=== PATIENT | male | born 1965 | race Caucasian/White ===

== ENCOUNTER → 2016-05-15 | Outpatient (CLI) | payer OTHER ==
[~2016-05-15] MED LIST: ACET-1256 PO; AMLO-114 PO; APDI SC; ASPI325T39 PO; ASPI81TA28 PO; CALC0.2510 PO; CALC667C; CIPR1TAB11 PO; CLOB-65 EXT; ERGO500037 PO; FLM4 PO; INSDGI SC; LEVO50TA6 PO; LINE1TAB6 PO; LPT/20 PO; LSN5 PO; OXYC-57 PO; OXYC1TAB3 PO; TAMS0.4C38 PO; TORS100T13 PO; ZOLP5TAB PO
--- NOTE | 2016-05-15 13:38 | DIAGNOSTIC IMAGING REPORT ---
CT SOFT TISSUE NECK WITHOUT CT DOSE: 502.27 mGy.cm CLINICAL HISTORY: Submandibular gland mass. TECHNIQUE: Images were acquired without intravenous contrast. COMPARISON STUDY: None FINDINGS: By history there was a thyroid ultrasound which reported submandibular mass. I presume that this was performed at an outside institution as there are no ultrasound studies from this institution. The visualized portions of the lung apices are unremarkable. There are tiny bilateral thyroid nodules. No submandibular gland masses are visualized on this noncontrast study. No suspicious parotid gland masses are visualized on this noncontrast study. Tiny intraparotid nodules likely represent lymph nodes. No mucosal space masses are visualized. There is no pathologic adenopathy. IMPRESSION: 1. Multinodular thyroid gland 2. No evidence of pathologic adenopathy 3. No submandibular masses are visualized on this noncontrast examination Electronically signed by: Blayne Auguste M.D. 05/15/2016 1:37 PM Dictated Date/Time: 05/15/2016 1:30 PM
[2016-05-15 15:28] LABS: BLOOD UREA NITROGEN 55 mg/dl (7-18); BUN/CREATININE RATIO 7.3 (10-20); CALCIUM 9.2 mg/dl (8.5-10.1); CARBON DIOXIDE 27 mmol/L (21-32); CHLORIDE 103 mmol/L (98-107); GLUCOSE 102 mg/dl (70-99); MAGNESIUM 2.6 mg/dl (1.8-2.4); PHOSPHORUS 5.4 mg/dl (2.5-4.9); POTASSIUM 3.5 mmol/L (3.5-5.1); SODIUM 142 mmol/L (136-145)
== END | disposition home or self-care (01) ==
LOC: C.CTS 12:09
PROVIDERS: ATTEND Nurse Practitioner Adult Health
DX: K11.8 Other diseases of salivary glands (principal); E55.9 Vitamin D deficiency, unspecified; N18.5 Chronic kidney disease, stage 5

== ENCOUNTER → 2016-06-05 | Outpatient (CLI) | payer OTHER ==
[~2016-06-05] MED LIST changes: +BUPIVACAINE/EPINEPHRINE 0.5% MPF 1:200,000 30 ML VIAL ONE; +HEPARIN SOD (PORCINE) 1000 UNIT/ML 10 ML VIAL ONE; +LIDOCAINE HCL 1% 20 ML VIAL ONE; +SODIUM BICARBONATE 8.4% INJ 50 MEQ/50 ML VIAL ONE
[2016-06-05 13:20] LABS: HEPATITIS B AB NEG
== END | disposition home or self-care (01) ==
LOC: C.LABPBG 08:46
PROVIDERS: ATTEND Internal Medicine Nephrology
DX: R80.9 Proteinuria, unspecified (principal)

== ENCOUNTER 2016-06-13 05:27 | Day surgery (SDC) | payer OTHER ==
[2016-05-31 15:26] VITALS: BMI 33.0
[2016-06-05 12:49] LABS: BASO % 0.4 %; BASO ABS # 0.03 K/uL (0-0.2); COMPLETE YES; HEMATOCRIT 37.4 % (42-52); LYMPH % 15.2 %; LYMPH ABS # 1.04 K/uL (1.2-3.4); MEAN CELL VOLUME 85.2 fL (80-100); MEAN CORPUSCULAR HEMOGLOBIN 29.2 pg (25-34); MEAN CORPUSCULAR HGB CONC 34.2 g/dl (32-36); NEUT % 74.4 %; PLATELET COUNT 212 K/uL (130-400); RED BLOOD COUNT 4.39 M/uL (4.7-6.1); WHITE BLOOD COUNT 6.83 K/uL (4.8-10.8)
[2016-06-05 13:03] LABS: INR 0.9 (0.9-1.1); PARTIAL THROMBOPLASTIN RATIO 1.1; PROTHROMBIN TIME (PATIENT) 10.1 SECONDS (9.0-12.0)
[2016-06-05 13:18] LABS: BUN/CREATININE RATIO 7.4 (10-20); PHOSPHORUS 4.9 mg/dl (2.5-4.9); POTASSIUM 3.7 mmol/L (3.5-5.1)
[2016-06-05 13:25] LABS: CREATININE 7.4 mg/dl (0.60-1.40)
[~2016-06-13] VITALS: Ht 182.9 cm; Wt 110.5 kg
[~2016-06-13 05:27] MED LIST changes: -ASPI325T39 PO; -BUPIVACAINE/EPINEPHRINE 0.5% MPF 1:200,000 30 ML VIAL ONE; -CALC667C; -CIPR1TAB11 PO; -FLM4 PO; -HEPARIN SOD (PORCINE) 1000 UNIT/ML 10 ML VIAL ONE; -LIDOCAINE HCL 1% 20 ML VIAL ONE; -LINE1TAB6 PO; -LSN5 PO; -OXYC-57 PO; -OXYC1TAB3 PO; -SODIUM BICARBONATE 8.4% INJ 50 MEQ/50 ML VIAL ONE; -TAMS0.4C38 PO
[2016-06-13] MEDS ORDERED: CLINDAMYCIN 600 MG/54 ML D5W IV SCH (06:00)
[2016-06-13] MEDS ORDERED: CLINDAMYCIN IV 600 MG in DEXTROSE 5% ADD-VANTAGE 50ML 50 ML IV SCH (06:00)
[2016-06-13] MEDS ORDERED: SODIUM CHLORIDE 0.9% 1000ML 1,000 ML IV SCH (06:00)
--- NOTE | 2016-06-13 06:13 | History and Physical ---
History & Physical Date of Service Jun 13, 2016. History & Physical CC: End stage renal disease HPI: Mr. Hernandez states that he had a left nephrectomy due to renal cancer back in 2014 and that he generally did well postoperatively. He states that he has had some chronic kidney disease related to his single remaining kidney that has progressed somewhat. He had a peritoneal catheter inserted which was buried. He now needs to start dialysis and needs to have his catheter exteriorized. Specifically, denies any headaches, fevers, chills, dizziness, chest pain, shortness of breath, abdominal pain, nausea, vomiting, diarrhea, constipation, dysuria, hematuria, rest pain, claudication, nonhealing wounds or ulcers, or other complaints. ALLERGIES: INCLUDE PENICILLIN. HOME MEDICATIONS: Reconciled in the chart and include the following: Ambien, amlodipine, Bumex, calcitriol, carvedilol, clobetasol, and Tylenol. PAST MEDICAL HISTORY: Positive for hypertension, kidney cancer, and chronic kidney disease. SURGICAL HISTORY: Positive for a left nephrectomy which was attempted to be performed laparoscopically although a left lower incision was required to have it removed. He also had a kidney biopsy back in 2014 and a cardiac catheterization back in 2009 which was normal. FAMILY HISTORY: Positive for cancer in his brother, father and mother; diabetes in two of his brothers and both of his parents; hypertension in three brothers and his mother; kidney disease in a brother and stroke in his father. SOCIAL HISTORY: Negative for tobacco, alcohol or drug use. REVIEW OF SYSTEMS: Negative for fatigue, fevers, sweats, weight loss, exercise intolerance, abnormal moles or rashes, vision changes or photophobia, ear pain, sinus problems, sore throat, cough, shortness of breath, or wheezing, chest pain , palpitations, edema or syncope, abdominal pain, nausea, vomiting, diarrhea, constipation, dysuria, hematuria, rest pain, claudication, muscle weakness, headaches, dizziness, numbness or seizures. PHYSICAL EXAM: His vital signs today were as follows: Heart rate 16, oxygen 98 % on room air. The patient is 72 inches tall and weighs 239 pounds. Constitutional: In general, the patient is a healthy-appearing, for age, well- nourished, well-developed middle-aged male in no acute distress. He is overweight. He is active, alert and oriented x4 with normal recent and remote memory. His head is normocephalic and atraumatic. His eyes are EOMI. His HEENT exam demonstrates no hearing loss, rhinorrhea or pharyngeal erythema. His neck is supple, nontender with a midline trachea without mass or crepitus. His lung exam demonstrates no dyspnea. They are clear to auscultation bilaterally. His cardiovascular exam demonstrates a nondisplaced apical impulse with a regular rate and rhythm without murmurs, lifts, heaves, thrills or gallops. His peripheral pulses are full and equal in all extremities unless otherwise noted, specifically they are normal in his carotid, brachial, radial and femoral pulses. His distal pulses are +2 bilaterally. He demonstrates no bruits in his carotid, abdominal or femoral area. His abdomen is soft, nontender with normoactive bowel sounds in all four quadrants without guarding or rebound. Incisions are healed well. There is no flank or CVA tenderness. His left lower quadrant does demonstrate a transverse surgical incision which is well-healed. He has two small incisions in the left upper quadrant in mid area, one of which has a small erythematous area, which the patient states is due to a suture knot that externalized itself recently. His musculoskeletal exam demonstrates normal tone and strength for age. His bilateral upper extremities demonstrate no cyanosis, edema, clubbing, varicosities or ulcers. His bilateral lower extremities demonstrate trace edema, with no cyanosis, clubbing, ulcerations or gangrene. The patient has grossly intact cranial nerves and grossly intact sensation. ASSESSMENT AND PLAN: End-stage renal disease, not yet on hemodialysis, status post nephrectomy. Post peritoneal catheter insertion. PLAN: Patient is admitted for exteriorization of his peritoneal catheter. The procedure, risks, benefits and alternatives were discussed at length with the patient and he expressed understanding and agreement to proceed with the procedure.
[2016-06-13] MEDS ORDERED: KETAMINE HCL INJ 50 MG/ML 10 ML VIAL ONE (06:28)
[2016-06-13] MEDS ORDERED: PROPOFOL IV EMULSION 10 MG/ML 20 ML VIAL IV ONE (06:28)
[2016-06-13] MEDS ORDERED: SODIUM CHLORIDE 0.9% INJ 10 ML VIAL ONE (06:28)
[2016-06-13] MEDS ORDERED: FENTANYL CITRATE INJ 50 MCG/1 ML 2 ML VIAL ONE (06:28)
[2016-06-13] MEDS ORDERED: MIDAZOLAM HCL 1 MG/ML 2ML VIAL ONE (06:28)
[2016-06-13] MEDS ORDERED: ONDANSETRON INJ 2 MG/ML 2 ML VIAL ONE (06:28)
[2016-06-13] MEDS ORDERED: LIDOCAINE HCL 2% 2 ML VIAL (20MG/ML) ONE (06:28)
[2016-06-13 06:30] VITALS: BP 150/91; PULSE 61; TEMP 36.7; O2SAT 95; Ht 182.9 cm; Wt 110.5 kg
[2016-06-13 06:46] LABS: BUN/CREATININE RATIO 7.1 (10-20); CALCIUM 8.6 mg/dl (8.5-10.1); CREATININE 7.3 mg/dl (0.60-1.40); POTASSIUM 3.4 mmol/L (3.5-5.1)
[2016-06-13] MEDS ORDERED: HEPARIN SOD (PORCINE) 5000 UNIT/ML 1 ML VIAL ONE (07:06)
[2016-06-13] MEDS ORDERED: LACTATED RINGER'S 1000ML 1,000 ML IV PRN (07:21)
[2016-06-13] MEDS ORDERED: FENTANYL CITRATE INJ 50 MCG/1 ML 2 ML VIAL IV PRN (07:30)
[2016-06-13] MEDS ORDERED: ONDANSETRON INJ 2 MG/ML 2 ML VIAL IV PRN (07:30)
--- NOTE | 2016-06-13 07:36 | History & Physical Bridge Note ---
H&P Re-Evaluation Bridge Note: I have examined the patient, reviewed the History & Physical and in the interval since the performance of the History & Physical I have noted the following changes of clinical significance: No changes noted
[2016-06-13] MEDS ORDERED: MIX: 0.5% BUPIVICAINE 20ML/1% LIDO 20ML INJ ONE (08:12)
[2016-06-13] MEDS ORDERED: HEPARIN 1000 UNIT/ML FLUSH ONE (08:13)
[2016-06-13] MEDS ORDERED: ALTEPLASE, RECOMBINANT 1 MG/ML 2 ML VIAL IV ONE (08:15)
[2016-06-13] MEDS ORDERED: OXYC-57 PO (08:22)
--- NOTE | 2016-06-13 08:22 | [facility] Post Operative Brief Note ---
Immediate Operative Summary Operative Date Jun 13, 2016. Pre-Operative Diagnosis End Stage Renal Disease, Post Operative Peritoneal Diaylsis Catheter Placement. Post-Operative Diagnosis Same as preoperative. Procedure(s) Performed Externalization of CAPD Catheter Surgeon Multimedia Teacher Surgeon(s) Ludy Gan PA-C Estimated Blood Loss 2ML Findings flushed easily, instilled with cathflo Specimens None per surgeon Anesthesia MAC Complication(s) None Disposition Recovery Room / PACU
--- NOTE | 2016-06-13 08:24 | Discharge Instructions ---
Discharge Instructions Visit Reason for Visit: End Stage Renal Disease Discharge Discharge Diagnosis / Problem: End stage renal disesase Discharge Goals Goal(s): Therapeutic intervention Activity Recommendations Activity Limitations: per Instructions/Follow-up section Anesthesia . Post Anesthesia Instructions: If you have had General Anesthesia or IV Sedation: * Do not drive today. * Resume driving when surgeon permits. * Do not make important decisions or sign legal documents today. * Call surgeon for: 1. Temperature elevations greater than 101 degrees F. 2. Uncontrollable pain. 3. Excessive bleeding. 4. Persistent nausea and vomiting. 5. Medication intolerance (nausea, vomiting or rash). * For nausea and vomiting use only clear liquids such as: tea, soda, bouillon until nausea subsides, then gradually increase diet as tolerated. * If you have any concerns or questions, call your surgeon's office. If physician is unavailable and it is an emergency, call 911 or go to the nearest emergency room. . Instructions / Follow-Up Instructions / Follow-Up Call [phone] to schedule a follow up appointment if one not already scheduled. Do not shower until peritoneal dialysis nurses give the ok ACTIVITY RECOMMENDATIONS: See Above SPECIAL CARE INSTRUCTIONS: Call your doctor if: * Temperature above 101 degrees * Pain not relieved by pain medicine ordered * There is increased drainage or redness from any incision * You have any unanswered questions or concerns. Diet Recommendations Recommended Home Diet: resume previous diet Procedures Procedures Performed: Externalization of CAPD Catheter Pending Studies Studies pending at discharge: no Medical Emergencies . Who to Call and When: Medical Emergencies: If at any time you feel your situation is an emergency, please call 911 immediately. . Non-Emergent Contact Non-Emergency issues call your: Surgeon . . "Provider Documentation" section prepared by Hunter Lozoya.
--- NOTE | 2016-06-13 08:40 | Anesthesiology Progress Note ---
Anesthesia Post Op Note Date & Time Jun 13, 2016 at 08:40 Vital Signs Pain Intensity: 3 Vital Signs Past 12 Hours Date Time Temp Pulse Resp B/P Pulse Ox O2 Delivery O2 Flow Rate FiO2 06/13/16 08:30 57 18 136/94 96 Room Air 06/13/16 08:23 37.2 61 16 148/101 99 Room Air 06/13/16 06:30 36.7 61 20 150/91 95 Room Air Notes Mental Status: alert / awake / arousable, participated in evaluation Pt Amnestic to Procedure: Yes Nausea / Vomiting: adequately controlled Pain: adequately controlled Airway Patency, RR, SpO2: stable & adequate BP & HR: stable & adequate Hydration State: stable & adequate Anesthetic Complications: no major complications apparent Pt doing well.
[2016-06-13 08:45] VITALS: BP 133/91; PULSE 54; TEMP 36.6; O2SAT 95
[2016-06-13 09:15] VITALS: BP 131/94; PULSE 53; TEMP 36.5; O2SAT 95
--- NOTE | 2016-06-13 09:19 | OPERATIVE REPORT ---
DATE OF OPERATION: 06/13/2016 DATE OF PROCEDURE: 06/13/2016. PREOPERATIVE DIAGNOSIS: End-stage renal disease, insertion of continuous ambulatory peritoneal dialysis catheter. POSTOPERATIVE DIAGNOSIS: Same. PROCEDURE: Exteriorization of CAPD catheter. SURGEON: Dr. Lozoya. CUSTOM HARVESTER: Ludy Gan PA-C. ANESTHETIC: MAC. PROCEDURE INDICATIONS: The patient is a 50-year-old gentleman who had a PD catheter placed last September. He is now ready for exteriorization. Exteriorization of the catheter was discussed with the patient and he understood the risks, options and benefits and agreed to have this procedure. OPERATION AND FINDINGS: The patient was taken to the operating room and placed in supine position. After the abdomen was prepped and draped in a sterile manner, local anesthetic was administered. The old incision was then opened approximately 3 cm. The catheter was identified. It was brought out through a separate stab wound just lateral to the incision. Incision had adequate hemostasis and was therefore closed with running 3-0 Vicryl subcutaneous layer and running 4-0 subcuticular Vicryl for the skin edges and Dermabond for a dressing. The catheter was then aspirated and flushed with heparinized saline. It flushed fairly easily. There was some old blood in the catheter so we decided to instill Cathflo in the catheter. This will be taken out at a later time in dialysis. The injected saline was almost all able to be retrieved as outflow. The dressings were then applied to the wound. The patient left the operating room in satisfactory condition and tolerated the procedure well. Ludy Gan assisted due to lack of resident availability. I attest to the content of the Intraoperative Record and any orders documented therein. Any exceptio ns are noted below.
--- NOTE | 2016-06-13 14:03 | Progress Note ---
Progress Note Date of Service Jun 13, 2016. Progress Note I assisted Dr Lozoya with Sesar Hernandez's Externalization of CAPD Catheter on , d/t lack of resident availability.
[2016-08-13] MEDS ORDERED: TAMS0.4C38 PO (12:28)
== END 2016-06-13 09:52 | disposition home or self-care (01) ==
LOC: C.ACU 05:27
PROVIDERS: ATTEND Surgery Vascular Surgery
DX: I12.0 Hypertensive chronic kidney disease with stage 5 chronic kidney disease or end stage renal disease (principal); N18.6 End stage renal disease; Z85.528 Personal history of other malignant neoplasm of kidney; Z99.2 Dependence on renal dialysis; Z90.5 Acquired absence of kidney; Z84.1 Family history of disorders of kidney and ureter; Z80.9 Family history of malignant neoplasm, unspecified

== ENCOUNTER → 2016-06-22 | Outpatient (CLI) | payer OTHER ==
[~2016-06-22] MED LIST changes: +ASPI325T39 PO; +CALC667C; +CIPR1TAB11 PO; +FLM4 PO; +LINE1TAB6 PO; +LSN5 PO; +OXYC-57 PO; +OXYC1TAB3 PO; +TAMS0.4C38 PO
--- NOTE | 2016-06-22 13:16 | DIAGNOSTIC IMAGING REPORT ---
ABDOMEN AND PELVIS CT WITHOUT CONTRAST CT DOSE: 1224.18 mGy.cm HISTORY: None functioning catheter END STAGE RENAL DISEASE, NON FUNCTIONING PD CATH TECHNIQUE: Multiaxial CT images of the abdomen and pelvis were performed without contrast. COMPARISON STUDY: 04/04/2016 FINDINGS: Lung bases are clear. Mild fatty infiltration of liver. Gallbladder is negative for distention. Prior left effectively. Right kidney is negative for hydronephrosis. The adrenal glands are currently unremarkable. Peritoneal dialysis catheter is inserted via periumbilical approach with catheter coiled in the left paracolic gutter region. It is essentially unchanged compared to the prior exam. There is no evidence for surrounding mass or collection. Bowel pattern is nonobstructive. Bladder is relatively collapsed. There is no significant free fluid within the pelvic cul-de-sac. The appendix is normal. IMPRESSION: 1. Peritoneal dialysis catheter is unchanged in position compared to the prior study. 2. Nonobstructive bowel pattern. 3. Normal appendix. 4. Stable postoperative changes consistent with a prior left nephrectomy. Electronically signed by: Shree Stokes M.D. 06/22/2016 1:14 PM Dictated Date/Time: 06/22/2016 1:08 PM
== END | disposition home or self-care (01) ==
LOC: C.CTS 12:52
PROVIDERS: ATTEND Surgery Vascular Surgery
DX: N18.6 End stage renal disease (principal)

== ENCOUNTER 2016-07-03 09:07 | Inpatient (IN) | payer OTHER ==
[~2016-07-03] VITALS: Ht 182.9 cm; Wt 109.7 kg
[~2016-07-03 09:07] MED LIST changes: -ASPI325T39 PO; -CALC667C; -CIPR1TAB11 PO; -FLM4 PO; -LINE1TAB6 PO; -LSN5 PO; -OXYC-57 PO; -OXYC1TAB3 PO; -TAMS0.4C38 PO
--- NOTE | 2016-07-03 10:08 | DIAGNOSTIC IMAGING REPORT ---
CHEST ONE VIEW PORTABLE CLINICAL HISTORY: Sepsis COMPARISON STUDY: 12/15/2015 FINDINGS: The cardiac and mediastinal contours are normal. There is no evidence of focal pulmonary consolidation. There is no evidence of failure. No pleural effusions are visualized.[ There is a calcified left upper lobe granuloma.. IMPRESSION: No active disease in the chest. Electronically signed by: Blayne Auguste M.D. 07/03/2016 10:07 AM Dictated Date/Time: 07/03/2016 10:06 AM
[2016-07-03 10:10] LABS: BASO % 0.1 %; BASO ABS # 0.02 K/uL (0-0.2); COMPLETE YES; EOS % 0.5 %; HEMATOCRIT 37.6 % (42-52); IG% 0.4 %; LYMPH % 4.2 %; LYMPH ABS # 0.77 K/uL (1.2-3.4); MEAN CELL VOLUME 84.7 fL (80-100); MEAN CORPUSCULAR HEMOGLOBIN 28.8 pg (25-34); MEAN PLATELET VOLUME 11.6 fL (7.4-10.4); MONO % 3.1 %; NEUT % 91.7 %; PLATELET COUNT 251 K/uL (130-400); RED BLOOD COUNT 4.44 M/uL (4.7-6.1); WHITE BLOOD COUNT 18.49 K/uL (4.8-10.8)
[2016-07-03 10:20] LABS: PARTIAL THROMBOPLASTIN RATIO 1.1; PROTHROMBIN TIME (PATIENT) 10.7 SECONDS (9.0-12.0)
[2016-07-03] MEDS ORDERED: ASPI325T39 PO (10:29)
[2016-07-03 10:30] LABS: ALB/GLOB RATIO 0.9 (0.9-2); CALCIUM 9.6 mg/dl (8.5-10.1); CREATININE 8.3 mg/dl (0.60-1.40); POTASSIUM 3.4 mmol/L (3.5-5.1)
[2016-07-03 11:12] LABS: URINE APPEARANCE CLEAR (CLEAR); URINE BILIRUBIN NEG (NEG); URINE COLOR YELLOW; URINE EPITHELIAL CELL AUTO 20-30 /lpf (0-5); URINE NITRITE NEG (NEG); URINE SPECIFIC GRAVITY 1.019 (1.000-1.030); UROBILINOGEN NEG (NEG); ZZUR CULT IF INDIC CLEAN CATCH NO
[2016-07-03 11:19] LABS: MANUAL MICROSCOPIC REQUIRED? NO; REVIEW REQ? NO
[2016-07-03] MEDS ORDERED: MoRPHine SULFATE 4 MG/ML 1 ML CARP\\VIAL IV STA (12:36)
[2016-07-03] MEDS ORDERED: MoRPHine SULFATE 4 MG/ML 1 ML CARP\\VIAL IV PRN (12:45)
[2016-07-03] MEDS ORDERED: IV FLUIDS COMPLETED PRN (13:00)
[2016-07-03] MEDS ORDERED: CLOBETASOL PROPIONATE 0.05% OINT 15 GM TUBE EXT PRN (13:30)
[2016-07-03] MEDS ORDERED: ACETAMINOPHEN 500 MG TAB PO PRN (13:30)
[2016-07-03] MEDS ORDERED: GLUCOSE 40% GEL 15 GM TUBE PO PRN (13:45)
[2016-07-03] MEDS ORDERED: DEXTROSE 50% 50 ML SYR IV PRN (13:45)
[2016-07-03] MEDS ORDERED: GLUCAGON FOR INJ 1 MG VIAL SQ PRN (13:45)
[2016-07-03] MEDS ORDERED: GLUCOSE 10 TABS/TUBE PO PRN (13:45)
[2016-07-03] MEDS ORDERED: CALCITRIOL 0.25 MCG CAP PO SCH (14:00)
[2016-07-03] MEDS ORDERED: SODIUM CHLORIDE 0.9% 1000ML 1,000 ML IV ONE (14:15)
[2016-07-03] MEDS ORDERED: VANCOMYCIN CONSULT ACTIVE PRN (14:45)
--- NOTE | 2016-07-03 14:57 | Pharmacy Progress Note ---
Pharmacy Antibiotic Consult Date of Service: Jul 03, 2016. Pharmacy Dosing Scope Pharmacy is consulted to initiate Vancomycin IV dosing therapy, order appropriate labs and adjust drug dose/frequency. Subjective The patient is a 50 year old male admitted on Jul 03, 2016 at 13:25 with fever and vomiting. PMH significant for CKD, h/o nephrectomy, renal CA. Objective Height (Feet): 6 Height (Inches): 0 Weight (Kilograms): 108.400 Lab Results (24hrs): Laboratory Tests Test 07/03/16 08:35 BUN/Creatinine Ratio 8.0 Blood Urea Nitrogen 67 mg/dl Creatinine 8.30 mg/dl White Blood Count 18.49 K/uL Red Blood Count 4.44 M/uL Hemoglobin 12.8 g/dL Hematocrit 37.6 % Mean Corpuscular Volume 84.7 fL Mean Corpuscular Hemoglobin 28.8 pg Mean Corpuscular Hemoglobin Concent 34.0 g/dl Platelet Count 251 K/uL Mean Platelet Volume 11.6 fL Neutrophils (%) (Auto) 91.7 % Lymphocytes (%) (Auto) 4.2 % Monocytes (%) (Auto) 3.1 % Eosinophils (%) (Auto) 0.5 % Basophils (%) (Auto) 0.1 % Neutrophils # (Auto) 16.96 K/uL Lymphocytes # (Auto) 0.77 K/uL Monocytes # (Auto) 0.57 K/uL Eosinophils # (Auto) 0.10 K/uL Basophils # (Auto) 0.02 K/uL Micro Results: Item Value Date Time Blood Culture Received 07/03/16 0835 Blood Pending Blood Culture Received 07/03/16 1000 Blood Pending Assessment & Plan Assessment 50 year old male with ESRD on peritoneal dialysis admitted with cellulitis. Patient underwent exteriorization of continuous ambulatory peritoneal dialysis catheter. He started dialysis about two weeks ago and it was quickly determined that the catheter was not draining appropriately. Unsure when last dialysis took place. *H&P not dictated at the time of this consult * Plan Vancomycin IV for treatment of cellulitis. * Vanc 2000 mg (18.4 mg/kg) IV today at 1500. * Further dosing will be based on random levels due to ESRD on PD. * Goal trough level estimate: between 15 - 20 mcg/mL. * Random level has been ordered for 07/04/16 am. Pharmacy will continue to follow and will adjust dose/frequency as necessary. Thank you
[2016-07-03] MEDS ORDERED: VANCOMYCIN INJ 2,000 MG in SODIUM CHLORIDE 0.9% 500ML 500 ML IV ONE (15:00)
[2016-07-03 15:27] VITALS: BP 144/98; PULSE 92; TEMP 36.8; O2SAT 98; Ht 182.9 cm; Wt 109.7 kg
[2016-07-03 15:31] VITALS: BP 128/80; PULSE 72; TEMP 36.9; O2SAT 96
--- NOTE | 2016-07-03 16:15 | History and Physical ---
History & Physical Date & Time of Service: Jul 03, 2016 at 16:02 Chief Complaint: Cellulitis, Fever Primary Care Physician: Harshad Hare M.D. History of Present Illness Source: patient, family This is a 50 yo m that presented to the ED with acute abdominal pain after his PD catheter was placed in a position where it would be used. This is a CKD patient with a history of left nephrectomy for kidney carcinoma. The PD cath was supposedly placed approx a year ago and only two weeks ago was moved so that it could be used. Approx 3 days prior he had increasing pain in the site where the stitches were placed and has been measuring fevers at home as high as 101.8F. He has not been taking any medications at home for this. It is at BL a 8 /10 and he has "cramping" episodes which make it a 10/10. exacerbated by touching it. He noted a small amount of yellow drainage and redness surrounding the stitch sites. He has also been suffering from N&V, and nose bleeds from dry heaving. He is very uncomfortable during the interview. He follows with Dr Barreto for nephrology but has not seen him in a long time Past Medical/Surgical History Medical Problems: (1) Benign hypertension Status: Chronic (2) Hypothyroidism Status: Chronic (3) R index finger surgery Status: Resolved Left nephrectomy Left kidney carcinoma CKD DMII Family History Cancer Diabetes mellitus Heart disease Hypertension Kidney disease Kidney stones Social History Smoking Status: Never Smoker Smokeless Tobacco Use: No Alcohol Use: none Drug Use: none Marital Status: Occupational Status: disabled Allergies Coded Allergies: Penicillins (Verified Allergy, Mild, RASH, HIVES, ITCHING, 07/03/16) Home Medications Scheduled Amlodipine (Norvasc), 10 MG PO HS Aspirin (Aspirin Ec), 325 MG PO HS Atorvastatin (Atorvastatin Calcium), 1 TAB PO HS Calcitriol (Rocaltrol Cap), 0.25 MCG PO Q2D Ergocalciferol (Vitamin D 40221 Unit), 50,000 UNIT PO WK Insulin Glargine (Lantus), 24 UNITS SC HS Insulin Glulisine (Apidra Solostar), 4 UNITS SC TIDM Levothyroxine Sodium (Levothyroxine Sodium), 1 TAB PO QAM Torsemide (Demadex), 100 MG PO QAM Scheduled PRN Acetaminophen (Tylenol), 500 MG PO Q6 PRN for Pain Clobetasol Propionate 0.05% (Temovate 0.05%), 1 APPLN EXT BID PRN for PRN Zolpidem Tartrate (Ambien), 5 MG PO HS PRN for Insomnia Review of Systems Constitutional: + fever Eyes: No worsening of vision ENT: + unusual epistaxis, No hearing loss Respiratory: No cough, No dyspnea at rest, No dyspnea on exertion, No shortness of breath, No sputum, No wheezing Cardiovascular: No chest pain Abdomen: + nausea, + pain, + vomiting Neurologic: No balance problems, No numbness/tingling, No weakness Endocrine: No fatigue Integumentary: + problem reported (cellulitis and drainage from PD cath), No rash Physical Exam Vital Signs Date Time Temp Pulse Resp B/P Pulse Ox O2 Delivery O2 Flow Rate FiO2 07/03/16 15:31 36.9 72 18 128/80 96 Room Air 07/03/16 15:27 Room Air 07/03/16 12:22 82 22 145/95 99 07/03/16 11:05 86 22 143/91 99 Room Air 07/03/16 10:19 94 Room Air 07/03/16 10:17 37.2 88 16 132/94 94 07/03/16 09:34 85 07/03/16 09:15 37.4 104 20 146/96 98 Room Air General Appearance: + moderate distress Head: normocephalic, atraumatic Eyes: normal inspection ENT: normal ENT inspection Neck: supple Respiratory/Chest: lungs clear, normal breath sounds, no respiratory distress, no accessory muscle use Cardiovascular: regular rate, rhythm, no murmur Abdomen/GI: normal bowel sounds, + pertinent finding (cellulitis noted surrounding the PD cath site, extremely tender to touch, no visible drainage or flutuance noted) Back: normal inspection Extremities/Musculoskelatal: normal inspection, no calf tenderness, no pedal edema Neurologic/Psych: alert, normal mood/affect, oriented x 3 Skin: + pertinent finding (noted above) Lymphatic: no adenopathy Diagnostics Laboratory Results Results Past 24 Hours Test 07/03/16 08:35 07/03/16 10:04 07/03/16 10:17 07/03/16 10:50 Range/Units White Blood Count 18.49 4.8-10.8 K/uL Red Blood Count 4.44 4.7-6.1 M/uL Hemoglobin 12.8 14.0-18.0 g/dL Hematocrit 37.6 42-52 % Mean Corpuscular Volume 84.7 80-100 fL Mean Corpuscular Hemoglobin 28.8 25-34 pg Mean Corpuscular Hemoglobin Concent 34.0 32-36 g/dl Platelet Count 251 130-400 K/uL Mean Platelet Volume 11.6 7.4-10.4 fL Neutrophils (%) (Auto) 91.7 % Lymphocytes (%) (Auto) 4.2 % Monocytes (%) (Auto) 3.1 % Eosinophils (%) (Auto) 0.5 % Basophils (%) (Auto) 0.1 % Neutrophils # (Auto) 16.96 1.4-6.5 K/uL Lymphocytes # (Auto) 0.77 1.2-3.4 K/uL Monocytes # (Auto) 0.57 0.11-0.59 K/uL Eosinophils # (Auto) 0.10 0-0.5 K/uL Basophils # (Auto) 0.02 0-0.2 K/uL RDW Standard Deviation 48.3 36.4-46.3 fL RDW Coefficient of Variation 15.7 11.5-14.5 % Immature Granulocyte % (Auto) 0.4 % Immature Granulocyte # (Auto) 0.07 0.00-0.02 K/uL Prothrombin Time 10.7 9.0-12.0 SECONDS Prothromb Time International Ratio 1.0 0.9-1.1 Activated Partial Thromboplast Time 29.5 21.0-31.0 SECONDS Partial Thromboplastin Ratio 1.1 Sodium Level 140 136-145 mmol/L Potassium Level 3.4 3.5-5.1 mmol/L Chloride Level 101 98-107 mmol/L Carbon Dioxide Level 25 21-32 mmol/L Anion Gap 14.0 3-11 mmol/L Blood Urea Nitrogen 67 7-18 mg/dl Creatinine 8.30 0.60-1.40 mg/dl Est Creatinine Clear Calc Drug Dose 13.2 ml/min Estimated GFR () 7.7 Estimated GFR (Non- 6.7 BUN/Creatinine Ratio 8.0 10-20 Random Glucose 152 70-99 mg/dl Calcium Level 9.6 8.5-10.1 mg/dl Total Bilirubin 0.8 0.2-1 mg/dl Aspartate Amino Transf (AST/SGOT) 17 15-37 U/L Alanine Aminotransferase (ALT/SGPT) 32 12-78 U/L Alkaline Phosphatase 94 45-117 U/L Total Protein 8.6 6.4-8.2 gm/dl Albumin 4.1 3.4-5.0 gm/dl Globulin 4.5 2.5-4.0 gm/dl Albumin/Globulin Ratio 0.9 0.9-2 Bedside Lactic Acid Venous 1.05 0.90-1.70 mmol/L Influenza Type A Antigen Neg for Influ A NEG Influenza Type B Antigen Neg for Influ B NEG Urine Color YELLOW Urine Appearance CLEAR CLEAR Urine pH 6.0 4.5-7.5 Urine Specific [place] 1.019 1.000-1.030 Urine Protein 3+ NEG Urine Glucose (UA) TRACE NEG Urine Ketones NEG NEG Urine Occult Blood 1+ NEG Urine Nitrite NEG NEG Urine Bilirubin NEG NEG Urine Urobilinogen NEG NEG Urine Leukocyte Esterase NEG NEG Urine WBC (Auto) 1-5 0-5 /hpf Urine RBC (Auto) 0-4 0-4 /hpf Urine Hyaline Casts (Auto) 1-5 0-5 /lpf Urine Epithelial Cells (Auto) 20-30 0-5 /lpf Urine Bacteria (Auto) NEG NEG Microbiology Results 07/03/16 Blood Culture, Received Pending 07/03/16 Blood Culture, Received Pending Diagnostic Radiology CHEST ONE VIEW PORTABLE CLINICAL HISTORY: Sepsis COMPARISON STUDY: 12/15/2015 FINDINGS: The cardiac and mediastinal contours are normal. There is no evidence of focal pulmonary consolidation. There is no evidence of failure. No pleural effusions are visualized.[ There is a calcified left upper lobe granuloma.. IMPRESSION: No active disease in the chest. EKG Normal sinus rhythm Normal ECG When compared with ECG of 15-DEC-2015 07:37, Vent. rate has increased BY 43 BPM QT has lengthened QTc - 450 Impression Assessment and Plan This is a 50 yo m with cellulitis surrounding his PD catheter site. There is concern for MRSA so vanco will be the initial choice and will be renally dosed. Cellulitis surrounding PD catheter; erythema, leukocytosis - Vanco will be initial agent, will deescalate through the admission - follow CBC - 100 NSS @100cc/h x 1 - cellulitis has been marked, reassess daily - morphine 6 mg q 4 h - unable to take Dilaudid because of N&V CKD requiring peritoneal dialysis - assess volume status accordingly - I&O and daily weights - nephro consult DMII - insulin ISS - BSG ac hs HTN - continue amlodipine and torsemide Hypothyroidism - continue levothyroxine DVt prophylaxis - heparin q 12 Resident Physician Supervision Note: I interviewed and examined the patient. Discussed with Dr. Ponce and agree with findings and plan as documented in the note. Any exceptions or clarifications are listed here: None Documented By: Genaro Hernandez abdominal pain, fevers, redness around PD cath site vitals noted abd w patchy area of erythema tender around site, no fluctuance to suggest abscess. remainder of abdomen totally nontender abdominal wall cellulitis - no evidence peritonitis at this time - does appear to meet SIRS criteria w HR and WBC therefore abdominal wall cellulitis w sepsis. vanco for MRSA; nephrology consult otherwise as above Level of Care Med/Surg Advanced Directives Existing Living Will: No Existing Power of Conservation Educator: No Resuscitation Status FULL RESUSCITATION VTE Prophylaxis VTE Risk Assessment Done? Y/N: Yes Risk Level: Moderate Given or contraindicated: Unfractionated heparin SQ Social Service Consult None Apply Note Total Time: Critical Care 30 - 74 minutes Additional Copies To Harshad Hare M.D.
--- NOTE | 2016-07-03 16:16 | EMERGENCY ROOM VISIT NOTE ---
History Report prepared by Shiloh: Nan Durand Under the Supervision of: Dr. Gene Gonzalez M.D. First contact with patient: 09:32 Chief Complaint: FEVER Stated Complaint: TEMP,PAIN AT INCISION,VOMITING History of Present Illness The patient is a 50 year old male who presents to the Emergency Room with complaints of a persistent fever that began 3 days ago. His highest temperature he recorded was 101.8 this morning around 4AM. He notes that he has also been vomiting since 4 days ago. He notes that the symptoms started after a bloody nose that he had difficulty controlling. He has occasionally been coughing up clots of blood when he feels like he has a "thickness" in this throat. On June 13, Dr. Lozoya performed exteriorization of a continuous ambulatory peritoneal dialysis catheter. He developed increased pain to the insertion site 3 days ago and noticed some scant yellow drainage. The patient started peritoneal dialysis about 2 weeks ago, but the following day they determined that the catheter was not draining appropriately, so he has not had any further dialysis. He is scheduled for a procedure to repair the catheter on July 13. The patient has a history of kidney cancer and had his left kidney removed. He did not have chemotherapy. He notes that he has another disease that he does not know the name of which also affected his kidneys. He does make urine. He is not on blood thinners. Source of History: patient Onset: 3 days ago Position: other (global) Symptom Intensity: tmax 101.8 Timing: other (persistent) Associated Symptoms: + abdominal pain (at dialysis catheter insertion site) , + cough, + vomiting Review of Systems See HPI for pertinent positives & negatives. A total of 10 systems reviewed and were otherwise negative. Past Medical & Surgical Medical Problems: (1) Abdominal pain (2) Benign hypertension (3) Cellulitis (4) Fever (5) Hyperglycemia (6) Hypothyroidism (7) Leukocytosis (8) R index finger surgery (9) Vision loss Family History Cancer Diabetes mellitus Heart disease Hypertension Kidney disease Kidney stones Social History Smoking Status: Never Smoker Alcohol Use: none Drug Use: none Marital Status: Housing Status: lives with family Occupation Status: employed Current/Historical Medications Scheduled Amlodipine (Norvasc), 10 MG PO HS Aspirin (Aspirin Ec), 325 MG PO HS Atorvastatin (Atorvastatin Calcium), 1 TAB PO HS Calcitriol (Rocaltrol Cap), 0.25 MCG PO Q2D Ergocalciferol (Vitamin D 44835 Unit), 50,000 UNIT PO WK Insulin Glargine (Lantus), 24 UNITS SC HS Insulin Glulisine (Apidra Solostar), 4 UNITS SC TIDM Levothyroxine Sodium (Levothyroxine Sodium), 1 TAB PO QAM Torsemide (Demadex), 100 MG PO QAM Scheduled PRN Acetaminophen (Tylenol), 500 MG PO Q6 PRN for Pain Clobetasol Propionate 0.05% (Temovate 0.05%), 1 APPLN EXT BID PRN for PRN Zolpidem Tartrate (Ambien), 5 MG PO HS PRN for Insomnia Allergies Coded Allergies: Penicillins (Verified Allergy, Mild, RASH, HIVES, ITCHING, 07/03/16) Physical Exam Vital Signs Date Time Temp Pulse Resp B/P Pulse Ox O2 Delivery O2 Flow Rate FiO2 07/03/16 11:05 86 22 143/91 99 Room Air 07/03/16 10:19 94 Room Air 07/03/16 10:17 37.2 88 16 132/94 94 07/03/16 09:34 85 07/03/16 09:15 37.4 104 20 146/96 98 Room Air Physical Exam Constitutional: Vital signs reviewed. Eyes: Pupils are equal round reactive to light. Conjunctiva are noninjected. ENT: Pharynx is clear without erythema or exudate. Mucous membranes are moist. Neck supple without meningeal signs. Respiratory: Clear to auscultation bilaterally. Breath sounds are equal bilaterally. Cardiovascular: Tachycardic rate at 104 and regular rhythm. No rubs or gallops. GI: Soft, nondistended. Bowel sounds are present. Dialysis catheter in the right lower quadrant with minimal tenderness to the insertion site. No drainage or cellulitis. No tenderness to the abdomen otherwise. Musculoskeletal: No peripheral edema. No lower extremity tenderness. No CVA tenderness. Integumentary: No cyanosis. Neurological: The patient is awake and alert. No focal deficits. Psychiatric: Normal affect. Medical Decision & Procedures ER Provider Diagnostic Interpretation: Radiology results as stated below per my review and the radiologist's interpretation: CHEST ONE VIEW PORTABLE CLINICAL HISTORY: Sepsis COMPARISON STUDY: 12/15/2015 FINDINGS: The cardiac and mediastinal contours are normal. There is no evidence of focal pulmonary consolidation. There is no evidence of failure. No pleural effusions are visualized.[ There is a calcified left upper lobe granuloma.. IMPRESSION: No active disease in the chest. Electronically signed by: Blayne Auguste M.D. 07/03/2016 10:07 AM Dictated Date/Time: 07/03/2016 10:06 AM Laboratory Results 07/03/16 08:35 Red Blood Count 4.44, Mean Corpuscular Volume 84.7, Mean Corpuscular Hemoglobin 28.8, Mean Corpuscular Hemoglobin Concent 34.0, Mean Platelet Volume 11.6, Neutrophils (%) (Auto) 91.7, Lymphocytes (%) (Auto) 4.2, Monocytes (%) (Auto) 3.1, Eosinophils (%) (Auto) 0.5, Basophils (%) (Auto) 0.1, Neutrophils # (Auto) 16.96, Lymphocytes # (Auto) 0.77, Monocytes # (Auto) 0.57, Eosinophils # (Auto) 0.10, Basophils # (Auto) 0.02 07/03/16 08:35 Test 07/03/16 08:35 07/03/16 10:04 07/03/16 10:17 07/03/16 10:50 White Blood Count 18.49 K/uL (4.8-10.8) Red Blood Count 4.44 M/uL (4.7-6.1) Hemoglobin 12.8 g/dL (14.0-18.0) Hematocrit 37.6 % (42-52) Mean Corpuscular Volume 84.7 fL (80-100) Mean Corpuscular Hemoglobin 28.8 pg (25-34) Mean Corpuscular Hemoglobin Concent 34.0 g/dl (32-36) Platelet Count 251 K/uL (130-400) Mean Platelet Volume 11.6 fL (7.4-10.4) Neutrophils (%) (Auto) 91.7 % Lymphocytes (%) (Auto) 4.2 % Monocytes (%) (Auto) 3.1 % Eosinophils (%) (Auto) 0.5 % Basophils (%) (Auto) 0.1 % Neutrophils # (Auto) 16.96 K/uL (1.4-6.5) Lymphocytes # (Auto) 0.77 K/uL (1.2-3.4) Monocytes # (Auto) 0.57 K/uL (0.11-0.59) Eosinophils # (Auto) 0.10 K/uL (0-0.5) Basophils # (Auto) 0.02 K/uL (0-0.2) RDW Standard Deviation 48.3 fL (36.4-46.3) RDW Coefficient of Variation 15.7 % (11.5-14.5) Immature Granulocyte % (Auto) 0.4 % Immature Granulocyte # (Auto) 0.07 K/uL (0.00-0.02) Prothrombin Time 10.7 SECONDS (9.0-12.0) Prothromb Time International Ratio 1.0 (0.9-1.1) Activated Partial Thromboplast Time 29.5 SECONDS (21.0-31.0) Partial Thromboplastin Ratio 1.1 Anion Gap 14.0 mmol/L (3-11) Est Creatinine Clear Calc Drug Dose 13.2 ml/min Estimated GFR () 7.7 Estimated GFR (Non- 6.7 BUN/Creatinine Ratio 8.0 (10-20) Calcium Level 9.6 mg/dl (8.5-10.1) Total Bilirubin 0.8 mg/dl (0.2-1) Aspartate Amino Transf (AST/SGOT) 17 U/L (15-37) Alanine Aminotransferase (ALT/SGPT) 32 U/L (12-78) Alkaline Phosphatase 94 U/L (45-117) Total Protein 8.6 gm/dl (6.4-8.2) Albumin 4.1 gm/dl (3.4-5.0) Globulin 4.5 gm/dl (2.5-4.0) Albumin/Globulin Ratio 0.9 (0.9-2) Bedside Lactic Acid Venous 1.05 mmol/L (0.90-1.70) Influenza Type A Antigen Neg for Influ A (NEG) Influenza Type B Antigen Neg for Influ B (NEG) Urine Color YELLOW Urine Appearance CLEAR (CLEAR) Urine pH 6.0 (4.5-7.5) Urine Specific [place] 1.019 (1.000-1.030) Urine Protein 3+ (NEG) Urine Glucose (UA) TRACE (NEG) Urine Ketones NEG (NEG) Urine Occult Blood 1+ (NEG) Urine Nitrite NEG (NEG) Urine Bilirubin NEG (NEG) Urine Urobilinogen NEG (NEG) Urine Leukocyte Esterase NEG (NEG) Urine WBC (Auto) 1-5 /hpf (0-5) Urine RBC (Auto) 0-4 /hpf (0-4) Urine Hyaline Casts (Auto) 1-5 /lpf (0-5) Urine Epithelial Cells (Auto) 20-30 /lpf (0-5) Urine Bacteria (Auto) NEG (NEG) Laboratory results as reviewed by me. ECG Indication: other (nursing protocol) Rate (beats per minute): 90 Rhythm: normal sinus Findings: no acute ischemic change, no ectopy ED Course 0936: The patient was evaluated in room A10. A complete history and physical exam was performed. 1130: I reassessed the patient and updated him on results. He had more pain at the catheter insertion site. 1132: I discussed the case with Dr. Lozoya - Vascular Surgery. He doubts the patient has a catheter infection. He agrees with the plan for hospitalization. 1137: I discussed the case with Natali, calling for Dr. Hernandez - [facility] Hospitalist. The patient will be evaluated for further management. Medical Decision This is a 50-year-old male who presents with fever and vomiting. Differential diagnosis includes sepsis, urinary tract infection, pyelonephritis, pneumonia, influenza, SBP, catheter infection, wound infection. I did perform a limited focused review of portions of the patient's old chart on the electronic medical record. On June 13, Dr. Lozoya performed exteriorization of a continuous ambulatory peritoneal dialysis catheter. I did evaluate the patient as noted above. The patient is presenting with fever and vomiting. He also complains of pain to the insertion site of his peritoneal catheter. He did note some purulent drainage. On examination there is some mild inferior erythema but no drainage that I note. He has some mild tenderness to that area but no signs of peritonitis. IV access was established. The patient was placed on a continuous cardiac care nurse. I did treat him with morphine 2 mg IV. I did order and personally review the patient' s 12-lead EKG and chest x-ray as described above. I did order and review the patient's blood work as noted in the electronic medical record. His white blood cell count is elevated. He has mild anemia. His creatinine is elevated due to his end-stage renal disease. I did reassess the patient. I did discuss the case with Dr. Lozoya of vascular surgery. He does not feel the catheter site was likely infected. I did discuss the case with medicine for further inpatient care and IV antibiotics. Consults Time Called: 1125 Consulting Physician: Dr. Lozoya - Vascular Surgery Returned Call: [phone] I discussed the case with him. He doubts the patient has a catheter infection. He agrees with the plan for hospitalization. Additional Consults: Time Called: 1130 Consulted Physician: Natali, calling for Dr. Hernandez [facility] Hospitalist Returned Call: [phone] Additional Comments: I discussed the case with her. The patient will be evaluated for further management. Impression Primary Impression: Acute febrile illness Additional Impression: End stage renal disease Scribe Attestation The scribe's documentation has been prepared under my direct and personally reviewed by me in its entirety. I confirm that the note above accurately reflects all work, treatment, procedures, and medical decision making performed by me. Departure Information Dispostion Being Evaluated By Hospitalist Referrals ,Harshad Rey M.D. (PCP) Patient Instructions My [facility] Problem Qualifiers
[2016-07-03] MEDS: MoRPHine SULFATE 10 MG/ML CARP/VIAL IV PRN ×2 (16:23→20:13)
[2016-07-03] MEDS ORDERED: INSULIN ASPART 100 UNITS/ML 3 ML PEN SC SCH (16:30)
--- NOTE | 2016-07-03 17:11 | Nephrology Consultation ---
Nephrology Consultation Date & Providers Date of Consultation: Jul 03, 2016. Primary Care Provider: Harshad Hare M.D. Referring Provider: Reason for Consultation ESRD; PD catheter malfunction History of Present Illness Mr. Sesar Hernandez is a 50 year-old male with obesity, nonalcoholic steatohepatitis, diabetes mellitus, FSGS, arteriolosclerosis and CKD V following nephrectomy for a localized RCC. Buried PD catheter was placed by Dr. Lozoya without complications on October 13, 2015. In the setting of increasing symptoms of advanced renal failure, catheter was externalized on June 14 2015. Unfortunately, catheter did not drain appropriately for PD. CT of the abdomen was reviewed earlier this month. Mr. Hernandez was placed on a bowel regimen. I saw Mr. Hernandez in the nephrology clinic on June 25. Revision of the catheter suspecting an omental sheath was scheduled for next week. Mr. Hernnadez presented to the ED at [facility] today with 48 hours of sharp abdominal pain around the catheter site. Increasing fullness and induration is noted. He has had fevers and chills. Mr. Hernandez denies generalized abdominal pain but he has discomfort with positional changes. He has nausea an anorexia. There were several episodes of vomiting at home. This was non bilious and non bloody. Past Medical/Surgical History Medical: Abnormal CT scan (R93.8) Anemia (D64.9) CRD (chronic renal disease), stage V (N18.5) Diabetes mellitus (E11.9) Dysesthesia (R20.8) Hyperlipidemia (E78.5) Hyperphosphatemia (E83.39) Hypertension (I10) Hypertriglyceridemia (E78.1) Hypothyroidism (E03.9) Laryngopharyngeal reflux (K21.9) Obstructive sleep apnea (G47.33) Proteinuria (R80.9) Solitary thyroid nodule (E04.1) Type 2 diabetes mellitus, uncontrolled (E11.65) Vitamin D deficiency (E55.9) Surgical: Kidney biopsy in 2013. Radical nephrectomy. PD catheter placement. Allergies Coded Allergies: Penicillins (Verified Allergy, Mild, RASH, HIVES, ITCHING, 07/03/16) Inpatient Medications Current Inpatient Medications Medications (Trade) Dose Ordered Sig/Leland Route Start Time Stop Time Status Last Admin Dose Admin Miscellaneous (Iv Fluids Completed) 1 ea PRN PRN N/A 07/03/16 13:00 07/03/17 12:59 Amlodipine Besylate (Norvasc Tab) 10 mg HS PO 07/03/16 22:00 08/02/16 21:59 Aspirin (Ecotrin Tab) 325 mg HS PO 07/03/16 22:00 08/02/16 21:59 Atorvastatin Calcium (Lipitor Tab) 20 mg HS PO 07/03/16 22:00 08/02/16 21:59 Ergocalciferol (Vitamin D Cap) 50,000 interunit Q7D PO 07/08/16 08:00 08/07/16 07:59 Levothyroxine Sodium (Synthroid Tab) 50 mcg DAILYBB PO 07/04/16 06:30 08/03/16 06:29 Torsemide (Demadex Tab) 100 mg QAM PO 07/04/16 08:00 08/03/16 07:59 Zolpidem Tartrate (Ambien Tab) 5 mg HS PRN PO 07/03/16 13:30 08/02/16 13:29 Clobetasol Propionate (Clobetasol Propionate Oint) 1 appln BID PRN EXT 07/03/16 13:30 08/02/16 13:29 Insulin Aspart (novoLOG ASPART) SLIDING SCALE G... ACHS SC 07/03/16 16:30 08/02/16 16:29 Glucose (Glucose 40% Gel) 15-30 GRAMS 15 GRAMS... UD PRN PO 07/03/16 13:45 08/02/16 13:44 Glucose (Glucose Chew Tab) 4-8 Tablets 4 Tabl... UD PRN PO 07/03/16 13:45 08/02/16 13:44 Dextrose (Dextrose 50% 50ML Syringe) 25-50ML OF 50% DW IV FOR... UD PRN IV 07/03/16 13:45 08/02/16 13:44 Glucagon (Glucagon Inj) 1 mg UD PRN SQ 07/03/16 13:45 08/02/16 13:44 Calcitriol 0.25 mcg 0.25 mcg MoWeFr@0900 PO 07/04/16 09:00 08/03/16 08:59 Sodium Chloride 1,000 ml @ 100 mls/hr Q10H ONCE IV 07/03/16 14:15 07/04/16 00:14 07/03/16 14:34 100 MLS/HR Vancomycin HCl/ Sodium Chloride (Vancomycin Inj/ Nss 500ml) 540 ml @ 200 mls/hr 1500 ONCE IV 07/03/16 15:00 07/03/16 17:41 07/03/16 15:15 200 MLS/HR Morphine Sulfate (MoRPHine SULFATE INJ) 6 mg Q4 PRN IV 07/03/16 16:00 07/17/16 15:59 07/03/16 16:23 6 MG Acetaminophen (Tylenol Tab) 500 mg Q6 PO 07/03/16 18:00 08/02/16 17:59 Vancomycin HCl (Consult) 1 ea UD PRN N/A 07/03/16 14:45 08/02/16 14:44 Heparin Sodium (Porcine) (Heparin Sq 5000 Unit/0.5ml) 5,000 unit Q12 SQ 07/03/16 21:00 08/02/16 20:59 Family History Cancer Diabetes mellitus Heart disease Hypertension Kidney disease Kidney stones Social History Smoking Status: Never Smoker Smokeless Tobacco Use: No Alcohol Use: none Drug Use: none Marital Status: Occupation: employed Review of Systems A complete review of systems was performed. Pertinent positives are noted above. All other systems are negative. Physical Exam Date Time Temp Pulse Resp B/P Pulse Ox O2 Delivery O2 Flow Rate FiO2 07/03/16 15:31 36.9 72 18 128/80 96 Room Air 07/03/16 15:27 Room Air 07/03/16 12:22 82 22 145/95 99 07/03/16 11:05 86 22 143/91 99 Room Air 07/03/16 10:19 94 Room Air 07/03/16 10:17 37.2 88 16 132/94 94 07/03/16 09:34 85 07/03/16 09:15 37.4 104 20 146/96 98 Room Air General Appearance: + mild distress, + obese Head: normocephalic, atraumatic Eyes: normal inspection, sclerae normal ENT: normal ENT inspection, pharynx normal Neck: supple, no JVD Respiratory/Chest: lungs clear, no respiratory distress, no accessory muscle use Cardiovascular: no gallop, no murmur, + tachycardia Abdomen/GI: + distended, + guarding, + pertinent finding (P catheter exit site with surrounding induration and erythema, no rebound tenderness, normal bowel sounds) Back: normal inspection, no CVA tenderness Extremities/Musculoskelatal: normal inspection, + pedal edema Neurologic/Psych: alert, oriented x 3 Skin: normal color Laboratory Results Last 24 Hours Test 07/03/16 08:35 07/03/16 10:04 07/03/16 10:17 07/03/16 10:50 White Blood Count 18.49 K/uL Red Blood Count 4.44 M/uL Hemoglobin 12.8 g/dL Hematocrit 37.6 % Mean Corpuscular Volume 84.7 fL Mean Corpuscular Hemoglobin 28.8 pg Mean Corpuscular Hemoglobin Concent 34.0 g/dl Platelet Count 251 K/uL Mean Platelet Volume 11.6 fL Neutrophils (%) (Auto) 91.7 % Lymphocytes (%) (Auto) 4.2 % Monocytes (%) (Auto) 3.1 % Eosinophils (%) (Auto) 0.5 % Basophils (%) (Auto) 0.1 % Neutrophils # (Auto) 16.96 K/uL Lymphocytes # (Auto) 0.77 K/uL Monocytes # (Auto) 0.57 K/uL Eosinophils # (Auto) 0.10 K/uL Basophils # (Auto) 0.02 K/uL RDW Standard Deviation 48.3 fL RDW Coefficient of Variation 15.7 % Immature Granulocyte % (Auto) 0.4 % Immature Granulocyte # (Auto) 0.07 K/uL Prothrombin Time 10.7 SECONDS Prothromb Time International Ratio 1.0 Activated Partial Thromboplast Time 29.5 SECONDS Partial Thromboplastin Ratio 1.1 Sodium Level 140 mmol/L Potassium Level 3.4 mmol/L Chloride Level 101 mmol/L Carbon Dioxide Level 25 mmol/L Anion Gap 14.0 mmol/L Blood Urea Nitrogen 67 mg/dl Creatinine 8.30 mg/dl Est Creatinine Clear Calc Drug Dose 13.2 ml/min Estimated GFR () 7.7 Estimated GFR (Non- 6.7 BUN/Creatinine Ratio 8.0 Random Glucose 152 mg/dl Calcium Level 9.6 mg/dl Total Bilirubin 0.8 mg/dl Aspartate Amino Transf (AST/SGOT) 17 U/L Alanine Aminotransferase (ALT/SGPT) 32 U/L Alkaline Phosphatase 94 U/L Total Protein 8.6 gm/dl Albumin 4.1 gm/dl Globulin 4.5 gm/dl Albumin/Globulin Ratio 0.9 Bedside Lactic Acid Venous 1.05 mmol/L Influenza Type A Antigen Neg for Influ A Influenza Type B Antigen Neg for Influ B Urine Color YELLOW Urine Appearance CLEAR Urine pH 6.0 Urine Specific [place] 1.019 Urine Protein 3+ Urine Glucose (UA) TRACE Urine Ketones NEG Urine Occult Blood 1+ Urine Nitrite NEG Urine Bilirubin NEG Urine Urobilinogen NEG Urine Leukocyte Esterase NEG Urine WBC (Auto) 1-5 /hpf Urine RBC (Auto) 0-4 /hpf Urine Hyaline Casts (Auto) 1-5 /lpf Urine Epithelial Cells (Auto) 20-30 /lpf Urine Bacteria (Auto) NEG Impression (1) Chronic kidney disease, stage V (2) FSGS (focal segmental glomerulosclerosis) (3) Peritoneal dialysis catheter dysfunction (4) Tunnel infection (5) Cellulitis Mr. Sesar Hernandez is a 50 year-old male with obesity, nonalcoholic steatohepatitis, diabetes mellitus, hypothyroidism, FSGS, arteriolosclerosis and CKD V following nephrectomy for a localized RCC. Buried PD catheter was placed by Dr. Lozoya without complications on October 13, 2015. In the setting of increasing symptoms of advanced renal failure, catheter was externalized on June 14 2015. Unfortunately, catheter has not drained appropriately presumably due to an omental sheath. Mr. Hernandez was scheduled for catheter revision next week. Unfortunately, he presented to the ED at [facility] today with significant abdominal pain, nausea, anorexia and fevers. He has a tunnel tract infection without exudate or drainage from catheter. Plan of care was discussed with Dr. Hernandez. Recommendations 1. Blood cultures pending 2. Culture any drainage from exit site 3. Exit site care per protocol 4. Suggest expanded gram negative coverage such as cipro (400 IV q 24) or cefepime (2 gram now followed by 250 mg Q 24 hr) 5. CT of the abdomen 6. Hold torsemide 7. Stop saline infusion after 1 liter 8. No emergent indication for dialysis 9. Document I/O and repeat metabolic profile tomorrow AM 10. Medications appropriately dosed for renal function 11. No emergent indication for catheter removal at this time
[2016-07-03] MEDS: ACETAMINOPHEN 500 MG TAB PO SCH (17:35)
[2016-07-03] MEDS ORDERED: CEFEPIME IV 2,000 MG in DEXTROSE 5% 100ML 100 ML IV ONE (17:45)
--- NOTE | 2016-07-03 18:01 | DIAGNOSTIC IMAGING REPORT ---
ABDOMEN AND PELVIS CT WITHOUT CONTRAST CT DOSE: 1602.22 mGy.cm HISTORY: Peritoneal dialysis catheter infection TECHNIQUE: Multiaxial CT images of the abdomen and pelvis were performed without contrast. COMPARISON STUDY: Abdomen and pelvis CT 06/22/2016. FINDINGS: The lung bases are clear. No suspicious lytic or blastic osseous lesions. Hepatic steatosis. The unenhanced gallbladder, spleen, adrenal glands, right kidney, and pancreas are unremarkable. The left kidney is surgically absent. Stable small scarlike densities at the nephrectomy bed. No retroperitoneal lymphadenopathy. Normal bladder. Suboptimal evaluation for bowel pathology due to the lack of intravenous and oral contrast. However, there is no definite bowel wall thickening or obstruction. A few colonic diverticula. Normal appendix. There is a right lower quadrant peritoneal dialysis catheter which enters the midline of the lower anterior abdominal wall and extends into the left midabdomen. There is mild inflammatory change surrounding the distal end of the catheter within the left lower quadrant best seen on image 64. There is also mild fat stranding and skin thickening within the right lower quadrant anterior abdominal wall at the catheter insertion. This is consistent with the patient's history of infected peritoneal dialysis catheter. There are no loculated fluid collections to suggest an abscess. IMPRESSION: There is a peritoneal dialysis catheter as described above. There is mild inflammatory change surrounding the distal end of the catheter within the left lower quadrant. There is also mild fat stranding and skin thickening within the right lower quadrant anterior abdominal wall at the catheter insertion. This is consistent with the patient's history of infected peritoneal dialysis catheter. There are no loculated fluid collections to suggest an abscess. Electronically signed by: Harish Espino M.D. 07/03/2016 5:59 PM Dictated Date/Time: 07/03/2016 5:54 PM
[2016-07-03] MEDS ORDERED: NURSING DECISION MEDICATION ORDER SCH (20:45)
[2016-07-03] MEDS: ATORVASTATIN 20 MG TAB PO SCH (21:49)
[2016-07-03] MEDS: AMLODIPINE BESYLATE 5 MG TAB PO SCH (21:49)
[2016-07-03] MEDS: ASPIRIN 325 MG ECTAB PO SCH (21:50)
[2016-07-03] MEDS: HEPARIN SOD 5000 UNIT/0.5 ML CARP SQ SCH (21:52)
[2016-07-04] VITALS: O2SAT 93
[2016-07-04] MEDS ORDERED: COUGH DROP (SUGAR FREE) LOZ 24 LOZ/1 BOX ONE (00:06)
[2016-07-04] MEDS: ACETAMINOPHEN 500 MG TAB PO SCH ×4 (00:26→17:48)
[2016-07-04] MEDS: MoRPHine SULFATE 10 MG/ML CARP/VIAL IV PRN ×4 (00:33→22:59)
[2016-07-04 01:30] VITALS: BP 134/85; PULSE 95; TEMP 36.9; O2SAT 93
[2016-07-04] MEDS ORDERED: NURSING DECISION MEDICATION ORDER SCH (03:00)
[2016-07-04] MEDS ORDERED: NURSING VERBAL MED ORDER ONE ×2 (03:00→20:00)
[2016-07-04] MEDS ORDERED: HYDROmorphone INJ 0.5 MG/0.5 ML SYR ONE (03:03)
[2016-07-04] MEDS ORDERED: HYDROmorphone INJ 0.5 MG/0.5 ML SYR IV STA (03:05)
[2016-07-04] MEDS: ZOLPIDEM TARTRATE 5 MG TAB PO PRN ×3 (03:10→21:09)
[2016-07-04] MEDS ORDERED: COUGH DROP (SUGAR FREE) LOZ 24 LOZ/1 BOX PO PRN (03:15)
[2016-07-04] MEDS: INSULIN ASPART 100 UNITS/ML 3 ML PEN SC SCH ×5 (06:00→20:59)
[2016-07-04] MEDS: LEVOTHYROXINE 50 MCG TAB PO SCH (06:56)
[2016-07-04 07:32] LABS: HEMATOCRIT 33.8 % (42-52); MEAN CELL VOLUME 88.7 fL (80-100); MEAN CORPUSCULAR HEMOGLOBIN 29.1 pg (25-34); MEAN CORPUSCULAR HGB CONC 32.8 g/dl (32-36); MEAN PLATELET VOLUME 11.5 fL (7.4-10.4); PLATELET COUNT 187 K/uL (130-400); RED BLOOD COUNT 3.81 M/uL (4.7-6.1); WHITE BLOOD COUNT 12.41 K/uL (4.8-10.8)
[2016-07-04] MEDS: CALCITRIOL 0.25 MCG CAP PO SCH (07:46)
[2016-07-04] MEDS: CIPROFLOXACIN / D5W 400 MG in PREMIXED IN D5W 200 ML IV SCH (07:46)
[2016-07-04] MEDS: HEPARIN SOD 5000 UNIT/0.5 ML CARP SQ SCH ×2 (07:55→20:55)
[2016-07-04] MEDS ORDERED: TORSEMIDE 20 MG TAB PO SCH (08:00)
[2016-07-04 08:15] LABS: BUN/CREATININE RATIO 7.1 (10-20); CALCIUM 8.1 mg/dl (8.5-10.1); CREATININE 8.3 mg/dl (0.60-1.40); POTASSIUM 3.6 mmol/L (3.5-5.1)
[2016-07-04 08:23] VITALS: BP 127/84; PULSE 77; TEMP 36.6; O2SAT 91
[2016-07-04] MEDS: HYDROmorphone INJ 1 MG/ML SYR IV PRN (09:52)
--- NOTE | 2016-07-04 11:19 | Medical Student: [facility] ---
Med Student Progress Note Date of Service Jul 04, 2016. Subjective Pt evaluation today including: conversation w/ patient Voiding: no voiding problems Mr. Hernandez is a 50 year old male with past medical history significant for chronic kidney disease, history of renal cell carcinoma, type 2 diabetes, hypothyroidism who is being treated for cellulitis. Per RN no acute events overnight. Patient states he is feeling better today. He states pain is 5/10 with morphine. Notes pain is localized at incision of peritoneal dialysis catheter. Describes pain as nonradiating and sharp. Reports cramps have resolved. He notes some sweats early this AM. Took Ambien at 4 AM, which did not help. Notes nose bleed this AM, which stopped bleeding within few minutes with pressure. Notes some coughing up blood since. States appetite is decreased and was not able to sleep during night. Notes making urine. Denies fever, chills , nausea, vomiting, chest pain, palpitations, difficulty breathing. Review of Systems Constitutional: + sweats, No chills, No fever Respiratory: + hemoptysis, No cough, No shortness of breath, No wheezing Cardiac: No chest pain, No edema, No palpitations Abdomen: No diarrhea, No nausea, No pain, No vomiting Musculoskeletal: No calf pain, No swelling Heme: No abnormal bleeding/bruising Objective Vital Signs Date Time Temp Pulse Resp B/P Pulse Ox O2 Delivery O2 Flow Rate FiO2 07/04/16 08:23 36.6 77 17 127/84 91 Room Air 07/04/16 08:00 Room Air 07/04/16 01:30 36.9 95 18 134/85 93 Room Air 07/04/16 00:00 93 Room Air 07/03/16 16:00 Room Air 07/03/16 15:31 36.9 72 18 128/80 96 Room Air 07/03/16 15:27 36.8 92 18 144/98 98 Room Air 07/03/16 12:22 82 22 145/95 99 Physical Exam General Appearance: WD/WN, + mild distress Neck: supple, no adenopathy, no carotid bruits Respiratory/Chest: chest non-tender, lungs clear, normal breath sounds, no respiratory distress, no accessory muscle use Cardiovascular: regular rate, rhythm, no edema, no gallop, no murmur Abdomen: normal bowel sounds, + pertinent finding (Right lower quadrant incision for PD catheter. Swollen, erythamatous, tender around tube. Slightly expanded around marker margins drawn yetserday. No rebound tenderness) Laboratory Results Last 24 Hours Test 07/03/16 18:00 07/04/16 00:29 07/04/16 06:45 07/04/16 07:00 Bedside Glucose 92 mg/dl 93 mg/dl 89 mg/dl White Blood Count 12.41 K/uL Red Blood Count 3.81 M/uL Hemoglobin 11.1 g/dL Hematocrit 33.8 % Mean Corpuscular Volume 88.7 fL Mean Corpuscular Hemoglobin 29.1 pg Mean Corpuscular Hemoglobin Concent 32.8 g/dl RDW Standard Deviation 51.7 fL RDW Coefficient of Variation 16.1 % Platelet Count 187 K/uL Mean Platelet Volume 11.5 fL Sodium Level 141 mmol/L Potassium Level 3.6 mmol/L Chloride Level 105 mmol/L Carbon Dioxide Level 25 mmol/L Anion Gap 11.0 mmol/L Blood Urea Nitrogen 59 mg/dl Creatinine 8.30 mg/dl Est Creatinine Clear Calc Drug Dose 13.2 ml/min Estimated GFR () 7.7 Estimated GFR (Non- 6.7 BUN/Creatinine Ratio 7.1 Random Glucose 86 mg/dl Calcium Level 8.1 mg/dl Random Vancomycin Level 20.8 mcg/ml Medications Current Inpatient Medications Medications (Trade) Dose Ordered Sig/Leland Route Start Time Stop Time Status Last Admin Dose Admin Miscellaneous (Iv Fluids Completed) 1 ea PRN PRN N/A 07/03/16 13:00 07/03/17 12:59 Amlodipine Besylate (Norvasc Tab) 10 mg HS PO 07/03/16 22:00 08/02/16 21:59 07/03/16 21:49 10 MG Aspirin (Ecotrin Tab) 325 mg HS PO 07/03/16 22:00 08/02/16 21:59 07/03/16 21:50 325 MG Atorvastatin Calcium (Lipitor Tab) 20 mg HS PO 07/03/16 22:00 08/02/16 21:59 Ergocalciferol (Vitamin D Cap) 50,000 interunit Q7D PO 07/08/16 08:00 08/07/16 07:59 Levothyroxine Sodium (Synthroid Tab) 50 mcg DAILYBB PO 07/04/16 06:30 08/03/16 06:29 07/04/16 06:56 50 MCG Zolpidem Tartrate (Ambien Tab) 5 mg HS PRN PO 07/03/16 13:30 08/02/16 13:29 07/04/16 03:10 5 MG Clobetasol Propionate (Clobetasol Propionate Oint) 1 appln BID PRN EXT 07/03/16 13:30 08/02/16 13:29 Glucose (Glucose 40% Gel) 15-30 GRAMS 15 GRAMS... UD PRN PO 07/03/16 13:45 08/02/16 13:44 Glucose (Glucose Chew Tab) 4-8 Tablets 4 Tabl... UD PRN PO 07/03/16 13:45 08/02/16 13:44 Dextrose (Dextrose 50% 50ML Syringe) 25-50ML OF 50% DW IV FOR... UD PRN IV 07/03/16 13:45 08/02/16 13:44 Glucagon (Glucagon Inj) 1 mg UD PRN SQ 07/03/16 13:45 08/02/16 13:44 Calcitriol (Rocaltrol Cap) 0.25 mcg MoWeFr@0900 PO 07/04/16 09:00 08/03/16 08:59 07/04/16 07:46 0.25 MCG Morphine Sulfate (MoRPHine SULFATE INJ) 6 mg Q4 PRN IV 07/03/16 16:00 07/17/16 15:59 07/04/16 00:33 6 MG Acetaminophen (Tylenol Tab) 500 mg Q6 PO 07/03/16 18:00 08/02/16 17:59 07/04/16 06:55 500 MG Vancomycin HCl (Consult) 1 ea UD PRN N/A 07/03/16 14:45 08/02/16 14:44 Heparin Sodium (Porcine) (Heparin Sq 5000 Unit/0.5ml) 5,000 unit Q12 SQ 07/03/16 21:00 08/02/16 20:59 07/04/16 07:55 5,000 UNIT Insulin Aspart (novoLOG ASPART) SLIDING SCALE G... Q6 SC 07/04/16 00:00 08/03/16 00:00 Menthol 1 kaushik 1 kaushik PRN PRN PO 07/04/16 03:15 08/03/16 03:14 Ciprofloxacin/ Dextrose 400 mg/ Prmx 200 ml @ 100 mls/hr Q24H IV 07/04/16 08:00 07/14/16 07:14 07/04/16 07:46 100 MLS/HR Cefepime HCl/ Dextrose (Maxipime IV/D5 100ml) 102.825 ml @ 200 mls/ hr Q24H IV 07/04/16 18:00 07/12/16 18:31 Hydromorphone HCl 1 mg 1 mg Q4 PRN IV 07/04/16 09:30 07/18/16 09:29 07/04/16 09:52 1 MG Doxycycline Hyclate/Dextrose (Vibramycin IV/ D5 100ml) 110 ml @ 50 mls/hr BID@1000,2200 IV 07/04/16 11:00 07/14/16 10:59 Assessment and Plan Assessment and Plan: 1. Cellulitis vs. Tunnel Tract infection - CT did not reveal abscess. No drainage or fever. Borderline tachycardic at 95. WBC dropped from18.49 to 12.41 on antibiotics. Pain control improved with morphine. - Day 2 antibiotics. Continue Doxycycline, cefepime, ciprofloxacin IV. - Obtain culture if drainage develops - Continue morphine for pain - Consult vascular surgery for potential removal of catheter 2. Chronic kidney disease, stage IV - Last values in May revealed creatinine of 7.4, BUN 7.4. Consistently trending upward since nephrectomy. 350 ml output over past 24 hours. - Continue to hold torsemide - Continue I/O, daily weights - Continue to monitor levels 3. DM type 2 - Last hemoglobin A1C was 10.7 in December 2015. Poorly controlled. - Repeat A1C - Continue NovoLog - Continue to monitor blood sugars 4. HTN- Blood pressures have decreased to 130s/80s. High yesterday in 140-150s/ 90s likely due to pain. - Continue Amlodipine 10 mg daily - Continue to monitor pressures 5. Hypothyroidism - Continue Synthroid 50 mcg daily 6. DVT prophylaxis - Heparin 5000 units SQ q 12 - Platelets dropped from 187 to 251 today, continue to monitor
[2016-07-04] MEDS: DOXYCYCLINE IV 100 MG in DEXTROSE 5% 100ML 100 ML IV SCH ×2 (11:32→21:09)
--- NOTE | 2016-07-04 12:01 | Nephrology Progress Note ---
Nephrology Progress Note Date of Service Jul 04, 2016. Chief Complaint ESRD; PD catheter malfunction Subjective No acute events overnight. Sesar is feeling very tired this morning. He expressed frustration. Fevers have resolved. He denies chills. Appetite is poor and he has nausea. Pain control is improving but catheter remains very tender. He denies constipation. He denies shortness of breath. He is willing to consider hemodialysis if indicated prior to transitioning to PD. Review of Systems A complete review of systems was performed. Pertinent positives are noted above. All other systems are negative. Vital Signs Last 8 Hrs Date Time Temp Pulse Resp B/P Pulse Ox O2 Delivery O2 Flow Rate FiO2 07/04/16 08:23 36.6 77 17 127/84 91 Room Air 07/04/16 08:00 Room Air I & O 24-Hour Column 07/04/16 08:00 Intake Total 1334 ml Output Total 700 ml Balance 634 ml Last Recorded Weight Weight (Kilograms): 107.400 Physical Exam General Appearance: no apparent distress, + obese Head: normocephalic, atraumatic Eyes: normal inspection, sclerae normal ENT: normal ENT inspection, pharynx normal Neck: supple, no JVD Respiratory/Chest: lungs clear, no respiratory distress, no accessory muscle use Cardiovascular: regular rate, rhythm, no gallop, no murmur Back: normal inspection, no CVA tenderness Abdomen/GI: + distended, + guarding, + pertinent finding (no rebound, extension of cellulitis noted) Extremities/Musculoskelatal: normal inspection, + pedal edema Neurologic/Psych: alert, oriented x 3 Family History Cancer Diabetes mellitus Heart disease Hypertension Kidney disease Kidney stones Social History Smoking Status: Never smoker Smokeless Tobacco Use: No Alcohol Use: none Drug Use: none Marital Status: Occupation: employed Laboratory Results Past 24 Hours 07/04/16 07:00 07/04/16 07:00 Test 07/03/16 18:00 07/04/16 00:29 07/04/16 06:45 07/04/16 07:00 Bedside Glucose 92 mg/dl (70-99) 93 mg/dl (70-99) 89 mg/dl (70-99) Red Blood Count 3.81 M/uL (4.7-6.1) Mean Corpuscular Volume 88.7 fL (80-100) Mean Corpuscular Hemoglobin 29.1 pg (25-34) Mean Corpuscular Hemoglobin Concent 32.8 g/dl (32-36) RDW Standard Deviation 51.7 fL (36.4-46.3) RDW Coefficient of Variation 16.1 % (11.5-14.5) Mean Platelet Volume 11.5 fL (7.4-10.4) Anion Gap 11.0 mmol/L (3-11) Est Creatinine Clear Calc Drug Dose 13.2 ml/min Estimated GFR () 7.7 Estimated GFR (Non- 6.7 BUN/Creatinine Ratio 7.1 (10-20) Calcium Level 8.1 mg/dl (8.5-10.1) Random Vancomycin Level 20.8 mcg/ml Test 07/04/16 11:30 Bedside Glucose 98 mg/dl (70-99) Allergies Coded Allergies: Penicillins (Verified Allergy, Mild, RASH, HIVES, ITCHING, 07/03/16) Medications Current Inpatient Medications Medications (Trade) Dose Ordered Sig/Leland Route Start Time Stop Time Status Last Admin Dose Admin Miscellaneous (Iv Fluids Completed) 1 ea PRN PRN N/A 07/03/16 13:00 07/03/17 12:59 Amlodipine Besylate (Norvasc Tab) 10 mg HS PO 07/03/16 22:00 08/02/16 21:59 07/03/16 21:49 10 MG Aspirin (Ecotrin Tab) 325 mg HS PO 07/03/16 22:00 08/02/16 21:59 07/03/16 21:50 325 MG Atorvastatin Calcium (Lipitor Tab) 20 mg HS PO 07/03/16 22:00 08/02/16 21:59 Ergocalciferol (Vitamin D Cap) 50,000 interunit Q7D PO 07/08/16 08:00 08/07/16 07:59 Levothyroxine Sodium (Synthroid Tab) 50 mcg DAILYBB PO 07/04/16 06:30 08/03/16 06:29 07/04/16 06:56 50 MCG Zolpidem Tartrate (Ambien Tab) 5 mg HS PRN PO 07/03/16 13:30 08/02/16 13:29 07/04/16 03:10 5 MG Clobetasol Propionate (Clobetasol Propionate Oint) 1 appln BID PRN EXT 07/03/16 13:30 08/02/16 13:29 Glucose (Glucose 40% Gel) 15-30 GRAMS 15 GRAMS... UD PRN PO 07/03/16 13:45 08/02/16 13:44 Glucose (Glucose Chew Tab) 4-8 Tablets 4 Tabl... UD PRN PO 07/03/16 13:45 08/02/16 13:44 Dextrose (Dextrose 50% 50ML Syringe) 25-50ML OF 50% DW IV FOR... UD PRN IV 07/03/16 13:45 08/02/16 13:44 Glucagon (Glucagon Inj) 1 mg UD PRN SQ 07/03/16 13:45 08/02/16 13:44 Calcitriol (Rocaltrol Cap) 0.25 mcg MoWeFr@0900 PO 07/04/16 09:00 08/03/16 08:59 07/04/16 07:46 0.25 MCG Morphine Sulfate (MoRPHine SULFATE INJ) 6 mg Q4 PRN IV 07/03/16 16:00 07/17/16 15:59 07/04/16 00:33 6 MG Acetaminophen (Tylenol Tab) 500 mg Q6 PO 07/03/16 18:00 08/02/16 17:59 07/04/16 11:32 500 MG Vancomycin HCl (Consult) 1 ea UD PRN N/A 07/03/16 14:45 08/02/16 14:44 Heparin Sodium (Porcine) (Heparin Sq 5000 Unit/0.5ml) 5,000 unit Q12 SQ 07/03/16 21:00 08/02/16 20:59 07/04/16 07:55 5,000 UNIT Insulin Aspart (novoLOG ASPART) SLIDING SCALE G... Q6 SC 07/04/16 00:00 08/03/16 00:00 Menthol 1 kaushik 1 kaushik PRN PRN PO 07/04/16 03:15 08/03/16 03:14 Ciprofloxacin/ Dextrose 400 mg/ Prmx 200 ml @ 100 mls/hr Q24H IV 07/04/16 08:00 07/14/16 07:14 07/04/16 07:46 100 MLS/HR Cefepime HCl/ Dextrose (Maxipime IV/D5 100ml) 102.825 ml @ 200 mls/ hr Q24H IV 07/04/16 18:00 07/12/16 18:31 Hydromorphone HCl 1 mg 1 mg Q4 PRN IV 07/04/16 09:30 07/18/16 09:29 07/04/16 09:52 1 MG Doxycycline Hyclate/Dextrose (Vibramycin IV/ D5 100ml) 110 ml @ 50 mls/hr BID@1000,2200 IV 07/04/16 11:00 07/14/16 10:59 07/04/16 11:32 50 MLS/HR Impression (1) Chronic kidney disease, stage V (2) FSGS (focal segmental glomerulosclerosis) (3) Peritoneal dialysis catheter dysfunction (4) Tunnel infection (5) Cellulitis Mr. Sesar Hernandez is a 50 year-old male with obesity, nonalcoholic steatohepatitis, diabetes mellitus, hypothyroidism, FSGS, arteriolosclerosis and CKD V following nephrectomy for a localized RCC. Buried PD catheter was placed by Dr. Lozoya without complications on October 13, 2015. In the setting of increasing symptoms of advanced renal failure, catheter was externalized on June 14 2015. Unfortunately, catheter has not drained appropriately presumably due to an omental sheath and movement from pelvis to abdomen. Unfortunately, he presented to the ED at [facility] on 07/03/16 with abdominal pain, nausea, anorexia and fevers. He has a tunnel tract infection without exudate or drainage from catheter. CT scan did not reveal an abscess Plan of care was discussed with Dr. Hernandez as well as Dr. Lozoya this morning. Recommendations -- Blood cultures pending -- Daptomycin or doxycycline would be acceptable from a renal standpoint -- Exit site care per protocol with triple antibiotic to exit site daily -- Suggest expanded gram negative coverage such as cipro (400 IV q 24) or cefepime (2 gram now followed by 250 mg Q 24 hr) -- Continue to hold diuretics and IVF -- No emergent indication for dialysis but Sesar is suffering from his symptom burden. Sesar would consider permcath placement for HD. If cultures are negative in next 24-48 hour and symptoms persist, I would ask vascular to place a dialysis permcath. Will continue to re evaluate. -- Dr. Lozoya suggested that PD catheter could be removed on Saturday - appreciate consultation -- Document I/O and repeat metabolic profile tomorrow AM -- Medications appropriately dosed for renal function
--- NOTE | 2016-07-04 13:33 | Family Medicine Progress Note ---
Progress Note Date of Service Jul 04, 2016. Subjective Pt evaluation today including: conversation w/ patient, physical exam, chart review, lab review, review of studies, conversation w/ managed services sales consultant, review of inpatient medication list Pain: improved control PO Intake: WNL States that the pain has been under relatively good control, Requesting meals this morning states he has not had any "cramping" episodes Constitutional: No fever Eyes: No worsening of vision ENT: No hearing loss Respiratory: No cough, No dyspnea on exertion, No shortness of breath, No sputum, No wheezing Cardiovascular: No chest pain Abdomen: + pain, No constipation, No diarrhea, No nausea, No vomiting Musculoskeletal: No joint pain, No muscle pain Neurologic: No balance problems, No weakness Endo: No fatigue Medications Medications Administered Medications (Trade) Dose Ordered Sig/Leland Route Start Time Stop Time Status Last Admin Dose Admin Morphine Sulfate (MoRPHine SULFATE INJ) 4 mg NOW STAT IV 07/03/16 12:36 07/03/16 12:58 DC 07/03/16 13:28 4 MG Amlodipine Besylate (Norvasc Tab) 10 mg HS PO 07/03/16 22:00 08/02/16 21:59 07/03/16 21:49 10 MG Aspirin (Ecotrin Tab) 325 mg HS PO 07/03/16 22:00 08/02/16 21:59 07/03/16 21:50 325 MG Levothyroxine Sodium (Synthroid Tab) 50 mcg DAILYBB PO 07/04/16 06:30 08/03/16 06:29 07/04/16 06:56 50 MCG Zolpidem Tartrate (Ambien Tab) 5 mg HS PRN PO 07/03/16 13:30 08/02/16 13:29 07/04/16 03:10 5 MG Calcitriol 0.25 mcg 0.25 mcg MoWeFr@0900 PO 07/04/16 09:00 08/03/16 08:59 07/04/16 07:46 0.25 MCG Sodium Chloride 1,000 ml @ 100 mls/hr Q10H ONCE IV 07/03/16 14:15 07/04/16 00:14 DC 07/03/16 14:34 100 MLS/HR Vancomycin HCl/ Sodium Chloride (Vancomycin Inj/ Nss 500ml) 540 ml @ 200 mls/hr 1500 ONCE IV 07/03/16 15:00 07/03/16 17:41 DC 07/03/16 15:15 200 MLS/HR Morphine Sulfate (MoRPHine SULFATE INJ) 6 mg Q4 PRN IV 07/03/16 16:00 07/17/16 15:59 07/04/16 00:33 6 MG Acetaminophen (Tylenol Tab) 500 mg Q6 PO 07/03/16 18:00 08/02/16 17:59 07/04/16 11:32 500 MG Heparin Sodium (Porcine) 5000 unit 5,000 unit Q12 SQ 07/03/16 21:00 08/02/16 20:59 07/04/16 07:55 5,000 UNIT Cefepime HCl/ Dextrose (Maxipime IV/D5 100ml) 112.5 ml @ 200 mls/hr NOW ONCE IV 07/03/16 17:45 07/03/16 18:18 DC 07/03/16 18:18 200 MLS/HR Menthol (Nice Anne) 24 anne STK-MED ONCE .ROUTE 07/04/16 00:06 07/04/16 00:09 DC 07/04/16 00:26 24 ANNE Hydromorphone HCl 0.5 mg 0.5 mg STK-MED ONCE .ROUTE 07/04/16 03:03 07/04/16 03:07 DC 07/04/16 03:09 0.5 MG Ciprofloxacin/ Dextrose/Prmx (Cipro / D5w/ Premixed D5W) 200 ml @ 100 mls/hr Q24H IV 07/04/16 08:00 07/14/16 07:14 07/04/16 07:46 100 MLS/HR Hydromorphone HCl 1 mg 1 mg Q4 PRN IV 07/04/16 09:30 07/18/16 09:29 07/04/16 09:52 1 MG Doxycycline Hyclate/Dextrose (Vibramycin IV/ D5 100ml) 110 ml @ 50 mls/hr BID@1000,2200 IV 07/04/16 11:00 07/14/16 10:59 07/04/16 11:32 50 MLS/HR Objective Vital Signs Date Time Temp Pulse Resp B/P Pulse Ox O2 Delivery O2 Flow Rate FiO2 07/04/16 08:23 36.6 77 17 127/84 91 Room Air 07/04/16 08:00 Room Air 07/04/16 01:30 36.9 95 18 134/85 93 Room Air 07/04/16 00:00 93 Room Air 07/03/16 16:00 Room Air 07/03/16 15:31 36.9 72 18 128/80 96 Room Air 07/03/16 15:27 36.8 92 18 144/98 98 Room Air Physical Exam General Appearance: no apparent distress Eyes: normal inspection ENT: normal ENT inspection Neck: supple Respiratory/Chest: normal breath sounds, no respiratory distress, no accessory muscle use, + decreased breath sounds (bilat bases) Cardiovascular: regular rate, rhythm, no murmur Abdomen: normal bowel sounds, + tenderness Extremities: no pedal edema, no calf tenderness Neurologic/Psychiatric: alert, normal mood/affect, oriented x 3 Skin: + pertinent finding (cellulitis has moved beyond the marked area but not as tender as yesterday) Laboratory Results Results Past 24 Hours Test 07/03/16 18:00 07/04/16 00:29 07/04/16 06:45 07/04/16 07:00 Range/Units Bedside Glucose 92 93 89 70-99 mg/dl White Blood Count 12.41 4.8-10.8 K/uL Red Blood Count 3.81 4.7-6.1 M/uL Hemoglobin 11.1 14.0-18.0 g/dL Hematocrit 33.8 42-52 % Mean Corpuscular Volume 88.7 80-100 fL Mean Corpuscular Hemoglobin 29.1 25-34 pg Mean Corpuscular Hemoglobin Concent 32.8 32-36 g/dl RDW Standard Deviation 51.7 36.4-46.3 fL RDW Coefficient of Variation 16.1 11.5-14.5 % Platelet Count 187 130-400 K/uL Mean Platelet Volume 11.5 7.4-10.4 fL Sodium Level 141 136-145 mmol/L Potassium Level 3.6 3.5-5.1 mmol/L Chloride Level 105 98-107 mmol/L Carbon Dioxide Level 25 21-32 mmol/L Anion Gap 11.0 3-11 mmol/L Blood Urea Nitrogen 59 7-18 mg/dl Creatinine 8.30 0.60-1.40 mg/dl Est Creatinine Clear Calc Drug Dose 13.2 ml/min Estimated GFR () 7.7 Estimated GFR (Non- 6.7 BUN/Creatinine Ratio 7.1 10-20 Random Glucose 86 70-99 mg/dl Calcium Level 8.1 8.5-10.1 mg/dl Random Vancomycin Level 20.8 mcg/ml Test 07/04/16 11:30 Range/Units Bedside Glucose 98 70-99 mg/dl Assessment and Plan This is a 50 yo m with cellulitis surrounding his PD catheter site. There is concern for MRSA so vanco will be the initial choice and will be renally dosed. Cellulitis surrounding PD catheter; erythema, leukocytosis - Cefepime, Cipro and Doxy - follow CBC - 100 NSS @100cc/h x 1- no more IVF - cellulitis has been marked, reassess daily - slightly beyond marked area but clinically improving - morphine 6 mg q 4 h - Dilaudid 1 mg q 4 h - Dr Barreto did touch base with Dr Lozoya, potentially remove PD cath sat - CT was negative for abscess CKD requiring peritoneal dialysis - assess volume status accordingly - I&O and daily weights - nephro consult - appreciate input - will hold torsemide DMII - insulin ISS - BSG ac hs HTN - continue amlodipine Hypothyroidism - continue levothyroxine DVt prophylaxis - heparin q 12 Resident Physician Supervision Note: I interviewed and examined the patient. Discussed with Dr. Ponce and agree with findings and plan as documented in the note. Any exceptions or clarifications are listed here: None Documented By: Genaro Hernandez feeling better w pain, no further fevers. improved overall area of redness did expand a little d/w nephrology vitals noted see EMR abdomen - PD cath site w surrounding erythema sl larger than yesterday's outlined area less tender no areas of fluctuance no exudate from drainage site. a/p abdominal wall cellulitis w sepsis - sepsis improved. area of erythema slightly worse but less tender - appears likely improving. change to doxy for MRSA coverage after d/w nephrology (local antibiogram shows good anticipated response); gram neg coverage (cipro and cefepime) as per nephro. for PD cath removal on 07/06 appears improving continue ongoing inpt treatment Continued [facility] stay due to: multiple IV medications needed Discharge planning: uncertain
--- NOTE | 2016-07-04 13:59 | Surgery Consultation ---
Consultation Date of Service Jul 04, 2016. Chief Complaint infected CAPD catheter History of Present Illness The patient is a 50 year old male with ESRD, who previously had buried CAPD catheter placed in 09/28, then underwent externalization [address] Lozoya , seen today at nephrology request regarding infected CAPD catheter. Pt known to vascular service. Pt states he was doing fine for about 2 wks postop, then developed more pain/sensitivity at surgical site, fever of 101F, chills, N/V, malaise last weekend. States is feeling somewhat improved since arrival at [facility] , however, still with pain at catheter site, redness, swelling, and malaise. Denies [place], chest pain, SOB, cough, N/V presently, rest pain, claudication, other complaints. CAPD catheter has not been functional since externalization d /t migration to [facility] and had been scheduled outpt for laparoscopic repositioning. Vitals Vital Signs Past 12 Hours Date Time Temp Pulse Resp B/P Pulse Ox O2 Delivery O2 Flow Rate FiO2 07/04/16 08:23 36.6 77 17 127/84 91 Room Air 07/04/16 08:00 Room Air Allergies Coded Allergies: Penicillins (Verified Allergy, Mild, RASH, HIVES, ITCHING, 07/03/16) Home Medications Scheduled Amlodipine (Norvasc), 10 MG PO HS Aspirin (Aspirin Ec), 325 MG PO HS Atorvastatin (Atorvastatin Calcium), 1 TAB PO HS Calcitriol (Rocaltrol Cap), 0.25 MCG PO Q2D Ergocalciferol (Vitamin D 13846 Unit), 50,000 UNIT PO WK Insulin Glargine (Lantus), 24 UNITS SC HS Insulin Glulisine (Apidra Solostar), 4 UNITS SC TIDM Levothyroxine Sodium (Levothyroxine Sodium), 1 TAB PO QAM Torsemide (Demadex), 100 MG PO QAM Scheduled PRN Acetaminophen (Tylenol), 500 MG PO Q6 PRN for Pain Clobetasol Propionate 0.05% (Temovate 0.05%), 1 APPLN EXT BID PRN for PRN Zolpidem Tartrate (Ambien), 5 MG PO HS PRN for Insomnia Problem List Medical Problems: (1) Abdominal pain (2) Benign hypertension (3) Cellulitis (4) Chronic kidney disease, stage V (5) Fever (6) FSGS (focal segmental glomerulosclerosis) (7) Hyperglycemia (8) Hypothyroidism (9) Leukocytosis (10) Peritoneal dialysis catheter dysfunction (11) R index finger surgery (12) Tunnel infection (13) Vision loss Surgical / Medical History Hx Cardiac Surgery: Yes (HEART CATH, NO STENT) Hx Abdominal Surgery: Yes (PERITONEAL DIALYSIS CATHETER PLACEMENT) Hx Cancer Surgery: Yes Hx Thoracic Surgery: No Hx Orthopedic: No Hx Urinary Tract Surgery: Yes (LEFT NEPHRECTOMY) Past Medical/Surgical History: Diabetes, High Cholesterol, Hypertension, Kidney Disease, Thyroid Disease Family History Cancer Diabetes mellitus Heart disease Hypertension Kidney disease Kidney stones Social History Smoking Status: Never Smoker Hx Tobacco Use In Past Year?: No Hx Alcohol Use - Type & Amnt: No Hx Substance Use -Type & Amnt: No Review of Systems Constitutional: + malaise, No chills Skin: + change in color Eyes: No visual changes ENMT: No sore throat Respiratory: No [place], No cough, No hemoptysis, No short of breath Cardiovascular: No chest pain, No edema, No intermittent claudication, No palpitations, No syncope Gastrointestinal: + abdominal pain, No nausea, No vomiting Neurologic: No dizziness, No headache, No lethargy, No numbness, No tingling Physical Exam Constitutional: General Apperance: well-nourished, well-developed, obese Level of Distress: NAD, acutely ill Psychiatric: Mental Status: active & alert, normal mood, normal affect Orientation: oriented except where noted, to time, to place, to person Memory: recent memory normal, remote memory normal Head: normocephalic, atraumatic Eyes: EOM: EOMI ENMT: normal ENT inspection, hearing grossly normal Neck: supple, trachea midline Lungs: Respiratory effort: no dyspnea Auscultation: no wheezing, no rales/crackles, no rhonchi, decreased breath sounds Cardiovascular: Apical Impulse: not displaced Heart Auscultation: RRR, no rubs, no gallops Peripheral Pulses: Pulses: full and equal, in all extremities except if noted Bruits: none appreciated Carotid Pulse: normal on the left, normal on the right Brachial Pulses: normal on the left, normal on the right Radial Pulse: normal on the left, normal on the right Femoral Pulse: normal on the left, normal on the right Posterior Tibialis Pulse: decreased on the left, decreased on the right Dorsalis Pedis Pulse: decreased on the left, decreased on the right Abdomen: Bowel Sounds: normal Inspection & Palpation: soft, distended, pertinent finding (tenderness, edema, erythema, warmth, induration over CAPD surgical site. ) Musculoskeletal: normal strength (5/5 throughout), normal tone Extremities: Upper Right: no cyanosis, no edema, no varicosities, no palpable cord, no clubbing, no ulcers, no mottling Upper Left: no cyanosis, no edema, no palpable cord, no clubbing, no ulcers , no mottling Lower Right: no cyanosis, no varicosities, edema Lower Left: no cyanosis, no varicosities, edema Neurologic: Cranial Nerves: grossly intact Assessment and Plan ASSESSMENT and PLAN: Infected CAPD catheter ESRD Pt discussed with Dr Lozoya, who also reviewed pt's CT scan. Since catheter non functional and infected, recommend removal of CAPD catheter. Per discussion with Dr Barreto, will tentatively plan on permcath insertion at same time. Procedures, risks, benefits, and alternatives discussed with pt, he expresses understanding and agreement. Planning on SATURDAY, 07/06. Can consider replacement of CAPD catheter after infection clears. Also discussed AVF creation with pt for backup HD access. He is agreeable, but wishes it to be created at same time as replacement of CAPD catheter if possible.
[2016-07-04 15:58] VITALS: BP 125/78; PULSE 72; TEMP 36.7; O2SAT 93
[2016-07-04] MEDS: DEXTROSE 5% IV SCH (17:48)
[2016-07-04] MEDS: CEFEPIME IV SCH (17:48)
[2016-07-04] MEDS: ASPIRIN 325 MG ECTAB PO SCH (20:56)
[2016-07-04] MEDS: ATORVASTATIN 20 MG TAB PO SCH (20:56)
[2016-07-04] MEDS: AMLODIPINE BESYLATE 5 MG TAB PO SCH (20:57)
[2016-07-05] VITALS (7 sets, daily range): BP systolic 126–135; BP diastolic 78–88; PULSE 77–82; TEMP 36.4–37.1; O2SAT 93–100
[2016-07-05] MEDS ORDERED: NURSING VERBAL MED ORDER ONE ×2 (02:00→10:00)
[2016-07-05] MEDS ORDERED: DOXYCYCLINE HYCLATE 100 MG CAP PO STA (02:06)
[2016-07-05] MEDS: MoRPHine SULFATE 10 MG/ML CARP/VIAL IV PRN ×5 (03:21→20:34)
[2016-07-05] MEDS: ACETAMINOPHEN 500 MG TAB PO SCH ×4 (03:28→18:31)
[2016-07-05 06:41] LABS: HEMATOCRIT 31.4 % (42-52); MEAN CELL VOLUME 87.7 fL (80-100); MEAN CORPUSCULAR HEMOGLOBIN 29.6 pg (25-34); MEAN CORPUSCULAR HGB CONC 33.8 g/dl (32-36); PLATELET COUNT 181 K/uL (130-400); RED BLOOD COUNT 3.58 M/uL (4.7-6.1); WHITE BLOOD COUNT 11.15 K/uL (4.8-10.8)
[2016-07-05] MEDS: LEVOTHYROXINE 50 MCG TAB PO SCH (06:52)
[2016-07-05 07:21] LABS: ESTIMATED AVERAGE GLUCOSE 140 mg/dl; HA1C FLAG Normal (Normal)
[2016-07-05 07:27] LABS: BUN/CREATININE RATIO 7.5 (10-20); CALCIUM 8.4 mg/dl (8.5-10.1); POTASSIUM 3.7 mmol/L (3.5-5.1)
[2016-07-05] MEDS: CIPROFLOXACIN / D5W 400 MG in PREMIXED IN D5W 200 ML IV SCH (07:54)
--- NOTE | 2016-07-05 08:35 | Family Medicine Progress Note ---
Progress Note Date of Service Jul 05, 2016. Subjective Pt evaluation today including: conversation w/ patient, physical exam, chart review, lab review, review of studies Pain: 6/10 PO Intake: WNL Patient had a reaction to the doxy last night that resulted in phlebitis, diphenhydramine received and doxy d/c pain has been stable wound is starting to drain serous fluid Constitutional: No fever Eyes: No worsening of vision ENT: No hearing loss Respiratory: No cough, No dyspnea on exertion, No shortness of breath, No sputum, No wheezing Cardiovascular: No chest pain Abdomen: + pain, No GI bleeding, No constipation, No diarrhea, No nausea, No vomiting Musculoskeletal: No joint pain, No muscle pain Neurologic: No balance problems, No weakness Psychiatric: No depression symptoms Heme: + problem reported (phlebitis) Endo: No fatigue Medications Medications Administered Medications (Trade) Dose Ordered Sig/Leland Route Start Time Stop Time Status Last Admin Dose Admin Morphine Sulfate (MoRPHine SULFATE INJ) 4 mg NOW STAT IV 07/03/16 12:36 07/03/16 12:58 DC 07/03/16 13:28 4 MG Amlodipine Besylate (Norvasc Tab) 10 mg HS PO 07/03/16 22:00 08/02/16 21:59 07/04/16 20:57 10 MG Aspirin (Ecotrin Tab) 325 mg HS PO 07/03/16 22:00 08/02/16 21:59 07/04/16 20:56 325 MG Levothyroxine Sodium (Synthroid Tab) 50 mcg DAILYBB PO 07/04/16 06:30 08/03/16 06:29 07/05/16 06:52 50 MCG Zolpidem Tartrate (Ambien Tab) 5 mg HS PRN PO 07/03/16 13:30 08/02/16 13:29 07/04/16 21:09 5 MG Calcitriol 0.25 mcg 0.25 mcg MoWeFr@0900 PO 07/04/16 09:00 08/03/16 08:59 07/04/16 07:46 0.25 MCG Sodium Chloride 1,000 ml @ 100 mls/hr Q10H ONCE IV 07/03/16 14:15 07/04/16 00:14 DC 07/03/16 14:34 100 MLS/HR Vancomycin HCl/ Sodium Chloride (Vancomycin Inj/ Nss 500ml) 540 ml @ 200 mls/hr 1500 ONCE IV 07/03/16 15:00 07/03/16 17:41 DC 07/03/16 15:15 200 MLS/HR Morphine Sulfate (MoRPHine SULFATE INJ) 6 mg Q4 PRN IV 07/03/16 16:00 07/17/16 15:59 07/05/16 07:40 6 MG Acetaminophen (Tylenol Tab) 500 mg Q6 PO 07/03/16 18:00 08/02/16 17:59 07/05/16 06:52 500 MG Heparin Sodium (Porcine) 5000 unit 5,000 unit Q12 SQ 07/03/16 21:00 08/02/16 20:59 07/04/16 20:55 5,000 UNIT Cefepime HCl/ Dextrose (Maxipime IV/D5 100ml) 112.5 ml @ 200 mls/hr NOW ONCE IV 07/03/16 17:45 07/03/16 18:18 DC 07/03/16 18:18 200 MLS/HR Menthol (Nice Anne) 24 anne STK-MED ONCE .ROUTE 07/04/16 00:06 07/04/16 00:09 DC 07/04/16 00:26 24 ANNE Hydromorphone HCl 0.5 mg 0.5 mg STK-MED ONCE .ROUTE 07/04/16 03:03 07/04/16 03:07 DC 07/04/16 03:09 0.5 MG Ciprofloxacin/ Dextrose 400 mg/ Prmx 200 ml @ 100 mls/hr Q24H IV 07/04/16 08:00 07/14/16 07:14 07/05/16 07:54 100 MLS/HR Cefepime HCl/ Dextrose (Maxipime IV/D5 100ml) 102.825 ml @ 200 mls/ hr Q24H IV 07/04/16 18:00 07/12/16 18:31 07/04/16 17:48 200 MLS/HR Hydromorphone HCl 1 mg 1 mg Q4 PRN IV 07/04/16 09:30 07/18/16 09:29 07/04/16 09:52 1 MG Doxycycline Hyclate/Dextrose (Vibramycin IV/ D5 100ml) 110 ml @ 50 mls/hr BID@1000,2200 IV 07/04/16 11:00 07/14/16 10:59 07/04/16 21:09 50 MLS/HR Doxycycline Hyclate (Vibramycin Cap) 100 mg NOW STAT PO 07/05/16 02:06 07/05/16 02:07 DC 07/05/16 02:39 100 MG Diphenhydramine HCl (Benadryl Cap) 25 mg Q6H PRN PO 07/05/16 02:15 08/04/16 02:14 07/05/16 02:39 25 MG Objective Vital Signs Date Time Temp Pulse Resp B/P Pulse Ox O2 Delivery O2 Flow Rate FiO2 07/05/16 08:01 36.4 77 16 135/85 94 Room Air 07/05/16 00:04 37.1 80 20 126/78 93 Room Air 07/05/16 00:00 93 Room Air 07/04/16 16:00 Room Air 07/04/16 15:58 36.7 72 16 125/78 93 Physical Exam General Appearance: no apparent distress Eyes: normal inspection ENT: normal ENT inspection Neck: supple Respiratory/Chest: lungs clear, normal breath sounds, no respiratory distress, no accessory muscle use Cardiovascular: regular rate, rhythm, no murmur Abdomen: normal bowel sounds, soft Extremities: normal inspection, no pedal edema, no calf tenderness Neurologic/Psychiatric: alert, oriented x 3 Skin: normal color, warm/dry, + pertinent finding (cellulitis continuing to expand beyond the marked area, soft and tender) Lymphatic: no adenopathy Laboratory Results Results Past 24 Hours Test 07/04/16 11:30 07/04/16 16:39 07/04/16 20:59 07/05/16 06:20 Range/Units Bedside Glucose 98 81 99 70-99 mg/dl White Blood Count 11.15 4.8-10.8 K/uL Red Blood Count 3.58 4.7-6.1 M/uL Hemoglobin 10.6 14.0-18.0 g/dL Hematocrit 31.4 42-52 % Mean Corpuscular Volume 87.7 80-100 fL Mean Corpuscular Hemoglobin 29.6 25-34 pg Mean Corpuscular Hemoglobin Concent 33.8 32-36 g/dl RDW Standard Deviation 50.8 36.4-46.3 fL RDW Coefficient of Variation 15.6 11.5-14.5 % Platelet Count 181 130-400 K/uL Mean Platelet Volume 11.0 7.4-10.4 fL Sodium Level 139 136-145 mmol/L Potassium Level 3.7 3.5-5.1 mmol/L Chloride Level 104 98-107 mmol/L Carbon Dioxide Level 23 21-32 mmol/L Anion Gap 12.0 3-11 mmol/L Blood Urea Nitrogen 60 7-18 mg/dl Creatinine 8.00 0.60-1.40 mg/dl Est Creatinine Clear Calc Drug Dose 13.8 ml/min Estimated GFR () 8.1 Estimated GFR (Non- 7.0 BUN/Creatinine Ratio 7.5 10-20 Random Glucose 90 70-99 mg/dl Estimated Average Glucose 140 mg/dl Hemoglobin A1c 6.5 4.5-5.6 % Calcium Level 8.4 8.5-10.1 mg/dl Test 07/05/16 07:27 Range/Units Bedside Glucose 91 70-99 mg/dl Assessment and Plan This is a 50 yo m with cellulitis surrounding his PD catheter site. Currently on cefepime cipro and doxy however the patient did not tolerate IV doxy and suffered from phlebitis. As the cellulitis continues to expand ID will be consulted. Plan is to remove PD cath and place permcath saturday. Cellulitis surrounding PD catheter; erythema, leukocytosis - Cefepime, Cipro and Doxy - follow CBC - 100 NSS @100cc/h x 1- no more IVF - cellulitis has been marked, reassess daily - continues to expand beyond the marked area - consult ID - morphine 6 mg q 4 h - Dilaudid 1 mg q 4 h - Plan is to d/c PD cath sat and place perm cath - CT was negative for abscess - blood cx neg CKD requiring peritoneal dialysis - assess volume status accordingly - I&O and daily weights - nephro consult - appreciate input - will hold torsemide DMII - insulin ISS - BSG ac hs HTN - continue amlodipine Hypothyroidism - continue levothyroxine DVt prophylaxis - heparin q 12 - hold brandie am dose Resident Physician Supervision Note: I interviewed and examined the patient. Discussed with [Kris] and agree with findings and plan as documented in the note. Any exceptions or clarifications are listed here: [None] Documented By: Genaro Hernandez abdominal wall redness had worseneed, still no f/c/s. ID input noted appreciated - agree w revert to vanco. vitals noted see EMR abd - area of erythema sl bigger, still only moderately tender compared to day 1 , still no focal areas of fluctuance. no exudate from PD cath site abdominal wall cellulitis w sepsis on admission - now sepsis resolved, celllulitis persists. agree change back to vanco, agree removal of cath, ongoing f/u otherwise as above Continued [facility] stay due to: multiple IV medications needed, other Discharge planning: uncertain
[2016-07-05] MEDS: INSULIN ASPART 100 UNITS/ML 3 ML PEN SC SCH ×4 (09:09→22:00)
[2016-07-05] MEDS: HEPARIN SOD 5000 UNIT/0.5 ML CARP SQ SCH ×2 (09:11→20:41)
--- NOTE | 2016-07-05 10:13 | Medical Consult ---
Consultation Date of Consultation: Jul 05, 2016. Attending Physician: Genaro Hernandez D.O. Reason for Consultation: Poor response to current regimen, cellulitis History of Present Illness Patient is a 50-year-old male that initially presents the emergency department with complaints of abdominal pain in the area where his PD catheter was placed a few months prior. The patient does have history of end-stage renal disease as left nephrectomy for previous renal carcinoma. The patient did initially have this PD catheter placed approximately 1 year ago, but about 2 weeks ago the patient had his catheter removed so that they can be used for dialysis at home. A few days prior to admission, the patient noted increasing pain, swelling, mild drainage, and erythema in the area of his stitches. the patient states that he had also been experiencing nausea and vomiting at home which was 1 of the main reasons why he decided to be evaluated. Switch upon admission, the patient was noted to have a white blood cell count of 18.49. His creatinine was 8.30. Blood cultures are showing no growth to date. He did have an abdominal/pelvic CT scan which showed his PD catheter along with mild inflammatory changes surrounding the distal end of the catheter within the left lower quadrant, fat stranding and skin thickening within the right lower quadrant in the anterior abdominal wall where the catheter inserted into his abdomen. There was no fluid collection suggested on CT scan. The patient was initially placed on IV vancomycin and cefepime, but was then transitioned to IV cefepime, IV Cipro, and IV doxycycline. Since initiation of the doxycycline, the patient states that he has had severe pain and itching during the infusion at the site. Past Medical/Surgical History Medical Problems: (1) Acute febrile illness Status: Acute (2) End stage renal disease Status: Acute (3) Renal insufficiency Status: Acute (4) Uncontrolled diabetes mellitus Status: Acute Medical Problems: (1) Abdominal pain (2) Benign hypertension (3) Cellulitis (4) Chronic kidney disease, stage V (5) Fever (6) FSGS (focal segmental glomerulosclerosis) (7) Hyperglycemia (8) Hypothyroidism (9) Leukocytosis (10) Peritoneal dialysis catheter dysfunction (11) R index finger surgery (12) Tunnel infection (13) Vision loss Surgical hx: PD catheter insertion Family History Cancer Diabetes mellitus Heart disease Hypertension Kidney disease Kidney stones Noncontributory Social History Smoking Status: Never Smoker Smokeless Tobacco Use: No Alcohol Use: none Drug Use: none Marital Status: Housing Status: lives with family Occupation Status: employed Allergies Coded Allergies: Doxycycline (Verified Allergy, Severe, RASH, 07/05/16) phlebitis and pain with IV administration Penicillins (Verified Allergy, Mild, RASH, HIVES, ITCHING, 07/03/16) Home Medications Reported Home Medications Medications Dose Route/Sig Max Daily Dose Days Date Category Dose Instructions Aspirin Ec (Aspirin) 325 Mg Tab 325 Mg PO HS 07/03/16 Reported Vitamin D 08564 Unit (Ergocalciferol) 50,000 Unit Cap 50,000 Unit PO WK 05/31/16 Reported Levothyroxine Sodium 50 Mcg Tab 1 Tab PO QAM 90 05/31/16 Reported Apidra Solostar (Insulin Glulisine) 100 Units/Ml Inj 4 Units SC TIDM 02/23/16 Reported +SLIDING SCALE Lantus (Insulin Glargine) 100 Unit/Ml Inj 24 Units SC HS 02/23/16 Reported Atorvastatin Calcium (Atorvastatin) 20 Mg Tab 1 Tab PO HS 02/23/16 Reported Demadex (Torsemide) 100 Mg Tab 100 Mg PO QAM 02/23/16 Reported Temovate 0.05% (Clobetasol Propionate) Cr 1 Appln EXT BID PRN 10/10/15 Reported Tylenol (Acetaminophen) 500 Mg Tab 500 Mg PO Q6 PRN 10/10/15 Reported Rocaltrol Cap (Calcitriol) 0.25 Mcg Cap 0.25 Mcg PO Q2D 10/10/15 Reported Norvasc (Amlodipine Besylate) 10 Mg Tab 10 Mg PO HS 10/10/15 Reported Ambien (Zolpidem Tartrate) 5 Mg Tab 5 Mg PO HS PRN 10/10/15 Reported Current Inpatient Medications Current Inpatient Medications Medications (Trade) Dose Ordered Sig/Leland Route Start Time Stop Time Status Last Admin Dose Admin Miscellaneous (Iv Fluids Completed) 1 ea PRN PRN N/A 07/03/16 13:00 07/03/17 12:59 Amlodipine Besylate (Norvasc Tab) 10 mg HS PO 07/03/16 22:00 08/02/16 21:59 07/04/16 20:57 10 MG Aspirin (Ecotrin Tab) 325 mg HS PO 07/03/16 22:00 08/02/16 21:59 07/04/16 20:56 325 MG Atorvastatin Calcium (Lipitor Tab) 20 mg HS PO 07/03/16 22:00 08/02/16 21:59 Ergocalciferol (Vitamin D Cap) 50,000 interunit Q7D PO 07/08/16 08:00 08/07/16 07:59 Levothyroxine Sodium (Synthroid Tab) 50 mcg DAILYBB PO 07/04/16 06:30 08/03/16 06:29 07/05/16 06:52 50 MCG Zolpidem Tartrate (Ambien Tab) 5 mg HS PRN PO 07/03/16 13:30 08/02/16 13:29 07/04/16 21:09 5 MG Clobetasol Propionate (Clobetasol Propionate Oint) 1 appln BID PRN EXT 07/03/16 13:30 08/02/16 13:29 Glucose (Glucose 40% Gel) 15-30 GRAMS 15 GRAMS... UD PRN PO 07/03/16 13:45 08/02/16 13:44 Glucose (Glucose Chew Tab) 4-8 Tablets 4 Tabl... UD PRN PO 07/03/16 13:45 08/02/16 13:44 Dextrose (Dextrose 50% 50ML Syringe) 25-50ML OF 50% DW IV FOR... UD PRN IV 07/03/16 13:45 08/02/16 13:44 Glucagon (Glucagon Inj) 1 mg UD PRN SQ 07/03/16 13:45 08/02/16 13:44 Calcitriol (Rocaltrol Cap) 0.25 mcg MoWeFr@0900 PO 07/04/16 09:00 08/03/16 08:59 07/04/16 07:46 0.25 MCG Morphine Sulfate (MoRPHine SULFATE INJ) 6 mg Q4 PRN IV 07/03/16 16:00 07/17/16 15:59 07/05/16 07:40 6 MG Acetaminophen (Tylenol Tab) 500 mg Q6 PO 07/03/16 18:00 08/02/16 17:59 07/05/16 06:52 500 MG Heparin Sodium (Porcine) (Heparin Sq 5000 Unit/0.5ml) 5,000 unit Q12 SQ 07/03/16 21:00 08/02/16 20:59 07/05/16 09:11 5,000 UNIT Menthol 1 kaushik 1 kaushik PRN PRN PO 07/04/16 03:15 08/03/16 03:14 Ciprofloxacin/ Dextrose 400 mg/ Prmx 200 ml @ 100 mls/hr Q24H IV 07/04/16 08:00 07/14/16 07:14 07/05/16 07:54 100 MLS/HR Cefepime HCl/ Dextrose (Maxipime IV/D5 100ml) 102.825 ml @ 200 mls/ hr Q24H IV 07/04/16 18:00 07/12/16 18:31 07/04/16 17:48 200 MLS/HR Hydromorphone HCl 1 mg 1 mg Q4 PRN IV 07/04/16 09:30 07/18/16 09:29 07/04/16 09:52 1 MG Doxycycline Hyclate/Dextrose (Vibramycin IV/ D5 100ml) 110 ml @ 50 mls/hr BID@1000,2200 IV 07/04/16 11:00 07/14/16 10:59 07/04/16 21:09 50 MLS/HR Insulin Aspart (novoLOG ASPART) SLIDING SCALE G... ACHS SC 07/04/16 22:00 08/03/16 21:59 Diphenhydramine HCl (Benadryl Cap) 25 mg Q6H PRN PO 07/05/16 02:15 08/04/16 02:14 07/05/16 02:39 25 MG Sodium Chloride ([place] Nasal [place]) 1 sprays PRN PRN NA 07/05/16 10:15 08/04/16 10:14 Review of Systems Constitutional: + chills, + fatigue, + fever, + sweats Eyes: No worsening of vision ENT: + sore throat (from vomiting), No hearing loss Respiratory: + cough, No shortness of breath Cardiovascular: No chest pain Abdomen: + nausea, + pain, + problem reported (PD catheter right abdomen), + vomiting, No diarrhea Musculoskeletal: No joint pain Genitourinary - Male: No hematuria Integumentary: + color change (erythema of the abdomen around PD cath), No itch , No rash Physical Exam Date Time Temp Pulse Resp B/P Pulse Ox O2 Delivery O2 Flow Rate FiO2 07/05/16 08:01 36.4 77 16 135/85 94 Room Air 07/05/16 00:04 37.1 80 20 126/78 93 Room Air 07/05/16 00:00 93 Room Air 07/04/16 16:00 Room Air 07/04/16 15:58 36.7 72 16 125/78 93 General Appearance: no apparent distress, + obese Head: normocephalic, atraumatic Eyes: normal inspection, sclerae normal ENT: hearing grossly normal Neck: supple, trachea midline Respiratory/Chest: chest non-tender, lungs clear, normal breath sounds, no respiratory distress, no accessory muscle use Cardiovascular: regular rate, rhythm, no murmur Abdomen/GI: normal bowel sounds, + tenderness (surrounding PD catheter) Back: normal inspection Extremities/Musculoskelatal: normal range of motion Neurologic/Psych: alert, normal mood/affect Skin: warm/dry, no rash, + pertinent finding (bright erythema surrounding PD catheter and yellow drainage noted on bandage. Erythema tracking to left abdomen and down to almost groin) Laboratory Results ABDOMEN AND PELVIS CT WITHOUT CONTRAST CT DOSE: 1602.22 mGy.cm HISTORY: Peritoneal dialysis catheter infection TECHNIQUE: Multiaxial CT images of the abdomen and pelvis were performed without contrast. COMPARISON STUDY: Abdomen and pelvis CT 06/22/2016. FINDINGS: The lung bases are clear. No suspicious lytic or blastic osseous lesions. Hepatic steatosis. The unenhanced gallbladder, spleen, adrenal glands, right kidney, and pancreas are unremarkable. The left kidney is surgically absent. Stable small scarlike densities at the nephrectomy bed. No retroperitoneal lymphadenopathy. Normal bladder. Suboptimal evaluation for bowel pathology due to the lack of intravenous and oral contrast. However, there is no definite bowel wall thickening or obstruction. A few colonic diverticula. Normal appendix. There is a right lower quadrant peritoneal dialysis catheter which enters the midline of the lower anterior abdominal wall and extends into the left midabdomen. There is mild inflammatory change surrounding the distal end of the catheter within the left lower quadrant best seen on image 64. There is also mild fat stranding and skin thickening within the right lower quadrant anterior abdominal wall at the catheter insertion. This is consistent with the patient's history of infected peritoneal dialysis catheter. There are no loculated fluid collections to suggest an abscess. IMPRESSION: There is a peritoneal dialysis catheter as described above. There is mild inflammatory change surrounding the distal end of the catheter within the left lower quadrant. There is also mild fat stranding and skin thickening within the right lower quadrant anterior abdominal wall at the catheter insertion. This is consistent with the patient's history of infected peritoneal dialysis catheter. There are no loculated fluid collections to suggest an abscess. Item Value Date Time Blood Culture - Preliminary Resulted 07/03/16 1000 Blood NO GROWTH TO DATE. Blood Culture - Preliminary Resulted 07/03/16 0835 Blood NO GROWTH TO DATE. Last 24 Hours Test 07/04/16 11:30 07/04/16 16:39 07/04/16 20:59 07/05/16 06:20 Bedside Glucose 98 mg/dl 81 mg/dl 99 mg/dl White Blood Count 11.15 K/uL Red Blood Count 3.58 M/uL Hemoglobin 10.6 g/dL Hematocrit 31.4 % Mean Corpuscular Volume 87.7 fL Mean Corpuscular Hemoglobin 29.6 pg Mean Corpuscular Hemoglobin Concent 33.8 g/dl RDW Standard Deviation 50.8 fL RDW Coefficient of Variation 15.6 % Platelet Count 181 K/uL Mean Platelet Volume 11.0 fL Sodium Level 139 mmol/L Potassium Level 3.7 mmol/L Chloride Level 104 mmol/L Carbon Dioxide Level 23 mmol/L Anion Gap 12.0 mmol/L Blood Urea Nitrogen 60 mg/dl Creatinine 8.00 mg/dl Est Creatinine Clear Calc Drug Dose 13.8 ml/min Estimated GFR () 8.1 Estimated GFR (Non- 7.0 BUN/Creatinine Ratio 7.5 Random Glucose 90 mg/dl Estimated Average Glucose 140 mg/dl Hemoglobin A1c 6.5 % Calcium Level 8.4 mg/dl Test 07/05/16 07:27 Bedside Glucose 91 mg/dl Assessment & Plan Patient with abdominal wall cellulitis and probable infected PD catheter. He had one dose of Vancomycin and is currently on IV Cefepime, Doxycycline, and Cipro. Will D/C Doxycycline and Cipro. Continue Cefepime and will start IV Vancomycin. Wound culture ordered of drainage from around PD Cath. Agree that catheter needs removed. Please culture tip of catheter following removal. The patient likely will need continued IV abx therapy pending further improvement. We will follow. Note: This document was dictated utilizing PROFIC[employer] voice recognition software. Minor errors in energy trader may be present. PROVIDER ADDENDUM: Patient examined and reviewed with Ms. Granados. Agree with above assessment.
[2016-07-05] MEDS ORDERED: SODIUM CHLORIDE 0.65% NA SOLN 45 ML (OCEAN) PRN (10:15)
--- NOTE | 2016-07-05 10:25 | Nephrology Progress Note ---
Nephrology Progress Note Date of Service Jul 05, 2016. Chief Complaint ESRD; PD catheter malfunction Subjective Sesar had difficulty with doxycycline overnight. He experienced sclerosis with IV and was not able to tolerate oral due to nausea and vomiting. He remains very frustrated. He denies fevers or chills. Abdominal pain persists. He denies shortness of breath. He reports generalized fatigue and anorexia. He continues to experience nausea and has difficulty keeping medications down. Review of Systems A complete review of systems was performed. Pertinent positives are noted above. All other systems are negative. Vital Signs Last 8 Hrs Date Time Temp Pulse Resp B/P Pulse Ox O2 Delivery O2 Flow Rate FiO2 07/05/16 08:01 36.4 77 16 135/85 94 Room Air I & O 24-Hour Column 07/05/16 08:00 Intake Total 730 ml Output Total 1100 ml Balance -370 ml Last Recorded Weight Weight (Kilograms): 108.800 Physical Exam General Appearance: no apparent distress, + obese Head: normocephalic, atraumatic Eyes: normal inspection, sclerae normal ENT: normal ENT inspection, pharynx normal Neck: supple, no JVD Respiratory/Chest: lungs clear, no respiratory distress, no accessory muscle use Cardiovascular: regular rate, rhythm, no gallop Abdomen/GI: soft, + distended, + pertinent finding (Erythema surrounding P catheter exit site with small amount of yellow drainage on dressing) Extremities/Musculoskelatal: normal inspection, + pedal edema Neurologic/Psych: alert, + depressed affect Family History Cancer Diabetes mellitus Heart disease Hypertension Kidney disease Kidney stones Social History Smoking Status: Never smoker Smokeless Tobacco Use: No Alcohol Use: none Drug Use: none Marital Status: Occupation: employed Laboratory Results Past 24 Hours 07/05/16 06:20 07/05/16 06:20 Test 07/04/16 11:30 07/04/16 16:39 07/04/16 20:59 07/05/16 06:20 Bedside Glucose 98 mg/dl (70-99) 81 mg/dl (70-99) 99 mg/dl (70-99) Red Blood Count 3.58 M/uL (4.7-6.1) Mean Corpuscular Volume 87.7 fL (80-100) Mean Corpuscular Hemoglobin 29.6 pg (25-34) Mean Corpuscular Hemoglobin Concent 33.8 g/dl (32-36) RDW Standard Deviation 50.8 fL (36.4-46.3) RDW Coefficient of Variation 15.6 % (11.5-14.5) Mean Platelet Volume 11.0 fL (7.4-10.4) Anion Gap 12.0 mmol/L (3-11) Est Creatinine Clear Calc Drug Dose 13.8 ml/min Estimated GFR () 8.1 Estimated GFR (Non- 7.0 BUN/Creatinine Ratio 7.5 (10-20) Estimated Average Glucose 140 mg/dl Hemoglobin A1c 6.5 % (4.5-5.6) Calcium Level 8.4 mg/dl (8.5-10.1) Test 07/05/16 07:27 Bedside Glucose 91 mg/dl (70-99) Allergies Coded Allergies: Doxycycline (Verified Allergy, Severe, RASH, 07/05/16) phlebitis and pain with IV administration Penicillins (Verified Allergy, Mild, RASH, HIVES, ITCHING, 07/03/16) Medications Current Inpatient Medications Medications (Trade) Dose Ordered Sig/Leland Route Start Time Stop Time Status Last Admin Dose Admin Miscellaneous (Iv Fluids Completed) 1 ea PRN PRN N/A 07/03/16 13:00 07/03/17 12:59 Amlodipine Besylate (Norvasc Tab) 10 mg HS PO 07/03/16 22:00 08/02/16 21:59 07/04/16 20:57 10 MG Aspirin (Ecotrin Tab) 325 mg HS PO 07/03/16 22:00 08/02/16 21:59 07/04/16 20:56 325 MG Atorvastatin Calcium (Lipitor Tab) 20 mg HS PO 07/03/16 22:00 08/02/16 21:59 Ergocalciferol (Vitamin D Cap) 50,000 interunit Q7D PO 07/08/16 08:00 08/07/16 07:59 Levothyroxine Sodium (Synthroid Tab) 50 mcg DAILYBB PO 07/04/16 06:30 08/03/16 06:29 07/05/16 06:52 50 MCG Zolpidem Tartrate (Ambien Tab) 5 mg HS PRN PO 07/03/16 13:30 08/02/16 13:29 07/04/16 21:09 5 MG Clobetasol Propionate (Clobetasol Propionate Oint) 1 appln BID PRN EXT 07/03/16 13:30 08/02/16 13:29 Glucose (Glucose 40% Gel) 15-30 GRAMS 15 GRAMS... UD PRN PO 07/03/16 13:45 08/02/16 13:44 Glucose (Glucose Chew Tab) 4-8 Tablets 4 Tabl... UD PRN PO 07/03/16 13:45 08/02/16 13:44 Dextrose (Dextrose 50% 50ML Syringe) 25-50ML OF 50% DW IV FOR... UD PRN IV 07/03/16 13:45 08/02/16 13:44 Glucagon (Glucagon Inj) 1 mg UD PRN SQ 07/03/16 13:45 08/02/16 13:44 Calcitriol (Rocaltrol Cap) 0.25 mcg MoWeFr@0900 PO 07/04/16 09:00 08/03/16 08:59 07/04/16 07:46 0.25 MCG Morphine Sulfate (MoRPHine SULFATE INJ) 6 mg Q4 PRN IV 07/03/16 16:00 07/17/16 15:59 07/05/16 07:40 6 MG Acetaminophen (Tylenol Tab) 500 mg Q6 PO 07/03/16 18:00 08/02/16 17:59 07/05/16 06:52 500 MG Heparin Sodium (Porcine) (Heparin Sq 5000 Unit/0.5ml) 5,000 unit Q12 SQ 07/03/16 21:00 08/02/16 20:59 07/05/16 09:11 5,000 UNIT Menthol 1 kaushik 1 kaushik PRN PRN PO 07/04/16 03:15 08/03/16 03:14 Cefepime HCl/ Dextrose (Maxipime IV/D5 100ml) 102.825 ml @ 200 mls/ hr Q24H IV 07/04/16 18:00 07/12/16 18:31 07/04/16 17:48 200 MLS/HR Hydromorphone HCl (Dilaudid Inj) 1 mg Q4 PRN IV 07/04/16 09:30 07/18/16 09:29 07/04/16 09:52 1 MG Insulin Aspart (novoLOG ASPART) SLIDING SCALE G... ACHS SC 07/04/16 22:00 08/03/16 21:59 Diphenhydramine HCl (Benadryl Cap) 25 mg Q6H PRN PO 07/05/16 02:15 08/04/16 02:14 07/05/16 02:39 25 MG Sodium Chloride 1 sprays 1 sprays PRN PRN NA 07/05/16 10:15 08/04/16 10:14 Vancomycin HCl/ Sodium Chloride (Vancomycin Inj/ Nss 250ml) 280 ml @ 125 mls/hr DAILY IV 07/06/16 08:00 07/16/16 07:59 UNV Impression (1) Chronic kidney disease, stage V (2) FSGS (focal segmental glomerulosclerosis) (3) Peritoneal dialysis catheter dysfunction (4) Tunnel infection (5) Cellulitis Mr. Sesar Hernandez is a 50 year-old male with obesity, nonalcoholic steatohepatitis, diabetes mellitus, hypothyroidism, FSGS, arteriolosclerosis and CKD V following nephrectomy for a localized RCC. Buried PD catheter was placed by Dr. Lozoya without complications on October 13, 2015. In the setting of increasing symptoms of advanced renal failure, catheter was externalized on June 14 2015. Unfortunately, catheter has not drained appropriately presumably due to an omental sheath and movement from pelvis to abdomen. Unfortunately, he presented to the ED at [facility] on 07/03/16 with abdominal pain, nausea, anorexia and fevers. He has a tunnel tract infection without exudate or drainage from catheter. CT scan did not reveal an abscess Plan of care was discussed with Dr. Hernandez as well as Dr. Lozoya this morning. Recommendations -- Blood cultures negative -- Id consult pending -- Vascular to remove PD catheter tomorrow -- I had a long conversation with Sesar this morning. Symptom burden increasing. We will plan H permcath placement with vascular surgery. 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
[2016-07-05] MEDS ORDERED: VANCOMYCIN CONSULT ACTIVE PRN (11:00)
--- NOTE | 2016-07-05 12:58 | Medical Student: [facility] ---
Med Student Progress Note Date of Service Jul 05, 2016. Subjective Pt evaluation today including: conversation w/ patient Voiding: no voiding problems Mr. Hernandez is a 50 year old male with past medical history significant for chronic kideny disease, history of RCC and left nephrectomy, type 2 DM, and hypothyroidism being treated for cellulitis and possible tunnel tract infection of peritoneal dialysis catheter unburied 2 weeks ago, originally placed 1 year ago. No acute events overnight. Patient states pain increased today. States pain is 7/10 versus 5/10 yesterday. Describes as nonradiating and sharp. Denies cramps. Notes poor appetite and poor sleep. Reports making urine. States doxycycline IV burned and subsequent PO dose he threw up. Denies fever, chills, nausea, vomiting, lightheadedness, chest pain, palpitations, difficulty breathing. Review of Systems Constitutional: No chills, No fever, No sweats Respiratory: No cough, No hemoptysis, No shortness of breath, No sputum, No wheezing Cardiac: No chest pain, No edema, No palpitations Abdomen: + pain, No GI bleeding, No diarrhea, No nausea, No vomiting Musculoskeletal: No calf pain, No swelling Male : No dysuria, No urinary frequency Objective Vital Signs Date Time Temp Pulse Resp B/P Pulse Ox O2 Delivery O2 Flow Rate FiO2 07/05/16 08:01 36.4 77 16 135/85 94 Room Air 07/05/16 08:00 93 Room Air 07/05/16 00:04 37.1 80 20 126/78 93 Room Air 07/05/16 00:00 93 Room Air 07/04/16 16:00 Room Air 07/04/16 15:58 36.7 72 16 125/78 93 Physical Exam General Appearance: WD/WN, + mild distress Neck: supple, no adenopathy, no JVD Respiratory/Chest: chest non-tender, lungs clear, normal breath sounds, no respiratory distress, no accessory muscle use Cardiovascular: regular rate, rhythm, no gallop, no JVD, no murmur Abdomen: normal bowel sounds, soft, + distended, + tenderness (surrounding catheter) Extremities: no calf tenderness, + pedal edema (1+) Neurologic/Psychiatric: alert, normal mood/affect, oriented x 3 Skin: + pertinent finding (erythematous, swollen, tender area surounding incision and catheter tube. Mild yellow drainage at tube. Border extension few inches on all sides) Laboratory Results Last 24 Hours Test 07/04/16 16:39 07/04/16 20:59 07/05/16 06:20 07/05/16 07:27 Bedside Glucose 81 mg/dl 99 mg/dl 91 mg/dl White Blood Count 11.15 K/uL Red Blood Count 3.58 M/uL Hemoglobin 10.6 g/dL Hematocrit 31.4 % Mean Corpuscular Volume 87.7 fL Mean Corpuscular Hemoglobin 29.6 pg Mean Corpuscular Hemoglobin Concent 33.8 g/dl RDW Standard Deviation 50.8 fL RDW Coefficient of Variation 15.6 % Platelet Count 181 K/uL Mean Platelet Volume 11.0 fL Sodium Level 139 mmol/L Potassium Level 3.7 mmol/L Chloride Level 104 mmol/L Carbon Dioxide Level 23 mmol/L Anion Gap 12.0 mmol/L Blood Urea Nitrogen 60 mg/dl Creatinine 8.00 mg/dl Est Creatinine Clear Calc Drug Dose 13.8 ml/min Estimated GFR () 8.1 Estimated GFR (Non- 7.0 BUN/Creatinine Ratio 7.5 Random Glucose 90 mg/dl Estimated Average Glucose 140 mg/dl Hemoglobin A1c 6.5 % Calcium Level 8.4 mg/dl Test 07/05/16 11:00 07/05/16 11:51 Random Vancomycin Level 13.7 mcg/ml Bedside Glucose 97 mg/dl Medications Current Inpatient Medications Medications (Trade) Dose Ordered Sig/Leland Route Start Time Stop Time Status Last Admin Dose Admin Miscellaneous (Iv Fluids Completed) 1 ea PRN PRN N/A 07/03/16 13:00 07/03/17 12:59 Amlodipine Besylate (Norvasc Tab) 10 mg HS PO 07/03/16 22:00 08/02/16 21:59 07/04/16 20:57 10 MG Aspirin (Ecotrin Tab) 325 mg HS PO 07/03/16 22:00 08/02/16 21:59 07/04/16 20:56 325 MG Atorvastatin Calcium (Lipitor Tab) 20 mg HS PO 07/03/16 22:00 08/02/16 21:59 Ergocalciferol (Vitamin D Cap) 50,000 interunit Q7D PO 07/08/16 08:00 08/07/16 07:59 Levothyroxine Sodium (Synthroid Tab) 50 mcg DAILYBB PO 07/04/16 06:30 08/03/16 06:29 07/05/16 06:52 50 MCG Zolpidem Tartrate (Ambien Tab) 5 mg HS PRN PO 07/03/16 13:30 08/02/16 13:29 07/04/16 21:09 5 MG Clobetasol Propionate (Clobetasol Propionate Oint) 1 appln BID PRN EXT 07/03/16 13:30 08/02/16 13:29 Glucose (Glucose 40% Gel) 15-30 GRAMS 15 GRAMS... UD PRN PO 07/03/16 13:45 08/02/16 13:44 Glucose (Glucose Chew Tab) 4-8 Tablets 4 Tabl... UD PRN PO 07/03/16 13:45 08/02/16 13:44 Dextrose (Dextrose 50% 50ML Syringe) 25-50ML OF 50% DW IV FOR... UD PRN IV 07/03/16 13:45 08/02/16 13:44 Glucagon (Glucagon Inj) 1 mg UD PRN SQ 07/03/16 13:45 08/02/16 13:44 Calcitriol (Rocaltrol Cap) 0.25 mcg MoWeFr@0900 PO 07/04/16 09:00 08/03/16 08:59 07/04/16 07:46 0.25 MCG Morphine Sulfate (MoRPHine SULFATE INJ) 6 mg Q4 PRN IV 07/03/16 16:00 07/17/16 15:59 07/05/16 12:11 6 MG Acetaminophen (Tylenol Tab) 500 mg Q6 PO 07/03/16 18:00 08/02/16 17:59 07/05/16 11:36 500 MG Heparin Sodium (Porcine) (Heparin Sq 5000 Unit/0.5ml) 5,000 unit Q12 SQ 07/03/16 21:00 08/02/16 20:59 07/05/16 09:11 5,000 UNIT Menthol 1 kaushik 1 kaushik PRN PRN PO 07/04/16 03:15 08/03/16 03:14 Cefepime HCl/ Dextrose (Maxipime IV/D5 100ml) 102.825 ml @ 200 mls/ hr Q24H IV 07/04/16 18:00 07/12/16 18:31 07/04/16 17:48 200 MLS/HR Hydromorphone HCl (Dilaudid Inj) 1 mg Q4 PRN IV 07/04/16 09:30 07/18/16 09:29 07/04/16 09:52 1 MG Insulin Aspart (novoLOG ASPART) SLIDING SCALE G... ACHS SC 07/04/16 22:00 08/03/16 21:59 Diphenhydramine HCl (Benadryl Cap) 25 mg Q6H PRN PO 07/05/16 02:15 08/04/16 02:14 07/05/16 02:39 25 MG Sodium Chloride 1 sprays 1 sprays PRN PRN NA 07/05/16 10:15 08/04/16 10:14 07/05/16 12:04 1 SPRAYS Vancomycin HCl/ Sodium Chloride (Vancomycin Inj/ Nss 250ml) 262 ml @ 125 mls/hr TODAY@1300 ONCE IV 07/05/16 13:00 07/05/16 15:05 07/05/16 12:38 125 MLS/HR Vancomycin HCl (Consult) 1 ea UD PRN N/A 07/05/16 11:00 08/04/16 10:59 Assessment and Plan Assessment and Plan: Mr. Hernandez is a 50 year old male with past medical history significant for chronic kidney disease, RCC, type 2 DM, hypothyroidism who is being treated for cellulitis and possible tunnel tract infection. 1. Cellulitis, possible tunnel tract infection - Border extension increased from yesterday. Paitent notes increased pain. Small amount of yellow drainage at site. However no signs of systemic inflammatory response. Patient is afebrile , not tachycardic or tachypneic, and white cell count is less than 12 at 11.15 and trending down. Borderline tachycardic at 95. WBC dropped from18.49 to 12.41 on antibiotics. Pain control improved with morphine. - Day 3 antibiotics. Per ID, discontinue ciprofloxacin and doxycycline. Start vancomycin IV and continue cefepime IV. - Obtain culture of drainage - Continue morphine and Dilaudid for pain - Removal of catheter planned for Thursday 07/[address]ozoya[address] hemodialysis catheter. 2. Chronic kidney disease, stage IV - Last values in May revealed creatinine of 7.4, BUN 54. Consistently trending upward since nephrectomy. Creatinine decreased from 8.3 to 8 today. BUN decreased from 67 to 60. 1450 ml output over past 24 hours. - Continue to hold torsemide - Continue calcitriol daily - Continue I/O, daily weights - Continue to monitor levels - Plan for hemodialysis once catheter placed - Continue tight glycemic control 3. DM type 2 - Hemoglobin A1C decreased from 10.7 in Dec 2015 to 6.5 today. - Continue NovoLog - Continue to monitor blood sugars 4. HTN- Blood pressures have decreased to 120s/7s. High levels two days ago in 140-150s/90s likely due to pain. - Continue Amlodipine 10 mg daily - Continue to monitor pressures 5. Hypothyroidism - Continue Synthroid 50 mcg daily 6. DVT prophylaxis - Heparin 5000 units SQ q 12 - Platelets stable in 180s. Continue to monitor Continued [facility] stay due to: multiple IV medications needed, other Discharge planning: uncertain
[2016-07-05] MEDS ORDERED: VANCOMYCIN INJ 600 MG in SODIUM CHLORIDE 0.9% 250ML 250 ML IV ONE (13:00)
--- NOTE | 2016-07-05 13:21 | Pharmacy Progress Note ---
Pharmacy Antibiotic Prog Note Date of Service: Jul 05, 2016. Subjective: The patient was initially on vancomycin, Cipro and cefepime for abdominal wall cellulitis with probable infected PD catheter. The vancomycin was d/c'd yesterday and changed to doxycycline, which he did not tolerate, so he is now being switched back to vancomycin. Objective: Height (Feet): 6 Height (Inches): 0.00 Weight (Kilograms): 108.800 Levels: Item Value Date Time Random Vancomycin Level 20.8 mcg/ml 07/04/16 0700 Random Vancomycin Level 13.7 mcg/ml 07/05/16 1100 Lab Results (24hrs): Laboratory Tests Test 07/05/16 06:20 BUN/Creatinine Ratio 7.5 Blood Urea Nitrogen 60 mg/dl Creatinine 8.00 mg/dl White Blood Count 11.15 K/uL Micro Results: Item Value Date Time Gram Stain - Final Resulted 07/05/16 1005 Drainage - Surface Abdomen Blood Culture - Preliminary Resulted 07/03/16 1000 Blood NO GROWTH TO DATE. Blood Culture - Preliminary Resulted 07/03/16 0835 Blood NO GROWTH TO DATE. Recent Pertinent Medications: Item Value Date Time Doxycycline 110 ml @ 50 mls/hr 07/04/16 1100 Hyclate 100 mg/ BID@1000,2200/IV 07/04/16 2109 Dextrose Cefepime HCl 250 102.825 ml @ 200 mls/hr 07/04/16 1800 mg/Dextrose Q24H/IV 07/04/16 1748 Ciprofloxacin/ 200 ml @ 100 mls/hr 07/04/16 0800 Dextrose 400 mg/ Q24H/IV 07/05/16 0754 Prmx Assessment & Plan: ASSESSMENT: * Mr. Hernandez has not received a dose of vancomycin since 07/03 but the level yesterday was still 20.8 so I ordered another random level for today to assess how much vancomycin he was clearing (urine output documented yesterday as 1450 mL) * The random level today indicates he is clearing the vancomycin on his own, albeit slowly - estimated t1/2 ~46 hrs * The current level also indicates that he needs re-dosed at this point PLAN: * Vancomycin 600 mg IV x 1 today - to achieve a level of ~20 * Random level with AM labs tomorrow * Will plan to continue with one time doses based upon levels, and with patient most likely starting dialysis Pharmacy will continue to follow and will adjust dose/frequency as necessary. Thank you
--- NOTE | 2016-07-05 15:09 | Anesthesiology Progress Note ---
Anesthesia Progress Note Date of Service Jul 05, 2016. Progress Notes The patient is a 50 y/o male scheduled for removal of PD catheter by Dr. Lozoya. The patient came in with acute febrile illness and was found to have an infected PD catheter. He has been receiving antibiotics. The patient had the catheter placed in September 2015. He was to start dialysis two weeks ago, but the catheter was not working properly at that time. PMH includes HTN, dyslipidemia, ALBA, DM on insulin, hypothyroidism, focal glomerulosclerosis, anemia, renal CA s/p L nephrectomy, obesity, and visual loss. His CXR showed NAD. EKG was NSR. Labs are significant for WBC 11.2, hgb 10.6, BUN 60, and Cr 8. On exam the patient was comfortably sitting in bed. He has a garg with good neck extension. He is a MP 3. Teeth are intact. Lungs were clear. Heart was RRR. Carotids were negative for bruits. The patient was consented for MAC sedation. He was counseled to remain NPO after midnight.
[2016-07-05] MEDS: CEFEPIME IV SCH (18:31)
[2016-07-05] MEDS: DEXTROSE 5% IV SCH (18:31)
[2016-07-05] MEDS: ATORVASTATIN 20 MG TAB PO SCH (20:39)
[2016-07-05] MEDS: AMLODIPINE BESYLATE 5 MG TAB PO SCH (20:39)
[2016-07-05] MEDS: ASPIRIN 325 MG ECTAB PO SCH (20:40)
[2016-07-05] MEDS: ZOLPIDEM TARTRATE 5 MG TAB PO PRN (20:46)
[2016-07-06] VITALS: BP 130/82; PULSE 75; TEMP 36.9; O2SAT 100; O2SAT 95
[2016-07-06] MEDS: ACETAMINOPHEN 500 MG TAB PO SCH ×5 (00:42→23:43)
[2016-07-06] MEDS: MoRPHine SULFATE 10 MG/ML CARP/VIAL IV PRN ×4 (00:43→17:05)
[2016-07-06] MEDS: LEVOTHYROXINE 50 MCG TAB PO SCH (05:03)
[2016-07-06] MEDS: INSULIN ASPART 100 UNITS/ML 3 ML PEN SC SCH ×4 (06:30→21:33)
[2016-07-06 06:53] LABS: HEMATOCRIT 31.9 % (42-52); MEAN CELL VOLUME 87.6 fL (80-100); MEAN CORPUSCULAR HEMOGLOBIN 29.4 pg (25-34); MEAN CORPUSCULAR HGB CONC 33.5 g/dl (32-36); MEAN PLATELET VOLUME 10.9 fL (7.4-10.4); PLATELET COUNT 185 K/uL (130-400); RED BLOOD COUNT 3.64 M/uL (4.7-6.1); WHITE BLOOD COUNT 7.55 K/uL (4.8-10.8)
[2016-07-06 07:36] LABS: BUN/CREATININE RATIO 8.6 (10-20); CALCIUM 8.7 mg/dl (8.5-10.1); CREATININE 7.8 mg/dl (0.60-1.40); POTASSIUM 3.6 mmol/L (3.5-5.1)
--- NOTE | 2016-07-06 07:47 | Medical Student: [facility] ---
Med Student Progress Note Date of Service Jul 06, 2016. Subjective Pt evaluation today including: conversation w/ patient Voiding: no voiding problems Mr. Hernandez is a 50 year old male with past medical history significant for chronic kideny disease, history of RCC and left nephrectomy two years ago, type 2 DM, and hypothyroidism being treated for cellulitis and possible tunnel tract infection of peritoneal dialysis catheter. Catheter was unburied 2 weeks ago, originally placed 1 year ago. No acute events overnight. Patient states pain is 7/10 this morning. States will be receiving pain medication soon, which controls pain well. Describes as nonradiating and sharp. Notes nervousness for surgery this morning to remove catheter and place hemodialysis catheter. States threw up last night, which he attributed to anxiety. Notes poor appetite and poor sleep. Reports making urine. Denies fever, chills, nausea, vomiting, muscle cramps, lightheadedness, chest pain, palpitations, difficulty breathing, hematemesis. Review of Systems Constitutional: No chills, No fever, No sweats Respiratory: No cough, No hemoptysis, No shortness of breath Cardiac: No chest pain, No edema, No palpitations Abdomen: + pain, + vomiting, No GI bleeding, No diarrhea, No nausea Musculoskeletal: No calf pain, No muscle pain, No swelling Male : No dysuria Psychiatric: + anxiety Objective Vital Signs Date Time Temp Pulse Resp B/P Pulse Ox O2 Delivery O2 Flow Rate FiO2 07/06/16 00:00 100 Room Air 07/06/16 00:00 36.9 75 20 130/82 95 Room Air 07/05/16 20:00 100 Room Air 07/05/16 16:02 98 Room Air 07/05/16 15:23 36.4 82 16 129/88 98 Room Air 07/05/16 08:01 36.4 77 16 135/85 94 Room Air 07/05/16 08:00 93 Room Air Physical Exam General Appearance: WD/WN, + mild distress (in pain) Neck: supple, no adenopathy, no JVD, no carotid bruits Respiratory/Chest: chest non-tender, lungs clear, normal breath sounds, no respiratory distress, no accessory muscle use Cardiovascular: regular rate, rhythm, no edema, no gallop, no murmur Abdomen: normal bowel sounds, soft, + distended, + tenderness (left lower and upper quadrant surrounding incision and tube) Extremities: no calf tenderness, + pedal edema (1+) Neurologic/Psychiatric: alert, normal mood/affect, oriented x 3 Skin: + pertinent finding (erythematous, edematous, tender around incision and tube. Border extension on all sides 5-6 cm. Mild yellow drainage) Laboratory Results Last 24 Hours Test 07/05/16 11:00 07/05/16 11:51 07/05/16 16:43 07/05/16 20:33 Random Vancomycin Level 13.7 mcg/ml Bedside Glucose 97 mg/dl 87 mg/dl 91 mg/dl Test 07/06/16 06:41 White Blood Count 7.55 K/uL Red Blood Count 3.64 M/uL Hemoglobin 10.7 g/dL Hematocrit 31.9 % Mean Corpuscular Volume 87.6 fL Mean Corpuscular Hemoglobin 29.4 pg Mean Corpuscular Hemoglobin Concent 33.5 g/dl RDW Standard Deviation 50.6 fL RDW Coefficient of Variation 15.6 % Platelet Count 185 K/uL Mean Platelet Volume 10.9 fL Random Vancomycin Level 15.6 mcg/ml Medications Current Inpatient Medications Medications (Trade) Dose Ordered Sig/Leland Route Start Time Stop Time Status Last Admin Dose Admin Miscellaneous (Iv Fluids Completed) 1 ea PRN PRN N/A 07/03/16 13:00 07/03/17 12:59 Amlodipine Besylate (Norvasc Tab) 10 mg HS PO 07/03/16 22:00 08/02/16 21:59 07/05/16 20:39 10 MG Aspirin (Ecotrin Tab) 325 mg HS PO 07/03/16 22:00 08/02/16 21:59 07/05/16 20:40 325 MG Atorvastatin Calcium (Lipitor Tab) 20 mg HS PO 07/03/16 22:00 08/02/16 21:59 Ergocalciferol (Vitamin D Cap) 50,000 interunit Q7D PO 07/08/16 08:00 08/07/16 07:59 Levothyroxine Sodium (Synthroid Tab) 50 mcg DAILYBB PO 07/04/16 06:30 08/03/16 06:29 07/06/16 05:03 50 MCG Zolpidem Tartrate (Ambien Tab) 5 mg HS PRN PO 07/03/16 13:30 08/02/16 13:29 07/05/16 20:46 5 MG Clobetasol Propionate (Clobetasol Propionate Oint) 1 appln BID PRN EXT 07/03/16 13:30 08/02/16 13:29 Glucose (Glucose 40% Gel) 15-30 GRAMS 15 GRAMS... UD PRN PO 07/03/16 13:45 08/02/16 13:44 Glucose (Glucose Chew Tab) 4-8 Tablets 4 Tabl... UD PRN PO 07/03/16 13:45 08/02/16 13:44 Dextrose (Dextrose 50% 50ML Syringe) 25-50ML OF 50% DW IV FOR... UD PRN IV 07/03/16 13:45 08/02/16 13:44 Glucagon (Glucagon Inj) 1 mg UD PRN SQ 07/03/16 13:45 08/02/16 13:44 Calcitriol (Rocaltrol Cap) 0.25 mcg MoWeFr@0900 PO 07/04/16 09:00 08/03/16 08:59 07/04/16 07:46 0.25 MCG Morphine Sulfate (MoRPHine SULFATE INJ) 6 mg Q4 PRN IV 07/03/16 16:00 07/17/16 15:59 07/06/16 05:04 6 MG Acetaminophen (Tylenol Tab) 500 mg Q6 PO 07/03/16 18:00 08/02/16 17:59 07/06/16 05:03 500 MG Heparin Sodium (Porcine) (Heparin Sq 5000 Unit/0.5ml) 5,000 unit Q12 SQ 07/03/16 21:00 08/02/16 20:59 Future Hold 07/05/16 09:11 5,000 UNIT Menthol 1 kaushik 1 kaushik PRN PRN PO 07/04/16 03:15 08/03/16 03:14 Cefepime HCl/ Dextrose (Maxipime IV/D5 100ml) 102.825 ml @ 200 mls/ hr Q24H IV 07/04/16 18:00 07/12/16 18:31 07/05/16 18:31 200 MLS/HR Hydromorphone HCl (Dilaudid Inj) 1 mg Q4 PRN IV 07/04/16 09:30 07/18/16 09:29 07/04/16 09:52 1 MG Insulin Aspart (novoLOG ASPART) SLIDING SCALE G... ACHS SC 07/04/16 22:00 08/03/16 21:59 Diphenhydramine HCl (Benadryl Cap) 25 mg Q6H PRN PO 07/05/16 02:15 08/04/16 02:14 07/05/16 20:45 25 MG Sodium Chloride ([place] Nasal [place]) 1 sprays PRN PRN NA 07/05/16 10:15 08/04/16 10:14 07/05/16 12:04 1 SPRAYS Vancomycin HCl (Consult) 1 ea UD PRN N/A 07/05/16 11:00 08/04/16 10:59 Assessment and Plan Assessment and Plan: Mr. Hernandez is a 50 year old male with past medical history significant for chronic kidney disease, RCC, type 2 DM, hypothyroidism who is being treated for cellulitis and possible tunnel tract infection. 1. Cellulitis, possible tunnel tract infection - Border extension increased from yesterday. Continued pain. Small amount of yellow drainage at site. No signs of systemic inflammatory response. Patient is afebrile, not tachycardic or tachypneic, and white cell count is less than 12 at 7.55, down from 11.15 yesterday. - Blood cultures no growth to date, wound drainage culture pending - Day 4 antibiotics. Continue vancomycin IV and cefepime IV. - Continue morphine and Dilaudid for pain - Removal of catheter this AM with Dr. Lozoya. Will place hemodialysis catheter. 2. Chronic kidney disease, stage IV - Last values in May revealed creatinine of 7.4, BUN 54. Consistently trending upward since nephrectomy. Creatinine decreased from 8.0 to 7.8 today. BUN increased from 60 to 67 today. - Continue calcitriol daily - Continue I/O, daily weights - Continue to monitor renal profile levels - Plan for hemodialysis once catheter placed - Continue tight glycemic control 3. DM type 2 - Hemoglobin A1C decreased from 10.7 in Dec 2015 to 6.5, measured one day ago. - Continue NovoLog sliding scale - Continue to monitor blood sugars 4. HTN- Blood pressures stable in 120-130s/80s. High levels three days ago in 140-150s/90s likely due to pain. - Continue Amlodipine 10 mg daily - Continue to monitor pressures 5. Hypothyroidism - Continue Synthroid 50 mcg daily 6. Dyslipidemia - Last values from December 2015 reveal triglycerides 497, total cholesterol 150, HDL 27. 10 year cardiac risk 11.9%, decreased with 2.6% with high intensity statin - Continue Lipitor 20 mg, consider increasing to 40mg - Continue Aspirin 325 mg 7. Vitamin D deficiency - Last values from 2016 revealed vitamin D level 26.1. - Continue Vitamin D 50,000 Units PO q 7 days 8. DVT prophylaxis - Heparin 5000 units SQ q 12 - Platelets stable in 180s. Continue to monitor Continued [facility] stay due to: multiple IV medications needed, other Discharge planning: uncertain
[2016-07-06] MEDS: CALCITRIOL 0.25 MCG CAP PO SCH (07:57)
[2016-07-06] MEDS ORDERED: MoRPHine SULFATE 10 MG/ML CARP/VIAL IV STA (08:04)
[2016-07-06 08:08] VITALS: BP 145/84; PULSE 75; TEMP 36.7; O2SAT 94
--- NOTE | 2016-07-06 08:47 | Progress Note ---
Progress Note Date of Service Jul 06, 2016. Progress Note Patient for insertion of permcath and removal of infected PD catheter. I have discussed the risks options and benefits of the procedure with the patient. The patient understands the risks options and benefits and agrees to the procedure. I have examined the patient, reviewed the History & Physical and in the interval since the performance of the History & Physical I have noted the following changes of clinical significance: No changes noted
[2016-07-06] MEDS ORDERED: ATROPINE SULFATE 0.1 MG/ML 5ML SYR IV PRN (09:15)
[2016-07-06] MEDS ORDERED: ONDANSETRON INJ 2 MG/ML 2 ML VIAL IV PRN (09:15)
[2016-07-06] MEDS ORDERED: FENTANYL CITRATE INJ 50 MCG/1 ML 2 ML VIAL IV PRN (09:15)
[2016-07-06] MEDS ORDERED: MEPERIDINE HCL 25 MG/ML CARP IV PRN (09:15)
[2016-07-06] MEDS ORDERED: HYDROmorphone INJ 1 MG/ML SYR IV PRN (09:15)
[2016-07-06] MEDS ORDERED: EpHEDrine SULFATE INJ 50 MG/ML AMP IV PRN (09:15)
[2016-07-06] MEDS ORDERED: LABETALOL HCL IV 5 MG/ML 20ML IV PRN (09:15)
[2016-07-06] MEDS ORDERED: HEPARIN SOD (PORCINE) 5000 UNIT/ML 1 ML VIAL ONE (09:20)
--- NOTE | 2016-07-06 09:28 | Pharmacy Progress Note ---
Pharmacy Antibiotic Prog Note Date of Service: Jul 06, 2016. Subjective: The patient is currently receiving vancomycin; dosed based upon levels and cefepime for abdominal wall cellulitis/possible infected PD catheter The patient is currently on day # 4 of IV therapy for vancomycin. Objective: Height (Feet): 6 Height (Inches): 0.00 Weight (Kilograms): 107.400 Levels: Item Value Date Time Random Vancomycin Level 15.6 mcg/ml 07/06/16 0641 Random Vancomycin Level 13.7 mcg/ml 07/05/16 1100 Random Vancomycin Level 20.8 mcg/ml 07/04/16 0700 Lab Results (24hrs): Laboratory Tests Test 07/06/16 06:41 BUN/Creatinine Ratio 8.6 Blood Urea Nitrogen 67 mg/dl Creatinine 7.80 mg/dl White Blood Count 7.55 K/uL Assessment & Plan: Patient on vancomycin and cefepime for abdominal wall cellulitis. Had stopped vancomycin 07/03, but then reordered 07/05 since patient not tolerate doxycycline. ID is following the patient. Vancomycin: * Random level this am was ~15.6 mcg/ml (goal 15-20 mcg/ml) ; planned for removal of PD catheter today. * Will continue to dose by levels ; patient most likely starting dialysis soon * Will give vancomycin 750 mg iv x 1 to achieve an estimated peak~30 mcg/ml * Will order a random level in the am to assist with further dosing Pharmacy will continue to follow and will adjust dose/frequency as necessary. Thank you
--- NOTE | 2016-07-06 09:30 | Family Medicine Progress Note ---
Progress Note Date of Service Jul 06, 2016. Subjective Pt evaluation today including: conversation w/ patient, physical exam, chart review, lab review, review of studies Pain: 5/10 PO Intake: NPO Voiding: no voiding problems Patient has consistent pain, no significant change Plan is for PD cath removal today and perm cath placement Constitutional: No fever Eyes: No worsening of vision Respiratory: No cough, No dyspnea on exertion, No shortness of breath, No sputum, No wheezing Abdomen: + pain, No constipation, No diarrhea, No nausea, No vomiting Musculoskeletal: No joint pain, No muscle pain Male : No dysuria Neurologic: No weakness Endo: + fatigue Skin: + problem reported (worsening cellulitis) Medications Medications Administered Medications (Trade) Dose Ordered Sig/Leland Route Start Time Stop Time Status Last Admin Dose Admin Morphine Sulfate (MoRPHine SULFATE INJ) 4 mg NOW STAT IV 07/03/16 12:36 07/03/16 12:58 DC 07/03/16 13:28 4 MG Amlodipine Besylate (Norvasc Tab) 10 mg HS PO 07/03/16 22:00 08/02/16 21:59 07/05/16 20:39 10 MG Aspirin (Ecotrin Tab) 325 mg HS PO 07/03/16 22:00 08/02/16 21:59 07/05/16 20:40 325 MG Levothyroxine Sodium (Synthroid Tab) 50 mcg DAILYBB PO 07/04/16 06:30 08/03/16 06:29 07/06/16 05:03 50 MCG Zolpidem Tartrate (Ambien Tab) 5 mg HS PRN PO 07/03/16 13:30 08/02/16 13:29 07/05/16 20:46 5 MG Calcitriol 0.25 mcg 0.25 mcg MoWeFr@0900 PO 07/04/16 09:00 08/03/16 08:59 07/04/16 07:46 0.25 MCG Sodium Chloride 1,000 ml @ 100 mls/hr Q10H ONCE IV 07/03/16 14:15 07/04/16 00:14 DC 07/03/16 14:34 100 MLS/HR Vancomycin HCl/ Sodium Chloride (Vancomycin Inj/ Nss 500ml) 540 ml @ 200 mls/hr 1500 ONCE IV 07/03/16 15:00 07/03/16 17:41 DC 07/03/16 15:15 200 MLS/HR Morphine Sulfate (MoRPHine SULFATE INJ) 6 mg Q4 PRN IV 07/03/16 16:00 07/17/16 15:59 07/06/16 05:04 6 MG Acetaminophen (Tylenol Tab) 500 mg Q6 PO 07/03/16 18:00 08/02/16 17:59 07/06/16 05:03 500 MG Heparin Sodium (Porcine) 5000 unit 5,000 unit Q12 SQ 07/03/16 21:00 08/02/16 20:59 Future Hold 07/05/16 09:11 5,000 UNIT Cefepime HCl/ Dextrose (Maxipime IV/D5 100ml) 112.5 ml @ 200 mls/hr NOW ONCE IV 07/03/16 17:45 07/03/16 18:18 DC 07/03/16 18:18 200 MLS/HR Menthol (Nice Anne) 24 anne STK-MED ONCE .ROUTE 07/04/16 00:06 07/04/16 00:09 DC 07/04/16 00:26 24 ANNE Hydromorphone HCl 0.5 mg 0.5 mg STK-MED ONCE .ROUTE 07/04/16 03:03 07/04/16 03:07 DC 07/04/16 03:09 0.5 MG Ciprofloxacin/ Dextrose 400 mg/ Prmx 200 ml @ 100 mls/hr Q24H IV 07/04/16 08:00 07/05/16 10:08 DC 07/05/16 07:54 100 MLS/HR Cefepime HCl/ Dextrose (Maxipime IV/D5 100ml) 102.825 ml @ 200 mls/ hr Q24H IV 07/04/16 18:00 07/12/16 18:31 07/05/16 18:31 200 MLS/HR Hydromorphone HCl 1 mg 1 mg Q4 PRN IV 07/04/16 09:30 07/18/16 09:29 07/04/16 09:52 1 MG Doxycycline Hyclate/Dextrose (Vibramycin IV/ D5 100ml) 110 ml @ 50 mls/hr BID@1000,2200 IV 07/04/16 11:00 07/05/16 10:09 DC 07/04/16 21:09 50 MLS/HR Doxycycline Hyclate (Vibramycin Cap) 100 mg NOW STAT PO 07/05/16 02:06 07/05/16 02:07 DC 07/05/16 02:39 100 MG Diphenhydramine HCl (Benadryl Cap) 25 mg Q6H PRN PO 07/05/16 02:15 08/04/16 02:14 07/05/16 20:45 25 MG Sodium Chloride 1 sprays 1 sprays PRN PRN NA 07/05/16 10:15 08/04/16 10:14 07/05/16 12:04 1 SPRAYS Vancomycin HCl/ Sodium Chloride (Vancomycin Inj/ Nss 250ml) 262 ml @ 125 mls/hr TODAY@1300 ONCE IV 07/05/16 13:00 07/05/16 15:05 DC 07/05/16 12:38 125 MLS/HR Morphine Sulfate (MoRPHine SULFATE INJ) 6 mg NOW STAT IV 07/06/16 08:04 07/06/16 08:08 DC 07/06/16 08:30 6 MG Objective Vital Signs Date Time Temp Pulse Resp B/P Pulse Ox O2 Delivery O2 Flow Rate FiO2 07/06/16 08:08 36.7 75 17 145/84 94 Room Air 07/06/16 00:00 100 Room Air 07/06/16 00:00 36.9 75 20 130/82 95 Room Air 07/05/16 20:00 100 Room Air 07/05/16 16:02 98 Room Air 07/05/16 15:23 36.4 82 16 129/88 98 Room Air Physical Exam General Appearance: no apparent distress Eyes: normal inspection ENT: normal ENT inspection Neck: supple Respiratory/Chest: normal breath sounds, no respiratory distress, no accessory muscle use Cardiovascular: regular rate, rhythm, no murmur Abdomen: normal bowel sounds, soft Extremities: normal range of motion, non-tender, normal inspection, no pedal edema, no calf tenderness Neurologic/Psychiatric: alert, normal mood/affect, oriented x 3 Skin: warm/dry, + pertinent finding (worsening cellulitis, PD cath still in place, serous drainage) Lymphatic: no adenopathy Laboratory Results Results Past 24 Hours Test 07/05/16 11:00 07/05/16 11:51 07/05/16 16:43 07/05/16 20:33 Range/Units Random Vancomycin Level 13.7 mcg/ml Bedside Glucose 97 87 91 70-99 mg/dl Test 07/06/16 06:41 07/06/16 07:32 Range/Units White Blood Count 7.55 4.8-10.8 K/uL Red Blood Count 3.64 4.7-6.1 M/uL Hemoglobin 10.7 14.0-18.0 g/dL Hematocrit 31.9 42-52 % Mean Corpuscular Volume 87.6 80-100 fL Mean Corpuscular Hemoglobin 29.4 25-34 pg Mean Corpuscular Hemoglobin Concent 33.5 32-36 g/dl RDW Standard Deviation 50.6 36.4-46.3 fL RDW Coefficient of Variation 15.6 11.5-14.5 % Platelet Count 185 130-400 K/uL Mean Platelet Volume 10.9 7.4-10.4 fL Sodium Level 141 136-145 mmol/L Potassium Level 3.6 3.5-5.1 mmol/L Chloride Level 105 98-107 mmol/L Carbon Dioxide Level 23 21-32 mmol/L Anion Gap 13.0 3-11 mmol/L Blood Urea Nitrogen 67 7-18 mg/dl Creatinine 7.80 0.60-1.40 mg/dl Est Creatinine Clear Calc Drug Dose 14.0 ml/min Estimated GFR () 8.3 Estimated GFR (Non- 7.2 BUN/Creatinine Ratio 8.6 10-20 Random Glucose 79 70-99 mg/dl Calcium Level 8.7 8.5-10.1 mg/dl Random Vancomycin Level 15.6 mcg/ml Bedside Glucose 78 70-99 mg/dl Microbiology Results 07/05/16 Gram Stain - Final, Resulted 07/05/16 Wound Culture, Resulted Pending Assessment and Plan This is a 50 yo m with cellulitis surrounding his PD catheter site. Currently on cefepime cipro and doxy however the patient did not tolerate IV doxy and suffered from phlebitis. As the cellulitis continues to expand ID will be consulted. The antibiotics had been changed to cefepime and vanco. Plan is to remove PD cath and place permcath today. Cellulitis surrounding PD catheter; erythema, leukocytosis - Cefepime and vanco - follow CBC - 100 NSS @100cc/h x 1- no more IVF - cellulitis has been marked, reassess daily - continues to expand beyond the marked area - consult ID- appreciate input - morphine 6 mg q 4 h - Dilaudid 1 mg q 4 h - CT was negative for abscess - blood cx neg Phlebitis secondary to drug; doxycycline - this has improved - no doxy via IV route CKD requiring peritoneal dialysis - assess volume status accordingly - I&O and daily weights - nephro consult - appreciate input - will hold torsemide DMII - insulin ISS - BSG ac hs HTN - continue amlodipine Hypothyroidism - continue levothyroxine DVt prophylaxis - heparin q 12 - hold brandie am dose Continued [facility] stay due to: other Discharge planning: uncertain
[2016-07-06] MEDS ORDERED: LIDOCAINE/EPINEPHRINE 1% 20 ML VIAL ONE (09:34)
[2016-07-06] MEDS ORDERED: BUPIVACAINE 0.5 % 5 MG/1 ML MPF 30ML VIAL ONE (09:34)
[2016-07-06] MEDS ORDERED: BUPIVACAINE/EPINEPHRINE 0.5% MPF 1:200,000 30 ML VIAL ONE (09:39)
[2016-07-06] MEDS ORDERED: LIDOCAINE HCL 1% 20 ML VIAL ONE (09:39)
[2016-07-06] MEDS ORDERED: MIDAZOLAM HCL 1 MG/ML 2ML VIAL ONE (09:44)
[2016-07-06] MEDS ORDERED: ONDANSETRON INJ 2 MG/ML 2 ML VIAL ONE ×2 (09:44→10:50)
[2016-07-06] MEDS ORDERED: LIDOCAINE HCL 2% 2 ML VIAL (20MG/ML) ONE (09:44)
[2016-07-06] MEDS ORDERED: FENTANYL CITRATE INJ 50 MCG/1 ML 2 ML VIAL ONE (09:44)
[2016-07-06] MEDS ORDERED: PROPOFOL IV EMULSION 10 MG/ML 20 ML VIAL IV ONE ×2 (09:44→10:50)
[2016-07-06] MEDS ORDERED: HEPARIN SOD (PORCINE) 5000 UNIT/ML 1 ML VIAL IV ONE (10:35)
[2016-07-06] MEDS ORDERED: LIDOCAINE HCL 1% 20 ML VIAL INFIL ONE (10:35)
[2016-07-06] MEDS ORDERED: BACITRACIN 50000 UNIT VIAL ONE (11:04)
--- NOTE | 2016-07-06 11:10 | [facility] Post Operative Brief Note ---
Immediate Operative Summary Operative Date Jul 06, 2016. Pre-Operative Diagnosis Infected CAPD catheter ESRD Post-Operative Diagnosis Same Procedure(s) Performed Insertion of Perm Catheter, Right Internal Jugular Approach Ultrasound Localization of Right Internal Jugular Vein Fluoroscopy for Comfirmation Removal of peritoneal dialysis catheter Surgeon Devora Automatic Pinsetter Mechanic Surgeon(s) Juan Pablo Estimated Blood Loss 10 Findings cath and cuff removed. Tip of permcath in distal SVC Specimens None Anesthesia MAC Complication(s) None Disposition Recovery Room / PACU
--- NOTE | 2016-07-06 12:09 | Anesthesiology Progress Note ---
Anesthesia Post Op Note Date & Time Jul 06, 2016 at 12:07 Vital Signs Pain Intensity: 0 Vital Signs Past 12 Hours Date Time Temp Pulse Resp B/P Pulse Ox O2 Delivery O2 Flow Rate FiO2 07/06/16 11:50 81 12 137/95 99 Room Air 07/06/16 11:40 80 12 124/96 97 Room Air 07/06/16 11:30 36.1 88 12 138/69 97 Mask 10 07/06/16 08:08 36.7 75 17 145/84 94 Room Air 07/06/16 08:00 Room Air Notes Mental Status: alert / awake / arousable, participated in evaluation Pt Amnestic to Procedure: Yes Nausea / Vomiting: adequately controlled Pain: adequately controlled Airway Patency, RR, SpO2: stable & adequate BP & HR: stable & adequate Hydration State: stable & adequate Anesthetic Complications: no major complications apparent
[2016-07-06 12:15] VITALS: BP 131/89; PULSE 80; TEMP 36.6; O2SAT 96
--- NOTE | 2016-07-06 12:15 | OPERATIVE REPORT ---
DATE OF OPERATION: 07/06/2016 PREOPERATIVE DIAGNOSES: 1. Infected peritoneal dialysis catheter. 2. Renal failure with need for dialysis. POSTOPERATIVE DIAGNOSES: Same. PROCEDURE: 1. Insertion of right internal jugular tunneled temporary dialysis (PermCath) catheter. 2. Removal of peritoneal dialysis catheter. SURGEON: Hunter Lozoya MD. [employer] CONTROL HEALTH PHYSICIST: Alli Almeida MD; Ludy Gan PA-C. ANESTHESIA: General. ESTIMATED BLOOD LOSS: 15 mL total. COMPLICATIONS: None. INDICATIONS: This is a 50-year-old gentleman with end-stage renal disease. Several months ago, he had a peritoneal dialysis catheter placed. This was subsequently externalized. Unfortunately, he had an area of cellulitis and induration around the externalization area. A CT scan showed fluid collection in this area. Removal of the peritoneal dialysis catheter was indicated. However, the patient continues to require dialysis access, therefore, a tunneled dialysis catheter was indicated for hemodialysis. The patient consented to the above procedure after being explained the risks, benefits, alternatives, and he agreed to proceed. PROCEDURE IN DETAIL: The patient was brought to the operating room and placed in supine position. The right neck was prepped and draped in normal sterile fashion. A timeout was performed and all parties agreed to correct patient and procedure to be performed. The patient was already on scheduled antibiotics. Under ultrasound guidance, the right internal jugular was accessed on the first attempt. A wire was passed to the level of the inferior vena cava. Next, local anesthetic was used to anesthetize the chest wall and entire tract. A small transverse incision was made with 11 blade in the chest wall. The catheter was passed from the chest wall up to the internal jugular vein site. The dilator was then inserted over the wire in the neck. There was some resistance and this did lead to a kink in the wire. The dilator was inserted and a stiff Cleve wire was then passed through the dilator and again to the level of the inferior vena cava. This passed easily. Next, the dilator was removed and the sheath was placed over the Cleve wire. This passed easily and was visualized under fluoroscopic guidance. There was no kinking of the wire. Next, the catheter was tunneled through the sheath. At the completion of this, the catheter sat nicely in the chest area. There was a gentle curve to the catheter but no kink. It flushed and aspirated easily. The catheter was sutured in place. Heparin was instilled on the ends of the catheter. We then turned our attention to removing the peritoneal dialysis catheter. Again, a timeout was performed and all parties agreed to correct patient and procedure to be performed. The lower abdomen was prepped and draped in the normal sterile fashion. We began first by making a skin incision below the umbilicus. This was at the level of the previous incision. Dissection was carried down through subcutaneous tissue. Of note, this area was fairly deep. We were able to identify the cuff of the catheter as it entered the peritoneum. With a combination of blunt dissection and electrocautery, the catheter was freed up. The Prolene suture was cut. There was no pus encountered. The catheter was removed from the peritoneum. 3-0 Prolene suture was then used to suture the hole of the peritoneum. Finally, we turned our attention to removing the externalization site of the catheter. Skin incision was made with a 15 blade scalpel. Dissection was carried down with electrocautery. The cuff was identified actually in the medial portion of the wound. This was gently dilated and Bovie electrocautery was used to free up the cuff. It was gently grasped and the catheter was removed. There was no large amount of pus encountered in either pocket. We did, however, sent cultures from the tract of the catheter. The patient tolerated this procedure well. The infraumbilical incision was closed in layers with the help of Vicryl suture, followed by marnie. The lateral incision was left open and packed with antibiotic-impregnated gauze. The patient was awakened from anesthesia and transferred to recovery room in satisfactory condition. There were no apparent complications. I attest to the content of the Intraoperative Record and any orders documented therein. Any exceptio ns are noted below.
[2016-07-06 12:45] VITALS: BP 157/92; TEMP 36.6; O2SAT 93
[2016-07-06] MEDS ORDERED: VANCOMYCIN INJ 750 MG in SODIUM CHLORIDE 0.9% 250ML 250 ML IV ONE (13:00)
[2016-07-06] MEDS ORDERED: CEFTAROLINE PHARMACY CONSULT IN PROGRESS PRN (13:00)
[2016-07-06] MEDS ORDERED: SODIUM CHLORIDE 0.9% IV SCH (14:00)
[2016-07-06] MEDS ORDERED: CEFTAROLINE FOSAMIL IV SCH (14:00)
[2016-07-06] MEDS: HYDROmorphone INJ 1 MG/ML SYR IV PRN ×3 (14:15→23:40)
--- NOTE | 2016-07-06 15:58 | Infectious Disease Progress Nt ---
Progress Note Date of Service Jul 06, 2016. Subjective Pt evaluation today including: conversation w/ patient, physical exam, chart review, lab review, review of studies, review of inpatient medication list White blood cell count today was 7.55. It is noted that his hepatitis-C antibody, and hep B surface antigen were negative. The patient's creatinine was 7.80 today. He did also have removal of his infected PD catheter this morning Along with insertion of a perm catheter into the right IJ.this operative report was reviewed today. It was also noted that deep cultures were taken. Primary surface culture from around the catheter is showing no growth to date. Blood cultures continue to show no growth to date. Deep cultures are pending but Gram stain shows few gram-positive cocci. The patient states that his erythema had spread further this morning prior to surgery. He is currently on IV vancomycin and cefepime. The patient states he continues to have abdominal pain. This is severe in nature. He otherwise appears to be tolerating his antibiotics well. He does have a mild drug rash on his chest and back, but this is thought to be from the doxycycline that he was previously having a reaction to. All Other Systems: Reviewed and Negative Medications Current Inpatient Medications Medications (Trade) Dose Ordered Sig/Leland Route Start Time Stop Time Status Last Admin Dose Admin Miscellaneous (Iv Fluids Completed) 1 ea PRN PRN N/A 07/03/16 13:00 07/03/17 12:59 Amlodipine Besylate (Norvasc Tab) 10 mg HS PO 07/03/16 22:00 08/02/16 21:59 07/05/16 20:39 10 MG Aspirin (Ecotrin Tab) 325 mg HS PO 07/03/16 22:00 08/02/16 21:59 07/05/16 20:40 325 MG Atorvastatin Calcium (Lipitor Tab) 20 mg HS PO 07/03/16 22:00 08/02/16 21:59 Ergocalciferol (Vitamin D Cap) 50,000 interunit Q7D PO 07/08/16 08:00 08/07/16 07:59 Levothyroxine Sodium (Synthroid Tab) 50 mcg DAILYBB PO 07/04/16 06:30 08/03/16 06:29 07/06/16 05:03 50 MCG Zolpidem Tartrate (Ambien Tab) 5 mg HS PRN PO 07/03/16 13:30 08/02/16 13:29 07/05/16 20:46 5 MG Clobetasol Propionate (Clobetasol Propionate Oint) 1 appln BID PRN EXT 07/03/16 13:30 08/02/16 13:29 Glucose (Glucose 40% Gel) 15-30 GRAMS 15 GRAMS... UD PRN PO 07/03/16 13:45 08/02/16 13:44 Glucose (Glucose Chew Tab) 4-8 Tablets 4 Tabl... UD PRN PO 07/03/16 13:45 08/02/16 13:44 Dextrose (Dextrose 50% 50ML Syringe) 25-50ML OF 50% DW IV FOR... UD PRN IV 07/03/16 13:45 08/02/16 13:44 Glucagon (Glucagon Inj) 1 mg UD PRN SQ 07/03/16 13:45 08/02/16 13:44 Calcitriol (Rocaltrol Cap) 0.25 mcg MoWeFr@0900 PO 07/04/16 09:00 08/03/16 08:59 07/04/16 07:46 0.25 MCG Morphine Sulfate (MoRPHine SULFATE INJ) 6 mg Q4 PRN IV 07/03/16 16:00 07/17/16 15:59 07/06/16 12:54 6 MG Acetaminophen (Tylenol Tab) 500 mg Q6 PO 07/03/16 18:00 08/02/16 17:59 07/06/16 12:30 500 MG Heparin Sodium (Porcine) (Heparin Sq 5000 Unit/0.5ml) 5,000 unit Q12 SQ 07/03/16 21:00 08/02/16 20:59 Future Hold 07/05/16 09:11 5,000 UNIT Menthol (Nice Anne) 1 anne PRN PRN PO 07/04/16 03:15 08/03/16 03:14 Insulin Aspart (novoLOG ASPART) SLIDING SCALE G... ACHS SC 07/04/16 22:00 08/03/16 21:59 Diphenhydramine HCl (Benadryl Cap) 25 mg Q6H PRN PO 07/05/16 02:15 08/04/16 02:14 07/05/16 20:45 25 MG Sodium Chloride ([place] Nasal [place]) 1 sprays PRN PRN NA 07/05/16 10:15 08/04/16 10:14 07/05/16 12:04 1 SPRAYS Miscellaneous Information 1 ea 1 ea UD PRN N/A 07/06/16 13:00 08/05/16 12:59 Ceftaroline Fosamil/Sodium Chloride (Teflaro Inj/Nss 100ml) 106.6667 ml @ 107 mls/hr Q12@0200,1400 IV 07/07/16 02:00 07/17/16 01:59 Hydromorphone HCl (Dilaudid Inj) 1 mg Q3H PRN IV 07/06/16 18:00 07/20/16 17:59 UNV Objective Vital Signs Date Time Temp Pulse Resp B/P Pulse Ox O2 Delivery O2 Flow Rate FiO2 07/06/16 12:45 36.6 16 157/92 93 Room Air 07/06/16 12:15 36.6 80 18 131/89 96 Room Air 07/06/16 11:50 81 12 137/95 99 Room Air 07/06/16 11:40 80 12 124/96 97 Room Air 07/06/16 11:30 36.1 88 12 138/69 97 Mask 10 07/06/16 08:08 36.7 75 17 145/84 94 Room Air 07/06/16 08:00 Room Air 07/06/16 00:00 100 Room Air 07/06/16 00:00 36.9 75 20 130/82 95 Room Air 07/05/16 20:00 100 Room Air 07/05/16 16:02 98 Room Air Physical Exam General Appearance: + mild distress (pain), + obese Eyes: normal inspection, sclerae normal ENT: hearing grossly normal Neck: supple, trachea midline Respiratory/Chest: no respiratory distress, no accessory muscle use Cardiovascular: + tachycardia Abdomen: + distended, + tenderness (generalized) Neurologic/Psychiatric: alert, normal mood/affect Skin: + pertinent finding (erythema noted of the abdominal wall. Very tender and warm) Laboratory Results RUN DATE: 07/06/16 [facility] LAB PAGE 1 RUN TIME: 1442 Specimen Inquiry PATIENT: DAMIEN LYN LOC: [id number] U # : [id number] AGE/SX: 50/M ROOM: [facility], [place] REG : 07/03/[address]: Deni Mills D.O. : 1965 BED: 1 DIS : STATUS: ADM IN TLOC: SPEC #: [id number] NIKHIL: 07/06/16 STATUS: RES REQ #: [id number] RECD: 07/06/[address]: Deni Mills D.O. SOURCE: DRAIN-DEEP ENTR: 07/06/[address]: Mag Granados , PA-C SPDESC: Brenda Mrea MD Pro,Stephanie Barry Ryan, D.O. Roe, Kevin, D.O. ORDERED: AER/ASIM CULTSMR COMMENTS: SOURCE IS CULTURE FROM ABDOMEN ALONG WITH CAPD TIP FROM ABDOMEN. Procedure Result Verified Site GRAM STAIN Final 07/06/16-1442 RESULT NO WBCs SEEN FEW GRAM POSITIVE COCCI OR AER/ASIM CULT Results Pending Item Value Date Time Gram Stain - Final Resulted 07/06/16 1112 Drainage-Deep Abdomen Gram Stain - Final Resulted 07/05/16 1005 Drainage - Surface Abdomen Blood Culture - Preliminary Resulted 07/03/16 1000 Blood NO GROWTH TO DATE. Blood Culture - Preliminary Resulted 07/03/16 0835 Blood NO GROWTH TO DATE. Last 24 Hours Test 07/05/16 16:43 07/05/16 20:33 07/06/16 06:41 07/06/16 07:32 Bedside Glucose 87 mg/dl 91 mg/dl 78 mg/dl White Blood Count 7.55 K/uL Red Blood Count 3.64 M/uL Hemoglobin 10.7 g/dL Hematocrit 31.9 % Mean Corpuscular Volume 87.6 fL Mean Corpuscular Hemoglobin 29.4 pg Mean Corpuscular Hemoglobin Concent 33.5 g/dl RDW Standard Deviation 50.6 fL RDW Coefficient of Variation 15.6 % Platelet Count 185 K/uL Mean Platelet Volume 10.9 fL Sodium Level 141 mmol/L Potassium Level 3.6 mmol/L Chloride Level 105 mmol/L Carbon Dioxide Level 23 mmol/L Anion Gap 13.0 mmol/L Blood Urea Nitrogen 67 mg/dl Creatinine 7.80 mg/dl Est Creatinine Clear Calc Drug Dose 14.0 ml/min Estimated GFR () 8.3 Estimated GFR (Non- 7.2 BUN/Creatinine Ratio 8.6 Random Glucose 79 mg/dl Calcium Level 8.7 mg/dl Random Vancomycin Level 15.6 mcg/ml Test 07/06/16 11:52 07/06/16 13:18 Bedside Glucose 70 mg/dl Hepatitis B Surface Antigen NEG Hepatitis C Antibody NEG Assessment and Plan Patient with abdominal wall cellulitis, probable infected PD catheter, and possible deep abdominal infection. He is currently on IV vancomycin and cefepime. He appeared to have some mild worsening this morning prior to removal of his PD catheter. Therefore, will discontinue IV vancomycin and cefepime and start IV Teflaro. Will await culture results from his deep cultures. Likely, this patient will need a few more days of IV antibiotic therapy. We will continue to follow this patient. PROVIDER ADDENDUM: Patient reviewed with Ms. Granados. Agree with above assessment.
[2016-07-06 16:08] VITALS: BP 148/88; PULSE 84; TEMP 36.6; O2SAT 94
--- NOTE | 2016-07-06 16:36 | Nephrology Progress Note ---
Nephrology Progress Note Date of Service Jul 06, 2016. Chief Complaint ESRD; PD catheter malfunction Subjective No acute events overnight. Pain control fair. Appetite good. No fevers or chills. Sesar was seen and evaluated after returning from the OR this afternoon. Permcath placed without complications. PD catheter removed without complications. Antibiotics adjusted today. Sesar described increasing difficulty starting his urine stream. Review of Systems A complete review of systems was performed. Pertinent positives are noted above. All other systems are negative. Vital Signs Last 8 Hrs Date Time Temp Pulse Resp B/P Pulse Ox O2 Delivery O2 Flow Rate FiO2 07/06/16 16:08 36.6 84 16 148/88 94 Room Air 07/06/16 12:45 36.6 16 157/92 93 Room Air 07/06/16 12:15 36.6 80 18 131/89 96 Room Air 07/06/16 11:50 81 12 137/95 99 Room Air 07/06/16 11:40 80 12 124/96 97 Room Air 07/06/16 11:30 36.1 88 12 138/69 97 Mask 10 I & O 24-Hour Column 07/06/16 07:59 Intake Total 780 ml Output Total 1400 ml Balance -620 ml Last Recorded Weight Weight (Kilograms): 107.400 Physical Exam General Appearance: no apparent distress, + obese Head: normocephalic, atraumatic Eyes: normal inspection, sclerae normal ENT: normal ENT inspection, pharynx normal Neck: supple, no JVD Respiratory/Chest: lungs clear, no respiratory distress, no accessory muscle use Cardiovascular: regular rate, rhythm, no gallop Abdomen/GI: non tender, + distended, + pertinent finding (abdominal wound packed, erythema improving, serous drainage) Extremities/Musculoskelatal: normal inspection, + pedal edema Neurologic/Psych: alert, oriented x 3 Family History Cancer Diabetes mellitus Heart disease Hypertension Kidney disease Kidney stones Social History Smoking Status: Never smoker Smokeless Tobacco Use: No Alcohol Use: none Drug Use: none Marital Status: Occupation: employed Laboratory Results Past 24 Hours 07/06/16 06:41 07/06/16 06:41 Test 07/05/16 16:43 07/05/16 20:33 07/06/16 06:41 07/06/16 07:32 Bedside Glucose 87 mg/dl (70-99) 91 mg/dl (70-99) 78 mg/dl (70-99) Red Blood Count 3.64 M/uL (4.7-6.1) Mean Corpuscular Volume 87.6 fL (80-100) Mean Corpuscular Hemoglobin 29.4 pg (25-34) Mean Corpuscular Hemoglobin Concent 33.5 g/dl (32-36) RDW Standard Deviation 50.6 fL (36.4-46.3) RDW Coefficient of Variation 15.6 % (11.5-14.5) Mean Platelet Volume 10.9 fL (7.4-10.4) Anion Gap 13.0 mmol/L (3-11) Est Creatinine Clear Calc Drug Dose 14.0 ml/min Estimated GFR () 8.3 Estimated GFR (Non- 7.2 BUN/Creatinine Ratio 8.6 (10-20) Calcium Level 8.7 mg/dl (8.5-10.1) Random Vancomycin Level 15.6 mcg/ml Test 07/06/16 11:52 07/06/16 13:18 Bedside Glucose 70 mg/dl (70-99) Hepatitis B Surface Antigen NEG (NEG) Hepatitis C Antibody NEG (NEG) Allergies Coded Allergies: Doxycycline (Verified Allergy, Severe, RASH, 07/05/16) phlebitis and pain with IV administration Penicillins (Verified Allergy, Mild, RASH, HIVES, ITCHING, 07/03/16) Medications Current Inpatient Medications Medications (Trade) Dose Ordered Sig/Leland Route Start Time Stop Time Status Last Admin Dose Admin Miscellaneous (Iv Fluids Completed) 1 ea PRN PRN N/A 07/03/16 13:00 07/03/17 12:59 Amlodipine Besylate (Norvasc Tab) 10 mg HS PO 07/03/16 22:00 08/02/16 21:59 07/05/16 20:39 10 MG Aspirin (Ecotrin Tab) 325 mg HS PO 07/03/16 22:00 08/02/16 21:59 07/05/16 20:40 325 MG Atorvastatin Calcium (Lipitor Tab) 20 mg HS PO 07/03/16 22:00 08/02/16 21:59 Ergocalciferol (Vitamin D Cap) 50,000 interunit Q7D PO 07/08/16 08:00 08/07/16 07:59 Levothyroxine Sodium (Synthroid Tab) 50 mcg DAILYBB PO 07/04/16 06:30 08/03/16 06:29 07/06/16 05:03 50 MCG Zolpidem Tartrate (Ambien Tab) 5 mg HS PRN PO 07/03/16 13:30 08/02/16 13:29 07/05/16 20:46 5 MG Clobetasol Propionate (Clobetasol Propionate Oint) 1 appln BID PRN EXT 07/03/16 13:30 08/02/16 13:29 Glucose (Glucose 40% Gel) 15-30 GRAMS 15 GRAMS... UD PRN PO 07/03/16 13:45 08/02/16 13:44 Glucose (Glucose Chew Tab) 4-8 Tablets 4 Tabl... UD PRN PO 07/03/16 13:45 08/02/16 13:44 Dextrose (Dextrose 50% 50ML Syringe) 25-50ML OF 50% DW IV FOR... UD PRN IV 07/03/16 13:45 08/02/16 13:44 Glucagon (Glucagon Inj) 1 mg UD PRN SQ 07/03/16 13:45 08/02/16 13:44 Calcitriol (Rocaltrol Cap) 0.25 mcg MoWeFr@0900 PO 07/04/16 09:00 08/03/16 08:59 07/04/16 07:46 0.25 MCG Morphine Sulfate (MoRPHine SULFATE INJ) 6 mg Q4 PRN IV 07/03/16 16:00 07/17/16 15:59 07/06/16 12:54 6 MG Acetaminophen (Tylenol Tab) 500 mg Q6 PO 07/03/16 18:00 08/02/16 17:59 07/06/16 12:30 500 MG Heparin Sodium (Porcine) (Heparin Sq 5000 Unit/0.5ml) 5,000 unit Q12 SQ 07/03/16 21:00 08/02/16 20:59 Future Hold 07/05/16 09:11 5,000 UNIT Menthol (Nice Anne) 1 anne PRN PRN PO 07/04/16 03:15 08/03/16 03:14 Insulin Aspart (novoLOG ASPART) SLIDING SCALE G... ACHS SC 07/04/16 22:00 08/03/16 21:59 Diphenhydramine HCl (Benadryl Cap) 25 mg Q6H PRN PO 07/05/16 02:15 08/04/16 02:14 07/05/16 20:45 25 MG Sodium Chloride ([place] Nasal [place]) 1 sprays PRN PRN NA 07/05/16 10:15 08/04/16 10:14 07/05/16 12:04 1 SPRAYS Miscellaneous Information 1 ea 1 ea UD PRN N/A 07/06/16 13:00 08/05/16 12:59 Ceftaroline Fosamil/Sodium Chloride (Teflaro Inj/Nss 100ml) 106.6667 ml @ 107 mls/hr Q12@0200,1400 IV 07/07/16 02:00 07/17/16 01:59 Hydromorphone HCl (Dilaudid Inj) 1 mg Q3H PRN IV 07/06/16 18:00 07/20/16 17:59 Impression (1) Chronic kidney disease, stage V (2) FSGS (focal segmental glomerulosclerosis) (3) Peritoneal dialysis catheter dysfunction (4) Tunnel infection (5) Cellulitis Mr. Sesar Hernandez is a 50 year-old male with obesity, nonalcoholic steatohepatitis, diabetes mellitus, hypothyroidism, FSGS, arteriolosclerosis and CKD V following nephrectomy for a localized RCC. He developed a tunnel infection of PD catheter. Catheter was removed today. Blood cultures negative. Antibiotics switched to ceftaroline today. HD permcath placed today to start hemodialysis tomorrow. Recommendations -- Plan first dialysis treatment tomorrow -- Antibiotics per ID -- Social work to assist with arranging outpatient HD at [facility] -- Hepatitis B ab had been drawn on 06/05/16 and were negative - these results were previously sent to [facility] [place]. Labs were repeated today to assist with dialysis scheduling. 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
[2016-07-06] MEDS ORDERED: NURSING VERBAL MED ORDER ONE (18:00)
[2016-07-06 18:25] LABS: HEPATITIS B AB NEG
[2016-07-06] MEDS: AMLODIPINE BESYLATE 5 MG TAB PO SCH (18:25)
[2016-07-06] MEDS: ASPIRIN 325 MG ECTAB PO SCH (18:26)
[2016-07-06] MEDS: ATORVASTATIN 20 MG TAB PO SCH (18:26)
[2016-07-06] MEDS: ZOLPIDEM TARTRATE 5 MG TAB PO PRN (21:34)
[2016-07-07] VITALS (16 sets, daily range): BP systolic 107–156; BP diastolic 82–101; PULSE 59–84; TEMP 36.7–37.4; O2SAT 92–100
[2016-07-07] MEDS: SODIUM CHLORIDE 0.9% IV SCH ×2 (02:37→13:37)
[2016-07-07] MEDS: CEFTAROLINE FOSAMIL IV SCH ×2 (02:37→13:37)
[2016-07-07] MEDS: HYDROmorphone INJ 1 MG/ML SYR IV PRN ×5 (02:38→22:41)
[2016-07-07] MEDS: MoRPHine SULFATE 10 MG/ML CARP/VIAL IV PRN (05:15)
[2016-07-07] MEDS ORDERED: NURSING VERBAL MED ORDER ONE (05:30)
[2016-07-07] MEDS ORDERED: POLYETHYLENE (MIRALAX) 17 GM PACK PO PRN (05:45)
[2016-07-07] MEDS: ACETAMINOPHEN 500 MG TAB PO SCH ×4 (06:20→22:39)
[2016-07-07] MEDS: LEVOTHYROXINE 50 MCG TAB PO SCH (06:21)
[2016-07-07 07:59] LABS: HEMATOCRIT 30.4 % (42-52); MEAN CELL VOLUME 87.9 fL (80-100); MEAN CORPUSCULAR HEMOGLOBIN 29.5 pg (25-34); MEAN CORPUSCULAR HGB CONC 33.6 g/dl (32-36); MEAN PLATELET VOLUME 11.8 fL (7.4-10.4); PLATELET COUNT 211 K/uL (130-400); RED BLOOD COUNT 3.46 M/uL (4.7-6.1); WHITE BLOOD COUNT 9.18 K/uL (4.8-10.8)
[2016-07-07] MEDS: INSULIN ASPART 100 UNITS/ML 3 ML PEN SC SCH ×3 (08:28→16:30)
[2016-07-07 08:41] LABS: BUN/CREATININE RATIO 8.3 (10-20); CALCIUM 8.8 mg/dl (8.5-10.1); POTASSIUM 3.8 mmol/L (3.5-5.1)
[2016-07-07] MEDS ORDERED: TAMSULOSIN HCL 0.4 MG CAP PO ONE (11:24)
--- NOTE | 2016-07-07 11:35 | Dialysis Progress Note ---
Hemodialysis Note Date of Service Jul 07, 2016. Chief Complaint ESRD Subjective No acute events overnight. Sesar was seen and evaluated during hemodialysis this morning. He is tolerating the procedure well. Blood pressure elevated. No chest pain. No shortness of breath. He denies fevers or chills. Abdominal pain improving. Continues to experience difficulty voiding. Review of Systems A complete review of systems was performed. Pertinent positives are noted above. All other systems are negative. Vital Signs Last 8 Hrs Date Time Temp Pulse Resp B/P Pulse Ox O2 Delivery O2 Flow Rate FiO2 07/07/16 11:00 75 150/101 07/07/16 10:45 79 125/100 07/07/16 10:30 79 133/87 07/07/16 10:15 83 133/83 07/07/16 10:00 81 142/95 07/07/16 09:45 78 154/98 07/07/16 09:30 59 148/92 07/07/16 09:22 74 141/97 07/07/16 09:13 37.4 81 156/96 07/07/16 08:00 Room Air 07/07/16 07:43 36.9 84 17 107/82 92 Room Air I & O 24-Hour Column 07/07/16 08:00 Intake Total 1425 ml Output Total 1400 ml Balance 25 ml Last Recorded Weight Weight (Kilograms): 112.400 Physical Exam General Appearance: no apparent distress, + obese Head: normocephalic, atraumatic Eyes: normal inspection, sclerae normal ENT: normal ENT inspection, pharynx normal Neck: supple, no JVD, + pertinent finding (RIJ HD permcath intact) Respiratory/Chest: lungs clear, no respiratory distress, no accessory muscle use Cardiovascular: regular rate, rhythm, no gallop, no murmur Abdomen/GI: + distended, + pertinent finding (abdominal wound with dressing intact, moderate amount of serous drainage, erythema markedly improved) Extremities/Musculoskelatal: normal inspection, + pedal edema Neurologic/Psych: alert, oriented x 3 Social History Smoking Status: Never smoker Smokeless Tobacco Use: No Alcohol Use: none Drug Use: none Marital Status: Occupation: employed Laboratory Results Past 24 Hours 07/07/16 07:15 07/07/16 07:15 Test 07/06/16 11:52 07/06/16 13:18 07/06/16 16:44 07/06/16 17:26 Bedside Glucose 70 mg/dl (70-99) 88 mg/dl (70-99) Hepatitis B Surface Antigen NEG (NEG) NEG (NEG) Hepatitis C Antibody NEG (NEG) Hepatitis B Surface Antibody NEG Test 07/06/16 20:06 07/07/16 07:15 07/07/16 07:29 Bedside Glucose 102 mg/dl (70-99) 123 mg/dl (70-99) Red Blood Count 3.46 M/uL (4.7-6.1) Mean Corpuscular Volume 87.9 fL (80-100) Mean Corpuscular Hemoglobin 29.5 pg (25-34) Mean Corpuscular Hemoglobin Concent 33.6 g/dl (32-36) RDW Standard Deviation 50.7 fL (36.4-46.3) RDW Coefficient of Variation 15.9 % (11.5-14.5) Mean Platelet Volume 11.8 fL (7.4-10.4) Anion Gap 13.0 mmol/L (3-11) Est Creatinine Clear Calc Drug Dose 13.8 ml/min Estimated GFR () 8.1 Estimated GFR (Non- 7.0 BUN/Creatinine Ratio 8.3 (10-20) Calcium Level 8.8 mg/dl (8.5-10.1) Allergies Coded Allergies: Doxycycline (Verified Allergy, Severe, RASH, 07/05/16) phlebitis and pain with IV administration Penicillins (Verified Allergy, Mild, RASH, HIVES, ITCHING, 07/03/16) Medications Current Inpatient Medications Medications (Trade) Dose Ordered Sig/Leland Route Start Time Stop Time Status Last Admin Dose Admin Miscellaneous (Iv Fluids Completed) 1 ea PRN PRN N/A 07/03/16 13:00 07/03/17 12:59 Ergocalciferol (Vitamin D Cap) 50,000 interunit Q7D PO 07/08/16 08:00 08/07/16 07:59 Levothyroxine Sodium (Synthroid Tab) 50 mcg DAILYBB PO 07/04/16 06:30 08/03/16 06:29 07/06/16 05:03 50 MCG Zolpidem Tartrate (Ambien Tab) 5 mg HS PRN PO 07/03/16 13:30 08/02/16 13:29 07/06/16 21:34 5 MG Clobetasol Propionate (Clobetasol Propionate Oint) 1 appln BID PRN EXT 07/03/16 13:30 08/02/16 13:29 Glucose (Glucose 40% Gel) 15-30 GRAMS 15 GRAMS... UD PRN PO 07/03/16 13:45 08/02/16 13:44 Glucose (Glucose Chew Tab) 4-8 Tablets 4 Tabl... UD PRN PO 07/03/16 13:45 08/02/16 13:44 Dextrose (Dextrose 50% 50ML Syringe) 25-50ML OF 50% DW IV FOR... UD PRN IV 07/03/16 13:45 08/02/16 13:44 Glucagon (Glucagon Inj) 1 mg UD PRN SQ 07/03/16 13:45 08/02/16 13:44 Calcitriol (Rocaltrol Cap) 0.25 mcg MoWeFr@0900 PO 07/04/16 09:00 08/03/16 08:59 07/04/16 07:46 0.25 MCG Morphine Sulfate (MoRPHine SULFATE INJ) 6 mg Q4 PRN IV 07/03/16 16:00 07/17/16 15:59 07/07/16 05:15 6 MG Acetaminophen (Tylenol Tab) 500 mg Q6 PO 07/03/16 18:00 08/02/16 17:59 07/07/16 06:20 500 MG Heparin Sodium (Porcine) (Heparin Sq 5000 Unit/0.5ml) 5,000 unit Q12 SQ 07/03/16 21:00 08/02/16 20:59 Future Hold 07/05/16 09:11 5,000 UNIT Menthol (Nice Anne) 1 anne PRN PRN PO 07/04/16 03:15 08/03/16 03:14 Insulin Aspart (novoLOG ASPART) SLIDING SCALE G... ACHS SC 07/04/16 22:00 08/03/16 21:59 07/07/16 08:28 2 UNITS Diphenhydramine HCl (Benadryl Cap) 25 mg Q6H PRN PO 07/05/16 02:15 08/04/16 02:14 07/05/16 20:45 25 MG Sodium Chloride ([place] Nasal [place]) 1 sprays PRN PRN NA 07/05/16 10:15 08/04/16 10:14 07/05/16 12:04 1 SPRAYS Miscellaneous Information 1 ea 1 ea UD PRN N/A 07/06/16 13:00 08/05/16 12:59 Ceftaroline Fosamil/Sodium Chloride (Teflaro Inj/Nss 100ml) 106.6667 ml @ 107 mls/hr Q12@0200,1400 IV 07/07/16 02:00 07/17/16 01:59 07/07/16 02:37 107 MLS/HR Hydromorphone HCl (Dilaudid Inj) 1 mg Q3H PRN IV 07/06/16 18:00 07/20/16 17:59 07/07/16 02:38 1 MG Amlodipine Besylate (Norvasc Tab) 10 mg DAILY@1800 PO 07/06/16 18:00 08/05/16 17:59 07/06/16 18:25 5 MG Aspirin (Ecotrin Tab) 325 mg DAILY@1800 PO 07/06/16 18:00 08/05/16 17:59 07/06/16 18:26 325 MG Atorvastatin Calcium (Lipitor Tab) 20 mg DAILY@1800 PO 07/06/16 18:00 08/05/16 17:59 07/06/16 18:26 20 MG Polyethylene (Miralax Powder Packet) 17 gm DAILY PRN PO 07/07/16 05:45 08/06/16 05:44 07/07/16 05:45 17 GM Tamsulosin HCl (Flomax Cap) 0.4 mg QAM PO 07/08/16 08:00 08/07/16 07:59 UNV Tamsulosin HCl (Flomax Cap) 0.4 mg 1124 ONCE PO 07/07/16 11:24 07/07/16 11:25 UNV Impression (1) Chronic kidney disease, stage V (2) FSGS (focal segmental glomerulosclerosis) (3) Peritoneal dialysis catheter dysfunction (4) Tunnel infection (5) Cellulitis Mr. Sesar Hernandez is a 50 year-old male with obesity, nonalcoholic steatohepatitis, diabetes mellitus, hypothyroidism, FSGS, arteriolosclerosis and CKD V following nephrectomy for a localized RCC. He developed a tunnel infection of PD catheter. Catheter was removed 07/06/16. HD permcath placed . First dialysis treatment 07/07/16. Blood cultures negative. He has been started on ceftaroline. He has LUTs consistent with BPH. PSA obtained at [facility] on was 1.09. We discussed medical management for BPH today. 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 Hernandez will remain on HD pending treatment of his tunnel infection and suitability for new PD catheter placement. Plan of care discussed with Dr. Lozoya. We have also discussed benefits of having a AVF placed at that time for additional dialysis access.
[2016-07-07] MEDS: ASPIRIN 325 MG ECTAB PO SCH (18:13)
[2016-07-07] MEDS: AMLODIPINE BESYLATE 5 MG TAB PO SCH (18:13)
[2016-07-07] MEDS: ATORVASTATIN 20 MG TAB PO SCH (18:14)
[2016-07-08] VITALS: O2SAT 100
[2016-07-08] MEDS: SODIUM CHLORIDE 0.9% IV SCH ×3 (01:50→23:40)
[2016-07-08] MEDS: CEFTAROLINE FOSAMIL IV SCH ×3 (01:50→23:40)
[2016-07-08] MEDS: HYDROmorphone INJ 1 MG/ML SYR IV PRN ×5 (01:54→20:17)
[2016-07-08] MEDS: ACETAMINOPHEN 500 MG TAB PO SCH ×4 (05:23→23:48)
[2016-07-08] MEDS: LEVOTHYROXINE 50 MCG TAB PO SCH (05:24)
--- NOTE | 2016-07-08 07:01 | Progress Note ---
Subjective Date of Service: Jul 07, 2016. Subjective Pt evaluation today including: conversation w/ patient, conversation w/ family , physical exam, lab review, conversation w/ health consultant, review of inpatient medication list Pain: less abdominal pain today PO Intake: adequate Voiding: voiding difficulty had HD today, 2 hours, tolerated well, fatigued currently c/o weak stream, needs to bear down, started on Flomax eating well less abdominal pain, much less redness, packing changed today Problem List Medical Problems: (1) Acute febrile illness Status: Acute (2) End stage renal disease Status: Acute (3) Renal insufficiency Status: Acute (4) Uncontrolled diabetes mellitus Status: Acute Review of Systems Constitutional: + fatigue, + weakness Male : + slowing stream Skin: + problem reported (wound, less red, less tender, drainage) All Other Systems: Reviewed and Negative Medications Current Inpatient Medications Medications (Trade) Dose Ordered Sig/Leland Route Start Time Stop Time Status Last Admin Dose Admin Miscellaneous (Iv Fluids Completed) 1 ea PRN PRN N/A 07/03/16 13:00 07/03/17 12:59 Ergocalciferol (Vitamin D Cap) 50,000 interunit Q7D PO 07/08/16 08:00 08/07/16 07:59 Levothyroxine Sodium (Synthroid Tab) 50 mcg DAILYBB PO 07/04/16 06:30 08/03/16 06:29 07/06/16 05:03 50 MCG Zolpidem Tartrate (Ambien Tab) 5 mg HS PRN PO 07/03/16 13:30 08/02/16 13:29 07/06/16 21:34 5 MG Clobetasol Propionate (Clobetasol Propionate Oint) 1 appln BID PRN EXT 07/03/16 13:30 08/02/16 13:29 Glucose (Glucose 40% Gel) 15-30 GRAMS 15 GRAMS... UD PRN PO 07/03/16 13:45 08/02/16 13:44 Glucose (Glucose Chew Tab) 4-8 Tablets 4 Tabl... UD PRN PO 07/03/16 13:45 08/02/16 13:44 Dextrose (Dextrose 50% 50ML Syringe) 25-50ML OF 50% DW IV FOR... UD PRN IV 07/03/16 13:45 08/02/16 13:44 Glucagon (Glucagon Inj) 1 mg UD PRN SQ 07/03/16 13:45 08/02/16 13:44 Calcitriol (Rocaltrol Cap) 0.25 mcg MoWeFr@0900 PO 07/04/16 09:00 08/03/16 08:59 07/04/16 07:46 0.25 MCG Morphine Sulfate (MoRPHine SULFATE INJ) 6 mg Q4 PRN IV 07/03/16 16:00 07/17/16 15:59 07/07/16 05:15 6 MG Acetaminophen (Tylenol Tab) 500 mg Q6 PO 07/03/16 18:00 08/02/16 17:59 07/07/16 11:51 500 MG Heparin Sodium (Porcine) (Heparin Sq 5000 Unit/0.5ml) 5,000 unit Q12 SQ 07/03/16 21:00 08/02/16 20:59 Future Hold 07/05/16 09:11 5,000 UNIT Menthol (Nice Anne) 1 anne PRN PRN PO 07/04/16 03:15 08/03/16 03:14 Insulin Aspart (novoLOG ASPART) SLIDING SCALE G... ACHS SC 07/04/16 22:00 08/03/16 21:59 07/07/16 08:28 2 UNITS Diphenhydramine HCl (Benadryl Cap) 25 mg Q6H PRN PO 07/05/16 02:15 08/04/16 02:14 07/05/16 20:45 25 MG Sodium Chloride ([place] Nasal [place]) 1 sprays PRN PRN NA 07/05/16 10:15 08/04/16 10:14 07/05/16 12:04 1 SPRAYS Miscellaneous Information 1 ea 1 ea UD PRN N/A 07/06/16 13:00 08/05/16 12:59 Ceftaroline Fosamil/Sodium Chloride (Teflaro Inj/Nss 100ml) 106.6667 ml @ 107 mls/hr Q12@0200,1400 IV 07/07/16 02:00 07/17/16 01:59 07/07/16 13:37 107 MLS/HR Hydromorphone HCl (Dilaudid Inj) 1 mg Q3H PRN IV 07/06/16 18:00 07/20/16 17:59 07/07/16 14:49 1 MG Amlodipine Besylate (Norvasc Tab) 10 mg DAILY@1800 PO 07/06/16 18:00 08/05/16 17:59 07/06/16 18:25 5 MG Aspirin (Ecotrin Tab) 325 mg DAILY@1800 PO 07/06/16 18:00 08/05/16 17:59 07/06/16 18:26 325 MG Atorvastatin Calcium (Lipitor Tab) 20 mg DAILY@1800 PO 07/06/16 18:00 08/05/16 17:59 07/06/16 18:26 20 MG Polyethylene (Miralax Powder Packet) 17 gm DAILY PRN PO 07/07/16 05:45 08/06/16 05:44 07/07/16 05:45 17 GM Tamsulosin HCl (Flomax Cap) 0.4 mg QAM PO 07/08/16 08:00 08/07/16 07:59 Objective Vital Signs Date Time Temp Pulse Resp B/P Pulse Ox O2 Delivery O2 Flow Rate FiO2 07/07/16 15:36 36.7 67 17 148/88 97 Room Air 07/07/16 11:45 37.1 77 155/87 07/07/16 11:00 75 150/101 07/07/16 10:45 79 125/100 07/07/16 10:30 79 133/87 07/07/16 10:15 83 133/83 07/07/16 10:00 81 142/95 07/07/16 09:45 78 154/98 07/07/16 09:30 59 148/92 07/07/16 09:22 74 141/97 07/07/16 09:13 37.4 81 156/96 07/07/16 08:00 Room Air 07/07/16 07:43 36.9 84 17 107/82 92 Room Air 07/07/16 00:16 36.7 70 16 143/83 92 Room Air 07/07/16 00:00 100 Room Air 07/06/16 16:08 36.6 84 16 148/88 94 Room Air 07/06/16 16:00 Room Air Physical Exam General Appearance: WD/WN, no apparent distress Eyes: normal inspection, EOMI, sclerae normal ENT: normal ENT inspection, hearing grossly normal, pharynx normal Neck: supple, no adenopathy, no JVD, trachea midline Respiratory/Chest: chest non-tender, lungs clear, normal breath sounds, no respiratory distress, no accessory muscle use Cardiovascular: regular rate, rhythm, no edema, no gallop, no JVD, no murmur Abdomen: normal bowel sounds, non tender, soft, no organomegaly Extremities: normal range of motion, non-tender, normal inspection, no pedal edema, no calf tenderness, pelvis stable Neurologic/Psychiatric: nutritional services host II-XII nml as tested, no motor/sensory deficits, alert, normal mood/affect, oriented x 3 Skin: normal color, warm/dry, no rash Laboratory Results Last 24 Hours Test 07/06/16 16:44 07/06/16 17:26 07/06/16 20:06 07/07/16 07:15 Bedside Glucose 88 mg/dl 102 mg/dl Hepatitis B Surface Antigen NEG Hepatitis B Surface Antibody NEG White Blood Count 9.18 K/uL Red Blood Count 3.46 M/uL Hemoglobin 10.2 g/dL Hematocrit 30.4 % Mean Corpuscular Volume 87.9 fL Mean Corpuscular Hemoglobin 29.5 pg Mean Corpuscular Hemoglobin Concent 33.6 g/dl RDW Standard Deviation 50.7 fL RDW Coefficient of Variation 15.9 % Platelet Count 211 K/uL Mean Platelet Volume 11.8 fL Sodium Level 138 mmol/L Potassium Level 3.8 mmol/L Chloride Level 103 mmol/L Carbon Dioxide Level 22 mmol/L Anion Gap 13.0 mmol/L Blood Urea Nitrogen 66 mg/dl Creatinine 8.00 mg/dl Est Creatinine Clear Calc Drug Dose 13.8 ml/min Estimated GFR () 8.1 Estimated GFR (Non- 7.0 BUN/Creatinine Ratio 8.3 Random Glucose 124 mg/dl Calcium Level 8.8 mg/dl Test 07/07/16 07:29 07/07/16 12:07 Bedside Glucose 123 mg/dl 118 mg/dl Assessment and Plan This is a 50 yo m with cellulitis surrounding his PD catheter site. Currently on cefepime cipro and doxy however the patient did not tolerate IV doxy and suffered from phlebitis. As the cellulitis continues to expand ID will be consulted. The antibiotics had been changed to cefepime and vanco. Plan is to remove PD cath and place permcath today. Cellulitis surrounding PD catheter; erythema, leukocytosis - started on Teflaro 07/06 by ID, working quite well, less pain, less erythema - afebrile, WBC normal - morphine 6 mg q 4 h - Dilaudid 1 mg q 4 h - less pain overall today - CT was negative for abscess - blood cx neg - catheter removed on 07/06, marked improvement in pain and redness daily packing wet to dry, may benefit from wound clinic referral on discharge Phlebitis secondary to drug; doxycycline - this has improved - no doxy via IV route ESRD, started on HD on 07/07 - continue HD again on Sunday 07/09 DMII - insulin ISS - BSG ac hs HTN - continue amlodipine Hypothyroidism - continue levothyroxine DVt prophylaxis - heparin Continued [facility] stay due to: other Discharge planning: uncertain
[2016-07-08 07:57] LABS: HEMATOCRIT 30.4 % (42-52); MEAN CELL VOLUME 85.9 fL (80-100); MEAN CORPUSCULAR HEMOGLOBIN 28.5 pg (25-34); MEAN CORPUSCULAR HGB CONC 33.2 g/dl (32-36); MEAN PLATELET VOLUME 11.1 fL (7.4-10.4); PLATELET COUNT 189 K/uL (130-400); RED BLOOD COUNT 3.54 M/uL (4.7-6.1); WHITE BLOOD COUNT 7.77 K/uL (4.8-10.8)
[2016-07-08] MEDS ORDERED: ERGOCALCIFEROL 50,000 INTER.UNIT CAP PO SCH (08:00)
[2016-07-08 08:02] VITALS: BP 132/86; PULSE 86; TEMP 36.5; O2SAT 96
[2016-07-08] MEDS: TAMSULOSIN HCL 0.4 MG CAP PO SCH (08:42)
[2016-07-08 08:45] LABS: BUN/CREATININE RATIO 6.6 (10-20); CALCIUM 8.7 mg/dl (8.5-10.1); CREATININE 7.1 mg/dl (0.60-1.40); POTASSIUM 3.6 mmol/L (3.5-5.1)
[2016-07-08] MEDS: INSULIN ASPART 100 UNITS/ML 3 ML PEN SC SCH ×4 (08:49→22:00)
--- NOTE | 2016-07-08 09:46 | Progress Note ---
Progress Note Date of Service: Jul 08, 2016. Subjective Awake and alert, Minimal pain Problem List Medical Problems: (1) Acute febrile illness Status: Acute (2) End stage renal disease Status: Acute (3) Renal insufficiency Status: Acute (4) Uncontrolled diabetes mellitus Status: Acute Objective Vital Signs Vital Signs Past 12 Hours Date Time Temp Pulse Resp B/P Pulse Ox O2 Delivery O2 Flow Rate FiO2 07/08/16 08:02 36.5 86 16 132/86 96 Room Air 07/08/16 00:00 100 Room Air 07/07/16 23:58 36.8 73 20 136/87 95 Room Air Exam Wound with minimal erythema Base of wound clean and dry Intake & Output 8-Hour Column 07/07/16 07/08/16 07/08/16 16:00 00:00 08:00 Intake Total 360 ml 620 ml Output Total 1350 ml 550 ml Balance -990 ml 70 ml 24-Hour Column 07/08/16 08:00 Intake Total 980 ml Output Total 1900 ml Balance -920 ml Laboratory and Microbiology Results Past 24 Hours Test 07/07/16 12:07 07/07/16 16:36 07/07/16 20:38 07/08/16 06:55 Range/Units Bedside Glucose 118 92 104 70-99 mg/dl White Blood Count 7.77 4.8-10.8 K/uL Red Blood Count 3.54 4.7-6.1 M/uL Hemoglobin 10.1 14.0-18.0 g/dL Hematocrit 30.4 42-52 % Mean Corpuscular Volume 85.9 80-100 fL Mean Corpuscular Hemoglobin 28.5 25-34 pg Mean Corpuscular Hemoglobin Concent 33.2 32-36 g/dl RDW Standard Deviation 49.8 36.4-46.3 fL RDW Coefficient of Variation 15.7 11.5-14.5 % Platelet Count 189 130-400 K/uL Mean Platelet Volume 11.1 7.4-10.4 fL Sodium Level 141 136-145 mmol/L Potassium Level 3.6 3.5-5.1 mmol/L Chloride Level 106 98-107 mmol/L Carbon Dioxide Level 23 21-32 mmol/L Anion Gap 12.0 3-11 mmol/L Blood Urea Nitrogen 47 7-18 mg/dl Creatinine 7.10 0.60-1.40 mg/dl Est Creatinine Clear Calc Drug Dose 15.7 ml/min Estimated GFR () 9.3 Estimated GFR (Non- 8.1 BUN/Creatinine Ratio 6.6 10-20 Random Glucose 100 70-99 mg/dl Calcium Level 8.7 8.5-10.1 mg/dl Test 07/08/16 07:21 Range/Units Bedside Glucose 103 70-99 mg/dl Imp: Infected PD catheter Plan: Catheter tip and skin wound culture were sent separate but cultured as one. From surgery doubt catheter itself was infected. Appeared to be a superficial wound cellulitis. Will continue local care for wound
--- NOTE | 2016-07-08 13:05 | Nephrology Progress Note ---
Nephrology Progress Note Date of Service Jul 08, 2016. Chief Complaint ESRD Subjective No acute events overnight. Tolerated HD yesterday without complications. Appetite good. No fevers or chills. Ambulating in room without difficulty. Pain improving. Abdominal wound showing early evidence of improvement and cellulitis notably improved. No change in LUTS after starting Flomax yesterday. Review of Systems A complete review of systems was performed. Pertinent positives are noted above. All other systems are negative. Vital Signs Last 8 Hrs Date Time Temp Pulse Resp B/P Pulse Ox O2 Delivery O2 Flow Rate FiO2 07/08/16 08:02 36.5 86 16 132/86 96 Room Air 07/08/16 08:00 Room Air I & O 24-Hour Column 07/08/16 07:59 Intake Total 980 ml Output Total 1900 ml Balance -920 ml Last Recorded Weight Weight (Kilograms): 107.800 Physical Exam General Appearance: WD/WN, no apparent distress, + obese Head: normocephalic, atraumatic Eyes: normal inspection, sclerae normal ENT: normal ENT inspection, pharynx normal Neck: supple, no JVD Respiratory/Chest: lungs clear, no respiratory distress, no accessory muscle use Cardiovascular: regular rate, rhythm, no gallop, no murmur Abdomen/GI: non tender, soft, + pertinent finding (cellulitis improving, abdominal wound without discharge or drainage) Extremities/Musculoskelatal: normal inspection, + pedal edema Neurologic/Psych: alert, oriented x 3 Family History Cancer Diabetes mellitus Heart disease Hypertension Kidney disease Kidney stones Social History Smoking Status: Never smoker Smokeless Tobacco Use: No Alcohol Use: none Drug Use: none Marital Status: Occupation: employed Laboratory Results Past 24 Hours 07/08/16 06:55 07/08/16 06:55 Test 07/07/16 16:36 07/07/16 20:38 07/08/16 06:55 07/08/16 07:21 Bedside Glucose 92 mg/dl (70-99) 104 mg/dl (70-99) 103 mg/dl (70-99) Red Blood Count 3.54 M/uL (4.7-6.1) Mean Corpuscular Volume 85.9 fL (80-100) Mean Corpuscular Hemoglobin 28.5 pg (25-34) Mean Corpuscular Hemoglobin Concent 33.2 g/dl (32-36) RDW Standard Deviation 49.8 fL (36.4-46.3) RDW Coefficient of Variation 15.7 % (11.5-14.5) Mean Platelet Volume 11.1 fL (7.4-10.4) Anion Gap 12.0 mmol/L (3-11) Est Creatinine Clear Calc Drug Dose 15.7 ml/min Estimated GFR () 9.3 Estimated GFR (Non- 8.1 BUN/Creatinine Ratio 6.6 (10-20) Calcium Level 8.7 mg/dl (8.5-10.1) Test 07/08/16 11:45 Bedside Glucose 91 mg/dl (70-99) Allergies Coded Allergies: Doxycycline (Verified Allergy, Severe, RASH, 07/05/16) phlebitis and pain with IV administration Penicillins (Verified Allergy, Mild, RASH, HIVES, ITCHING, 07/03/16) Medications Current Inpatient Medications Medications (Trade) Dose Ordered Sig/Leland Route Start Time Stop Time Status Last Admin Dose Admin Miscellaneous (Iv Fluids Completed) 1 ea PRN PRN N/A 07/03/16 13:00 07/03/17 12:59 Ergocalciferol (Vitamin D Cap) 50,000 interunit Q7D PO 07/08/16 08:00 08/07/16 07:59 07/08/16 08:42 50,000 INTERUNIT Levothyroxine Sodium (Synthroid Tab) 50 mcg DAILYBB PO 07/04/16 06:30 08/03/16 06:29 07/06/16 05:03 50 MCG Zolpidem Tartrate (Ambien Tab) 5 mg HS PRN PO 07/03/16 13:30 08/02/16 13:29 07/06/16 21:34 5 MG Clobetasol Propionate (Clobetasol Propionate Oint) 1 appln BID PRN EXT 07/03/16 13:30 08/02/16 13:29 Glucose (Glucose 40% Gel) 15-30 GRAMS 15 GRAMS... UD PRN PO 07/03/16 13:45 08/02/16 13:44 Glucose (Glucose Chew Tab) 4-8 Tablets 4 Tabl... UD PRN PO 07/03/16 13:45 08/02/16 13:44 Dextrose (Dextrose 50% 50ML Syringe) 25-50ML OF 50% DW IV FOR... UD PRN IV 07/03/16 13:45 08/02/16 13:44 Glucagon (Glucagon Inj) 1 mg UD PRN SQ 07/03/16 13:45 08/02/16 13:44 Calcitriol (Rocaltrol Cap) 0.25 mcg MoWeFr@0900 PO 07/04/16 09:00 08/03/16 08:59 07/04/16 07:46 0.25 MCG Morphine Sulfate (MoRPHine SULFATE INJ) 6 mg Q4 PRN IV 07/03/16 16:00 07/17/16 15:59 07/07/16 05:15 6 MG Acetaminophen (Tylenol Tab) 500 mg Q6 PO 07/03/16 18:00 08/02/16 17:59 07/08/16 12:33 500 MG Heparin Sodium (Porcine) (Heparin Sq 5000 Unit/0.5ml) 5,000 unit Q12 SQ 07/03/16 21:00 08/02/16 20:59 Future Hold 07/05/16 09:11 5,000 UNIT Menthol (Nice Anne) 1 anne PRN PRN PO 07/04/16 03:15 08/03/16 03:14 Insulin Aspart (novoLOG ASPART) SLIDING SCALE G... ACHS SC 07/04/16 22:00 08/03/16 21:59 07/08/16 08:49 7 UNITS Diphenhydramine HCl (Benadryl Cap) 25 mg Q6H PRN PO 07/05/16 02:15 08/04/16 02:14 07/05/16 20:45 25 MG Sodium Chloride ([place] Nasal [place]) 1 sprays PRN PRN NA 07/05/16 10:15 08/04/16 10:14 07/05/16 12:04 1 SPRAYS Miscellaneous Information 1 ea 1 ea UD PRN N/A 07/06/16 13:00 08/05/16 12:59 Ceftaroline Fosamil/Sodium Chloride (Teflaro Inj/Nss 100ml) 106.6667 ml @ 107 mls/hr Q12@0200,1400 IV 07/07/16 02:00 07/17/16 01:59 07/08/16 01:50 107 MLS/HR Hydromorphone HCl (Dilaudid Inj) 1 mg Q3H PRN IV 07/06/16 18:00 07/20/16 17:59 07/08/16 12:33 1 MG Amlodipine Besylate (Norvasc Tab) 10 mg DAILY@1800 PO 07/06/16 18:00 08/05/16 17:59 07/07/16 18:13 10 MG Aspirin (Ecotrin Tab) 325 mg DAILY@1800 PO 07/06/16 18:00 08/05/16 17:59 07/07/16 18:13 325 MG Atorvastatin Calcium (Lipitor Tab) 20 mg DAILY@1800 PO 07/06/16 18:00 08/05/16 17:59 07/07/16 18:14 20 MG Polyethylene (Miralax Powder Packet) 17 gm DAILY PRN PO 07/07/16 05:45 08/06/16 05:44 07/07/16 05:45 17 GM Tamsulosin HCl (Flomax Cap) 0.4 mg QAM PO 07/08/16 08:00 08/07/16 07:59 07/08/16 08:42 0.4 MG Impression (1) Chronic kidney disease, stage V (2) FSGS (focal segmental glomerulosclerosis) (3) Peritoneal dialysis catheter dysfunction (4) Tunnel infection (5) Cellulitis Mr. Sesar Hernandez is a 50 year-old male with obesity, nonalcoholic steatohepatitis, diabetes mellitus, hypothyroidism, FSGS, arteriolosclerosis and CKD V following nephrectomy for a localized RCC. He developed a tunnel infection of PD catheter. Catheter was removed 07/06/16. HD permcath placed . First dialysis treatment 07/07/16. Blood cultures negative. He has been started on ceftaroline. He has LUTs consistent with BPH. PSA obtained at [facility] on was 1.09. Tamsulosin added 07/07/16. Recommendations -- Plan second hemodialysis treatment tomorrow -- Antibiotics per ID -- Social work to assist with arranging outpatient HD at [facility], patient previously a PD patient at [facility] -- Volume status and blood pressure appropriate -- Document I/O and repeat metabolic profile tomorrow AM -- Medications appropriately dosed for renal function -- Remains on calcitriol for CKD/MBD -- Continue tamsulosin 0.4 mg daily
--- NOTE | 2016-07-08 15:18 | Progress Note ---
Subjective Date of Service: Jul 08, 2016. Subjective Pt evaluation today including: conversation w/ patient, physical exam, lab review, conversation w/ quality compliance consultant, review of inpatient medication list Pain: less pain today PO Intake: adequate Voiding: no voiding problems patient again feeling much better, eating well plan for HD tomorrow discussed that we will wait for ID to reassess tomorrow, see about converting to PO antibiotics wound care seeing patient Problem List Medical Problems: (1) Acute febrile illness Status: Acute (2) End stage renal disease Status: Acute (3) Renal insufficiency Status: Acute (4) Uncontrolled diabetes mellitus Status: Acute Review of Systems Constitutional: + fatigue, + weakness Abdomen: + pain (much improved) Skin: + problem reported (less redness with wound, less pain) All Other Systems: Reviewed and Negative Medications Current Inpatient Medications Medications (Trade) Dose Ordered Sig/Leland Route Start Time Stop Time Status Last Admin Dose Admin Miscellaneous (Iv Fluids Completed) 1 ea PRN PRN N/A 07/03/16 13:00 07/03/17 12:59 Ergocalciferol (Vitamin D Cap) 50,000 interunit Q7D PO 07/08/16 08:00 08/07/16 07:59 07/08/16 08:42 50,000 INTERUNIT Levothyroxine Sodium (Synthroid Tab) 50 mcg DAILYBB PO 07/04/16 06:30 08/03/16 06:29 07/06/16 05:03 50 MCG Zolpidem Tartrate (Ambien Tab) 5 mg HS PRN PO 07/03/16 13:30 08/02/16 13:29 07/06/16 21:34 5 MG Clobetasol Propionate (Clobetasol Propionate Oint) 1 appln BID PRN EXT 07/03/16 13:30 08/02/16 13:29 Glucose (Glucose 40% Gel) 15-30 GRAMS 15 GRAMS... UD PRN PO 07/03/16 13:45 08/02/16 13:44 Glucose (Glucose Chew Tab) 4-8 Tablets 4 Tabl... UD PRN PO 07/03/16 13:45 08/02/16 13:44 Dextrose (Dextrose 50% 50ML Syringe) 25-50ML OF 50% DW IV FOR... UD PRN IV 07/03/16 13:45 08/02/16 13:44 Glucagon (Glucagon Inj) 1 mg UD PRN SQ 07/03/16 13:45 08/02/16 13:44 Calcitriol (Rocaltrol Cap) 0.25 mcg MoWeFr@0900 PO 07/04/16 09:00 08/03/16 08:59 07/04/16 07:46 0.25 MCG Morphine Sulfate (MoRPHine SULFATE INJ) 6 mg Q4 PRN IV 07/03/16 16:00 07/17/16 15:59 07/07/16 05:15 6 MG Acetaminophen (Tylenol Tab) 500 mg Q6 PO 07/03/16 18:00 08/02/16 17:59 07/08/16 12:33 500 MG Heparin Sodium (Porcine) (Heparin Sq 5000 Unit/0.5ml) 5,000 unit Q12 SQ 07/03/16 21:00 08/02/16 20:59 Future Hold 07/05/16 09:11 5,000 UNIT Menthol (Nice Anne) 1 anne PRN PRN PO 07/04/16 03:15 08/03/16 03:14 Insulin Aspart (novoLOG ASPART) SLIDING SCALE G... ACHS SC 07/04/16 22:00 08/03/16 21:59 07/08/16 08:49 7 UNITS Diphenhydramine HCl (Benadryl Cap) 25 mg Q6H PRN PO 07/05/16 02:15 08/04/16 02:14 07/05/16 20:45 25 MG Sodium Chloride ([place] Nasal [place]) 1 sprays PRN PRN NA 07/05/16 10:15 08/04/16 10:14 07/05/16 12:04 1 SPRAYS Miscellaneous Information 1 ea 1 ea UD PRN N/A 07/06/16 13:00 08/05/16 12:59 Ceftaroline Fosamil/Sodium Chloride (Teflaro Inj/Nss 100ml) 106.6667 ml @ 107 mls/hr Q12@0200,1400 IV 07/07/16 02:00 07/17/16 01:59 07/08/16 14:53 107 MLS/HR Hydromorphone HCl (Dilaudid Inj) 1 mg Q3H PRN IV 07/06/16 18:00 4//17 17:59 07/08/16 12:33 1 MG Amlodipine Besylate (Norvasc Tab) 10 mg DAILY@1800 PO 07/06/16 18:00 08/05/16 17:59 07/07/16 18:13 10 MG Aspirin (Ecotrin Tab) 325 mg DAILY@1800 PO 07/06/16 18:00 08/05/16 17:59 07/07/16 18:13 325 MG Atorvastatin Calcium (Lipitor Tab) 20 mg DAILY@1800 PO 07/06/16 18:00 08/05/16 17:59 07/07/16 18:14 20 MG Polyethylene (Miralax Powder Packet) 17 gm DAILY PRN PO 07/07/16 05:45 08/06/16 05:44 07/07/16 05:45 17 GM Tamsulosin HCl (Flomax Cap) 0.4 mg QAM PO 07/08/16 08:00 08/07/16 07:59 07/08/16 08:42 0.4 MG Objective Vital Signs Date Time Temp Pulse Resp B/P Pulse Ox O2 Delivery O2 Flow Rate FiO2 07/08/16 08:02 36.5 86 16 132/86 96 Room Air 07/08/16 08:00 Room Air 07/08/16 00:00 100 Room Air 07/07/16 23:58 36.8 73 20 136/87 95 Room Air 07/07/16 20:00 100 Room Air 07/07/16 16:00 Room Air 07/07/16 15:36 36.7 67 17 148/88 97 Room Air Physical Exam General Appearance: WD/WN, no apparent distress Eyes: normal inspection, EOMI, sclerae normal ENT: normal ENT inspection, hearing grossly normal, pharynx normal Neck: supple, no adenopathy, no JVD, trachea midline Respiratory/Chest: chest non-tender, lungs clear, normal breath sounds, no respiratory distress, no accessory muscle use Cardiovascular: regular rate, rhythm, no edema, no gallop, no JVD, no murmur Abdomen: normal bowel sounds, non tender, soft, no organomegaly Extremities: normal range of motion, non-tender, normal inspection, no pedal edema, no calf tenderness, pelvis stable Neurologic/Psychiatric: interior specialist II-XII nml as tested, no motor/sensory deficits, alert, normal mood/affect, oriented x 3 Skin: + pertinent finding (less erythema, less pain on palpation, overall improving) Laboratory Results Last 24 Hours Test 07/07/16 16:36 07/07/16 20:38 07/08/16 06:55 07/08/16 07:21 Bedside Glucose 92 mg/dl 104 mg/dl 103 mg/dl White Blood Count 7.77 K/uL Red Blood Count 3.54 M/uL Hemoglobin 10.1 g/dL Hematocrit 30.4 % Mean Corpuscular Volume 85.9 fL Mean Corpuscular Hemoglobin 28.5 pg Mean Corpuscular Hemoglobin Concent 33.2 g/dl RDW Standard Deviation 49.8 fL RDW Coefficient of Variation 15.7 % Platelet Count 189 K/uL Mean Platelet Volume 11.1 fL Sodium Level 141 mmol/L Potassium Level 3.6 mmol/L Chloride Level 106 mmol/L Carbon Dioxide Level 23 mmol/L Anion Gap 12.0 mmol/L Blood Urea Nitrogen 47 mg/dl Creatinine 7.10 mg/dl Est Creatinine Clear Calc Drug Dose 15.7 ml/min Estimated GFR () 9.3 Estimated GFR (Non- 8.1 BUN/Creatinine Ratio 6.6 Random Glucose 100 mg/dl Calcium Level 8.7 mg/dl Test 07/08/16 11:45 Bedside Glucose 91 mg/dl Assessment and Plan This is a 50 yo m with cellulitis surrounding his PD catheter site. Currently on cefepime cipro and doxy however the patient did not tolerate IV doxy and suffered from phlebitis. As the cellulitis continues to expand ID will be consulted. The antibiotics had been changed to cefepime and vanco. Plan is to remove PD cath and place permcath today. Cellulitis surrounding PD catheter; erythema, leukocytosis - started on Teflaro 07/06 by ID, working quite well, less pain, less erythema continue Teflaro over the weekend, ask ID to reassess tomorrow, maybe PO antibiotics? - afebrile, WBC normal - morphine 6 mg q 4 h - Dilaudid 1 mg q 4 h for breakthrough - less pain overall today - CT was negative for abscess - blood cx neg - catheter removed on 07/06, marked improvement in pain and redness daily packing wet to dry recommend wound clinic referral on discharge Phlebitis secondary to drug; doxycycline - this has improved - no doxy via IV route ESRD, started on HD on 07/07 - continue HD again on Sunday 07/09 - follows with Dr. Barreto DMII - insulin ISS - BSG ac hs HTN - continue amlodipine Hypothyroidism - continue levothyroxine DVt prophylaxis - heparin Plan: here today for Teflaro IV, plan for HD tomorrow, possible d/c tomorrow if ID okay with PO antibiotics and HD can be set up outpatient for Saturday evaluate for home nursing for wound care, referral to wound clinic Continued [facility] stay due to: other Discharge planning: uncertain
[2016-07-08 16:02] VITALS: BP 136/83; PULSE 59; TEMP 36.6; O2SAT 99
[2016-07-08] MEDS: ASPIRIN 325 MG ECTAB PO SCH (18:01)
[2016-07-08] MEDS: ATORVASTATIN 20 MG TAB PO SCH (18:02)
[2016-07-08] MEDS: AMLODIPINE BESYLATE 5 MG TAB PO SCH (18:02)
[2016-07-08] MEDS: MoRPHine SULFATE 10 MG/ML CARP/VIAL IV PRN (18:37)
[2016-07-08 20:00] VITALS: O2SAT 100
[2016-07-08] MEDS: ZOLPIDEM TARTRATE 5 MG TAB PO PRN (21:22)
[2016-07-09] VITALS (18 sets, daily range): BP systolic 115–145; BP diastolic 58–92; PULSE 55–84; TEMP 36.5–37.1; O2SAT 94–100
[2016-07-09 05:37] LABS: HEMATOCRIT 31.3 % (42-52); MEAN CELL VOLUME 87.2 fL (80-100); MEAN CORPUSCULAR HGB CONC 33.2 g/dl (32-36); MEAN PLATELET VOLUME 11.2 fL (7.4-10.4); PLATELET COUNT 200 K/uL (130-400); RED BLOOD COUNT 3.59 M/uL (4.7-6.1); WHITE BLOOD COUNT 7.96 K/uL (4.8-10.8)
[2016-07-09] MEDS: ACETAMINOPHEN 500 MG TAB PO SCH (06:00)
[2016-07-09] MEDS: LEVOTHYROXINE 50 MCG TAB PO SCH (06:21)
[2016-07-09 06:22] LABS: BUN/CREATININE RATIO 6.8 (10-20); CALCIUM 8.6 mg/dl (8.5-10.1); POTASSIUM 3.6 mmol/L (3.5-5.1)
[2016-07-09] MEDS: TAMSULOSIN HCL 0.4 MG CAP PO SCH (07:43)
[2016-07-09] MEDS: CALCITRIOL 0.25 MCG CAP PO SCH (07:43)
[2016-07-09] MEDS ORDERED: EPOETIN ALFA 4000 UNITS/ML VIAL IV SCH (09:00)
[2016-07-09] MEDS ORDERED: HEPARIN SOD (PORCINE) 1000 UNIT/ML 10 ML VIAL IV SCH (09:00)
[2016-07-09] MEDS: INSULIN ASPART 100 UNITS/ML 3 ML PEN SC SCH ×3 (09:14→16:30)
--- NOTE | 2016-07-09 10:04 | Anesthesiology Progress Note ---
Anesthesia Post Op Note Date & Time Jul 09, 2016 at 10:03 Vital Signs Pain Intensity: 0.0 Vital Signs Past 12 Hours Date Time Temp Pulse Resp B/P Pulse Ox O2 Delivery O2 Flow Rate FiO2 07/09/16 07:59 Room Air 07/09/16 07:32 36.5 55 16 135/79 96 Room Air 07/09/16 00:44 36.7 65 16 142/85 94 Room Air 07/09/16 00:00 100 Room Air Notes Mental Status: alert / awake / arousable, participated in evaluation Pt Amnestic to Procedure: Yes Nausea / Vomiting: adequately controlled Pain: adequately controlled Airway Patency, RR, SpO2: stable & adequate BP & HR: stable & adequate Hydration State: stable & adequate Anesthetic Complications: no major complications apparent
--- NOTE | 2016-07-09 10:09 | Progress Note ---
Progress Note Date of Service Jul 09, 2016. Progress Note Pt with ESRD, POD #3 after CAPD catheter removal d/t infection, seen in f/u today. Pt states feeling better, no new complaints CONST: A&O x4, NAD, obese, mildly chronically ill appearing male ABD: umbilical wound intact with marnie, lateral wound open, healing well. Minimal erythema, significantly less tenderness. PLAN: s/p CAPD catheter removal ESRD Continue ABX per ID. Continue wound dressing changes daily til healed. Pt to continue HD through [facility]. Can consider replacement of CAPD catheter in 4-6 weeks. Will see in office in 4 weeks with vein mapping to discuss replacement of CAPD catheter as well as AVF creation for backup access. Pt aware and agreeable.
--- NOTE | 2016-07-09 10:26 | Nephrology Progress Note ---
Nephrology Progress Note Date of Service Jul 09, 2016. Chief Complaint Follow up evaluation of this patient w/ ESRD admitted w/ nonfunctioning PD catheter and tunnel infection Subjective Mr. Hernandez was seen & examined in his hospital room this morning. He was admitted with a nonfunctioning PD catheter and a tunnel infection. PD catheter was removed, an IJ THC was placed and patient was started on HD 07/06/16. The patient currently denies fever or abdominal pain. He reports that his abdominal tunnel infection is greatly improved. Mr. Hernandez is scheduled for HD this morning. He is awaiting outpatient HD scheduling by [facility] [employer] ([facility]). He understands the need for outpatient creation of AVF. Review of Systems Constitutional: No fever Cardiovascular: No chest pain Respiratory: No dyspnea at rest Abdomen: No nausea, No pain, No vomiting Extremities: No leg edema A complete review of systems was performed. Pertinent positives are noted above. All other systems are negative. Vital Signs Last 8 Hrs Date Time Temp Pulse Resp B/P Pulse Ox O2 Delivery O2 Flow Rate FiO2 07/09/16 07:59 Room Air 07/09/16 07:32 36.5 55 16 135/79 96 Room Air I & O 24-Hour Column 07/09/16 08:00 Intake Total 1030 ml Output Total 2900 ml Balance -1870 ml Last Recorded Weight Weight (Kilograms): 107.400 Physical Exam General Appearance: no apparent distress Head: normocephalic Eyes: PERRL, EOMI Neck: supple, no adenopathy Respiratory/Chest: lungs clear, no respiratory distress Cardiovascular: regular rate, rhythm, no murmur Abdomen/GI: non tender, soft, + pertinent finding (small area or erythema surrounding surgical incision / old PD tunnel site) Extremities/Musculoskelatal: no calf tenderness, no pedal edema Neurologic/Psych: alert, oriented x 3 Family History Cancer Diabetes mellitus Heart disease Hypertension Kidney disease Kidney stones Social History Smoking Status: Never smoker Smokeless Tobacco Use: No Alcohol Use: none Drug Use: none Marital Status: Occupation: employed Laboratory Results Past 24 Hours 07/09/16 05:09 07/09/16 05:09 Test 07/08/16 11:45 07/08/16 16:36 07/08/16 19:47 07/09/16 05:09 Bedside Glucose 91 mg/dl (70-99) 91 mg/dl (70-99) 100 mg/dl (70-99) Red Blood Count 3.59 M/uL (4.7-6.1) Mean Corpuscular Volume 87.2 fL (80-100) Mean Corpuscular Hemoglobin 29.0 pg (25-34) Mean Corpuscular Hemoglobin Concent 33.2 g/dl (32-36) RDW Standard Deviation 50.1 fL (36.4-46.3) RDW Coefficient of Variation 15.7 % (11.5-14.5) Mean Platelet Volume 11.2 fL (7.4-10.4) Nucleated RBC Absolute Count (auto) 0.02 K/uL (0-0) Nucleated Red Blood Cells % 0.2 % Anion Gap 12.0 mmol/L (3-11) Est Creatinine Clear Calc Drug Dose 15.7 ml/min Estimated GFR () 9.5 Estimated GFR (Non- 8.2 BUN/Creatinine Ratio 6.8 (10-20) Calcium Level 8.6 mg/dl (8.5-10.1) Test 07/09/16 08:05 Bedside Glucose 87 mg/dl (70-99) Allergies Coded Allergies: Doxycycline (Verified Allergy, Severe, RASH, 07/05/16) phlebitis and pain with IV administration Penicillins (Verified Allergy, Mild, RASH, HIVES, ITCHING, 07/03/16) Medications Current Inpatient Medications Medications (Trade) Dose Ordered Sig/Leland Route Start Time Stop Time Status Last Admin Dose Admin Miscellaneous (Iv Fluids Completed) 1 ea PRN PRN N/A 07/03/16 13:00 07/03/17 12:59 Ergocalciferol (Vitamin D Cap) 50,000 interunit Q7D PO 07/08/16 08:00 08/07/16 07:59 07/08/16 08:42 50,000 INTERUNIT Levothyroxine Sodium (Synthroid Tab) 50 mcg DAILYBB PO 07/04/16 06:30 08/03/16 06:29 07/06/16 05:03 50 MCG Zolpidem Tartrate (Ambien Tab) 5 mg HS PRN PO 07/03/16 13:30 08/02/16 13:29 07/08/16 21:22 5 MG Clobetasol Propionate (Clobetasol Propionate Oint) 1 appln BID PRN EXT 07/03/16 13:30 08/02/16 13:29 Glucose (Glucose 40% Gel) 15-30 GRAMS 15 GRAMS... UD PRN PO 07/03/16 13:45 08/02/16 13:44 Glucose (Glucose Chew Tab) 4-8 Tablets 4 Tabl... UD PRN PO 07/03/16 13:45 08/02/16 13:44 Dextrose (Dextrose 50% 50ML Syringe) 25-50ML OF 50% DW IV FOR... UD PRN IV 07/03/16 13:45 08/02/16 13:44 Glucagon (Glucagon Inj) 1 mg UD PRN SQ 07/03/16 13:45 08/02/16 13:44 Calcitriol (Rocaltrol Cap) 0.25 mcg MoWeFr@0900 PO 07/04/16 09:00 08/03/16 08:59 07/04/16 07:46 0.25 MCG Morphine Sulfate (MoRPHine SULFATE INJ) 6 mg Q4 PRN IV 07/03/16 16:00 07/17/16 15:59 07/08/16 18:37 6 MG Acetaminophen (Tylenol Tab) 500 mg Q6 PO 07/03/16 18:00 08/02/16 17:59 07/08/16 23:48 500 MG Heparin Sodium (Porcine) (Heparin Sq 5000 Unit/0.5ml) 5,000 unit Q12 SQ 07/03/16 21:00 08/02/16 20:59 Future Hold 07/05/16 09:11 5,000 UNIT Menthol (Nice Anne) 1 anne PRN PRN PO 07/04/16 03:15 08/03/16 03:14 Insulin Aspart (novoLOG ASPART) SLIDING SCALE G... ACHS SC 07/04/16 22:00 08/03/16 21:59 07/08/16 08:49 7 UNITS Diphenhydramine HCl (Benadryl Cap) 25 mg Q6H PRN PO 07/05/16 02:15 08/04/16 02:14 07/05/16 20:45 25 MG Sodium Chloride ([place] Nasal [place]) 1 sprays PRN PRN NA 07/05/16 10:15 08/04/16 10:14 07/05/16 12:04 1 SPRAYS Miscellaneous Information 1 ea 1 ea UD PRN N/A 07/06/16 13:00 08/05/16 12:59 Ceftaroline Fosamil/Sodium Chloride (Teflaro Inj/Nss 100ml) 106.6667 ml @ 107 mls/hr Q12@0200,1400 IV 07/07/16 02:00 07/17/16 01:59 07/08/16 23:40 107 MLS/HR Hydromorphone HCl (Dilaudid Inj) 1 mg Q3H PRN IV 07/06/16 18:00 07/20/16 17:59 07/08/16 20:17 1 MG Amlodipine Besylate (Norvasc Tab) 10 mg DAILY@1800 PO 07/06/16 18:00 08/05/16 17:59 07/08/16 18:02 10 MG Aspirin (Ecotrin Tab) 325 mg DAILY@1800 PO 07/06/16 18:00 08/05/16 17:59 07/08/16 18:01 325 MG Atorvastatin Calcium (Lipitor Tab) 20 mg DAILY@1800 PO 07/06/16 18:00 08/05/16 17:59 07/08/16 18:02 20 MG Polyethylene (Miralax Powder Packet) 17 gm DAILY PRN PO 07/07/16 05:45 08/06/16 05:44 07/07/16 05:45 17 GM Tamsulosin HCl (Flomax Cap) 0.4 mg QAM PO 07/08/16 08:00 08/07/16 07:59 07/09/16 07:43 0.4 MG Heparin Sodium (Porcine) (Heparin Iv Bolus) 1,000 unit TODAY@0900 IV 07/09/16 09:00 07/09/16 23:59 Heparin Sodium (Porcine) (Heparin Iv Bolus) 1,000 unit TODAY@0800,0900,1000 IV 07/09/16 09:00 07/09/16 23:59 Epoetin Lazaro (Procrit Inj) 4,000 units TODAY@0900 IV 07/09/16 09:00 07/09/16 23:59 Impression (1) Chronic kidney disease, stage V (2) FSGS (focal segmental glomerulosclerosis) (3) Peritoneal dialysis catheter dysfunction (4) Tunnel infection (5) Cellulitis Mr. Sesar Hernandez is a 50 year-old male with obesity, nonalcoholic steatohepatitis, diabetes mellitus, hypothyroidism, FSGS, arteriolosclerosis and CKD V following nephrectomy for a localized RCC. He developed a tunnel infection of PD catheter. Catheter was removed 07/06/16. HD permcath placed . First dialysis treatment 07/07/16. Blood cultures negative. He has been started on ceftaroline. He has LUTs consistent with BPH. PSA obtained at [facility] on was 1.09. Tamsulosin added 07/07/16. Recommendations END STAGE RENAL DISEASE: -- HD scheduled for today. Orders in EMR reviewed. HD RN notified -- creative services director is arranging outpatient HD at [facility] -- Likely new PD catheter insertion after 6 weeks observation / free of infection ID: -- Antibiotics per ID BONE & MINERAL METABOLISM: -- Remains on calcitriol for CKD/MBD LUTS: -- Continue tamsulosin 0.4 mg daily OTHER: -- Ambulate. Order written
[2016-07-09] MEDS: ACETAMINOPHEN 325 MG TAB PO SCH ×2 (12:00→17:44)
--- NOTE | 2016-07-09 14:34 | Infectious Disease Progress Nt ---
Progress Note Date of Service Jul 09, 2016. Subjective Pt evaluation today including: conversation w/ patient, physical exam, chart review, lab review, review of studies, conversation w/ reimbursement consultant (Dr Barlow), review of inpatient medication list WBC count today was 7.96. Patient is s/p PD cath removal and placement of temporary HD cath. Noted that patient likely will have replacement of PD cath in 4-6 weeks per vascular. Deep culture growing Coag-negative staph with sensitivities pending. Blood cultures finalized with no growth. No new imaging. All Other Systems: Reviewed and Negative Medications Current Inpatient Medications Medications (Trade) Dose Ordered Sig/Leland Route Start Time Stop Time Status Last Admin Dose Admin Miscellaneous (Iv Fluids Completed) 1 ea PRN PRN N/A 07/03/16 13:00 07/03/17 12:59 Ergocalciferol (Vitamin D Cap) 50,000 interunit Q7D PO 07/08/16 08:00 08/07/16 07:59 07/08/16 08:42 50,000 INTERUNIT Levothyroxine Sodium (Synthroid Tab) 50 mcg DAILYBB PO 07/04/16 06:30 08/03/16 06:29 07/06/16 05:03 50 MCG Zolpidem Tartrate (Ambien Tab) 5 mg HS PRN PO 07/03/16 13:30 08/02/16 13:29 07/08/16 21:22 5 MG Clobetasol Propionate (Clobetasol Propionate Oint) 1 appln BID PRN EXT 07/03/16 13:30 08/02/16 13:29 Glucose (Glucose 40% Gel) 15-30 GRAMS 15 GRAMS... UD PRN PO 07/03/16 13:45 08/02/16 13:44 Glucose (Glucose Chew Tab) 4-8 Tablets 4 Tabl... UD PRN PO 07/03/16 13:45 08/02/16 13:44 Dextrose (Dextrose 50% 50ML Syringe) 25-50ML OF 50% DW IV FOR... UD PRN IV 07/03/16 13:45 08/02/16 13:44 Glucagon (Glucagon Inj) 1 mg UD PRN SQ 07/03/16 13:45 08/02/16 13:44 Calcitriol (Rocaltrol Cap) 0.25 mcg MoWeFr@0900 PO 07/04/16 09:00 08/03/16 08:59 07/04/16 07:46 0.25 MCG Morphine Sulfate (MoRPHine SULFATE INJ) 6 mg Q4 PRN IV 07/03/16 16:00 07/17/16 15:59 07/08/16 18:37 6 MG Heparin Sodium (Porcine) (Heparin Sq 5000 Unit/0.5ml) 5,000 unit Q12 SQ 07/03/16 21:00 08/02/16 20:59 Future Hold 07/05/16 09:11 5,000 UNIT Menthol (Nice Anne) 1 anne PRN PRN PO 07/04/16 03:15 08/03/16 03:14 Insulin Aspart (novoLOG ASPART) SLIDING SCALE G... ACHS SC 07/04/16 22:00 08/03/16 21:59 07/08/16 08:49 7 UNITS Diphenhydramine HCl (Benadryl Cap) 25 mg Q6H PRN PO 07/05/16 02:15 08/04/16 02:14 07/05/16 20:45 25 MG Sodium Chloride (Miner Nasal Sugarloaf) 1 sprays PRN PRN NA 07/05/16 10:15 08/04/16 10:14 07/05/16 12:04 1 SPRAYS Miscellaneous Information 1 ea 1 ea UD PRN N/A 07/06/16 13:00 08/05/16 12:59 Ceftaroline Fosamil/Sodium Chloride (Teflaro Inj/Nss 100ml) 106.6667 ml @ 107 mls/hr Q12@0200,1400 IV 07/07/16 02:00 07/17/16 01:59 07/08/16 23:40 107 MLS/HR Hydromorphone HCl (Dilaudid Inj) 1 mg Q3H PRN IV 07/06/16 18:00 07/20/16 17:59 07/08/16 20:17 1 MG Amlodipine Besylate (Norvasc Tab) 10 mg DAILY@1800 PO 07/06/16 18:00 08/05/16 17:59 07/08/16 18:02 10 MG Aspirin (Ecotrin Tab) 325 mg DAILY@1800 PO 07/06/16 18:00 08/05/16 17:59 07/08/16 18:01 325 MG Atorvastatin Calcium (Lipitor Tab) 20 mg DAILY@1800 PO 07/06/16 18:00 08/05/16 17:59 07/08/16 18:02 20 MG Polyethylene (Miralax Powder Packet) 17 gm DAILY PRN PO 07/07/16 05:45 08/06/16 05:44 07/07/16 05:45 17 GM Tamsulosin HCl (Flomax Cap) 0.4 mg QAM PO 07/08/16 08:00 08/07/16 07:59 07/09/16 07:43 0.4 MG Heparin Sodium (Porcine) (Heparin Iv Bolus) 1,000 unit TODAY@0900 IV 07/09/16 09:00 07/09/16 23:59 Heparin Sodium (Porcine) (Heparin Iv Bolus) 1,000 unit TODAY@0800,0900,1000 IV 07/09/16 09:00 07/09/16 23:59 Epoetin Lazaro (Procrit Inj) 4,000 units TODAY@0900 IV 07/09/16 09:00 07/09/16 23:59 Acetaminophen (Tylenol Tab) 650 mg Q4HWA PO 07/09/16 12:00 08/08/16 11:59 Objective Vital Signs Date Time Temp Pulse Resp B/P Pulse Ox O2 Delivery O2 Flow Rate FiO2 07/09/16 07:59 Room Air 07/09/16 07:32 36.5 55 16 135/79 96 Room Air 07/09/16 00:44 36.7 65 16 142/85 94 Room Air 07/09/16 00:00 100 Room Air 07/08/16 20:00 100 Room Air 07/08/16 16:02 36.6 59 17 136/83 99 Room Air 07/08/16 16:00 Room Air Physical Exam General Appearance: no apparent distress, + obese Eyes: normal inspection, sclerae normal ENT: hearing grossly normal Neck: supple, trachea midline Respiratory/Chest: no respiratory distress, no accessory muscle use Cardiovascular: regular rate, rhythm Abdomen: + tenderness (lower abdominal tenderness. Large dressing in place. C/D /I) Extremities: normal range of motion Neurologic/Psychiatric: alert, normal mood/affect Skin: warm/dry, no rash, + pertinent finding (Some mild bruising of the lower abdomen) Laboratory Results Item Value Date Time Gram Stain - Final Resulted 07/06/16 1112 Drainage-Deep Abdomen Gram Stain - Final Complete 07/05/16 1005 Drainage - Surface Abdomen Blood Culture - Final Complete 07/03/16 1000 Blood NO GROWTH Blood Culture - Final Complete 07/03/16 0835 Blood NO GROWTH RUN DATE: 07/09/16 [facility] PAGE 1 RUN TIME: 1145 Specimen Inquiry PATIENT: EBONIDAMIEN Low LOC: [id number] U # : [id number] AGE/SX: 50/M ROOM: [facility] REG : 07/03/[address]: Finn Winston, : 1965 BED: 1 DIS : STATUS: ADM IN TLOC: SPEC #: [id number] NIKHIL: 07/06/16 STATUS: RES REQ #: [id number] RECD: 07/06/[address]: Deni Mills D.ONeha SOURCE: DRAIN-DEEP ENTR: 07/06/16-[address]: Mag Granados , EVENS-Shyam SPDESC: Brenda Mera MD Pro,Stephanie Barry Ryan, D.O. Roe, Kevin, D.O. ORDERED: AER/ASIM CULTSMR COMMENTS: SOURCE IS CULTURE FROM ABDOMEN ALONG WITH CAPD TIP FROM ABDOMEN. Procedure Result Verified Site GRAM STAIN Final 07/06/16-1442 RESULT NO WBCs SEEN FEW GRAM POSITIVE COCCI OR AER/ASIM CULT Preliminary 07/09/16-1145 Organism 1 COAG NEG STAPHYLOCOCCUS QUANITY MANY SENS SENSITIVITY TO FOLLOW MYRANDA NO ANAEROBES ISOLATED. Last 24 Hours Test 07/08/16 16:36 07/08/16 19:47 07/09/16 05:09 07/09/16 08:05 Bedside Glucose 91 mg/dl 100 mg/dl 87 mg/dl White Blood Count 7.96 K/uL Red Blood Count 3.59 M/uL Hemoglobin 10.4 g/dL Hematocrit 31.3 % Mean Corpuscular Volume 87.2 fL Mean Corpuscular Hemoglobin 29.0 pg Mean Corpuscular Hemoglobin Concent 33.2 g/dl RDW Standard Deviation 50.1 fL RDW Coefficient of Variation 15.7 % Platelet Count 200 K/uL Mean Platelet Volume 11.2 fL Nucleated RBC Absolute Count (auto) 0.02 K/uL Nucleated Red Blood Cells % 0.2 % Sodium Level 144 mmol/L Potassium Level 3.6 mmol/L Chloride Level 108 mmol/L Carbon Dioxide Level 24 mmol/L Anion Gap 12.0 mmol/L Blood Urea Nitrogen 48 mg/dl Creatinine 7.00 mg/dl Est Creatinine Clear Calc Drug Dose 15.7 ml/min Estimated GFR () 9.5 Estimated GFR (Non- 8.2 BUN/Creatinine Ratio 6.8 Random Glucose 87 mg/dl Calcium Level 8.6 mg/dl Test 07/09/16 11:45 Bedside Glucose 92 mg/dl Assessment and Plan Patient with abdominal wall cellulitis and probable infected PD catheter. Cultures growing coag-negative staph only. Sensitivities pending. Patient is currently on IV Ceftaroline and appears to have improvement over the weekend. He is hoping for D/C home. Feel that this patient does need continued broad spectrum abx therapy, and therefore could transition to PO Zyvox 600 mg q 12 hours (with dose after dialysis on dialysis days) and PO Cipro 500 mg daily ( also after dialysis on dialysis days) x 2 weeks. He will need re-evaluation prior to discontinuation of therapy. Recommend continued wound care as an outpatient as well. We will follow up as outpatient. Plan: 1. Transition to PO Zyvox and PO Cipro x 2 weeks (at least)- doses above 2. F/U with ID in 1 week 3. Wound care PROVIDER ADDENDUM: Patient reviewed with Ms. Granados. Agree with above assessment.
[2016-07-09] MEDS ORDERED: FLM4 PO (15:06)
--- NOTE | 2016-07-09 15:08 | Discharge Instructions ---
Discharge Instructions Date of Service Jul 09, 2016. Admission Reason for Admission: Cellulitis, Fever Discharge Discharge Diagnosis / Problem: Abdominal wall cellulitis and probable infected peritoneal dialysis cathete Discharge Goals Goal(s): Decrease discomfort, Improve disease control Activity Recommendations Activity Limitations: resume your previous activity . Instructions / Follow-Up Instructions / Follow-Up You were admitted to [facility] for abdominal wall cellulitis and probable infected peritoneal dialysis catheter. You were treated with IV antibiotics and managed by the Infectious Disease team. This is being transitioned to oral Zyvox and ciprofloxacin on discharge (dose to be taken after dialysis on dialysis days). You were taught how to change the dressings for the peritoneal catheter, please do this once daily. Please follow up with the Infectious Disease team in 1 week after discharge. Your peritoneal catheter was removed by Dr Lozoya and a right internal jugular Perm Catheter was placed on 07/06/16. You will follow up with vascular surgery in the office in 4 weeks with vein mapping to discuss replacement of CAPD catheter as well as arteriovenous fistula creation for backup access. You were evaluated by nephrology (Dr Barreto) who recommended hemodialysis for end stage kidney failure which started on 07/06/16. This will be continued on discharge at [facility] in [place] (see below) starting tomorrow (07/10) and continuing on Tuesdays, and Saturdays at 11:00am. Please arrove for your first treatment at 10:20am. [address] [address] Current Hospital Diet Patient's current hospital diet: Regular Diet Discharge Diet Recommended Diet: Renal Diet Procedures Procedures Performed: Insertion of Perm Catheter, Right Internal Jugular Approach, Ultrasound Localization of Right Internal Jugular Vein, Fluoroscopy for Comfirmation, Peritoneal Dialysis (CAPD) Catheter Removal. Pending Studies Studies pending at discharge: no Laboratory Results Hemoglobin A1c Test 07/05/16 06:20 Range/Units Estimated Average Glucose 140 mg/dl Hemoglobin A1c 6.5 H 4.5-5.6 % Medical Emergencies . Who to Call and When: Medical Emergencies: If at any time you feel your situation is an emergency, please call 911 immediately. . Non-Emergent Contact Non-Emergency issues call your: Primary Care Provider . . "Provider Documentation" section prepared by Gualberto Barlow. VTE Core Measure Inpt VTE Proph given/why not?: Unfractionated heparin SQ
[2016-07-09] MEDS: HEPARIN SOD (PORCINE) 1000 UNIT/ML 10 ML VIAL IV SCH ×2 (15:15→16:00)
[2016-07-09] MEDS ORDERED: OXYC1TAB3 PO (16:39)
[2016-07-09] MEDS ORDERED: ACET-1256 PO (16:41)
--- NOTE | 2016-07-09 17:11 | Discharge Summary ---
Discharge Summary Date of Service Jul 09, 2016. (Gualberto Barlow MD) Discharge Summary Admission Date: Jul 03, 2016 at 13:25 Discharge Date: Jul 09, 2016 Discharge Disposition: Home Principal Diagnosis: abdominal wall cellulitis Problems/Secondary Diagnoses: Probable infected peritoneal dialysis catheter End stage renal disease on hemodialysis Procedures: Insertion of Perm Catheter, Right Internal Jugular Approach, Ultrasound Localization of Right Internal Jugular Vein, Fluoroscopy for Confirmation, Peritoneal Dialysis (CAPD) Catheter Removal. Consultations: Nephrology Vascular Surgery (Gualberto Barlow MD) Medication Reconciliation New Medications: Ciprofloxacin Tab (Cipro) 250 Mg Tab 2 TAB PO DAILY for 14 Days, #28 TAB Linezolid (Zyvox) 600 Mg Tab 600 MG PO Q12 for 14 Days, #28 TAB Oxycodone Immediate Rel Tab (Roxicodone Ir) 5 Mg Tab 5 MG PO Q6H PRN for Pain for 7 Days, #30 TAB Tamsulosin Hcl (Flomax) 0.4 Mg Cap 1 CAP PO DAILY for 30 Days, #30 CAP 5 Refills Changed Medications: Acetaminophen (Tylenol) 500 Mg Tab 650 MG PO Q6 PRN for Pain for 30 Days, #156 TAB (Changed from: 500 MG) Continued Medications: Amlodipine (Norvasc) 10 Mg Tab 10 MG PO HS Aspirin (Aspirin Ec) 325 Mg Tab 325 MG PO HS Atorvastatin (Atorvastatin Calcium) 20 Mg Tab 1 TAB PO HS Calcitriol (Rocaltrol Cap) 0.25 Mcg Cap 0.25 MCG PO Q2D Clobetasol Propionate 0.05% (Temovate 0.05%) Cr 1 APPLN EXT BID PRN for PRN, CR Ergocalciferol (Vitamin D 57827 Unit) 50,000 Unit Cap 46612 UNIT PO WK, CAP Levothyroxine Sodium (Levothyroxine Sodium) 50 Mcg Tab 1 TAB PO QAM for 90 Days, #90 TAB 3 Refills Zolpidem Tartrate (Ambien) 5 Mg Tab 5 MG PO HS PRN for Insomnia Discontinued Medications: Insulin Glargine (Lantus) 100 Unit/Ml Inj 24 UNITS SC HS Insulin Glulisine (Apidra Solostar) 100 Units/Ml Inj 4 UNITS SC TIDM +SLIDING SCALE Torsemide (Demadex) 100 Mg Tab 100 MG PO QAM Discharge Exam Patient was upset about moving rooms overnight after having his zolpidem and dilaudid. Reports he was made to walk while he was feeling not completely with it. He does not want to be in the same situation again therefore refusing pain medications this morning. He reports having 8/10 pain in his abdomen on movement but it is tolerable at rest. All systems reviewed and otherwise acutely negative Review of Systems: Constitutional: No chills, No fever Respiratory: No shortness of breath Cardiovascular: No chest pain Abdomen: + pain (lower abdominal pain especially around catheter site, no rebound or guarding), No GI bleeding, No constipation, No diarrhea, No nausea, No vomiting Genitourinary - Male: No dysuria, No hematuria, No urinary frequency Hematologic / Lymphatic: No abnormal bleeding/bruising Integumentary: No itch, No rash (Gualberto Barlow MD) Hospital Course Mr Hernandez is a 50 year old male admitted to [facility] for abdominal wall cellulitis and probable infected peritoneal dialysis catheter. Treated with IV ceftaroline and managed by the Infectious Disease team. Transitioned to Zyvox and ciprofloxacin on discharge (dose to be taken after dialysis on dialysis days). His dressing is to be changed daily and he refused home nursing for this as felt he could manage himself. He will follow up with the Infectious Disease team approximately 1 week after discharge. His peritoneal catheter was removed by Dr Lozoya and a right internal jugular Perm Catheter was placed on 07/06/16. He will follow up with vascular surgery in the office in 4 weeks with vein mapping to discuss replacement of CAPD catheter as well as arteriovenous fistula creation for backup access. He was evaluated by nephrology (Dr Barreto) who recommended hemodialysis for end stage kidney failure which started on 07/06/16. This will be continued on discharge at [facility] (see below) starting tomorrow (07/10) and continuing on Tuesdays, and Saturdays at 11:00am. Total Time Spent: Greater than 30 minutes This includes examination of the patient, discharge planning, medication reconciliation, and communication with other providers. (Gualberto Barlow MD) Discharge Instructions Please refer to the electronic Patient Visit Report (Discharge Instructions) for additional information. (Gualberto Barlow MD) Follow-Up [facility] (see below) starting tomorrow (07/10) and continuing on Tuesdays, and Saturdays at 11:00am. Follow up with nephrology; to be arranged (Gualberto Barlow MD) Additional Copies To Harshad Hare M.D.; Xander Barreto D.O.; Hunter Lozoya M.D. History Resident Physician Supervision Note: I was present with Dr. Barlow during the history and exam. I discussed the case with the resident and agree with the findings and plan as documented in the note. Any exceptions or clarifications are listed here. Pt seen and examined at bedside. Pain well controlled at present and deferring pain medication 2/2 avoidance of decreased awareness. Reports no f/c, n/v/d/c, [place]. (Finn Winston MD) General Appearance: WD/WN, no apparent distress Cardiovascular: normal peripheral pulses, regular rate, rhythm, no murmur, other (trace b/l LE edema) Gastrointestinal: normal bowel sounds, guarding, tenderness (diffusely, worse kary-HD site), other (dressing present and in place) Skin Characteristics: normal color, warm/dry (Finn Winston MD) Assessment/Plan 50 y/o male h/o ESRD on HD, DMII, HTN w/ PD catheter site infection PD catheter site cellulitis - tolerated IV teflaro well, ID recommendations appreciated - will transition to PO cipro and zyvox at home for complete course , f/u w/ wound care ESRD on HD - nephrology recommendations appreciated - HD done 3, scheduled EOD for . DMII - resume outpatient DMII regimen HTN - continue amlodipine Hypothyroidism - continue synthroid (Finn Winston MD) Resident Tracking Resident Involvement: Resident Care Provided Care Provided: Adult Hospital Medicine (Gualberto Barlow MD)
[2016-07-09] MEDS ORDERED: CIPR1TAB11 PO (17:21)
[2016-07-09] MEDS ORDERED: LINE1TAB6 PO (17:21)
[2016-07-09] MEDS ORDERED: TAMS0.4C38 PO (17:23)
[2016-07-09] MEDS: SODIUM CHLORIDE 0.9% IV SCH (17:43)
[2016-07-09] MEDS: CEFTAROLINE FOSAMIL IV SCH (17:43)
[2016-07-09] MEDS: ATORVASTATIN 20 MG TAB PO SCH (17:45)
[2016-07-09] MEDS: ASPIRIN 325 MG ECTAB PO SCH (17:45)
[2016-07-09] MEDS: AMLODIPINE BESYLATE 5 MG TAB PO SCH (17:49)
[2016-08-13] MEDS ORDERED: TAMS0.4C38 PO (12:28)
[2016-08-17] MEDS ORDERED: OXYC-57 PO (15:34)
== END 2016-07-09 20:00 | disposition home or self-care (01) | DRG 853 ==
LOC: ENRESERVTM → CANRESERV → ENRESERVDT → C.EDB 09:09 → C.MS4W 11:46 → OBSVTOIN 13:25 → C.MS4W 07-08 22:07
PROVIDERS: ADMIT Family Medicine; ATTEND Family Medicine
PROC: 05HM33Z Insertion of Infusion Device into Right Internal Jugular Vein, Percutaneous Approach (ICD-10-PCS; principal; 2016-07-06 09:30)
PROC: 0WPG30Z Removal of Drainage Device from Peritoneal Cavity, Percutaneous Approach (ICD-10-PCS; principal; 2016-07-06 09:30)
PROC: B543ZZA Ultrasonography of Right Jugular Veins, Guidance (ICD-10-PCS; principal; 2016-07-06 09:30)
DX: A41.02 Sepsis due to Methicillin resistant Staphylococcus aureus (principal); N18.6 End stage renal disease; L03.311 Cellulitis of abdominal wall; I12.0 Hypertensive chronic kidney disease with stage 5 chronic kidney disease or end stage renal disease; T82.7XXA Infection and inflammatory reaction due to other cardiac and vascular devices, implants and grafts, initial encounter; E11.22 Type 2 diabetes mellitus with diabetic chronic kidney disease; Z99.2 Dependence on renal dialysis; E03.9 Hypothyroidism, unspecified; K75.81 Nonalcoholic steatohepatitis (NASH); E66.9 Obesity, unspecified; Z68.32 Body mass index [BMI] 32.0-32.9, adult; G47.33 Obstructive sleep apnea (adult) (pediatric); E78.00 Pure hypercholesterolemia, unspecified; Z85.528 Personal history of other malignant neoplasm of kidney; N40.0 Benign prostatic hyperplasia without lower urinary tract symptoms; Y83.2 Surgical operation with anastomosis, bypass or graft as the cause of abnormal reaction of the patient, or of later complication, without mention of misadventure at the time of the procedure

== ENCOUNTER → 2016-07-23 | Outpatient (CLI) | payer OTHER ==
[~2016-07-23] MED LIST changes: -APDI SC; +ASPI325T39 PO; -ASPI81TA28 PO; +CALC667C; +CIPR1TAB11 PO; -INSDGI SC; +LINE1TAB6 PO; +LSN5 PO; +OXYC-57 PO; +TAMS0.4C38 PO; -TORS100T13 PO
[2016-07-23 12:40] LABS: BASO ABS # 0.06 K/uL (0-0.2); COMPLETE YES; EOS % 6.3 %; HEMATOCRIT 32.9 % (42-52); IG% 0.5 %; LYMPH % 21.3 %; LYMPH ABS # 1.29 K/uL (1.2-3.4); MEAN CELL VOLUME 87.5 fL (80-100); MEAN CORPUSCULAR HEMOGLOBIN 28.5 pg (25-34); MEAN CORPUSCULAR HGB CONC 32.5 g/dl (32-36); MEAN PLATELET VOLUME 11.3 fL (7.4-10.4); MONO % 7.6 %; NEUT % 63.3 %; PLATELET COUNT 263 K/uL (130-400); RED BLOOD COUNT 3.76 M/uL (4.7-6.1); WHITE BLOOD COUNT 6.06 K/uL (4.8-10.8)
[2016-07-23 14:53] LABS: ALKALINE PHOSPHATASE 86 U/L (45-117); ALT/SGPT 46 U/L (12-78); AST/SGOT 23 U/L (15-37); BLOOD UREA NITROGEN 36 mg/dl (7-18); BUN/CREATININE RATIO 4.7 (10-20); C-REACTIVE PROTEIN 1.58 mg/dl (0-0.29); CALCIUM 9.5 mg/dl (8.5-10.1); CARBON DIOXIDE 25 mmol/L (21-32); CHLORIDE 105 mmol/L (98-107); GLUCOSE 106 mg/dl (70-99); SODIUM 141 mmol/L (136-145)
[2016-07-23 15:01] LABS: ALB/GLOB RATIO 1.1 (0.9-2)
== END | disposition home or self-care (01) ==
LOC: C.LAB1850 11:05
PROVIDERS: ATTEND Physician Assistant
DX: T82.7XXA Infection and inflammatory reaction due to other cardiac and vascular devices, implants and grafts, initial encounter (principal); Y84.1 Kidney dialysis as the cause of abnormal reaction of the patient, or of later complication, without mention of misadventure at the time of the procedure; L03.311 Cellulitis of abdominal wall; B95.7 Other staphylococcus as the cause of diseases classified elsewhere

== ENCOUNTER → 2016-08-03 | Outpatient (CLI) | payer OTHER ==
[~2016-08-03] MED LIST changes: -CIPR1TAB11 PO; -LINE1TAB6 PO
[2016-08-03 11:51] LABS: HEMATOCRIT 37.7 % (42-52); MEAN CORPUSCULAR HEMOGLOBIN 29.1 pg (25-34); MEAN CORPUSCULAR HGB CONC 32.4 g/dl (32-36); MEAN PLATELET VOLUME 11.3 fL (7.4-10.4); PLATELET COUNT 201 K/uL (130-400); RED BLOOD COUNT 4.19 M/uL (4.7-6.1); WHITE BLOOD COUNT 6.92 K/uL (4.8-10.8)
[2016-08-03 12:23] LABS: ALB/GLOB RATIO 1.1 (0.9-2); ALKALINE PHOSPHATASE 85 U/L (45-117); ALT/SGPT 44 U/L (12-78); AST/SGOT 18 U/L (15-37); BASO ABS # 0.06 K/uL (0-0.2); BASOPHIL % 0.9 % (0-2); BLOOD UREA NITROGEN 20 mg/dl (7-18); BUN/CREATININE RATIO 3.3 (10-20); C-REACTIVE PROTEIN 1.16 mg/dl (0-0.29); CALCIUM 9.3 mg/dl (8.5-10.1); CARBON DIOXIDE 32 mmol/L (21-32); CHLORIDE 104 mmol/L (98-107); COMPLETE YES; EOSINOPHIL % 6.3 %; GLUCOSE 120 mg/dl (70-99); LYMPH ABS # 0.99 K/uL (1.2-3.4); LYMPHOCYTE % 14.3 %; META ABS # 0.06 K/uL (0-0); METAMYELOCYTE % 0.9 %; NEUTROPHILS % 73.1 %; SODIUM 141 mmol/L (136-145)
== END | disposition home or self-care (01) ==
LOC: C.LABPBG 08:32
PROVIDERS: ATTEND Physician Assistant
DX: T82.7XXA Infection and inflammatory reaction due to other cardiac and vascular devices, implants and grafts, initial encounter (principal); Y84.1 Kidney dialysis as the cause of abnormal reaction of the patient, or of later complication, without mention of misadventure at the time of the procedure

== ENCOUNTER → 2016-08-13 | Outpatient (CLI) | payer OTHER ==
[2016-08-13 20:03] LABS: BLOOD UREA NITROGEN 34 mg/dl (7-18); BUN/CREATININE RATIO 4.5 (10-20); CALCIUM 9.3 mg/dl (8.5-10.1); CARBON DIOXIDE 26 mmol/L (21-32); CHLORIDE 105 mmol/L (98-107); GLUCOSE 94 mg/dl (70-99); MAGNESIUM 2.4 mg/dl (1.8-2.4); PHOSPHORUS 4.9 mg/dl (2.5-4.9); POTASSIUM 3.9 mmol/L (3.5-5.1); SODIUM 142 mmol/L (136-145)
== END | disposition home or self-care (01) ==
LOC: C.LABPBG 15:15
PROVIDERS: ATTEND Internal Medicine Nephrology
DX: R51 Headache (principal)

== ENCOUNTER 2016-08-17 10:33 | Day surgery (SDC) | payer OTHER ==
[2016-08-13 13:20] VITALS: BMI 31.0
[~2016-08-17] VITALS: Ht 182.9 cm; Wt 105.5 kg
--- NOTE | 2016-08-17 08:27 | History and Physical ---
History & Physical Date of Service August 17, 2016. History & Physical Chief Complaint End stage renal disease History of Present Illness The patient is a 50 year old male with ESRD, who previously had buried CAPD catheter placed in 09/28, then underwent externalization and developed an infected CAPD catheter. This was removed. He now is admitted for replacement of his CAPD catheter and creation of left wrist av fistula Allergies Coded Allergies: Penicillins (Verified Allergy, Mild, RASH, HIVES, ITCHING, 07/03/16) Home Medications Scheduled Amlodipine (Norvasc), 10 MG PO HS Aspirin (Aspirin Ec), 325 MG PO HS Atorvastatin (Atorvastatin Calcium), 1 TAB PO HS Calcitriol (Rocaltrol Cap), 0.25 MCG PO Q2D Ergocalciferol (Vitamin D 00190 Unit), 50,000 UNIT PO WK Insulin Glargine (Lantus), 24 UNITS SC HS Insulin Glulisine (Apidra Solostar), 4 UNITS SC TIDM Levothyroxine Sodium (Levothyroxine Sodium), 1 TAB PO QAM Torsemide (Demadex), 100 MG PO QAM Scheduled PRN Acetaminophen (Tylenol), 500 MG PO Q6 PRN for Pain Clobetasol Propionate 0.05% (Temovate 0.05%), 1 APPLN EXT BID PRN for PRN Zolpidem Tartrate (Ambien), 5 MG PO HS PRN for Insomnia Problem List Medical Problems: (1) Abdominal pain (2) Benign hypertension (3) Cellulitis (4) Chronic kidney disease, stage V (5) Fever (6) FSGS (focal segmental glomerulosclerosis) (7) Hyperglycemia (8) Hypothyroidism (9) Leukocytosis (10) Peritoneal dialysis catheter dysfunction (11) R index finger surgery (12) Tunnel infection (13) Vision loss Surgical / Medical History Hx Cardiac Surgery: Yes (HEART CATH, NO STENT) Hx Abdominal Surgery: Yes (PERITONEAL DIALYSIS CATHETER PLACEMENT) Hx Cancer Surgery: Yes Hx Thoracic Surgery: No Hx Orthopedic: No Hx Urinary Tract Surgery: Yes (LEFT NEPHRECTOMY) Past Medical/Surgical History: Diabetes, High Cholesterol, Hypertension, Kidney Disease, Thyroid Disease Family History Cancer Diabetes mellitus Heart disease Hypertension Kidney disease Kidney stones Social History Smoking Status: Never Smoker Hx Tobacco Use In Past Year?: No Hx Alcohol Use - Type & Amnt: No Hx Substance Use -Type & Amnt: No Review of Systems Constitutional: + malaise, No chills Skin: + change in color Eyes: No visual changes ENMT: No sore throat Respiratory: No CANNON, No cough, No hemoptysis, No short of breath Cardiovascular: No chest pain, No edema, No intermittent claudication, No palpitations, No syncope Gastrointestinal: No nausea, No vomiting Neurologic: No dizziness, No headache, No lethargy, No numbness, No tingling Physical Exam Constitutional: General Apperance: well-nourished, well-developed, obese Level of Distress: NAD Psychiatric: Mental Status: active & alert, normal mood, normal affect Orientation: oriented except where noted, to time, to place, to person Memory: recent memory normal, remote memory normal Head: normocephalic, atraumatic Eyes: EOM: EOMI ENMT: normal ENT inspection, hearing grossly normal Neck: supple, trachea midline Lungs: Respiratory effort: no dyspnea Auscultation: no wheezing, no rales/crackles, no rhonchi, normal breath sounds Cardiovascular: Apical Impulse: not displaced Heart Auscultation: RRR, no rubs, no gallops Peripheral Pulses: Pulses: full and equal, in all extremities except if noted Bruits: none appreciated Carotid Pulse: normal on the left, normal on the right Brachial Pulses: normal on the left, normal on the right Radial Pulse: normal on the left, normal on the right Femoral Pulse: normal on the left, normal on the right Posterior Tibialis Pulse: decreased on the left, decreased on the right Dorsalis Pedis Pulse: decreased on the left, decreased on the right Abdomen: Bowel Sounds: normal Inspection & Palpation: soft, no tenderness Musculoskeletal: normal strength (5/5 throughout), normal tone Extremities: Upper Right: no cyanosis, no edema, no varicosities, no palpable cord, no clubbing, no ulcers, no mottling Upper Left: no cyanosis, no edema, no palpable cord, no clubbing, no ulcers , no mottling Lower Right: no cyanosis, no varicosities, no edema Lower Left: no cyanosis, no varicosities, no edema Neurologic: Cranial Nerves: grossly intact Assessment and Plan ASSESSMENT and PLAN: ESRD Plan: Patient is admitted for creation of a left wrist av fistula and re insertion of his CAPD catheter with laparoscopic assistance. I have discussed the risks options and benefits of the procedure with the patient. The patient understands the risks options and benefits and agrees to the procedure.
[~2016-08-17 10:33] MED LIST changes: -ACET-1256 PO; +ATROPINE SULFATE 0.1 MG/ML 5ML SYR IV PRN; -CALC0.2510 PO; -CALC667C; +CLINDAMYCIN 600 MG/54 ML D5W IV SCH; -ERGO500037 PO; +EpHEDrine SULFATE INJ 50 MG/ML AMP IV PRN; +HYDROmorphone INJ 0.5 MG/0.5 ML SYR IV PRN; +LABETALOL HCL IV 5 MG/ML 20ML IV PRN; -LSN5 PO; +MEPERIDINE HCL 25 MG/ML CARP IV PRN; +ONDANSETRON INJ 2 MG/ML 2 ML VIAL IV PRN; -OXYC-57 PO; +SODIUM CHLORIDE 0.9% 1000ML 1,000 ML IV SCH
[2016-08-17] MEDS ORDERED: CALC667C (10:52)
[2016-08-17] MEDS ORDERED: ERGO500037 PO (10:52)
[2016-08-17 10:56] VITALS: BP 141/94; PULSE 59; TEMP 36.6; O2SAT 97; Ht 182.9 cm; Wt 105.5 kg
[2016-08-17] MEDS ORDERED: THROMBIN FOR SOLN 20000 UNIT KIT ONE (11:34)
[2016-08-17] MEDS ORDERED: GELATIN SPONGE 12-7MM ONE (11:34)
[2016-08-17] MEDS ORDERED: HEPARIN SOD (PORCINE) 1000 UNIT/ML 10 ML VIAL ONE (11:35)
[2016-08-17] MEDS ORDERED: LIDOCAINE HCL 1% 20 ML VIAL ONE (11:35)
[2016-08-17] MEDS ORDERED: MIDAZOLAM HCL 1 MG/ML 2ML VIAL ONE (11:40)
[2016-08-17] MEDS ORDERED: FENTANYL CITRATE INJ 50 MCG/1 ML 2 ML VIAL ONE ×5 (11:41→16:37)
[2016-08-17 11:51] LABS: BUN/CREATININE RATIO 4.4 (10-20); CALCIUM 8.7 mg/dl (8.5-10.1); CREATININE 5.9 mg/dl (0.60-1.40); POTASSIUM 4.1 mmol/L (3.5-5.1)
[2016-08-17] MEDS ORDERED: LIDOCAINE HCL 2% 2 ML VIAL (20MG/ML) ONE ×2 (12:38→12:40)
[2016-08-17] MEDS ORDERED: DEXAMETHASONE SOD INJ 4 MG/ML VIAL ONE (12:38)
[2016-08-17] MEDS ORDERED: ONDANSETRON INJ 2 MG/ML 2 ML VIAL ONE (12:38)
[2016-08-17] MEDS ORDERED: CISATRACURIUM BESYLATE IV SOLN 2 MG/ML 10 ML VIAL ONE (12:38)
[2016-08-17] MEDS ORDERED: PROPOFOL IV EMULSION 10 MG/ML 20 ML VIAL IV ONE ×3 (12:38→12:50)
[2016-08-17] MEDS: BUPIVACAINE 0.5 % 5 MG/1 ML MPF 30ML VIAL ONE ×2 (12:58→13:15)
[2016-08-17] MEDS ORDERED: GLYCOPYRROLATE INJ 0.2 MG/ML VIAL ONE (12:59)
[2016-08-17] MEDS ORDERED: NEOSTIGMINE METHYLSULFATE 5 MG/5 ML SYR ONE (12:59)
[2016-08-17] MEDS: BUPIVACAINE/EPINEPHRINE 0.5% MPF 1:200,000 30 ML VIAL ONE ×2 (13:07→15:27)
--- NOTE | 2016-08-17 13:40 | OPERATIVE REPORT ---
DATE OF OPERATION: 08/17/2016 PREOPERATIVE DIAGNOSIS: Renal failure. POSTOPERATIVE DIAGNOSIS: Same. PROCEDURE: Laparoscopic assisted peritoneal dialysis catheter placement. SURGEON: Dr. Lyon and Dr. Lozoya. SUMMARY: After induction of adequate general anesthesia, the patient's abdomen was prepped with Betadine solution and properly draped. We made a small incision supraumbilically about an inch or so deepened through subcutaneous tissue onto the abdominal wall fascia, which we were able to control with Kochers elevating small incision was made in the fascia sufficient enough to place 0 Vicryl sutures and under direct visualization we entered the peritoneal cavity. At this point, a 5 mm trocar was used to control the pneumoperitoneum with the stay sutures. CO2 insufflated. At this point we then looked in the abdomen, there were no really adhesions appreciated. I placed a 5 mm right upper quadrant port with preemptive local analgesia 1% Xylocaine without epinephrine, then I used a 5 mm midline port 5 mm. Initially thought about placing the catheter into the initial incision in the supraumbilical area. We brought up the Tracker catheter 65 cm and put in there and it really did not fit long enough to go down the pelvis. We at this point then elected to place another incision infraumbilically inferior to the incision that he had had from previous placement, small incision was made. Under direct visualization, I placed a 5 mm trocar in that area. At this point, we were able to visualize the opening and then we put the catheter through the trocars thinking that it would be an easier maneuver, but the cuff prevented us from extraction the trocar, therefore we used the same opening to place the catheter and then placed it in the peritoneal cavity in the pelvis. This seemed to be in good position. At this point Dr. Lozoya took over as far as placement of the catheter in the left flank area. The wounds were closed with 0 Vicryl suture interrupted for the supraumbilical area and then marnie for skin edges, 3-0 Dexon was used for the infraumbilical incision and marnie for the dressing there. Procedure was tolerated well by the patient and was taken to recovery room in good condition. I attest to the content of the Intraoperative Record and any orders documented therein. Any exceptio ns are noted below.
[2016-08-17] MEDS ORDERED: EpHEDrine SULFATE INJ 50 MG/ML AMP ONE (13:46)
[2016-08-17] MEDS ORDERED: SODIUM CHLORIDE 0.9% INJ 10 ML VIAL ONE (13:46)
--- NOTE | 2016-08-17 15:32 | [facility] Post Operative Brief Note ---
Immediate Operative Summary Operative Date August 17, 2016. Pre-Operative Diagnosis End stage renal disease Post-Operative Diagnosis End stage renal disease Procedure(s) Performed Left Wrist Arteriovenous Fistula Creation; Laparoscopic Assisted Peritoneal Diaylsis Catheter Placement Surgeon Dr Samuel Lyon, Dr. Hunter Lozoya [employer] Surgeon(s) Ludy Gan PA-C Estimated Blood Loss 10ml for peritoneal dialysis catheter insertion, Findings good thrill, PD catheter good inflow and outflow Specimens None per surgeon Anesthesia Gen Complication(s) None Disposition Recovery Room / PACU
[2016-08-17] MEDS ORDERED: OXYC-57 PO (15:34)
--- NOTE | 2016-08-17 15:35 | Discharge Instructions ---
Discharge Instructions Date of Service August 17, 2016. Visit Reason for Visit: End Stage Renal Disease Discharge Discharge Diagnosis / Problem: End stage renal disease Discharge Goals Goal(s): Therapeutic intervention Activity Recommendations Activity Limitations: per Instructions/Follow-up section Anesthesia . Post Anesthesia Instructions: If you have had General Anesthesia or IV Sedation: * Do not drive today. * Resume driving when surgeon permits. * Do not make important decisions or sign legal documents today. * Call surgeon for: 1. Temperature elevations greater than 101 degrees F. 2. Uncontrollable pain. 3. Excessive bleeding. 4. Persistent nausea and vomiting. 5. Medication intolerance (nausea, vomiting or rash). * For nausea and vomiting use only clear liquids such as: tea, soda, bouillon until nausea subsides, then gradually increase diet as tolerated. * If you have any concerns or questions, call your surgeon's office. If physician is unavailable and it is an emergency, call 911 or go to the nearest emergency room. . Instructions / Follow-Up Instructions / Follow-Up ACTIVITY RECOMMENDATIONS: See Above SPECIAL CARE INSTRUCTIONS: Call your doctor if: * Temperature above 101 degrees * Pain not relieved by pain medicine ordered * There is increased drainage or redness from any incision * You have any unanswered questions or concerns. Diet Recommendations Recommended Home Diet: resume previous diet Procedures Procedures Performed: Left Wrist Arteriovenous Fistula Creation; Laparoscopic Assisted Peritoneal Diaylsis Catheter Placement Pending Studies Studies pending at discharge: no Medical Emergencies . Who to Call and When: Medical Emergencies: If at any time you feel your situation is an emergency, please call 911 immediately. . Non-Emergent Contact Non-Emergency issues call your: Surgeon . . "Provider Documentation" section prepared by Hunter Lozoya. .
[2016-08-17] MEDS: FENTANYL CITRATE INJ 50 MCG/1 ML 2 ML VIAL IV PRN ×2 (16:38→16:43)
[2016-08-17] MEDS ORDERED: HYDROmorphone INJ 1 MG/ML SYR ONE (16:54)
--- NOTE | 2016-08-17 17:05 | OPERATIVE REPORT ---
DATE OF OPERATION: 08/17/2016 PREOPERATIVE DIAGNOSIS: End-stage renal disease. POSTOPERATIVE DIAGNOSIS: Same. PROCEDURES: 1. Laparoscopic assisted peritoneal dialysis catheter. 2. Left wrist AV fistula. SURGEONS: Dr. Lozoya and Dr. Lyon for the peritoneal dialysis catheter and Dr. Lozoya for the AV fistula. FAST FOOD SHIFT LEAD: Ludy Gan PA-C PROCEDURE INDICATIONS: The patient is a 51-year-old gentleman with end-stage renal disease. He had a PD catheter in the past which was infected. This was removed. He is here for a replacement of the catheter and creation of a left wrist AV fistula. He understood the risks, options and benefits and agreed to have this procedure. DESCRIPTION OF PROCEDURE: The patient was taken to the operating room and placed in supine position. After general anesthesia was accomplished, he was prepped and draped in a sterile manner. Dr. Lyon placed the laparoscopic catheter in place. It was placed on the peritoneum. After this was done, we took a trocar and placed it on the end of the catheter and brought it out through a separate stab wound in the left flank. The midline incision was opened slightly upward and downward being that the flows were not that good. There was a slight twist in the catheter. This was untwisted and the flow was excellent at that time. It inflow and outflow very nicely. At that point, the titanium adaptors were placed on the end of the catheter after the catheter was instilled hep saline. The midline wound for the catheter was then closed using a running 3-0 Vicryl for the subcutaneous layer and marnie for the skin. Sterile dressings were applied to all the wounds. At that point after the dressings were all applied, the left arm was prepped and draped in a sterile manner. Longitudinal incision was made between the cephalic vein and the radial artery at the wrist level. The cephalic vein was identified. It was freed up and ligated distally and divided. The radial artery was identified. It was slightly on the small side; however, good pulse was felt. An end-to-side anastomosis was then accomplished. I did not like the flow due to a side branch and there was a slight twist. This anastomosis was taken down and then another anastomosis was done. Again, the flows were poor which I felt may be from the radial artery. We opened up the anastomosis and redid it and again did not like the flows. I thought there may be another twist in the vein. We then transected the vein beyond the arterial anastomosis and at that point looking at the vein, we decided not to do an end-to-end anastomosis. This was then ligated. We went up approximately 5 cm on the radial artery to a better spot. We also extended the incision upward and got a better portion of the vein. This vein was then transected at the level where the vein was fairly large. Radial artery was then clamped proximally and distally. Longitudinal arteriotomy was then made. Good inflow was seen. The vein was then anastomosed in an end-to-side fashion using 7-0 Prolene suture in the usual vascular fashion. Prior to completing the closure, backbleeding and forward bleeding was allowed to occur. We did pass Refugio catheters upward and downwards to make sure there was no clot present. Final 2 sutures were then placed and tied. The clamps were then removed. Excellent flow was felt through the fistula and the radial artery. There was a good thrill felt at that time. The vein distended up nicely. At that point, adequate hemostasis was obtained of the wound. The wound was then closed in the usual fashion using a running 3-0 Vicryl suture for the subcutaneous layer and a running 4-0 subcuticular Vicryl suture for the skin edges. Dermabond was used for dressing. The patient left the operating room in satisfactory condition and tolerated the procedure well. Ludy Gan Pac assisted due to lack of resident availability and was necessary for prepping, draping, retraction, wound closure defects, subQ and skin and was necessary for the case. I attest to the content of the Intraoperative Record and any orders documented therein. Any exceptions are noted below. LURDES
--- NOTE | 2016-08-17 17:30 | Anesthesiology Progress Note ---
Anesthesia Post Op Note Date & Time August 17, 2016 at 17:29 Vital Signs Pain Intensity: 4 Vital Signs Past 12 Hours Date Time Temp Pulse Resp B/P Pulse Ox O2 Delivery O2 Flow Rate FiO2 08/17/16 17:20 36.2 65 16 130/79 95 Room Air 08/17/16 17:10 36.2 84 16 137/86 97 Room Air 08/17/16 17:00 36.2 82 16 139/93 94 Room Air 08/17/16 16:50 36.2 78 16 135/84 95 Room Air 08/17/16 16:40 36.2 76 16 138/94 94 Room Air 08/17/16 16:30 79 16 144/90 98 Room Air 08/17/16 16:20 80 16 140/90 100 Mask 10 08/17/16 16:10 85 16 138/92 100 Mask 10 08/17/16 16:02 36.4 85 16 135/91 98 Mask 10 08/17/16 10:56 36.6 59 18 141/94 97 Room Air Notes Mental Status: alert / awake / arousable, participated in evaluation Pt Amnestic to Procedure: Yes Nausea / Vomiting: adequately controlled Pain: adequately controlled Airway Patency, RR, SpO2: stable & adequate BP & HR: stable & adequate Hydration State: stable & adequate Anesthetic Complications: no major complications apparent Pt doing well. Pain now tolerable.
[2016-08-17 17:35] VITALS: BP 131/74; PULSE 90; TEMP 36.7; O2SAT 98
[2016-08-17] MEDS ORDERED: OXYCODONE/ACETAMINOPHEN 5-325 TAB ONE (17:50)
[2016-08-17 18:05] VITALS: BP_SYST 127; BP_SYST 150; BP_DIAS 84; BP_DIAS 93; PULSE 88; TEMP 36.7; O2SAT 98
--- NOTE | 2016-08-22 11:00 | Progress Note ---
Progress Note Date of Service August 22, 2016. Progress Note I assisted Dr Lozoya with Sesar Hernandez's Left Wrist Arteriovenous Fistula Creation and Laparoscopic Assisted Peritoneal Diaylsis Catheter Placement on 08/17, d/t lack of resident availability.
== END 2016-08-17 19:26 | disposition home or self-care (01) ==
LOC: C.ACU 10:33
PROVIDERS: ATTEND Surgery Vascular Surgery
DX: N18.6 End stage renal disease (principal); Z99.2 Dependence on renal dialysis; I12.0 Hypertensive chronic kidney disease with stage 5 chronic kidney disease or end stage renal disease; E11.22 Type 2 diabetes mellitus with diabetic chronic kidney disease; E03.9 Hypothyroidism, unspecified; Z79.82 Long term (current) use of aspirin; Z79.899 Other long term (current) drug therapy

== ENCOUNTER 2016-09-20 12:58 | Day surgery (SDC) | payer OTHER ==
[~2016-09-20] VITALS: Ht 182.9 cm; Wt 106.5 kg
[~2016-09-20 12:58] MED LIST changes: -ATROPINE SULFATE 0.1 MG/ML 5ML SYR IV PRN; +CALC667C; -CLINDAMYCIN 600 MG/54 ML D5W IV SCH; +ERGO500037 PO; -EpHEDrine SULFATE INJ 50 MG/ML AMP IV PRN; -HYDROmorphone INJ 0.5 MG/0.5 ML SYR IV PRN; -LABETALOL HCL IV 5 MG/ML 20ML IV PRN; -MEPERIDINE HCL 25 MG/ML CARP IV PRN; -ONDANSETRON INJ 2 MG/ML 2 ML VIAL IV PRN; +OXYC-57 PO; -SODIUM CHLORIDE 0.9% 1000ML 1,000 ML IV SCH
[2016-09-20 13:10] VITALS: BP 144/96; PULSE 60; TEMP 36.6; O2SAT 99; Ht 182.9 cm; Wt 106.5 kg
[2016-09-20] MEDS ORDERED: GLUCOSE 10 TABS/TUBE ONE (14:05)
[2016-09-20] MEDS ORDERED: NURSING VERBAL MED ORDER ONE (14:15)
[2016-09-20] MEDS ORDERED: LIDOCAINE HCL 1% 20 ML VIAL ONE (15:02)
--- NOTE | 2016-09-20 16:35 | History and Physical ---
History & Physical Date of Service Sep 20, 2016. History & Physical Chief Complaint Functioning fistula History of Present Illness The patient is a 50 year old male with ESRD, who previously had buried CAPD catheter placed in 09/28, then underwent externalization and developed an infected CAPD catheter. This was removed. He had a replacement of his CAPD catheter and creation of left wrist av fistula. The fistula is working well. Allergies Coded Allergies: Penicillins (Verified Allergy, Mild, RASH, HIVES, ITCHING, 07/03/16) Home Medications Scheduled Amlodipine (Norvasc), 10 MG PO HS Aspirin (Aspirin Ec), 325 MG PO HS Atorvastatin (Atorvastatin Calcium), 1 TAB PO HS Calcitriol (Rocaltrol Cap), 0.25 MCG PO Q2D Ergocalciferol (Vitamin D 99438 Unit), 50,000 UNIT PO WK Insulin Glargine (Lantus), 24 UNITS SC HS Insulin Glulisine (Apidra Solostar), 4 UNITS SC TIDM Levothyroxine Sodium (Levothyroxine Sodium), 1 TAB PO QAM Torsemide (Demadex), 100 MG PO QAM Scheduled PRN Acetaminophen (Tylenol), 500 MG PO Q6 PRN for Pain Clobetasol Propionate 0.05% (Temovate 0.05%), 1 APPLN EXT BID PRN for PRN Zolpidem Tartrate (Ambien), 5 MG PO HS PRN for Insomnia Problem List Medical Problems: (1) Abdominal pain (2) Benign hypertension (3) Cellulitis (4) Chronic kidney disease, stage V (5) Fever (6) FSGS (focal segmental glomerulosclerosis) (7) Hyperglycemia (8) Hypothyroidism (9) Leukocytosis (10) Peritoneal dialysis catheter dysfunction (11) R index finger surgery (12) Tunnel infection (13) Vision loss Surgical / Medical History Hx Cardiac Surgery: Yes (HEART CATH, NO STENT) Hx Abdominal Surgery: Yes (PERITONEAL DIALYSIS CATHETER PLACEMENT) Hx Cancer Surgery: Yes Hx Thoracic Surgery: No Hx Orthopedic: No Hx Urinary Tract Surgery: Yes (LEFT NEPHRECTOMY) Past Medical/Surgical History: Diabetes, High Cholesterol, Hypertension, Kidney Disease, Thyroid Disease Family History Cancer Diabetes mellitus Heart disease Hypertension Kidney disease Kidney stones Social History Smoking Status: Never Smoker Hx Tobacco Use In Past Year?: No Hx Alcohol Use - Type & Amnt: No Hx Substance Use -Type & Amnt: No Review of Systems Constitutional: + malaise, No chills Skin: + change in color Eyes: No visual changes ENMT: No sore throat Respiratory: No CANNON, No cough, No hemoptysis, No short of breath Cardiovascular: No chest pain, No edema, No intermittent claudication, No palpitations, No syncope Gastrointestinal: No nausea, No vomiting Neurologic: No dizziness, No headache, No lethargy, No numbness, No tingling Physical Exam Constitutional: General Apperance: well-nourished, well-developed, obese Level of Distress: NAD Psychiatric: Mental Status: active & alert, normal mood, normal affect Orientation: oriented except where noted, to time, to place, to person Memory: recent memory normal, remote memory normal Head: normocephalic, atraumatic Eyes: EOM: EOMI ENMT: normal ENT inspection, hearing grossly normal Neck: supple, trachea midline Lungs: Respiratory effort: no dyspnea Auscultation: no wheezing, no rales/crackles, no rhonchi, normal breath sounds Cardiovascular: Apical Impulse: not displaced Heart Auscultation: RRR, no rubs, no gallops Peripheral Pulses: Pulses: full and equal, in all extremities except if noted Bruits: none appreciated Carotid Pulse: normal on the left, normal on the right Brachial Pulses: normal on the left, normal on the right Radial Pulse: normal on the left, normal on the right Femoral Pulse: normal on the left, normal on the right Posterior Tibialis Pulse: decreased on the left, decreased on the right Dorsalis Pedis Pulse: decreased on the left, decreased on the right Abdomen: Bowel Sounds: normal Inspection & Palpation: soft, no tenderness Musculoskeletal: normal strength (5/5 throughout), normal tone Extremities: Upper Right: no cyanosis, no edema, no varicosities, no palpable cord, no clubbing, no ulcers, no mottling Upper Left: no cyanosis, no edema, no palpable cord, no clubbing, no ulcers , no mottling Lower Right: no cyanosis, no varicosities, no edema Lower Left: no cyanosis, no varicosities, no edema Neurologic: Cranial Nerves: grossly intact Assessment and Plan ASSESSMENT and PLAN: ESRD Functioning fistula Plan: Patient is admitted for removal of his permcath. I have discussed the risks options and benefits of the procedure with the patient. The patient understands the risks options and benefits and agrees to the procedure.
--- NOTE | 2016-09-20 17:23 | Discharge Instructions ---
Discharge Instructions Date of Service Sep 20, 2016. Visit Reason for Visit: End Stage Renal Disease Discharge Discharge Diagnosis / Problem: Functioning dialysis access Discharge Goals Goal(s): Therapeutic intervention Activity Recommendations Activity Limitations: resume your previous activity Shower/Bathe: tomorrow Anesthesia . Post Anesthesia Instructions: If you have had General Anesthesia or IV Sedation: * Do not drive today. * Resume driving when surgeon permits. * Do not make important decisions or sign legal documents today. * Call surgeon for: 1. Temperature elevations greater than 101 degrees F. 2. Uncontrollable pain. 3. Excessive bleeding. 4. Persistent nausea and vomiting. 5. Medication intolerance (nausea, vomiting or rash). * For nausea and vomiting use only clear liquids such as: tea, soda, bouillon until nausea subsides, then gradually increase diet as tolerated. * If you have any concerns or questions, call your surgeon's office. If physician is unavailable and it is an emergency, call 911 or go to the nearest emergency room. . Instructions / Follow-Up Instructions / Follow-Up Call [phone] with any questions or concerns. SPECIAL CARE INSTRUCTIONS: Medications: * Continue to take your medications as directed. If you have been given a prescription for Plavix, please fill it immediately and take as directed. Incision Care: * Your puncture site may have some bruising and minor swelling for about one week. * You will have a small dressing covering your puncture site. You may remove the dressing after 24 hours and shower. You may let the warm soapy water run over it, but be sure to dry the puncture site well and keep it dry. * DO NOT IMMERSE THE INCISION IN A TUB/POOL/etc. UNTIL HEALED. * Puncture sites should be kept covered with a band-aid until it begins to heal. Restrictions: * Depending on whether you leg or arm was punctured to access the arteries, you will be required to lay flat, hold your arm still, or both, for about 4 hours after the procedure to prevent bleeding. * Limit your activity for the first 48 hours. You may walk and go up and down steps. Avoid excessive bending or movement at the puncture site. Possible Complications: * Excessive Swelling - after blood flow is improved you may notice increased swelling in the lower legs. This is a normal response. This usually depends on the amount of blockages in the leg, how long they have been there prior to your procedure and how much blood flow was restored. Elevating your legs will help to improve this. Please notify our office ([phone] ) if the swelling does not go away after lying in bed overnight. * Infection/Drainage/Bleeding - Drainage or bleeding from the puncture site should be minimal. If you have excessive bleeding or drainage, call our office ([phone]) right away. * Pain - You may experience some mild pain or soreness at your puncture site. If your pain does not improve, please contact our office ([phone]). Call your doctor and seek emergent treatment if you develop: * Temperature above 101 degrees * Any fever or chills * Any redness or purulent drainage from the puncture site * Any new dusky/blue colored toes or feet with coolness or sharp or aching pain. SKIN IRRITATION: * You may experience some redness and/or swelling in the area where radiation was administered. If any skin irritation occurs, please contact your family physician. FOLLOW UP VISIT: Keep any scheduled doctor appointments. Diet Recommendations Recommended Home Diet: resume previous diet Procedures Procedures Performed: Removal of Perm Catheter Pending Studies Studies pending at discharge: no Medical Emergencies . Who to Call and When: Medical Emergencies: If at any time you feel your situation is an emergency, please call 911 immediately. . Non-Emergent Contact Non-Emergency issues call your: Surgeon . . "Provider Documentation" section prepared by Hunter Lozoya. .
--- NOTE | 2016-09-20 17:24 | [facility] Post Operative Brief Note ---
Immediate Operative Summary Operative Date Sep 20, 2016. Pre-Operative Diagnosis Functioning Dialysis Access Post-Operative Diagnosis Same Procedure(s) Performed Removal of Perm Catheter Surgeon Dr. Lozoya Credit Products Officer Surgeon(s) Dr. Sandra Nicolas Estimated Blood Loss 3 Findings catheter and cuff removed Specimens A: Explant Perm Catheter Anesthesia Local Complication(s) None Disposition
[2016-09-20] MEDS ORDERED: ATROPINE SULFATE 0.1 MG/ML 10 ML SYR ONE (17:33)
[2016-09-20 17:53] VITALS: BP 133/95; PULSE 82; TEMP 37; O2SAT 98
[2016-09-20 18:20] VITALS: BP 146/93; PULSE 62; TEMP 36.5; O2SAT 100
--- NOTE | 2016-10-31 07:12 | [facility] Operative Report ---
Operative Report Operative Date 09/20/16 Pre-Operative Diagnosis Functioning Dialysis Access Post-Operative Diagnosis Same Procedure(s) Performed Removal of Perm Catheter Surgeon Dr. Lozoya Employment Training Specialist Surgeon(s) Dr. Sandra Nicolas Estimated Blood Loss 3 Findings cuff and catheter removed Specimens A: Explant Perm Catheter Anesthesia Local Complication(s) None Disposition Indications This is a 51-year-old male who has a functioning dialysis access. He is now admitted for removal of his PermCath. He understands the risks options and benefits and agrees to go ahead with this procedure. Description of Procedure The patient was taken to the angio suite and placed in the supine position. The right side of the neck, chest wall and catheter were prepped and draped in a sterile manner. Local anesthesia was then accomplished. Using sharp and blunt dissection, the cuff of the permcath was freed up from the surrounding fibrous tissue. The permcath and cuff were completely removed. Pressure was then applied and adequate hemostasis was obtained. A sterile dressing was then applied. The patient left the angio suite in good condition and tolerated the procedure well. I attest to the content of the Intraoperative Record and any orders documented therein. Any exceptions are noted below.
== END 2016-09-20 18:30 | disposition home or self-care (01) ==
LOC: C.ACU 12:58
PROVIDERS: ATTEND Surgery Vascular Surgery
DX: N18.6 End stage renal disease (principal); I10 Essential (primary) hypertension; E03.9 Hypothyroidism, unspecified; E11.9 Type 2 diabetes mellitus without complications; E78.00 Pure hypercholesterolemia, unspecified; Z90.5 Acquired absence of kidney; Z88.0 Allergy status to penicillin; Z98.890 Other specified postprocedural states; Z79.4 Long term (current) use of insulin; Z79.82 Long term (current) use of aspirin; Z80.9 Family history of malignant neoplasm, unspecified; Z83.3 Family history of diabetes mellitus; Z82.49 Family history of ischemic heart disease and other diseases of the circulatory system; Z84.1 Family history of disorders of kidney and ureter

== ENCOUNTER 2016-10-22 17:48 | Emergency (ER) | payer OTHER ==
[~2016-10-22 17:48] MED LIST changes: -LSN5 PO
== END 2016-10-22 17:57 | disposition left against medical advice (07) ==
LOC: C.EDB 17:49
DX: R42 Dizziness and giddiness (principal); R31.9 Hematuria, unspecified

== ENCOUNTER → 2016-10-22 | Outpatient (CLI) | payer OTHER ==
[~2016-10-22] MED LIST changes: -CALC667C; +LSN5 PO; -OXYC-57 PO
== END | disposition home or self-care (01) ==
LOC: C.LABSPEC 17:00
PROVIDERS: ATTEND Physician Assistant
DX: R42 Dizziness and giddiness (principal)

== ENCOUNTER → 2016-11-06 | Outpatient (CLI) | payer OTHER ==
[~2016-11-06] MED LIST changes: +LSN5 PO
--- NOTE | 2016-11-06 12:19 | DIAGNOSTIC IMAGING REPORT ---
KUB CLINICAL HISTORY: R10.11 Abdominal pain, RUQ (right upper quadrant)check PD cathete COMPARISON STUDY: No previous studies for comparison. FINDINGS: Nonobstructive bowel pattern. Left-sided peritoneal dialysis catheter is coiled within the left flank into the anterior to the left lateral iliac wing. Bowel pattern is nonobstructive. IMPRESSION: Peritoneal dialysis catheter is coiled in the lower left flank/paracolic gutter region. The above report was generated using voice recognition software. It may contain grammatical, syntax or spelling errors. Electronically signed by: Shree Stokes M.D. 11/06/2016 12:17 PM Dictated Date/Time: 11/06/2016 12:16 PM
== END | disposition home or self-care (01) ==
LOC: C.RAD 11:19
PROVIDERS: ATTEND Internal Medicine Nephrology
DX: R10.11 Right upper quadrant pain (principal)

== ENCOUNTER → 2016-11-27 | Outpatient (CLI) | payer OTHER | END | disposition home or self-care (01) | LOC: C.LABSPEC 12:01 | PROVIDERS: ATTEND Internal Medicine | DX: R19.7 Diarrhea, unspecified (principal) ==

== ENCOUNTER → 2016-11-28 | Outpatient (CLI) | payer OTHER ==
[2016-11-28 16:29] LABS: BASO % 0.2 %; BASO ABS # 0.02 K/uL (0-0.2); COMPLETE YES; EOS % 8.8 %; HEMATOCRIT 41.9 % (42-52); IG% 2.3 %; LYMPH % 14.6 %; LYMPH ABS # 1.64 K/uL (1.2-3.4); MEAN CELL VOLUME 91.1 fL (80-100); MEAN CORPUSCULAR HEMOGLOBIN 29.3 pg (25-34); MEAN CORPUSCULAR HGB CONC 32.2 g/dl (32-36); MEAN PLATELET VOLUME 10.9 fL (7.4-10.4); MONO % 5.9 %; NEUT % 68.2 %; PLATELET COUNT 219 K/uL (130-400); WHITE BLOOD COUNT 11.21 K/uL (4.8-10.8)
[2016-11-28 18:46] LABS: ALB/GLOB RATIO 1.1 (0.9-2); ALKALINE PHOSPHATASE 86 U/L (45-117); ALT/SGPT 38 U/L (12-78); AST/SGOT 14 U/L (15-37); BLOOD UREA NITROGEN 56 mg/dl (7-18); BUN/CREATININE RATIO 7.5 (10-20); CALCIUM 8.4 mg/dl (8.5-10.1); CARBON DIOXIDE 18 mmol/L (21-32); CHLORIDE 114 mmol/L (98-107); GLUCOSE 70 mg/dl (70-99); POTASSIUM 4.9 mmol/L (3.5-5.1); SODIUM 139 mmol/L (136-145)
== END | disposition home or self-care (01) ==
LOC: C.LAB1850 15:30
PROVIDERS: ATTEND Internal Medicine
DX: R19.7 Diarrhea, unspecified (principal)

== ENCOUNTER → 2016-11-29 | Outpatient (CLI) | payer OTHER ==
[2016-12-05 14:46] LABS: O&P SOURCE OTHER-STOOL
== END | disposition home or self-care (01) ==
LOC: C.LABSPEC 11:30
PROVIDERS: ATTEND Internal Medicine
DX: R19.7 Diarrhea, unspecified (principal)

== ENCOUNTER 2016-12-01 06:49 | Emergency (ER) | payer OTHER ==
[~2016-12-01] VITALS: Ht 182.9 cm; Wt 108.2 kg
[~2016-12-01 06:49] MED LIST changes: -LSN5 PO
[2016-12-01 06:52] VITALS: TEMP 36.4; Ht 182.9 cm; Wt 108.2 kg
[2016-12-01] MEDS ORDERED: SODIUM CHLORIDE 0.9% 1000ML 1,000 ML IV STA (07:08)
[2016-12-01] MEDS ORDERED: LOPERAMIDE LIQUID 1MG/7.5ML 120ML BTL PO ONE (07:15)
--- NOTE | 2016-12-01 07:26 | DIAGNOSTIC IMAGING REPORT ---
CHEST ONE VIEW PORTABLE CLINICAL HISTORY: Altered mental status. Weakness. COMPARISON STUDY: Chest CT June 12, 2016 and chest radiograph July 03, 2016. FINDINGS: A calcified left upper lobe granuloma is noted. There is no pneumothorax or pleural effusion. There is no evidence of pulmonary edema. Cardiomediastinal silhouette is stable. No consolidation is identified to suggest pneumonia. IMPRESSION: No acute cardiopulmonary findings. Electronically signed by: Ajay Montiel M.D. 12/01/2016 7:25 AM Dictated Date/Time: 12/01/2016 7:24 AM
[2016-12-01 07:54] LABS: BASO % 0.4 %; BASO ABS # 0.04 K/uL (0-0.2); COMPLETE YES; EOS % 10.3 %; HEMATOCRIT 41.3 % (42-52); IG% 2.2 %; LYMPH % 14.4 %; LYMPH ABS # 1.47 K/uL (1.2-3.4); MEAN CELL VOLUME 90.8 fL (80-100); MEAN CORPUSCULAR HEMOGLOBIN 29.5 pg (25-34); MEAN CORPUSCULAR HGB CONC 32.4 g/dl (32-36); MEAN PLATELET VOLUME 11.3 fL (7.4-10.4); MONO % 4.7 %; PLATELET COUNT 226 K/uL (130-400); RED BLOOD COUNT 4.55 M/uL (4.7-6.1); WHITE BLOOD COUNT 10.21 K/uL (4.8-10.8)
[2016-12-01] MEDS ORDERED: LSN5 PO (08:08)
[2016-12-01 08:09] LABS: PARTIAL THROMBOPLASTIN RATIO 1.1; PROTHROMBIN TIME (PATIENT) 10.2 SECONDS (9.0-12.0)
[2016-12-01] MEDS ORDERED: ACETAMINOPHEN 500 MG TAB PO STA (08:21)
[2016-12-01 09:10] LABS: ALKALINE PHOSPHATASE 87 U/L (45-117); ALT/SGPT 32 U/L (12-78); AST/SGOT 13 U/L (15-37); BLOOD UREA NITROGEN 50 mg/dl (7-18); BUN/CREATININE RATIO 6.7 (10-20); CALCIUM 8.5 mg/dl (8.5-10.1); CARBON DIOXIDE 16 mmol/L (21-32); CHLORIDE 113 mmol/L (98-107); CKMB/CK RATIO 2.4 (0-3.0); GLUCOSE 138 mg/dl (70-99); MAGNESIUM 2.2 mg/dl (1.8-2.4); POTASSIUM 4.7 mmol/L (3.5-5.1); SODIUM 139 mmol/L (136-145)
--- NOTE | 2016-12-01 09:58 | EMERGENCY ROOM VISIT NOTE ---
History Report prepared by Claytonibmarkus: Sendy Mancilla Under the Supervision of: Dr. Xander Forbes D.O. First contact with patient: 07:02 Chief Complaint: DIARRHEA Stated Complaint: NON STOP BOWEL MOVEMENTS FOR 11 DAYS Nursing Triage Summary: triage note; pt reports diarrhea x 11 days. pt reports seeing his pcp "they ran tests but then they told me to come here." History of Present Illness The patient is a 51 year old male who presents to the Emergency Room with complaints of persistent diarrhea for the past 11 days. Yesterday he had "26 episodes in 10 hours". Every time he tries to eat or drink, he experiences diarrhea. He has not tried medication for his symptoms yet. He has been seeing his primary care physician for the diarrhea, and last saw his PCP this past Saturday, 5 days ago. He had "several tests" done and reports C-Difficile was ruled out after stool tests. Yesterday he called Dr. Hare's office and left a message when his diarrhea persisted. Last night, one of the nurses called him and told him to go to the ED. The patient is on daily dialysis for a history of CKD and kidney cancer, and states he is supposed to get dialysis every day, but he has not been dialyzed in several days. He denies any recent abdominal pain or urinary symptoms. Last week he did experience diaphoresis, nausea and vomiting. He reports he never experienced a fever. Source of History: patient Onset: 11 days REGIONAL DIRECTOR Position: other (global) Quality: other (diarrhea) Timing: other (persistent) Associated Symptoms: + diaphoresis, + nausea, + vomiting, No fevers, No abdominal pain, No urinary symptoms Review of Systems See HPI for pertinent positives & negatives. A total of 10 systems reviewed and were otherwise negative. Past Medical & Surgical Medical Problems: (1) Abdominal pain (2) Benign hypertension (3) Cellulitis (4) Chronic kidney disease, stage V (5) Fever (6) FSGS (focal segmental glomerulosclerosis) (7) Hyperglycemia (8) Hypothyroidism (9) Leukocytosis (10) Peritoneal dialysis catheter dysfunction (11) R index finger surgery (12) Tunnel infection (13) Vision loss Family History Cancer Diabetes mellitus Heart disease Hypertension Kidney disease Kidney stones Social History Smoking Status: Never Smoker Alcohol Use: none Drug Use: none Marital Status: Housing Status: lives with family Occupation Status: employed Current/Historical Medications Scheduled Ergocalciferol (Vitamin D 91768 Unit), 1 CAP PO WK Lisinopril (Lisinopril), 5 MG PO DAILY Tamsulosin Hcl (Flomax), 0.4 MG PO QAM Allergies Coded Allergies: Doxycycline (Verified Allergy, Severe, RASH, 12/01/16) phlebitis and pain with IV administration Penicillins (Verified Allergy, Mild, RASH, HIVES, ITCHING, 12/01/16) Physical Exam Vital Signs Date Time Temp Pulse Resp B/P (MAP) Pulse Ox O2 Delivery O2 Flow Rate FiO2 12/01/16 10:09 70 12/01/16 08:51 89 13 129/84 98 Room Air 12/01/16 07:45 69 12/01/16 07:36 71 21 138/90 97 Room Air 12/01/16 06:52 36.4 92 18 132/93 98 Room Air Physical Exam CONSTITUTIONAL/VITAL SIGNS: Reviewed / noted above. GENERAL: Non-toxic in appearance. INTEGUMENTARY: Warm, dry, and [place]. HEAD: Normocephalic. EYES: without scleral icterus or trauma. ENT/OROPHARYNX: clear and moist. LYMPHADENOPATHY/NECK: Is supple without lymphadenopathy or meningismus. RESPIRATORY: Lungs clear and equal. CARDIOVASCULAR: Regular rate and rhythm. GI/ABDOMEN: Soft and nontender. No organomegaly or pulsatile mass. No rebound or guarding. Hyperactive bowel sounds. EXTREMITIES: Warm and well perfused. BACK: No CVA tenderness. NEUROLOGICAL: Intact without focal deficits. PSYCHIATRIC: normal affect. MUSCULOSKELETAL: Normally developed with good muscle tone. Medical Decision & Procedures ER Provider Diagnostic Interpretation: Radiology results as stated below per my review and radiologist interpretation: CHEST ONE VIEW PORTABLE CLINICAL HISTORY: Altered mental status. Weakness. COMPARISON STUDY: Chest CT June 12, 2016 and chest radiograph July 03, 2016. FINDINGS: A calcified left upper lobe granuloma is noted. There is no pneumothorax or pleural effusion. There is no evidence of pulmonary edema. Cardiomediastinal silhouette is stable. No consolidation is identified to suggest pneumonia. IMPRESSION: No acute cardiopulmonary findings. Electronically signed by: Ajay Montiel M.D. 12/01/2016 7:25 AM Laboratory Results 12/01/16 07:30 Red Blood Count 4.55, Mean Corpuscular Volume 90.8, Mean Corpuscular Hemoglobin 29.5, Mean Corpuscular Hemoglobin Concent 32.4, Mean Platelet Volume 11.3, Neutrophils (%) (Auto) 68.0, Lymphocytes (%) (Auto) 14.4, Monocytes (%) (Auto) 4.7, Eosinophils (%) (Auto) 10.3, Basophils (%) (Auto) 0.4, Neutrophils # (Auto ) 6.95, Lymphocytes # (Auto) 1.47, Monocytes # (Auto) 0.48, Eosinophils # (Auto ) 1.05, Basophils # (Auto) 0.04 12/01/16 07:30 Test 12/01/16 07:30 White Blood Count 10.21 K/uL (4.8-10.8) Red Blood Count 4.55 M/uL (4.7-6.1) Hemoglobin 13.4 g/dL (14.0-18.0) Hematocrit 41.3 % (42-52) Mean Corpuscular Volume 90.8 fL (80-100) Mean Corpuscular Hemoglobin 29.5 pg (25-34) Mean Corpuscular Hemoglobin Concent 32.4 g/dl (32-36) Platelet Count 226 K/uL (130-400) Mean Platelet Volume 11.3 fL (7.4-10.4) Neutrophils (%) (Auto) 68.0 % Lymphocytes (%) (Auto) 14.4 % Monocytes (%) (Auto) 4.7 % Eosinophils (%) (Auto) 10.3 % Basophils (%) (Auto) 0.4 % Neutrophils # (Auto) 6.95 K/uL (1.4-6.5) Lymphocytes # (Auto) 1.47 K/uL (1.2-3.4) Monocytes # (Auto) 0.48 K/uL (0.11-0.59) Eosinophils # (Auto) 1.05 K/uL (0-0.5) Basophils # (Auto) 0.04 K/uL (0-0.2) RDW Standard Deviation 62.6 fL (36.4-46.3) RDW Coefficient of Variation 18.8 % (11.5-14.5) Immature Granulocyte % (Auto) 2.2 % Immature Granulocyte # (Auto) 0.22 K/uL (0.00-0.02) Prothrombin Time 10.2 SECONDS (9.0-12.0) Prothromb Time International Ratio 1.0 (0.9-1.1) Activated Partial Thromboplast Time 28.5 SECONDS (21.0-31.0) Partial Thromboplastin Ratio 1.1 Anion Gap 10.0 mmol/L (3-11) Est Creatinine Clear Calc Drug Dose 14.5 ml/min Estimated GFR () 8.7 Estimated GFR (Non- 7.5 BUN/Creatinine Ratio 6.7 (10-20) Calcium Level 8.5 mg/dl (8.5-10.1) Magnesium Level 2.2 mg/dl (1.8-2.4) Total Bilirubin 0.3 mg/dl (0.2-1) Direct Bilirubin < 0.1 mg/dl (0-0.2) Aspartate Amino Transf (AST/SGOT) 13 U/L (15-37) Alanine Aminotransferase (ALT/SGPT) 32 U/L (12-78) Alkaline Phosphatase 87 U/L (45-117) Total Creatine Kinase 98 U/L (39-308) Creatine Kinase MB 2.4 ng/ml (0.5-3.6) Creatine Kinase MB Ratio 2.4 (0-3.0) Troponin I < 0.015 ng/ml (0-0.045) Total Protein 7.7 gm/dl (6.4-8.2) Albumin 3.8 gm/dl (3.4-5.0) Lipase 637 U/L (73-393) Date/Time Source Procedure Growth Status 12/01/16 07:05 Stool C.difficile Toxin B Gene (PCR) - Final No C. difficile toxin B gene detected Complete Medications Administered Medications (Trade) Dose Ordered Sig/[place] Route Start Time Stop Time Status Last Admin Dose Admin Sodium Chloride 1,000 ml @ 999 mls/hr Q1H1M STAT IV 12/01/16 07:08 12/01/16 08:08 DC 12/01/16 07:34 999 MLS/HR Loperamide HCl (Imodium A-D Liquid) 2 mg ONE ONCE PO 12/01/16 07:15 12/01/16 07:16 DC 12/01/16 07:35 2 MG Acetaminophen (Tylenol Tab) 1,000 mg NOW STAT PO 12/01/16 08:21 12/01/16 08:22 DC 12/01/16 08:50 1,000 MG ED Course 0703: Previous medical records were reviewed. The patient was evaluated in room B10. A complete history and physical examination was performed. 0708: NSS 1000 ml @ 999 mls/hr IV. 0715: Loperamide HCl 2 mg PO. 0821: Acetaminophen 1000 mg PO. 0955: I reevaluated the patient. He is feeling better. I discussed his results and discharge instructions and he verbalized complete understanding and agreement. Medical Decision Differential diagnosis: Etiologies such as gastroenteritis, food borne illness, infections, appendicitis, diverticulitis, inflammatory bowel disease, obstruction, GI bleed, biliary pathology, as well as others were entertained. This is a 51-year-old male who presents to the ED with a chief complaint of diarrhea. The patient states that he has had diarrhea for about the past 10 days. He reports that on average he has diarrhea around 15 times a day. He states that he gets diarrhea every time that he eats or drinks. The patient denies any other significant symptoms. He is on peritoneal dialysis. The patient saw Dr. Hare . He had stool testing that was negative for acute disease. Ova & Parasites is pending. The patient's exam today was unremarkable. Today reveals a normal CBC, a BUN of 50 and a creatinine of 7.5. This is similar to . Troponin was negative. C. difficile today is negative. The patient was given Imodium by mouth. He was also given some Tylenol by mouth. He is felt to be stable for discharge. I recommended that he contact his doctor on Saturday for recheck. He will try Imodium for diarrhea. Medication Reconcilliation Current Medication List: was personally reviewed by me Blood Pressure Screening Patient's blood pressure: Normal blood pressure Blood pressure disposition: Did not require urgent referral Impression Primary Impression: Diarrhea Scribe Attestation The scribe's documentation has been prepared under my direction and personally reviewed by me in its entirety. I confirm that the note above accurately reflects all work, treatment, procedures, and medical decision making performed by me. Departure Information Dispostion Home / Self-Care Referrals Harshad Hare M.D. (PCP) Patient Instructions My [facility] Additional Instructions Try Imodium for the diarrhea. Follow-up with your doctor on Saturday for recheck. Return for worsening or new concerns.
[2016-12-01 10:25] VITALS: BP 128/78; PULSE 78; O2SAT 97
== END 2016-12-01 10:20 | disposition home or self-care (01) ==
LOC: C.EDB 06:50
DX: R19.7 Diarrhea, unspecified (principal); N18.5 Chronic kidney disease, stage 5; Z85.528 Personal history of other malignant neoplasm of kidney; Z99.2 Dependence on renal dialysis; I12.0 Hypertensive chronic kidney disease with stage 5 chronic kidney disease or end stage renal disease; N26.9 Renal sclerosis, unspecified; E03.9 Hypothyroidism, unspecified; H54.7 Unspecified visual loss; Z83.3 Family history of diabetes mellitus; Z82.49 Family history of ischemic heart disease and other diseases of the circulatory system; Z84.1 Family history of disorders of kidney and ureter

== ENCOUNTER → 2016-12-18 | Outpatient (CLI) | payer OTHER ==
[~2016-12-18] MED LIST changes: -AMLO-114 PO; -ASPI325T39 PO; -CLOB-65 EXT; -LEVO50TA6 PO; -LPT/20 PO; +LSN5 PO; +OPTIRAY 320 IV PRN; -ZOLP5TAB PO
--- NOTE | 2016-12-18 13:03 | DIAGNOSTIC IMAGING REPORT ---
ABD WITH IV AND ORAL CONT (CT) HISTORY: 51 years-old Male X acute right upper quadrant abdominal pain with nausea and vomiting. Initial exam. COMPARISON: CT abdomen and pelvis 07/03/2016 TECHNIQUE: Multiple axial CT images of the abdomen were obtained following the intravenous administration of 93 mL Optiray 320. A dose lowering technique was used consistent with the principals of DENIS. FINDINGS: Lung bases are generally clear. No pneumoperitoneum. Imaged inferior cardiac chambers are unremarkable. There is diffuse fatty infiltration of the liver. Punctate calcification of the upper spleen is nonspecific. The pancreas and adrenal glands are unremarkable. Gallbladder is contracted. Prior left nephrectomy. 7 mm exophytic cyst seen within the inferior pole right kidney. No right-sided hydronephrosis or renal calculi identified. There is mild mixed plaquing of the abdominal aorta which is patent without aneurysm. There is no bowel obstruction or focal bowel wall thickening identified. The imaged portions of the appendix appear normal. Peritoneal dialysis catheter of the left lower abdomen is partially imaged. Soft tissues are unremarkable. The bones appear intact. IMPRESSION: 1. No acute intra-abdominal or intrapelvic abnormality identified. No bowel obstruction or focal bowel wall thickening. 2. Fatty infiltration of the liver. 3. Prior left nephrectomy. 4. Peritoneal dialysis catheter partially imaged. The above report was generated using voice recognition software. It may contain grammatical, syntax or spelling errors. Electronically signed by: Steve Steele M.D. 12/18/2016 12:59 PM Dictated Date/Time: 12/18/2016 12:50 PM
== END | disposition home or self-care (01) ==
LOC: C.CTS 11:40
PROVIDERS: ATTEND Internal Medicine Nephrology
DX: R10.11 Right upper quadrant pain (principal); R93.8 Abnormal findings on diagnostic imaging of other specified body structures; N18.5 Chronic kidney disease, stage 5; T85.611A Breakdown (mechanical) of intraperitoneal dialysis catheter, initial encounter; Y84.6 Urinary catheterization as the cause of abnormal reaction of the patient, or of later complication, without mention of misadventure at the time of the procedure; K76.0 Fatty (change of) liver, not elsewhere classified; Z90.5 Acquired absence of kidney

== ENCOUNTER 2017-05-06 09:41 | Inpatient (IN) | payer OTHER ==
[~2017-05-06] VITALS: Ht 182.9 cm; Wt 109.8 kg
[~2017-05-06 09:41] MED LIST changes: -OPTIRAY 320 IV PRN
[2017-05-06] MEDS ORDERED: MoRPHine SULFATE 4 MG/ML 1 ML CARP\\VIAL IV STA ×2 (10:11→14:21)
[2017-05-06] MEDS ORDERED: ONDANSETRON INJ 2 MG/ML 2 ML VIAL IV STA (10:11)
--- NOTE | 2017-05-06 10:14 | EMERGENCY ROOM VISIT NOTE ---
History Report prepared by Shil[place]: Baldo Bird Under the Supervision of: Dr. Madi Herzog M.D. First contact with patient: 09:54 Chief Complaint: ABDOMINAL PAIN Stated Complaint: CLOUDY PD FLUID Nursing Triage Summary: cloudy fluid this morning after doing peritoneal dialysis. History of Present Illness The patient is a 51 year old white male with a past medical history of HTN, CKD stage 5 with PD, DM, and hypothyroid who presents to the ED with a cc of constant abdominal pain and cloudy fluid after doing dialysis this morning. The abdominal pain is worse with standing up. Positive nausea. Negative vomiting, fever, chills, alcohol use, and tobacco use. He notes that the fluid is supposed to be clear, and he does it every day. He is not currently going through chemotherapy. His catheter was placed last year, and he still makes his own urine. He follows up with Dr. Barreto - [facility]. Source of History: patient Onset: this morning Position: abdomen Timing: constant Modifying Factors (Worsening): other (standing up) Associated Symptoms: + nausea, No fevers, No chills, No vomiting Review of Systems See HPI for pertinent positives and negatives. A total of ten systems were reviewed and were otherwise negative. Past Medical & Surgical Medical Problems: (1) Abdominal pain (2) Benign hypertension (3) Cellulitis (4) Chronic kidney disease, stage V (5) Fever (6) FSGS (focal segmental glomerulosclerosis) (7) Hyperglycemia (8) Hypothyroidism (9) Leukocytosis (10) Peritoneal dialysis catheter dysfunction (11) Peritonitis (12) R index finger surgery (13) Tunnel infection (14) Vision loss Family History Cancer Diabetes mellitus Heart disease Hypertension Kidney disease Kidney stones Social History Smoking Status: Never Smoker Alcohol Use: none Drug Use: none Marital Status: Housing Status: lives with family Occupation Status: employed Current/Historical Medications Scheduled Aspirin (Aspirin 81), 81 MG PO HS Ergocalciferol (Vitamin D 98211 Unit), 1 CAP PO WK Tamsulosin Hcl (Flomax), 0.4 MG PO HS Zolpidem Tartrate (Ambien), 10 MG PO HS Allergies Coded Allergies: Doxycycline (Verified Allergy, Severe, RASH, 05/06/17) phlebitis and pain with IV administration Penicillins (Verified Allergy, Mild, RASH, HIVES, ITCHING, 05/06/17) Physical Exam Vital Signs Date Time Temp Pulse Resp B/P (MAP) Pulse Ox O2 Delivery O2 Flow Rate FiO2 05/06/17 13:16 55 20 149/91 95 Room Air 05/06/17 11:40 59 20 142/99 95 Room Air 05/06/17 09:45 36.9 71 18 165/89 96 Room Air Physical Exam GENERAL: Awake, alert, well-appearing, NAD. Noted cloudy dialysate at bedside HENT: Normocephalic, atraumatic. EYES: Normal conjunctiva. Sclera non-icteric. NECK: Supple. No nuchal rigidity. FROM. RESPIRATORY: CTAB, no rhonchi, wheezing, crackles CARDIAC: RRR, no MRG ABDOMEN: Mild epigastric, RUQ, suprapubic, and LLQ TTP. Vertical incisional scar noted. LLQ PD catheter in place, insertional site is CDI. Soft, ND, BS+ MSK: No chest wall TTP, no LE edema NEURO: GCS 15, CN 2-12 intact, moves all 4s on command SKIN: No rash or jaundice noted. Medical Decision & Procedures ER Provider Diagnostic Interpretation: Radiology results as stated below per my review and radiologist interpretation: PA CHEST RADIOGRAPH AND UPRIGHT AND SUPINE AP RADIOGRAPHS OF THE ABDOMEN CLINICAL HISTORY: Abdominal pain. COMPARISON STUDY: Chest radiograph December 01, [address] of the abdomen and pelvis May 06, 2017. FINDINGS: No pneumothorax or pleural effusion is noted. There is no evidence for pulmonary edema. Cardiomediastinal silhouette is stable. A calcified left upper lobe granuloma is unchanged. Pneumoperitoneum is noted. Bowel gas pattern is normal. Peritoneal dialysis catheter within the left lower quadrant is noted. IMPRESSION: 1. Pneumoperitoneum as shown on CT performed earlier today. Although nonspecific, this is likely related to the indwelling peritoneal dialysis catheter. 2. No evidence for a bowel obstruction. 3. No acute cardiopulmonary findings. Electronically signed by: Ajay Montiel M.D. 05/06/2017 12:29 PM Dictated Date/Time: 05/06/2017 12:[address] SCAN OF THE ABDOMEN AND PELVIS WITHOUT IV CONTRAST CLINICAL HISTORY: Lower abdominal pain peritoneal dialysis patient. COMPARISON STUDY: Abdominal CT dated 12/18/2016. TECHNIQUE: CT scan of the abdomen and pelvis is performed from the lung bases to the proximal femora. Images are reviewed in the axial, sagittal, and coronal planes. IV contrast was not administered for this examination as per the referring clinician. Note that the examination was performed in suboptimal fashion without oral and IV contrast. A dose lowering technique was utilized adhering to the principles of ALARA. CT DOSE: 1116.27 mGy.cm FINDINGS: Lung bases: The heart is normal in size and without pericardial effusion. The lung bases are clear noting dependent atelectasis. There is a tiny hiatal hernia. Liver: The unenhanced liver is enlarged, measuring 19 cm in length. The liver demonstrates diffusely diminished attenuation consistent with severe hepatic steatosis. Fatty sparing is seen adjacent to gallbladder fossa. There is no intrahepatic biliary ductal dilatation. Gallbladder: Unremarkable. Spleen: The spleen is mildly enlarged measuring 14.1 cm in length. There are small calcified splenic granulomas. Pancreas: Unremarkable. Adrenal glands: Unremarkable. Kidneys: The left kidney is not identified and presumed surgically absent. The right kidney demonstrates cortical atrophy and is without hydronephrosis. There are no renal calculi identified. A 10 mm exophytic cyst arises from the lower pole of the right kidney as seen on image #219.. Abdominal vasculature: The abdominal aorta is normal in course and caliber noting mild atherosclerotic calcification. Bowel: There are scattered colonic diverticula. Inflammatory stranding seen around a diverticulum in the distal descending/proximal sigmoid colon on image #372. The appearance suggests mild acute diverticulitis. There is no evidence of abscess. No bowel obstruction is seen. The appendix is well-visualized and normal. Peritoneum: There are nonspecific foci of intraperitoneal free air scattered throughout the abdomen and below the diaphragm. There is a gas and fluid containing umbilical hernia. There is a peritoneal dialysis catheter from a left central pelvic approach coiled in the central left abdomen with trace surrounding fluid. Lymphadenopathy: None. Pelvic viscera: The bladder, prostate, and seminal vesicles are normal as imaged. Skeletal structures: No lytic or blastic lesions are seen. IMPRESSION: 1. Findings are consistent with mild acute diverticulitis of the distal descending/proximal sigmoid colon. There is no evidence of abscess. 2. A peritoneal dialysis catheter is present in the left ventral abdomen. Numerous small foci of intraperitoneal free air are nonspecific and likely related to the presence of an indwelling catheter. Clinical correlation will be essential. 3. Trace free fluid is likely related to peritoneal dialysis. 4. Hepatomegaly and severe hepatic steatosis. 5. The left kidney is surgically absent. 6. Mild splenomegaly. 7. Additional findings as above. Electronically signed by: Roddy Oscar M.D. 05/06/2017 11:13 AM Dictated Date/Time: 05/06/2017 11:07 AM Laboratory Results 05/06/17 10:40 Red Blood Count 4.07, Mean Corpuscular Volume 91.4, Mean Corpuscular Hemoglobin 30.7, Mean Corpuscular Hemoglobin Concent 33.6, Mean Platelet Volume 11.2, Neutrophils (%) (Auto) 79.6, Lymphocytes (%) (Auto) 11.0, Monocytes (%) (Auto) 7.0, Eosinophils (%) (Auto) 1.6, Basophils (%) (Auto) 0.2, Neutrophils # (Auto) 7.07, Lymphocytes # (Auto) 0.98, Monocytes # (Auto) 0.62, Eosinophils # (Auto) 0.14, Basophils # (Auto) 0.02 05/06/17 10:40 Test 05/06/17 10:15 05/06/17 10:40 05/06/17 10:51 05/06/17 13:00 Peritoneal Fluid Color STRAW Peritoneal Fluid Appearance HAZY Peritoneal Fluid WBC 6828 /uL (0-300) Peritoneal Fluid RBC < 3000 /uL Peritoneal Fld Mononuclear WBCs (%) 10.6 % Peritoneal Fld Polynuclear WBCs (%) 89.4 % Peritoneal Fluid Total Protein 0.4 g/dl Peritoneal Fluid Glucose 2528 mg/dl White Blood Count 8.88 K/uL (4.8-10.8) Red Blood Count 4.07 M/uL (4.7-6.1) Hemoglobin 12.5 g/dL (14.0-18.0) Hematocrit 37.2 % (42-52) Mean Corpuscular Volume 91.4 fL (80-100) Mean Corpuscular Hemoglobin 30.7 pg (25-34) Mean Corpuscular Hemoglobin Concent 33.6 g/dl (32-36) Platelet Count 213 K/uL (130-400) Mean Platelet Volume 11.2 fL (7.4-10.4) Neutrophils (%) (Auto) 79.6 % Lymphocytes (%) (Auto) 11.0 % Monocytes (%) (Auto) 7.0 % Eosinophils (%) (Auto) 1.6 % Basophils (%) (Auto) 0.2 % Neutrophils # (Auto) 7.07 K/uL (1.4-6.5) Lymphocytes # (Auto) 0.98 K/uL (1.2-3.4) Monocytes # (Auto) 0.62 K/uL (0.11-0.59) Eosinophils # (Auto) 0.14 K/uL (0-0.5) Basophils # (Auto) 0.02 K/uL (0-0.2) RDW Standard Deviation 50.0 fL (36.4-46.3) RDW Coefficient of Variation 14.9 % (11.5-14.5) Immature Granulocyte % (Auto) 0.6 % Immature Granulocyte # (Auto) 0.05 K/uL (0.00-0.02) Anion Gap 9.0 mmol/L (3-11) Est Creatinine Clear Calc Drug Dose 13.7 ml/min Estimated GFR () 7.9 Estimated GFR (Non- 6.8 BUN/Creatinine Ratio 5.0 (10-20) Lactic Acid Level 0.7 mmol/L (0.4-2.0) Calcium Level 9.1 mg/dl (8.5-10.1) Total Bilirubin 0.6 mg/dl (0.2-1) Direct Bilirubin 0.1 mg/dl (0-0.2) Aspartate Amino Transf (AST/SGOT) 19 U/L (15-37) Alanine Aminotransferase (ALT/SGPT) 41 U/L (12-78) Alkaline Phosphatase 79 U/L (45-117) Total Protein 7.4 gm/dl (6.4-8.2) Albumin 3.6 gm/dl (3.4-5.0) Lipase 342 U/L (73-393) Venous Blood pH 7.38 (7.36-7.41) Venous Blood Partial Pressure CO2 40 mmHg (38.0-50.0) Venous Blood Partial Pressure O2 64 mmHg Venous Blood HCO3 24 mmol/L Venous Blood Oxygen Saturation 91.2 % Venous Blood Base Excess -1.5 mEq/L Urine Color YELLOW Urine Appearance CLEAR (CLEAR) Urine pH 6.0 (4.5-7.5) Urine Specific Onset 1.020 (1.000-1.030) Urine Protein 3+ (NEG) Urine Glucose (UA) 2+ (NEG) Urine Ketones NEG (NEG) Urine Occult Blood 2+ (NEG) Urine Nitrite NEG (NEG) Urine Bilirubin NEG (NEG) Urine Urobilinogen NEG (NEG) Urine Leukocyte Esterase NEG (NEG) Urine WBC (Auto) 1-5 /hpf (0-5) Urine RBC (Auto) 0-4 /hpf (0-4) Urine Hyaline Casts (Auto) 1-5 /lpf (0-5) Urine Epithelial Cells (Auto) 10-20 /lpf (0-5) Urine Bacteria (Auto) NEG (NEG) Laboratory results reviewed by me Medications Administered Medications (Trade) Dose Ordered Sig/Leland Route Start Time Stop Time Status Last Admin Dose Admin Ondansetron HCl (Zofran Inj) 4 mg NOW STAT IV 05/06/17 10:11 05/06/17 10:18 DC 05/06/17 10:51 4 MG Morphine Sulfate (MoRPHine SULFATE INJ) 4 mg NOW STAT IV 05/06/17 10:11 05/06/17 10:19 DC 05/06/17 10:51 4 MG Ceftriaxone Sodium (Rocephin Inj) 1 gm NOW STAT IV 05/06/17 13:12 05/06/17 13:43 DC 05/06/17 14:30 1 GM Metoclopramide HCl (Reglan Inj) 10 mg NOW STAT IV. 05/06/17 14:21 05/06/17 14:22 DC 05/06/17 14:30 10 MG Morphine Sulfate (MoRPHine SULFATE INJ) 4 mg NOW STAT IV 05/06/17 14:21 05/06/17 14:22 DC 05/06/17 14:30 4 MG Metronidazole (Flagyl / Nss) 500 mg NOW STAT IV 05/06/17 14:21 05/06/17 14:28 DC 05/06/17 15:26 500 MG ED Course 0954: The patient was evaluated in room B5. A complete history and physical exam was performed. 1312: I reevaluated the patient, and he was doing well. I updated him on the results. 1330: Discussed the patient's case with Dr. Amado. The patient will be evaluated for further treatment and disposition. 1355: Upon reexamination, the patient was having some abdominal discomfort. I discussed the test results and treatment plan with him. The patient will be evaluated for further management. Medical Decision The patient is a 51 year old white male with a past medical history of HTN, CKD stage 5 with PD, DM, and hypothyroid who presents to the ED with a cc of constant abdominal pain and cloudy fluid after doing dialysis this morning. Differential diagnosis: Etiologies such as SBP, appendicitis, diverticulitis, PUD, biliary pathology, UTI, pancreatitis, obstruction, mesenteric ischemia, aortic pathology, infections, inflammatory bowel disease, renal colic, as well as others were entertained. Patient was seen and evaluated the bedside. Patient is a prior history of renal cell carcinoma status post nephrectomy. Patient does have partner dialysis. Patient did call his dialysis nurse today and the patient told that he was having some cloudy dialysate coming from his PD catheter. Patient does have some mild suprapubic discomfort. Patient insertion site looks clean dry and intact. Patient did have blood work, blood cultures, urinalysis and CT abdomen pelvis in the dialysate was sent off for analysis also. Patient's white blood cell count within normal limits at 8000. Patient had a normal VBG and lactate. Patient creatinine elevated at 8 which is likely from his chronic kidney disease. Patient's LFTs and lipase within normal limits. Patient CT abdomen pelvis likely consistent with diverticulitis. There is an absent left kidney and there is some small amount of free air or which is likely related to the indwelling peritoneal dialysis catheter. Patient's ascitic fluid is likely consistent with an SBP. Patient was given Rocephin. Patient was also given some Flagyl. I did discuss the diverticulitis with the admitting hospitalist and discussed the may need to change his cephalosporin. Patient did have some mild headache and nausea as the patient was given additional pain meds and anti- medics. Medication Reconcilliation Current Medication List: was personally reviewed by me Blood Pressure Screening Patient's blood pressure: Elevated blood pressure Monitored by the hospitalist. Consults Time Called: 1325 Consulting Physician: Dr. Amado Returned Call: 1330 Discussed the patient's case with Dr. Amado. The patient will be evaluated for further treatment and disposition. Impression Primary Impression: SBP (spontaneous bacterial peritonitis) Additional Impression: Diverticulitis Scribe Attestation The scribe's documentation has been prepared under my direction and personally reviewed by me in its entirety. I confirm that the note above accurately reflects all work, treatment, procedures, and medical decision making performed by me. Departure Information Dispostion Being Evaluated By Hospitalist Referrals Xander Barreto D.O. (PCP) Patient Instructions My [facility] Problem Qualifiers
[2017-05-06 11:02] LABS: BASO % 0.2 %; BASO ABS # 0.02 K/uL (0-0.2); EOS % 1.6 %; EOS ABS # 0.14 K/uL (0-0.5); HEMATOCRIT 37.2 % (42-52); HEMOGLOBIN 12.5 g/dL (14.0-18.0); IG# 0.05 K/uL (0.00-0.02); LYMPH ABS # 0.98 K/uL (1.2-3.4); MEAN CELL VOLUME 91.4 fL (80-100); MEAN CORPUSCULAR HEMOGLOBIN 30.7 pg (25-34); MEAN CORPUSCULAR HGB CONC 33.6 g/dl (32-36); MEAN PLATELET VOLUME 11.2 fL (7.4-10.4); MONO ABS # 0.62 K/uL (0.11-0.59); NEUT % 79.6 %; NEUT ABS # 7.07 K/uL (1.4-6.5); PLATELET COUNT 213 K/uL (130-400); RED CELL DISTRIBUTION WIDTH CV 14.9 % (11.5-14.5); WHITE BLOOD COUNT 8.88 K/uL (4.8-10.8)
--- NOTE | 2017-05-06 11:14 | DIAGNOSTIC IMAGING REPORT ---
CT SCAN OF THE ABDOMEN AND PELVIS WITHOUT IV CONTRAST CLINICAL HISTORY: Lower abdominal pain peritoneal dialysis patient. COMPARISON STUDY: Abdominal CT dated 12/18/2016. TECHNIQUE: CT scan of the abdomen and pelvis is performed from the lung bases to the proximal femora. Images are reviewed in the axial, sagittal, and coronal planes. IV contrast was not administered for this examination as per the referring clinician. Note that the examination was performed in suboptimal fashion without oral and IV contrast. A dose lowering technique was utilized adhering to the principles of ALARA. CT DOSE: 1116.27 mGy.cm FINDINGS: Lung bases: The heart is normal in size and without pericardial effusion. The lung bases are clear noting dependent atelectasis. There is a tiny hiatal hernia. Liver: The unenhanced liver is enlarged, measuring 19 cm in length. The liver demonstrates diffusely diminished attenuation consistent with severe hepatic steatosis. Fatty sparing is seen adjacent to gallbladder fossa. There is no intrahepatic biliary ductal dilatation. Gallbladder: Unremarkable. Spleen: The spleen is mildly enlarged measuring 14.1 cm in length. There are small calcified splenic granulomas. Pancreas: Unremarkable. Adrenal glands: Unremarkable. Kidneys: The left kidney is not identified and presumed surgically absent. The right kidney demonstrates cortical atrophy and is without hydronephrosis. There are no renal calculi identified. A 10 mm exophytic cyst arises from the lower pole of the right kidney as seen on image #219.. Abdominal vasculature: The abdominal aorta is normal in course and caliber noting mild atherosclerotic calcification. Bowel: There are scattered colonic diverticula. Inflammatory stranding seen around a diverticulum in the distal descending/proximal sigmoid colon on image #372. The appearance suggests mild acute diverticulitis. There is no evidence of abscess. No bowel obstruction is seen. The appendix is well-visualized and normal. Peritoneum: There are nonspecific foci of intraperitoneal free air scattered throughout the abdomen and below the diaphragm. There is a gas and fluid containing umbilical hernia. There is a peritoneal dialysis catheter from a left central pelvic approach coiled in the central left abdomen with trace surrounding fluid. Lymphadenopathy: None. Pelvic viscera: The bladder, prostate, and seminal vesicles are normal as imaged. Skeletal structures: No lytic or blastic lesions are seen. IMPRESSION: 1. Findings are consistent with mild acute diverticulitis of the distal descending/proximal sigmoid colon. There is no evidence of abscess. 2. A peritoneal dialysis catheter is present in the left ventral abdomen. Numerous small foci of intraperitoneal free air are nonspecific and likely related to the presence of an indwelling catheter. Clinical correlation will be essential. 3. Trace free fluid is likely related to peritoneal dialysis. 4. Hepatomegaly and severe hepatic steatosis. 5. The left kidney is surgically absent. 6. Mild splenomegaly. 7. Additional findings as above. Electronically signed by: Roddy Oscar M.D. 05/06/2017 11:13 AM Dictated Date/Time: 05/06/2017 11:07 AM
[2017-05-06] MEDS ORDERED: ZOLP10TA PO (11:15)
[2017-05-06] MEDS ORDERED: ASPI-435 PO (11:15)
[2017-05-06 11:32] LABS: ALBUMIN 3.6 gm/dl (3.4-5.0); CALCIUM 9.1 mg/dl (8.5-10.1); CREATININE 8.11 mg/dl (0.60-1.40); POTASSIUM 3.4 mmol/L (3.5-5.1); TOTAL PROTEIN 7.4 gm/dl (6.4-8.2)
--- NOTE | 2017-05-06 12:31 | DIAGNOSTIC IMAGING REPORT ---
PA CHEST RADIOGRAPH AND UPRIGHT AND SUPINE AP RADIOGRAPHS OF THE ABDOMEN CLINICAL HISTORY: Abdominal pain. COMPARISON STUDY: Chest radiograph December 01, [address] of the abdomen and pelvis May 06, 2017. FINDINGS: No pneumothorax or pleural effusion is noted. There is no evidence for pulmonary edema. Cardiomediastinal silhouette is stable. A calcified left upper lobe granuloma is unchanged. Pneumoperitoneum is noted. Bowel gas pattern is normal. Peritoneal dialysis catheter within the left lower quadrant is noted. IMPRESSION: 1. Pneumoperitoneum as shown on CT performed earlier today. Although nonspecific, this is likely related to the indwelling peritoneal dialysis catheter. 2. No evidence for a bowel obstruction. 3. No acute cardiopulmonary findings. Electronically signed by: Ajay Montiel M.D. 05/06/2017 12:29 PM Dictated Date/Time: 05/06/2017 12:27 PM
[2017-05-06] MEDS ORDERED: CEFTRIAXONE SOD INJ 1 GM ADDVIAL IV STA (13:12)
[2017-05-06] MEDS ORDERED: METOCLOPRAMIDE HCL INJ 5 MG/ML 2 ML VIAL IV. STA (14:21)
[2017-05-06] MEDS ORDERED: METRONIDAZOLE 500MG / 100ML NSS IV STA (14:21)
[2017-05-06] MEDS ORDERED: ACETAMINOPHEN 325 MG TAB PO PRN (14:30)
[2017-05-06] MEDS ORDERED: POLYETHYLENE (MIRALAX) 17 GM PACK PO PRN (14:30)
--- NOTE | 2017-05-06 14:41 | History and Physical ---
History & Physical Date & Time of Service: May 06, 2017 at 14:33 Chief Complaint: Cloudy Pd Fluid Primary Care Physician: Xander Barreto D.O. History of Present Illness Source: patient 51-year-old male with a past medical history of hypertension, diabetes, end- stage renal disease with peritoneal dialysis presented to the ER complaints of abdominal pain which started 2 days ago and noticed cloudy peritoneal fluid this morning. Abdominal pain is in the mid abdominal area with no radiation, worse on standing associated with nausea but no vomiting. Denies any diarrhea/ bloody stools/melena. Denies any fevers or chills. Denies any alcohol use or smoking history. He noticed today that his peritoneal fluid was more cloudy than usual but denies any redness or tenderness at the site of the peritoneal dialysis catheter. Past Medical/Surgical History Medical Problems: (1) Benign hypertension Status: Chronic (2) Hypothyroidism Status: Chronic (3) R index finger surgery Status: Resolved Diabetes FSGS CKD stage 3 with PD Surgery: Nephrectomy of left kidney for RCC Family History Cancer Diabetes mellitus Heart disease Hypertension Kidney disease Kidney stones Social History Smoking Status: Never Smoker Drug Use: none Marital Status: Occupational Status: employed Allergies Coded Allergies: Doxycycline (Verified Allergy, Severe, RASH, 05/06/17) phlebitis and pain with IV administration Penicillins (Verified Allergy, Mild, RASH, HIVES, ITCHING, 05/06/17) Home Medications Scheduled Aspirin (Aspirin 81), 81 MG PO HS Ergocalciferol (Vitamin D 39530 Unit), 1 CAP PO WK Tamsulosin Hcl (Flomax), 0.4 MG PO HS Zolpidem Tartrate (Ambien), 10 MG PO HS Review of Systems Constitutional: No chills ENT: No hearing loss Respiratory: No cough, No sputum, No shortness of breath Cardiovascular: No chest pain, No palpitations Abdomen: + pain (mid abodminal and suprapubic), + nausea, No vomiting, No diarrhea, No constipation, No GI bleeding Musculoskeletal: No joint pain Genitourinary - Male: No hematuria, No dysuria, No urinary frequency, No urinary urgency Neurologic: No memory loss Psychiatric: No depression symptoms Endocrine: No fatigue Hematologic / Lymphatic: No abnormal bleeding/bruising Integumentary: No rash Physical Exam Vital Signs Date Time Temp Pulse Resp B/P (MAP) Pulse Ox O2 Delivery O2 Flow Rate FiO2 05/06/17 13:16 55 20 149/91 95 Room Air 05/06/17 11:40 59 20 142/99 95 Room Air 05/06/17 09:45 36.9 71 18 165/89 96 Room Air General Appearance: WD/WN, no apparent distress Eyes: normal inspection ENT: normal ENT inspection, hearing grossly normal Neck: supple Respiratory/Chest: chest non-tender, lungs clear, normal breath sounds, no respiratory distress, no accessory muscle use Cardiovascular: regular rate, rhythm Abdomen/GI: normal bowel sounds, + tenderness (RLQ , suprapubic and LLQ ), + pertinent finding (peritoneal catheter in LLQ , no erythema or tenderness at the site) Back: normal inspection Extremities/Musculoskelatal: no pedal edema Neurologic/Psych: alert, normal mood/affect, oriented x 3 Skin: normal color Diagnostics Laboratory Results Results Past 24 Hours Test 05/06/17 10:15 05/06/17 10:40 05/06/17 10:51 05/06/17 13:00 Range/Units Peritoneal Fluid Color STRAW Peritoneal Fluid Appearance HAZY Peritoneal Fluid WBC 6828 0-300 /uL Peritoneal Fluid RBC < 3000 /uL Peritoneal Fld Mononuclear WBCs (%) 10.6 % Peritoneal Fld Polynuclear WBCs (%) 89.4 % Peritoneal Fluid Total Protein 0.4 g/dl Peritoneal Fluid Glucose 2528 mg/dl White Blood Count 8.88 4.8-10.8 K/uL Red Blood Count 4.07 4.7-6.1 M/uL Hemoglobin 12.5 14.0-18.0 g/dL Hematocrit 37.2 42-52 % Mean Corpuscular Volume 91.4 80-100 fL Mean Corpuscular Hemoglobin 30.7 25-34 pg Mean Corpuscular Hemoglobin Concent 33.6 32-36 g/dl Platelet Count 213 130-400 K/uL Mean Platelet Volume 11.2 7.4-10.4 fL Neutrophils (%) (Auto) 79.6 % Lymphocytes (%) (Auto) 11.0 % Monocytes (%) (Auto) 7.0 % Eosinophils (%) (Auto) 1.6 % Basophils (%) (Auto) 0.2 % Neutrophils # (Auto) 7.07 1.4-6.5 K/uL Lymphocytes # (Auto) 0.98 1.2-3.4 K/uL Monocytes # (Auto) 0.62 0.11-0.59 K/uL Eosinophils # (Auto) 0.14 0-0.5 K/uL Basophils # (Auto) 0.02 0-0.2 K/uL RDW Standard Deviation 50.0 36.4-46.3 fL RDW Coefficient of Variation 14.9 11.5-14.5 % Immature Granulocyte % (Auto) 0.6 % Immature Granulocyte # (Auto) 0.05 0.00-0.02 K/uL Sodium Level 138 136-145 mmol/L Potassium Level 3.4 3.5-5.1 mmol/L Chloride Level 104 98-107 mmol/L Carbon Dioxide Level 25 21-32 mmol/L Anion Gap 9.0 3-11 mmol/L Blood Urea Nitrogen 41 7-18 mg/dl Creatinine 8.11 0.60-1.40 mg/dl Est Creatinine Clear Calc Drug Dose 13.7 ml/min Estimated GFR () 7.9 Estimated GFR (Non- 6.8 BUN/Creatinine Ratio 5.0 10-20 Random Glucose 120 70-99 mg/dl Lactic Acid Level 0.7 0.4-2.0 mmol/L Calcium Level 9.1 8.5-10.1 mg/dl Total Bilirubin 0.6 0.2-1 mg/dl Direct Bilirubin 0.1 0-0.2 mg/dl Aspartate Amino Transf (AST/SGOT) 19 15-37 U/L Alanine Aminotransferase (ALT/SGPT) 41 12-78 U/L Alkaline Phosphatase 79 45-117 U/L Total Protein 7.4 6.4-8.2 gm/dl Albumin 3.6 3.4-5.0 gm/dl Lipase 342 73-393 U/L Venous Blood pH 7.38 7.36-7.41 Venous Blood Partial Pressure CO2 40 38.0-50.0 mmHg Venous Blood Partial Pressure O2 64 mmHg Venous Blood HCO3 24 mmol/L Venous Blood Oxygen Saturation 91.2 % Venous Blood Base Excess -1.5 mEq/L Urine Color YELLOW Urine Appearance CLEAR CLEAR Urine pH 6.0 4.5-7.5 Urine Specific [place] 1.020 1.000-1.030 Urine Protein 3+ NEG Urine Glucose (UA) 2+ NEG Urine Ketones NEG NEG Urine Occult Blood 2+ NEG Urine Nitrite NEG NEG Urine Bilirubin NEG NEG Urine Urobilinogen NEG NEG Urine Leukocyte Esterase NEG NEG Urine WBC (Auto) 1-5 0-5 /hpf Urine RBC (Auto) 0-4 0-4 /hpf Urine Hyaline Casts (Auto) 1-5 0-5 /lpf Urine Epithelial Cells (Auto) 10-20 0-5 /lpf Urine Bacteria (Auto) NEG NEG Microbiology Results 05/06/17 Blood Culture, Received Pending 05/06/17 Blood Culture, Received Pending 05/06/17 Gram Stain - Final, Resulted 05/06/17 Wound Culture, Resulted Pending Diagnostic Radiology [~ rep ct add3]] PA CHEST RADIOGRAPH AND UPRIGHT AND SUPINE AP RADIOGRAPHS OF THE ABDOMEN CLINICAL HISTORY: Abdominal pain. COMPARISON STUDY: Chest radiograph December 01, [address] of the abdomen and pelvis May 06, 2017. FINDINGS: No pneumothorax or pleural effusion is noted. There is no evidence for pulmonary edema. Cardiomediastinal silhouette is stable. A calcified left upper lobe granuloma is unchanged. Pneumoperitoneum is noted. Bowel gas pattern is normal. Peritoneal dialysis catheter within the left lower quadrant is noted. IMPRESSION: 1. Pneumoperitoneum as shown on CT performed earlier today. Although nonspecific, this is likely related to the indwelling peritoneal dialysis catheter. 2. No evidence for a bowel obstruction. 3. No acute cardiopulmonary findings. Electronically signed by: Ajay Montiel M.D. 05/06/2017 12:29 PM [~ rep ct add3]] CT SCAN OF THE ABDOMEN AND PELVIS WITHOUT IV CONTRAST CLINICAL HISTORY: Lower abdominal pain peritoneal dialysis patient. COMPARISON STUDY: Abdominal CT dated 12/18/2016. TECHNIQUE: CT scan of the abdomen and pelvis is performed from the lung bases to the proximal femora. Images are reviewed in the axial, sagittal, and coronal planes. IV contrast was not administered for this examination as per the referring clinician. Note that the examination was performed in suboptimal fashion without oral and IV contrast. A dose lowering technique was utilized adhering to the principles of ALARA. CT DOSE: 1116.27 mGy.cm FINDINGS: Lung bases: The heart is normal in size and without pericardial effusion. The lung bases are clear noting dependent atelectasis. There is a tiny hiatal hernia. Liver: The unenhanced liver is enlarged, measuring 19 cm in length. The liver demonstrates diffusely diminished attenuation consistent with severe hepatic steatosis. Fatty sparing is seen adjacent to gallbladder fossa. There is no intrahepatic biliary ductal dilatation. Gallbladder: Unremarkable. Spleen: The spleen is mildly enlarged measuring 14.1 cm in length. There are small calcified splenic granulomas. Pancreas: Unremarkable. Adrenal glands: Unremarkable. Kidneys: The left kidney is not identified and presumed surgically absent. The right kidney demonstrates cortical atrophy and is without hydronephrosis. There are no renal calculi identified. A 10 mm exophytic cyst arises from the lower pole of the right kidney as seen on image #[id number].. Abdominal vasculature: The abdominal aorta is normal in course and caliber noting mild atherosclerotic calcification. Bowel: There are scattered colonic diverticula. Inflammatory stranding seen around a diverticulum in the distal descending/proximal sigmoid colon on image #[id number]. The appearance suggests mild acute diverticulitis. There is no evidence of abscess. No bowel obstruction is seen. The appendix is well-visualized and normal. Peritoneum: There are nonspecific foci of intraperitoneal free air scattered throughout the abdomen and below the diaphragm. There is a gas and fluid containing umbilical hernia. There is a peritoneal dialysis catheter from a left central pelvic approach coiled in the central left abdomen with trace surrounding fluid. Lymphadenopathy: None. Pelvic viscera: The bladder, prostate, and seminal vesicles are normal as imaged. Skeletal structures: No lytic or blastic lesions are seen. IMPRESSION: 1. Findings are consistent with mild acute diverticulitis of the distal descending/proximal sigmoid colon. There is no evidence of abscess. 2. A peritoneal dialysis catheter is present in the left ventral abdomen. Numerous small foci of intraperitoneal free air are nonspecific and likely related to the presence of an indwelling catheter. Clinical correlation will be essential. 3. Trace free fluid is likely related to peritoneal dialysis. 4. Hepatomegaly and severe hepatic steatosis. 5. The left kidney is surgically absent. 6. Mild splenomegaly. 7. Additional findings as above. Electronically signed by: Roddy Oscar M.D. 05/06/2017 11:13 AM Dictated Date/Time: 05/06/2017 11:07 AM Impression Assessment and Plan 51-year-old male with a past medical history of hypertension, diabetes, hypothyroidism, end-stage renal disease with peritoneal dialysis presented to the ER complaints of abdominal pain which started 2 days ago and noticed cloudy peritoneal fluid this morning. Was found to have diverticulitis on abdominal CT. Peritonitis could be secondary to the diverticulitis. The peritoneal catheter site appears clean with no redness or exquisite tenderness but could be a potential source of infection too. Abdominal pain: Diverticulitis/Peritonitis: - CT abdomen and pelvis revealed mild acute colitis of the distal descending and proximal sigmoid colon with no evidence of abscess. - Peritoneal fluid with leukocytosis, cultures currently pending - Blood cultures pending - Ciprofloxacin and Flagyl for diverticulitis - Vancomycin and gentamicin via peritoneal dialysis fluid -Morphine as needed for pain control Chronic kidney disease stage V with PD - Creatinine at 8.11 - Consult Nephrology for ongoing PD H/o DM; diet controlled BPH: - Continue Flomax Full code Disposition: Admitted to telemetry Resident Physician Supervision Note: I interviewed and examined the patient. Discussed with Dr. Olivo and agree with findings and plan as documented in the note. Any exceptions or clarifications are listed here: None Documented By: Genaro Hernandez lower abdominal pain no fevers. feels like he has to have BM but doesn't vitals noted nad abd soft lower abdominal tenderness > elsewehre but mild diffuse moderate lower no guarding / rebound abdominal pain - diverticulitis > peritonitis vs both. obviously with risk of severity have to manage as peritonitis until proven otherwise. abx, nephro consult Level of Care Telemetry Resuscitation Status FULL RESUSCITATION VTE Prophylaxis VTE Risk Assessment Done? Y/N: Yes Risk Level: Moderate Given or contraindicated: Unfractionated heparin SQ Resident Tracking Resident Involvement: Resident Care Provided Care Provided: Adult Hospital Medicine
[2017-05-06 16:15] VITALS: BP 166/99; PULSE 98; TEMP 37.2; O2SAT 95; Ht 182.9 cm; Wt 109.8 kg
[2017-05-06] MEDS ORDERED: VANCOMYCIN CONSULT ACTIVE PRN (17:00)
[2017-05-06] MEDS ORDERED: DIALYSIS IP ONE ×2 (18:00)
[2017-05-06] MEDS ORDERED: GENTAMICIN IP ONE (18:00)
[2017-05-06] MEDS ORDERED: PERITONEAL 1.5% IP ONE ×2 (18:00)
[2017-05-06] MEDS ORDERED: VANCOMYCIN IP ONE (18:00)
[2017-05-06] MEDS ORDERED: SODIUM CHLOR 0.45% + 20MEQ KCL 1,000 ML IV SCH (18:00)
[2017-05-06] MEDS: MoRPHine SULFATE 2 MG/ML CARP IV PRN ×2 (18:22→22:32)
[2017-05-06] MEDS ORDERED: CIPROFLOXACIN CONSULT ACTIVE PRN (18:45)
[2017-05-06 19:05] VITALS: BP 163/98; PULSE 70; TEMP 37.5; O2SAT 95
[2017-05-06 19:50] VITALS: BP 163/98; PULSE 70; TEMP 37.5
[2017-05-06] MEDS ORDERED: PERITONEAL 1.5% IP SCH (20:00)
[2017-05-06] MEDS ORDERED: PERITONEAL 2.5% IP SCH (20:00)
[2017-05-06] MEDS ORDERED: VANCOMYCIN IP SCH ×2 (20:00)
[2017-05-06] MEDS ORDERED: GENTAMICIN IP SCH ×2 (20:00)
[2017-05-06] MEDS ORDERED: DIALYSIS IP SCH ×2 (20:00)
[2017-05-06] MEDS ORDERED: PNEUMOCOCCAL POLYSACCHARIDES 25 MCG/0.5 ML VIAL/SYR IM. ONE (20:15)
[2017-05-06] MEDS ORDERED: PNEUMOCOCCAL ADMINISTRATION CHARGE ONE (20:15)
[2017-05-06 20:26] LABS: INR 0.9 (0.9-1.1)
[2017-05-06 20:44] VITALS: BP 163/98; PULSE 70; TEMP 37.5
--- NOTE | 2017-05-06 20:54 | Nephrology Consultation ---
Nephrology Consultation Date & Providers Date of Consultation: May 06, 2017. Primary Care Provider: Xander Barreto D.O. Referring Provider: Reason for Consultation Evaluation and management for ESRD on PD History of Present Illness Mr. 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 Nephrology consult was requested to manage PD and peritonitis. EMR records were reviewed in detail during visit. Sesar has ESRD secondary to FSGS and unilateral nephrectomy for RCC on PD has been on PD for last almost 6 months without complication and did not have any episode of peritonitis. He had Buried PD catheter placed on October 13, 2015 and was externalized on June 14 2015 to initiate dialysis but catheter did not drain appropriately for PD and developed tunnel infection, catheter was removed and eventually started on Hemo but later on had PD catheter placed again and switched to PD. He has been doing his regular treatment, he usually skips Saturday. Had dialysis last night. He is on [facility], with 1500 dwell volume, 5 exchanges. Sesar started to have Lower abdominal pain 3 days ago which has slowly worsened over last 3 days. He has been having regular BM. No fever, chills, vomiting , diarrhea. This morning his dialysis effuent was cloudy. he called PD nurse who advised him to come to ED. PD fluid WBC count was >6000, gram stain pending. He denies any breach in technique. CT A/P on admission was concerning for diverticulitis. No leukocytosis, Hb stable. BP slightly elevated. Electrolyte and volume status acceptable. He continues to make decent amount of urine. pt was kept on NPO, started on IV fluid and Flagyl and cipro empirically. Allergies Coded Allergies: Doxycycline (Verified Allergy, Severe, RASH, 05/06/17) phlebitis and pain with IV administration Penicillins (Verified Allergy, Mild, RASH, HIVES, ITCHING, 05/06/17) Inpatient Medications Current Inpatient Medications Medications (Trade) Dose Ordered Sig/[place] Route Start Time Stop Time Status Last Admin Dose Admin Acetaminophen (Tylenol Tab) 650 mg Q4H PRN PO 05/06/17 14:30 06/05/17 14:29 Ondansetron HCl (Zofran Inj) 4 mg Q6H PRN IV 05/06/17 14:30 06/05/17 14:29 Polyethylene (Miralax Powder Packet) 17 gm DAILY PRN PO 05/06/17 14:30 06/05/17 14:29 Aspirin (Ecotrin Tab) 81 mg HS PO 05/06/17 21:00 06/05/17 20:59 Tamsulosin HCl (Flomax Cap) 0.4 mg HS PO 05/06/17 21:00 06/05/17 20:59 Zolpidem Tartrate (Ambien Tab) 10 mg HS PO 05/06/17 21:00 06/05/17 20:59 Ciprofloxacin/ Dextrose 400 mg/ Prmx 200 ml @ 100 mls/hr Q24H IV 05/06/17 20:00 05/16/17 19:59 Metronidazole 500 mg/Prmx 100 ml @ 100 mls/hr Q8H IV 05/06/17 22:00 05/16/17 13:59 Morphine Sulfate (MoRPHine SULFATE INJ) 2 mg Q4H PRN IV 05/06/17 17:00 05/20/17 16:59 05/06/17 18:22 2 MG Ciprofloxacin (Consult) 1 ea UD PRN N/A 05/06/17 18:45 06/05/17 18:44 Heparin Sodium (Porcine) (Heparin Sq 5000 Unit/0.5ml) 5,000 unit Q8 SQ 05/06/17 22:00 06/05/17 21:59 UNV Vancomycin HCl 2000 mg/ Gentamicin Sulfate 65 mg/ [facility] 2,041.625 ml @ 0 mls/ hr TODAY@2000 IP 05/06/17 20:00 05/07/17 02:00 Family History Cancer Diabetes mellitus Heart disease Hypertension Kidney disease Kidney stones Social History Smoking Status: Never Smoker Drug Use: none Marital Status: Occupation: employed Review of Systems A complete review of systems was performed. Pertinent positives are noted above. All other systems are negative. Physical Exam Date Time Temp Pulse Resp B/P (MAP) Pulse Ox O2 Delivery O2 Flow Rate FiO2 05/06/17 16:15 37.2 98 20 166/99 95 Room Air 05/06/17 15:54 79 145/108 95 05/06/17 14:35 75 20 132/101 98 Room Air 05/06/17 13:16 55 20 149/91 95 Room Air 05/06/17 11:40 59 20 142/99 95 Room Air 05/06/17 09:45 36.9 71 18 165/89 96 Room Air GENERAL: middle aged male, AAA x 3, pleasant, pale, not in any distress. HEENT: Atraumatic, normocephalic. NECK: Supple, no JVD, no carotid bruit appreciated. ENT: No sinus tenderness MOUTH and THROAT: Moist oral mucosa, no oral ulcer or pharyngeal erythema RESPIRATORY: Normal breathing efforts, no accessory muscle use, clear to auscultation bilaterally, no wheezes or rales. CARDIOVASCULAR: S1, S2 normal, rate rhythm regular. ABDOMEN: Soft, mild diffuse tenderness in lower abdomen, positive bowel sound. Mild erythema at PD catheter site but non tender, no drainage, catheter tunnel non tender. MUSCULOSKELETAL: No CVA tenderness. No joint swelling, erythema or tenderness. Normal range of motion. SKIN: No skin rash EXTREMITY: No lower extremity edema NEURO: No gross focal neurological deficit, speech fluent. PSYCHIATRY: Normal mood and judgment Laboratory Results Last 24 Hours Test 05/06/17 10:15 05/06/17 10:40 05/06/17 10:51 05/06/17 13:00 Peritoneal Fluid Color STRAW Peritoneal Fluid Appearance HAZY Peritoneal Fluid WBC 6828 /uL Peritoneal Fluid RBC < 3000 /uL Peritoneal Fld Mononuclear WBCs (%) 10.6 % Peritoneal Fld Polynuclear WBCs (%) 89.4 % Peritoneal Fluid Total Protein 0.4 g/dl Peritoneal Fluid Glucose 2528 mg/dl White Blood Count 8.88 K/uL Red Blood Count 4.07 M/uL Hemoglobin 12.5 g/dL Hematocrit 37.2 % Mean Corpuscular Volume 91.4 fL Mean Corpuscular Hemoglobin 30.7 pg Mean Corpuscular Hemoglobin Concent 33.6 g/dl Platelet Count 213 K/uL Mean Platelet Volume 11.2 fL Neutrophils (%) (Auto) 79.6 % Lymphocytes (%) (Auto) 11.0 % Monocytes (%) (Auto) 7.0 % Eosinophils (%) (Auto) 1.6 % Basophils (%) (Auto) 0.2 % Neutrophils # (Auto) 7.07 K/uL Lymphocytes # (Auto) 0.98 K/uL Monocytes # (Auto) 0.62 K/uL Eosinophils # (Auto) 0.14 K/uL Basophils # (Auto) 0.02 K/uL RDW Standard Deviation 50.0 fL RDW Coefficient of Variation 14.9 % Immature Granulocyte % (Auto) 0.6 % Immature Granulocyte # (Auto) 0.05 K/uL Sodium Level 138 mmol/L Potassium Level 3.4 mmol/L Chloride Level 104 mmol/L Carbon Dioxide Level 25 mmol/L Anion Gap 9.0 mmol/L Blood Urea Nitrogen 41 mg/dl Creatinine 8.11 mg/dl Est Creatinine Clear Calc Drug Dose 13.7 ml/min Estimated GFR () 7.9 Estimated GFR (Non- 6.8 BUN/Creatinine Ratio 5.0 Random Glucose 120 mg/dl Lactic Acid Level 0.7 mmol/L Calcium Level 9.1 mg/dl Total Bilirubin 0.6 mg/dl Direct Bilirubin 0.1 mg/dl Aspartate Amino Transf (AST/SGOT) 19 U/L Alanine Aminotransferase (ALT/SGPT) 41 U/L Alkaline Phosphatase 79 U/L Total Protein 7.4 gm/dl Albumin 3.6 gm/dl Lipase 342 U/L Venous Blood pH 7.38 Venous Blood Partial Pressure CO2 40 mmHg Venous Blood Partial Pressure O2 64 mmHg Venous Blood HCO3 24 mmol/L Venous Blood Oxygen Saturation 91.2 % Venous Blood Base Excess -1.5 mEq/L Urine Color YELLOW Urine Appearance CLEAR Urine pH 6.0 Urine Specific [place] 1.020 Urine Protein 3+ Urine Glucose (UA) 2+ Urine Ketones NEG Urine Occult Blood 2+ Urine Nitrite NEG Urine Bilirubin NEG Urine Urobilinogen NEG Urine Leukocyte Esterase NEG Urine WBC (Auto) 1-5 /hpf Urine RBC (Auto) 0-4 /hpf Urine Hyaline Casts (Auto) 1-5 /lpf Urine Epithelial Cells (Auto) 10-20 /lpf Urine Bacteria (Auto) NEG Impression (1) ESRD on peritoneal dialysis (2) Anemia (3) Secondary hyperparathyroidism of renal origin (4) Diabetes mellitus (5) Peritonitis (6) Benign hypertension Sesar is a 51 y o M with ESRD on PD, admitted with peritonitis and possible diverticulitis. PD fluid study showed WBC>6000, pt noticed cloudy effluent. BP slightly elevated but electrolyte . volume status acceptable. No leukocytosis. had A/P CT suggestive of diverticulitis, pt was kept on NPO, started on IV fluid and Flagyl and cipro empirically. Recommendations --start antibiotic dwell for 6 h with Delflex 1.5%, add 2 gm Vanco and Gentamycin 0.6 mg/kg -- once antibiotic dwell complete, will start on Cycler for 5 exchanges with 1500 ml --DC IV fluid, pot is allowed to have sips of water and ice chips --start on Boost once start on PO --hold Phos binder for now --No need for BECKIE --dose meds for GFR <10 --check Vanco trough level in am Thank you for the consult. It was a pleasure to see
[2017-05-06] MEDS ORDERED: VANCOMYCIN INJ 1,000 MG in SODIUM CHLORIDE 0.9% 250ML 250 ML IV SCH (21:00)
[2017-05-06] MEDS: ZOLPIDEM TARTRATE 10 MG TAB PO SCH (21:00)
[2017-05-06] MEDS: TAMSULOSIN HCL 0.4 MG CAP PO SCH (21:10)
[2017-05-06] MEDS: CIPROFLOXACIN / D5W 400 MG in PREMIXED IN D5W 200 ML IV SCH (21:10)
[2017-05-06] MEDS: ASPIRIN 81 MG ECTAB PO SCH (21:10)
[2017-05-06] MEDS: HEPARIN SOD 5000 UNIT/0.5 ML CARP SQ SCH (22:31)
[2017-05-06] MEDS: METRONIDAZOLE / NSS 500 MG in PREMIXED NSS 100 ML IV SCH (23:17)
[2017-05-06 23:20] VITALS: BP 155/94; PULSE 77; TEMP 37.4; O2SAT 93
[2017-05-07] VITALS (10 sets, daily range): BP systolic 132–158; BP diastolic 78–99; PULSE 61–78; TEMP 36.6–37.1; O2SAT 93–97
[2017-05-07] MEDS: MoRPHine SULFATE 2 MG/ML CARP IV PRN ×4 (02:58→20:44)
[2017-05-07] MEDS: METRONIDAZOLE / NSS 500 MG in PREMIXED NSS 100 ML IV SCH ×4 (06:30→22:43)
[2017-05-07] MEDS: HEPARIN SOD 5000 UNIT/0.5 ML CARP SQ SCH ×3 (06:30→22:21)
[2017-05-07 07:47] LABS: HEMATOCRIT 36.2 % (42-52); HEMOGLOBIN 11.9 g/dL (14.0-18.0); MEAN CELL VOLUME 92.3 fL (80-100); MEAN CORPUSCULAR HEMOGLOBIN 30.4 pg (25-34); MEAN CORPUSCULAR HGB CONC 32.9 g/dl (32-36); MEAN PLATELET VOLUME 10.6 fL (7.4-10.4); PLATELET COUNT 192 K/uL (130-400); RED CELL DISTRIBUTION WIDTH CV 15.1 % (11.5-14.5); RED CELL DISTRIBUTION WIDTH SD 51.4 fL (36.4-46.3); WHITE BLOOD COUNT 9.41 K/uL (4.8-10.8)
[2017-05-07] MEDS: ONDANSETRON INJ 2 MG/ML 2 ML VIAL IV PRN ×2 (07:54→16:09)
[2017-05-07] MEDS ORDERED: PNEUMOCOCCAL POLYSACCHARIDES 25 MCG/0.5 ML VIAL/SYR IM. ONE (08:15)
[2017-05-07] MEDS ORDERED: PNEUMOCOCCAL ADMINISTRATION CHARGE ONE (08:15)
[2017-05-07 08:35] LABS: CALCIUM 8.6 mg/dl (8.5-10.1); CREATININE 7.02 mg/dl (0.60-1.40); POTASSIUM 3.4 mmol/L (3.5-5.1)
[2017-05-07] MEDS: POTASSIUM CHLORIDE 20 MEQ/15 ML UDC PO STA ×2 (08:58→09:39)
--- NOTE | 2017-05-07 11:30 | Family Medicine Progress Note ---
Progress Note Date of Service May 07, 2017. Subjective Pt evaluation today including: conversation w/ patient, physical exam, chart review, lab review Pain: reports persistent lower abdominal pain PO Intake: NPO with sips/ice chips Voiding: no voiding problems This AM reports persistent lower abdominal pain without improvement. Associated with nausea. Denies any f/c, vomiting. BM prior to arrival that was non-bloody and normal Sinus on telemetry in 60s Constitutional: No fever, No chills Respiratory: No shortness of breath Cardiovascular: No chest pain Abdomen: + pain, + nausea, No vomiting, No diarrhea, No constipation Male : No dysuria Medications Current Inpatient Medications Medications (Trade) Dose Ordered Sig/Leland Route Start Time Stop Time Status Last Admin Dose Admin Acetaminophen (Tylenol Tab) 650 mg Q4H PRN PO 05/06/17 14:30 06/05/17 14:29 Ondansetron HCl (Zofran Inj) 4 mg Q6H PRN IV 05/06/17 14:30 06/05/17 14:29 05/07/17 07:54 4 MG Polyethylene (Miralax Powder Packet) 17 gm DAILY PRN PO 05/06/17 14:30 06/05/17 14:29 Aspirin (Ecotrin Tab) 81 mg HS PO 05/06/17 21:00 06/05/17 20:59 05/06/17 21:10 81 MG Tamsulosin HCl (Flomax Cap) 0.4 mg HS PO 05/06/17 21:00 06/05/17 20:59 05/06/17 21:10 0.4 MG Zolpidem Tartrate (Ambien Tab) 10 mg HS PO 05/06/17 21:00 06/05/17 20:59 Ciprofloxacin/ Dextrose 400 mg/ Prmx 200 ml @ 100 mls/hr Q24H IV 05/06/17 20:00 05/16/17 19:59 05/06/17 21:10 100 MLS/HR Metronidazole 500 mg/Prmx 100 ml @ 100 mls/hr Q8H IV 05/06/17 22:00 05/16/17 13:59 05/07/17 06:30 100 MLS/HR Morphine Sulfate (MoRPHine SULFATE INJ) 2 mg Q4H PRN IV 05/06/17 17:00 05/20/17 16:59 05/07/17 02:58 2 MG Ciprofloxacin (Consult) 1 ea UD PRN N/A 05/06/17 18:45 06/05/17 18:44 Heparin Sodium (Porcine) (Heparin Sq 5000 Unit/0.5ml) 5,000 unit Q8 SQ 05/06/17 22:00 06/05/17 21:59 05/07/17 06:30 5,000 UNIT Objective Vital Signs Date Time Temp Pulse Resp B/P (MAP) Pulse Ox O2 Delivery O2 Flow Rate FiO2 05/07/17 08:00 Room Air 05/07/17 07:51 37.1 65 20 143/92 (109) 94 Room Air 05/07/17 04:15 37.1 61 18 132/78 (96) 96 Room Air 05/07/17 04:00 Room Air 05/06/17 23:59 Room Air 05/06/17 23:20 37.4 77 18 155/94 (114) 93 Room Air 05/06/17 20:44 37.5 70 163/98 (119) 05/06/17 20:00 Room Air 05/06/17 19:50 37.5 70 163/98 (119) 05/06/17 19:05 37.5 70 20 163/98 (119) 95 Room Air 05/06/17 16:15 37.2 98 20 166/99 95 Room Air 05/06/17 15:54 79 145/108 95 05/06/17 14:35 75 20 132/101 98 Room Air 05/06/17 13:16 55 20 149/91 95 Room Air 05/06/17 11:40 59 20 142/99 95 Room Air Physical Exam General Appearance: + mild distress Eyes: normal inspection, sclerae normal Respiratory/Chest: lungs clear, normal breath sounds Cardiovascular: regular rate, rhythm, no murmur Abdomen: normal bowel sounds, soft, + tenderness (mod LLQ and suprapubic region ; mild TTP over RLQ as well ), + pertinent finding (no rebound tenderness) Extremities: non-tender, no pedal edema Laboratory Results 05/07/17 07:26 05/07/17 07:26 Test 05/06/17 13:00 05/07/17 07:26 Urine Color YELLOW Urine Appearance CLEAR (CLEAR) Urine pH 6.0 (4.5-7.5) Urine Specific Wilsey 1.020 (1.000-1.030) Urine Protein 3+ (NEG) Urine Glucose (UA) 2+ (NEG) Urine Ketones NEG (NEG) Urine Occult Blood 2+ (NEG) Urine Nitrite NEG (NEG) Urine Bilirubin NEG (NEG) Urine Urobilinogen NEG (NEG) Urine Leukocyte Esterase NEG (NEG) Urine WBC (Auto) 1-5 /hpf (0-5) Urine RBC (Auto) 0-4 /hpf (0-4) Urine Hyaline Casts (Auto) 1-5 /lpf (0-5) Urine Epithelial Cells (Auto) 10-20 /lpf (0-5) Urine Bacteria (Auto) NEG (NEG) Red Blood Count 3.92 M/uL (4.7-6.1) Mean Corpuscular Volume 92.3 fL (80-100) Mean Corpuscular Hemoglobin 30.4 pg (25-34) Mean Corpuscular Hemoglobin Concent 32.9 g/dl (32-36) RDW Standard Deviation 51.4 fL (36.4-46.3) RDW Coefficient of Variation 15.1 % (11.5-14.5) Mean Platelet Volume 10.6 fL (7.4-10.4) Anion Gap 10.0 mmol/L (3-11) Est Creatinine Clear Calc Drug Dose 15.8 ml/min Estimated GFR () 9.4 Estimated GFR (Non- 8.1 BUN/Creatinine Ratio 4.8 (10-20) Calcium Level 8.6 mg/dl (8.5-10.1) Magnesium Level 2.1 mg/dl (1.8-2.4) Vancomycin Level Trough 21.2 mcg/ml (SEE COMMENT) Assessment and Plan 51yoM PMHx of hypertension, diabetes, hypothyroidism, 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 Peritonitis likely 2/2 diverticulitis. Peritoneal catheter site clean with mild local erythema but no TTP. Abdominal pain: Diverticulitis/Peritonitis: persistent - CT abdomen and pelvis revealed mild acute colitis of the distal descending and proximal sigmoid colon with no evidence of abscess. - Peritoneal fluid WBC 6828, cultures currently pending - Blood cultures pending - Continue IV Ciprofloxacin 400mg Q24H and Flagyl 500mg Q8H for diverticulitis - Morphine 2mg Q4H PRN for pain Chronic kidney disease stage V with PD - BUN/Cr improved from 41/8.11 to 34/7.02 - Consulted Nephrology for ongoing PD - Antibiotic dwell for 6h with Deflex 1.5% add 2g Vancomycin and gentamicin 0.6mg/kg (continue Gentamicin only; vanc trough 21 repeat trough tomorrow and decide next dose) - Then cycler for 5 exchange with 1500ml - Hold phos binder for now - dose meds for GFR <10 - Boost with regular diet Hypokalemia - K 3.4; Mag 2.1 - Repleted with 40meq KCL PO H/o DM - diet controlled CAD - aspirin 81mg HS BPH - Continue Flomax 04mg HS Insomnia - Ambien 10mg HS Full code DVT proph: Heparin 5000 Q8H SQ Disposition: med/surg -> home Resident Physician Supervision Note: I interviewed and examined the patient. Discussed with Dr. Osborn and agree with findings and plan as documented in the note. Any exceptions or clarifications are listed here: None Documented By: Genaro Hernandez nausea. pain about the same vitals noted nad breathing unlabored no pallor or icterus, abd soft less distended, still ongoing tender lower abdomen less so upper abdomen although still somewhat tender and (+) tender to percussion abdominal pain - appearing to be c/w BOTH peritonitis related to PD cath and acute diverticulitis -abx, supportive care, improving safe for med surg Resident Involvement: Resident Care Provided Care Provided: Adult Hospital Medicine
--- NOTE | 2017-05-07 11:50 | Nephrology Progress Note ---
Nephrology Progress Note Date of Service May 07, 2017. Chief Complaint F/U for ESRD on PD admitted with peritonitis. Subjective Sesar was seen and examined in his room this morning. Continues to have some lower abdominal pain without significant change compared to yesterday. Denied any fever, chills, nausea or vomiting. Did not have any bowel movement since admission. Was completing cycler. Review of Systems A complete review of systems was performed. Pertinent positives are noted above. All other systems are negative. Vital Signs Last 8 Hrs Date Time Temp Pulse Resp B/P (MAP) Pulse Ox O2 Delivery O2 Flow Rate FiO2 05/07/17 11:18 36.9 77 20 142/99 (113) 95 Room Air 05/07/17 08:00 Room Air 05/07/17 07:51 37.1 65 20 143/92 (109) 94 Room Air 05/07/17 04:15 37.1 61 18 132/78 (96) 96 Room Air 05/07/17 04:00 Room Air Last Recorded Weight Weight (Kilograms): 113.700 Physical Exam GENERAL: Middle-aged male, AAA x 3, pleasant, healthy-appearing, not in any distress. NECK: Supple, no JVD. RESPIRATORY: Normal breathing efforts, no accessory muscle use, clear to auscultation bilaterally, no wheezes or rales. CARDIOVASCULAR: S1, S2 normal, rate rhythm regular. ABDOMEN: Mild tenderness in lower abdomen, no guarding or rigidity, positive bowel sound. EXTREMITY: No lower extremity edema NEURO: speech fluent. PSYCHIATRY: Normal mood and judgment Family History Cancer Diabetes mellitus Heart disease Hypertension Kidney disease Kidney stones Social History Smoking Status: Never smoker Drug Use: none Marital Status: Occupation: employed Laboratory Results Past 24 Hours 05/07/17 07:26 05/07/17 07:26 Test 05/06/17 13:00 05/07/17 07:26 Urine Color YELLOW Urine Appearance CLEAR (CLEAR) Urine pH 6.0 (4.5-7.5) Urine Specific [place] 1.020 (1.000-1.030) Urine Protein 3+ (NEG) Urine Glucose (UA) 2+ (NEG) Urine Ketones NEG (NEG) Urine Occult Blood 2+ (NEG) Urine Nitrite NEG (NEG) Urine Bilirubin NEG (NEG) Urine Urobilinogen NEG (NEG) Urine Leukocyte Esterase NEG (NEG) Urine WBC (Auto) 1-5 /hpf (0-5) Urine RBC (Auto) 0-4 /hpf (0-4) Urine Hyaline Casts (Auto) 1-5 /lpf (0-5) Urine Epithelial Cells (Auto) 10-20 /lpf (0-5) Urine Bacteria (Auto) NEG (NEG) Red Blood Count 3.92 M/uL (4.7-6.1) Mean Corpuscular Volume 92.3 fL (80-100) Mean Corpuscular Hemoglobin 30.4 pg (25-34) Mean Corpuscular Hemoglobin Concent 32.9 g/dl (32-36) RDW Standard Deviation 51.4 fL (36.4-46.3) RDW Coefficient of Variation 15.1 % (11.5-14.5) Mean Platelet Volume 10.6 fL (7.4-10.4) Anion Gap 10.0 mmol/L (3-11) Est Creatinine Clear Calc Drug Dose 15.8 ml/min Estimated GFR () 9.4 Estimated GFR (Non- 8.1 BUN/Creatinine Ratio 4.8 (10-20) Calcium Level 8.6 mg/dl (8.5-10.1) Magnesium Level 2.1 mg/dl (1.8-2.4) Vancomycin Level Trough 21.2 mcg/ml (SEE COMMENT) Allergies Coded Allergies: Doxycycline (Verified Allergy, Severe, RASH, 05/06/17) phlebitis and pain with IV administration Penicillins (Verified Allergy, Mild, RASH, HIVES, ITCHING, 05/06/17) Medications Current Inpatient Medications Medications (Trade) Dose Ordered Sig/Leland Route Start Time Stop Time Status Last Admin Dose Admin Acetaminophen (Tylenol Tab) 650 mg Q4H PRN PO 05/06/17 14:30 06/05/17 14:29 Ondansetron HCl (Zofran Inj) 4 mg Q6H PRN IV 05/06/17 14:30 06/05/17 14:29 05/07/17 07:54 4 MG Polyethylene (Miralax Powder Packet) 17 gm DAILY PRN PO 05/06/17 14:30 06/05/17 14:29 Aspirin (Ecotrin Tab) 81 mg HS PO 05/06/17 21:00 06/05/17 20:59 05/06/17 21:10 81 MG Tamsulosin HCl (Flomax Cap) 0.4 mg HS PO 05/06/17 21:00 06/05/17 20:59 05/06/17 21:10 0.4 MG Zolpidem Tartrate (Ambien Tab) 10 mg HS PO 05/06/17 21:00 06/05/17 20:59 Ciprofloxacin/ Dextrose 400 mg/ Prmx 200 ml @ 100 mls/hr Q24H IV 05/06/17 20:00 05/16/17 19:59 05/06/17 21:10 100 MLS/HR Metronidazole 500 mg/Prmx 100 ml @ 100 mls/hr Q8H IV 05/06/17 22:00 05/16/17 13:59 05/07/17 06:30 100 MLS/HR Morphine Sulfate (MoRPHine SULFATE INJ) 2 mg Q4H PRN IV 05/06/17 17:00 05/20/17 16:59 05/07/17 02:58 2 MG Ciprofloxacin (Consult) 1 ea UD PRN N/A 05/06/17 18:45 06/05/17 18:44 Heparin Sodium (Porcine) (Heparin Sq 5000 Unit/0.5ml) 5,000 unit Q8 SQ 05/06/17 22:00 06/05/17 21:59 05/07/17 06:30 5,000 UNIT Impression (1) ESRD on peritoneal dialysis (2) Anemia (3) Secondary hyperparathyroidism of renal origin (4) Diabetes mellitus (5) Peritonitis (6) Benign hypertension Sesar is a 51 y o M with ESRD on PD, admitted with peritonitis and possible diverticulitis. PD fluid study showed WBC>6000, pt noticed cloudy effluent. BP slightly elevated but electrolyte . volume status acceptable. No leukocytosis. had A/P CT suggestive of diverticulitis, pt was kept on NPO, started on IV fluid and Flagyl and cipro empirically. Recommendations --continued daily Gentamycin IP dwell with 0.6 mg/kg , vanc trough 21. Will check trough level again tomorrow and decide about next does -- continue on Cycler for 5 exchanges with 1500 ml --if patient remain NPO suggest starting on IV fluid at 50 mL/hour --start on Boost once start on PO --hold Phos binder for now --No need for BECKIE --dose meds for GFR <10 --check Vanco trough level in am Will follow.
[2017-05-07] MEDS ORDERED: DIALYSIS IP SCH (13:00)
[2017-05-07] MEDS ORDERED: PERITONEAL 1.5% IP SCH (13:00)
[2017-05-07] MEDS ORDERED: GENTAMICIN IP SCH (13:00)
[2017-05-07] MEDS: CIPROFLOXACIN / D5W 400 MG in PREMIXED IN D5W 200 ML IV SCH (20:34)
[2017-05-07] MEDS: ZOLPIDEM TARTRATE 10 MG TAB PO SCH (22:00)
[2017-05-07] MEDS: ASPIRIN 81 MG ECTAB PO SCH (22:15)
[2017-05-07] MEDS: TAMSULOSIN HCL 0.4 MG CAP PO SCH (22:16)
[2017-05-08] MEDS: HEPARIN SOD 5000 UNIT/0.5 ML CARP SQ SCH ×3 (05:56→20:31)
[2017-05-08 07:37] VITALS: BP 129/92; PULSE 59; TEMP 36.7; O2SAT 94
[2017-05-08 07:40] VITALS: BP 129/92; PULSE 59; TEMP 36.7
[2017-05-08] MEDS: ONDANSETRON INJ 2 MG/ML 2 ML VIAL IV PRN (08:22)
[2017-05-08 08:35] LABS: HEMATOCRIT 35.1 % (42-52); HEMOGLOBIN 11.5 g/dL (14.0-18.0); MEAN CELL VOLUME 92.6 fL (80-100); MEAN CORPUSCULAR HEMOGLOBIN 30.3 pg (25-34); MEAN CORPUSCULAR HGB CONC 32.8 g/dl (32-36); MEAN PLATELET VOLUME 11.1 fL (7.4-10.4); PLATELET COUNT 197 K/uL (130-400); RED CELL DISTRIBUTION WIDTH SD 51.3 fL (36.4-46.3); WHITE BLOOD COUNT 9.28 K/uL (4.8-10.8)
[2017-05-08] MEDS: METRONIDAZOLE / NSS 500 MG in PREMIXED NSS 100 ML IV SCH ×2 (09:02→22:10)
[2017-05-08 09:24] LABS: CALCIUM 8.7 mg/dl (8.5-10.1); CREATININE 7.01 mg/dl (0.60-1.40); POTASSIUM 3.3 mmol/L (3.5-5.1)
[2017-05-08] MEDS ORDERED: POTASSIUM CHLORIDE 10 MEQ / 100ML WTR IV STA (09:37)
[2017-05-08] MEDS ORDERED: POTASSIUM CHLR 10MEQ / WTR IV SCH (10:00)
[2017-05-08] MEDS: MoRPHine SULFATE 2 MG/ML CARP IV PRN (10:09)
--- NOTE | 2017-05-08 10:24 | Nephrology Progress Note ---
Nephrology Progress Note Date of Service May 08, 2017. Chief Complaint F/U for ESRD on PD admitted with peritonitis. Patric Gomes was seen and examined in his room this morning. Abdominal pain started to improve, peritoneal dialysis if fluent still cloudy but clearer than before. Blood pressure stable. Started on regular diet but appetite has been poor and this morning had an episode of vomiting. Volume status and electrolyte acceptable. Review of Systems A complete review of systems was performed. Pertinent positives are noted above. All other systems are negative. Vital Signs Last 8 Hrs Date Time Temp Pulse Resp B/P (MAP) Pulse Ox O2 Delivery O2 Flow Rate FiO2 05/08/17 07:45 Room Air 05/08/17 07:37 36.7 59 18 129/92 (104) 94 Last Recorded Weight Weight (Kilograms): 109.100 Physical Exam GENERAL: Middle-aged male, AAA x 3, pleasant, healthy-appearing, not in any distress. NECK: Supple, no JVD. RESPIRATORY: Normal breathing efforts, no accessory muscle use, clear to auscultation bilaterally, no wheezes or rales. CARDIOVASCULAR: S1, S2 normal, rate rhythm regular. ABDOMEN: Mild tenderness in lower abdomen, no guarding or rigidity, positive bowel sound. EXTREMITY: No lower extremity edema NEURO: speech fluent. PSYCHIATRY: Normal mood and judgment Family History Cancer Diabetes mellitus Heart disease Hypertension Kidney disease Kidney stones Social History Smoking Status: Never smoker Drug Use: none Marital Status: Occupation: employed Laboratory Results Past 24 Hours Test 05/07/17 11:56 05/08/17 07:58 Bedside Glucose 90 mg/dl (70-99) Allergies Coded Allergies: Doxycycline (Verified Allergy, Severe, RASH, 05/06/17) phlebitis and pain with IV administration Penicillins (Verified Allergy, Mild, RASH, HIVES, ITCHING, 05/06/17) Medications Current Inpatient Medications Medications (Trade) Dose Ordered Sig/Leland Route Start Time Stop Time Status Last Admin Dose Admin Acetaminophen (Tylenol Tab) 650 mg Q4H PRN PO 05/06/17 14:30 06/05/17 14:29 Ondansetron HCl (Zofran Inj) 4 mg Q6H PRN IV 05/06/17 14:30 06/05/17 14:29 05/07/17 16:09 4 MG Polyethylene (Miralax Powder Packet) 17 gm DAILY PRN PO 05/06/17 14:30 06/05/17 14:29 Aspirin (Ecotrin Tab) 81 mg HS PO 05/06/17 21:00 06/05/17 20:59 05/07/17 22:15 81 MG Tamsulosin HCl (Flomax Cap) 0.4 mg HS PO 05/06/17 21:00 06/05/17 20:59 05/07/17 22:16 0.4 MG Zolpidem Tartrate (Ambien Tab) 10 mg HS PO 05/06/17 21:00 06/05/17 20:59 Ciprofloxacin/ Dextrose 400 mg/ Prmx 200 ml @ 100 mls/hr Q24H IV 05/06/17 20:00 05/16/17 19:59 05/07/17 20:34 100 MLS/HR Metronidazole 500 mg/Prmx 100 ml @ 100 mls/hr Q8H IV 05/06/17 22:00 05/16/17 13:59 05/07/17 22:43 100 MLS/HR Morphine Sulfate (MoRPHine SULFATE INJ) 2 mg Q4H PRN IV 05/06/17 17:00 05/20/17 16:59 05/07/17 20:44 2 MG Ciprofloxacin (Consult) 1 ea UD PRN N/A 05/06/17 18:45 06/05/17 18:44 Heparin Sodium (Porcine) (Heparin Sq 5000 Unit/0.5ml) 5,000 unit Q8 SQ 05/06/17 22:00 06/05/17 21:59 05/07/17 22:21 5,000 UNIT Impression (1) ESRD on peritoneal dialysis (2) Anemia (3) Secondary hyperparathyroidism of renal origin (4) Diabetes mellitus (5) Peritonitis (6) Benign hypertension Sesar is a 51 y o M with ESRD on PD, admitted with peritonitis and possible diverticulitis. PD fluid study showed WBC>6000, pt noticed cloudy effluent. BP slightly elevated but electrolyte . volume status acceptable. No leukocytosis. had A/P CT suggestive of diverticulitis, pt was kept on NPO, started on IV fluid and Flagyl and cipro empirically. Recommendations --continued daily Gentamycin IP dwell with 0.6 mg/kg , vanc trough 21. --Will check Vanco trough level again tomorrow and decide about next does --check PD fluid cell count tomorrow -- continue on Cycler for 5 exchanges with 1500 ml -- on Boost -- Phos binder --No need for BECKIE --dose meds for GFR <10 Will follow.
[2017-05-08] MEDS ORDERED: POTASSIUM CHLORIDE 20 MEQ/15 ML UDC PO STA (10:35)
[2017-05-08] MEDS ORDERED: SODIUM CHLORIDE 0.9% 1000ML 1,000 ML IV SCH (11:45)
[2017-05-08] MEDS ORDERED: PERITONEAL 1.5% IP SCH (12:00)
[2017-05-08] MEDS ORDERED: DIALYSIS IP SCH (12:00)
[2017-05-08] MEDS ORDERED: GENTAMICIN IP SCH (12:00)
[2017-05-08] MEDS: ONDANSETRON INJ 2 MG/ML 2 ML VIAL IV SCH ×3 (12:04→23:41)
[2017-05-08] MEDS: CALCIUM ACETATE 667MG GELCAP PO SCH ×2 (12:07→17:00)
[2017-05-08 13:15] VITALS: PULSE 60; TEMP 36.4
[2017-05-08 15:15] VITALS: BP 152/93; PULSE 59; TEMP 36.4; O2SAT 96
--- NOTE | 2017-05-08 19:48 | Family Medicine Progress Note ---
Progress Note Date of Service May 08, 2017. Subjective Pt evaluation today including: conversation w/ patient, physical exam, chart review, lab review Pain: reports persistent abdominal pain PO Intake: limited due to poor appetite and n/v Voiding: no voiding problems This AM pt reported vomiting and having nausea. Pain is persistent. Appetite is poor and has not ate much since yesterday. otherwise asymptomatic. Constitutional: No fever, No chills Respiratory: No shortness of breath Cardiovascular: No chest pain Abdomen: + pain, + nausea, + vomiting Male : No dysuria Medications Current Inpatient Medications Medications (Trade) Dose Ordered Sig/Leland Route Start Time Stop Time Status Last Admin Dose Admin Acetaminophen (Tylenol Tab) 650 mg Q4H PRN PO 05/06/17 14:30 06/05/17 14:29 Ondansetron HCl (Zofran Inj) 4 mg Q6H PRN IV 05/06/17 14:30 06/05/17 14:29 Future hold 05/08/17 08:22 4 MG Polyethylene (Miralax Powder Packet) 17 gm DAILY PRN PO 05/06/17 14:30 06/05/17 14:29 Aspirin (Ecotrin Tab) 81 mg HS PO 05/06/17 21:00 06/05/17 20:59 05/07/17 22:15 81 MG Tamsulosin HCl (Flomax Cap) 0.4 mg HS PO 05/06/17 21:00 06/05/17 20:59 05/07/17 22:16 0.4 MG Zolpidem Tartrate (Ambien Tab) 10 mg HS PO 05/06/17 21:00 06/05/17 20:59 Ciprofloxacin/ Dextrose 400 mg/ Prmx 200 ml @ 100 mls/hr Q24H IV 05/06/17 20:00 05/16/17 19:59 05/07/17 20:34 100 MLS/HR Metronidazole 500 mg/Prmx 100 ml @ 100 mls/hr Q8H IV 05/06/17 22:00 05/16/17 13:59 05/08/17 09:02 100 MLS/HR Morphine Sulfate (MoRPHine SULFATE INJ) 2 mg Q4H PRN IV 05/06/17 17:00 05/20/17 16:59 05/08/17 10:09 2 MG Ciprofloxacin (Consult) 1 ea UD PRN N/A 05/06/17 18:45 06/05/17 18:44 Heparin Sodium (Porcine) (Heparin Sq 5000 Unit/0.5ml) 5,000 unit Q8 SQ 05/06/17 22:00 06/05/17 21:59 05/07/17 22:21 5,000 UNIT Calcium Acetate (Phoslo Cap) 667 mg TIDM PO 05/08/17 12:00 06/07/17 11:59 05/08/17 12:07 667 MG Gentamicin Sulfate 65 mg/ [facility] 2,001.625 ml @ 0 mls/ hr DAILY@1000 IP 05/08/17 12:00 05/21/17 10:01 05/08/17 13:16 2,000 MLS/HR Sodium Chloride 1,000 ml @ 50 mls/hr Q20H IV 05/08/17 11:45 06/07/17 11:44 05/08/17 11:59 50 MLS/HR Ondansetron HCl (Zofran Inj) 4 mg Q6H IV 05/08/17 11:45 05/09/17 11:44 05/08/17 12:04 4 MG Enteral Nutritional Formula (Boost Glucose Control) 1 can BIDM PO 05/08/17 17:00 06/07/17 16:59 Objective Vital Signs Date Time Temp Pulse Resp B/P (MAP) Pulse Ox O2 Delivery O2 Flow Rate FiO2 05/08/17 15:15 36.4 59 20 152/93 (112) 96 Room Air 05/08/17 12:34 Room Air 05/08/17 07:45 Room Air 05/08/17 07:40 36.7 59 18 129/92 (104) 05/08/17 07:37 36.7 59 18 129/92 (104) 94 05/08/17 00:15 Room Air 05/07/17 23:27 36.8 77 18 135/87 (103) 93 Room Air 05/07/17 22:38 36.8 63 158/92 (114) 05/07/17 22:33 36.8 63 18 150/92 (111) Physical Exam General Appearance: no apparent distress Eyes: normal inspection, sclerae normal Respiratory/Chest: lungs clear, normal breath sounds Cardiovascular: regular rate, rhythm, no murmur Abdomen: normal bowel sounds, soft, + tenderness (LLQ, RLQ and suprabupic), + pertinent finding (PD cath site non-erythematous and nonTTP) Extremities: non-tender, no pedal edema Neurologic/Psychiatric: alert, oriented x 3 Skin: warm/dry Laboratory Results 05/08/17 07:58 05/08/17 07:58 Test 05/08/17 07:58 Red Blood Count 3.79 M/uL (4.7-6.1) Mean Corpuscular Volume 92.6 fL (80-100) Mean Corpuscular Hemoglobin 30.3 pg (25-34) Mean Corpuscular Hemoglobin Concent 32.8 g/dl (32-36) RDW Standard Deviation 51.3 fL (36.4-46.3) RDW Coefficient of Variation 15.0 % (11.5-14.5) Mean Platelet Volume 11.1 fL (7.4-10.4) Anion Gap 10.0 mmol/L (3-11) Est Creatinine Clear Calc Drug Dose 15.5 ml/min Estimated GFR () 9.4 Estimated GFR (Non- 8.1 BUN/Creatinine Ratio 4.3 (10-20) Calcium Level 8.7 mg/dl (8.5-10.1) Magnesium Level 2.2 mg/dl (1.8-2.4) Vancomycin Level Trough 13.2 mcg/ml (SEE COMMENT) Assessment and Plan 51yoM PMHx of hypertension, diabetes, hypothyroidism, 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 Peritonitis likely 2/2 diverticulitis. Peritoneal catheter site clean with mild local erythema but no TTP. Abdominal pain: Diverticulitis/Peritonitis: persistent pain with nausea/ vomiting and decreased appetite - CT abdomen and pelvis revealed mild acute colitis of the distal descending and proximal sigmoid colon with no evidence of abscess. - Peritoneal fluid WBC 6828, cultures NGTD - Blood cultures NGTD - Continue IV Ciprofloxacin 400mg Q24H and Flagyl 500mg Q8H for diverticulitis - Morphine 2mg Q4H PRN for pain - Zofran Q6H x 24 hrs then PRN Chronic kidney disease stage V with PD - BUN/Cr improved from 41/8.11 to 30/7.01 - Consulted Nephrology for ongoing PD - Antibiotic dwell for 6h with Deflex 1.5% add 2g Vancomycin and gentamicin 0.6mg/kg (continue Gentamicin only; vanc trough 21 repeat trough today and decide next dose) - Then cycler for 5 exchange with 1500ml - Continue phos binder - dose meds for GFR <10 - Boost with regular diet o/w IVF 50mls/hr (started on IVF 50mls/hr given decreased appetite and vomiting to prevent dehydration) Hypokalemia - K 3.3; Mag 2.2 - Repleted with 40meq KCL PO H/o DM - diet controlled CAD - aspirin 81mg HS BPH - Continue Flomax 04mg HS Insomnia - Ambien 10mg HS Full code DVT proph: Heparin 5000 Q8H SQ Disposition: med/surg -> home Resident Physician Supervision Note: I interviewed and examined the patient. Discussed with Dr. Osborn and agree with findings and plan as documented in the note. Any exceptions or clarifications are listed here: None Documented By: Genaro Hernandez pain improvign still nauseated thinks overall getting better but slowly nad breathing unlabored vitals stable abdomen soft less tender but ongoing peritonitis + diverticulitis + nausea -improving continue current antibiotics, schedule zofran for nausea, encourage PO intake Resident Involvement: Resident Care Provided Care Provided: Adult Hospital Medicine
[2017-05-08] MEDS: BOOST GLUCOSE CONTROL PO SCH (20:29)
[2017-05-08] MEDS: CIPROFLOXACIN / D5W 400 MG in PREMIXED IN D5W 200 ML IV SCH (20:29)
[2017-05-08 20:31] VITALS: BP 157/105; PULSE 62; TEMP 37
[2017-05-08] MEDS: TAMSULOSIN HCL 0.4 MG CAP PO SCH (20:31)
[2017-05-08] MEDS: ZOLPIDEM TARTRATE 10 MG TAB PO SCH (20:31)
[2017-05-08] MEDS: ASPIRIN 81 MG ECTAB PO SCH (20:31)
[2017-05-09 00:13] VITALS: BP 147/86; PULSE 66; TEMP 36.9; O2SAT 96
[2017-05-09] MEDS ORDERED: PROMETHAZINE HCL INJ 25 MG in SODIUM CHLORIDE 0.9% 50ML 50 ML IV PRN (03:45)
[2017-05-09] MEDS: METRONIDAZOLE / NSS 500 MG in PREMIXED NSS 100 ML IV SCH ×2 (05:41→14:47)
[2017-05-09] MEDS: HEPARIN SOD 5000 UNIT/0.5 ML CARP SQ SCH ×3 (06:00→19:54)
[2017-05-09 06:43] LABS: HEMATOCRIT 37.8 % (42-52); HEMOGLOBIN 12.3 g/dL (14.0-18.0); MEAN CELL VOLUME 92.4 fL (80-100); MEAN CORPUSCULAR HEMOGLOBIN 30.1 pg (25-34); MEAN CORPUSCULAR HGB CONC 32.5 g/dl (32-36); MEAN PLATELET VOLUME 10.8 fL (7.4-10.4); PLATELET COUNT 211 K/uL (130-400); RED CELL DISTRIBUTION WIDTH CV 14.8 % (11.5-14.5); RED CELL DISTRIBUTION WIDTH SD 49.9 fL (36.4-46.3); WHITE BLOOD COUNT 8.82 K/uL (4.8-10.8)
[2017-05-09 07:27] LABS: CALCIUM 8.8 mg/dl (8.5-10.1); CREATININE 7.11 mg/dl (0.60-1.40); POTASSIUM 3.3 mmol/L (3.5-5.1)
[2017-05-09 07:36] VITALS: BP 129/74; PULSE 60; TEMP 36.4; O2SAT 93
[2017-05-09] MEDS: CALCIUM ACETATE 667MG GELCAP PO SCH ×3 (08:48→16:58)
[2017-05-09] MEDS: BOOST GLUCOSE CONTROL PO SCH ×2 (08:49→16:59)
[2017-05-09] MEDS: ONDANSETRON INJ 2 MG/ML 2 ML VIAL IV SCH (08:53)
[2017-05-09] MEDS ORDERED: VANCOMYCIN IP ONE (09:00)
[2017-05-09] MEDS ORDERED: DIALYSIS IP ONE (09:00)
[2017-05-09] MEDS ORDERED: PERITONEAL 1.5% IP ONE (09:00)
[2017-05-09] MEDS ORDERED: NURSING VERBAL MED ORDER ONE ×2 (09:15→09:45)
[2017-05-09] MEDS ORDERED: PERITONEAL 1.5% IP SCH (09:30)
[2017-05-09] MEDS ORDERED: DIALYSIS IP SCH (09:30)
[2017-05-09] MEDS ORDERED: VANCOMYCIN IP SCH (09:30)
[2017-05-09] MEDS ORDERED: POTASSIUM CHLORIDE 20 MEQ/15 ML UDC PO SCH (09:30)
[2017-05-09] MEDS ORDERED: GENTAMICIN IP SCH (09:30)
[2017-05-09] MEDS: POTASSIUM CHLORIDE 20 MEQ TABCR PO SCH ×2 (09:38→19:54)
[2017-05-09] MEDS: FAMOTIDINE IV INJ 20 MG in SYRINGE 3 ML IV SCH ×2 (10:37→21:36)
--- NOTE | 2017-05-09 12:38 | Nephrology Progress Note ---
Nephrology Progress Note Date of Service May 09, 2017. Chief Complaint F/U for ESRD on PD admitted with peritonitis. Subjective Sesar was seen and examined in his room this morning. Abdominal pain improved but not totally resolved. peritoneal dialysis effluent now clear. Blood pressure stable. Started on regular diet but appetite has been poor and continues to have nausea and vomiting. Reports noticing a protruding mass in mid abdomen with coughing. Volume status and electrolyte acceptable. Review of Systems A complete review of systems was performed. Pertinent positives are noted above. All other systems are negative. Vital Signs Last 8 Hrs Date Time Temp Pulse Resp B/P (MAP) Pulse Ox O2 Delivery O2 Flow Rate FiO2 05/09/17 07:36 36.4 60 18 129/74 (92) 93 05/09/17 01:23 Room Air Last Recorded Weight Weight (Kilograms): 110.400 Physical Exam GENERAL: Middle-aged male, AAA x 3, healthy-appearing, not in any distress. NECK: Supple, no JVD. RESPIRATORY: Normal breathing efforts, no accessory muscle use, clear to auscultation bilaterally, no wheezes or rales. CARDIOVASCULAR: S1, S2 normal, rate rhythm regular. ABDOMEN: Mild tenderness in lower abdomen, no guarding or rigidity, positive bowel sound. Possible ventral hernia. PD catheter site with mild erythema, no tenderness, drainage. EXTREMITY: No lower extremity edema NEURO: speech fluent. PSYCHIATRY: Normal mood and judgment Family History Cancer Diabetes mellitus Heart disease Hypertension Kidney disease Kidney stones Social History Smoking Status: Never smoker Drug Use: none Marital Status: Occupation: employed Laboratory Results Past 24 Hours 05/09/17 06:00 05/09/17 06:00 Test 05/09/17 06:00 05/09/17 08:30 Red Blood Count 4.09 M/uL (4.7-6.1) Mean Corpuscular Volume 92.4 fL (80-100) Mean Corpuscular Hemoglobin 30.1 pg (25-34) Mean Corpuscular Hemoglobin Concent 32.5 g/dl (32-36) RDW Standard Deviation 49.9 fL (36.4-46.3) RDW Coefficient of Variation 14.8 % (11.5-14.5) Mean Platelet Volume 10.8 fL (7.4-10.4) Anion Gap 6.0 mmol/L (3-11) Est Creatinine Clear Calc Drug Dose 15.4 ml/min Estimated GFR () 9.3 Estimated GFR (Non- 8.0 BUN/Creatinine Ratio 4.4 (10-20) Calcium Level 8.8 mg/dl (8.5-10.1) Magnesium Level 2.1 mg/dl (1.8-2.4) Vancomycin Level Trough 8.8 mcg/ml (SEE COMMENT) Allergies Coded Allergies: Doxycycline (Verified Allergy, Severe, RASH, 05/06/17) phlebitis and pain with IV administration Penicillins (Verified Allergy, Mild, RASH, HIVES, ITCHING, 05/06/17) Medications Current Inpatient Medications Medications (Trade) Dose Ordered Sig/Leland Route Start Time Stop Time Status Last Admin Dose Admin Acetaminophen (Tylenol Tab) 650 mg Q4H PRN PO 05/06/17 14:30 06/05/17 14:29 Ondansetron HCl (Zofran Inj) 4 mg Q6H PRN IV 05/06/17 14:30 06/05/17 14:29 Future hold 05/08/17 08:22 4 MG Polyethylene (Miralax Powder Packet) 17 gm DAILY PRN PO 05/06/17 14:30 06/05/17 14:29 Aspirin (Ecotrin Tab) 81 mg HS PO 05/06/17 21:00 06/05/17 20:59 05/08/17 20:31 81 MG Tamsulosin HCl (Flomax Cap) 0.4 mg HS PO 05/06/17 21:00 06/05/17 20:59 05/08/17 20:31 0.4 MG Zolpidem Tartrate (Ambien Tab) 10 mg HS PO 05/06/17 21:00 06/05/17 20:59 Ciprofloxacin/ Dextrose 400 mg/ Prmx 200 ml @ 100 mls/hr Q24H IV 05/06/17 20:00 05/16/17 19:59 05/08/17 20:29 100 MLS/HR Metronidazole 500 mg/Prmx 100 ml @ 100 mls/hr Q8H IV 05/06/17 22:00 05/16/17 13:59 05/09/17 05:41 100 MLS/HR Morphine Sulfate (MoRPHine SULFATE INJ) 2 mg Q4H PRN IV 05/06/17 17:00 05/20/17 16:59 05/08/17 10:09 2 MG Ciprofloxacin (Consult) 1 ea UD PRN N/A 05/06/17 18:45 06/05/17 18:44 Heparin Sodium (Porcine) (Heparin Sq 5000 Unit/0.5ml) 5,000 unit Q8 SQ 05/06/17 22:00 06/05/17 21:59 05/07/17 22:21 5,000 UNIT Calcium Acetate (Phoslo Cap) 667 mg TIDM PO 05/08/17 12:00 06/07/17 11:59 05/08/17 12:07 667 MG Gentamicin Sulfate 65 mg/ [facility] 2,001.625 ml @ 0 mls/ hr DAILY@1000 IP 05/08/17 12:00 05/21/17 10:01 05/08/17 13:16 2,000 MLS/HR Sodium Chloride 1,000 ml @ 50 mls/hr Q20H IV 05/08/17 11:45 06/07/17 11:44 05/08/17 11:59 50 MLS/HR Ondansetron HCl (Zofran Inj) 4 mg Q6H IV 05/08/17 11:45 05/09/17 11:44 05/08/17 23:41 4 MG Enteral Nutritional Formula (Boost Glucose Control) 1 can BIDM PO 05/08/17 17:00 06/07/17 16:59 05/08/17 20:29 1 CAN Promethazine HCl 25 mg/Sodium Chloride 51 ml @ 204 mls/hr Q6H PRN IV 05/09/17 03:45 06/08/17 03:44 05/09/17 04:11 204 MLS/HR Potassium Chloride (Dorinda Ciel Elix) 40 meq BID PO 05/09/17 09:30 05/09/17 20:01 Impression (1) ESRD on peritoneal dialysis (2) Anemia (3) Secondary hyperparathyroidism of renal origin (4) Diabetes mellitus (5) Peritonitis (6) Benign hypertension Sesar is a 51 y o M with ESRD on PD, admitted with peritonitis and possible diverticulitis. PD fluid study showed WBC>6000, pt noticed cloudy effluent. BP slightly elevated but electrolyte . volume status acceptable. No leukocytosis. had A/P CT suggestive of diverticulitis, pt was kept on NPO, started on IV fluid and Flagyl and cipro empirically. Recommendations --continued daily Gentamicin IP dwell with 0.6 mg/kg , will add vanc 2 gm today as trough was 8 --check PD fluid cell count today -- continue on Cycler for 5 exchanges with 1500 ml, will use Delfelx 1.5% alternate with 2.5%. -- on Boost -- Phos binder --dose meds for GFR <10 --as pt continues to have lower abdominal pain, nausea/vomiting and possible ventral hernia, suggest consultation with surgery Will follow.
[2017-05-09 14:54] VITALS: BP 144/87; PULSE 55; TEMP 36.8; O2SAT 98
[2017-05-09] MEDS: ASPIRIN 81 MG ECTAB PO SCH (19:53)
[2017-05-09] MEDS: TAMSULOSIN HCL 0.4 MG CAP PO SCH (19:53)
[2017-05-09] MEDS: ZOLPIDEM TARTRATE 10 MG TAB PO SCH (19:53)
[2017-05-09] MEDS ORDERED: CIPROFLOXACIN 500 MG TAB PO SCH (20:00)
[2017-05-09] MEDS: ONDANSETRON INJ 2 MG/ML 2 ML VIAL IV PRN (20:04)
--- NOTE | 2017-05-09 20:38 | Family Medicine Progress Note ---
Progress Note Date of Service May 09, 2017. Subjective Pt evaluation today including: conversation w/ patient, physical exam, chart review, review of studies Pain: improved abdominal pain PO Intake: tolerating some - decreased appetite/intake Voiding: no voiding problems This AM reports some improvement in abdominal. Denies n/v. Had a small BM this AM with urination which was somewhat painful (had suprapubic pain). Tolerating crackers with kandy rossy but appetite still decreased. Also reported bulge in abdomen upon coughing Constitutional: No fever, No chills Respiratory: + cough, No shortness of breath Cardiovascular: No chest pain Abdomen: + pain, No nausea, No vomiting, No diarrhea, No constipation Male : No dysuria Medications Current Inpatient Medications Medications (Trade) Dose Ordered Sig/Leland Route Start Time Stop Time Status Last Admin Dose Admin Acetaminophen (Tylenol Tab) 650 mg Q4H PRN PO 05/06/17 14:30 06/05/17 14:29 Ondansetron HCl (Zofran Inj) 4 mg Q6H PRN IV 05/06/17 14:30 06/05/17 14:29 Future hold 05/09/17 20:04 4 MG Polyethylene (Miralax Powder Packet) 17 gm DAILY PRN PO 05/06/17 14:30 06/05/17 14:29 Aspirin (Ecotrin Tab) 81 mg HS PO 05/06/17 21:00 06/05/17 20:59 05/09/17 19:53 81 MG Tamsulosin HCl (Flomax Cap) 0.4 mg HS PO 05/06/17 21:00 06/05/17 20:59 05/09/17 19:53 0.4 MG Zolpidem Tartrate (Ambien Tab) 10 mg HS PO 05/06/17 21:00 06/05/17 20:59 Morphine Sulfate (MoRPHine SULFATE INJ) 2 mg Q4H PRN IV 05/06/17 17:00 05/20/17 16:59 05/08/17 10:09 2 MG Ciprofloxacin (Consult) 1 ea UD PRN N/A 05/06/17 18:45 06/05/17 18:44 Heparin Sodium (Porcine) (Heparin Sq 5000 Unit/0.5ml) 5,000 unit Q8 SQ 05/06/17 22:00 06/05/17 21:59 05/07/17 22:21 5,000 UNIT Calcium Acetate (Phoslo Cap) 667 mg TIDM PO 05/08/17 12:00 06/07/17 11:59 05/09/17 16:58 667 MG Gentamicin Sulfate 65 mg/ [facility] 2,001.625 ml @ 0 mls/ hr DAILY@1000 IP 05/08/17 12:00 05/22/17 10:01 Future hold 05/08/17 13:16 2,000 MLS/HR Enteral Nutritional Formula (Boost Glucose Control) 1 can BIDM PO 05/08/17 17:00 06/07/17 16:59 05/09/17 16:59 1 CAN Promethazine HCl 25 mg/Sodium Chloride 51 ml @ 204 mls/hr Q6H PRN IV 05/09/17 03:45 06/08/17 03:44 05/09/17 04:11 204 MLS/HR Famotidine 20 mg/ Syringe 5 ml @ 2.5 mls/min Q12H IV 05/09/17 10:00 06/08/17 09:59 05/09/17 10:37 2.5 MLS/MIN Ciprofloxacin (Cipro Tab) 500 mg Q24H PO 05/09/17 20:00 05/19/17 19:59 Metronidazole (Flagyl Tab) 500 mg TID PO 05/09/17 20:00 05/19/17 19:59 Objective Vital Signs Date Time Temp Pulse Resp B/P (MAP) Pulse Ox O2 Delivery O2 Flow Rate FiO2 05/09/17 16:00 Room Air 05/09/17 14:54 36.8 55 18 144/87 (106) 98 05/09/17 08:00 Room Air 05/09/17 07:36 36.4 60 18 129/74 (92) 93 05/09/17 01:23 Room Air 05/09/17 00:13 36.9 66 18 147/86 (106) 96 Room Air Physical Exam General Appearance: no apparent distress Eyes: normal inspection, sclerae normal Respiratory/Chest: lungs clear, normal breath sounds Cardiovascular: regular rate, rhythm, no murmur Abdomen: normal bowel sounds, soft, + tenderness (improved TTP of RLQ, suprapubic and LLQ regions), + pertinent finding (reducible hernia/bulge in ventral abdomen above umbilicus over previous surgical scar; reducible) Extremities: non-tender, no pedal edema Neurologic/Psychiatric: alert Skin: warm/dry Laboratory Results 05/09/17 06:00 05/09/17 06:00 Test 05/09/17 06:00 05/09/17 08:30 Red Blood Count 4.09 M/uL (4.7-6.1) Mean Corpuscular Volume 92.4 fL (80-100) Mean Corpuscular Hemoglobin 30.1 pg (25-34) Mean Corpuscular Hemoglobin Concent 32.5 g/dl (32-36) RDW Standard Deviation 49.9 fL (36.4-46.3) RDW Coefficient of Variation 14.8 % (11.5-14.5) Mean Platelet Volume 10.8 fL (7.4-10.4) Anion Gap 6.0 mmol/L (3-11) Est Creatinine Clear Calc Drug Dose 15.4 ml/min Estimated GFR () 9.3 Estimated GFR (Non- 8.0 BUN/Creatinine Ratio 4.4 (10-20) Calcium Level 8.8 mg/dl (8.5-10.1) Magnesium Level 2.1 mg/dl (1.8-2.4) Vancomycin Level Trough 8.8 mcg/ml (SEE COMMENT) Peritoneal Fluid Color COLORLESS Peritoneal Fluid Appearance CLEAR Peritoneal Fluid WBC 19 /uL (0-300) Peritoneal Fluid RBC < 3000 /uL Peritoneal Fld Mononuclear WBCs (%) 31.6 % Peritoneal Fld Polynuclear WBCs (%) 68.4 % Assessment and Plan 51yoM PMHx of hypertension, diabetes, hypothyroidism, 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 Peritonitis in the setting of diverticulitis. Peritoneal catheter site clean with mild local erythema but no TTP. Abdominal pain: Diverticulitis/Peritonitis: persistent pain with nausea/ vomiting and decreased appetite - CT abdomen and pelvis revealed mild acute colitis of the distal descending and proximal sigmoid colon with no evidence of abscess. - Peritoneal fluid WBC 6828 improved to 19 on repeat analysis, cultures NGTD - Blood cultures NGTD - Changed Ciprofloxacin 500mg BID and Flagyl 500mg TID PO from IV for diverticulitis - Morphine 2mg Q4H PRN for pain - Zofran Q6H PRN Chronic kidney disease stage V with PD - BUN/Cr improved from 41/8.11 to 31/7.11 - Consulted Nephrology for ongoing PD - Antibiotic dwell for 6h with Deflex 1.5% add 2g Vancomycin and gentamicin 0.6mg/kg (continue Gentamicin and Vanc; vanc trough 8 today) - Then cycler for 5 exchange with 1500ml - Continue phos binder - dose meds for GFR <10 - Boost with regular diet Hypokalemia - K 3.3; Mag 2.1 - Repleted with 40meq KCL PO x 2 H/o DM - diet controlled CAD - Continue aspirin 81mg HS BPH - Continue Flomax 04mg HS Insomnia - Continue Ambien 10mg HS Full code DVT proph: Heparin 5000 Q8H SQ Resident Physician Supervision Note: I interviewed and examined the patient. Discussed with Dr. Osborn and agree with findings and plan as documented in the note. Any exceptions or clarifications are listed here: None Documented By: Genaro Hernandez feeling better slowly still pain and nausea toddlas noted nad breathing unlabored no pallor or icterus peritonitis and diverticulitis - slowly improving, continue current abx - but transition to PO, treat nausea ongoing, encourage pO intake, home once doing better, can Resident Involvement: Resident Care Provided Care Provided: Adult Hospital Medicine
[2017-05-09] MEDS: METRONIDAZOLE 500 MG TAB PO SCH (21:36)
[2017-05-09 22:08] VITALS: BP 155/90; PULSE 58; TEMP 36.9
[2017-05-09 22:15] VITALS: BP 150/80; PULSE 59; TEMP 36.9
[2017-05-09] MEDS: MoRPHine SULFATE 2 MG/ML CARP IV PRN (22:41)
[2017-05-09 22:54] VITALS: BP 162/104; PULSE 64; TEMP 36.8; O2SAT 100
[2017-05-10] MEDS: HEPARIN SOD 5000 UNIT/0.5 ML CARP SQ SCH ×2 (05:38→13:27)
[2017-05-10 07:32] VITALS: BP 140/91; PULSE 63; TEMP 36.7; O2SAT 95
[2017-05-10] MEDS: METRONIDAZOLE 500 MG TAB PO SCH ×2 (08:02→13:27)
[2017-05-10] MEDS: CALCIUM ACETATE 667MG GELCAP PO SCH ×2 (08:02→11:41)
[2017-05-10] MEDS: BOOST GLUCOSE CONTROL PO SCH (08:02)
[2017-05-10 08:06] VITALS: BP 140/91; PULSE 63; TEMP 36.7
[2017-05-10 08:27] LABS: HEMATOCRIT 39.4 % (42-52); HEMOGLOBIN 12.9 g/dL (14.0-18.0); MEAN CELL VOLUME 92.5 fL (80-100); MEAN CORPUSCULAR HEMOGLOBIN 30.3 pg (25-34); MEAN CORPUSCULAR HGB CONC 32.7 g/dl (32-36); MEAN PLATELET VOLUME 11.3 fL (7.4-10.4); PLATELET COUNT 225 K/uL (130-400); RED CELL DISTRIBUTION WIDTH CV 14.8 % (11.5-14.5); RED CELL DISTRIBUTION WIDTH SD 50.3 fL (36.4-46.3); WHITE BLOOD COUNT 8.53 K/uL (4.8-10.8)
[2017-05-10] MEDS ORDERED: GENTAMICIN IP SCH (09:00)
[2017-05-10] MEDS ORDERED: FAMOTIDINE 20 MG TAB PO SCH (09:00)
[2017-05-10] MEDS ORDERED: PERITONEAL 1.5% IP SCH ×2 (09:00)
[2017-05-10] MEDS ORDERED: DIALYSIS IP SCH ×2 (09:00)
[2017-05-10 09:09] LABS: CALCIUM 9.4 mg/dl (8.5-10.1); CREATININE 7.55 mg/dl (0.60-1.40); POTASSIUM 3.9 mmol/L (3.5-5.1)
[2017-05-10] MEDS ORDERED: MTR500 PO (11:58)
[2017-05-10] MEDS ORDERED: CPR500 PO (11:58)
[2017-05-10] MEDS ORDERED: ONDA8TAB62 SL (11:58)
[2017-05-10] MEDS ORDERED: PHS667 PO (11:58)
[2017-05-10] MEDS ORDERED: ULT50X PO (11:58)
--- NOTE | 2017-05-10 12:04 | Discharge Instructions ---
Discharge Instructions Date of Service May 10, 2017. Admission Reason for Admission: Peritonitis Discharge Discharge Diagnosis / Problem: peritonitis, and seperately diverticulitis (see below) Discharge Goals Goal(s): Diagnostic testing, Therapeutic intervention Activity Recommendations Activity Limitations: resume your previous activity . Instructions / Follow-Up Instructions / Follow-Up peritonitis - infection of the peritoneal fluid -this is getting better -the antibiotics we have you on for the diverticulitis will actually help to get this better, and Dr Quijano is setting up ongoing antibiotics in your peritoneal dialysis fluid -if you were to get cloudiness of the fluid to return, worsening pain, or fevers , we'll want you to get seen right away diverticulitis -this is an infection of diverticuli (little outpouchings of the colon that most of us in the [place] accumulate as we age) -the cipro (500mg daily for 10 more days) and flagyl (500mg three times a day for the next 10 days, generic metronidazole) will clear this up -frequently the pain and feelings of constipation slowly resolve as the infection and inflammation get better -if you were to feel worsening of the lower abdominal pain or worsening of nausea, then obviously we'll want you to get seen right away, although these are unlikely to happen -we'll want you to get a colonoscopy done in the next few months (not emergent, just don't let it slip through the cracks) for completeness as far as pain - you can take tramadol 50mg up to four times a day as needed -- it can cause some grogginess or constipation for nausea, the zofran (ondansetron) can be taken up to four times a day as needed for nausea (this usually is pretty minimal on side effects; at repeated high doses it can cause heart rhythm issues but this is not likely to happen with you and almost never happens with intermittent dosing) for constipation, you can take miralax (polyethylene glycol) 17grams (1 capful) up to twice a day until/unless you have a bowel movement follow up with your primary care doc next week Current Hospital Diet Patient's current hospital diet: Regular Diet, Diabetes Type 2 Diet Discharge Diet Recommended Diet: Diabetes Type 2 Diet, Renal Diet Pending Studies Studies pending at discharge: no Medical Emergencies . Who to Call and When: Medical Emergencies: If at any time you feel your situation is an emergency, please call 911 immediately. . Non-Emergent Contact Non-Emergency issues call your: Primary Care Provider, Personal Finance Instructor . . "Provider Documentation" section prepared by Genaro Hernandez. . VTE Core Measure Inpt VTE Proph given/why not?: Unfractionated heparin SQ
[2017-05-10] MEDS ORDERED: NURSING VERBAL MED ORDER ONE (12:45)
[2017-05-10 12:53] VITALS: BP 140/91; PULSE 63; TEMP 36.7; O2SAT 95
--- NOTE | 2017-05-10 14:00 | Discharge Summary ---
Discharge Summary Date of Service May 10, 2017. Discharge Summary Admission Date: May 06, 2017 at 14:32 Discharge Date: May 10, 2017 Discharge Disposition: Home with services Principal Diagnosis: peritonitis; diverticulitis Problems/Secondary Diagnoses: CKD stage V with PD DM diet controlled BPH hypothyroidism HTN Procedures: PA CHEST RADIOGRAPH AND UPRIGHT AND SUPINE AP RADIOGRAPHS OF THE ABDOMEN CLINICAL HISTORY: Abdominal pain. COMPARISON STUDY: Chest radiograph December 01, [address] of the abdomen and pelvis May 06, 2017. FINDINGS: No pneumothorax or pleural effusion is noted. There is no evidence for pulmonary edema. Cardiomediastinal silhouette is stable. A calcified left upper lobe granuloma is unchanged. Pneumoperitoneum is noted. Bowel gas pattern is normal. Peritoneal dialysis catheter within the left lower quadrant is noted. IMPRESSION: 1. Pneumoperitoneum as shown on CT performed earlier today. Although nonspecific, this is likely related to the indwelling peritoneal dialysis catheter. 2. No evidence for a bowel obstruction. 3. No acute cardiopulmonary findings CT SCAN OF THE ABDOMEN AND PELVIS WITHOUT IV CONTRAST CLINICAL HISTORY: Lower abdominal pain peritoneal dialysis patient. COMPARISON STUDY: Abdominal CT dated 12/18/2016. TECHNIQUE: CT scan of the abdomen and pelvis is performed from the lung bases to the proximal femora. Images are reviewed in the axial, sagittal, and coronal planes. IV contrast was not administered for this examination as per the referring clinician. Note that the examination was performed in suboptimal fashion without oral and IV contrast. A dose lowering technique was utilized adhering to the principles of ALARA. CT DOSE: 1116.27 mGy.cm FINDINGS: Lung bases: The heart is normal in size and without pericardial effusion. The lung bases are clear noting dependent atelectasis. There is a tiny hiatal hernia. Liver: The unenhanced liver is enlarged, measuring 19 cm in length. The liver demonstrates diffusely diminished attenuation consistent with severe hepatic steatosis. Fatty sparing is seen adjacent to gallbladder fossa. There is no intrahepatic biliary ductal dilatation. Gallbladder: Unremarkable. Spleen: The spleen is mildly enlarged measuring 14.1 cm in length. There are small calcified splenic granulomas. Pancreas: Unremarkable. Adrenal glands: Unremarkable. Kidneys: The left kidney is not identified and presumed surgically absent. The right kidney demonstrates cortical atrophy and is without hydronephrosis. There are no renal calculi identified. A 10 mm exophytic cyst arises from the lower pole of the right kidney as seen on image #[id number].. Abdominal vasculature: The abdominal aorta is normal in course and caliber noting mild atherosclerotic calcification. Bowel: There are scattered colonic diverticula. Inflammatory stranding seen around a diverticulum in the distal descending/proximal sigmoid colon on image #[id number]. The appearance suggests mild acute diverticulitis. There is no evidence of abscess. No bowel obstruction is seen. The appendix is well-visualized and normal. Peritoneum: There are nonspecific foci of intraperitoneal free air scattered throughout the abdomen and below the diaphragm. There is a gas and fluid containing umbilical hernia. There is a peritoneal dialysis catheter from a left central pelvic approach coiled in the central left abdomen with trace surrounding fluid. Lymphadenopathy: None. Pelvic viscera: The bladder, prostate, and seminal vesicles are normal as imaged. Skeletal structures: No lytic or blastic lesions are seen. IMPRESSION: 1. Findings are consistent with mild acute diverticulitis of the distal descending/proximal sigmoid colon. There is no evidence of abscess. 2. A peritoneal dialysis catheter is present in the left ventral abdomen. Numerous small foci of intraperitoneal free air are nonspecific and likely related to the presence of an indwelling catheter. Clinical correlation will be essential. 3. Trace free fluid is likely related to peritoneal dialysis. 4. Hepatomegaly and severe hepatic steatosis. 5. The left kidney is surgically absent. 6. Mild splenomegaly. 7. Additional findings as above. Consultations: nephrology Dr. Melanie Quijano Medication Reconciliation New Medications: Ondansetron Odt (Zofran Odt) 8 Mg Soltab 8 MG SL Q6H PRN for Nausea, #30 TAB Tramadol HCl (Tramadol HCl) 50 Mg Tab 1 TAB PO QID PRN for Pain, #30 Calcium Acetate (Phoslo 667 Mg) 667 Mg Cap 667 MG PO TIDM, #90 CAP Ciprofloxacin (Ciprofloxacin HCl) 500 Mg Tab 500 MG PO Q24H, #10 TAB Metronidazole (Metronidazole) 500 Mg Tab 500 MG PO TID, #30 TAB Continued Medications: Aspirin (Aspirin 81) 81 Mg Tab 81 MG PO HS Ergocalciferol (Vitamin D 31497 Unit) 50,000 Unit Cap 1 CAP PO WK SUNDAYS Tamsulosin Hcl (Flomax) 0.4 Mg Cap 0.4 MG PO HS Zolpidem Tartrate (Ambien) 10 Mg Tab 10 MG PO HS Discharge Exam Review of Systems: Constitutional: No fever, No chills Respiratory: No shortness of breath Cardiovascular: No chest pain Abdomen: + pain, + nausea, No vomiting Genitourinary - Female: No dysuria Physical Exam: General Appearance: no apparent distress Eyes: normal inspection, sclerae normal Respiratory/Chest: lungs clear, normal breath sounds Cardiovascular: regular rate, rhythm, no murmur Abdomen / GI: normal bowel sounds, soft, + tenderness (RLQ, suprapubic, LLQ ) Extremities: normal inspection, no pedal edema Neurologic/Psychiatric: alert, oriented x 3 Skin: warm/dry Hospital Course 51yoM PMHx of hypertension, diabetes, hypothyroidism, 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 Peritonitis in the setting of diverticulitis. Peritoneal catheter site clean with mild local erythema but no TTP. Abdominal pain: Diverticulitis/Peritonitis: persistent pain with nausea/ vomiting and decreased appetite - improving - CT abdomen and pelvis revealed mild acute colitis of the distal descending and proximal sigmoid colon with no evidence of abscess. - Peritoneal fluid WBC 6828 improved to 19 on repeat analysis, cultures NGTD - Blood cultures NGTD - Dced with Ciprofloxacin 500mg Qday and Flagyl 500mg TID PO x 10 days - Received Morphine 2mg Q4H PRN for pain - Discharged with Tramadol 50mg Q6H PRN for pain - Received and discharged with Zofran 8mg Q6H PRN Chronic kidney disease stage V with PD - BUN/Cr improved from 41/8.11 to 35/7.55 - Consulted Nephrology for ongoing PD - Per Dr. Quijano - Antibiotic dwell for 6h with Deflex 1.5% add 2g Vancomycin and gentamicin 0.6mg/kg (continue Gentamicin and Vanc; vanc trough 8 today) - Then cycler for 5 exchange with 1500ml - Continue phos binder - discharged with Rx 667mg TID calcium acetate - dose meds for GFR <10 - Boost with regular diet Hypokalemia - improved - K 3.9; Mag 2.2 - Repleted with 40meq KCL PO x 2 on 05/09 H/o DM - diet controlled CAD - Continued aspirin 81mg HS BPH - Continued Flomax 04mg HS Insomnia - Continued Ambien 10mg HS Full code DVT proph: Heparin 5000 Q8H SQ Resident Physician Supervision Note: I interviewed and examined the patient. Discussed with Dr. Osborn and agree with findings and plan as documented in the note. Any exceptions or clarifications are listed here: None Documented By: Genaro Hernandez feeling better wants to go home abdomen soft minimally tender diverticulitis AND peritonitis - stable for home on PO and PD abx. otherwise as above Total Time Spent: Less than 30 minutes This includes examination of the patient, discharge planning, medication reconciliation, and communication with other providers. Discharge Instructions Please refer to the electronic Patient Visit Report (Discharge Instructions) for additional information. Additional Copies To Xander Barreto D.O.
--- NOTE | 2017-05-10 14:06 | Nephrology Progress Note ---
Nephrology Progress Note Date of Service May 10, 2017. Chief Complaint F/U for ESRD on PD admitted with peritonitis. Subjective Sesar was seen and examined in his room this morning. Abdominal pain improved. peritoneal dialysis effluent now clear, cell count normalized. Blood pressure stable. Started on regular diet but appetite has been poor, nausea and vomiting resolved. Volume status and electrolyte acceptabl Review of Systems A complete review of systems was performed. Pertinent positives are noted above. All other systems are negative. Vital Signs Last 8 Hrs Date Time Temp Pulse Resp B/P (MAP) Pulse Ox O2 Delivery O2 Flow Rate FiO2 05/10/17 07:32 36.7 63 18 140/91 (107) 95 Last Recorded Weight Weight (Kilograms): 109.800 Physical Exam GENERAL: Middle-aged male, AAA x 3, healthy-appearing, not in any distress. NECK: Supple, no JVD. RESPIRATORY: Normal breathing efforts, no accessory muscle use, clear to auscultation bilaterally, no wheezes or rales. CARDIOVASCULAR: S1, S2 normal, rate rhythm regular. ABDOMEN: Mild tenderness in lower abdomen, no guarding or rigidity, positive bowel sound. Possible ventral hernia. PD catheter site with mild erythema, no tenderness, drainage. EXTREMITY: No lower extremity edema NEURO: speech fluent. PSYCHIATRY: Normal mood and judgment Family History Cancer Diabetes mellitus Heart disease Hypertension Kidney disease Kidney stones Social History Smoking Status: Never smoker Drug Use: none Marital Status: Occupation: employed Laboratory Results Past 24 Hours Test 05/09/17 08:30 05/10/17 07:54 Peritoneal Fluid Color COLORLESS Peritoneal Fluid Appearance CLEAR Peritoneal Fluid WBC 19 /uL (0-300) Peritoneal Fluid RBC < 3000 /uL Peritoneal Fld Mononuclear WBCs (%) 31.6 % Peritoneal Fld Polynuclear WBCs (%) 68.4 % Allergies Coded Allergies: Doxycycline (Verified Allergy, Severe, RASH, 05/06/17) phlebitis and pain with IV administration Penicillins (Verified Allergy, Mild, RASH, HIVES, ITCHING, 05/06/17) Medications Current Inpatient Medications Medications (Trade) Dose Ordered Sig/Leland Route Start Time Stop Time Status Last Admin Dose Admin Acetaminophen (Tylenol Tab) 650 mg Q4H PRN PO 05/06/17 14:30 06/05/17 14:29 Ondansetron HCl (Zofran Inj) 4 mg Q6H PRN IV 05/06/17 14:30 06/05/17 14:29 Future hold 05/09/17 20:04 4 MG Polyethylene (Miralax Powder Packet) 17 gm DAILY PRN PO 05/06/17 14:30 06/05/17 14:29 Aspirin (Ecotrin Tab) 81 mg HS PO 05/06/17 21:00 06/05/17 20:59 05/09/17 19:53 81 MG Tamsulosin HCl (Flomax Cap) 0.4 mg HS PO 05/06/17 21:00 06/05/17 20:59 05/09/17 19:53 0.4 MG Zolpidem Tartrate (Ambien Tab) 10 mg HS PO 05/06/17 21:00 06/05/17 20:59 Morphine Sulfate (MoRPHine SULFATE INJ) 2 mg Q4H PRN IV 05/06/17 17:00 05/20/17 16:59 05/09/17 22:41 2 MG Ciprofloxacin (Consult) 1 ea UD PRN N/A 05/06/17 18:45 06/05/17 18:44 Heparin Sodium (Porcine) (Heparin Sq 5000 Unit/0.5ml) 5,000 unit Q8 SQ 05/06/17 22:00 06/05/17 21:59 05/07/17 22:21 5,000 UNIT Calcium Acetate (Phoslo Cap) 667 mg TIDM PO 05/08/17 12:00 06/07/17 11:59 05/09/17 16:58 667 MG Gentamicin Sulfate 65 mg/ [facility] 2,001.625 ml @ 0 mls/ hr DAILY@1000 IP 05/08/17 12:00 05/22/17 10:01 Future hold 05/08/17 13:16 2,000 MLS/HR Enteral Nutritional Formula (Boost Glucose Control) 1 can BIDM PO 05/08/17 17:00 06/07/17 16:59 05/09/17 16:59 1 CAN Promethazine HCl 25 mg/Sodium Chloride 51 ml @ 204 mls/hr Q6H PRN IV 05/09/17 03:45 06/08/17 03:44 05/09/17 04:11 204 MLS/HR Famotidine 20 mg/ Syringe 5 ml @ 2.5 mls/min Q12H IV 05/09/17 10:00 06/08/17 09:59 05/09/17 10:37 2.5 MLS/MIN Ciprofloxacin (Cipro Tab) 500 mg Q24H PO 05/09/17 20:00 05/15/17 19:59 05/09/17 21:36 500 MG Metronidazole (Flagyl Tab) 500 mg TID PO 05/09/17 20:00 05/19/17 19:59 05/09/17 21:36 500 MG Impression (1) ESRD on peritoneal dialysis (2) Anemia (3) Secondary hyperparathyroidism of renal origin (4) Diabetes mellitus (5) Peritonitis (6) Benign hypertension Sesar is a 51 y o M with ESRD on PD, admitted with peritonitis and possible diverticulitis. PD fluid study showed WBC>6000, pt noticed cloudy effluent. BP slightly elevated but electrolyte . volume status acceptable. No leukocytosis. had A/P CT suggestive of diverticulitis, pt was kept on NPO, started on IV fluid and Flagyl and cipro empirically. Recommendations --continued daily Gentamicin IP dwell with 0.6 mg/kg , received vanc 2 gm yesterday, trough this morning was 18 -- continue on Cycler for 5 exchanges with 1500 ml, will use Delfelx 1.5% alternate with 2.5%. -- on Boost -- Phos binder --dose meds for GFR <10 --arrangement made for IP antibiotic when patient goes home, will need total 2 weeks of antibiotic, discussed with the patient and patient knows to contact with PD nurse once he gets discharged Will follow while inpatient, okay to be discharged.
== END 2017-05-10 13:44 | disposition home or self-care (01) | DRG 371 ==
LOC: C.EDB 09:43 → C.2T 14:32 → EDBEDREQ 14:37 → ENRESERV 15:10 → CANRESERV 15:10 → CANBEDREQ 15:19 → ENRESERV 15:27 → C.MS4W 05-07 19:06
PROVIDERS: ADMIT Family Medicine; ATTEND Family Medicine
DX: K65.9 Peritonitis, unspecified (principal); N18.6 End stage renal disease; N25.81 Secondary hyperparathyroidism of renal origin; I12.0 Hypertensive chronic kidney disease with stage 5 chronic kidney disease or end stage renal disease; E03.9 Hypothyroidism, unspecified; Z79.82 Long term (current) use of aspirin; Z88.0 Allergy status to penicillin; Z80.9 Family history of malignant neoplasm, unspecified; Z82.49 Family history of ischemic heart disease and other diseases of the circulatory system; Z84.1 Family history of disorders of kidney and ureter

== ENCOUNTER 2017-06-20 14:19 | Inpatient (IN) | payer OTHER ==
[~2017-06-20] VITALS: Ht 182.9 cm; Wt 105.4 kg
[~2017-06-20 14:19] MED LIST changes: -BUPIVACAINE 0.5 % 5 MG/1 ML MPF 30ML VIAL ONE; -CALC667C PO; -CEFAZOLIN SOD 1 GM VIAL ONE; -DEXAMETHASONE SOD INJ 4 MG/ML VIAL ONE; -ERGO500011 PO; -ESMOLOL HCL 10 MG/ML 10 ML VIAL ONE; -FENTANYL CITRATE INJ 50 MCG/1 ML 2 ML VIAL ONE; -FLM4 PO; -GLYCOPYRROLATE INJ 0.2 MG/ML VIAL ONE; -HYDR-5688 PO; -LIDOCAINE HCL 2% 2 ML VIAL (20MG/ML) ONE; -MIDAZOLAM HCL 1 MG/ML 2ML VIAL ONE; -NEOSTIGMINE METHYLSULFATE 5 MG/5 ML SYR ONE; -ONDANSETRON INJ 2 MG/ML 2 ML VIAL ONE; -OPTIRAY 320 IV PRN; -PHENYLEPHRINE HCL INJ 10 MG/ML VIAL ONE; -PROPOFOL IV EMULSION 10 MG/ML 20 ML VIAL IV ONE; -ROCURONIUM BROMIDE 10 MG/ML 5 ML VIAL IV ONE; -ZFRODT/8 SL; -ZOLP10TA6 PO
[2017-06-20 14:44] LABS: BASO % 0.3 %; BASO ABS # 0.03 K/uL (0-0.2); EOS % 2.4 %; EOS ABS # 0.25 K/uL (0-0.5); HEMATOCRIT 45.9 % (42-52); HEMOGLOBIN 15.7 g/dL (14.0-18.0); IG# 0.07 K/uL (0.00-0.02); LYMPH % 10.7 %; LYMPH ABS # 1.14 K/uL (1.2-3.4); MEAN CELL VOLUME 88.1 fL (80-100); MEAN CORPUSCULAR HEMOGLOBIN 30.1 pg (25-34); MEAN CORPUSCULAR HGB CONC 34.2 g/dl (32-36); MEAN PLATELET VOLUME 11.2 fL (7.4-10.4); MONO % 4.7 %; NEUT % 81.2 %; NEUT ABS # 8.63 K/uL (1.4-6.5); PLATELET COUNT 222 K/uL (130-400); RED CELL DISTRIBUTION WIDTH CV 15.6 % (11.5-14.5); RED CELL DISTRIBUTION WIDTH SD 49.9 fL (36.4-46.3); WHITE BLOOD COUNT 10.62 K/uL (4.8-10.8)
[2017-06-20] MEDS ORDERED: ONDANSETRON INJ 2 MG/ML 2 ML VIAL IV STA (14:46)
[2017-06-20] MEDS ORDERED: LACTATED RINGER'S 1000ML 1,000 ML IV STA ×2 (14:46)
[2017-06-20] MEDS: HYDROmorphone INJ 1 MG/ML SYR IV PRN ×2 (14:56→15:15)
--- NOTE | 2017-06-20 15:24 | History and Physical ---
History & Physical Date & Time of Service: Jun 20, 2017 at 15:10 Chief Complaint: Abdominal Pain Primary Care Physician: Em Brannon DO History of Present Illness 51 y/o male with periumbilical pain, bulging around previous incision. Has noticed the hernia more over the past week, but today became suddenly and severely painful. Was scheduled to see Dr. Lyon next week to schedule repair. Was able to partially reduce this earlier but continues to have pain. Had outpatient CT and then referred to the ED for incarceration. NPO since 7:30 PM last night. Was admitted approx 6 weeks ago for diverticulitis. Past Medical/Surgical History Medical history: (1) ESRD on peritoneal dialysis (2) Anemia (3) Secondary hyperparathyroidism of renal origin (4) Diabetes mellitus (5) Peritonitis (6) Benign hypertension Surgical History: dialysis cath PD cath R index finger surgery Nephrectomy of left kidney for RCC Family History Cancer Diabetes mellitus Heart disease Hypertension Kidney disease Kidney stones Social History Smoking Status: Never Smoker Drug Use: none Marital Status: Occupational Status: employed Allergies Coded Allergies: Doxycycline (Verified Allergy, Severe, RASH, 05/06/17) phlebitis and pain with IV administration Penicillins (Verified Allergy, Mild, RASH, HIVES, ITCHING, 05/06/17) Home Medications Scheduled Aspirin (Aspirin 81), 81 MG PO HS Calcium Acetate (Phosphate Bin (Phoslo 667 Mg), 667 MG PO TIDM Ergocalciferol (Vitamin D 32810 Unit), 50,000 INTER.UNIT PO WK Tamsulosin HCl (Tamsulosin HCl), 0.4 MG PO HS Scheduled PRN Ondansetron (Ondansetron Odt), 8 MG SL Q6H PRN for Nausea Zolpidem Tartrate (Zolpidem Tartrate), 10 MG PO HS PRN for Sleep Review of Systems Constitutional: No fever, No chills Cardiovascular: + problem reported (elevated BP past few days) Abdomen: + pain, No vomiting Physical Exam Vital Signs Date Time Temp Pulse Resp B/P (MAP) Pulse Ox O2 Delivery O2 Flow Rate FiO2 06/20/17 15:02 73 26 117/119 98 Room Air 06/20/17 14:36 65 06/20/17 14:21 36.4 68 18 158/101 99 Room Air General Appearance: WD/WN, + mild distress ENT: normal ENT inspection Respiratory/Chest: lungs clear, normal breath sounds Cardiovascular: regular rate, rhythm, no edema Abdomen/GI: soft, + tenderness, + guarding, + hernia (periumbilical/incisional) Neurologic/Psych: normal mood/affect, oriented x 3 Diagnostics Laboratory Results Results Past 24 Hours Test 06/20/17 14:34 Range/Units White Blood Count 10.62 4.8-10.8 K/uL Red Blood Count 5.21 4.7-6.1 M/uL Hemoglobin 15.7 14.0-18.0 g/dL Hematocrit 45.9 42-52 % Mean Corpuscular Volume 88.1 80-100 fL Mean Corpuscular Hemoglobin 30.1 25-34 pg Mean Corpuscular Hemoglobin Concent 34.2 32-36 g/dl Platelet Count 222 130-400 K/uL Mean Platelet Volume 11.2 7.4-10.4 fL Neutrophils (%) (Auto) 81.2 % Lymphocytes (%) (Auto) 10.7 % Monocytes (%) (Auto) 4.7 % Eosinophils (%) (Auto) 2.4 % Basophils (%) (Auto) 0.3 % Neutrophils # (Auto) 8.63 1.4-6.5 K/uL Lymphocytes # (Auto) 1.14 1.2-3.4 K/uL Monocytes # (Auto) 0.50 0.11-0.59 K/uL Eosinophils # (Auto) 0.25 0-0.5 K/uL Basophils # (Auto) 0.03 0-0.2 K/uL RDW Standard Deviation 49.9 36.4-46.3 fL RDW Coefficient of Variation 15.6 11.5-14.5 % Immature Granulocyte % (Auto) 0.7 % Immature Granulocyte # (Auto) 0.07 0.00-0.02 K/uL Diagnostic Radiology CT IMPRESSION: 1. Hepatic steatosis and mild splenomegaly 2. Improving mild sigmoid diverticulitis 3. Surgically absent left kidney 4. Bowel containing supraumbilical ventral hernia. Although there are no findings to indicate a high-grade bowel obstruction, the bowel within the hernia sac is fluid-filled with surrounding fluid. The small bowel loop immediately proximal to the hernia is also fluid-filled and at the upper limits of normal in diameter. The more proximal small bowel is not dilated. A very early or low-grade obstruction at the hernia site cannot be excluded. 5. Normal appendix Electronically signed by: Blayne Auguste M.D. 06/20/2017 2:04 PM Dictated Date/Time: 06/20/2017 1:52 PM Impression Assessment and Plan 1. incarcerated incisional hernia 2. ESRD on peritoneal dialysis 3. Diabetes mellitus 4. HTN Requires urgent open repair of incarcerated hernia, likely without mesh. Will consult hospitalist to assist with medical management and nephrology for peritoneal dialysis. 06/20/17- pt examined- agree with above- incarcerated periumbilical hernia with small bowel- for repair. recent peritonitis w/ h/o peritoneal dialysis catheter- will not use mesh. Dr Christensen
[2017-06-20 15:29] LABS: ALBUMIN 3.8 gm/dl (3.4-5.0); CALCIUM 9.2 mg/dl (8.5-10.1); POTASSIUM 3.9 mmol/L (3.5-5.1)
[2017-06-20] MEDS ORDERED: CLINDAMYCIN IV 900 MG in DEXTROSE 5% 100ML 100 ML IV ONE (15:30)
[2017-06-20 15:31] LABS: CREATININE 7.48 mg/dl (0.60-1.40)
[2017-06-20] MEDS ORDERED: ERGO500011 PO ×2 (15:33)
[2017-06-20] MEDS ORDERED: ZFRODT/8 SL ×2 (15:33)
[2017-06-20] MEDS ORDERED: CALC667C PO ×2 (15:33)
[2017-06-20] MEDS ORDERED: FLM4 PO ×2 (15:33)
[2017-06-20] MEDS ORDERED: ZOLP10TA6 PO ×2 (15:33)
[2017-06-20] MEDS ORDERED: LABETALOL HCL IV 5 MG/ML 20ML IV PRN (16:00)
[2017-06-20] MEDS ORDERED: ONDANSETRON INJ 2 MG/ML 2 ML VIAL IV PRN (16:00)
[2017-06-20] MEDS ORDERED: ATROPINE SULFATE 0.1 MG/ML 5ML SYR IV PRN (16:00)
[2017-06-20] MEDS ORDERED: SODIUM CHLORIDE 0.9% 1000ML 1,000 ML IV SCH (16:57)
--- NOTE | 2017-06-20 16:57 | [facility] Operative Report ---
Operative Report Operative Date Jun 20, 2017. Pre-Operative Diagnosis Incarcerated Incisional Hernia Post-Operative Diagnosis Incarcerated Incisional Hernia Procedure(s) Performed Open Incarcerated Incisional Hernia Repair Surgeon Dr. Serge Christensen Economics Faculty Member Surgeon(s) Rogerio Maradiaga PA-C Estimated Blood Loss 10 mL Findings 3cm hernia- cloudy ascites, bowel normal- cultured fluid Specimens Microbiology #1. Intraabdominal Fluid Routine C/S, Anerobic/Aerobic, Gram Stain Sent to lab at 1635 Permanent specimens A: Incarcerated Incisional Hernia Sac Drains 1/4 in sergei to subcu Anesthesia Type General Complication(s) none Disposition Recovery Room / PACU I attest to the content of the Intraoperative Record and any orders documented therein. Any exceptions are noted below.
[2017-06-20] MEDS ORDERED: PROMETHAZINE HCL INJ 25 MG in SODIUM CHLORIDE 0.9% 50ML 50 ML IV PRN (17:00)
[2017-06-20] MEDS ORDERED: HYDROCODONE/ACETAMIN 5/325MG TAB PO PRN (17:00)
[2017-06-20] MEDS ORDERED: BUPIVACAINE 0.5 % 5 MG/1 ML MPF 30ML VIAL INJ ONE (17:05)
[2017-06-20] MEDS ORDERED: ZOLPIDEM TARTRATE 10 MG TAB PO PRN (17:15)
--- NOTE | 2017-06-20 17:21 | EMERGENCY ROOM VISIT NOTE ---
History Report prepared by Shiloh: Stephen Gaines Under the Supervision of: Dr. Torsten Pollock M.D. First contact with patient: 14:25 Chief Complaint: ABDOMINAL PAIN Stated Complaint: ABDOMINAL PAIN Nursing Triage Summary: pt reports he went to pcp for elevated bp and his hernia started to hurt and popped out. has bad pain in right kidney. has hx of ca in left kidney was removed. pain feels similiar History of Present Illness The patient is a 51 year old male who presents to the Emergency Room with complaints of severe and worsening pain in his abdomen that began this morning. The patient states that he has been experiencing these symptoms intermittently for the past 3 weeks, but notes that they worsened significantly this morning. The patient does have a known hernia, which "popped out" this morning. The patient visited with his PCP this morning who ordered an stat CT scan here at [facility]. When this CT scan was finished his PCP called him and instructed him to come to the Emergency Department immediately. This CT scan showed that the patient has bowel stuck in the hernia. He denies LOC, headache, fevers, chills , diaphoresis, visual changes, neck pain, chest pain, breathing difficulties, back pain, melena, hematochezia, urinary symptoms, numbness, weakness, lymphadenopathy, rash, or other complaints. Source of History: patient Onset: This morning Position: abdomen Symptom Intensity: severe Timing: worsening Associated Symptoms: No vomiting Review of Systems See HPI for pertinent positives and negatives. A total of ten systems were reviewed and were otherwise negative. Past Medical & Surgical Medical Problems: (1) Abdominal pain (2) Anemia (3) Benign hypertension (4) Cellulitis (5) Chronic kidney disease, stage V (6) Diabetes mellitus (7) ESRD on peritoneal dialysis (8) Fever (9) FSGS (focal segmental glomerulosclerosis) (10) Hyperglycemia (11) Hypothyroidism (12) Incarcerated incisional hernia (13) Leukocytosis (14) Peritoneal dialysis catheter dysfunction (15) Peritonitis (16) R index finger surgery (17) Secondary hyperparathyroidism of renal origin (18) Tunnel infection (19) Vision loss Family History Cancer Diabetes mellitus Heart disease Hypertension Kidney disease Kidney stones Social History Smoking Status: Never Smoker Alcohol Use: none Drug Use: none Marital Status: Housing Status: lives with family Occupation Status: employed Current/Historical Medications Scheduled Aspirin (Aspirin 81), 81 MG PO HS Calcium Acetate (Phosphate Bin (Phoslo 667 Mg), 667 MG PO TIDM Ergocalciferol (Vitamin D 06003 Unit), 50,000 INTER.UNIT PO WK Tamsulosin HCl (Tamsulosin HCl), 0.4 MG PO HS Scheduled PRN Ondansetron (Ondansetron Odt), 8 MG SL Q6H PRN for Nausea Zolpidem Tartrate (Zolpidem Tartrate), 10 MG PO HS PRN for Sleep Allergies Coded Allergies: Doxycycline (Verified Allergy, Severe, RASH, 05/06/17) phlebitis and pain with IV administration Penicillins (Verified Allergy, Mild, RASH, HIVES, ITCHING, 05/06/17) Physical Exam Vital Signs Date Time Temp Pulse Resp B/P (MAP) Pulse Ox O2 Delivery O2 Flow Rate FiO2 06/20/17 15:44 36.6 79 16 163/115 (131) 95 Room Air 06/20/17 15:16 62 18 161/115 98 Room Air 06/20/17 15:02 73 26 117/119 98 Room Air 06/20/17 14:36 65 06/20/17 14:21 36.4 68 18 158/101 99 Room Air Physical Exam GENERAL: Awake, alert, uncomfortable-appearing, in mild distress HENT: Normocephalic, atraumatic. Oropharynx unremarkable. EYES: Normal conjunctiva. Sclera non-icteric. NECK: Supple. No nuchal rigidity. FROM. No JVD. RESPIRATORY: Clear to auscultation. CARDIAC: Regular rate, normal rhythm. Extremities warm and well perfused. Pulses equal. ABDOMEN: Soft, non-distended. There is tenderness with rebound and guarding in the midline abdomen There is a left lower quadrant peritoneal dialysis catheter in place. RECTAL: Deferred. MUSCULOSKELETAL: Chest examination reveals no tenderness. The back is symmetrical on inspection without obvious abnormality. There is no CVA tenderness to palpation. No joint edema. LOWER EXTREMITIES: Calves are equal size bilaterally and non-tender. No edema. No discoloration. NEURO: Normal sensorium. No sensory or motor deficits noted. SKIN: No rash or jaundice noted. Medical Decision & Procedures Laboratory Results 06/20/17 14:34 Red Blood Count 5.21, Mean Corpuscular Volume 88.1, Mean Corpuscular Hemoglobin 30.1, Mean Corpuscular Hemoglobin Concent 34.2, Mean Platelet Volume 11.2, Neutrophils (%) (Auto) 81.2, Lymphocytes (%) (Auto) 10.7, Monocytes (%) (Auto) 4.7, Eosinophils (%) (Auto) 2.4, Basophils (%) (Auto) 0.3, Neutrophils # (Auto) 8.63, Lymphocytes # (Auto) 1.14, Monocytes # (Auto) 0.50, Eosinophils # (Auto) 0.25, Basophils # (Auto) 0.03 06/20/17 14:34 Test 06/20/17 14:34 White Blood Count 10.62 K/uL (4.8-10.8) Red Blood Count 5.21 M/uL (4.7-6.1) Hemoglobin 15.7 g/dL (14.0-18.0) Hematocrit 45.9 % (42-52) Mean Corpuscular Volume 88.1 fL (80-100) Mean Corpuscular Hemoglobin 30.1 pg (25-34) Mean Corpuscular Hemoglobin Concent 34.2 g/dl (32-36) Platelet Count 222 K/uL (130-400) Mean Platelet Volume 11.2 fL (7.4-10.4) Neutrophils (%) (Auto) 81.2 % Lymphocytes (%) (Auto) 10.7 % Monocytes (%) (Auto) 4.7 % Eosinophils (%) (Auto) 2.4 % Basophils (%) (Auto) 0.3 % Neutrophils # (Auto) 8.63 K/uL (1.4-6.5) Lymphocytes # (Auto) 1.14 K/uL (1.2-3.4) Monocytes # (Auto) 0.50 K/uL (0.11-0.59) Eosinophils # (Auto) 0.25 K/uL (0-0.5) Basophils # (Auto) 0.03 K/uL (0-0.2) RDW Standard Deviation 49.9 fL (36.4-46.3) RDW Coefficient of Variation 15.6 % (11.5-14.5) Immature Granulocyte % (Auto) 0.7 % Immature Granulocyte # (Auto) 0.07 K/uL (0.00-0.02) Anion Gap 9.0 mmol/L (3-11) Est Creatinine Clear Calc Drug Dose 14.5 ml/min Estimated GFR () 8.7 Estimated GFR (Non- 7.5 BUN/Creatinine Ratio 4.8 (10-20) Calcium Level 9.2 mg/dl (8.5-10.1) Total Bilirubin 0.6 mg/dl (0.2-1) Direct Bilirubin 0.1 mg/dl (0-0.2) Aspartate Amino Transf (AST/SGOT) 15 U/L (15-37) Alanine Aminotransferase (ALT/SGPT) 29 U/L (12-78) Alkaline Phosphatase 90 U/L (45-117) Total Protein 8.0 gm/dl (6.4-8.2) Albumin 3.8 gm/dl (3.4-5.0) Lipase 362 U/L (73-393) Laboratory results reviewed by me Medications Administered Medications (Trade) Dose Ordered Sig/Leland Route Start Time Stop Time Status Last Admin Dose Admin Hydromorphone HCl (Dilaudid Inj) 1 mg Q15M PRN IV 06/20/17 15:00 07/04/17 14:59 06/20/17 15:15 1 MG Ondansetron HCl (Zofran Inj) 4 mg NOW STAT IV 06/20/17 14:46 06/20/17 14:48 DC 06/20/17 14:55 4 MG Lactated Ringer's 1,000 ml @ 999 mls/hr Q1H1M STAT IV 06/20/17 14:46 06/20/17 15:46 DC 06/20/17 14:57 999 MLS/HR Bupivacaine HCl (Marcaine 0.5% MPF Inj) 6 ml ONE ONCE INJ 06/20/17 17:05 06/20/17 17:06 DC 06/20/17 17:05 6 ML ED Course 1444: The patient was evaluated in room C4. A complete history and physical exam was performed. 1446: Ordered Lactated Ringer's 1000 mL @ 125 mL/hr IV, Lactated Ringer's 1000 mL @ 999 mL/hr IV. 1446: Ordered Zofran 4 mg IV. 1513: I discussed the case with Junior Maradiaga - Denis BRIGHT. He will come evaluate the patient in the department. Medical Decision Triage Nursing notes reviewed. The patient's presentation and history were concerning for abdominal pain. Etiologies such as incarcerated hernia, appendicitis, diverticulitis, obstruction, inflammatory bowel disease, renal colic, PUD, biliary pathology, pancreatitis, mesenteric ischemia, aortic pathology, infections, genitourinary, UTI, perforated viscus, as well as others were entertained. The patient was evaluated. Record reviewed and I reviewed his CAT scan imaging. He has an incarcerated hernia with some mild obstructive change. He was uncomfortable. Blood work was obtained. He was given IV Dilaudid and Zofran for symptom control. He was kept n.p.o. and fluid hydration was administered. His CBC was Unremarkable. Chemistry panel was unremarkable except for an elevated creatinine consistent with his end-stage renal disease. Consultation was made with general surgery. The patient was taken emergently to the operating room for further treatment. Consults Time Called: 1510 Consulting Physician: Junior Barrios PA-C Returned Call: [phone] I discussed the case with Junior Barrios PA-C. He will come evaluate the patient in the department. Impression Primary Impression: Incarcerated hernia of abdominal cavity Scribe Attestation The scribe's documentation has been prepared under my direction and personally reviewed by me in its entirety. I confirm that the note above accurately reflects all work, treatment, procedures, and medical decision making performed by me. Departure Information Dispostion Being Evaluated By Surgeon Em Robles DO (PCP) Patient Instructions [facility]
[2017-06-20] MEDS: HYDROmorphone INJ 2 MG/ML SYR/VIAL IV PRN ×6 (17:30→17:55)
--- NOTE | 2017-06-20 17:51 | Nephrology Consultation ---
Nephrology Consultation Date & Providers Date of Consultation: Jun 20, 2017. Primary Care Provider: Em Brannon DO Referring Provider: Reason for Consultation ESRD on PD History of Present Illness Mr. Sesar Hernandez is a 51 year-old male with ESRD. 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 He is maintained on PD. Sesar performs CCPD with 1500 ml dwells, 5 exchanges overnight. He has been tolerated treatment well. Last treatment was performed yesterday evening without complications. Sesar was recently admitted to [facility] in April 2017 with diverticulitis and peritonitis. Culture negative. He was treated with oral ciprofloxacin and Flagyl as well as a course of IP vanco/gentamicin. Effluent has been clear and Sesar denies any recent symptoms of peritonitis. I saw Sesar yesterday in the dialysis unit. He noted some elevated BP readings at that time but asymptomatic. Sesar has an ongoing history of abdominal pain and discomfort. He has a known ventral hernia. The patient presented with symptoms suggestive of an incarcerated incisional hernia. Surgery was performed by Dr. Christensen without complications. I saw and examined Sesar in the PACU. Sesar was recovering from anesthesia. I was able to discuss the plan plan of care with Dr. Christensen. Sesar's brother recent from complications related to cirrhosis. He reports expected grief and emotional stress related to this. Past Medical/Surgical History Medical: Anemia CRD (chronic renal disease), stage V Hyperlipidemia Hyperphosphatemia Hypertension Hypertriglyceridemia Hypothyroidism GERD Obstructive sleep apnea Proteinuria Solitary thyroid nodule Type 2 diabetes mellitus Vitamin D deficiency ALBA . Surgical: Kidney biopsy in 2013. Radical nephrectomy. PD catheter placement. PD catheter removal. Incisional hernia repair. Allergies Coded Allergies: Doxycycline (Verified Allergy, Severe, RASH, 05/06/17) phlebitis and pain with IV administration Penicillins (Verified Allergy, Mild, RASH, HIVES, ITCHING, 05/06/17) Inpatient Medications Current Inpatient Medications Medications (Trade) Dose Ordered Sig/Leland Route Start Time Stop Time Status Last Admin Dose Admin Hydromorphone HCl (Dilaudid Inj) 1 mg Q15M PRN IV 06/20/17 15:00 07/04/17 14:59 06/20/17 15:15 1 MG Lactated Ringer's 1,000 ml @ 125 mls/hr Q8H STAT IV 06/20/17 14:46 06/20/17 22:45 Ondansetron HCl (Zofran Inj) 4 mg ONE PRN IV 06/20/17 16:00 06/20/17 21:00 Atropine Sulfate (Atropine Sulfate 0.1mg/ml Inj) 0.5 mg Q1M PRN IV 06/20/17 16:00 06/20/17 21:00 Hydromorphone HCl (Dilaudid Inj) 0.25 mg Q5M PRN IV 06/20/17 16:00 06/20/17 21:00 Labetalol HCl (Normodyne IV) 5 mg Q5M PRN IV 06/20/17 16:00 06/20/17 21:00 Sodium Chloride 1,000 ml @ 50 mls/hr Q20H IV 06/20/17 16:57 06/20/17 19:00 UNV Clindamycin Phosphate (Cleocin 600mg/ 54ml D5W) 600 mg Q8 IV 06/20/17 22:00 06/30/17 21:59 UNV Hydromorphone HCl (Dilaudid Inj) 0.5 mg Q3H PRN IV 06/20/17 17:00 07/04/17 16:59 UNV Hydromorphone HCl (Dilaudid Inj) 1 mg Q3H PRN IV 06/20/17 17:00 07/04/17 16:59 UNV Acetaminophen/ Hydrocodone Bitart ([place] 5/325 Tab) 1 tab Q4 PRN PO 06/20/17 17:00 07/04/17 16:59 UNV Acetaminophen/ Hydrocodone Bitart ([place] 5/325 Tab) 2 tab Q4 PRN PO 06/20/17 17:00 07/04/17 16:59 UNV Senna/Docusate Sodium (Senokot S Tab) 1 tab BID PO 06/20/17 21:00 07/20/17 20:59 UNV Promethazine HCl 25 mg/Sodium Chloride 51 ml @ 204 mls/hr Q6H PRN IV 06/20/17 17:00 07/20/17 16:59 UNV Ondansetron HCl (Zofran Inj) 4 mg Q6H PRN IV 06/20/17 17:00 07/20/17 16:59 UNV Aspirin (Ecotrin Tab) 81 mg HS PO 06/20/17 21:00 07/20/17 20:59 UNV Calcium Acetate (Phoslo Cap) 667 mg TIDM PO 06/20/17 18:00 07/20/17 17:59 UNV Tamsulosin HCl (Flomax Cap) 0.4 mg HS PO 06/20/17 21:00 07/20/17 20:59 UNV Zolpidem Tartrate (Ambien Tab) 10 mg HS PRN PO 06/20/17 17:15 07/20/17 17:14 UNV Family History Cancer Diabetes mellitus Heart disease Hypertension Kidney disease Kidney stones Social History Smoking Status: Never Smoker Drug Use: none Marital Status: Occupation: employed Review of Systems A complete review of systems was performed. Pertinent positives are noted above. All other systems are negative. Physical Exam Date Time Temp Pulse Resp B/P (MAP) Pulse Ox O2 Delivery O2 Flow Rate FiO2 06/20/17 17:25 82 22 144/100 99 Oxymask 5 06/20/17 17:16 36.4 92 22 138/99 98 Oxymask 5 06/20/17 15:44 36.6 79 16 163/115 (131) 95 Room Air 06/20/17 15:16 62 18 161/115 98 Room Air 06/20/17 15:02 73 26 117/119 98 Room Air 06/20/17 14:36 65 06/20/17 14:21 36.4 68 18 158/101 99 Room Air General Appearance: no apparent distress, + obese Head: normocephalic, atraumatic Eyes: normal inspection, sclerae normal ENT: normal ENT inspection, pharynx normal Neck: supple, no JVD Respiratory/Chest: lungs clear, no respiratory distress, no accessory muscle use Cardiovascular: regular rate, rhythm, no gallop Abdomen/GI: non tender, soft, + pertinent finding (Incision with dressing CDI, PD exit site clear) Extremities/Musculoskelatal: normal inspection, no pedal edema Neurologic/Psych: alert, normal mood/affect Laboratory Results Last 24 Hours Test 06/20/17 14:34 White Blood Count 10.62 K/uL Red Blood Count 5.21 M/uL Hemoglobin 15.7 g/dL Hematocrit 45.9 % Mean Corpuscular Volume 88.1 fL Mean Corpuscular Hemoglobin 30.1 pg Mean Corpuscular Hemoglobin Concent 34.2 g/dl Platelet Count 222 K/uL Mean Platelet Volume 11.2 fL Neutrophils (%) (Auto) 81.2 % Lymphocytes (%) (Auto) 10.7 % Monocytes (%) (Auto) 4.7 % Eosinophils (%) (Auto) 2.4 % Basophils (%) (Auto) 0.3 % Neutrophils # (Auto) 8.63 K/uL Lymphocytes # (Auto) 1.14 K/uL Monocytes # (Auto) 0.50 K/uL Eosinophils # (Auto) 0.25 K/uL Basophils # (Auto) 0.03 K/uL RDW Standard Deviation 49.9 fL RDW Coefficient of Variation 15.6 % Immature Granulocyte % (Auto) 0.7 % Immature Granulocyte # (Auto) 0.07 K/uL Sodium Level 137 mmol/L Potassium Level 3.9 mmol/L Chloride Level 104 mmol/L Carbon Dioxide Level 25 mmol/L Anion Gap 9.0 mmol/L Blood Urea Nitrogen 36 mg/dl Creatinine 7.48 mg/dl Est Creatinine Clear Calc Drug Dose 14.5 ml/min Estimated GFR () 8.7 Estimated GFR (Non- 7.5 BUN/Creatinine Ratio 4.8 Random Glucose 93 mg/dl Calcium Level 9.2 mg/dl Total Bilirubin 0.6 mg/dl Direct Bilirubin 0.1 mg/dl Aspartate Amino Transf (AST/SGOT) 15 U/L Alanine Aminotransferase (ALT/SGPT) 29 U/L Alkaline Phosphatase 90 U/L Total Protein 8.0 gm/dl Albumin 3.8 gm/dl Lipase 362 U/L Impression (1) ESRD on peritoneal dialysis (2) Incarcerated incisional hernia (3) Benign hypertension Mr. Sesar Hernandez is a 51 year-old male with obesity, nonalcoholic steatohepatitis, diabetes mellitus, hypothyroidism, hypertension, FSGS, arteriolosclerosis and CKD V following nephrectomy for a localized RCC. A buried PD catheter was placed initially on October 13, 2015. The catheter was externalized on June 14 2015. Unfortunately, catheter failed to drain and the patient developed a tunnel tract infection requiring removal of the catheter. Sesar was maintained on HD for a period of 3 months. He transitioned to PD in September of 2015. Recent complications include culture negative peritonitis in April 2017 in the setting of diverticulitis. This was treated with IP vanco/ gent. Sesar presented to the ER with abdominal pain related to an incarcerated incisional hernia. Surgery was completed without complications. PD catheter was untouched. No mesh required. Recommendations ESRD on PD: -- BP, volume status and electrolytes are acceptable at this time -- No need for dialysis overnight -- Plan to restart PD tomorrow with low fill volume exchanges -- Medications are appropriately dosed for renal function -- Peritoneal fluid was sent for culture intraoperatively -- Avoid mIVF Hypertension: -- Monitor BP, it has been running high at home -- Plan to restart losartan if BP remains elevated
[2017-06-20] MEDS: CALCIUM ACETATE 667MG GELCAP PO SCH (18:00)
[2017-06-20] MEDS ORDERED: PROMETHAZINE HCL INJ 12.5 MG in SODIUM CHLORIDE 0.9% 50ML 50 ML IV PRN (18:00)
[2017-06-20 18:20] VITALS: BP 144/95; PULSE 95; TEMP 36.7; O2SAT 95
[2017-06-20 18:25] VITALS: O2SAT 95
--- NOTE | 2017-06-20 18:32 | Anesthesiology Progress Note ---
Anesthesia Post Op Note Date & Time Jun 20, 2017 at 18:32 Vital Signs Vital Signs Past 12 Hours Date Time Temp Pulse Resp B/P (MAP) Pulse Ox O2 Delivery O2 Flow Rate FiO2 06/20/17 18:25 95 Nasal Cannula 3.0 06/20/17 18:20 36.7 95 16 144/95 (111) 95 Nasal Cannula 3.0 06/20/17 18:05 36.6 82 20 131/87 97 Nasal Cannula 3 06/20/17 17:55 81 22 141/101 97 Nasal Cannula 3 06/20/17 17:50 85 22 146/99 98 Oxymask 3 06/20/17 17:45 82 22 134/100 99 Oxymask 3 06/20/17 17:35 89 22 144/106 99 Oxymask 3 06/20/17 17:25 82 22 144/100 99 Oxymask 5 06/20/17 17:16 36.4 92 22 138/99 98 Oxymask 5 06/20/17 15:44 36.6 79 16 163/115 (131) 95 Room Air 06/20/17 15:16 62 18 161/115 98 Room Air 06/20/17 15:02 73 26 117/119 98 Room Air 06/20/17 14:36 65 06/20/17 14:21 36.4 68 18 158/101 99 Room Air Notes Mental Status: alert / awake / arousable, participated in evaluation Pt Amnestic to Procedure: Yes Nausea / Vomiting: adequately controlled Pain: adequately controlled Airway Patency, RR, SpO2: stable & adequate BP & HR: stable & adequate Hydration State: stable & adequate Anesthetic Complications: no major complications apparent
[2017-06-20 18:36] VITALS: Ht 182.9 cm; Wt 105.4 kg
[2017-06-20 18:52] VITALS: BP 152/88; PULSE 78; TEMP 36.6; O2SAT 95
[2017-06-20 19:23] VITALS: BP 132/91; PULSE 64; O2SAT 92
[2017-06-20] MEDS: HYDROmorphone INJ 0.5 MG/0.5 ML SYR IV PRN (19:28)
[2017-06-20 20:21] VITALS: BP 141/94; PULSE 82; TEMP 37.1; O2SAT 91
--- NOTE | 2017-06-20 20:46 | OPERATIVE REPORT ---
DATE OF OPERATION: 06/20/2017 PROCEDURE: Incarcerated incisional hernia repair. PREOPERATIVE DIAGNOSIS: Incarcerated incisional hernia POSTOPERATIVE DIAGNOSIS: Same. STAFF SURGEON: Serge Christensen MD. TRIAL ATTORNEY: Rogerio Maradiaga PA-C. ANESTHESIA: General. DESCRIPTION OF THE PROCEDURE: The patient was brought in the operating room and placed on the operating room table in a supine position. Pneumatic stockings and orogastric tube were placed. His abdomen was prepped and draped in usual fashion and also over a left abdominal peritoneal dialysis catheter and then an Op-Site was placed over the catheter. The area was toweled off and then using 0.5% plain Marcaine, skin and subcutaneous tissue were anesthetized above the umbilicus. Incision was made in that area carrying dissection down identifying the hernia sac. It was opened. The bowel had already reduced. The bowel was completely viable. There was cloudy fluid within the abdomen. This was cultured. The sac was then dissected away from the subcutaneous tissue and debrided. Subcutaneous tissue was dissected away from the fascia. The defect was approximately 3 cm in diameter and appeared to close transversely without much tension using interrupted #1 Prolene suture. An 0 chromic catgut suture and 2-0 chromic catgut suture were used to bury the knots of the suture. Quarter inch Chelo drain was placed into the wound. Deep tissue was reapproximated using 2-0 plain catgut suture then the skin reapproximated using 4-0 nylon suture. The drain was also secured using 4-0 nylon suture. My concern was that the patient is on peritoneal dialysis and he may have some leakage and also that the fluid was relatively cloudy during the operation. Dressing was applied and the patient transferred to recovery room in stable condition. My assistant media planner helped with prepping, draping, incision, exposure of the hernia, debridement of the hernia, closure of the hernia and then closure of the wound. I attest to the content of the Intraoperative Record and any orders documented therein. Any exception s are noted below.
[2017-06-20] MEDS: TAMSULOSIN HCL 0.4 MG CAP PO SCH (20:49)
[2017-06-20] MEDS: DOCUSATE SODIUM/SENNA 50/8.6MG TAB PO SCH (20:49)
[2017-06-20] MEDS: ASPIRIN 81 MG ECTAB PO SCH (20:49)
[2017-06-20] MEDS: HYDROCODONE/ACETAMIN 5/325MG TAB PO PRN (20:56)
[2017-06-20 21:47] VITALS: BP 136/89; PULSE 62; TEMP 37.2; O2SAT 93
[2017-06-20] MEDS ORDERED: CLINDAMYCIN 600 MG/54 ML D5W IV SCH (22:00)
--- NOTE | 2017-06-20 22:24 | Medical Consult ---
Consultation Date of Consultation: Jun 20, 2017. Attending Physician: Serge Christensen M.D. Reason for Consultation: Postoperative medical management History of Present Illness Patient is a 51 year old male with a past medical history of ESRD that is POD # 0 s/p hernia repair. The patient presented with worsening pain and CT appearance of incarceration and was taken for surgery by Dr. Christensen. The patient was scheduled for surgery next week with Dr. Lyon although due to the progression of pain and incarceration patient was taken for surgery today. Patient was evaluated previously for surgery but plan was to wait 6 week after patient was earlier admitted to the hospital for Diverticulitis. The patient follows with Dr. Barreto of Nephrology for ESRD 2/2 FSGS and also has a solitary kidney due to RCC. He currently gets peritoneal dialysis MWF and received dialysis yesterday. The patient postoperatively has no complaints at this time and denies any abdominal pain, chest pain, shortness of breath, fever, or chills. Past Medical/Surgical History Medical Problems: (1) Acute febrile illness Status: Acute (2) Diarrhea Status: Acute (3) End stage renal disease Status: Acute (4) Incarcerated hernia of abdominal cavity Status: Acute (5) Renal insufficiency Status: Acute (6) SBP (spontaneous bacterial peritonitis) Status: Acute (7) Uncontrolled diabetes mellitus Status: Acute Family History Cancer Diabetes mellitus Heart disease Hypertension Kidney disease Kidney stones Social History Smoking Status: Never Smoker Drug Use: none Marital Status: Housing Status: lives with family Occupation Status: employed Allergies Coded Allergies: Doxycycline (Verified Allergy, Severe, RASH, 05/06/17) phlebitis and pain with IV administration Penicillins (Verified Allergy, Mild, RASH, HIVES, ITCHING, 05/06/17) Current Inpatient Medications Current Inpatient Medications Medications (Trade) Dose Ordered Sig/Leland Route Start Time Stop Time Status Last Admin Dose Admin Hydromorphone HCl (Dilaudid Inj) 0.5 mg Q3H PRN IV 06/20/17 17:00 07/04/17 16:59 06/20/17 19:28 0.5 MG Hydromorphone HCl (Dilaudid Inj) 1 mg Q3H PRN IV 06/20/17 17:00 07/04/17 16:59 Acetaminophen/ Hydrocodone Bitart ([place] 5/325 Tab) 1 tab Q4 PRN PO 06/20/17 17:00 07/04/17 16:59 Acetaminophen/ Hydrocodone Bitart ([place] 5/325 Tab) 2 tab Q4 PRN PO 06/20/17 17:00 07/04/17 16:59 06/20/17 20:56 2 TAB Senna/Docusate Sodium (Senokot S Tab) 1 tab BID PO 06/20/17 21:00 07/20/17 20:59 06/20/17 20:49 1 TAB Promethazine HCl 25 mg/Sodium Chloride 51 ml @ 204 mls/hr Q6H PRN IV 06/20/17 17:00 07/20/17 16:59 Ondansetron HCl (Zofran Inj) 4 mg Q6H PRN IV 06/20/17 17:00 07/20/17 16:59 Aspirin (Ecotrin Tab) 81 mg HS PO 06/20/17 21:00 07/20/17 20:59 06/20/17 20:49 81 MG Calcium Acetate (Phoslo Cap) 667 mg TIDM PO 06/20/17 18:00 07/20/17 17:59 Tamsulosin HCl (Flomax Cap) 0.4 mg HS PO 06/20/17 21:00 07/20/17 20:59 06/20/17 20:49 0.4 MG Zolpidem Tartrate (Ambien Tab) 10 mg HS PRN PO 06/20/17 17:15 07/20/17 17:14 06/20/17 20:49 10 MG Promethazine HCl 12.5 mg/Sodium Chloride 50.5 ml @ 204 mls/hr Q6H PRN IV 06/20/17 18:00 07/20/17 17:59 Clindamycin Phosphate 600 mg/ Dextrose 54 ml @ 108 mls/hr Q8H IV 06/21/17 00:00 07/01/17 00:00 Review of Systems See HPI for pertinent positives and negatives. A total of ten systems were reviewed and were otherwise negative. Physical Exam Date Time Temp Pulse Resp B/P (MAP) Pulse Ox O2 Delivery O2 Flow Rate FiO2 06/20/17 21:47 37.2 62 18 136/89 (105) 93 Room Air 06/20/17 20:21 37.1 82 18 141/94 (110) 91 Room Air 06/20/17 19:23 64 18 132/91 (105) 92 Room Air 06/20/17 18:52 36.6 78 18 152/88 (109) 95 Nasal Cannula 06/20/17 18:36 Room Air 3.0 06/20/17 18:25 95 Nasal Cannula 3.0 06/20/17 18:20 36.7 95 16 144/95 (111) 95 Nasal Cannula 3.0 06/20/17 18:05 36.6 82 20 131/87 97 Nasal Cannula 3 06/20/17 17:55 81 22 141/101 97 Nasal Cannula 3 06/20/17 17:50 85 22 146/99 98 Oxymask 3 06/20/17 17:45 82 22 134/100 99 Oxymask 3 06/20/17 17:35 89 22 144/106 99 Oxymask 3 06/20/17 17:25 82 22 144/100 99 Oxymask 5 06/20/17 17:16 36.4 92 22 138/99 98 Oxymask 5 06/20/17 15:44 36.6 79 16 163/115 (131) 95 Room Air 06/20/17 15:16 62 18 161/115 98 Room Air 06/20/17 15:02 73 26 117/119 98 Room Air 06/20/17 14:36 65 06/20/17 14:21 36.4 68 18 158/101 99 Room Air General Appearance: no apparent distress, + obese Head: normocephalic, atraumatic Eyes: normal inspection, sclerae normal Neck: supple, no carotid bruits Respiratory/Chest: chest non-tender, lungs clear, normal breath sounds Cardiovascular: regular rate, rhythm, no edema, no gallop Abdomen/GI: normal bowel sounds, + tenderness (over right upper quadrant), + distended, + pertinent finding (Dressing over umbilical region c/d/i) Extremities/Musculoskelatal: no calf tenderness, no pedal edema Neurologic/Psych: alert, normal mood/affect, oriented x 3 Laboratory Results Last 24 Hours Test 06/20/17 14:34 06/20/17 20:24 White Blood Count 10.62 K/uL Red Blood Count 5.21 M/uL Hemoglobin 15.7 g/dL Hematocrit 45.9 % Mean Corpuscular Volume 88.1 fL Mean Corpuscular Hemoglobin 30.1 pg Mean Corpuscular Hemoglobin Concent 34.2 g/dl Platelet Count 222 K/uL Mean Platelet Volume 11.2 fL Neutrophils (%) (Auto) 81.2 % Lymphocytes (%) (Auto) 10.7 % Monocytes (%) (Auto) 4.7 % Eosinophils (%) (Auto) 2.4 % Basophils (%) (Auto) 0.3 % Neutrophils # (Auto) 8.63 K/uL Lymphocytes # (Auto) 1.14 K/uL Monocytes # (Auto) 0.50 K/uL Eosinophils # (Auto) 0.25 K/uL Basophils # (Auto) 0.03 K/uL RDW Standard Deviation 49.9 fL RDW Coefficient of Variation 15.6 % Immature Granulocyte % (Auto) 0.7 % Immature Granulocyte # (Auto) 0.07 K/uL Sodium Level 137 mmol/L Potassium Level 3.9 mmol/L Chloride Level 104 mmol/L Carbon Dioxide Level 25 mmol/L Anion Gap 9.0 mmol/L Blood Urea Nitrogen 36 mg/dl Creatinine 7.48 mg/dl Est Creatinine Clear Calc Drug Dose 14.5 ml/min Estimated GFR () 8.7 Estimated GFR (Non- 7.5 BUN/Creatinine Ratio 4.8 Random Glucose 93 mg/dl Calcium Level 9.2 mg/dl Total Bilirubin 0.6 mg/dl Direct Bilirubin 0.1 mg/dl Aspartate Amino Transf (AST/SGOT) 15 U/L Alanine Aminotransferase (ALT/SGPT) 29 U/L Alkaline Phosphatase 90 U/L Total Protein 8.0 gm/dl Albumin 3.8 gm/dl Lipase 362 U/L Urine Color YELLOW Urine Appearance CLEAR Urine pH 6.0 Urine Specific [place] 1.041 Urine Protein 4+ Urine Glucose (UA) 1+ Urine Ketones NEG Urine Occult Blood 1+ Urine Nitrite NEG Urine Bilirubin NEG Urine Urobilinogen NEG Urine Leukocyte Esterase NEG Urine WBC (Auto) 1-5 /hpf Urine RBC (Auto) 0-4 /hpf Urine Hyaline Casts (Auto) 5-10 /lpf Urine Epithelial Cells (Auto) >30 /lpf Urine Bacteria (Auto) 1+ Urine Renal Epithelial Cells /lpf Assessment & Plan Patient is a 51 year old male with a past medical history of ESRD that is POD # 0 s/p hernia repair POD #0 s/p Hernia Repair - Dressing c/d/i - Pain well controlled at this time --> Dilaudid and [place] as needed - Continue with management as per General Surgery recommendations - Continue to monitor bowel movements, no flatulence at this time --> Dose of Senna this evening ESRD on PD - Plan to resume peritoneal dialysis tomorrow - Nephrology continuing to manage - Renal dosing of medications HTN - Blood pressure currently well controlled - Resume PO Lisinopril if pressure increase BPH - Resume home Flomax DVT - SCDs Insomnia - Continue home Zolpidem Code Status - Full Resuscitation Attending addendum: I have physically seen this patient, have supervised the medical residents activities, and agree with the H&P unless as otherwise noted. Assessment and Plan: Postop hernia repair--medically stable Hypertension/ESRD on HD-- Blood pressure acceptable at this time. Lisinopril as noted above. PD to resume tomorrow. BPH--Flomax at bedtime Resident Tracking Resident Involvement: Resident Care Provided Care Provided: Adult [facility] Medicine
[2017-06-21] VITALS (7 sets, daily range): BP systolic 142–154; BP diastolic 90–94; PULSE 62–80; TEMP 36.8–37.2; O2SAT 92–97
[2017-06-21] MEDS: CLINDAMYCIN IV 600 MG in DEXTROSE 5% 50ML 50 ML IV SCH ×4 (00:59→23:42)
[2017-06-21] MEDS: HYDROmorphone INJ 0.5 MG/0.5 ML SYR IV PRN ×2 (01:07→02:37)
--- NOTE | 2017-06-21 05:36 | Discharge Instructions ---
Discharge Instructions Date of Service Jun 21, 2017. Admission Reason for Admission: Incarcerated Incisional Hernia Discharge Discharge Diagnosis / Problem: incarcerated hernia Discharge Goals Goal(s): Decrease discomfort, Improve function, Improve disease control Activity Recommendations Activity Limitations: as noted below Lifting Limitations: no more than 25 pounds Exercise/Sports Limitations: until after follow-up appointment May Resume Sexual Activity: when tolerated Shower/Bathe: tomorrow Driving or Machine Use: resume 3 days after discharge . Instructions / Follow-Up Instructions / Follow-Up SPECIAL CARE INSTRUCTIONS: * Cover incisions and change daily for comfort/drainage. Avoid constipation-may use Senokot S and milk of magnesia twice daily As directed on the package * May use ibuprofen for pain as tolerated. * Expect some swelling and bruising. Call your doctor if: * Temperature above 101 degrees * Pain not relieved by pain medicine ordered * There is increased drainage or redness from any incision * You have any unanswered questions or concerns [phone]. FOLLOW UP VISIT: If not already scheduled, please call the office for a follow-up visit. Next week- Sat or Sat- drain removal- please call for appt OFFICE PHONE NUMBER: Dr. Christensen Office Current Hospital Diet Patient's current hospital diet: Regular Diet Discharge Diet Recommended Diet: Regular Diet Procedures Procedures Performed: Open Incarcerated Incisional Hernia Repair Pending Studies Studies pending at discharge: no Medical Emergencies . Who to Call and When: Medical Emergencies: If at any time you feel your situation is an emergency, please call 911 immediately. . Non-Emergent Contact Non-Emergency issues call your: Primary Care Provider, Surgeon . "Provider Documentation" section prepared by Serge Christensen. .
[2017-06-21] MEDS ORDERED: HYDR-5688 PO ×2 (05:37)
--- NOTE | 2017-06-21 06:09 | Surgery Progress Note ---
Surgery Progress Note Date of Service Jun 21, 2017. Subjective awake , alert- some pain- controlled with meds expected wound drainage Objective Vital Signs: Date Time Temp Pulse Resp B/P (MAP) Pulse Ox O2 Delivery O2 Flow Rate FiO2 06/21/17 02:07 37.1 62 16 144/93 (110) 93 Room Air 06/21/17 01:00 Room Air 06/20/17 21:47 37.2 62 18 136/89 (105) 93 Room Air 06/20/17 20:21 37.1 82 18 141/94 (110) 91 Room Air 06/20/17 19:23 64 18 132/91 (105) 92 Room Air 06/20/17 18:52 36.6 78 18 152/88 (109) 95 Nasal Cannula 06/20/17 18:36 Room Air 3.0 06/20/17 18:25 95 Nasal Cannula 3.0 06/20/17 18:20 36.7 95 16 144/95 (111) 95 Nasal Cannula 3.0 06/20/17 18:05 36.6 82 20 131/87 97 Nasal Cannula 3 06/20/17 17:55 81 22 141/101 97 Nasal Cannula 3 06/20/17 17:50 85 22 146/99 98 Oxymask 3 06/20/17 17:45 82 22 134/100 99 Oxymask 3 06/20/17 17:35 89 22 144/106 99 Oxymask 3 06/20/17 17:25 82 22 144/100 99 Oxymask 5 06/20/17 17:16 36.4 92 22 138/99 98 Oxymask 5 06/20/17 15:44 36.6 79 16 163/115 (131) 95 Room Air 06/20/17 15:16 62 18 161/115 98 Room Air 06/20/17 15:02 73 26 117/119 98 Room Air 06/20/17 14:36 65 06/20/17 14:21 36.4 68 18 158/101 99 Room Air General Appearance: no apparent distress Respiratory/Chest: no respiratory distress Abdomen: + distended Incision(s): intact, drainage (has subcut sergei in place) Laboratory Results: Results Past 24 Hours Test 06/20/17 14:34 06/20/17 20:24 Range/Units White Blood Count 10.62 4.8-10.8 K/uL Red Blood Count 5.21 4.7-6.1 M/uL Hemoglobin 15.7 14.0-18.0 g/dL Hematocrit 45.9 42-52 % Mean Corpuscular Volume 88.1 80-100 fL Mean Corpuscular Hemoglobin 30.1 25-34 pg Mean Corpuscular Hemoglobin Concent 34.2 32-36 g/dl Platelet Count 222 130-400 K/uL Mean Platelet Volume 11.2 7.4-10.4 fL Neutrophils (%) (Auto) 81.2 % Lymphocytes (%) (Auto) 10.7 % Monocytes (%) (Auto) 4.7 % Eosinophils (%) (Auto) 2.4 % Basophils (%) (Auto) 0.3 % Neutrophils # (Auto) 8.63 1.4-6.5 K/uL Lymphocytes # (Auto) 1.14 1.2-3.4 K/uL Monocytes # (Auto) 0.50 0.11-0.59 K/uL Eosinophils # (Auto) 0.25 0-0.5 K/uL Basophils # (Auto) 0.03 0-0.2 K/uL RDW Standard Deviation 49.9 36.4-46.3 fL RDW Coefficient of Variation 15.6 11.5-14.5 % Immature Granulocyte % (Auto) 0.7 % Immature Granulocyte # (Auto) 0.07 0.00-0.02 K/uL Sodium Level 137 136-145 mmol/L Potassium Level 3.9 3.5-5.1 mmol/L Chloride Level 104 98-107 mmol/L Carbon Dioxide Level 25 21-32 mmol/L Anion Gap 9.0 3-11 mmol/L Blood Urea Nitrogen 36 7-18 mg/dl Creatinine 7.48 0.60-1.40 mg/dl Est Creatinine Clear Calc Drug Dose 14.5 ml/min Estimated GFR () 8.7 Estimated GFR (Non- 7.5 BUN/Creatinine Ratio 4.8 10-20 Random Glucose 93 70-99 mg/dl Calcium Level 9.2 8.5-10.1 mg/dl Total Bilirubin 0.6 0.2-1 mg/dl Direct Bilirubin 0.1 0-0.2 mg/dl Aspartate Amino Transf (AST/SGOT) 15 15-37 U/L Alanine Aminotransferase (ALT/SGPT) 29 12-78 U/L Alkaline Phosphatase 90 45-117 U/L Total Protein 8.0 6.4-8.2 gm/dl Albumin 3.8 3.4-5.0 gm/dl Lipase 362 73-393 U/L Urine Color YELLOW Urine Appearance CLEAR CLEAR Urine pH 6.0 4.5-7.[address] [place] 1.041 1.000-1.030 Urine Protein 4+ NEG Urine Glucose (UA) 1+ NEG Urine Ketones NEG NEG Urine Occult Blood 1+ NEG Urine Nitrite NEG NEG Urine Bilirubin NEG NEG Urine Urobilinogen NEG NEG Urine Leukocyte Esterase NEG NEG Urine WBC (Auto) 1-5 0-5 /hpf Urine RBC (Auto) 0-4 0-4 /hpf Urine Hyaline Casts (Auto) 5-10 0-5 /lpf Urine Epithelial Cells (Auto) >30 0-5 /lpf Urine Bacteria (Auto) 1+ NEG Urine Renal Epithelial Cells 0-5 /lpf Microbiology Results 06/20/17 MRSA DNA Surveillance Screen - Final, Complete Specimen Positive for MRSA by DNA Probe 06/20/17 Urine Culture, Received Pending 06/20/17 Gram Stain, Received Pending 06/20/17 Bacterial Culture, Received Pending Assessment & Plan 06/21/17- s/p repair of incarcerated incisional hernia- my concern is the cloudy fluid encountered- culture pending. On atbx now- probably should remain in hospital 1-2 days to determine cult result and see how he does with dialysis. Dr Herman covering over weekend
[2017-06-21] MEDS: HYDROmorphone INJ 1 MG/ML SYR IV PRN ×6 (06:13→23:35)
[2017-06-21] MEDS: ONDANSETRON INJ 2 MG/ML 2 ML VIAL IV PRN ×2 (06:13→18:54)
[2017-06-21] MEDS: HYDROCODONE/ACETAMIN 5/325MG TAB PO PRN (08:13)
[2017-06-21] MEDS: CALCIUM ACETATE 667MG GELCAP PO SCH ×3 (08:13→17:45)
[2017-06-21] MEDS: DOCUSATE SODIUM/SENNA 50/8.6MG TAB PO SCH ×2 (08:14→21:35)
--- NOTE | 2017-06-21 08:47 | Family Medicine Progress Note ---
Progress Note Date of Service Jun 21, 2017. Subjective Pt evaluation today including: conversation w/ patient Found patient in bed this morning. Says he has ongoing post-op abdominal discomfort and that the pain medication doesn't seem to last very long for him. Denies any N/V. Hasn't had much to eat yet but tolerating liquids. No other acute patient concerns. Says he is on track for peritoneal dialysis today. Constitutional: No fever, No chills Respiratory: No cough Cardiovascular: No chest pain, No edema Abdomen: + pain, No nausea, No vomiting, No diarrhea Medications Current Inpatient Medications Medications (Trade) Dose Ordered Sig/[place]eland Route Start Time Stop Time Status Last Admin Dose Admin Hydromorphone HCl (Dilaudid Inj) 0.5 mg Q3H PRN IV 06/20/17 17:00 07/04/17 16:59 06/21/17 02:37 0.5 MG Hydromorphone HCl (Dilaudid Inj) 1 mg Q3H PRN IV 06/20/17 17:00 07/04/17 16:59 06/21/17 06:13 1 MG Acetaminophen/ Hydrocodone Bitart ([place] 5/325 Tab) 1 tab Q4 PRN PO 06/20/17 17:00 07/04/17 16:59 Acetaminophen/ Hydrocodone Bitart ([place] 5/325 Tab) 2 tab Q4 PRN PO 06/20/17 17:00 07/04/17 16:59 06/21/17 08:13 2 TAB Senna/Docusate Sodium (Senokot S Tab) 1 tab BID PO 06/20/17 21:00 07/20/17 20:59 06/21/17 08:14 1 TAB Promethazine HCl 25 mg/Sodium Chloride 51 ml @ 204 mls/hr Q6H PRN IV 06/20/17 17:00 07/20/17 16:59 Ondansetron HCl (Zofran Inj) 4 mg Q6H PRN IV 06/20/17 17:00 07/20/17 16:59 06/21/17 06:13 4 MG Aspirin (Ecotrin Tab) 81 mg HS PO 06/20/17 21:00 07/20/17 20:59 06/20/17 20:49 81 MG Calcium Acetate (Phoslo Cap) 667 mg TIDM PO 06/20/17 18:00 07/20/17 17:59 Tamsulosin HCl (Flomax Cap) 0.4 mg HS PO 06/20/17 21:00 07/20/17 20:59 06/20/17 20:49 0.4 MG Zolpidem Tartrate (Ambien Tab) 10 mg HS PRN PO 06/20/17 17:15 07/20/17 17:14 06/20/17 20:49 10 MG Promethazine HCl 12.5 mg/Sodium Chloride 50.5 ml @ 204 mls/hr Q6H PRN IV 06/20/17 18:00 07/20/17 17:59 Clindamycin Phosphate 600 mg/ Dextrose 54 ml @ 108 mls/hr Q8H IV 06/21/17 00:00 07/01/17 00:00 06/21/17 08:14 108 MLS/HR Objective Vital Signs Date Time Temp Pulse Resp B/P (MAP) Pulse Ox O2 Delivery O2 Flow Rate FiO2 06/21/17 07:43 37.2 80 16 142/90 (107) 97 Room Air 06/21/17 02:07 37.1 62 16 144/93 (110) 93 Room Air 06/21/17 01:00 Room Air 06/20/17 21:47 37.2 62 18 136/89 (105) 93 Room Air 06/20/17 20:21 37.1 82 18 141/94 (110) 91 Room Air 06/20/17 19:23 64 18 132/91 (105) 92 Room Air 06/20/17 18:52 36.6 78 18 152/88 (109) 95 Nasal Cannula 06/20/17 18:36 Room Air 3.0 06/20/17 18:25 95 Nasal Cannula 3.0 06/20/17 18:20 36.7 95 16 144/95 (111) 95 Nasal Cannula 3.0 06/20/17 18:05 36.6 82 20 131/87 97 Nasal Cannula 3 06/20/17 17:55 81 22 141/101 97 Nasal Cannula 3 06/20/17 17:50 85 22 146/99 98 Oxymask 3 06/20/17 17:45 82 22 134/100 99 Oxymask 3 06/20/17 17:35 89 22 144/106 99 Oxymask 3 06/20/17 17:25 82 22 144/100 99 Oxymask 5 06/20/17 17:16 36.4 92 22 138/99 98 Oxymask 5 06/20/17 15:44 36.6 79 16 163/115 (131) 95 Room Air 06/20/17 15:16 62 18 161/115 98 Room Air 06/20/17 15:02 73 26 117/119 98 Room Air 06/20/17 14:36 65 06/20/17 14:21 36.4 68 18 158/101 99 Room Air Physical Exam Notes: General Appearance: Awake, alert & oriented, appears a bit uncomfortable due to his abdomen, but in NAD. CV: +S1S2 RRR, no murmur. No peripheral edema. Pulm: Clear to auscultation throughout. Abdomen: +BS, soft, mildly distended, and tender throughout. Right periumbilical dressing in place, c/d/i, with drain within dressing. Peritoneal dialysis catheter in place as well. Extremities: No pedal edema or calf tenderness. Moving all extremities naturally and easily. Neuro: No gross neuro deficits. Lines: Peritoneal dialysis catheter. Surgical wound drain. Left PIV. Laboratory Results 06/20/17 14:34 Red Blood Count 5.21, Mean Corpuscular Volume 88.1, Mean Corpuscular Hemoglobin 30.1, Mean Corpuscular Hemoglobin Concent 34.2, Mean Platelet Volume 11.2, Neutrophils (%) (Auto) 81.2, Lymphocytes (%) (Auto) 10.7, Monocytes (%) (Auto) 4.7, Eosinophils (%) (Auto) 2.4, Basophils (%) (Auto) 0.3, Neutrophils # (Auto) 8.63, Lymphocytes # (Auto) 1.14, Monocytes # (Auto) 0.50, Eosinophils # (Auto) 0.25, Basophils # (Auto) 0.03 06/20/17 14:34 Test 06/20/17 14:34 06/20/17 20:24 White Blood Count 10.62 K/uL (4.8-10.8) Red Blood Count 5.21 M/uL (4.7-6.1) Hemoglobin 15.7 g/dL (14.0-18.0) Hematocrit 45.9 % (42-52) Mean Corpuscular Volume 88.1 fL (80-100) Mean Corpuscular Hemoglobin 30.1 pg (25-34) Mean Corpuscular Hemoglobin Concent 34.2 g/dl (32-36) Platelet Count 222 K/uL (130-400) Mean Platelet Volume 11.2 fL (7.4-10.4) Neutrophils (%) (Auto) 81.2 % Lymphocytes (%) (Auto) 10.7 % Monocytes (%) (Auto) 4.7 % Eosinophils (%) (Auto) 2.4 % Basophils (%) (Auto) 0.3 % Neutrophils # (Auto) 8.63 K/uL (1.4-6.5) Lymphocytes # (Auto) 1.14 K/uL (1.2-3.4) Monocytes # (Auto) 0.50 K/uL (0.11-0.59) Eosinophils # (Auto) 0.25 K/uL (0-0.5) Basophils # (Auto) 0.03 K/uL (0-0.2) RDW Standard Deviation 49.9 fL (36.4-46.3) RDW Coefficient of Variation 15.6 % (11.5-14.5) Immature Granulocyte % (Auto) 0.7 % Immature Granulocyte # (Auto) 0.07 K/uL (0.00-0.02) Anion Gap 9.0 mmol/L (3-11) Est Creatinine Clear Calc Drug Dose 14.5 ml/min Estimated GFR () 8.7 Estimated GFR (Non- 7.5 BUN/Creatinine Ratio 4.8 (10-20) Calcium Level 9.2 mg/dl (8.5-10.1) Total Bilirubin 0.6 mg/dl (0.2-1) Direct Bilirubin 0.1 mg/dl (0-0.2) Aspartate Amino Transf (AST/SGOT) 15 U/L (15-37) Alanine Aminotransferase (ALT/SGPT) 29 U/L (12-78) Alkaline Phosphatase 90 U/L (45-117) Total Protein 8.0 gm/dl (6.4-8.2) Albumin 3.8 gm/dl (3.4-5.0) Lipase 362 U/L (73-393) Urine Color YELLOW Urine Appearance CLEAR (CLEAR) Urine pH 6.0 (4.5-7.5) Urine Specific [place] 1.041 (1.000-1.030) Urine Protein 4+ (NEG) Urine Glucose (UA) 1+ (NEG) Urine Ketones NEG (NEG) Urine Occult Blood 1+ (NEG) Urine Nitrite NEG (NEG) Urine Bilirubin NEG (NEG) Urine Urobilinogen NEG (NEG) Urine Leukocyte Esterase NEG (NEG) Urine WBC (Auto) 1-5 /hpf (0-5) Urine RBC (Auto) 0-4 /hpf (0-4) Urine Hyaline Casts (Auto) 5-10 /lpf (0-5) Urine Epithelial Cells (Auto) >30 /lpf (0-5) Urine Bacteria (Auto) 1+ (NEG) Urine Renal Epithelial Cells /lpf (0-5) Date/Time Source Procedure Growth Status 06/20/17 20:59 Nasal MRSA DNA Surveillance Screen - Final Specimen Positive for MRSA by DNA Probe Complete Assessment and Plan 51 yo male admitted on [id number] for surgical correction of his incarcerated periumbilical hernia. PMH: ESRD, renal cell cancer, HTN, HLD, GERD, DM2, ALANIS, hypothyroidism, anemia, secondary hyperparathyroidism, ALBA. Incarcerated periumbilical hernia: General surgery is primary service. S/p open incarcerated periumbilical hernia repair without mesh on . Per discussion with surgeon, there was some cloudy peritoneal fluid during the procedure, so a culture was sent ( abd Cx no growth to date). Started on clindamycin on . Patient continues to note some post-operative discomfort in the area, not yet controlled with pain meds. He previously denied any symptoms of peritonitis. No present fevers, N/V/D, AMS. - Will wait for culture results to determine possible ongoing antibiotic need. - Changed to oxycodone PO prn and kept dilaudid IV prn. Phenergan prn for nausea. ESRD on peritoneal dialysis: Hx of FSGS and unilateral nephrectomy for RCC. Is on CCPD. Nephrology following, see their notes. Planned dialysis today. - UCx pending. Hypertension: Hx of same. Mildly elevated here in SBP 140's-150's. - For now will cover with hydralazine IV q4h prn SBP > 180 or DBP > 95. DM2: Hx of same. Not on any medication chronically for this. Monitoring blood sugars (BMP glc was 93). Surveillance: Nasal MRSA negative. Code status: Full code. Diet: Regular. DVT prophy: SCD's. PT/OT: Per general surgery. Disbo: Per general surgery. Resident Physician Supervision Note: I interviewed and examined the patient. Discussed with Dr. Melissa and agree with findings and plan as documented in the note. Any exceptions or clarifications are listed here: None Patient some some issues with pain control after his umbilical hernia was incarcerated was repaired he does usually participate in peritoneal dialysis and this is being overseen by nephrology. Surgery did raise a concern of some cloudy dialysis fluid in this culture is currently pending Vital signs show mildly elevated blood pressure is no history of this will add hydralazine as needed Patient is in mild distress his abdomen is tender although soft bowel sounds are present his peritoneal dialysis catheter site is slightly reddened but does not appear to be actively infected Patient is status post incarcerated umbilical hernia with repair continuing on peritoneal dialysis with nephrology oversight will amend his pain medications today try to provide better relief and provide hydralazine for blood pressure control Documented By: Gene Cedillo Resident Tracking Resident Involvement: Resident Care Provided Care Provided: Adult Hospital Medicine (inpatient)
--- NOTE | 2017-06-21 10:17 | Anesthesiology Progress Note ---
Anesthesia Post Op Note Date & Time Jun 21, 2017 at 10:16 Vital Signs Pain Intensity: 10.0 Vital Signs Past 12 Hours Date Time Temp Pulse Resp B/P (MAP) Pulse Ox O2 Delivery O2 Flow Rate FiO2 06/21/17 09:24 97 Room Air 06/21/17 08:00 Room Air 06/21/17 07:43 37.2 80 16 142/90 (107) 97 Room Air 06/21/17 02:07 37.1 62 16 144/93 (110) 93 Room Air 06/21/17 01:00 Room Air Notes Mental Status: alert / awake / arousable, participated in evaluation Pt Amnestic to Procedure: Yes Nausea / Vomiting: adequately controlled Pain: see Notes Airway Patency, RR, SpO2: stable & adequate BP & HR: stable & adequate Hydration State: stable & adequate Anesthetic Complications: no major complications apparent patient c/o 10/10 pain. Just received a break through dose of IV narcotic. Patient encouraged to verbalize to RN when pain not getting better so she can contact doctor for more/ different pain medications.
--- NOTE | 2017-06-21 10:45 | Nephrology Progress Note ---
Nephrology Progress Note Date of Service Jun 21, 2017. Chief Complaint Follow-up for end-stage renal disease on peritoneal dialysis. Patric Kaba was seen and examined this morning. Has been otherwise feeling well but has pain and discomfort at surgical incision site. Denies shortness of breath or chest pain. Blood pressure relatively well controlled. Review of Systems A complete review of systems was performed. Pertinent positives are noted above. All other systems are negative. Vital Signs Last 8 Hrs Date Time Temp Pulse Resp B/P (MAP) Pulse Ox O2 Delivery O2 Flow Rate FiO2 06/21/17 07:43 37.2 80 16 142/90 (107) 97 Room Air 06/21/17 02:07 37.1 62 16 144/93 (110) 93 Room Air 06/21/17 01:00 Room Air Last Recorded Weight Weight (Kilograms): 107.500 Physical Exam GENERAL: Middle-aged male, AAA x 3, in mild distress. NECK: Supple, no JVD. RESPIRATORY: clear to auscultation bilaterally, no wheezes or rales. CARDIOVASCULAR: S1, S2 normal, rate rhythm regular. ABDOMEN: slightly tender, obese, + BS, PD catheter site with no erythema, tenderness or drainage EXTREMITY: No lower extremity edema NEURO: speech fluent. PSYCHIATRY: Normal mood and judgment Family History Cancer Diabetes mellitus Heart disease Hypertension Kidney disease Kidney stones Social History Smoking Status: Never smoker Drug Use: none Marital Status: Occupation: employed Laboratory Results Past 24 Hours 06/20/17 14:34 Red Blood Count 5.21, Mean Corpuscular Volume 88.1, Mean Corpuscular Hemoglobin 30.1, Mean Corpuscular Hemoglobin Concent 34.2, Mean Platelet Volume 11.2, Neutrophils (%) (Auto) 81.2, Lymphocytes (%) (Auto) 10.7, Monocytes (%) (Auto) 4.7, Eosinophils (%) (Auto) 2.4, Basophils (%) (Auto) 0.3, Neutrophils # (Auto) 8.63, Lymphocytes # (Auto) 1.14, Monocytes # (Auto) 0.50, Eosinophils # (Auto) 0.25, Basophils # (Auto) 0.03 06/20/17 14:34 Test 06/20/17 14:34 06/20/17 20:24 White Blood Count 10.62 K/uL (4.8-10.8) Red Blood Count 5.21 M/uL (4.7-6.1) Hemoglobin 15.7 g/dL (14.0-18.0) Hematocrit 45.9 % (42-52) Mean Corpuscular Volume 88.1 fL (80-100) Mean Corpuscular Hemoglobin 30.1 pg (25-34) Mean Corpuscular Hemoglobin Concent 34.2 g/dl (32-36) Platelet Count 222 K/uL (130-400) Mean Platelet Volume 11.2 fL (7.4-10.4) Neutrophils (%) (Auto) 81.2 % Lymphocytes (%) (Auto) 10.7 % Monocytes (%) (Auto) 4.7 % Eosinophils (%) (Auto) 2.4 % Basophils (%) (Auto) 0.3 % Neutrophils # (Auto) 8.63 K/uL (1.4-6.5) Lymphocytes # (Auto) 1.14 K/uL (1.2-3.4) Monocytes # (Auto) 0.50 K/uL (0.11-0.59) Eosinophils # (Auto) 0.25 K/uL (0-0.5) Basophils # (Auto) 0.03 K/uL (0-0.2) RDW Standard Deviation 49.9 fL (36.4-46.3) RDW Coefficient of Variation 15.6 % (11.5-14.5) Immature Granulocyte % (Auto) 0.7 % Immature Granulocyte # (Auto) 0.07 K/uL (0.00-0.02) Anion Gap 9.0 mmol/L (3-11) Est Creatinine Clear Calc Drug Dose 14.5 ml/min Estimated GFR () 8.7 Estimated GFR (Non- 7.5 BUN/Creatinine Ratio 4.8 (10-20) Calcium Level 9.2 mg/dl (8.5-10.1) Total Bilirubin 0.6 mg/dl (0.2-1) Direct Bilirubin 0.1 mg/dl (0-0.2) Aspartate Amino Transf (AST/SGOT) 15 U/L (15-37) Alanine Aminotransferase (ALT/SGPT) 29 U/L (12-78) Alkaline Phosphatase 90 U/L (45-117) Total Protein 8.0 gm/dl (6.4-8.2) Albumin 3.8 gm/dl (3.4-5.0) Lipase 362 U/L (73-393) Urine Color YELLOW Urine Appearance CLEAR (CLEAR) Urine pH 6.0 (4.5-7.5) Urine Specific [place] 1.041 (1.000-1.030) Urine Protein 4+ (NEG) Urine Glucose (UA) 1+ (NEG) Urine Ketones NEG (NEG) Urine Occult Blood 1+ (NEG) Urine Nitrite NEG (NEG) Urine Bilirubin NEG (NEG) Urine Urobilinogen NEG (NEG) Urine Leukocyte Esterase NEG (NEG) Urine WBC (Auto) 1-5 /hpf (0-5) Urine RBC (Auto) 0-4 /hpf (0-4) Urine Hyaline Casts (Auto) 5-10 /lpf (0-5) Urine Epithelial Cells (Auto) >30 /lpf (0-5) Urine Bacteria (Auto) 1+ (NEG) Urine Renal Epithelial Cells /lpf (0-5) Date/Time Source Procedure Growth Status 06/20/17 20:59 Nasal MRSA DNA Surveillance Screen - Final Specimen Positive for MRSA by DNA Probe Complete Allergies Coded Allergies: Doxycycline (Verified Allergy, Severe, RASH, 05/06/17) phlebitis and pain with IV administration Penicillins (Verified Allergy, Mild, RASH, HIVES, ITCHING, 05/06/17) Medications Current Inpatient Medications Medications (Trade) Dose Ordered Sig/[place] Route Start Time Stop Time Status Last Admin Dose Admin Hydromorphone HCl (Dilaudid Inj) 0.5 mg Q3H PRN IV 06/20/17 17:00 07/04/17 16:59 06/21/17 02:37 0.5 MG Hydromorphone HCl (Dilaudid Inj) 1 mg Q3H PRN IV 06/20/17 17:00 07/04/17 16:59 06/21/17 06:13 1 MG Acetaminophen/ Hydrocodone Bitart ([place] 5/325 Tab) 1 tab Q4 PRN PO 06/20/17 17:00 07/04/17 16:59 Acetaminophen/ Hydrocodone Bitart ([place] 5/325 Tab) 2 tab Q4 PRN PO 06/20/17 17:00 07/04/17 16:59 06/21/17 08:13 2 TAB Senna/Docusate Sodium (Senokot S Tab) 1 tab BID PO 06/20/17 21:00 07/20/17 20:59 06/21/17 08:14 1 TAB Promethazine HCl 25 mg/Sodium Chloride 51 ml @ 204 mls/hr Q6H PRN IV 06/20/17 17:00 07/20/17 16:59 Ondansetron HCl (Zofran Inj) 4 mg Q6H PRN IV 06/20/17 17:00 07/20/17 16:59 06/21/17 06:13 4 MG Aspirin (Ecotrin Tab) 81 mg HS PO 06/20/17 21:00 07/20/17 20:59 06/20/17 20:49 81 MG Calcium Acetate (Phoslo Cap) 667 mg TIDM PO 06/20/17 18:00 07/20/17 17:59 Tamsulosin HCl (Flomax Cap) 0.4 mg HS PO 06/20/17 21:00 07/20/17 20:59 06/20/17 20:49 0.4 MG Zolpidem Tartrate (Ambien Tab) 10 mg HS PRN PO 06/20/17 17:15 07/20/17 17:14 06/20/17 20:49 10 MG Promethazine HCl 12.5 mg/Sodium Chloride 50.5 ml @ 204 mls/hr Q6H PRN IV 06/20/17 18:00 07/20/17 17:59 Clindamycin Phosphate 600 mg/ Dextrose 54 ml @ 108 mls/hr Q8H IV 06/21/17 00:00 07/01/17 00:00 06/21/17 08:14 108 MLS/HR Impression (1) ESRD on peritoneal dialysis (2) Incarcerated incisional hernia (3) Benign hypertension Mr. Sesar Hernandez is a 51 year-old male with obesity, nonalcoholic steatohepatitis, diabetes mellitus, hypothyroidism, hypertension, FSGS, arteriolosclerosis and CKD V following nephrectomy for a localized RCC. A buried PD catheter was placed initially on October 13, 2015. The catheter was externalized on June 14 2015. Unfortunately, catheter failed to drain and the patient developed a tunnel tract infection requiring removal of the catheter. Sesar was maintained on HD for a period of 3 months. He transitioned to PD in September of 2015. Recent complications include culture negative peritonitis in April 2017 in the setting of diverticulitis. This was treated with IP vanco/ gent. Sesar presented to the ER with abdominal pain related to an incarcerated incisional hernia. Surgery was completed without complications. PD catheter was untouched. No mesh required. Recommendations --Will resume PD tonight with low fill volume of 900 ml and 5 exchanges -- pt has been off of antihypertensives for last few months, lately BP has been high, has been under a lot of stresses and currently. Monitor BP for now, if remain elevated, will restart losartan. --avoid IV fluid --continue on phos binder Will follow
[2017-06-21] MEDS ORDERED: HydrALAZINE HCL 20 MG/ML VIAL IV PRN (11:45)
[2017-06-21] MEDS: OXYCODONE HCL IR 5 MG TAB (IMMEDIATE RELEASE) PO PRN ×3 (12:13→21:36)
[2017-06-21] MEDS ORDERED: OXYCODONE HCL IR 5 MG TAB (IMMEDIATE RELEASE) PO PRN (12:15)
[2017-06-21] MEDS: TAMSULOSIN HCL 0.4 MG CAP PO SCH (21:35)
[2017-06-21] MEDS: ASPIRIN 81 MG ECTAB PO SCH (21:36)
[2017-06-22] MEDS: OXYCODONE HCL IR 5 MG TAB (IMMEDIATE RELEASE) PO PRN ×2 (01:02→05:02)
[2017-06-22] MEDS: HYDROmorphone INJ 1 MG/ML SYR IV PRN ×2 (03:05→03:25)
[2017-06-22 07:08] VITALS: BP 153/91; PULSE 77; TEMP 37.2; O2SAT 95
[2017-06-22 08:05] VITALS: BP 153/91; PULSE 77; TEMP 37.2
[2017-06-22] MEDS: DOCUSATE SODIUM/SENNA 50/8.6MG TAB PO SCH ×2 (08:07→20:42)
[2017-06-22] MEDS: CLINDAMYCIN IV 600 MG in DEXTROSE 5% 50ML 50 ML IV SCH ×3 (08:12→23:54)
[2017-06-22 08:28] VITALS: BP 145/88; PULSE 94; TEMP 36.8; O2SAT 94
[2017-06-22] MEDS: CALCIUM ACETATE 667MG GELCAP PO SCH ×3 (08:30→17:45)
--- NOTE | 2017-06-22 08:39 | Family Medicine Progress Note ---
Progress Note Date of Service Jun 22, 2017. 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 Patient says his pain is much better controlled and he is going to try to avoid pain medication today. Denies any N/V and says daily dialysis is going well. Is passing gas but no BM since pre-surgery. No acute patient concerns. Says the last time he needed any antibiotics in his dialysate was about three weeks ago. Constitutional: No fever, No chills Respiratory: No cough, No shortness of breath Cardiovascular: No chest pain Abdomen: + pain, No nausea, No vomiting, No diarrhea Medications Current Inpatient Medications Medications (Trade) Dose Ordered Sig/Leland Route Start Time Stop Time Status Last Admin Dose Admin Hydromorphone HCl (Dilaudid Inj) 0.5 mg Q3H PRN IV 06/20/17 17:00 07/04/17 16:59 06/21/17 02:37 0.5 MG Hydromorphone HCl (Dilaudid Inj) 1 mg Q3H PRN IV 06/20/17 17:00 07/04/17 16:59 06/22/17 03:25 1 MG Senna/Docusate Sodium (Senokot S Tab) 1 tab BID PO 06/20/17 21:00 07/20/17 20:59 06/22/17 08:07 1 TAB Promethazine HCl 25 mg/Sodium Chloride 51 ml @ 204 mls/hr Q6H PRN IV 06/20/17 17:00 07/20/17 16:59 Ondansetron HCl (Zofran Inj) 4 mg Q6H PRN IV 06/20/17 17:00 07/20/17 16:59 06/21/17 18:54 4 MG Aspirin (Ecotrin Tab) 81 mg HS PO 06/20/17 21:00 07/20/17 20:59 06/21/17 21:36 81 MG Calcium Acetate (Phoslo Cap) 667 mg TIDM PO 06/20/17 18:00 07/20/17 17:59 Tamsulosin HCl (Flomax Cap) 0.4 mg HS PO 06/20/17 21:00 07/20/17 20:59 06/21/17 21:35 0.4 MG Zolpidem Tartrate (Ambien Tab) 10 mg HS PRN PO 06/20/17 17:15 07/20/17 17:14 06/20/17 20:49 10 MG Promethazine HCl 12.5 mg/Sodium Chloride 50.5 ml @ 204 mls/hr Q6H PRN IV 06/20/17 18:00 07/20/17 17:59 06/21/17 19:48 204 MLS/HR Clindamycin Phosphate 600 mg/ Dextrose 54 ml @ 108 mls/hr Q8H IV 06/21/17 00:00 07/01/17 00:00 06/22/17 08:12 108 MLS/HR Hydralazine HCl (HydrALAZINE INJ) 10 mg Q4H PRN IV 06/21/17 11:45 07/21/17 11:44 Oxycodone HCl (Roxicodone Immediate Rel Tab) 10 mg Q4 PRN PO 06/21/17 12:15 07/05/17 12:14 Oxycodone HCl (Roxicodone Immediate Rel Tab) 15 mg Q4 PRN PO 06/21/17 12:15 07/05/17 12:14 06/22/17 05:02 15 MG Objective Vital Signs Date Time Temp Pulse Resp B/P (MAP) Pulse Ox O2 Delivery O2 Flow Rate FiO2 06/22/17 08:28 36.8 94 18 145/88 (107) 94 Room Air 06/22/17 07:08 37.2 77 16 153/91 (111) 95 Room Air 06/21/17 23:48 Room Air 06/21/17 23:00 36.9 80 18 154/92 (112) 94 Room Air 06/21/17 17:47 36.8 73 148/94 (112) 73 06/21/17 15:50 Room Air 06/21/17 15:15 36.8 73 18 148/94 (112) 92 Room Air 06/21/17 11:55 37.0 74 17 152/94 (113) 95 Room Air 06/21/17 09:24 97 Room Air Physical Exam Notes: General Appearance: Awake, alert & oriented, appears a bit uncomfortable due to his abdomen, but in NAD. CV: +S1S2 RRR, no murmur. No peripheral edema. Pulm: Clear to auscultation throughout. Abdomen: +BS, soft, mildly distended, and tender just right-lateral to the dressing. Right periumbilical dressing in place, c/d/i, with drain within dressing. Peritoneal dialysis catheter in place as well. Extremities: No pedal edema or calf tenderness. Moving all extremities naturally and easily. Neuro: No gross neuro deficits. Lines: Peritoneal dialysis catheter. Surgical wound drain. Right arm PIV. Assessment and Plan 51 yo male admitted on [id number] for surgical correction of his incarcerated periumbilical hernia. PMH: ESRD, renal cell cancer, HTN, HLD, GERD, DM2, ALANIS, hypothyroidism, anemia, secondary hyperparathyroidism, ALBA. Incarcerated periumbilical hernia: General surgery is primary service. s/ p open incarcerated periumbilical hernia repair without mesh. peritoneal fluid culture with no growth to date. Started on clindamycin on . Improved post-operative pain, controlled with oxycodone prn and dilaudid prn. He previously denied any symptoms of peritonitis. No present fevers, N/V/D, AMS. - Provided some extra bowel regimen prn to help prevent constipation. No BM s/ p surgery yet. ESRD on peritoneal dialysis: Hx of FSGS and unilateral nephrectomy for RCC. Is on CCPD. Nephrology following, see their notes. Discussed patient with nephrology in person this morning as well. Ongoing daily dialysis. UCx noted only probable skin joan. Hypertension: Hx of same. Mildly elevated here in SBP 140's-150's. - For now will cover with hydralazine IV q4h prn SBP > 180 or DBP > 95. - Per nephro, consider restart losartan prn. DM2: Hx of same. Not on any medication chronically for this. Monitoring blood sugars (BMP glc was 93, 107). Surveillance: Nasal MRSA positive. HepBs negative. Code status: Full code. Diet: Regular. DVT prophy: SCD's. PT/OT: Per general surgery. Disbo: Per general surgery. Will sign off for now. Please contact us if any questions or if we can be of any further assistance. Resident Physician Supervision Note: I interviewed and examined the patient. Discussed with Dr. Melissa and agree with findings and plan as documented in the note. Any exceptions or clarifications are listed here: None We saw the patient in conjunction with Dr. Xander Barreto for nephrology patient states his abdominal pain is improved he is being followed by his primary service the surgery service for his incarcerated hernia repair and Dr. Schofield is following him for his peritoneal dialysis. 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
[2017-06-22 09:45] LABS: BASO % 0.2 %; BASO ABS # 0.02 K/uL (0-0.2); EOS % 5.6 %; EOS ABS # 0.52 K/uL (0-0.5); HEMATOCRIT 40.2 % (42-52); HEMOGLOBIN 12.8 g/dL (14.0-18.0); IG# 0.06 K/uL (0.00-0.02); LYMPH % 11.2 %; LYMPH ABS # 1.04 K/uL (1.2-3.4); MEAN CELL VOLUME 89.9 fL (80-100); MEAN CORPUSCULAR HEMOGLOBIN 28.6 pg (25-34); MEAN CORPUSCULAR HGB CONC 31.8 g/dl (32-36); MEAN PLATELET VOLUME 11.3 fL (7.4-10.4); MONO % 7.1 %; MONO ABS # 0.66 K/uL (0.11-0.59); NEUT % 75.3 %; NEUT ABS # 6.97 K/uL (1.4-6.5); PLATELET COUNT 203 K/uL (130-400); RED CELL DISTRIBUTION WIDTH CV 15.6 % (11.5-14.5); RED CELL DISTRIBUTION WIDTH SD 51.9 fL (36.4-46.3); WHITE BLOOD COUNT 9.27 K/uL (4.8-10.8)
[2017-06-22 10:23] LABS: CALCIUM 8.9 mg/dl (8.5-10.1); CREATININE 8.27 mg/dl (0.60-1.40); POTASSIUM 3.6 mmol/L (3.5-5.1)
[2017-06-22] MEDS ORDERED: FUROSEMIDE 20 MG TAB PO STA (12:16)
--- NOTE | 2017-06-22 12:25 | Nephrology Progress Note ---
Nephrology Progress Note Date of Service Jun 22, 2017. Chief Complaint ESRD on PD Subjective No acute events overnight. Sesar feels that he is recovering well. CCPD performed overnight without complications. 900 ml dwells tolerated well. Net UF 823 ml. Sesar notes that he is ~5 lbs above EDW. He has some swelling in his hands but not other evidence of fluid retention. Effluent is clear. Abdomen is appropriately tender following surgery. Ssear has not moved his bowels but he is passing flatus. Appetite is good. He notes some difficulty voiding his urine. He hopes to be discharged tomorrow. Review of Systems A complete review of systems was performed. Pertinent positives are noted above. All other systems are negative. Vital Signs Last 8 Hrs Date Time Temp Pulse Resp B/P (MAP) Pulse Ox O2 Delivery O2 Flow Rate FiO2 06/22/17 08:28 36.8 94 18 145/88 (107) 94 Room Air 06/22/17 08:05 37.2 77 18 153/91 (111) 06/22/17 08:00 Room Air 06/22/17 07:08 37.2 77 16 153/91 (111) 95 Room Air I & O 24-Hour Column 06/23/17 07:59 Intake Total 4500 ml Output Total 6146 ml Balance -1646 ml Last Recorded Weight Weight (Kilograms): 109.300 Physical Exam General Appearance: WD/WN, no apparent distress Head: normocephalic, atraumatic Eyes: normal inspection, sclerae normal ENT: normal ENT inspection, pharynx normal Neck: supple, no JVD Respiratory/Chest: lungs clear, no respiratory distress, no accessory muscle use Cardiovascular: regular rate, rhythm, no gallop Abdomen/GI: non tender, soft, + distended, + pertinent finding (surgical dressing CDI, PD catheter exit site clean without drainage or erythema) Extremities/Musculoskelatal: normal inspection, no pedal edema Neurologic/Psych: alert, normal mood/affect Family History Cancer Diabetes mellitus Heart disease Hypertension Kidney disease Kidney stones Social History Smoking Status: Never smoker Drug Use: none Marital Status: Occupation: employed Laboratory Results Past 24 Hours 06/22/17 08:56 Red Blood Count 4.47, Mean Corpuscular Volume 89.9, Mean Corpuscular Hemoglobin 28.6, Mean Corpuscular Hemoglobin Concent 31.8, Mean Platelet Volume 11.3, Neutrophils (%) (Auto) 75.3, Lymphocytes (%) (Auto) 11.2, Monocytes (%) (Auto) 7.1, Eosinophils (%) (Auto) 5.6, Basophils (%) (Auto) 0.2, Neutrophils # (Auto) 6.97, Lymphocytes # (Auto) 1.04, Monocytes # (Auto) 0.66, Eosinophils # (Auto) 0.52, Basophils # (Auto) 0.02 06/22/17 08:56 Test 06/21/17 18:17 06/22/17 08:56 Hepatitis B Surface Antigen NEG (NEG) Hepatitis B Surface Antibody NEG White Blood Count 9.27 K/uL (4.8-10.8) Red Blood Count 4.47 M/uL (4.7-6.1) Hemoglobin 12.8 g/dL (14.0-18.0) Hematocrit 40.2 % (42-52) Mean Corpuscular Volume 89.9 fL (80-100) Mean Corpuscular Hemoglobin 28.6 pg (25-34) Mean Corpuscular Hemoglobin Concent 31.8 g/dl (32-36) Platelet Count 203 K/uL (130-400) Mean Platelet Volume 11.3 fL (7.4-10.4) Neutrophils (%) (Auto) 75.3 % Lymphocytes (%) (Auto) 11.2 % Monocytes (%) (Auto) 7.1 % Eosinophils (%) (Auto) 5.6 % Basophils (%) (Auto) 0.2 % Neutrophils # (Auto) 6.97 K/uL (1.4-6.5) Lymphocytes # (Auto) 1.04 K/uL (1.2-3.4) Monocytes # (Auto) 0.66 K/uL (0.11-0.59) Eosinophils # (Auto) 0.52 K/uL (0-0.5) Basophils # (Auto) 0.02 K/uL (0-0.2) RDW Standard Deviation 51.9 fL (36.4-46.3) RDW Coefficient of Variation 15.6 % (11.5-14.5) Immature Granulocyte % (Auto) 0.6 % Immature Granulocyte # (Auto) 0.06 K/uL (0.00-0.02) Anion Gap 11.0 mmol/L (3-11) Est Creatinine Clear Calc Drug Dose 13.2 ml/min Estimated GFR () 7.7 Estimated GFR (Non- 6.7 BUN/Creatinine Ratio 5.0 (10-20) Calcium Level 8.9 mg/dl (8.5-10.1) Allergies Coded Allergies: Doxycycline (Verified Allergy, Severe, RASH, 05/06/17) phlebitis and pain with IV administration Penicillins (Verified Allergy, Mild, RASH, HIVES, ITCHING, 05/06/17) Medications Current Inpatient Medications Medications (Trade) Dose Ordered Sig/Leland Route Start Time Stop Time Status Last Admin Dose Admin Hydromorphone HCl (Dilaudid Inj) 0.5 mg Q3H PRN IV 06/20/17 17:00 07/04/17 16:59 06/21/17 02:37 0.5 MG Hydromorphone HCl (Dilaudid Inj) 1 mg Q3H PRN IV 06/20/17 17:00 07/04/17 16:59 06/22/17 03:25 1 MG Senna/Docusate Sodium (Senokot S Tab) 1 tab BID PO 06/20/17 21:00 07/20/17 20:59 06/22/17 08:07 1 TAB Promethazine HCl 25 mg/Sodium Chloride 51 ml @ 204 mls/hr Q6H PRN IV 06/20/17 17:00 07/20/17 16:59 Ondansetron HCl (Zofran Inj) 4 mg Q6H PRN IV 06/20/17 17:00 07/20/17 16:59 06/21/17 18:54 4 MG Aspirin (Ecotrin Tab) 81 mg HS PO 06/20/17 21:00 07/20/17 20:59 06/21/17 21:36 81 MG Calcium Acetate (Phoslo Cap) 667 mg TIDM PO 06/20/17 18:00 07/20/17 17:59 Tamsulosin HCl (Flomax Cap) 0.4 mg HS PO 06/20/17 21:00 07/20/17 20:59 06/21/17 21:35 0.4 MG Zolpidem Tartrate (Ambien Tab) 10 mg HS PRN PO 06/20/17 17:15 07/20/17 17:14 06/20/17 20:49 10 MG Promethazine HCl 12.5 mg/Sodium Chloride 50.5 ml @ 204 mls/hr Q6H PRN IV 06/20/17 18:00 07/20/17 17:59 06/21/17 19:48 204 MLS/HR Clindamycin Phosphate 600 mg/ Dextrose 54 ml @ 108 mls/hr Q8H IV 06/21/17 00:00 07/01/17 00:00 06/22/17 08:12 108 MLS/HR Hydralazine HCl (HydrALAZINE INJ) 10 mg Q4H PRN IV 06/21/17 11:45 07/21/17 11:44 Oxycodone HCl (Roxicodone Immediate Rel Tab) 10 mg Q4 PRN PO 06/21/17 12:15 07/05/17 12:14 Oxycodone HCl (Roxicodone Immediate Rel Tab) 15 mg Q4 PRN PO 06/21/17 12:15 07/05/17 12:14 06/22/17 05:02 15 MG Furosemide (Lasix Tab) 20 mg NOW STAT PO 06/22/17 12:16 06/22/17 12:17 UNV Impression (1) ESRD on peritoneal dialysis (2) Incarcerated incisional hernia (3) Benign hypertension Mr. Sesar Hernandez is a 51 year-old male with obesity, nonalcoholic steatohepatitis, diabetes mellitus, hypothyroidism, hypertension, FSGS, arteriolosclerosis and CKD V following nephrectomy for a localized RCC. A buried PD catheter was placed initially on October 13, 2015. The catheter was externalized on June 14 2015. Unfortunately, catheter failed to drain and the patient developed a tunnel tract infection requiring removal of the catheter. Sesar was maintained on HD for a period of 3 months. He transitioned to PD in September of 2015. Recent complications include culture negative peritonitis in April 2017 in the setting of diverticulitis. This was treated with IP vanco/ gent. Sesar presented to the ER with abdominal pain related to an incarcerated incisional hernia. Surgery was completed without complications. PD catheter was untouched. No mesh required. He is recovering appropriately. Recommendations -- CCPD orders have been entered into the chart and communicated to the dialysis nurse -- Catheter exit site care per protocol: topical gent gtts -- Increase UF overnight for fluid gains -- Increase drain volume to goal as tolerated -- Metabolic profile acceptable -- No need for BECKIE at this time -- Renal diet with phosphate binders QAC -- Maintained on Flomax for BPH which may be increased as needed. I suspect that some urinary symptoms may be related to anesthesia -- No clinical evidence of peritonitis, gram stain negative -- Medications are appropriately dosed for renal function
--- NOTE | 2017-06-22 12:42 | Surgery Progress Note ---
Surgery Progress Note Date of Service Jun 22, 2017. Subjective + feeling well Objective Vital Signs: Date Time Temp Pulse Resp B/P (MAP) Pulse Ox O2 Delivery O2 Flow Rate FiO2 06/22/17 08:28 36.8 94 18 145/88 (107) 94 Room Air 06/22/17 08:05 37.2 77 18 153/91 (111) 06/22/17 08:00 Room Air 06/22/17 07:08 37.2 77 16 153/91 (111) 95 Room Air 06/21/17 23:48 Room Air 06/21/17 23:00 36.9 80 18 154/92 (112) 94 Room Air 06/21/17 17:47 36.8 73 148/94 (112) 73 06/21/17 15:50 Room Air 06/21/17 15:15 36.8 73 18 148/94 (112) 92 Room Air General Appearance: WD/WN, no apparent distress Head: normocephalic Neck: supple, no JVD Respiratory/Chest: chest non-tender, lungs clear Cardiovascular: regular rate, rhythm, no edema, no gallop, no JVD, no murmur Abdomen: normal bowel sounds, non tender, non distended, soft Incision(s): clean, dry, intact Extremities: normal range of motion, non-tender Laboratory Results: Results Past 24 Hours Test 06/21/17 18:17 06/22/17 08:56 Range/Units Hepatitis B Surface Antigen NEG NEG Hepatitis B Surface Antibody NEG White Blood Count 9.27 4.8-10.8 K/uL Red Blood Count 4.47 4.7-6.1 M/uL Hemoglobin 12.8 14.0-18.0 g/dL Hematocrit 40.2 42-52 % Mean Corpuscular Volume 89.9 80-100 fL Mean Corpuscular Hemoglobin 28.6 25-34 pg Mean Corpuscular Hemoglobin Concent 31.8 32-36 g/dl Platelet Count 203 130-400 K/uL Mean Platelet Volume 11.3 7.4-10.4 fL Neutrophils (%) (Auto) 75.3 % Lymphocytes (%) (Auto) 11.2 % Monocytes (%) (Auto) 7.1 % Eosinophils (%) (Auto) 5.6 % Basophils (%) (Auto) 0.2 % Neutrophils # (Auto) 6.97 1.4-6.5 K/uL Lymphocytes # (Auto) 1.04 1.2-3.4 K/uL Monocytes # (Auto) 0.66 0.11-0.59 K/uL Eosinophils # (Auto) 0.52 0-0.5 K/uL Basophils # (Auto) 0.02 0-0.2 K/uL RDW Standard Deviation 51.9 36.4-46.3 fL RDW Coefficient of Variation 15.6 11.5-14.5 % Immature Granulocyte % (Auto) 0.6 % Immature Granulocyte # (Auto) 0.06 0.00-0.02 K/uL Sodium Level 134 136-145 mmol/L Potassium Level 3.6 3.5-5.1 mmol/L Chloride Level 101 98-107 mmol/L Carbon Dioxide Level 22 21-32 mmol/L Anion Gap 11.0 3-11 mmol/L Blood Urea Nitrogen 42 7-18 mg/dl Creatinine 8.27 0.60-1.40 mg/dl Est Creatinine Clear Calc Drug Dose 13.2 ml/min Estimated GFR () 7.7 Estimated GFR (Non- 6.7 BUN/Creatinine Ratio 5.0 10-20 Random Glucose 107 70-99 mg/dl Calcium Level 8.9 8.5-10.1 mg/dl Assessment & Plan pt is doing better, he tolearated diet, no BM yet dulcolax 10 po x1 will F/U full liquids
[2017-06-22] MEDS ORDERED: BISACODYL 5 MG TABEC PO ONE (12:45)
[2017-06-22] MEDS: GENTAMICIN SULFATE 0.3% OP SOLN 5 ML BTL TOP SCH (13:23)
[2017-06-22] MEDS ORDERED: MAGNESIUM HYDROXIDE SUSP 30 ML UDC PO PRN (14:00)
[2017-06-22] MEDS: ONDANSETRON INJ 2 MG/ML 2 ML VIAL IV PRN (14:26)
[2017-06-22 15:28] VITALS: BP 158/83; PULSE 76; TEMP 37.4; O2SAT 96
[2017-06-22 17:00] VITALS: BP 158/83; PULSE 76; TEMP 37.4
[2017-06-22] MEDS: ASPIRIN 81 MG ECTAB PO SCH (20:42)
[2017-06-22] MEDS: TAMSULOSIN HCL 0.4 MG CAP PO SCH (20:42)
[2017-06-22 22:55] VITALS: BP 131/85; PULSE 76; TEMP 37; O2SAT 94
[2017-06-23 07:26] VITALS: BP 139/83; PULSE 75; TEMP 36.8; O2SAT 94
[2017-06-23] MEDS: CALCIUM ACETATE 667MG GELCAP PO SCH (08:30)
[2017-06-23] MEDS ORDERED: POLYETHYLENE (MIRALAX) 17 GM PACK ONE (08:45)
[2017-06-23] MEDS: CLINDAMYCIN IV 600 MG in DEXTROSE 5% 50ML 50 ML IV SCH (08:47)
[2017-06-23] MEDS: DOCUSATE SODIUM/SENNA 50/8.6MG TAB PO SCH (08:47)
[2017-06-23] MEDS: GENTAMICIN SULFATE 0.3% OP SOLN 5 ML BTL TOP SCH (08:47)
[2017-06-23] MEDS ORDERED: POLYETHYLENE (MIRALAX) 17 GM PACK PO ONE (09:00)
--- NOTE | 2017-06-23 10:46 | Surgery Progress Note ---
Surgery Progress Note Date of Service Jun 23, 2017. Subjective Post OP Day: 3 + feeling well pt is doing fine, no nausea, no vomiting, he tolerated diet, Objective Vital Signs: Date Time Temp Pulse Resp B/P (MAP) Pulse Ox O2 Delivery O2 Flow Rate FiO2 06/23/17 10:02 Room Air 06/23/17 07:26 36.8 75 17 139/83 (101) 94 Room Air 06/23/17 00:05 Room Air 06/22/17 22:55 37.0 76 18 131/85 (100) 94 Room Air 06/22/17 15:50 Room Air 06/22/17 15:28 37.4 76 16 158/83 (108) 96 General Appearance: WD/WN, no apparent distress Head: normocephalic Neck: supple, no JVD Respiratory/Chest: chest non-tender, lungs clear Cardiovascular: regular rate, rhythm, no edema, no gallop, no JVD Abdomen: normal bowel sounds, non tender, non distended, soft, no organomegaly Incision(s): clean, dry, intact Extremities: normal range of motion, non-tender, normal inspection Assessment & Plan pt is doing better, he tolearated diet, no BM yet dulcolax 10 po x1 will F/U 06/23/2017 doing fine I removed incision packing pt can be discharged today, F/U Dr. davis in 1 week, pt is doing better, he tolearated diet, no BM yet dulcolax 10 po x1 will F/U
[2017-06-23 10:47] VITALS: BP 139/83; PULSE 75; TEMP 36.8; O2SAT 94
[2017-06-23 11:10] VITALS: BP 139/83; PULSE 75; TEMP 36.8
[2017-06-23] MEDS ORDERED: HYDR-5688 PO ×2 (11:13)
--- NOTE | 2017-06-23 11:26 | Nephrology Progress Note ---
Nephrology Progress Note Date of Service Jun 23, 2017. Chief Complaint ESRD on PD Subjective No acute events overnight. Sesar was seen and evaluated this morning. Discharge plan discussed with Dr. Herman. Sesar tolerated HD well overnight. He reports appropriate post operative pain with good pain control. No fevers or chills. Tolerated PD well overnight. No complications with treatment. Net UF 3+ L. Effluent reported as clear. Review of Systems A complete review of systems was performed. Pertinent positives are noted above. All other systems are negative. Vital Signs Last 8 Hrs Date Time Temp Pulse Resp B/P (MAP) Pulse Ox O2 Delivery O2 Flow Rate FiO2 06/23/17 10:47 36.8 75 17 94 Room Air 06/23/17 10:02 Room Air 06/23/17 07:26 36.8 75 17 139/83 (101) 94 Room Air Last Recorded Weight Weight (Kilograms): 105.400 Physical Exam General Appearance: no apparent distress, + obese Head: normocephalic, atraumatic Eyes: normal inspection, sclerae normal ENT: normal ENT inspection, pharynx normal Neck: supple, no JVD Respiratory/Chest: lungs clear, no respiratory distress, no accessory muscle use Cardiovascular: regular rate, rhythm, no gallop Abdomen/GI: non tender, soft, + pertinent finding (PD catheter exit site clean) Extremities/Musculoskelatal: normal inspection, no pedal edema Neurologic/Psych: alert, normal mood/affect Family History Cancer Diabetes mellitus Heart disease Hypertension Kidney disease Kidney stones Social History Smoking Status: Never smoker Drug Use: none Marital Status: Occupation: employed Allergies Coded Allergies: Doxycycline (Verified Allergy, Severe, RASH, 05/06/17) phlebitis and pain with IV administration Penicillins (Verified Allergy, Mild, RASH, HIVES, ITCHING, 05/06/17) Medications Current Inpatient Medications Medications (Trade) Dose Ordered Sig/Leland Route Start Time Stop Time Status Last Admin Dose Admin Hydromorphone HCl (Dilaudid Inj) 0.5 mg Q3H PRN IV 06/20/17 17:00 07/04/17 16:59 06/21/17 02:37 0.5 MG Hydromorphone HCl (Dilaudid Inj) 1 mg Q3H PRN IV 06/20/17 17:00 07/04/17 16:59 06/22/17 03:25 1 MG Senna/Docusate Sodium (Senokot S Tab) 1 tab BID PO 06/20/17 21:00 07/20/17 20:59 06/23/17 08:47 1 TAB Promethazine HCl 25 mg/Sodium Chloride 51 ml @ 204 mls/hr Q6H PRN IV 06/20/17 17:00 07/20/17 16:59 Ondansetron HCl (Zofran Inj) 4 mg Q6H PRN IV 06/20/17 17:00 07/20/17 16:59 06/22/17 14:26 4 MG Aspirin (Ecotrin Tab) 81 mg HS PO 06/20/17 21:00 07/20/17 20:59 06/22/17 20:42 81 MG Calcium Acetate (Phoslo Cap) 667 mg TIDM PO 06/20/17 18:00 07/20/17 17:59 Tamsulosin HCl (Flomax Cap) 0.4 mg HS PO 06/20/17 21:00 07/20/17 20:59 06/22/17 20:42 0.4 MG Zolpidem Tartrate (Ambien Tab) 10 mg HS PRN PO 06/20/17 17:15 07/20/17 17:14 06/20/17 20:49 10 MG Promethazine HCl 12.5 mg/Sodium Chloride 50.5 ml @ 204 mls/hr Q6H PRN IV 06/20/17 18:00 07/20/17 17:59 06/21/17 19:48 204 MLS/HR Clindamycin Phosphate 600 mg/ Dextrose 54 ml @ 108 mls/hr Q8H IV 06/21/17 00:00 07/01/17 00:00 06/23/17 08:47 108 MLS/HR Hydralazine HCl (HydrALAZINE INJ) 10 mg Q4H PRN IV 06/21/17 11:45 07/21/17 11:44 Oxycodone HCl (Roxicodone Immediate Rel Tab) 10 mg Q4 PRN PO 06/21/17 12:15 07/05/17 12:14 06/22/17 14:21 10 MG Oxycodone HCl (Roxicodone Immediate Rel Tab) 15 mg Q4 PRN PO 06/21/17 12:15 07/05/17 12:14 06/22/17 05:02 15 MG Gentamicin Sulfate (Gentamicin 0.3% Oph Soln) 3 drops DAILY TOP 06/22/17 13:00 07/02/17 12:59 06/23/17 08:47 3 DROPS Magnesium Hydroxide (Milk Of Magnesia Susp) 30 ml Q6H PRN PO 06/22/17 14:00 07/22/17 13:59 06/22/17 15:45 30 ML Impression (1) ESRD on peritoneal dialysis (2) Incarcerated incisional hernia (3) Benign hypertension Mr. Sesar Hernandez is a 51 year-old male with obesity, nonalcoholic steatohepatitis, diabetes mellitus, hypothyroidism, hypertension, FSGS, arteriolosclerosis and CKD V with history of uninephrectomy for a localized RCC. A buried PD catheter was placed initially on October 13, 2015. The catheter was externalized on June 14 2015. Unfortunately, catheter failed to drain and the patient developed a tunnel tract infection requiring removal of the catheter. Sesar was maintained on HD for a period of 3 months. He transitioned to PD in September of 2015. Recent complications include culture negative peritonitis in April 2017 in the setting of diverticulitis. This was treated with IP vanco/ gent. Sesar presented to the ER with abdominal pain related to an incarcerated incisional hernia. Surgery was completed without complications. PD catheter was untouched. No mesh required. He is recovering appropriately. Plan for discharge home today. Tolerated PD overnight with 4.5% dextrose 1.5 L dwell and net UF of 3+ liters. Patient now at EDW. Recommendations -- Resume home PD Rx tonight -- Catheter exit site care per protocol: topical gent gtts -- EDW unchanged -- Follow up in the dialysis clinic arranged -- Metabolic profile acceptable -- No need for BECKIE at this time -- Renal diet with phosphate binders QAC -- Maintained on Flomax for BPH, symptoms improving -- No clinical evidence of peritonitis, gram stain negative -- Medications are appropriately dosed for renal function
--- NOTE | 2017-06-25 09:29 | DISCHARGE SUMMARY ---
PRIMARY DISCHARGE DIAGNOSIS: Incarcerated incisional hernia. SECONDARY DISCHARGE DIAGNOSES: 1. End-stage renal disease. 2. Type 2 diabetes. 3. Hypertension. PROCEDURE PERFORMED: Incarcerated incisional hernia repair. HOSPITAL COURSE: The patient is a 51-year-old male with an incisional periumbilical hernia. It was increasingly bothersome over the past week and became severely painful and more bulging on the day of admission. He had an outpatient CT, which showed incarcerated hernia. He was taken to the operating room that afternoon for an open primary repair. The procedure was well tolerated. He was returned to the surgical floor. Nephrology and the hospitalists were consulted routinely. He did well postoperatively. He was able to tolerate an advancing diet. He had a peritoneal dialysis overnight. He did have some turbid peritoneal fluid at the time of surgery. Cultures were negative. On postoperative day #3, Chelo drain was removed from the wound. He was stable for discharge. DISCHARGE INSTRUCTIONS: Discharge home. Follow up with Dr. Christensen within 1 week. DISCHARGE MEDICATIONS: [place] 1-2 tablets every 6 hours as needed for pain. Resume home medications. Aspirin 81 mg daily, PhosLo 667 mg daily, vitamin D 50,000 units weekly, Zofran 8 mg as needed, Flomax 0.4 mg and Ambien 10 mg at bedtime as needed.
== END 2017-06-23 11:42 | disposition home or self-care (01) | DRG 353 ==
LOC: C.EDB 14:19 → UNDOADMIN 17:03 → C.MSW 17:03 → ENRESERV 17:57
PROVIDERS: ADMIT Surgery; ATTEND Surgery
PROC: 0WQF0ZZ Repair Abdominal Wall, Open Approach (ICD-10-PCS; principal; 2017-06-20 13:00)
DX: K43.0 Incisional hernia with obstruction, without gangrene (principal); N18.6 End stage renal disease; N25.81 Secondary hyperparathyroidism of renal origin; I12.0 Hypertensive chronic kidney disease with stage 5 chronic kidney disease or end stage renal disease; E11.9 Type 2 diabetes mellitus without complications; E03.9 Hypothyroidism, unspecified; Z99.2 Dependence on renal dialysis; Z79.82 Long term (current) use of aspirin; Z88.0 Allergy status to penicillin; Z80.9 Family history of malignant neoplasm, unspecified; Z83.3 Family history of diabetes mellitus; Z84.1 Family history of disorders of kidney and ureter; Z82.49 Family history of ischemic heart disease and other diseases of the circulatory system

== ENCOUNTER → 2017-06-20 | Outpatient (CLI) | payer OTHER ==
[~2017-06-20] MED LIST changes: +ASPI-435 PO; +BUPIVACAINE 0.5 % 5 MG/1 ML MPF 30ML VIAL ONE; +CALC667C PO; +CEFAZOLIN SOD 1 GM VIAL ONE; +CPR500 PO; +DEXAMETHASONE SOD INJ 4 MG/ML VIAL ONE; +ERGO500011 PO; +ESMOLOL HCL 10 MG/ML 10 ML VIAL ONE; +FENTANYL CITRATE INJ 50 MCG/1 ML 2 ML VIAL ONE; +FLM4 PO; +GLYCOPYRROLATE INJ 0.2 MG/ML VIAL ONE; +HYDR-5688 PO; +LIDOCAINE HCL 2% 2 ML VIAL (20MG/ML) ONE; -LSN5 PO; +MIDAZOLAM HCL 1 MG/ML 2ML VIAL ONE; +MTR500 PO; +NEOSTIGMINE METHYLSULFATE 5 MG/5 ML SYR ONE; +ONDA8TAB62 SL; +ONDANSETRON INJ 2 MG/ML 2 ML VIAL ONE; +OPTIRAY 320 IV PRN; +PHENYLEPHRINE HCL INJ 10 MG/ML VIAL ONE; +PHS667 PO; +PROPOFOL IV EMULSION 10 MG/ML 20 ML VIAL IV ONE; +ROCURONIUM BROMIDE 10 MG/ML 5 ML VIAL IV ONE; +ULT50X PO; +ZFRODT/8 SL; +ZOLP10TA PO; +ZOLP10TA6 PO
[2017-06-20 13:09] LABS: BLOOD UREA NITROGEN 36 mg/dl (7-18); CALCIUM 9.3 mg/dl (8.5-10.1); CARBON DIOXIDE 25 mmol/L (21-32); CREATININE 7.27 mg/dl (0.60-1.40); GLUCOSE 122 mg/dl (70-99); POTASSIUM 3.6 mmol/L (3.5-5.1); SODIUM 138 mmol/L (136-145)
--- NOTE | 2017-06-20 14:06 | DIAGNOSTIC IMAGING REPORT ---
CT ABD/PELVIS IV CONTRAST ONLY CLINICAL HISTORY: ABDOMINAL PAIN. R/O STRANGULATED HERNIA COMPARISON STUDY: May 06, 2017 TECHNIQUE: Following the IV administration of 93 mL of Optiray-320, CT scan of the abdomen and pelvis was performed from the lung bases to the proximal femurs. Images are reviewed in the axial, sagittal, and coronal planes. IV contrast was administered without complication. A dose lowering technique was utilized adhering to the principles of ALARA. CT DOSE: 938.68 mGy.cm FINDINGS: Lower chest: The heart is normal in size and configuration, without pericardial effusion. The lung bases and pleural spaces are clear. Liver: There is hepatic steatosis. No focal hepatic masses are visualized. Gallbladder: Unremarkable. Spleen: The spleen is mildly enlarged measuring 14.2 cm Pancreas: Unremarkable. Adrenal glands: Unremarkable. Kidneys: The left kidney is surgically absent. There is a 9 mm lower pole right renal hypodense lesion, likely representing a cyst. Bowel: There is a ventral hernia containing a knuckle of small bowel. The bowel loop within the hernia sac is fluid-filled and there is a small amount of fluid adjacent to the bowel loop. The bowel loop proximal to the hernia sac is fluid-filled and at the upper limits of normal in size measuring 28 mm. The more proximal small bowel is not significantly dilated and a high-grade bowel obstruction is not felt to be present. The appendix is normal. There is colonic diverticulosis. There is very minimal peridiverticular inflammatory change in the sigmoid, improved compared the preceding study. There are no fluid collections to indicate an abscess. Peritoneum: There is no free air. There is no free pelvic ascites. There is an indwelling peritoneal dialysis catheter. Vasculature: The abdominal aorta is normal in course and caliber. Adenopathy: Left iliac chain lymph nodes are the upper limits of normal in size Pelvic viscera: The prostate measures 4.5 cm Skeletal structures: No destructive osseous lesions are seen. IMPRESSION: 1. Hepatic steatosis and mild splenomegaly 2. Improving mild sigmoid diverticulitis 3. Surgically absent left kidney 4. Bowel containing supraumbilical ventral hernia. Although there are no findings to indicate a high-grade bowel obstruction, the bowel within the hernia sac is fluid-filled with surrounding fluid. The small bowel loop immediately proximal to the hernia is also fluid-filled and at the upper limits of normal in diameter. The more proximal small bowel is not dilated. A very early or low-grade obstruction at the hernia site cannot be excluded. 5. Normal appendix Electronically signed by: Blayne Auguste M.D. 06/20/2017 2:04 PM Dictated Date/Time: 06/20/2017 1:52 PM
== END | disposition home or self-care (01) ==
LOC: C.CTS 11:31
PROVIDERS: ATTEND Family Medicine
DX: R10.9 Unspecified abdominal pain (principal); K76.0 Fatty (change of) liver, not elsewhere classified; Z90.5 Acquired absence of kidney; K43.9 Ventral hernia without obstruction or gangrene

== ENCOUNTER → 2017-06-28 | Outpatient (CLI) | payer OTHER ==
[~2017-06-28] MED LIST changes: +CALC667C PO; -CPR500 PO; +ERGO500011 PO; -ERGO500037 PO; +FLM4 PO; +HYDR-5688 PO; -MTR500 PO; -ONDA8TAB62 SL; -PHS667 PO; -TAMS0.4C38 PO; -ULT50X PO; +ZFRODT/8 SL; -ZOLP10TA PO; +ZOLP10TA6 PO
--- NOTE | 2017-06-28 13:47 | DIAGNOSTIC IMAGING REPORT ---
(CHEST) THORAX WITHOUT CLINICAL HISTORY: 51 years-old Male presenting with PULMONARY NODULE. TECHNIQUE: Multidetector CT imaging of the chest was performed without the use of intravenous contrast. IV contrast: None. A dose lowering technique was used consistent with the principles of ALARA (as low as reasonably achievable). COMPARISON: 06/12/2016. CT DOSE (mGy.cm): The estimated cumulative dose is 714.79 mGycm. FINDINGS: Auto Wash Buffer topogram: Unremarkable. On soft tissue windows, 11 mm nodule in the posterior left thyroid lobe. No axillary, supraclavicular, or mediastinal lymphadenopathy. Evaluation of the yelena limited without intravenous contrast. Few calcified mediastinal lymph nodes noted as well as calcified left hilar lymph nodes. Normal aorta. Normal heart size. Coronary artery calcification. No pericardial or pleural effusion. Hepatic steatosis. On lung windows, punctate solid or subsolid nodule in the periphery of the right middle lobe (series 4 image 164). Calcified granulomata noted in the left upper lobe. No other focal nodule. Airways patent. On bone windows, normal osseous structures. IMPRESSION: 1. Punctate right middle lobe nodule. No other nodule that would warrant follow-up. 2. Multiple calcified granulomata as well as calcified hilar and mediastinal lymph nodes, which suggests prior granulomatous infection. No acute intrathoracic pathology. 3. 11 mm left thyroid lobe nodule. 4. Hepatic steatosis Electronically signed by: Ritesh Hutchison M.D. 06/28/2017 1:46 PM Dictated Date/Time: 06/28/2017 1:41 PM
== END | disposition home or self-care (01) ==
LOC: C.CTS 13:21
PROVIDERS: ATTEND Internal Medicine
DX: R91.1 Solitary pulmonary nodule (principal); R91.8 Other nonspecific abnormal finding of lung field; E04.1 Nontoxic single thyroid nodule; K76.0 Fatty (change of) liver, not elsewhere classified

== ENCOUNTER → 2017-10-07 | Outpatient (CLI) | payer OTHER ==
[~2017-10-07] MED LIST changes: +ACET-1256 PO; +AMIT10TA6 PO; +CLBCR60 TOP; +CPR500 PO; -HYDR-5688 PO; +LISI-730 PO; +METR500T PO; +NRV/5; +PANT1TAB4 PO; -ZFRODT/8 SL
--- NOTE | 2017-11-01 08:35 | CODING QUERY NO DIAGNOSIS ---
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 Please assist us with providing a diagnosis/symptom for the test(s) below: A diagnosis/symptom was not documented on your Order. A valid diagnosis/symptom is required to bill all insurances. Please remember that we are unable to code a diagnosis of rule out, probable, possible, questionable, or suspected. Tests that require a diagnosis: DOS 10/07/17 (Per Patient Access, no order in [employer]) * Vancomycin Trough DIAGNOSIS: Provider Signature: Date: Once completed, please kindly fax back to [phone] For questions please call [phone] Thank you Marielena [facility]
== END | disposition home or self-care (01) ==
LOC: C.LABSPEC 15:48
PROVIDERS: ATTEND Internal Medicine Nephrology
DX: T85.71XA Infection and inflammatory reaction due to peritoneal dialysis catheter, initial encounter (principal); X58.XXXA Exposure to other specified factors, initial encounter

== ENCOUNTER → 2017-12-02 | Outpatient (CLI) | payer OTHER ==
[~2017-12-02] MED LIST changes: -METR500T PO
--- NOTE | 2017-12-02 13:28 | DIAGNOSTIC IMAGING REPORT ---
Testicular ultrasound CLINICAL HISTORY: N50.89 left testicular swelling COMPARISON STUDY: No previous studies for comparison. FINDINGS: The right testis measures 47 x 26 x 23 mm. The left testis measures 4820 27 mm. No intratesticular masses are visualized. There is no evidence of testicular torsion. No epididymal masses are visualized. There is a small left-sided varicocele. There is a small right-sided scrotolith. IMPRESSION: 1. No evidence of intratesticular mass 2. No evidence of testicular torsion 3. Small left-sided varicocele Electronically signed by: Blayne Auguste M.D. 12/02/2017 1:27 PM Dictated Date/Time: 12/02/2017 1:25 PM
== END | disposition home or self-care (01) ==
LOC: C.ULTR 12:31
PROVIDERS: ATTEND Family Medicine
DX: N50.89 Other specified disorders of the male genital organs (principal)

== ENCOUNTER 2019-09-21 15:21 | Inpatient (IN) ==
[2019-09-21] MEDS ORDERED: ONDANSETRON INJ 2 MG/ML 2 ML VIAL IV STA (15:50)
--- NOTE | 2019-09-21 15:55 | Emergency Department Note ---
History of Present Illness General Chief complaint: Foot Injury/Pain Stated complaint: wound care ref, r foot pain Time Seen by Provider: 09/21/19 15:42 Source: patient Mode of arrival: ambulatory Limitations: no limitations History of Present Illness Provider complaint: right foot pain Onset (ago): month(s) 4 Location: lower extremity Severity: severe Pain Consistency: + constant Current Pain Intensity: 10 Quality: + constant Relieved By: + none Exacerbated By: + movement Associated symptoms: + denies other symptoms Treatments prior to arrival: none This is a 54-year-old male sent to the emergency room from the wound clinic due to increased pain and necrosis noted at the right second toe. Patient states he has had issues with the second toe since May. Patient states he has been following with the wound clinic, the pain clinic, had ultrasound imaging of the leg, and was scheduled to have follow-up MRI. Patient states after his evaluati on today, the doctor was concerned that the toe should be amputated so is referred to the emergency room for surgical evaluation. Patient denies fevers chills. Patient has had several recent surgeries including revision of his peritoneal dialysis catheter. Patient states he was tested prior to surgery for coronavirus and was negative. Patient states there is no position of comfort, however the pain is significantly worse with weightbearing and exertion. Pt seen during a time of high acuity and national emergency pandemic while wearing PPE. Home Medications Home Medications Medication Instructions Recorded Confirmed Type amlodipine 5 mg PO HS 07/04/18 09/21/19 History aspirin 81 mg PO HS 07/04/18 09/21/19 History ergocalciferol (vitamin D2) 50,000 units PO WK 07/04/18 09/21/19 History acetaminophen [Tylenol Extra 1,000 mg PO TID PRN 08/12/18 09/21/19 History Strength] clobetasol [Temovate] 1 applic TOPICAL BID PRN 08/12/18 09/21/19 History lisinopril 5 mg tablet 5 mg PO QAM #90 tab 12/02/18 09/21/19 Rx sodium bicarbonate 650 mg tablet 650 mg PO BID 05/18/19 09/21/19 History gabapentin 300 mg capsule 300 mg PO HS PRN #90 cap 07/14/19 09/21/19 Rx zolpidem 10 mg tablet 10 mg PO HS #30 tab 08/27/19 09/21/19 Rx cephalexin 500 mg capsule 500 mg PO QID 09/14/19 09/21/19 History ferric citrate [Auryxia] See Rx Instructions .ROUTE .COMPLEX 09/21/19 09/21/19 History lactulose 30 ml PO BID PRN 09/21/19 09/21/19 History prednisone 5 mg PO BID 09/21/19 09/21/19 History tamsulosin 0.4 mg PO HS 09/21/19 09/21/19 History Allergies Allergy/AdvReac Type Severity Reaction Status Date / Time doxycycline Allergy Severe RASH Verified 09/21/19 17:43 oxycodone Allergy Severe Swelling Verified 09/21/19 17:43 of throat and itchiness hydrocodone Allergy Mild Rash Verified 09/21/19 17:43 Penicillins Allergy Mild RASH, Verified 09/21/19 17:43 HIVES, ITCHING Past Med/Surg History Medical History AV fistula LEFT ARM Avascular necrosis of bones of both hips Diverticulosis FSGS (focal segmental glomerulosclerosis) History of renal cell cancer Peritoneal dialysis catheter in place DOES DIALYSIS EVERY HS (FOLLOWED BY DR. TUCKER/NEPHROLOGY) Rheumatoid arthritis Surgical History H/O hand surgery (~09/2018) [place] 10/02/18 H/O hernia repair (~10/21/17) 10/20/2017. GETA. Grade 1 view. [place] 2. 8.0 ETT. No issues. History of colonoscopy History of esophagogastroduodenoscopy (EGD) History of incisional hernia repair History of nephrectomy, left (2015) Due to Renal Cell Cancer Hx of abdominal surgery PERITONEAL CATHETER INSERTION + REVISION Hx of umbilical hernia repair (02/2019) S/P arteriovenous (AV) fistula creation S/P arteriovenous (AV) fistula repair MULTIPLE Status post insertion of hemodialysis catheter +MULTIPLE REVISIONS Family History Brother Liver cirrhosis secondary to ALBA Family history of diabetes mellitus Father Brain tumor Coronary heart disease Hypertension Family history of diabetes mellitus Mother Liver cancer Hypertension Family history of diabetes mellitus Breast cancer Grandmother (Maternal) Stroke Sister Family history of diabetes mellitus Grandfather (Maternal) Family hx of colon cancer Social History Preferred Language: Georgian Communication Ability: Effective Visual Impairment: Diminished Hearing Ability: Normal Place Change Roof Bolter Required: No Beliefs That Will Affect Care: None marital status: Current Living Situation: Spouse Current Living Situation Comment: lives with and 2 kids (13, 10) current occupational status: disabled 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 and A total of 10 systems reviewed and were otherwise negative Physical Exam Vital Signs Vital Signs - 24 hr 09/21/19 15:24 Temperature 36.6 C Temperature Source Oral Pulse Rate 73 Respiratory Rate 18 Respiratory Effort / Characteristics Non-Labored Spontaneous Respiratory Depth Normal Respiratory Pattern Regular Blood Pressure 164/79 H Blood Pressure Mean 107 Blood Pressure Position Sitting Pulse Oximetry 98 Oxygen Delivery Method Room Air Sepsis Recent Fever Within 48 Hours No Sepsis New/Unexplained Change in Mental Status No Sepsis Action Taken by Nursing No Action Required GENERAL: alert, well appearing, well nourished, moderate distress, non-toxic EYE EXAM: normal conjunctiva, PERRL and EOM's grossly intact OROPHARYNX: no exudate, no erythema, lips, buccal mucosa, and tongue normal and mucous membranes are moist NECK: supple, no nuchal rigidity, no adenopathy, non-tender LUNGS: Clear to auscultation. Normal chest wall mechanics, no w/r/r HEART: no murmurs, S1 normal and S2 normal ABDOMEN: abdomen soft, non-tender, normo-active bowel sounds, no masses, no rebound or guarding. BACK: Back is symmetrical on inspection and there is no deformity, no midline tenderness, no CVA tenderness. SKIN: no rashes and no bruising UPPER EXTREMITIES: upper extremities are grossly normal. FROM, nml pulses b/l. LOWER EXTREMITIES: No pitting edema. FROM, nml pulses b/l. Right second toe with large area of necrosis noted with distal cyanosis dorsally and increased erythema and edema on the plantar aspect. DP and PT pulses while present are slightly diminished. No evidence of ascending lymphangitis or surrounding inf ection. No bleeding or drainage from the toe. NEURO EXAM: Normal sensorium, cranial nerves II-XII grossly intact, normal speech, no gross weakness of arms, no gross weakness of legs. Gross sensation intact. Course Course 1612: Case discussed with KAILA [place] with Dr. Lozoya. They are familiar with the patient. The did not receive any other information that he was being sent to the emergency room for additional evaluation. Given patient's past medical problems, agree with plan to admit to the hospitalist and they can consult on the patient. Administered Medications Amlodipine Besylate (Norvasc) 5 mg PO HS PAULA Stop: 10/21/19 20:59 Last Admin: 09/23/19 20:36 Dose: 5 mg Documented by: [id number] Admin: 09/22/19 21:18 Dose: 5 mg Documented by: [id number] Admin: 09/21/19 21:59 Dose: 5 mg Documented by: [id number] Aspirin (Ecotrin Ectab) 81 mg PO HS PAULA Stop: 10/21/19 20:59 Last Admin: 09/23/19 20:36 Dose: 81 mg Documented by: [id number] Admin: 09/22/19 21:18 Dose: 81 mg Documented by: [id number] Admin: 09/21/19 21:59 Dose: Not Given Documented by: [id number] Clindamycin HCl (Cleocin) 300 mg PO TID PAULA Stop: 09/30/19 20:59 Last Admin: 09/23/19 20:36 Dose: 300 mg Documented by: [id number] Gabapentin (Neurontin) 300 mg PO HS PRN PRN Reason: Pain Stop: 10/21/19 20:59 Last Admin: 09/23/19 20:36 Dose: 300 mg Documented by: [id number] Gabapentin (Neurontin) 100 mg PO BID PAULA Stop: 10/23/19 17:19 Last Admin: 09/23/19 20:37 Dose: 100 mg Documented by: [id number] Admin: 09/23/19 18:03 Dose: 100 mg Documented by: [id number] Heparin Sodium (Porcine) (Heparin Sodium (Porcine)) 5,000 units SQ Q12 PAULA Stop: 10/21/19 20:59 Last Admin: 09/23/19 20:37 Dose: 5,000 units Documented by: [id number] Cosigned by: [id number] Admin: 09/23/19 08:13 Dose: 5,000 units Documented by: [id number] Cosigned by: [id number] Admin: 09/22/19 21:18 Dose: 5,000 units Documented by: [id number] Cosigned by: [id number] Admin: 09/22/19 09:54 Dose: Not Given Documented by: [id number] Admin: 09/21/19 22:01 Dose: 5,000 units Documented by: [id number] Cosigned by: [id number] Hydromorphone HCl (Dilaudid) 2 mg PO Q6H PRN PRN Reason: Pain Stop: 10/07/19 09:56 Last Admin: 09/23/19 22:32 Dose: 2 mg Documented by: [id number] Admin: 09/23/19 17:08 Dose: 2 mg Documented by: [id number] Lactobacillus Acidophilus (Floranex) 4 tab PO TIDM PAULA Stop: 10/23/19 18:59 Last Admin: 09/23/19 19:36 Dose: 4 tab Documented by: [id number] Lisinopril (Zestril) 5 mg PO QAM [facility] Stop: 10/22/19 08:59 Last Admin: 09/23/19 08:12 Dose: 5 mg Documented by: [id number] Admin: 09/22/19 09:55 Dose: 5 mg Documented by: [id number] Miscellaneous (Order Awaiting Action) 1 ea N/A QS [facility] Stop: 10/22/19 00:00 Last Admin: 09/23/19 20:43 Dose: Not Given Documented by: [id number] Admin: 09/23/19 15:30 Dose: Not Given Documented by: [id number] Admin: 09/23/19 08:14 Dose: Not Given Documented by: [id number] Admin: 09/23/19 00:05 Dose: Not Given Documented by: [id number] Admin: 09/22/19 15:39 Dose: Not Given Documented by: [id number] Admin: 09/22/19 07:12 Dose: Not Given Documented by: [id number] Admin: 09/21/19 23:17 Dose: Not Given Documented by: [id number] Ondansetron HCl (Zofran) 4 mg IV Q6H PRN PRN Reason: Nausea Stop: 10/21/19 20:59 Last Admin: 09/22/19 17:26 Dose: 4 mg Documented by: [id number] Admin: 09/22/19 12:31 Dose: 4 mg Documented by: [id number] Polyethylene Glycol (Miralax Powder Packet) 17 gm PO DAILY PAULA Stop: 10/22/19 08:59 Last Admin: 09/23/19 08:13 Dose: 17 gm Documented by: [id number] Admin: 09/22/19 09:54 Dose: Not Given Documented by: [id number] Prednisone (Prednisone) 15 mg PO BID [facility] Stop: 10/23/19 20:59 Last Admin: 09/23/19 20:36 Dose: 15 mg Documented by: [id number] Sodium Bicarbonate (Sodium Bicarbonate) 1,300 mg PO BID [facility] Stop: 10/22/19 20:59 Last Admin: 09/23/19 20:36 Dose: 1,300 mg Documented by: [id number] Admin: 09/23/19 08:12 Dose: 1,300 mg Documented by: [id number] Admin: 09/22/19 21:19 Dose: 1,300 mg Documented by: [id number] Tamsulosin HCl (Flomax) 0.4 mg PO [facility] Stop: 10/21/19 20:59 Last Admin: 09/23/19 20:36 Dose: 0.4 mg Documented by: [id number] Admin: 09/22/19 21:18 Dose: 0.4 mg Documented by: [id number] Admin: 09/21/19 21:59 Dose: 0.4 mg Documented by: [id number] Zolpidem Tartrate (Ambien) 10 mg PO [facility] Stop: 10/21/19 20:59 Last Admin: 09/23/19 20:36 Dose: 10 mg Documented by: [id number] Admin: 09/22/19 22:18 Dose: 10 mg Documented by: [id number] Admin: 09/21/19 22:19 Dose: 10 mg Documented by: [id number] Discontinued Medications Bacitracin (Bacitracin) Confirm Administered Dose 50,000 units .ROUTE .STK-MED ONE Stop: 09/22/19 17:58 Last Admin: 09/22/19 19:04 Dose: 50,000 units Documented by: [id number] Hydromorphone HCl (Dilaudid) 1 mg IV Q15M PRN PRN Reason: Pain Stop: 10/05/19 15:49 Last Admin: 09/21/19 20:28 Dose: 1 mg Documented by: [id number] Admin: 09/21/19 19:26 Dose: 1 mg Documented by: [id number] Admin: 09/21/19 16:40 Dose: 1 mg Documented by: [id number] Admin: 09/21/19 16:15 Dose: 1 mg Documented by: [id number] Admin: 09/21/19 16:01 Dose: 1 mg Documented by: [id number] Hydromorphone HCl () 30 mg IV PRN PRN; Protocol PRN Reason: PRIVATE DUTY AIDE Pain Titration Stop: 10/05/19 18:55 Last Admin: 09/21/19 21:07 Dose: 30 mg Documented by: [id number] Cosigned by: [id number] Hydromorphone HCl (Dilaudid) 0.5 mg IV NOW STA Stop: 09/22/19 08:44 Last Admin: 09/22/19 09:22 Dose: 0.5 mg Documented by: [id number] Hydromorphone HCl (Dilaudid) 1 mg IV NOW STA Stop: 09/23/19 17:21 Last Admin: 09/23/19 17:40 Dose: 1 mg Documented by: [id number] Vancomycin HCl 1,750 mg/ (Sodium Chloride) 535 mls @ 125 mls/hr IV ONE ONE; Protocol Stop: 09/21/19 23:31 Last Infusion: 09/22/19 00:31 Dose: 0 mls/hr Documented by: [id number] Admin: 09/21/19 19:27 Dose: 125 mls/hr Documented by: [id number] Cefepime HCl 1,000 mg/ Syringe 11.3 mls @ 5.5 mls/min IV NOW ONE; Protocol Stop: 09/21/19 19:17 Last Admin: 09/21/19 19:27 Dose: 5.5 mls/min Documented by: [id number] Cefepime HCl 1,000 mg/ Syringe 11.3 mls @ 5.5 mls/min IV Q24H PAULA Stop: 09/29/19 18:59 Last Admin: 09/22/19 21:17 Dose: 5.5 mls/min Documented by: [id number] Sodium Chloride (Nss 1000ml) 1,000 mls @ 15 mls/hr IV .Q24H PAULA Stop: 10/05/19 21:00 Last Infusion: 09/23/19 18:50 Dose: 0 mls/hr Documented by: [id number] Admin: 09/23/19 00:19 Dose: 15 mls/hr Documented by: [id number] Infusion: 09/23/19 00:19 Dose: 15 mls/hr Documented by: [id number] Infusion: 09/22/19 21:06 Dose: 15 mls/hr Documented by: [id number] Admin: 09/21/19 21:58 Dose: 15 mls/hr Documented by: [id number] Calcium Gluconate 1,000 mg/ (Sodium Chloride) 60 mls @ 240 mls/hr IV NOW ONE Stop: 09/23/19 12:29 Last Infusion: 09/23/19 12:35 Dose: 0 mls/hr Documented by: [id number] Admin: 09/23/19 12:17 Dose: 240 mls/hr Documented by: [id number] Ondansetron HCl (Zofran) 4 mg IV NOW STA Stop: 09/21/19 15:51 Last Admin: 09/21/19 16:01 Dose: 4 mg Documented by: [id number] Perflutren Lipid Microsphere (Definity) 2 ml IV ONCE ONE Stop: 09/22/19 08:02 Last Admin: 09/22/19 08:02 Dose: 2 ml Documented by: [id number] Prednisone (Prednisone) 20 mg PO BID PAULA Stop: 10/21/19 20:59 Last Admin: 09/23/19 08:12 Dose: 20 mg Documented by: [id number] Admin: 09/22/19 21:19 Dose: 20 mg Documented by: [id number] Admin: 09/22/19 11:37 Dose: 20 mg Documented by: [id number] Admin: 09/21/19 23:06 Dose: Not Given Documented by: [id number] Sodium Bicarbonate (Sodium Bicarbonate) 650 mg PO BID PAULA Stop: 10/21/19 20:59 Last Admin: 09/22/19 09:55 Dose: 650 mg Documented by: [id number] Admin: 09/21/19 21:59 Dose: 650 mg Documented by: [id number] Sodium Bicarbonate (Sodium Bicarbonate 8.4%) 50 meq IV NOW ONE Stop: 09/23/19 11:46 Last Admin: 09/23/19 12:18 Dose: 50 meq Documented by: [id number] Medical Decision Making Differential Diagnosis DDx includes nonhealing ulcer, ischemia, cellulitis, osteomyelitis, trauma, avascular necrosis, as well as others were considered Medical Records Attestation: I reviewed the patient's medical records. Home Medications Current Medication List: was personally reviewed by me Laboratory Data Attestation: I reviewed the patient's lab results. Result diagrams: 09/21/19 15:40 09/23/19 18:20 Lab Results 09/21/19 09/21/19 09/21/19 Range/Units 15:40 15:40 15:40 WBC 14.58 H (4.8-10.8) K/uL RBC 3.90 L (4.7-6.1) M/uL Hgb 11.8 L (14.0-18.0) g/dL Hct 37.1 L (42-52) % MCV 95.1 (80-100) fL MCH 30.3 (25-34) pg MCHC 31.8 L (32-36) g/dL RDW Std Deviation 56.5 H (36.4-46.3) fL RDW Coeff of Marcelino 16.3 H (11.5-14.5) % Plt Count 248 (130-400) K/uL MPV 10.9 H (7.4-10.4) fL Immature Gran % (Auto) 4.7 % Neut % (Auto) 83.6 % Lymph % (Auto) 5.0 % [place] % (Auto) 5.4 % Eos % (Auto) 0.8 % Baso % (Auto) 0.5 % Immature Gran # (Auto) 0.69 H (0.00-0.02) K/uL Neut # (Auto) 12.18 H (1.4-6.5) K/uL Lymph # (Auto) 0.73 L (1.2-3.4) K/uL [place] # (Auto) 0.79 H (0.11-0.59) K/uL Eos # (Auto) 0.11 (0-0.5) K/uL Baso # (Auto) 0.08 (0-0.2) K/uL Absolute Nucleated RBC 0.04 H (0-0) K/uL Nucleated RBC % (auto) 0.3 % Sodium 137 (136-145) mmol/L Potassium 5.5 H (3.5-5.1) mmol/L Chloride 108 H (98-107) mmol/L Carbon Dioxide 19 L (21-32) mmol/L Anion Gap 10.0 (3-11) BUN 65 H (7-18) mg/dl Creatinine 10.10 H* (0.6-1.4) mg/dl Est Cr Clr Drug Dosing 9.9 ml/min Est GFR ( Amer) 5.9 Est GFR (Non-Af Amer) 5.1 BUN/Creatinine Ratio 6.4 L (10-20) Glucose 101 H (70-99) mg/dl Lactate 1.3 (0.4-2.0) mmol/L Calcium 9.8 (8.5-10.1) mg/dl Magnesium 2.6 H (1.8-2.4) mg/dl Total Bilirubin 0.4 (0.2-1) mg/dl AST 10 L (15-37) U/L ALT 38 (12-78) U/L Alkaline Phosphatase 66 (45-117) U/L Troponin I < 0.015 (0-0.045) ng/ml Total Protein 7.4 (6.4-8.2) gm/dl Albumin 3.8 (3.4-5.0) gm/dl Globulin 3.6 (2.5-4.0) gm/dl Albumin/Globulin Ratio 1.0 (0.9-2) Imaging Data Radiologist's Impression: US arterial duplex LE RT HISTORY: 54 years-old Male ischemic right toe peripheral arterial disease COMPARISON: Right toe radiographs of same day TECHNIQUE: Segmental blood pressures were obtained along with multiple real time sonographic images of the right lower extremity arterial structures assessing grayscale appearance, color and spectral flow FINDINGS: Segmental blood pressures were unable to be obtained secondary to noncompressible vessels. Arterial calcifications are noted on comparison radiographs. There is at least moderate calcified plaque throughout the right lower extremity. Triphasic waveforms are noted within the common femoral, profunda femoris, superficial femoral and popliteal arteries. Biphasic waveforms are noted within the posterior tibial artery. Monophasic, biphasic and triphasic waveforms are noted within the peroneal artery. Predominantly biphasic waveforms are noted within the anterior tibial and dorsalis pedis arteries. No arterial occlusion or significantly elevated pressures to suggest high-grade stenosis. IMPRESSION: 1. Triphasic waveforms are noted above the level of the knee. 2. No arterial occlusion or significantly elevated peak systolic velocities to suggest high-grade stenosis. ACT 112: Negative or not required by law. The above report was generated using voice recognition software. It may contain grammatical, syntax or spelling errors. Electronically signed by: Steve Steele M.D. 09/21/2019 5:39 PM RIGHT SECOND TOE 3 VIEWS CLINICAL HISTORY: Nonhealing wound, necrosis. COMPARISON: None. DISCUSSION: No fractures or dislocations are visualized. There are extensive vascular calcifications. There are no destructive lesions to indicate acute osteomyelitis. There is no gas present within the soft tissues. IMPRESSION: 1. No evidence of fracture 2. No conventional radiographic evidence of osteomyelitis ACT 112: Negative or not required by law. Electronically signed by: Blayne Auguste M.D. 09/21/2019 4:18 PM Blood Pressure Blood Pressure Findings: Elevated blood pressure Blood Pressure Disposition: further management by hospitalist MDM Narrative Pt here after being sent over by wound clinic due to worsening ischemia of right 2nd toe. Pt states he has been dealing with an ulcer for 4 months and it continues to worsen. Pt states the pain has been unbearable despite home meds and working with pain mgmt. He states wound clinic told him the toe would need to be amputated. Obvious necrotic ulcer noted on exam and pt in significant pain. Pt with multiple risk factors for PAD. I contacted vascular PALudy, who is familiar with the patient but didn't realize he had been referred to the ED. Given need for additional IV pain meds, risk factors, and worsening condition, case discussed with hospitalist. No evidence of active infection including osteomyelitis, but may benefit from MRI if this hasn't been done already. US arterial doppler and xray reassuring. Pt given multiple doses of IV dilaudid. Pt made aware of results. An order was placed for continuous cardiac monitoring. The monitor shows a rate of _80 with normal sinus rhythm. Impression & Plan Ischemic ulcer of toe of right foot, ESRD (end stage renal disease) on dialysis, Peripheral arterial disease, Right second toe ulcer Discharge Plan Visit Data *Final* Discharge Date/Time: 09/21/19 20:20 Chief Complaint: Foot Injury/Pain Stated Complaint: wound care ref, r foot pain ED Provider: Sheela Madsen Discharge Problem: Ischemic ulcer of toe of right foot, ESRD (end stage renal disease) on dialysis, Peripheral arterial disease, Right second toe ulcer Patient Disposition: Admitted As Inpatient Discharge Instructions Interventions: ED Discharge Assessment Last Done: 09/21/19 20:20 Discharge Problem: Ischemic ulcer of toe of right foot Qualifiers: Non-pressure ulcer stage: with necrosis of muscle Qualified Code(s): L97.513 - Non-pressure chronic ulcer of other part of right foot with necrosis of muscle Right second toe ulcer Qualifiers: Non-pressure ulcer stage: with necrosis of muscle Qualified Code(s): L97.513 - Non-pressure chronic ulcer of other part of right foot with necrosis of muscle
[2019-09-21 15:58] LABS: Basophils # (auto) 0.08 K/uL (0-0.2); Basophils % (auto) 0.5 %; Eosinophils # (auto) 0.11 K/uL (0-0.5); Eosinophils % (auto) 0.8 %; Hematocrit (blood only) 37.1 % (42-52); Hemoglobin 11.8 g/dL (14.0-18.0); Immature Granulocytes # (auto) 0.69 K/uL (0.00-0.02); Immature Granulocytes % (auto) 4.7 %; Lymphocytes # (auto) 0.73 K/uL (1.2-3.4); Mean Corpuscular Hemoglobin 30.3 pg (25-34); Mean Corpuscular Hgb Conc 31.8 g/dL (32-36); Mean Corpuscular Volume 95.1 fL (80-100); Mean Platelet Volume 10.9 fL (7.4-10.4); Monocytes # (auto) 0.79 K/uL (0.11-0.59); Monocytes % (auto) 5.4 %; Neutrophils # (auto) 12.18 K/uL (1.4-6.5); Neutrophils % (auto) 83.6 %; Nucleated RBC # (auto) 0.04 K/uL (0-0); Nucleated RBC % (auto) 0.3 %; Platelet Count 248 K/uL (130-400); RDW Coefficient of Variation 16.3 % (11.5-14.5); RDW Standard Deviation 56.5 fL (36.4-46.3); White Blood Count 14.58 K/uL (4.8-10.8)
[2019-09-21] MEDS: HYDROmorphone INJ 1 MG/ML SYRINGE IV PRN ×5 (16:01→20:28)
--- NOTE | 2019-09-21 16:19 | XRay Report ---
RIGHT SECOND TOE 3 VIEWS CLINICAL HISTORY: Nonhealing wound, necrosis. COMPARISON: None. DISCUSSION: No fractures or dislocations are visualized. There are extensive vascular calcifications. There are no destructive lesions to indicate acute osteomyelitis. There is no gas present within the soft tissues. IMPRESSION: 1. No evidence of fracture 2. No conventional radiographic evidence of osteomyelitis ACT 112: Negative or not required by law. Electronically signed by: Blayne Auguste M.D. 09/21/2019 4:18 PM
[2019-09-21 16:32] LABS: Alanine Aminotransferase 38 U/L (12-78); Albumin Level 3.8 gm/dl (3.4-5.0); Alkaline Phosphatase 66 U/L (45-117); Aspartate Aminotransferase 10 U/L (15-37); BUN Creatinine Ratio 6.4 (10-20); Bilirubin,Total 0.4 mg/dl (0.2-1); Blood Urea Nitrogen 65 mg/dl (7-18); Calcium 9.8 mg/dl (8.5-10.1); Carbon Dioxide 19 mmol/L (21-32); Chloride 108 mmol/L (98-107); Creatinine Clr Calc Pharmacy 9.9 ml/min; Est GFR (African American) 5.9; Est GFR (Non-African American) 5.1; Globulin 3.6 gm/dl (2.5-4.0); Glucose 101 mg/dl (70-99); Magnesium 2.6 mg/dl (1.8-2.4); Potassium 5.5 mmol/L (3.5-5.1); Sodium 137 mmol/L (136-145); Total Protein 7.4 gm/dl (6.4-8.2); Troponin I < 0.015 ng/ml (0-0.045)
--- NOTE | 2019-09-21 17:41 | Ultrasound Report ---
US arterial duplex LE RT HISTORY: 54 years-old Male ischemic right toe peripheral arterial disease COMPARISON: Right toe radiographs of same day TECHNIQUE: Segmental blood pressures were obtained along with multiple real time sonographic images o f the right lower extremity arterial structures assessing grayscale appearance, color and spectral fl ow FINDINGS: Segmental blood pressures were unable to be obtained secondary to noncompressible vessels. Arterial c alcifications are noted on comparison radiographs. There is at least moderate calcified plaque throughout the right lower extremity. Triphasic waveforms are noted within the common femoral, profunda femoris, superficial femoral and popliteal arteries. B iphasic waveforms are noted within the posterior tibial artery. Monophasic, biphasic and triphasic wa veforms are noted within the peroneal artery. Predominantly biphasic waveforms are noted within the a nterior tibial and dorsalis pedis arteries. No arterial occlusion or significantly elevated pressures to suggest high-grade stenosis. IMPRESSION: 1. Triphasic waveforms are noted above the level of the knee. 2. No arterial occlusion or significantly elevated peak systolic velocities to suggest high-grade giovana nosis. ACT 112: Negative or not required by law. The above report was generated using voice recognition software. It may contain grammatical, syntax o r spelling errors. Electronically signed by: Steve Steele M.D. 09/21/2019 5:39 PM
--- NOTE | 2019-09-21 18:10 | History & Physical Report ---
Date of Service September 21, 2019 Assessment & Plan (1) Ischemic ulcer of toe of right foot: Patient has been battling this incredibly painful ischemic ulcer of the RIGHT 2nd toe for weeks-months without improvement. He reports that during a PD catheter procedure in May he awoke from anesthe ld and had severe pain in the right 2nd toe. The discomfort never went away, and of course he developed the ulcer. The sudden development of the pain in the toe following that procedure suggests he had an embolic event. Does he have an atrial thrombus? Did he have paroxysmal a.fib? Is there an underlying vasculitis? Regardless he will need amputation of the toe given the intractable pain and d evelopment of dry gangrene. I spoke with Dr Goodwin from orthopedics who will consult tomorrow. In meantime place on broad-spectrum IV antibiotics (Cefepime, vancomycin). Patient required copious amounts of IV dilaudid in ER to maintain pain control - will allow him to have HOSPICE DIRECTOR dilaudid. Keep NPO after MN tonight for potential surgery tomorrow. Check echo - r/o thrombus. Place on tele - r/o PAF, flutter, etc. Consider consulting Dr Tineo from cardiology to review his arterial studies and to ensure he does not need any vascular intervention. (2) Gangrene of toe of right foot: right 2nd toe - see above (3) ESRD (end stage renal disease) on dialysis: on home peritoneal dialysis I spoke with Dr Barreto from [facility] nephrology who will consult for PD management (4) Rheumatoid arthritis: prednisone-dependent. will place on stress dose steroids with 20mg PO BID for now. typically is on 5mg BID at home. (5) Hypertension: cont home meds (6) History of nephrectomy, left: 2nd to RCC (7) GERD (gastroesophageal reflux disease): no symptoms at this time (8) Coronary artery disease: this is listed as a diagnosis in his record but he did not mention this during the history. will check echo and investigate this further. 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 The toe has been a problem since May 292019. He initially had a blister on the right 2nd toe. The blister ultimately popped in June and he was dressing the toe with topical antibiotics and dressings. He has been [facility] over the last few weeks. This is also the time period in which the pain has gotten much worse. The pain is constant but worse at night. He has a hard time weight-bearing because of the pain. Using tramadol prn for pain without relief. No drainage. The toe is black in appearance. This has been present since June but getting worse. No obvious odor. No fevers. He takes chronic prednisone for rheumatoid arthritis - 5mg BID. Been on prednisone for 12+ months. 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 Has been on dialysis for about 3-[address] Barreto from [facility] nephrology. Allergies Allergy/AdvReac Type Severity Reaction Status Date / Time doxycycline Allergy Severe RASH Verified 09/21/19 17:43 oxycodone Allergy Severe Swelling Verified 09/21/19 17:43 of throat and itchiness hydrocodone Allergy Mild Rash Verified 09/21/19 17:43 Penicillins Allergy Mild RASH, Verified 09/21/19 17:43 HIVES, ITCHING Home Medications Home Medications Medication Instructions Recorded Confirmed Type amlodipine 5 mg PO HS 07/04/18 09/21/19 History aspirin 81 mg PO HS 07/04/18 09/21/19 History ergocalciferol (vitamin D2) 50,000 units PO WK 07/04/18 09/21/19 History acetaminophen [Tylenol Extra 1,000 mg PO TID PRN 08/12/18 09/21/19 History Strength] clobetasol [Temovate] 1 applic TOPICAL BID PRN 08/12/18 09/21/19 History lisinopril 5 mg tablet 5 mg PO QAM #90 tab 12/02/18 09/21/19 Rx sodium bicarbonate 650 mg tablet 650 mg PO BID 05/18/19 09/21/19 History gabapentin 300 mg capsule 300 mg PO HS PRN #90 cap 07/14/19 09/21/19 Rx zolpidem 10 mg tablet 10 mg PO HS #30 tab 08/27/19 09/21/19 Rx cephalexin 500 mg capsule 500 mg PO QID 09/14/19 09/21/19 History ferric citrate [Auryxia] See Rx Instructions .ROUTE .COMPLEX 09/21/19 09/21/19 History lactulose 30 ml PO BID PRN 09/21/19 09/21/19 History prednisone 5 mg PO BID 09/21/19 09/21/19 History tamsulosin 0.4 mg PO HS 09/21/19 09/21/19 History Past Med/Surg History Medical History (Updated 09/22/19 @ 07:08 by Gualberto Maya) AV fistula LEFT ARM Avascular necrosis of bones of both hips Diverticulosis FSGS (focal segmental glomerulosclerosis) History of renal cell cancer Peritoneal dialysis catheter in place DOES DIALYSIS EVERY HS (FOLLOWED BY DR. TUCKRE/NEPHROLOGY) Rheumatoid arthritis Surgical History H/O hand surgery (~09/2018) [place] 10/02/18 H/O hernia repair (~10/21/17) 10/20/2017. GETA. Grade 1 view. Escobar 2. 8.0 ETT. No issues. History of colonoscopy History of esophagogastroduodenoscopy (EGD) History of incisional hernia repair History of nephrectomy, left (2015) Due to Renal Cell Cancer Hx of abdominal surgery PERITONEAL CATHETER INSERTION + REVISION Hx of umbilical hernia repair (02/2019) S/P arteriovenous (AV) fistula creation S/P arteriovenous (AV) fistula repair MULTIPLE Status post insertion of hemodialysis catheter +MULTIPLE REVISIONS Family History Brother Liver cirrhosis secondary to ALBA Family history of diabetes mellitus Father Brain tumor Coronary heart disease Hypertension Family history of diabetes mellitus Mother Liver cancer Hypertension Family history of diabetes mellitus Breast cancer Grandmother (Maternal) Stroke Sister Family history of diabetes mellitus Grandfather (Maternal) Family hx of colon cancer Social History Preferred Language: Angolan Communication Ability: Effective Visual Impairment: Diminished Hearing Ability: Normal Air Traffic Control Specialist Required: No Beliefs That Will Affect Care: None marital status: Current Living Situation: Spouse Current Living Situation Comment: lives with and 2 kids (13, 10) current occupational status: disabled 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[employer], 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, 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 other: lives in [place] Feels Safe at Home: Yes Smoking Status: Never smoker Second Hand Exposure: No ; Hx Alcohol Use: No Hx Substance Use: No Childhood Exposure to Second-Hand Smoke: Yes caffeine: No during the past year weight has: decreased > 10 lbs Dental Care, Regularly: Yes Physical Activity Frequency: 1-2 Times per Week Physical Activity Frequency Comment: walking Seatbelt Use: always Sunscreen Use: No Review of Systems Constitutional: + anorexia and + weight loss; no fever and no chills had PD catheter placement last Saturday in [facility]; anorexia since; 9 pounds of weight loss Eyes: no worsening vision Ear, Nose, Mouth, Throat: no sore throat and no dysphagia Respiratory: no cough and no dyspnea Cardiovascular: no chest pain Gastrointestinal: + abdominal pain (due to catheter ); no nausea, no vomiting and no diarrhea/loose stools Genitourinary: + problem reported (still makes urine; no dysuria ) Musculoskeletal: right 2nd toe black; other toes wnl; calves hurt with walking Integumentary: as per Subjective / HPI and + skin ulcer Neurologic: no loss of sensation Psychiatric: no depression Endocrine: no diabetes Hematologic / Lymphatic: no easy bleeding Physical Exam Constitutional: well developed, well nourished and + acute distress; no altered mental status Eyes: + anicteric sclerae and PERRL ENMT: external ear and nose normal, oropharynx normal Neck: trachea midline, no thyromegaly Respiratory: normal respiratory effort, lungs clear to auscultation Cardiovascular: Rate/Rhythm: regular rate and regular rhythm Heart Sounds: normal S1 and normal S2; no murmur Vessels: femoral pulses present, posterior tibial pulses present, dorsalis pedis pulses present and popliteal pulses present; no JVD Extremities: + AV fistula; no edema Gastrointestinal (Abdomen): Inspection/Auscultation: normal bowel sounds Percussion/Palpation: abdomen soft; abdomen nontender and no hepatosplenomegaly PD catheter present; multiple abd wall scars Musculoskeletal: cap refill of both feet <2 seconds except for right 2nd toe Skin: dry gangrene/ischemic ulcer of 2nd toe, right foot; black appearance of ulceration with rest of toe dusky in color; palpation of toe causes severe pain Neurologic: deep tendon reflexes 2+ bilaterally and moves all extremities Psychiatric: A+Ox3, euthymic affect Lymphatic: no cervical lymphadenopathy Results & Data Results & Data ([facility]) Vital Signs (Past 12 Hours) Vital Signs Temp Pulse Resp BP Pulse Ox 09/21/19 15:24 36.6 C 73 18 164/79 H 98 Laboratory Results Laboratory Results - last 24 hr 09/21/19 09/21/19 09/21/19 15:40 15:40 15:40 WBC 14.58 H RBC 3.90 L Hgb 11.8 L Hct 37.1 L MCV 95.1 MCH 30.3 MCHC 31.8 L RDW Std Deviation 56.5 H RDW Coeff of Marcelino 16.3 H Plt Count 248 MPV 10.9 H Immature Gran % (Auto) 4.7 Neut % (Auto) 83.6 Lymph % (Auto) 5.0 [place] % (Auto) 5.4 Eos % (Auto) 0.8 Baso % (Auto) 0.5 Immature Gran # (Auto) 0.69 H Neut # (Auto) 12.18 H Lymph # (Auto) 0.73 L [place] # (Auto) 0.79 H Eos # (Auto) 0.11 Baso # (Auto) 0.08 Absolute Nucleated RBC 0.04 H Nucleated RBC % (auto) 0.3 Sodium 137 Potassium 5.5 H Chloride 108 H Carbon Dioxide 19 L Anion Gap 10.0 BUN 65 H Creatinine 10.10 H* Est Cr Clr Drug Dosing 9.9 Est GFR ( Amer) 5.9 Est GFR (Non-Af Amer) 5.1 BUN/Creatinine Ratio 6.4 L Glucose 101 H Lactate 1.3 Calcium 9.8 Magnesium 2.6 H Total Bilirubin 0.4 AST 10 L ALT 38 Alkaline Phosphatase 66 Troponin I < 0.015 Total Protein 7.4 Albumin 3.8 Globulin 3.6 Albumin/Globulin Ratio 1.0 Diagnostic Findings 1. arterial dopplers, RLE - no evidence of any high-grade stenosis. 2. right 2nd toe x-ray - no evidence of osteomyelitis. Code Status & VTE Plan Code Status full VTE Prophylaxis Plan VTE Prophylaxis will be ordered: Yes PG Care Time/CCT Total # of Minutes Spent Total Time Spent with Patient: Total time spent is greater than 50% in coordination of care (as documented) at patient's floor/unit and/or counseling patient: Coding Level of Care Code 51031 Initial Inpt Care Lvl 3 Diagnoses Ischemic ulcer of toe of right foot L97.519 Non-pressure ulcer stage: unspecified non-pressure ulcer stage Gangrene of toe of right foot I96 ESRD (end stage renal disease) on dialysis N18.6; Z99.2 Rheumatoid arthritis M06.9 Hypertension I10 History of nephrectomy, left Z90.5 GERD (gastroesophageal reflux disease) K21.9 Coronary artery disease I25.10 DVT prophylaxis Z29.9 (1) Ischemic ulcer of toe of right foot Non-pressure ulcer stage: unspecified non-pressure ulcer stage Qualified Code(s): L97.519 - Non-pressure chronic ulcer of other part of right foot with unspecified severity
[2019-09-21] MEDS ORDERED: VANCOMYCIN CONSULT ACTIVE PRN (18:56)
[2019-09-21] MEDS ORDERED: VANCOMYCIN HCL 1,750 MG in SODIUM CHLORIDE 0.9% 250 ML IV ONE (18:56)
[2019-09-21] MEDS ORDERED: HYDROmorphone PCA 30 MG/30 ML IV PRN (18:56)
[2019-09-21] MEDS ORDERED: CEFEPIME 500 MG in SYRINGE 0 ML IV SCH (18:56)
[2019-09-21] MEDS ORDERED: VANCOMYCIN HCL 1,750 MG in SODIUM CHLORIDE 0.9% 500 ML IV ONE (19:15)
[2019-09-21] MEDS ORDERED: CEFEPIME 1,000 MG in SYRINGE 0 ML IV ONE (19:15)
[2019-09-21] MEDS ORDERED: CEFEPIME CONSULT ACTIVE PRN (20:42)
--- NOTE | 2019-09-21 20:42 | Nephrology Consultation ---
Date of Consultation September 21, 2019 Assessment & Plan (1) ESRD (end stage renal disease) on dialysis: Orders for NCCPD tonight have been entered into the EMR and discussed with the dialysis nurse. 2.5% dextrose x 4 exchanges @ 1500 ml with 90 minute dwell. Last bag option held during admission. Emergent treatment necessary tonight for clearance necessary for hyperkalemia. No heparin with dialysis. UF goal is to maintain EDW of ~94 kg. Volume status currently appears euvolemic. BP somewhat sympathetically elevated from pain. Exit site care per protocol. Repeat metabolic profile tomorrow AM. Chronic stable anemia, no need for BECKIE therapy. History of Present Illness Reason for Consultation: ESRD on PD; hyperkalemia Requesting Physician: Torsten Villalba MD Attending Physician: Torsten Villalba MD History of Present Illness Mr. Sesar Hernandez is a 54-year-old male with end-stage renal disease related to history of focal segmental glomerular sclerosis and unilateral nephrectomy for renal cell cancer. Sesar has been on dialysis since 2016. He is maintained on NCCPD (4 exchanges + last fill dwell, 1500 ml per fill, 90 minute dwell, EDW 94 kg). He tends toward performing manual exchanges at home however. Recent complications include malfunction of the catheter due to positioning, abdominal adhesions, and omentum. This was repaired by Dr. Ulloa in August 2019. Sesar was maintained on IHD via a LUE AVF pending catheter repair. AVF functioned well but did unfortunately infiltrate during his last HD session. There is a healing hematoma noted. The AVF has good thrill and bruit. Since returning to PD at the end of August, Sesar has not had any complications with exchanges. He has been using 2.5% dextrose with one nightly treatment of 4.25% over the weekend for fluid gains. Heparin instilled during his last treatment for fibrin formation. Exchanges have been clear. There is a notable history of several episodes of peritonitis. Medical history is also notable for psoriatic arthritis, AVN of the hips, history of chronic steroid use, DMII (diet controlled), hypertension, ALBA, obesity, PAD and an ischemic ulcer on the right second toe. Sesar was referred to the ER from the wound care clinic today with significant pain and dry gangrene of the toe. He was in notable pain during my assessment but noted that pain control was improving. He has been advised that amputation may be required. I discussed the plan of care with Dr. Villalba this afternoon. Vancomycin was infusing in the ER. I updated the dialysis nurse regarding orders for NCCPD this evening. Allergies Allergy/AdvReac Type Severity Reaction Status Date / Time doxycycline Allergy Severe RASH Verified 09/21/19 17:43 oxycodone Allergy Severe Swelling Verified 09/21/19 17:43 of throat and itchiness hydrocodone Allergy Mild Rash Verified 09/21/19 17:43 Penicillins Allergy Mild RASH, Verified 09/21/19 17:43 HIVES, ITCHING Home Medications Home Medications Medication Instructions Recorded Confirmed Type amlodipine 5 mg PO HS 07/04/18 09/21/19 History aspirin 81 mg PO HS 07/04/18 09/21/19 History ergocalciferol (vitamin D2) 50,000 units PO WK 07/04/18 09/21/19 History acetaminophen [Tylenol Extra 1,000 mg PO TID PRN 08/12/18 09/21/19 History Strength] clobetasol [Temovate] 1 applic TOPICAL BID PRN 08/12/18 09/21/19 History lisinopril 5 mg tablet 5 mg PO QAM #90 tab 12/02/18 09/21/19 Rx sodium bicarbonate 650 mg tablet 650 mg PO BID 05/18/19 09/21/19 History gabapentin 300 mg capsule 300 mg PO HS PRN #90 cap 07/14/19 09/21/19 Rx zolpidem 10 mg tablet 10 mg PO HS #30 tab 08/27/19 09/21/19 Rx cephalexin 500 mg capsule 500 mg PO QID 09/14/19 09/21/19 History ferric citrate [Auryxia] See Rx Instructions .ROUTE .COMPLEX 09/21/19 09/21/19 History lactulose 30 ml PO BID PRN 09/21/19 09/21/19 History prednisone 5 mg PO BID 09/21/19 09/21/19 History tamsulosin 0.4 mg PO HS 09/21/19 09/21/19 History Patient History Medical History AV fistula LEFT ARM Avascular necrosis of bones of both hips Diverticulosis FSGS (focal segmental glomerulosclerosis) History of renal cell cancer Peritoneal dialysis catheter in place DOES DIALYSIS EVERY HS (FOLLOWED BY DR. TUCKER/NEPHROLOGY) Surgical History H/O hand surgery (~09/2018) [place] 10/02/18 H/O hernia repair (~10/21/17) 10/20/2017. GETA. Grade 1 view. [place]obar 2. 8.0 ETT. No issues. History of colonoscopy History of esophagogastroduodenoscopy (EGD) History of incisional hernia repair History of nephrectomy, left (2015) Due to Renal Cell Cancer Hx of abdominal surgery PERITONEAL CATHETER INSERTION + REVISION Hx of umbilical hernia repair (02/2019) S/P arteriovenous (AV) fistula creation S/P arteriovenous (AV) fistula repair MULTIPLE Status post insertion of hemodialysis catheter +MULTIPLE REVISIONS Family History Brother Liver cirrhosis secondary to ALBA Family history of diabetes mellitus Father Brain tumor Coronary heart disease Hypertension Family history of diabetes mellitus Mother Liver cancer Hypertension Family history of diabetes mellitus Breast cancer Grandmother (Maternal) Stroke Sister Family history of diabetes mellitus Grandfather (Maternal) Family hx of colon cancer Social History Preferred Language: Albanian Communication Ability: Effective Visual Impairment: Diminished Hearing Ability: Normal Video Game Animator Required: No Beliefs That Will Affect Care: None marital status: Current Living Situation: Spouse and Family Current Living Situation Comment: lives with and 2 kids (13, 10) current occupational status: disabled 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, 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, 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 other: lives in [place] Feels Safe at Home: Yes Smoking Status: Never smoker Second Hand Exposure: No ; Hx Alcohol Use: No Hx Substance Use: No Childhood Exposure to Second-Hand Smoke: Yes caffeine: No during the past year weight has: decreased > 10 lbs Dental Care, Regularly: Yes Physical Activity Frequency: 1-2 Times per Week Physical Activity Frequency Comment: walking Seatbelt Use: always Sunscreen Use: No Review of Systems Constitutional: no fever and no chills Eyes: no problem reported Ear, Nose, Mouth, Throat: no problem reported Respiratory: no problem reported Cardiovascular: no problem reported Gastrointestinal: + constipation; no nausea and no blood in stools pencil thin stool Genitourinary: no difficulty urinating and no problem reported Musculoskeletal: + joint pain; no swelling Integumentary: + lesions and + dry skin; no erythema Neurologic: no problem reported Physical Exam Constitutional: well developed; no acute distress Eyes: no scleral abnormality and no corneal abnormality ENMT: Mouth: no oral mucosal abnormality and oral mucous membranes not dry Neck: normal visual inspection and trachea midline Respiratory: normal respiratory effort Auscultation: lungs clear to auscultation bilaterally Cardiovascular: Rate/Rhythm: regular rate Heart Sounds: normal S1 and normal S2 Extremities: + AV fistula; no edema Gastrointestinal (Abdomen): Inspection/Auscultation: + abdomen distended Percussion/Palpation: abdomen soft; abdomen nontender PD catheter exit site clean ; well healed incisions x2 from recent laparoscopy Musculoskeletal: Extremities: no cyanosis and no clubbing ulcerated and necrotic circumscribed lesion on right second toe, dry, no significant erythema Skin: normal turgor; no lesions Neurologic: Motor/Sensory: no tremor and no asterixis Psychiatric: Orientation: alert and oriented x 3 Results & Data Vital Signs (Past 12 Hours) Vital Signs Temp Pulse Pulse Resp BP BP Pulse Ox 09/21/19 20:20 62 16 142/89 H 98 09/21/19 20:00 63 18 163/90 H 96 09/21/19 18:00 75 20 179/111 H 97 09/21/19 15:24 36.6 C 73 18 164/79 H 98 Laboratory Results Laboratory Results - last 24 hr 09/21/19 09/21/19 09/21/19 15:40 15:40 15:40 WBC 14.58 H RBC 3.90 L Hgb 11.8 L Hct 37.1 L MCV 95.1 MCH 30.3 MCHC 31.8 L RDW Std Deviation 56.5 H RDW Coeff of Marcelino 16.3 H Plt Count 248 MPV 10.9 H Immature Gran % (Auto) 4.7 Neut % (Auto) 83.6 Lymph % (Auto) 5.0 [place] % (Auto) 5.4 Eos % (Auto) 0.8 Baso % (Auto) 0.5 Immature Gran # (Auto) 0.69 H Neut # (Auto) 12.18 H Lymph # (Auto) 0.73 L [place] # (Auto) 0.79 H Eos # (Auto) 0.11 Baso # (Auto) 0.08 Absolute Nucleated RBC 0.04 H Nucleated RBC % (auto) 0.3 Sodium 137 Potassium 5.5 H Chloride 108 H Carbon Dioxide 19 L Anion Gap 10.0 BUN 65 H Creatinine 10.10 H* Est Cr Clr Drug Dosing 9.9 Est GFR ( Amer) 5.9 Est GFR (Non-Af Amer) 5.1 BUN/Creatinine Ratio 6.4 L Glucose 101 H Lactate 1.3 Calcium 9.8 Magnesium 2.6 H Total Bilirubin 0.4 AST 10 L ALT 38 Alkaline Phosphatase 66 Troponin I < 0.015 Total Protein 7.4 Albumin 3.8 Globulin 3.6 Albumin/Globulin Ratio 1.0 PG Care Time/CCT Total # of Minutes Spent Total Time Spent with Patient: Total time spent is greater than 50% in coordination of care (as documented) at patient's floor/unit and/or counseling patient: Coding Level of Care Code 33630 Inpt Consult Level 4 Diagnoses ESRD (end stage renal disease) on dialysis N18.6; Z99.2
[2019-09-21] MEDS ORDERED: predniSONE 5 MG TAB PO SCH (21:00)
[2019-09-21] MEDS ORDERED: NALOXONE HCL 0.4 MG/1 ML VIAL/CARP IV PRN (21:00)
[2019-09-21] MEDS ORDERED: LACTULOSE SYRUP 20 GM/30 ML UDC PO PRN (21:06)
[2019-09-21] MEDS: SODIUM CHLORIDE 0.9% 1000ML 1,000 ML IV SCH (21:58)
[2019-09-21] MEDS: SODIUM BICARBONATE 650 MG TAB PO SCH (21:59)
[2019-09-21] MEDS: AMLODIPINE BESYLATE 5 MG TAB PO SCH (21:59)
[2019-09-21] MEDS: ASPIRIN 81 MG ECTAB PO SCH (21:59)
[2019-09-21] MEDS: TAMSULOSIN HCL 0.4 MG CAP PO SCH (21:59)
[2019-09-21] MEDS: HEPARIN SOD 5,000 UNIT/0.5 ML VIAL SQ SCH (22:01)
[2019-09-21] MEDS: ZOLPIDEM TARTRATE 10 MG TAB PO SCH (22:19)
[2019-09-21] MEDS: predniSONE 20 MG TAB PO SCH (23:06)
[2019-09-22] MEDS ORDERED: PERFLUTREN LIPID MICROSPHERE (DEFINITY) IV ONE (08:01)
[2019-09-22 08:43] LABS: Prothrombin Time 10.2 Seconds (9.0-12.0)
[2019-09-22] MEDS ORDERED: HYDROmorphone INJ 0.5 MG/0.5 ML SYR IV STA (08:43)
--- NOTE | 2019-09-22 09:21 | Pharmacy Report ---
Pharmacy Abx Dose Short Note - Date of Service September 22, 2019 - Assessment & Plan Assessment 54 year old M receiving vancomycin and cefepime for treatment of gangrenous toe Day # 2 of antimicrobial therapy. Plan Vancomycin * Patient is peritoneal dialysis --- discussed with provider to give vancomycin 20 mg/kg load prior to PD tonight (patient receives nightly). It is recommended to wait around 4-6 hours after PD to obtain level. Plan to do that 09/22/2019 then also obtain level around 1800 to see if patient clears any vancomycin himself. * Random level of 21 mcg/mL is therapeutic for gangrenous toe * Goal trough level for gangrenous toe no osteomyelitis : 15 to 20 mcg/mL * Random level ordered for: 09/22/2019 at 1800 Cefepime * cefepime 1 gm IV daily for PD Pharmacy will continue to follow and will adjust dose/frequency as necessary. Thank you.
[2019-09-22 09:22] LABS: Calcium 8.9 mg/dl (8.5-10.1); Creatinine Clr Calc Pharmacy 10.2 ml/min; Est GFR (Non-African American) 5.2; Potassium 5.5 mmol/L (3.5-5.1)
[2019-09-22] MEDS: POLYETHYLENE (MIRALAX) 17 GM PACK PO SCH (09:54)
[2019-09-22] MEDS: HEPARIN SOD 5,000 UNIT/0.5 ML VIAL SQ SCH ×2 (09:54→21:18)
[2019-09-22] MEDS: SODIUM BICARBONATE 650 MG TAB PO SCH ×2 (09:55→21:19)
[2019-09-22] MEDS: lisinopriL 5 MG TAB PO SCH (09:55)
--- NOTE | 2019-09-22 10:08 | Nephrology Progress Note ---
Date of Service September 22, 2019 Assessment & Plan (1) ESRD (end stage renal disease) on dialysis: No complications with exchanges overnight. Catheter functioning well. Remains slightly hyperkalemic which mild metabolic acidosis. This has been chronic. Taking oral NaHCO3 replacement; I increased this to 1300 mg BID. Low potassium diet. Remains on low dose ACEi. BP reasonable. Volume status appropriate. Will plan additional UF for this evening. Orders for PD tonight have been entered into the EMR. No heparin with dialysis; no fibrin noted. Medications are appropriately dosed for PD including cefepime. Vancomycin dosing per pharmacy. Admission and Anticipated Discharge Date Admission Date: September 21, 2019 Subjective No acute events overnight. Pain persists. No fevers or chills. No complications with PD overnight. Effluent clear. Review of Systems Review of Systems: All systems reviewed & are unremarkable except as noted in HPI & below Physical Exam Constitutional: well developed; no acute distress Eyes: no scleral abnormality and no corneal abnormality ENMT: Mouth: no oral mucosal abnormality and oral mucous membranes not dry Neck: normal visual inspection and trachea midline Respiratory: normal respiratory effort Auscultation: lungs clear to auscultation bilaterally Cardiovascular: Rate/Rhythm: regular rate Heart Sounds: normal S1 and normal S2 Extremities: + AV fistula; no edema Gastrointestinal (Abdomen): Inspection/Auscultation: + abdomen distended Percussion/Palpation: abdomen soft; abdomen nontender PD exit site clean Musculoskeletal: Extremities: no cyanosis and no clubbing Skin: normal turgor; no lesions Neurologic: Motor/Sensory: no tremor and no asterixis Psychiatric: Orientation: alert and oriented x 3 Results & Data ([facility]) Vital Signs (Past 12 Hours) Vital Signs Temp Pulse Pulse Pulse Resp BP Pulse Ox 09/22/19 08:30 36.4 C L 66 16 09/22/19 07:00 36.4 C L 66 15 95 09/22/19 03:04 36.8 C 63 12 131/80 95 09/22/19 00:25 36.7 C 74 13 133/88 95 09/21/19 23:21 36.5 C 77 16 137/90 96 09/21/19 23:08 76 09/21/19 22:23 37 C 101 H 13 158/96 H 95 09/21/19 22:16 75 Laboratory Results Laboratory Results - last 24 hr 09/21/19 09/21/1920 15:40 15:40 15:40 WBC 14.58 H RBC 3.90 L Hgb 11.8 L Hct 37.1 L MCV 95.1 MCH 30.3 MCHC 31.8 L RDW Std Deviation 56.5 H RDW Coeff of Marcelino 16.3 H Plt Count 248 MPV 10.9 H Immature Gran % (Auto) 4.7 Neut % (Auto) 83.6 Lymph % (Auto) 5.0 [place] % (Auto) 5.4 Eos % (Auto) 0.8 Baso % (Auto) 0.5 Immature Gran # (Auto) 0.69 H Neut # (Auto) 12.18 H Lymph # (Auto) 0.73 L [place] # (Auto) 0.79 H Eos # (Auto) 0.11 Baso # (Auto) 0.08 Absolute Nucleated RBC 0.04 H Nucleated RBC % (auto) 0.3 PT INR Sodium 137 Potassium 5.5 H Chloride 108 H Carbon Dioxide 19 L Anion Gap 10.0 BUN 65 H Creatinine 10.10 H* Est Cr Clr Drug Dosing 9.9 Est GFR ( Amer) 5.9 Est GFR (Non-Af Amer) 5.1 BUN/Creatinine Ratio 6.4 L Glucose 101 H Lactate 1.3 Calcium 9.8 Magnesium 2.6 H Total Bilirubin 0.4 AST 10 L ALT 38 Alkaline Phosphatase 66 Troponin I < 0.015 Total Protein 7.4 Albumin 3.8 Globulin 3.6 Albumin/Globulin Ratio 1.0 Random Vancomycin 09/22/19 09/22/19 09/22/19 08:11 08:11 08:11 WBC RBC Hgb Hct MCV MCH MCHC RDW Std Deviation RDW Coeff of Marcelino Plt Count MPV Immature Gran % (Auto) Neut % (Auto) Lymph % (Auto) [place] % (Auto) Eos % (Auto) Baso % (Auto) Immature Gran # (Auto) Neut # (Auto) Lymph # (Auto) [place] # (Auto) Eos # (Auto) Baso # (Auto) Absolute Nucleated RBC Nucleated RBC % (auto) PT 10.2 INR 1.0 Sodium 140 Potassium 5.5 H Chloride 111 H Carbon Dioxide 20 L Anion Gap 9.0 BUN 70 H Creatinine 9.96 H* Est Cr Clr Drug Dosing 10.2 Est GFR ( Amer) 6.0 Est GFR (Non-Af Amer) 5.2 BUN/Creatinine Ratio 7.0 L Glucose 75 Lactate Calcium 8.9 Magnesium Total Bilirubin AST ALT Alkaline Phosphatase Troponin I Total Protein Albumin Globulin Albumin/Globulin Ratio Random Vancomycin 21.9 PG Care Time/CCT Total # of Minutes Spent Total Time Spent with Patient: Total time spent is greater than 50% in coordination of care (as documented) at patient's floor/unit and/or counseling patient: Coding Level of Care Code 50523 Subseq Hosp Care Lvl 3 Diagnoses ESRD (end stage renal disease) on dialysis N18.6; Z99.2
[2019-09-22] MEDS: predniSONE 20 MG TAB PO SCH ×2 (11:37→21:19)
--- NOTE | 2019-09-22 12:19 | Hospitalist Progress Note ---
Date of Service September 22, 2019 Assessment & Plan (1) Ischemic ulcer of toe of right foot: Painful right 2nd toe ischemic ulcer w/ dry gangrene - worsening over weeks/months. Suspect embolic phenomenon that caused the ischemia - pain in toe started acutely following a surgical procedure in May 2019. Needs amputation - failed conservative measures - to OR today with Dr Goodwin from [facility] Ortho. Remains on cefepime/vanco. echo performed to r/o thrombus - none seen. tele thus far w/o PAF. Regardless he will need amputation of the toe given the intractable pain and development of dry gangrene. cont dilaudid for pain control - adjust frequency and dose of demands on [employer]ER[employer]. I spoke with Dr Tineo from cardiology who will review his arterial duplex studies and see the patient in consult to determine if anything vascular is needed. Cont stress dose steroids in the setting of impending surgery today and the gangrene. (2) Gangrene of toe of right foot: right 2nd toe - see above (3) ESRD (end stage renal disease) on dialysis: on home peritoneal dialysis appreciate Dr Barreto's consult from [facility] nephrology who will provide PD management BMP in am volume status is appropriate today (4) Rheumatoid arthritis: prednisone-dependent. cont stress dose steroids with 20mg PO BID. typically is on 5mg BID at home. (5) Hypertension: cont home meds (6) History of nephrectomy, left: 2nd to RCC (7) GERD (gastroesophageal reflux disease): no symptoms at this time (8) Coronary artery disease: s/p heart cath at [facility] ~2010 was told it was normal has had stress tests since that have been negative no recent ischemic symptoms at home continue aspirin (9) DVT prophylaxis: heparin 5000 BID Admission and Anticipated Discharge Date Admission Date: September 21, 2019 Subjective patient's only complaint was that of ongoing severe 2nd toe pain, right foot. this is despite use of dilaudid [employer]ER[employer] through the night. requesting demand doses at least 3-4 times each hour without relief. no sedation from the dilaudid. "nothing touches the pain." had PD overnight w/o incident. denies new complaints. tele without a.fib overnight. Review of Systems Constitutional: no fever and no chills Respiratory: no dyspnea Cardiovascular: no chest pain Additional Comments: patient states he believes he had heart cath in 2010 at [facility] was told his arteries were clean; no intervention needed has had stress tests since then that have been normal Gastrointestinal: no abdominal pain Physical Exam Constitutional: well developed and well nourished; no acute distress and no altered mental status ENMT: external ear and nose normal, oropharynx normal Respiratory: normal respiratory effort, lungs clear to auscultation Cardiovascular: Rate/Rhythm: regular rate and regular rhythm Heart Sounds: normal S1 and normal S2; no murmur Vessels: femoral pulses present, posterior tibial pulses present, dorsalis pedis pulses present and popliteal pulses present; no JVD Extremities: + AV fistula; no edema Gastrointestinal (Abdomen): Inspection/Auscultation: + abdomen distended (With PD fluid) and normal bowel sounds Percussion/Palpation: abdomen soft; abdomen nontender and no hepatosplenomegaly PD catheter in place - left abdomen - clean Skin: right 2nd toe - ischemic ulcer w/ black appearance c/w dry gangrene; kary-ulcer erythema is improved today; still exquisitely tender to palpation; other toes right foot wnl Psychiatric: A+Ox3, euthymic affect Results & Data [facility] & [facility]) Vital Signs (Past 12 Hours) Vital Signs Temp Pulse Pulse Resp BP Pulse Ox 09/22/19 11:00 36.5 C 62 13 126/76 96 09/22/19 08:30 36.4 C L 66 16 09/22/19 07:00 36.4 C L 66 15 95 09/22/19 03:04 36.8 C 63 12 131/80 95 09/22/19 00:25 36.7 C 74 13 133/88 95 Laboratory Results Laboratory Results - last 24 hr 09/21/19 09/21/19 09/21/19 15:40 15:40 15:40 WBC 14.58 H RBC 3.90 L Hgb 11.8 L Hct 37.1 L MCV 95.1 MCH 30.3 MCHC 31.8 L RDW Std Deviation 56.5 H RDW Coeff of Marcelino 16.3 H Plt Count 248 MPV 10.9 H Immature Gran % (Auto) 4.7 Neut % (Auto) 83.6 Lymph % (Auto) 5.0 [place] % (Auto) 5.4 Eos % (Auto) 0.8 Baso % (Auto) 0.5 Immature Gran # (Auto) 0.69 H Neut # (Auto) 12.18 H Lymph # (Auto) 0.73 L [place] # (Auto) 0.79 H Eos # (Auto) 0.11 Baso # (Auto) 0.08 Absolute Nucleated RBC 0.04 H Nucleated RBC % (auto) 0.3 PT INR Sodium 137 Potassium 5.5 H Chloride 108 H Carbon Dioxide 19 L Anion Gap 10.0 BUN 65 H Creatinine 10.10 H* Est Cr Clr Drug Dosing 9.9 Est GFR ( Amer) 5.9 Est GFR (Non-Af Amer) 5.1 BUN/Creatinine Ratio 6.4 L Glucose 101 H Lactate 1.3 Calcium 9.8 Magnesium 2.6 H Total Bilirubin 0.4 AST 10 L ALT 38 Alkaline Phosphatase 66 Troponin I < 0.015 Total Protein 7.4 Albumin 3.8 Globulin 3.6 Albumin/Globulin Ratio 1.0 Random Vancomycin 09/22/19 09/22/19 09/22/19 08:11 08:11 08:11 WBC RBC Hgb Hct MCV MCH MCHC RDW Std Deviation RDW Coeff of Marcelino Plt Count MPV Immature Gran % (Auto) Neut % (Auto) Lymph % (Auto) [place] % (Auto) Eos % (Auto) Baso % (Auto) Immature Gran # (Auto) Neut # (Auto) Lymph # (Auto) [place] # (Auto) Eos # (Auto) Baso # (Auto) Absolute Nucleated RBC Nucleated RBC % (auto) PT 10.2 INR 1.0 Sodium 140 Potassium 5.5 H Chloride 111 H Carbon Dioxide 20 L Anion Gap 9.0 BUN 70 H Creatinine 9.96 H* Est Cr Clr Drug Dosing 10.2 Est GFR ( Amer) 6.0 Est GFR (Non-Af Amer) 5.2 BUN/Creatinine Ratio 7.0 L Glucose 75 Lactate Calcium 8.9 Magnesium Total Bilirubin AST ALT Alkaline Phosphatase Troponin I Total Protein Albumin Globulin Albumin/Globulin Ratio Random Vancomycin 21.9 PG Care Time/CCT Total # of Minutes Spent Total Time Spent with Patient: Total time spent is greater than 50% in coordination of care (as documented) at patient's floor/unit and/or counseling patient: Coding Level of Care Code 09925 Subseq Hosp Care Lvl 2 Diagnoses Ischemic ulcer of toe of right foot L97.519 Non-pressure ulcer stage: unspecified non-pressure ulcer stage Gangrene of toe of right foot I96 ESRD (end stage renal disease) on dialysis N18.6; Z99.2 Rheumatoid arthritis M06.9 Hypertension I10 History of nephrectomy, left Z90.5 GERD (gastroesophageal reflux disease) K21.9 Coronary artery disease I25.10 DVT prophylaxis Z29.9 (1) Ischemic ulcer of toe of right foot Non-pressure ulcer stage: unspecified non-pressure ulcer stage Qualified Code(s): L97.519 - Non-pressure chronic ulcer of other part of right foot with unspecified severity
[2019-09-22] MEDS: ONDANSETRON INJ 2 MG/ML 2 ML VIAL IV PRN ×2 (12:31→17:26)
--- NOTE | 2019-09-22 13:47 | Consultation Report ---
DATE OF CONSULTATION: 09/22/2019 CHIEF COMPLAINT: Gangrenous second toe, right foot. SUBJECTIVE: The patient is a 54-year-old male who has had ongoing problems with his right second toe for approximately the past 4 months. He states he was having a surgical procedure in May and when he awoke, he had severe pain in the right second toe. There is some question as well that he may have had an embolic event. [facility] and has been on antibiotics. More recently, the toe has become gangrenous and the patient was admitted to the hospital for further definitive care. An Orthopedics consult was asked for. PAST MEDICAL HISTORY: Significant for end-stage renal disease secondary to renal cell carcinoma, on home peritoneal dialysis. He also has a history of rheumatoid arthritis and hypertension. PHYSICAL EXAMINATION: On exam, the patient is lying in bed. He is alert and oriented, communicates appropriately. He states he is ready to "get this toe off" because he has been dealing with it for so long. The toe has dry, gangrenous, eschar on the dorsal and medial aspect of the second toe from approximately the DIP to the PIP joint. All the other toes are benign. He has no pain other than exquisite pain about the second toe. ASSESSMENT: Ischemic ulcer right second toe, now with dry gangrene. PLAN: Above discussed with the patient. Again, he is ready to have something definitive done to get this taken care of. He is tentatively scheduled for an amputation with Dr. Goodwin later this afternoon. Dr. Goodwin will speak to the patient preoperatively and proceed as indicated.
--- NOTE | 2019-09-22 14:36 | XCELERA ---
[id number]
--- NOTE | 2019-09-22 16:59 | Electrocardiogram Report ---
Test Reason : Blood Pressure : / mmHG Vent. Rate : 067 BPM Atrial Rate : 067 BPM P-R Int : 150 ms QRS Dur : 080 ms QT Int : 388 ms P-R-T Axes : 043 032 049 degrees QTc Int : 409 ms Sinus rhythm with Premature atrial complexes Otherwise normal ECG When compared with ECG of 18-SEP-2017 15:25, Premature atrial complexes are now Present Confirmed by Dinesh Will ([id number]) on 09/22/2019 4:59:05 PM Referred By: REFERRED SELF Confirmed By:Dinesh Will
--- NOTE | 2019-09-22 17:23 | Anesthesiology Consultation ---
Date of Service September 22, 2019 Assessment & Plan Chart Review Chart Review: Acceptable Risk for Surgery and Patient NOT seen in Pre Admission Testing Consults Requested none ASA ASA4 Proposed Anesthesia Anesthesia Type: General History Surgery Operation Date: 09/22/19 09:00 Proposed Procedures p Right 2nd Toe Amputation - Neo Goodwin DO Height/Weight Height: 6 ft Weight: 100.7 kg Allergies Allergy/AdvReac Type Severity Reaction Status Date / Time doxycycline Allergy Severe RASH Verified 09/21/19 17:43 oxycodone Allergy Severe Swelling Verified 09/21/19 17:43 of throat and itchiness hydrocodone Allergy Mild Rash Verified 09/21/19 17:43 Penicillins Allergy Mild RASH, Verified 09/21/19 17:43 HIVES, ITCHING Medications Home Medications Medication Instructions Recorded Confirmed Last Taken amlodipine 5 mg PO HS 07/04/18 09/21/19 02/22/19 21:30 aspirin 81 mg PO HS 07/04/18 09/21/19 02/22/19 21:30 ergocalciferol (vitamin D2) 50,000 units PO WK 07/04/18 09/21/19 02/22/19 20:00 acetaminophen [Tylenol Extra 1,000 mg PO TID PRN 08/12/18 09/21/19 Unknown Strength] clobetasol [Temovate] 1 applic TOPICAL BID PRN 08/12/18 09/21/19 Unknown lisinopril 5 mg tablet 5 mg PO QAM #90 tab 12/02/18 09/21/19 Unknown sodium bicarbonate 650 mg tablet 650 mg PO BID 05/18/19 09/21/19 Unknown gabapentin 300 mg capsule 300 mg PO HS PRN #90 cap 07/14/19 09/21/19 Unknown zolpidem 10 mg tablet 10 mg PO HS #30 tab 08/27/19 09/21/19 Unknown cephalexin 500 mg capsule 500 mg PO QID 09/14/19 09/21/19 Unknown ferric citrate [Auryxia] See Rx Instructions .ROUTE .COMPLEX 09/21/19 09/21/19 Unknown lactulose 30 ml PO BID PRN 09/21/19 09/21/19 Unknown prednisone 5 mg PO BID 09/21/19 09/21/19 Unknown tamsulosin 0.4 mg PO HS 09/21/19 09/21/19 Unknown Active Medications Generic Name Dose Route Start Last Admin Trade Name Freq PRN Reason Stop Dose Admin Amlodipine Besylate 5 mg 09/21/19 21:00 09/21/19 21:59 Norvasc PO 10/21/19 20:59 5 mg HS PAULA Administration Aspirin 81 mg 09/21/19 21:00 09/21/19 21:59 Ecotrin Ectab PO 10/21/19 20:59 Not Given HS PAULA Heparin Sodium (Porcine) 5,000 units 09/21/19 21:00 09/22/19 09:54 Heparin Sodium (Porcine) SQ 10/21/19 20:59 Not Given Q12 PAULA Hydromorphone HCl 30 mg 09/21/19 18:56 09/21/19 21:07 IV 10/05/19 18:55 30 mg PRN PRN Administration CONTINGENTS SUPERVISOR Pain Titration Protocol Sodium Chloride 1,000 mls @ 15 mls/hr 09/21/19 21:00 09/21/19 21:58 Nss 1000ml IV 10/05/19 21:00 15 mls/hr .Q24H PAULA Administration Lisinopril 5 mg 09/22/19 09:00 09/22/19 09:55 Zestril PO 10/22/19 08:59 5 mg QAM PAULA Administration Miscellaneous 1 ea 09/22/19 00:00 09/22/19 15:39 Order Awaiting Action N/A 10/22/19 00:00 Not Given QS PAULA Ondansetron HCl 4 mg 09/21/19 21:00 09/22/19 17:26 Zofran IV 10/21/19 20:59 4 mg Q6H PRN Administration Nausea Polyethylene Glycol 17 gm 09/22/19 09:00 09/22/19 09:54 Miralax Powder Packet PO 10/22/19 08:59 Not Given DAILY PAULA Prednisone 20 mg 09/21/19 21:00 09/22/19 11:37 Prednisone PO 10/21/19 20:59 20 mg BID PAULA Administration Tamsulosin HCl 0.4 mg 09/21/19 21:00 09/21/19 21:59 Flomax PO 10/21/19 20:59 0.4 mg HS PAULA Administration Zolpidem Tartrate 10 mg 09/21/19 21:00 09/21/19 22:19 Ambien PO 10/21/19 20:59 10 mg HS PAULA Administration NPO Date Last Intake of Fluids: 09/21/19 Time Last Intake of Fluids: 22:15 Date Last Intake of Solids: 09/21/19 Time Last Intake of Solids: 22:15 Past Medical History Medical History AV fistula LEFT ARM Avascular necrosis of bones of both hips Diverticulosis FSGS (focal segmental glomerulosclerosis) History of renal cell cancer Peritoneal dialysis catheter in place DOES DIALYSIS EVERY HS (FOLLOWED BY DR. TUCKER/NEPHROLOGY) Rheumatoid arthritis Exercise / Class Metabolic Activity III < 4 Walking/Shop/Light housework Past Family History Family History Brother Liver cirrhosis secondary to ALBA Family history of diabetes mellitus Father Brain tumor Coronary heart disease Hypertension Family history of diabetes mellitus Mother Liver cancer Hypertension Family history of diabetes mellitus Breast cancer Grandmother (Maternal) Stroke Sister Family history of diabetes mellitus Grandfather (Maternal) Family hx of colon cancer Past Surgical History Surgical History H/O hand surgery (~09/2018) Hilda 10/02/18 H/O hernia repair (~10/21/17) 10/20/2017. GETA. Grade 1 sujey. Escobar 2. 8.0 ETT. No issues. History of colonoscopy History of esophagogastroduodenoscopy (EGD) History of incisional hernia repair History of nephrectomy, left (2015) Due to Renal Cell Cancer Hx of abdominal surgery PERITONEAL CATHETER INSERTION + REVISION Hx of umbilical hernia repair (02/2019) S/P arteriovenous (AV) fistula creation S/P arteriovenous (AV) fistula repair MULTIPLE Status post insertion of hemodialysis catheter +MULTIPLE REVISIONS Past Anesthesia History No Hx of Anesthesia Complications and No Family Hx of Anesthesia Complications History of PONV No Hx of PONV and No Hx of Motion Sickness Social History Smoking Status: Never smoker Hx Alcohol Use: No Hx Substance Use: No substance use type: does not use Physical Exam Vital Signs Last Vital Signs Temp 37.2 C 09/22/19 16:29 Pulse 77 09/22/19 16:29 Resp 18 09/22/19 16:29 BP 134/81 09/22/19 16:29 Pulse Ox 93 09/22/19 16:29 Testing Laboratory Results 09/21/19 15:40 09/22/19 08:11 PT 10.2 Seconds (9.0-12.0) 09/22/19 08:11 INR 1.0 (0.9-1.1) 09/22/19 08:11 Electrocardiogram Date: 09/22/19 Findings: + NSR @ (at 65 w/PAC's) Echocardiogram Date: 09/22/19 EF: 60% LV Function: normal RWMA: + none Other Findings: + LVH (moderate to severe) Valvular Disease: + no significant valvular disease and + MR (mild)
--- NOTE | 2019-09-22 17:43 | Communication Note ---
Date of Service: September 22, 2019 Pt states he was tested for covid on 09/15/2019,and was negative.
--- NOTE | 2019-09-22 17:53 | Communication Note ---
Date of Service: September 22, 2019 Pt had H/D on 09/17/2019 and PD on 09/21/2019.
--- NOTE | 2019-09-22 17:55 | History & Physical Bridge Note ---
Date of Service September 22, 2019 History & Physical Bridge Note I have examined the patient, reviewed the History & Physical and in the interval since the performance of the History & Physical I have noted the following changes of clinical significance: Will require right second toe amputation in the operating room today.
[2019-09-22] MEDS ORDERED: ONDANSETRON INJ 2 MG/ML 2 ML VIAL ONE (17:56)
[2019-09-22] MEDS ORDERED: LIDOCAINE HCL 2% 2 ML VIAL/AMP(20MG/ML) INFIL ONE (17:56)
[2019-09-22] MEDS ORDERED: PROPOFOL IV EMULSION 10 MG/ML 20 ML VIAL IV ONE ×2 (17:56→18:48)
[2019-09-22] MEDS ORDERED: MIDAZOLAM HCL 1 MG/ML 2ML VIAL ONE ×2 (17:56→17:57)
[2019-09-22] MEDS ORDERED: fentaNYL citrate 100 MCG/2 ML VIAL ONE (17:56)
[2019-09-22] MEDS ORDERED: BACITRACIN INJ 50,000 UNIT VIAL ONE (17:57)
[2019-09-22] MEDS ORDERED: ROPIVACAINE 0.5% 5 MG/ML 30 ML VIAL ONE (17:57)
[2019-09-22] MEDS ORDERED: ATROPINE SULFATE 0.1 MG/ML 10ML SYR IV PRN (18:19)
[2019-09-22] MEDS ORDERED: fentaNYL citrate 100 MCG/2 ML VIAL IV PRN (18:19)
[2019-09-22] MEDS ORDERED: ePHEDrine sulfate 50 MG/ML AMP IV PRN (18:19)
[2019-09-22] MEDS ORDERED: ONDANSETRON INJ 2 MG/ML 2 ML VIAL IV PRN (18:19)
[2019-09-22] MEDS ORDERED: CEFEPIME 1,000 MG in SYRINGE 0 ML IV SCH (19:00)
--- NOTE | 2019-09-22 19:30 | Post Operative Brief Note ---
Immediate Post Op Note v1 Date of Surgery September 22, 2019 Pre & Post Diagnosis Operation Date: 09/22/19 09:00 Pre-Op Diagnosis: Right Second Toe Dry Gangrene, Ischemic Ulcer right foot second toe Post-Op Diagnosis: Right Second Toe Dry Gangrene, Ischemic Ulcer right foot second toe I identified the patient and participated in the time-out.: Yes Procedure Operation Date: 09/22/19 09:00 Actual Procedures p Right 2nd Toe Amputation(Right) - Neo Goodwin DO Surgeon Neo Goodwin DO Manager Furniture None Estimated Blood Loss 3 Findings Consistent with Post-Op Diagnosis Specimens Right second toe bone and tissue Anesthesia Type MAC Regional Complications none Disposition Accompanied Patient To Recovery: No Disposition: Recovery Room
--- NOTE | 2019-09-22 19:48 | Anesthesiology Progress Note ---
Date of Service September 22, 2019 Anesthesia Post Procedure Vital Signs Vital Signs: Temp Pulse Pulse Pulse Pulse Resp BP 09/22/19 19:40 36.7 C 58 L 13 09/22/19 19:30 36.1 C L 70 21 09/22/19 16:29 37.2 C 77 18 09/22/19 15:34 36.6 C 93 H 18 09/22/19 11:00 36.5 C 62 13 09/22/19 08:30 36.4 C L 66 16 09/22/19 07:00 36.4 C L 66 15 09/22/19 03:04 36.8 C 63 12 09/22/19 00:25 36.7 C 74 13 09/21/19 23:21 36.5 C 77 16 09/21/19 23:08 76 09/21/19 22:23 37 C 101 H 13 09/21/19 22:16 75 09/21/19 21:21 36.6 C 74 18 09/21/19 20:20 62 16 142/89 H 09/21/19 20:00 63 18 BP Pulse Ox 09/22/19 19:40 109/71 98 09/22/19 19:30 112/73 96 09/22/19 16:29 134/81 93 09/22/19 15:34 144/88 H 95 09/22/19 11:00 126/76 96 09/22/19 08:30 09/22/19 07:00 95 09/22/19 03:04 131/80 95 09/22/19 00:25 133/88 95 09/21/19 23:21 137/90 96 09/21/19 23:08 09/21/19 22:23 158/96 H 95 09/21/19 22:16 09/21/19 21:21 163/92 H 94 09/21/19 20:20 98 09/21/19 20:00 163/90 H 96 Pain Intensity Right 2nd Digit Foot: Pain Intensity: 8 Transfer of Care Handoff Completed per policy Notes Mental Status: alert / awake / arousable Patient Amnestic to Procedure: Yes Nausea / Vomiting: adequately controlled Pain: adequately controlled Airway Patency, RR, SpO2: stable & adequate BP & HR: stable & adequate Hydration State: stable & adequate Anesthetic Complications: no major complications apparent Notes: block working well in pacu
[2019-09-22] MEDS: TAMSULOSIN HCL 0.4 MG CAP PO SCH (21:18)
[2019-09-22] MEDS: ASPIRIN 81 MG ECTAB PO SCH (21:18)
[2019-09-22] MEDS: AMLODIPINE BESYLATE 5 MG TAB PO SCH (21:18)
--- NOTE | 2019-09-22 21:35 | Operative Report (OR) ---
DATE OF OPERATION: 09/22/2019 PREOPERATIVE DIAGNOSES: 1. Right second toe dry gangrene. 2. Ischemic ulcer, right second toe. POSTOPERATIVE DIAGNOSES: 1. Right second toe dry gangrene. 2. Ischemic ulcer, right second toe. PROCEDURE: Right second toe amputation. SURGEON: Neo Goodwin DO. WHIZZER: None. ANESTHESIA: MAC, regional. SPECIMENS: Bone and tissue, right second toe. DRAINS: None. COMPLICATIONS: None. BLOOD LOSS: 3 mL. PERTINENT HISTORY: This is a 54-year-old gentleman who developed dry gangrene and an ischemic ulcer of his right second toe. He had been treating this conservatively for an extended period of time with the wound care center; however, he had a recent procedure related to his peritoneal dialysis and then developed sudden worsening of his right second toe ischemic ulcer in addition to increased pain in the right second toe. The toe appeared to have an embolic event, which would not be amenable to any further conservative care and management. The patient was then scheduled for surgery as indicated. All potential risks, benefits, complications, alternatives, rehab potential for incomplete relief of symptoms, DVT, PE, , persistent pain, swelling, scarring, weakness, neurovascular injury, wound complications, need for further surgery or amputation were discussed with the patient. The patient decided to proceed with the procedure as indicated. DESCRIPTION OF PROCEDURE: The patient was taken to the operative suite and placed supine on the operating table. After review of consent and identification of proper operative site, the patient was sedated and the anesthesiologist then performed a regional block of the right lower extremity. Next, the right lower extremity tourniquet was applied high on the right thigh; however, the pneumatic tourniquet was not used during the case. Right lower extremity was then sterilely prepped and draped in usual fashion, elevated and exsanguinated with an Esmarch bandage. Esmarch tourniquet was then applied over sterile surgical towel at the level of the ankle. Next, a 15 blade scalpel was then used to make a full thickness racquet-shaped incision at the base of the right second toe allowing enough tissue for tissue flap closure. This was started on the dorsum of the second toe and extended circumferentially around the toe. Next, the dorsal incision was then expanded with a 15 blade scalpel. The extensor tendon was then cut with a 15 blade scalpel as well as the dorsal joint capsule of the second metatarsophalangeal joint. Next, as this was started, the toe was then held in plantar flexion with Ragnell rakes retracting soft tissue. Next, a circumferential disarticulation of the second metatarsophalangeal joint was performed by opening the joint capsule and then the soft tissues were freed in the plantar aspect of the second toe proximal phalanx. As the proximal phalanx was then skeletonized, the toe was then completed with resection and then passed off as specimen. Next, judicious use of electrocautery was used to cauterize any small bleeders and there was of note an embolic vessel on the plantar digital artery on the medial aspect of the second toe consistent with an embolism as suspected. The vessel was completely embolic from the base of the second toe extending distally. This was then resected and then sent as specimen as well in the specimen set. Next, the incision was copiously irrigated with sterile normal saline until clear and then full thickness skin closure was then performed with tissue flap distally with interrupted 3-0 nylon sutures in a combination of simple and vertical mattress sutures. Finally, a sterile compressive dressing was applied overwrapped with an Noi wrap. The tourniquet was released and the patient had a normal hyperemic response. He was awakened and then taken to recovery in stable condition. I attest to the content of the Intraoperative Record and any orders documented therein. Any exception s are noted below.
[2019-09-22] MEDS: ZOLPIDEM TARTRATE 10 MG TAB PO SCH (22:18)
[2019-09-22] MEDS ORDERED: Nursing to Pharmacy Communication SCH (22:45)
[2019-09-23] MEDS: SODIUM CHLORIDE 0.9% 1000ML 1,000 ML IV SCH (00:19)
[2019-09-23] MEDS: SODIUM BICARBONATE 650 MG TAB PO SCH ×2 (08:12→20:36)
[2019-09-23] MEDS: predniSONE 20 MG TAB PO SCH (08:12)
[2019-09-23] MEDS: lisinopriL 5 MG TAB PO SCH (08:12)
[2019-09-23] MEDS: POLYETHYLENE (MIRALAX) 17 GM PACK PO SCH (08:13)
[2019-09-23] MEDS: HEPARIN SOD 5,000 UNIT/0.5 ML VIAL SQ SCH ×2 (08:13→20:37)
--- NOTE | 2019-09-23 09:57 | Hospitalist Progress Note ---
Date of Service September 23, 2019 Assessment & Plan (1) Hyperkalemia: severe. level 7 today; was 5.5 yesterday. this is despite nightly PD. peaked T's on EKG. d/w Dr Barreto - give sodium bicarbonate 50meq IV x 1 now. give CaGluconate 1gm IV x 1 now. then urgent HD session via LUE AV fistula thereafter - coordinated by Dr Barreto. repeat K level following HD session. patient declining kayexalate. defer HD / PD management to Dr Barreto - appreciate his assistance. with EKG changes the hyperkalemia posed a threat to his life requiring urgent intervention. (2) Ischemic ulcer of toe of right foot: POD #1 s/p amputation of RIGHT 2nd toe 2nd to ischemic ulcer w/ dry gangrene. Suspect embolic phenomenon that caused the ischemia - pain in toe started acutely following a surgical procedure in May 2019. Dr Goodwin stated that it appeared that an embolus indeed blocked a digital artery leading to this ulcer. Patient had right brachiocephalic and SVC DVT in 03/2018. Took coumadin for at least 3 months. Can d/c cefepime/vanco. Change to clindamycin 300mg TID x 7 days. Culture from early September of 2nd toe with coag neg staph. echo performed to r/o thrombus - none seen. Unable to assess for PFO. tele thus far w/o PAF. Dr Tineo from cardiology reviewed his arterial duplex studies - no vessel that could be intervened on. Appreciate his consult. need for anticoagulation since this was likely an embolic event?? coumadin?? (3) Gangrene of toe of right foot: right 2nd toe - see above (4) ESRD (end stage renal disease) on dialysis: on home peritoneal dialysis appreciate Dr Barreto's consult from [facility] nephrology who will provide PD management (and HD management today due to high K) volume status acceptable but K is quite high - see above (5) Rheumatoid arthritis: prednisone-dependent. cont stress dose steroids but decrease to 15mg PO BID. typically is on 5mg BID at home. (6) Hypertension: cont home meds (7) History of nephrectomy, left: 2nd to RCC (8) GERD (gastroesophageal reflux disease): no symptoms at this time (9) Coronary artery disease: [facility] was told it was normal has had stress tests since that have been negative no recent ischemic symptoms at home continue aspirin (10) DVT prophylaxis: heparin 5000 BID considering systemic anticoagulation PT, OT evals requested home next 1-2 days? Admission and Anticipated Discharge Date Admission Date: September 21, 2019 Subjective patient's right foot pain is overall much better. he has been using the dilaudid BEATER TENDER frequently but states it doesn't really do anything for his pains. he is eating well; denies any dyspnea, cp or abd pain. no bowel movement since admission. tele normal overnight. Review of Systems Constitutional: no fever, no chills, no fatigue and no anorexia Respiratory: no cough and no dyspnea Cardiovascular: no chest pain Gastrointestinal: no abdominal pain Physical Exam Constitutional: well developed and well nourished; no acute distress and no altered mental status ENMT: external ear and nose normal, oropharynx normal Respiratory: normal respiratory effort, lungs clear to auscultation Cardiovascular: Rate/Rhythm: regular rate and regular rhythm Heart Sounds: normal S1 and normal S2; no murmur Vessels: femoral pulses present, posterior tibial pulses present, dorsalis pedis pulses present and popliteal pulses present; no JVD Extremities: + AV fistula (LUE); no edema Gastrointestinal (Abdomen): Inspection/Auscultation: + abdomen distended (With PD fluid) and normal bowel sounds Percussion/Palpation: abdomen soft; abdomen nontender and no hepatosplenomegaly PD catheter insertion site clean Musculoskeletal: right foot wrapped in dressings; all toes right foot - cap r efill < 2 sec Psychiatric: A+Ox3, euthymic affect Results & Data Results & Data ([facility]) Vital Signs (Past 12 Hours) Vital Signs Temp Pulse Pulse Resp BP Pulse Ox 09/23/19 08:30 36.7 C 94 H 18 09/23/19 07:28 36.6 C 96 H 20 122/77 94 09/23/19 04:22 36.5 C 63 20 106/70 94 09/23/19 01:48 71 09/22/19 23:00 36.7 C 62 19 144/82 H 94 Laboratory Results Laboratory Results - last 24 hr 09/22/19 09/23/19 20:36 08:20 Sodium Pending Potassium 7 Chloride Pending Carbon Dioxide Pending Anion Gap Pending BUN Pending Creatinine Pending Est Cr Clr Drug Dosing Pending Est GFR ( Amer) Pending Est GFR (Non-Af Amer) Pending BUN/Creatinine Ratio Pending Glucose Pending Calcium Pending Random Vancomycin 18.6 PG Care Time/CCT Total # of Minutes Spent Total Time Spent with Patient: Total time spent is greater than 50% in coordination of care (as documented) at patient's floor/unit and/or counseling patient: Coding Level of Care Code 89683 Subseq Hosp Care Lvl 3 Diagnoses Hyperkalemia E87.5 Ischemic ulcer of toe of right foot L97.519 Non-pressure ulcer stage: unspecified non-pressure ulcer stage Gangrene of toe of right foot I96 ESRD (end stage renal disease) on dialysis N18.6; Z99.2 Rheumatoid arthritis M06.9 Hypertension I10 History of nephrectomy, left Z90.5 GERD (gastroesophageal reflux disease) K21.9 Coronary artery disease I25.10 DVT prophylaxis Z29.9 (1) Ischemic ulcer of toe of right foot Non-pressure ulcer stage: unspecified non-pressure ulcer stage Qualified Code(s): L97.519 - Non-pressure chronic ulcer of other part of right foot with unspecified severity
[2019-09-23 10:50] LABS: BUN Creatinine Ratio 6.9 (10-20); Calcium 9.2 mg/dl (8.5-10.1); Est GFR (African American) 5.2; Est GFR (Non-African American) 4.5
[2019-09-23] MEDS ORDERED: SODIUM POLYSTYRENE SULFONATE 15G/60ML SUSP PO ONE (11:30)
[2019-09-23] MEDS ORDERED: SODIUM BICARB 8.4% INJ 50 MEQ/50 ML SYR IV ONE (11:45)
--- NOTE | 2019-09-23 11:46 | Nephrology Progress Note ---
Date of Service September 23, 2019 Assessment & Plan (1) ESRD (end stage renal disease) on dialysis: No complications with exchanges overnight. Catheter functioning well. Unfortunately clearance was poor and hyperkalemia and metabolic acidosis persist. IV HCO3 and calcium provided. I discussed the plan of care with Dr. Villalba and the HD nurse. An emergent HD treatment will be coordinated today for clearance in the setting of severe hyperkalemia. Sesar is take oral NaHCO3 replacement; I increased this to 1300 mg BID. Low potassium diet. Remains on low dose ACEi which can be held. BP reasonable. Volume status appropriate. Resume PD tonight. Admission and Anticipated Discharge Date Admission Date: September 21, 2019 Subjective Amputation performed without complications. Sesar stated that he felt well this morning. Pain control significantly improved. He expressed frustration regarding dietary restrictions but no other concerns. No complications with surgery yesterday. Minimal blood loss reported. No complications with PD overnight. POD#1 s/p amputation of right toe. Concern for embolic phenomena. Review of Systems Review of Systems: All systems reviewed & are unremarkable except as noted in HPI & below Physical Exam Constitutional: well developed; no acute distress Eyes: no scleral abnormality and no corneal abnormality ENMT: Mouth: no oral mucosal abnormality and oral mucous membranes not dry Neck: normal visual inspection and trachea midline Respiratory: normal respiratory effort Auscultation: lungs clear to auscultation bilaterally Cardiovascular: Rate/Rhythm: regular rate Heart Sounds: normal S1, normal S2 and + murmur Extremities: + AV fistula; no edema Gastrointestinal (Abdomen): Inspection/Auscultation: abdomen not distended Percussion/Palpation: abdomen soft; abdomen nontender PD catheter exit site clear Musculoskeletal: Extremities: no cyanosis and no clubbing R foot dressing CDI Skin: normal turgor; no lesions Neurologic: Motor/Sensory: no tremor and no asterixis Psychiatric: Orientation: alert and oriented x 3 Results & Data ([facility]) Vital Signs (Past 12 Hours) Vital Signs Temp Pulse Pulse Resp BP Pulse Ox 09/23/19 10:00 63 09/23/19 08:30 36.7 C 94 H 18 09/23/19 07:28 36.6 C 96 H 20 122/77 94 09/23/19 04:22 36.5 C 63 20 106/70 94 09/23/19 01:48 71 Laboratory Results Laboratory Results - last 24 hr 09/22/19 09/23/19 20:36 08:20 Sodium 138 Potassium 7.0 H* D Chloride 108 H Carbon Dioxide 19 L Anion Gap 12.0 H BUN 78 H Creatinine 11.20 H* D Est Cr Clr Drug Dosing 9.0 Est GFR ( Amer) 5.2 Est GFR (Non-Af Amer) 4.5 BUN/Creatinine Ratio 6.9 L Glucose 115 H Calcium 9.2 Random Vancomycin 18.6 PG Care Time/CCT Total # of Minutes Spent Total Time Spent with Patient: Total time spent is greater than 50% in coordination of care (as documented) at patient's floor/unit and/or counseling patient: Coding Level of Care Code 60616 Subseq Hosp Care Lvl 3 Diagnoses ESRD (end stage renal disease) on dialysis N18.6; Z99.2
[2019-09-23] MEDS ORDERED: CALCIUM GLUCONATE 10% 1,000 MG in SODIUM CHLORIDE 0.9% 50 ML IV ONE (12:15)
--- NOTE | 2019-09-23 13:21 | Vascular Medicine Consultation ---
Date of Consultation September 23, 2019 Assessment & Plan (1) PAD (peripheral artery disease): 2. Rt 2nd digit necrotic toe post amputation 3. ESRD on peritoneal dialysis 4. FSGS, post LT nephrectomy 5. Hypertension 6. LVH 7. Psoriatic arthritis No clear source of emboli noted on ultrasound. Nothing to suggest inflow disease and no evidence of high-grade or aneurysmal disease from iliacs to popliteal arteries. No obvious high-grade tibial vessel stenosis. Toe pressures suggestive of severe small vessel disease. With ultrasound findings suspect unlikely to have significant PAD where endovascular intervention would change future risk of recurrent embolic events. Still with patient's significant event feel reasonable to definitively evaluate arteries with angiogram. Patient reluctant to do so in the setting of his kidney function. Will discuss further with Dr. Barreto but if patient declines do not feel that is unreasonable. In terms of other embolic sources nothing remarkable on telemetry. Would consider extended ambulatory monitoring. Agree with antiplatelet therapy with aspirin. In the setting of PAD and ischemic event would consider long-term PAD dose Xarelto 2.5 mg twice daily. History of Present Illness Attending Physician: Gualberto Maya History of Present Illness Mr. Hernandez is a very pleasant 54-year-old man seen today in the setting of suspected small vessel PAD and gangrenous second digit on his right foot post amputation day 1. Prior medical history remarkable for end-stage renal disease on peritoneal dialysis secondary to FSGS and left nephrectomy for cancer, hypertension, diet- controlled diabetes, Ruvalcaba, obesity, psoriatic arthritis, AVN of the hips and history of chronic steroid use. He is a lifelong non-smoker. No prior history of cardiac or vascular inventions. Right second toe pain began May 29 while admitted for replacement of peritoneal dialysis catheter. Later developed ulcer over second toe with progressive gangrene. Seen by wound clinic 1 week ago. Referred to ED on 09/20 due to refractory toe pain. Underwent amputation with Dr. Goodwin yesterday which was uncomplicated. Recent cardiovascular testing: Arterial duplex 09/17/2019: ABIs noncompressible, left TBI unobtainable, right TBI 0.42 (62 mmHg). <49% stenosis throughout bilateral lower extremity arterial system. 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 APPRENTICE without high-grade stenosis Echo 09/22/2019: EF 60-65, moderate to severe LVH, mild MR Allergies Allergy/AdvReac Type Severity Reaction Status Date / Time doxycycline Allergy Severe RASH Verified 09/21/19 17:43 oxycodone Allergy Severe Swelling Verified 09/21/19 17:43 of throat and itchiness hydrocodone Allergy Mild Rash Verified 09/21/19 17:43 Penicillins Allergy Mild RASH, Verified 09/21/19 17:43 HIVES, ITCHING Home Medications Home Medications Medication Instructions Recorded Confirmed Type amlodipine 5 mg PO HS 07/04/18 09/21/19 History aspirin 81 mg PO HS 07/04/18 09/21/19 History ergocalciferol (vitamin D2) 50,000 units PO WK 07/04/18 09/21/19 History acetaminophen [Tylenol Extra 1,000 mg PO TID PRN 08/12/18 09/21/19 History Strength] clobetasol [Temovate] 1 applic TOPICAL BID PRN 08/12/18 09/21/19 History lisinopril 5 mg tablet 5 mg PO QAM #90 tab 12/02/18 09/21/19 Rx sodium bicarbonate 650 mg tablet 650 mg PO BID 05/18/19 09/21/19 History gabapentin 300 mg capsule 300 mg PO HS PRN #90 cap 07/14/19 09/21/19 Rx zolpidem 10 mg tablet 10 mg PO HS #30 tab 08/27/19 09/21/19 Rx cephalexin 500 mg capsule 500 mg PO QID 09/14/19 09/21/19 History ferric citrate [Auryxia] See Rx Instructions .ROUTE .COMPLEX 09/21/19 09/21/19 History lactulose 30 ml PO BID PRN 09/21/19 09/21/19 History prednisone 5 mg PO BID 09/21/19 09/21/19 History tamsulosin 0.4 mg PO HS 09/21/19 09/21/19 History Patient History Medical History AV fistula LEFT ARM Avascular necrosis of bones of both hips Diverticulosis FSGS (focal segmental glomerulosclerosis) History of renal cell cancer Peritoneal dialysis catheter in place DOES DIALYSIS EVERY HS (FOLLOWED BY DR. TUCKER/NEPHROLOGY) Rheumatoid arthritis Surgical History H/O hand surgery (~09/2018) Hilda 10/02/18 H/O hernia repair (~10/21/17) 10/20/2017. GETA. Grade 1 view. Escobar 2. 8.0 ETT. No issues. History of colonoscopy History of esophagogastroduodenoscopy (EGD) History of incisional hernia repair History of nephrectomy, left (2015) Due to Renal Cell Cancer Hx of abdominal surgery PERITONEAL CATHETER INSERTION + REVISION Hx of umbilical hernia repair (02/2019) S/P arteriovenous (AV) fistula creation S/P arteriovenous (AV) fistula repair MULTIPLE Status post insertion of hemodialysis catheter +MULTIPLE REVISIONS Family History Brother Liver cirrhosis secondary to RUVALCABA Family history of diabetes mellitus Father Brain tumor Coronary heart disease Hypertension Family history of diabetes mellitus Mother Liver cancer Hypertension Family history of diabetes mellitus Breast cancer Grandmother (Maternal) Stroke Sister Family history of diabetes mellitus Grandfather (Maternal) Family hx of colon cancer Social History Preferred Language: [place] Communication Ability: Effective Visual Impairment: Diminished Hearing Ability: Normal Shoe Salesman Required: No Beliefs That Will Affect Care: None marital status: Current Living Situation: Spouse Current Living Situation Comment: lives with and 2 kids (13, 10) current occupational status: disabled 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[employer], 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, 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 other: lives in [place] Feels Safe at Home: Yes Smoking Status: Never smoker Second Hand Exposure: No ; Hx Alcohol Use: No Hx Substance Use: No Childhood Exposure to Second-Hand Smoke: Yes caffeine: No during the past year weight has: decreased > 10 lbs Dental Care, Regularly: Yes Physical Activity Frequency: 1-2 Times per Week Physical Activity Frequency Comment: walking Seatbelt Use: always Sunscreen Use: No Review of Systems Review of Systems: All systems reviewed & are unremarkable except as noted in HPI & below Physical Exam Physical Exam: General: Comfortable, no acute distress Eyes: Sclerae anicteric, extraocular movements intact HENT: Oropharynx clear mucous membranes moist Lungs: Clear to auscultation bilaterally Cardiac: Regular rate and rhythm, no murmurs Abdomen: Soft, mildly distended, PD catheter in place without surrounding erythema Neuro: Nonfocal Psych: Alert orient x3, normal affect and mood Extremities/Vascular: -- 2+ radial bilaterally --2+ DP and PT pulses on left, normal capillary refill Distal right lower extremity dressed post amputation, slightly diminished capillary refill in first and third digit on right Results & Data Vital Signs (Past 12 Hours) Vital Signs Temp Pulse Pulse Resp BP BP Pulse Ox 09/23/19 11:54 97.7 F 71 18 191/68 H 93 09/23/19 10:00 63 09/23/19 08:30 98.1 F 94 H 18 09/23/19 07:28 97.9 F 96 H 20 122/77 94 09/23/19 04:22 97.7 F 63 20 106/70 94 09/23/19 01:48 71 PG Care Time/CCT Total # of Minutes Spent Total Time Spent with Patient: Total time spent is greater than 50% in coordination of care (as documented) at patient's floor/unit and/or counseling patient: Coding Level of Care Code 03406 Inpt Consult Level 4 Diagnoses PAD (peripheral artery disease) I73.9
[2019-09-23] MEDS: HYDROmorphone HCL 2 MG TAB PO PRN ×2 (17:08→22:32)
[2019-09-23] MEDS ORDERED: HYDROmorphone INJ 1 MG/ML SYRINGE IV STA (17:20)
[2019-09-23] MEDS: GABAPENTIN 100 MG CAP PO SCH ×2 (18:03→20:37)
--- NOTE | 2019-09-23 18:11 | Orthopedic Progress Note ---
Date of Service September 23, 2019 Assessment & Plan (1) Ischemic ulcer of toe of right foot: Status post amputation of right foot second toe Postoperative day #1 DVT prophylaxis: SCDs, teds, heparin subcu and 81 mg aspirin Partial weightbearing right lower extremity weight through heel PT/OT Ice and elevate A.m. labs see above Admission and Anticipated Discharge Date Admission Date: September 21, 2019 Subjective Post Operative Progress Note Patient seen sitting up in bed, patient just returned from hemodialysis, complaining of pain to right foot, feels the block is now worn off. Currently receiving pain medication. No acute issues overnight. Denies F/C/N/V/SOB/CP. Review of Systems Review of Systems: All systems reviewed & are unremarkable except as noted in HPI & below Constitutional: as per Subjective / HPI Physical Exam Physical Exam: RLE NVSI +EHL/FHL/TA/GS SILT grossly, +2 DP pulse, compartments soft NT, dressing cdi. Constitutional: WD/WN, vitals as above Results & Data ([facility]) Vital Signs (Past 12 Hours) Vital Signs Temp Pulse Pulse Pulse Resp BP BP 09/23/19 17:53 36.6 C 80 191/68 H 09/23/19 17:35 72 09/23/19 17:17 36.5 C 77 18 09/23/19 16:20 36.6 C 88 09/23/19 16:00 82 134/94 09/23/19 15:40 80 148/85 H 09/23/19 15:20 68 163/106 H 09/23/19 15:00 74 143/81 H 09/23/19 14:40 66 140/106 H 09/23/19 14:20 70 149/99 H 09/23/19 14:05 36.6 C 73 09/23/19 11:54 36.5 C 71 18 191/68 H 09/23/19 10:00 63 09/23/19 08:30 36.7 C 94 H 18 09/23/19 07:28 36.6 C 96 H 20 BP Pulse Ox 09/23/19 17:53 160/90 H 09/23/19 17:35 09/23/19 17:17 150/87 H 94 09/23/19 16:20 142/85 H 09/23/19 16:00 09/23/19 15:40 09/23/19 15:20 09/23/19 15:00 09/23/19 14:40 09/23/19 14:20 09/23/19 14:05 09/23/19 11:54 93 09/23/19 10:00 09/23/19 08:30 09/23/19 07:28 122/77 94 Laboratory Results 09/23/19 09/22/19 Range/Units 08:20 20:36 Sodium 138 (136-145) mmol/L Potassium 7.0 H* D (3.5-5.1) mmol/L Chloride 108 H (98-107) mmol/L Carbon Dioxide 19 L (21-32) mmol/L Anion Gap 12.0 H (3-11) BUN 78 H (7-18) mg/dl Creatinine 11.20 H* D (0.6-1.4) mg/dl Est Cr Clr Drug Dosing 9.0 ml/min Est GFR ( Amer) 5.2 Est GFR (Non-Af Amer) 4.5 BUN/Creatinine Ratio 6.9 L (10-20) Glucose 115 H (70-99) mg/dl Calcium 9.2 (8.5-10.1) mg/dl Random Vancomycin 18.6 mcg/ml (1) Ischemic ulcer of toe of right foot Non-pressure ulcer stage: unspecified non-pressure ulcer stage Qualified Code(s): L97.519 - Non-pressure chronic ulcer of other part of right foot with unspecified severity
[2019-09-23 19:04] LABS: Thyroid Stimulating Hormone 1.14 uIu/ml (0.300-4.500)
[2019-09-23] MEDS: LACTOBACILLUS ACIDOPHILUS (FLORANEX) TAB PO SCH (19:36)
[2019-09-23 19:49] LABS: Potassium 4.8 mmol/L (3.5-5.1)
[2019-09-23] MEDS: ASPIRIN 81 MG ECTAB PO SCH (20:36)
[2019-09-23] MEDS: predniSONE 5 MG TAB PO SCH (20:36)
[2019-09-23] MEDS: TAMSULOSIN HCL 0.4 MG CAP PO SCH (20:36)
[2019-09-23] MEDS: ZOLPIDEM TARTRATE 10 MG TAB PO SCH (20:36)
[2019-09-23] MEDS: AMLODIPINE BESYLATE 5 MG TAB PO SCH (20:36)
[2019-09-23] MEDS: CLINDAMYCIN HCL 150 MG CAP PO SCH (20:36)
[2019-09-23] MEDS: GABAPENTIN 300 MG CAP PO PRN (20:36)
[2019-09-24] MEDS: ACETAMINOPHEN 500 MG TAB PO PRN ×3 (01:09→15:26)
[2019-09-24] MEDS: HYDROmorphone HCL 2 MG TAB PO PRN (04:34)
--- NOTE | 2019-09-24 05:59 | Electrocardiogram Report ---
Test Reason : Blood Pressure : / mmHG Vent. Rate : 072 BPM Atrial Rate : 072 BPM P-R Int : 152 ms QRS Dur : 082 ms QT Int : 370 ms P-R-T Axes : 042 027 059 degrees QTc Int : 405 ms Sinus rhythm with Premature atrial complexes Otherwise normal ECG When compared with ECG of 22-SEP-2019 09:37, No significant change was found Confirmed by Dinesh Will ([id number]) on 09/24/2019 5:59:23 AM Referred By: REFERRED SELF Confirmed By:Dinesh Will
[2019-09-24 07:55] LABS: Hemoglobin 10.5 g/dL (14.0-18.0); Mean Corpuscular Hemoglobin 29.7 pg (25-34); Mean Corpuscular Hgb Conc 30.9 g/dL (32-36); Mean Corpuscular Volume 96.3 fL (80-100); Mean Platelet Volume 10.9 fL (7.4-10.4); Platelet Count 212 K/uL (130-400); RDW Coefficient of Variation 16.6 % (11.5-14.5); RDW Standard Deviation 57.5 fL (36.4-46.3); Red Blood Count 3.53 M/uL (4.7-6.1); White Blood Count 11.36 K/uL (4.8-10.8)
[2019-09-24] MEDS: SODIUM BICARBONATE 650 MG TAB PO SCH (08:05)
[2019-09-24] MEDS: GABAPENTIN 100 MG CAP PO SCH (08:05)
[2019-09-24] MEDS: LACTOBACILLUS ACIDOPHILUS (FLORANEX) TAB PO SCH ×2 (08:07→12:04)
[2019-09-24] MEDS: HEPARIN SOD 5,000 UNIT/0.5 ML VIAL SQ SCH ×2 (08:08→08:15)
[2019-09-24] MEDS: CLINDAMYCIN HCL 150 MG CAP PO SCH ×2 (08:08→14:04)
[2019-09-24] MEDS: GABAPENTIN 300 MG CAP PO PRN (08:08)
[2019-09-24] MEDS: lisinopriL 5 MG TAB PO SCH (08:09)
[2019-09-24] MEDS: POLYETHYLENE (MIRALAX) 17 GM PACK PO SCH (08:09)
[2019-09-24] MEDS: predniSONE 5 MG TAB PO SCH (08:09)
[2019-09-24 08:39] LABS: Albumin Level 3.4 gm/dl (3.4-5.0); BUN Creatinine Ratio 7.1 (10-20); Calcium 9.5 mg/dl (8.5-10.1); Creatinine Clr Calc Pharmacy 11.7 ml/min; Est GFR (African American) 7.2; Est GFR (Non-African American) 6.2; Potassium 5.6 mmol/L (3.5-5.1)
[2019-09-24] MEDS ORDERED: PATIROMER CALCIUM SORBITEX 8.4 GM PACK PO ONE (08:45)
--- NOTE | 2019-09-24 08:50 | Nephrology Progress Note ---
Date of Service September 24, 2019 Assessment & Plan (1) ESRD (end stage renal disease) on dialysis: IHD provided yesterday for management of hyperkalemia. Clearance on PD slightly below goal. May need to resume daytime dwell and exchange if Sesar remains inpatient. Attempted to achieve adequate clearance on cycler overnight but this has not been ideal. Potassium remains slightly high. Patiromer will be provided today for additional clearance. Low potassium diet. Overall, Sesar feels good. UF reasonable. Volume status controlled. BP acceptable. No need for additional HD today. Resume NCCPD tonight. Sun will be provided QAC while inpatient for hyperphosphatemia. Resume Auryxia post discharge. Medications are appropriately dosed for kidney dysfunction. Admission and Anticipated Discharge Date Admission Date: September 21, 2019 Subjective No acute events overnight. Tolerated IHD yesterday for additional clearance. Adequate Qb via AVF. PD overnight without complications. No fevers or chills. Continues to have concerns regarding pain control. Breathing comfortably. Denies fluid retention. Review of Systems Review of Systems: All systems reviewed & are unremarkable except as noted in HPI & below Physical Exam Constitutional: well developed; no acute distress Eyes: no scleral abnormality and no corneal abnormality ENMT: Mouth: no oral mucosal abnormality and oral mucous membranes not dry Neck: normal visual inspection and trachea midline Respiratory: normal respiratory effort Auscultation: lungs clear to auscultation bilaterally Cardiovascular: Rate/Rhythm: regular rate Heart Sounds: normal S1, normal S2 and + murmur Extremities: + AV fistula; no edema Gastrointestinal (Abdomen): Inspection/Auscultation: abdomen not distended Percussion/Palpation: abdomen soft; abdomen nontender PD catheter exit site clean Musculoskeletal: Extremities: no cyanosis and no clubbing Skin: normal turgor; no lesions Neurologic: Motor/Sensory: no tremor and no asterixis Psychiatric: Orientation: alert and oriented x 3 Results & Data ([facility]) Vital Signs (Past 12 Hours) Vital Signs Temp Pulse Pulse Resp BP BP Pulse Ox 09/24/19 08:00 36.6 C 61 132/83 09/24/19 07:36 36.6 C 61 17 132/83 96 09/24/19 07:10 57 L 09/24/19 04:25 36.6 C 75 19 138/84 95 09/23/19 23:15 36.7 C 78 19 147/85 H 90 06/10/20 23:00 84 Laboratory Results Laboratory Results - last 24 hr 09/23/19 09/23/19 09/23/19 08:20 18:20 18:20 WBC RBC Hgb Hct MCV MCH MCHC RDW Std Deviation RDW Coeff of Marcelino Plt Count MPV Sodium 138 Potassium 7.0 H* D 4.8 D Chloride 108 H Carbon Dioxide 19 L Anion Gap 12.0 H BUN 78 H Creatinine 11.20 H* D Est Cr Clr Drug Dosing 9.0 Est GFR ( Amer) 5.2 Est GFR (Non-Af Amer) 4.5 BUN/Creatinine Ratio 6.9 L Glucose 115 H Calcium 9.2 Phosphorus Albumin Vitamin B12 391 TSH 1.140 09/24/19 09/24/19 07:36 07:36 WBC 11.36 H RBC 3.53 L Hgb 10.5 L Hct 34.0 L MCV 96.3 MCH 29.7 MCHC 30.9 L RDW Std Deviation 57.5 H RDW Coeff of Marcelino 16.6 H Plt Count 212 MPV 10.9 H Sodium 142 Potassium 5.6 H D Chloride 107 Carbon Dioxide 26 Anion Gap 9.0 BUN 62 H Creatinine 8.62 H* D Est Cr Clr Drug Dosing 11.7 Est GFR ( Amer) 7.2 Est GFR (Non-Af Amer) 6.2 BUN/Creatinine Ratio 7.1 L Glucose 99 Calcium 9.5 Phosphorus Pending Albumin 3.4 Vitamin B12 TSH PG Care Time/CCT Total # of Minutes Spent Total Time Spent with Patient: Total time spent is greater than 50% in coordination of care (as documented) at patient's floor/unit and/or counseling patient: Coding Level of Care Code 32707 Subseq Hosp Care Lvl 3 Diagnoses ESRD (end stage renal disease) on dialysis N18.6; Z99.2
[2019-09-24] MEDS ORDERED: HYDROmorphone HCL 2 MG TAB PO PRN (11:33)
[2019-09-24] MEDS ORDERED: SEVELAMER HCL 800 MG TABLET PO SCH (12:00)
--- NOTE | 2019-09-24 14:42 | Orthopedic Progress Note ---
Date of Service September 24, 2019 Assessment & Plan (1) Ischemic ulcer of toe of right foot: Status post amputation of right foot second toe Postoperative day #2 DVT prophylaxis: SCDs, teds, heparin subcu and 81 mg aspirin Partial weightbearing right lower extremity weight through heel PT/OT Ice and elevate Dressing changed by myself today, plan for daily, dry dressing changes. Ortho will sign off at this time. F/u with Dr. Goodwin in 12-14 days post operatively. Can call [phone] for an appointment. Admission and Anticipated Discharge Date Admission Date: September 21, 2019 Subjective Patient seen resting in bed, comfortable. No acute issues, pain controlled. Denies chest pain, sob, dizziness, fever, chills. Review of Systems Review of Systems: All systems reviewed & are unremarkable except as noted in HPI & below Physical Exam Physical Exam: Right foot dressing c/d/i, this was removed. Incision appears c/d/i, small amount of blood drainage, no purulence. No erythema noted. Distally sensation and n/v status intact. No calf tender, toes are mobile. Constitutional: well developed and well nourished; no acute distress Results & Data ([facility]) Vital Signs (Past 12 Hours) Vital Signs Temp Pulse Pulse Pulse Resp BP BP 09/24/19 11:59 36.6 C 76 61 17 132/83 138/84 09/24/19 08:00 36.6 C 61 132/83 09/24/19 07:36 36.6 C 61 17 132/83 09/24/19 07:10 57 L 09/24/19 04:25 36.6 C 75 19 138/84 Pulse Ox 09/24/19 11:59 96 09/24/19 08:00 09/24/19 07:36 96 09/24/19 07:10 09/24/19 04:25 95 (1) Ischemic ulcer of toe of right foot Non-pressure ulcer stage: with necrosis of muscle Qualified Code(s): L97.513 - Non-pressure chronic ulcer of other part of right foot with necrosis of muscle
--- NOTE | 2019-09-24 15:52 | Discharge Summary ---
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 The toe has been a problem since May 292019. He initially had a blister on the right 2nd toe. The blister ultimately popped in June and he was dressing the toe with topical antibiotics and dressings. He has been [facility] over the last few weeks. This is also the time period in which the pain has gotten much worse. The pain is constant but worse at night. He has a hard time weight-bearing because of the pain. Using tramadol prn for pain without relief. No drainage. The toe is black in appearance. This has been present since June but getting worse. No obvious odor. No fevers. He takes chronic prednisone for rheumatoid arthritis - 5mg BID. Been on prednisone for 12+ months. 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 Has been on dialysis for about 3-[address] Barreto from [facility] nephrology. Principal Diagnosis right 2nd toe ischemic ulcer/dry gangrene s/p amputation Discharge Exam Constitutional well developed and well nourished; no acute distress and no altered mental status ENMT external ear and nose normal, oropharynx normal Respiratory normal respiratory effort, lungs clear to auscultation Cardiovascular Rate/Rhythm: regular rate and regular rhythm Heart Sounds: normal S1 and normal S2; no murmur Vessels: posterior tibial pulses present and dorsalis pedis pulses present; no JVD Extremities: + AV fistula (LUE); no edema Gastrointestinal (Abdomen) Inspection/Auscultation: + abdomen distended (With PD fluid) and normal bowel sounds Percussion/Palpation: abdomen soft; abdomen nontender and no hepatosplenomegaly PD catheter - clean, dry Musculoskeletal right foot wrapped in dressings; dressings clean, dry; no bleeding Psychiatric A+Ox3, euthymic affect Discharge Data Allergies Allergy/AdvReac Type Severity Reaction Status Date / Time doxycycline Allergy Severe RASH Verified 09/21/19 17:43 oxycodone Allergy Severe Swelling Verified 09/21/19 17:43 of throat and itchiness hydrocodone Allergy Mild Rash Verified 09/21/19 17:43 Penicillins Allergy Mild RASH, Verified 09/21/19 17:43 HIVES, ITCHING Consultations Consult Nephrology - Xander aBrreto DO Consult Orthopedic Surgery - Sajan Goodwin DO Consult Cardiology - Finn Tineo MD Consult Patient Services Routine PT, OT Procedures Performed Operation Date: 09/22/19 09:00 Actual Procedures p Right 2nd Toe Amputation(Right) - Neo Goodwin DO Ordered Studies 09/21/19 US arterial duplex LE RT Stat IMPRESSION: 1. Triphasic waveforms are noted above the level of the knee. 2. No arterial occlusion or significantly elevated peak systolic velocities to suggest high-grade stenosis. 09/22/19 US - OR guided needle placement Echocardiogram - no evidence of thrombus; EF 60-65%. Moderate LVH. NO regional wall motion abnormalities. Hospital Course (1) Ischemic ulcer of toe of right foot: Patient underwent amputation of RIGHT 2nd toe by Dr Sajan Goodwin, [facility], due to ischemic ulcer w/ dry gangrene. Suspect embolic phenomenon that caused the ischemia - pain in toe started acutely following a surgical procedure in May 2019. Dr Goodwin stated that it appeared that an embolus indeed blocked a digital artery leading to this ulcer. Patient was initially treated with IV cefepime/vancomycin for his right 2nd toe ulceration/gangrene. Following amputation he was transitioned to oral clindamycin TID. He will take such for 6 additional days post-discharge along with probiotics. Of note - patient had a toe culture from early September showing coag negative staph. In light of the suspected embolic etiology of his ulcer he underwent echocardiogram. Echo did not show thrombus. ASD was not seen but could not rule out PFO. Telemetry did not reveal any a.fib/flutter. Patient had right brachiocephalic and SVC DVT in 03/2018. He took coumadin for 6 months. Given his prior DVT event, along with concern that his toe ulcer/gangrene was due to an embolus, he was initiated on coumadin daily. He received his first dose of 5mg on day of discharge. Optimal duration of coumadin is uncertain. At minimum would treat for 6 months but indefinite use could be considered since this would be his 2nd clotting event. He will have an INR in 2 days post-discharge, then at 4 days post-discharge. He was discharged on 5mg/day. Lastly, he will need every other day dressing changes to right foot. Home health was arranged for such. He will see Dr Goodwin in the orthopedic clinic 1-2 weeks after discharge. Due to allergies to hydrocodone and oxycodone he was given a small number of oral dilaudid for post-op pain control at home. He was also initiated on gabapentin 100mg BID with instructions on how to titrate up to 300mg BID. (2) Gangrene of toe of right foot: right 2nd toe - see above (3) Peripheral arterial disease: Underwent arterial duplex study of right leg arterial circulation. See data section for details. Dr Finn Tineo from cardiology saw Mr Hernandez in consult and arteriogram was deferred seeing that the cause of his toe ulcer was likely embolic rather than thrombotic. He will take coumadin for suspected embolic etiology. He will also continue on low-dose aspirin. (4) ESRD (end stage renal disease) on dialysis: on home peritoneal dialysis followed by Dr Xander Barreto from [facility] nephrology. received combination of PD and HD while hospitalized. latter was utilized due to hyperkalemia with peak K of 7 on 09/23/2019. Dr Barreto increased Mr Hernandez's sodium bicarbonate to 1300mg BID and he will continue this dosing at home. (5) Hyperkalemia: peak level of 7. required hemodialysis because of hyperkalemia. sodium bicarbonate supplement was increased as noted above. in addition to the hemodialysis session Dr Barreto adjusted the patient's peritoneal dialysis while hospitalized and also made adjustments for his home PD to account for the hyperkalemia. he will have repeat BMP within 1 week of discharge to ensure stable potassium. (6) Rheumatoid arthritis: prednisone-dependent. received stress dose steroids during the stay. he will resume prednisone 5mg BID upon return home. 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 to RCC (9) GERD (gastroesophageal reflux disease): no symptoms during the stay (10) Coronary artery disease: s/p heart cath at [facility] ~2010 was told it was normal has had stress tests since that have been negative no recent ischemic symptoms at home continue aspirin Total Time Total Time Spent Total Time Spent (In Minutes): 60 Total Time Includes: Examination of the Patient, Discharge Planning, Medication Reconciliation and Communication With Other Providers Discharge Plan Discharge Items Patient Disposition: Home - Home Health Services Reason For Visit: RIGHT 2ND TOE DRY GANGRENE/ISCHEMIC ULCER Discharge Diagnosis: 1. right 2nd toe ulcer with dry gangrene -- amputation by Dr Sajan Goodwin 2. suspected embolism (blood clot that traveled to the toe) to the right 2nd toe causing the ulcer/gangrene - anticoagulation recommended 3. end-stage renal disease on peritoneal dialysis Activity: Resume your previous activity Weightbearing: Right partial Weightbearing Comment: use surgical shoe on R foot with walking; do not place pressure on toes Non-emergency contact: Primary Care Provider, Surgeon and Key Account Coordinator Call non-emergency contact if: you have any medication questions, your symptoms worsen, your pain is not controlled, your pain is worsening, your pain is unusual for you, your pain is concerning for you, you have a fever, your wound has increased redness, your wound has increased drainage and your wound pain has increased Follow-up/Referrals: Em Brannon DO [Primary Care Provider] - 09/29/19 11:20 am (see Dr Brannon's office within 1-2 weeks ) Xander Barreto DO [Physician] - (Dr Barreto's office to call you with appointment date/time ) Neo Goodwin DO [Surgeon] - (see Dr Goodwin or one of his PAs for s/p right 2nd toe amputation -- 1-2 weeks) Diet: Dialysis Renal and Low Potassium (2gm) Fluids: 1500ml (6 cups) Ambulatory Orders: Prothrombin Time INR (Timed) Timeframe: [id number] Location: Determined by Patient Ordered By: Gualberto Maya [facility] Attending Provider Instructions: You were treated for an ischemic ulcer on your right 2nd toe. This ulcer developed gangrene. You were seen by orthopedics - Dr Sajan Goodwin - who performed amputation. During the surgery it appeared that the ulcer was caused by an embolus in one of the small arteries in the toe. An embolus is a blood clot that travels from somewhere else in your body. A common location for a blood clot to form is in the heart or in the vessels close to your heart. Your echocardiogram did not show an obvious blood clot. We did not identify any atrial fibrillation which is an irregular heart rhythm that can lead to blood clot formation in the heart. Because of your past history of blood clots in the vessels near the heart in late 2018, and now this event, we are recommending blood thinners (anticoagulation). Thus we are placing you on coumadin/warfarin. You will start on 5mg once daily of coumadin. It is best to take it in the late afternoon. Coumadin requires careful blood monitoring. I am recommending that you have your "INR" (coumadin level) checked on Saturday AM, 09/26/2019, as well as 09/28/2019. These 2 lab values will tell us how much coumadin you should take on a daily basis. Dose adjustments will be needed over the next few weeks. Dr Brannon's office will monitor your coumadin levels starting next 09/28/2019. Please come to [facility] on Saturday morning, 09/26/2019, for your first coumadin level. Come to the main entrance of the [facility] and check in at the main desk. Tell them you are there for a blood draw. Once your blood draw is done you can head home. You do not have to wait. Then, on Saturday, your INRs can be checked at the [place] office. The staff at the [place] office will monitor your INRs from that point forward. Additional recommendations - 1. dry dressing changes to right foot every 2 days 2. antibiotics - take clindamycin 300mg three times a day for 6 more days; start TODAY 3. probiotics - take daily for 1 week 4. pain control - * gabapentin - see prescription for instructions; it will start at 100mg twice daily and gradually increase to 300mg twice daily over 1-2 weeks * [id number] tylenol as needed, up to 3000mg in 24 hours * hydromorphone (dilaudid) - 1-2 tablets every 6 hours as needed * additional refills will have to be obtained from your family doctor's office * know that the dilaudid pills will cause constipation * do NOT drive or use heavy machinery while taking dilaudid pain killers * do NOT drink alcohol while using dilaudid pain killers 5. coumadin/warfarin - 5mg daily starting the afternoon of 09/25/2019 * do not drink alcohol with coumadin/warfarin 6. follow any instructions regarding your peritoneal dialysis from Dr Barreto 7. please follow a low-potassium diet 8. stop any antibiotics previously given by the wound care center 9. note that Dr Barreto increased your sodium bicarbonate dose to 2 tabs twice daily (total of 1300mg twice daily) Return to [facility] if - * you are having fevers over 100.4 degrees * you have severe abdominal pain or diarrhea * you have worsening pain, redness, or drainage from your right foot operative site * you have excessive bleeding from any location (your PD catheter, your rectum, nosebleeding, etc) * any other concerns Pending Studies at Discharge: Yes Studies:: pathology from the right 2nd toe Stand-Alone Forms: My [facility], Smoking Cessation Medications and DC Order Prescriptions: New clindamycin HCl 300 mg capsule 300 mg PO TID 6 Days Qty: 18 RF: 0 warfarin 5 mg Tablet 5 mg PO DAILY@1600 Qty: 30 RF: 2 gabapentin 100 mg capsule 100 mg PO DIRECTED Qty: 60 RF: 0 Saccharomyces boulardii 250 mg capsule 250 mg PO DAILY 7 Days Qty: 7 RF: 0 hydromorphone [Dilaudid] 2 mg tablet 2 - 4 mg PO Q6H PRN (Reason: pain) Qty: 20 RF: 0 Continued lisinopril 5 mg tablet 5 mg PO QAM Qty: 90 RF: 1 zolpidem 10 mg tablet 10 mg PO HS Qty: 30 RF: 0 aspirin 81 mg tablet,delayed release (DR/EC) 81 mg PO HS RF: 0 amlodipine 5 mg Tablet 5 mg PO HS RF: 0 ergocalciferol (vitamin D2) 50,000 unit Capsule 50,000 units PO WK RF: 0 prednisone 5 mg tablet 5 mg PO BID RF: 0 Auryxia 210 mg iron tablet See Rx Instructions .ROUTE .COMPLEX RF: 0 tamsulosin 0.4 mg capsule 0.4 mg PO HS RF: 0 lactulose 10 gram/15 mL solution 30 ml PO BID PRN (Reason: Constipation) RF: 0 clobetasol [Temovate] 0.05 % cream 1 applic topical BID PRN (Reason: Apply to affected area) RF: 0 acetaminophen [Tylenol Extra Strength] 500 mg Tablet 1,000 mg PO TID PRN (Reason: Pain) RF: 0 Changed sodium bicarbonate 650 mg tablet 1,300 mg PO BID Qty: 120 RF: 2 Discontinued cephalexin [Keflex] 500 mg capsule 500 mg PO QID RF: 0 gabapentin 300 mg capsule 300 mg PO HS PRN (Reason: Pain) Qty: 90 RF: 0 Discharge Orders: Discharge Order (Routine); Ordered 09/24/19 Ordered By: Gualberto Bess/Other Patient Handouts: What to Know When TakingWarfarin Admission Data Admit Date/Time: 09/21/19 18:56 Attending Provider: Gualberto Maya Admit Provider: Gualberto Maya Primary Care Provider: Em Brannon Other Providers: Gualberto Maya ; Xander Barreto ; Neo Goodwin ; Shady Tineo ; Gricelda Pereira Other Interventions: Discharge Summary Assessment (RN) Last Done: 09/24/19 15:53 DC Date/Time DO NOT enter until pt leaves facility: 09/24/19 16:53 Coding Level of Care Code D/C Day Management >30 mins Diagnoses Ischemic ulcer of toe of right foot L97.513 Non-pressure ulcer stage: with necrosis of muscle Gangrene of toe of right foot I96 Peripheral arterial disease I73.9 ESRD (end stage renal disease) on dialysis N18.6; Z99.2 Hyperkalemia E87.5 Rheumatoid arthritis M06.9 Hypertension I10 History of nephrectomy, left Z90.5 GERD (gastroesophageal reflux disease) K21.9 Coronary artery disease I25.10
[2019-09-24] MEDS ORDERED: WARFARIN SOD 5 MG TAB PO SCH (16:00)
[2019-09-24] MEDS ORDERED: diphenhydrAMINE HCl 12.5 MG/5 ML UDC PO ONE (16:15)
--- NOTE | 2019-09-25 08:41 | Communication Note ---
Date of Service: September 25, 2019 Pt discharged prior to being seen
== END 2019-09-24 16:53 | disposition home health service (06) | DRG 255 ==
LOC: ED 15:21 → 2W 18:56

== ENCOUNTER 2022-06-05 14:26 | Inpatient (IN) ==
[2022-06-05 15:47] LABS: Basophils # (auto) 0.02 K/uL (0-0.2); Basophils % (auto) 0.2 %; Eosinophils # (auto) 0.01 K/uL (0-0.50); Eosinophils % (auto) 0.1 %; Hematocrit (blood only) 33.9 % (42.0-52.0); Immature Granulocytes # (auto) 0.45 K/uL (0.01-0.20); Immature Granulocytes % (auto) 3.9 %; Lymphocytes # (auto) 0.29 K/uL (1.2-3.4); Lymphocytes % (auto) 2.5 %; Mean Corpuscular Hemoglobin 31.8 pg (25.0-34.0); Mean Corpuscular Hgb Conc 32.4 g/dL (32.0-36.0); Monocytes % (auto) 5.1 %; Neutrophils % (auto) 88.2 %; Nucleated RBC # (auto) 0.02 K/uL (0-0.12); Nucleated RBC % (auto) 0.2 %; Platelet Count 140 K/uL (130-400); RDW Coefficient of Variation 14.6 % (11.5-14.5); Red Blood Count 3.46 M/uL (4.70-6.10); White Blood Count 11.67 K/ul (4.8-10.8)
[2022-06-05 16:35] LABS: Alanine Aminotransferase 19 U/L (7-52); Albumin Globulin Ratio 1.7 (0.9-2); Alkaline Phosphatase 46 U/L (34-104); Anion Gap 12 (3-11); Aspartate Aminotransferase 15 U/L (13-39); BUN Creatinine Ratio 7.2 (10-20); Bilirubin,Total 0.7 mg/dl (0.2-1.0); Blood Urea Nitrogen 52 mg/dl (6-23); Calcium 7.4 mg/dl (8.5-10.1); Carbon Dioxide 28 mmol/L (21-32); Chloride 105 mmol/L (98-107); Est GFR (African American) 8.8 ml/min; Est GFR (Non-African American) 7.6 ml/min; Globulin 2.4 gm/dl (2.5-4.0); Glucose 87 mg/dl (70-99(Fasting)); Potassium 5.1 mmol/L (3.5-5.1); Sodium 145 mmol/L (136-145); Total Protein 6.4 gm/dl (6.0-8.3)
--- NOTE | 2022-06-05 17:43 | XRay Report ---
XR foot RT min 3V routine CLINICAL HISTORY: stump pain TECHNIQUE: 3 views of the right foot were obtained. Comparison: Comparison is made to right ankle radiographs 10/12/2021 FINDINGS: Patient is status post right midfoot amputation. Lucencies are seen within the residual talus, nonspe cific. IMPRESSION: Status post application with lucencies in the bones of the foot which are nonspecific, may represent demineralization however osteomyelitis cannot be entirely excluded. If there is clinical concern, MRI can be performed. ACT 112: Negative or not required by law. Electronically signed by: Deni Blum M.D. 06/05/2022 5:42 PM
[2022-06-05] MEDS ORDERED: VANCOMYCIN HCL 2,750 MG in SODIUM CHLORIDE 0.9% 500 ML IV ONE (18:05)
[2022-06-05] MEDS ORDERED: VANCOMYCIN CONSULT ACTIVE PRN (18:05)
--- NOTE | 2022-06-05 18:12 | History & Physical Report ---
Date of Service June 05, 2022 Assessment & Plan (1) Infection of amputation site of lower extremity: Plan: -Admit to med/surge -The patient is currently afebrile, hemodynamically stable, and stable on RA -Concerns for possible acute on chronic infection of the partial right foot amputation site -Xray of the amputation site cannot rule out OM at this time -Blood cultures were obtained prior to starting abx -Was ordered vancomycin by the ED, will add on cefepime for Pseudomonal coverage for now >Spoke with the pharmacy regarding cefepime dosing with his renal function and once weekly HD >They recommend 1g q24h -Will obtain MRI of the Right foot overnight for further evaluation, if negative for OM could likely DC on oral abx -AM CBC, BMP, Mag (2) Atrial fibrillation: Plan: -Stable -Has not been on Eliquis since September of 2021, unsure of the exact reason at this time but it appears that it may have been due to bleeding and bruising issues -Will obtain an ECG on admission to confirm he is not in afib at this time, if he is still in afib would recommend another discussion regarding anticoagulation due to his stroke and thombosis risk -Not currently on rate control, continue to monitor for now (3) Chronic pain: Plan: -Continue home regimen (4) ESRD (end stage renal disease) on dialysis: Plan: -Currently gets HD once weekly on Tuesdays, had a full session today prior to coming to the ED -Calcium is 7.4, will obtain an Ionized calcium now -All other electrolytes are currently stable -Monitor AM BMP, MAG (5) Chronic constipation: Plan: -Continue prn lactulose (6) BPH loc w urin obs/LUTS: Plan: -Continue flomax (7) Psoriatic arthritis: Plan: -Normally on 5mg PO BID -Hold PO pred for now with current infection (8) Hypertension: Plan: -Stable -Continue amlodipine -Patient is also on Lisinopril as prescribed by Nephrology, continue Plan The patient was discussed with Dr. Gaspar at the time of the admission History of Present Illness Chief Complaint: Right partial foot amputation site pain/infection Primary Care Provider: DO Sesar Fernando is a 56 year old male with a PMH significant for renal cell carcinoma S/P left nephrectomy ESRD on hemodialysis on Tuesdays, afib (No longer on anticoagulation), DM, HTN, CAD, ALBA, hyperlipidemia, chronic constipation, S/P previous left BKA and right partial metatarsal amputations, S/P amputation of Right 2-4 digits on 03/18/2020, RA currently on prednisone therapy, and BPH who presented to the [facility] ED on 06/05/22 due to concerns for infection at his partial right foot amputation site. In the ED the patient was found to be afebrile, hypertensive at 182/83, and stable on RA. Labs were remarkable for a CBC with WBC of 11.67 with a left shift of 10.30, stable Hgb at 11.0, stable platelets at 140, cr of 7.21, AG of 12 with bicarb of 28, calcium of 7.4. X-ray of the right foot amputation site was read as "Status post application with lucencies in the bones of the foot which are nonspecific, may represent demineralization however osteomyelitis cannot be entirely excluded. If there is clinical concern, MRI can be performed.". Prior to admission blood cultures were obtained and the patient was order one dose of vancomycin. At the time of the exam the patient was resting in bed in no acute distress. He states that he is followed by the wound care clinic for his known chronic wound at the site of his partial right foot amputation. He was previously on cefdinir for a possible acute infection of the site but these abx were stopped approximately 3 weeks ago by the wound care clinic as they thought the infection was adequately treated. The patient states that the wound, located on the distal aspect of his surgical site was caused by too much pressure from his prosthesis. The wound care clinic made an adjustment to his prosthesis so it put more pressure on his heel. He explains that he has chronic drainage from the wound site, which has been stable. Approximately one week ago the pain at his chronic wound site started to increased. It came to the point today, after dialysis that the pain became unbearable, causing him to come to the ED for evaluation. He denies recent fevers, chills, chest pain, SOB, abdominal pain, nausea, vomiting, diarrhea, dysuria, hematuria, melena, and recent trauma. He still makes urine and has not noticed a change in frequency or amount of urine produced daily. He is agreeable to come into the hospital for IV antibiotics and an MRI for further evaluation. He did explain that he has to pick his son up from school tomorrow at 2 pm and will not want to stay longer if not absolutely necessary. He wishes to be a Full Code. I had a discussion with the patient regarding why he was taken off of Eliquis as review of his med rec shows the last prescription for Eliquis was a 30 day supply ordered by his PCP (Dr. Brannon) in September of 2021. He states that he was told he no longer needed to be on anticoagulation and thought it was due to his easy bruising and bleeding. After review of Dr. Brannon's last note of 03/19/22 the patient first went into afib RVR during an ICU admission at [facility] in in September of 2021, it was also noted that he has a previous history of previous DVT and thrombotic event. He was advised by Cardiology and Vascular Surgery to "consider" anticoagulation at that time for reduction of his stroke risk. Please refer to Dr. Gaspar's attestation for any changes to the treatment plan. Allergies Allergy/AdvReac Type Severity Reaction Status Date / Time oxycodone Allergy Severe Swelling Verified 06/05/22 17:10 of throat and itchiness finasteride Allergy Intermediate Hives Verified 06/05/22 17:10 hydrocodone Allergy Intermediate Rash Verified 06/05/22 17:10 Penicillins Allergy Intermediate RASH, Verified 06/05/22 17:10 HIVES, ITCHING Home Medications Medication Instructions Recorded Confirmed Type acetaminophen 500 mg tablet 1,000 mg PO TID PRN Pain 08/12/18 06/05/22 History (Tylenol Extra Strength) lactulose 10 gram/15 mL oral 30 ml PO BID PRN Constipation #946 08/10/20 06/05/22 Rx solution mL Prosthetic supplies #1 ea 12/01/20 03/19/22 Rx RT silicone partial foot prostehsis #1 ea 07/01/21 03/19/22 Rx R hand prosthesis #1 ea 10/10/21 03/19/22 Rx amlodipine 5 mg tablet 5 mg PO HS #90 tabs 02/06/22 06/05/22 Rx tamsulosin 0.4 mg capsule 0.4 mg PO BID #180 caps 02/15/22 06/05/22 Rx ondansetron HCl 4 mg tablet 4 mg PO Q8H PRN nausea and 03/19/22 06/05/22 Rx vomiting #40 tabs lisinopril 5 mg tablet 5 mg PO DAILY #90 tabs 05/09/22 06/05/22 Rx prednisone 5 mg tablet 5 mg PO BID #180 tabs 05/09/22 06/05/22 Rx morphine 30 mg tablet,extended 30 mg PO Q12H #60 tabs 05/31/22 06/05/22 Rx release (MS Contin) clobetasol 0.05 % topical cream 1 applic topical BID PRN AFFECTED 06/05/22 06/05/22 History AREA NEEDED zolpidem 10 mg tablet 10 mg PO HS 06/05/22 06/05/22 History Past Med/Surg History Medical History Atrial fibrillation AV fistula LEFT ARM Avascular necrosis of bones of both hips Chronic pain Diabetes mellitus MONITORING, NO MEDICINE TO TREAT. Diverticulosis Dyslipidemia ESRD (end stage renal disease) on dialysis FSGS (focal segmental glomerulosclerosis) Gangrene of toe of right foot History of renal cell cancer Hypertension Ischemic ulcer of toe of right foot Peripheral arterial disease Scrotal swelling Urinary incontinence Surgical History Acquired absence of left leg below knee (01/11/20) Acquired absence of right finger(s) (03/18/20) 2n-4th digits Acquired absence of right foot (03/18/20) secondary to dry gangrene, [facility] [place] H/O hand surgery (~09/2018) Hilda 10/02/18 H/O hernia repair (~10/21/17) 10/20/2017. GETA. Grade 1 view. Escobar 2. 8.0 ETT. No issues. 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) 2nd toe, d/t embolism Status post insertion of hemodialysis catheter +MULTIPLE REVISIONS Family History Brother Liver cirrhosis secondary to ALBA Family history of diabetes mellitus Father Brain tumor Coronary heart disease Hypertension Family history of diabetes mellitus Myocardial infarction Mother Liver cancer Hypertension Family history of diabetes mellitus Breast cancer Grandmother (Maternal) Stroke Sister Family history of diabetes mellitus Ovarian cancer x2 Grandfather (Maternal) Family hx of colon cancer Colorectal cancer Prostate cancer Grandfather (Paternal) Prostate cancer Social History Smoking Status: Never smoker Second Hand Exposure: No; Do You Dip or Chew Tobacco: Yes; Tobacco Cessation Education Requested by Patient: No Hx Alcohol Use: No Hx Substance Use: No Preferred Language: Vietnamese Communication Ability: Effective Visual Impairment: No Limitations Hearing Ability: Normal 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 Required: No Beliefs That Will Affect Care: None marital status: Current Living Situation: Alone current occupational status: disabled 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 Review of Systems Review of Systems: Denies current fever, chills, headache, changes in vision, hearing, taste, and smell, chest pain, SOB, cough, abdominal pain, nausea, vomiting, diarrhea, hematemesis, melena, dysuria, hematuria, and recent falls. All systems have been reviewed and are otherwise negative. Physical Exam Physical Exam: Physical Exam: General: In no acute distress, stated age, well-nourished, chronically ill- appearing HEENT: Normocephalic, atraumatic, no scleral icterus, pupils around round, symmetrical, and reactive to light, moist mucus membranes, trachea midline, no thyromegaly Chest/Pulm: No respiratory distress, symmetrical chest expansion, clear breath sounds throughout Cardiac: RRR, systolic murmur noted Abdomen: Negative for ascites and bruising, normoactive bowel sounds, soft, non-tender to palpation throughout Musculoskeletal: Previous right 2-4 digit amputations are well healed as is his previous left BKA amputation site, the right partial foot amputation site is erythematous with pustulous drainage but no signs of tracking up the RLE at this time Extremities: Patient with AV fistula located on the left forearm with intact thrill, Skin: As described above Neuro: Alert and oriented to person, place, month, year, and president, no focal defects, no tremors noted Psych: No acute distress, calm and cooperative during the exam Results & Data Results & Data ([facility]) Vital Signs (Past 12 Hours) Vital Signs Temp Pulse Resp BP Pulse Ox O2 Del Method 06/05/22 14:48 36.9 C 83 18 182/83 H 96 Room Air Laboratory Results Abnormal lab results 06/05/22 06/05/22 Range/Units 15:30 15:30 WBC 11.67 H (4.8-10.8) K/ul RBC 3.46 L (4.70-6.10) M/uL Hgb 11.0 L (14.0-18.0) g/dl Hct 33.9 L (42.0-52.0) % RDW Std Deviation 53.0 H (36.4-46.3) fL RDW Coeff of Marcelino 14.6 H (11.5-14.5) % Neut # (Auto) 10.30 H (1.40-6.50) K/uL Lymph # (Auto) 0.29 L (1.2-3.4) K/uL Dillon # (Auto) 0.60 H (0.11-0.59) K/uL Immature Gran # (Auto) 0.45 H (0.01-0.20) K/uL Anion Gap 12 H (3-11) BUN 52 H (6-23) mg/dl Creatinine 7.21 H* (0.6-1.4) mg/dl BUN/Creatinine Ratio 7.2 L (10-20) Calcium 7.4 L (8.5-10.1) mg/dl Globulin 2.4 L (2.5-4.0) gm/dl Diagnostic Findings Foot X-Ray 06/05/22 17:11 XR foot RT min 3V routine CLINICAL HISTORY: stump pain TECHNIQUE: 3 views of the right foot were obtained. Comparison: Comparison is made to right ankle radiographs 10/12/2021 FINDINGS: Patient is status post right midfoot amputation. Lucencies are seen within the residual talus, nonspecific. IMPRESSION: Status post application with lucencies in the bones of the foot which are nonspecific, may represent demineralization however osteomyelitis cannot be entirely excluded. If there is clinical concern, MRI can be performed. ACT 112: Negative or not required by law. Electronically signed by: Deni Blum M.D. 06/05/2022 5:42 PM ECG Additional Comments: No ECG available at the time of the admisison Code Status & VTE Plan Code Status FUll code VTE Prophylaxis Plan VTE Prophylaxis will be ordered: Yes Supervising Physician Co-Signing Physician Notes PA Supervision Note: I personally saw and examined the patient. I verified all chavarria points and agree with EVENS Rondon with the following exceptions and/or additions: Subjective: 56-year-old male past medical history significant for multiple lower extremity amputations, including right transmetatarsal amputation, left lower extremity amputation, atrial fibrillation, ESRD on hemodialysis Saturday, , and Saturday with last dialysis today, GERD, ALBA without cirrhosis, diabetes, hypertension presented to the hospital for worsening pain in his right lower extremity stump site. He notes that the ulceration looks the same, the redness around the ulceration looks the same, and the drainage from that ulceration looks the same as it has over the last several weeks. He denies fevers, chills, chest pain, shortness of breath. ER studies as described below, hospitalist service consulted for admission for suspected stump infection and rule out osteomyelitis Physical exam: Vitals reviewed Gen: Alert and oriented, NAD HEENT: anicteric sclerae, EOMI CV: RRR no murmurs Pulm: CTAB no wheezes Abd: +BS soft nontender Ext: no edema Skin: Right lower extremity notable amputation of the partial foot, does have small 1 cm ulceration on the stump site with some mild surrounding erythema, some mild tenderness surrounding. Neuro: No focal neurologic deficits Labs, Rads reviewed: Lab work notable for a mildly elevated white count 11.67 with a left shift, creatinine of 7.21, potassium 5.1, calcium 7.4, COVID- negative. Foot x-ray shows lucencies in the bones of the foot which are nonspecific but may represent demineralization versus osteomyelitis, recommending MRI. Assessment and Plan: Possible right stump infection: Given worsening of pain and questionable evidence of osteomyelitis on x-ray, will get MRI to confirm and for now we will start on empiric antibiotics Vanco/cefepime, blood cultures pending. Patient has a history of MRSA skin infections in the past. Lab work repeat CBC and BMP in the morning. If patient does not have evidence of osteomyelitis feel that he could be safely discharged home tomorrow on oral antibiotics. Will hold prednisone home dosing just this evening and tomorrow morning (is on this for RA) given acute infection, will likely resume on discharge. End-stage renal disease on hemodialysis: If patient remains in the hospital through , will need dialysis per his regular schedule. Dialysis went well today and patient is without complaints other than his stump pain. Atrial fibrillation: History of, previously on Eliquis but patient reports that he was stopped on this due to easy bleeding and bruising. Will not continue at this time. Patient is also not on rate control, but has a heart rate of 59 at this time, continue to monitor Plan otherwise as stated above PG Care Time/CCT Total # of Minutes Spent Total Time Spent with Patient: Total time spent is greater than 50% in coordination of care (as documented) at patient's floor/unit and/or counseling patient: Coding Level of Care Code 07554 INT INP/OBS CARE 3/75MIN Medical Decision Making High Complexity Diagnoses Infection of amputation site of lower extremity T87.40 Atrial fibrillation I48.91 Chronic pain G89.29 ESRD (end stage renal disease) on dialysis N18.6; Z99.2 Chronic constipation K59.09 BPH loc w urin obs/LUTS N40.1 Psoriatic arthritis L40.50 Hypertension I10
[2022-06-05] MEDS ORDERED: LACTULOSE SYRUP 20 GM/30 ML UDC PO PRN (21:39)
[2022-06-05 22:34] LABS: Appearance Urine Clear (Clear); Bacteria Urine Automated Negative (Negative); Bilirubin Urine Negative (Negative); Blood Urine Negative (Negative); Color Urine Yellow; Glucose Urine UA Trace (Negative); Ketones Urine Negative (Negative); Leukocyte Esterase Urine Negative (Negative); Nitrite Urine Negative (Negative); RBC Urine Automated 0-4 /hpf (0-4); Specific Gravity Urine 1.011 (1.000-1.030); Urobilinogen Urine Negative (Negative); pH Urine >= 9.0 (4.5-7.5)
[2022-06-05 22:35] LABS: Protein Urine 2+ (Negative)
--- NOTE | 2022-06-05 23:13 | Emergency Department Note ---
History of Present Illness General Chief complaint: Infection Stated complaint: POSSIBLE INFECTION Time Seen by Provider: 06/05/22 16:26 History of Present Illness Provider complaint: Right stump pain Onset (ago): week(s) 1 Location: lower extremity and right Maximum Pain Intensity: 10 56-year-old male presents emergency department with right stump pain. He reports he is having pain in his right stump of his foot for the last week. Patient states he had this foot amputated in January 2021. He states that he h as not been having fevers. Mild discharge from his stump. Patient is on dialysis Saturday and did go to dialysis today and had a full session. Home Medications Medication Instructions Recorded Confirmed Type acetaminophen 500 mg tablet 1,000 mg PO TID PRN Pain 08/12/18 06/05/22 History (Tylenol Extra Strength) lactulose 10 gram/15 mL oral 30 ml PO BID PRN Constipation #946 08/10/20 06/05/22 Rx solution mL Prosthetic supplies #1 ea 12/01/20 03/19/22 Rx RT silicone partial foot prostehsis #1 ea 07/01/21 03/19/22 Rx R hand prosthesis #1 ea 10/10/21 03/19/22 Rx amlodipine 5 mg tablet 5 mg PO HS #90 tabs 02/06/22 06/05/22 Rx tamsulosin 0.4 mg capsule 0.4 mg PO BID #180 caps 02/15/22 06/05/22 Rx ondansetron HCl 4 mg tablet 4 mg PO Q8H PRN nausea and 03/19/22 06/05/22 Rx vomiting #40 tabs lisinopril 5 mg tablet 5 mg PO DAILY #90 tabs 05/09/22 06/05/22 Rx prednisone 5 mg tablet 5 mg PO BID #180 tabs 05/09/22 06/05/22 Rx morphine 30 mg tablet,extended 30 mg PO Q12H #60 tabs 05/31/22 06/05/22 Rx release (MS Contin) clobetasol 0.05 % topical cream 1 applic topical BID PRN AFFECTED 06/05/22 06/05/22 History AREA NEEDED zolpidem 10 mg tablet 10 mg PO HS 06/05/22 06/05/22 History Allergies Allergy/AdvReac Type Severity Reaction Status Date / Time oxycodone Allergy Severe Swelling Verified 06/05/22 17:10 of throat and itchiness finasteride Allergy Intermediate Hives Verified 06/05/22 17:10 hydrocodone Allergy Intermediate Rash Verified 06/05/22 17:10 Penicillins Allergy Intermediate RASH, Verified 06/05/22 17:10 HIVES, ITCHING Past Med/Surg History Medical History Atrial fibrillation AV fistula LEFT ARM Avascular necrosis of bones of both hips Chronic pain Diabetes mellitus MONITORING, NO MEDICINE TO TREAT. 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 GETA. Grade 1 sujey. Escobar 2. 8.0 ETT. No issues. 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) 2nd toe, d/t embolism Status post insertion of hemodialysis catheter +MULTIPLE REVISIONS Family History Brother Liver cirrhosis secondary to ALBA Family history of diabetes mellitus Father Brain tumor Coronary heart disease Hypertension Family history of diabetes mellitus Myocardial infarction Mother Liver cancer Hypertension Family history of diabetes mellitus Breast cancer Grandmother (Maternal) Stroke Sister Family history of diabetes mellitus Ovarian cancer x2 Grandfather (Maternal) Family hx of colon cancer Colorectal cancer Prostate cancer Grandfather (Paternal) Prostate cancer Social History Smoking Status: Never smoker Second Hand Exposure: No; Do You Dip or Chew Tobacco: Yes; Tobacco Cessation Education Requested by Patient: No Hx Alcohol Use: No Hx Substance Use: No Preferred Language: Thai Communication Ability: Effective Visual Impairment: No Limitations Hearing Ability: Normal 911 Emergency Dispatcher Required: No Beliefs That Will Affect Care: None marital status: Current Living Situation: Alone current occupational status: disabled 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 Physical Exam Vital Signs Vital Signs - 24 hr 06/05/22 14:48 Temperature 36.9 C Temperature Source Temporal Artery Scan Pulse Rate 83 Pulse Rhythm Regular Pulse Strength Normal Respiratory Rate 18 Respiratory Effort / Characteristics Non-Labored Respiratory Depth Normal Respiratory Pattern Regular Blood Pressure 182/83 H Blood Pressure Mean 116 Blood Pressure Position Sitting Pulse Oximetry 96 Oxygen Delivery Method Room Air Sepsis Recent Fever Within 48 Hours No Sepsis New/Unexplained Change in Mental Status No Sepsis Action Taken by Nursing No Action Required Physical Exam GENERAL: He is oriented to person, place, and time. He appears well-developed and well-nourished. He does not appear distressed. CV: Normal rate, regular rhythm, normal heart sounds and intact distal pulses. There is no peripheral edema. Palpable radial pulses bue. PULM/CHEST: Effort normal and breath sounds normal. No respiratory distress. No stridor. He has no wheezes. He has no rales. MUSC/SKEL: Left upper extremity: AV fistula with palpable thrill. Multiple amputated fingers Left lower extremity: BKA Right lower extremity: Partial amputation of the right foot. Course Course 162: The patient was evaluated in room C9. A complete history and physical exam was performed Cardiac monitoring: An order was placed for continuous cardiac monitoring. The monitor shows a rate of 60 with sinus rhythm interpreted by me 1800: Vital signs stable. Creatinine stable at 7.21. Imaging shows possible osteomyelitis. Patient treated with vancomycin will be [facility] Hospitalist team Dr. Villareal notified. Administered Medications Discontinued Medications Vancomycin HCl 2,750 mg/ (Sodium Chloride) 555 mls @ 200 mls/hr IV NOW ONE Stop: 06/05/22 20:51 Last Admin: 06/05/22 19:12 Dose: 200 mls/hr Documented By: RSJean Paul Medical Decision Making Laboratory Data 06/05/22 15:30 06/05/22 15:30 Lab Results 06/05/22 06/05/22 Range/Units 15:30 15:30 WBC 11.67 H (4.8-10.8) K/ul RBC 3.46 L (4.70-6.10) M/uL Hgb 11.0 L (14.0-18.0) g/dl Hct 33.9 L (42.0-52.0) % MCV 98.0 (80.0-100.0) fL MCH 31.8 (25.0-34.0) pg MCHC 32.4 (32.0-36.0) g/dL RDW Std Deviation 53.0 H (36.4-46.3) fL RDW Coeff of Marcelino 14.6 H (11.5-14.5) % Plt Count 140 (130-400) K/uL MPV 11.0 (9.4-12.4) fL Immature Gran % (Auto) 3.9 % Neut % (Auto) 88.2 % Lymph % (Auto) 2.5 % Powell % (Auto) 5.1 % Eos % (Auto) 0.1 % Baso % (Auto) 0.2 % Neut # (Auto) 10.30 H (1.40-6.50) K/uL Lymph # (Auto) 0.29 L (1.2-3.4) K/uL Powell # (Auto) 0.60 H (0.11-0.59) K/uL Eos # (Auto) 0.01 (0-0.50) K/uL Baso # (Auto) 0.02 (0-0.2) K/uL Immature Gran # (Auto) 0.45 H (0.01-0.20) K/uL Absolute Nucleated RBC 0.02 (0-0.12) K/uL Nucleated RBC % (auto) 0.2 % Sodium 145 (136-145) mmol/L Potassium 5.1 (3.5-5.1) mmol/L Chloride 105 (98-107) mmol/L Carbon Dioxide 28 (21-32) mmol/L Anion Gap 12 H (3-11) BUN 52 H (6-23) mg/dl Creatinine 7.21 H* (0.6-1.4) mg/dl Est Cr Clr Drug Dosing Not Reportable Est GFR ( Amer) 8.8 ml/min Est GFR (Non-Af Amer) 7.6 ml/min BUN/Creatinine Ratio 7.2 L (10-20) Glucose 87 (70-99(Fasting)) mg/dl Calcium 7.4 L (8.5-10.1) mg/dl Total Bilirubin 0.7 (0.2-1.0) mg/dl AST 15 (13-39) U/L ALT 19 (7-52) U/L Alkaline Phosphatase 46 (34-104) U/L Total Protein 6.4 (6.0-8.3) gm/dl Albumin 4.0 (3.4-5.0) gm/dl Globulin 2.4 L (2.5-4.0) gm/dl Albumin/Globulin Ratio 1.7 (0.9-2) Imaging Data Radiologist's Impression: Foot X-Ray 06/05/22 17:11 XR foot RT min 3V routine CLINICAL HISTORY: stump pain TECHNIQUE: 3 views of the right foot were obtained. Comparison: Comparison is made to right ankle radiographs 10/12/2021 FINDINGS: Patient is status post right midfoot amputation. Lucencies are seen within the residual talus, nonspecific. IMPRESSION: Status post application with lucencies in the bones of the foot which are nonspecific, may represent demineralization however osteomyelitis cannot be enti rely excluded. If there is clinical concern, MRI can be performed. ACT 112: Negative or not required by law. Electronically signed by: Deni Blum M.D. 06/05/2022 5:42 PM MDM Narrative Vital signs stable. Creatinine stable at 7.21. Imaging shows possible osteomyelitis. Patient treated with vancomycin will be admitted to the [facility]ist team Dr. Villareal notified. Impression & Plan Osteomyelitis, ESRD (end stage renal disease) on dialysis Discharge Plan Visit Data Chief Complaint: Infection Stated Complaint: POSSIBLE INFECTION ED Provider: Praful Davis Discharge Problem: Osteomyelitis, ESRD (end stage renal disease) on dialysis Patient Disposition: Admitted As Inpatient Discharge Instructions Interventions: ED Discharge Assessment Last Done: 06/05/22 20:45
[2022-06-05] MEDS: amLODIPine BESYLATE 5 MG TAB PO SCH (23:17)
[2022-06-05] MEDS: FAMOTIDINE 20 MG in SYRINGE 3 ML IV SCH (23:17)
[2022-06-05] MEDS: CEFEPIME 1,000 MG in SYRINGE 0 ML IV SCH (23:18)
[2022-06-05] MEDS: TAMSULOSIN HCL 0.4 MG CAP PO SCH (23:18)
[2022-06-05] MEDS: ZOLPIDEM TARTRATE 10 MG TAB PO SCH (23:23)
[2022-06-05] MEDS: MoRPHine SULFATE CR 15 MG TABCR PO SCH (23:23)
[2022-06-06] MEDS: TAMSULOSIN HCL 0.4 MG CAP PO SCH ×2 (07:35→20:52)
[2022-06-06] MEDS: lisinopril 5 MG TAB PO SCH (07:35)
--- NOTE | 2022-06-06 07:35 | Magnetic Resonance Report ---
MR ankle RT wo con HISTORY: concern for R foot amputation site osteomyelitis. TECHNIQUE: Multiplanar multisequence MRI of the right ankle was performed without intravenous contras t according to standard departmental protocol. COMPARISON STUDY: Right foot radiograph 06/05/2022. FINDINGS: The patient is status post midfoot amputation. Heterogeneous marrow signal seen throughout the distal tibia, distal fibula, calcaneus, and residual talus consistent with bone infarcts. There i s abnormal marrow signal with erosive changes involving the residual anterior talus which is highly s uspicious for an osteomyelitis. This is best seen on coronal images 9 and measures approximately 2.6 cm. There is diffuse soft tissue edema within the ankle/hindfoot. No loculated fluid collections to s uggest an abscess. Small effusions at the tibiotalar and subtalar joints. There is a multiloculated f luid surrounding the flexor hallucis longus tendon. IMPRESSION: 1. Status post midfoot amputation. 2. Abnormal marrow signal and erosive/destructive change at the anterior talus consistent with a site of osteomyelitis. 3. Multiloculated fluid surrounding the flexor hallucis longus tendon. This could be due to a chronic tenosynovitis. Secondary infection would be impossible to exclude by imaging. ACT 112: Negative or not required by law. Electronically signed by: Harish Espino M.D. 06/06/2022 7:33 AM
[2022-06-06 08:07] LABS: Hemoglobin 9.9 g/dl (14.0-18.0); Mean Corpuscular Hemoglobin 31.9 pg (25.0-34.0); Mean Corpuscular Hgb Conc 31.9 g/dL (32.0-36.0); Mean Platelet Volume 10.8 fL (9.4-12.4); Platelet Count 127 K/uL (130-400); RDW Coefficient of Variation 14.6 % (11.5-14.5); RDW Standard Deviation 53.8 fL (36.4-46.3); White Blood Count 9.45 K/ul (4.8-10.8)
[2022-06-06 08:35] LABS: Prothrombin Time 10.3 Seconds (9.0-12.0)
--- NOTE | 2022-06-06 08:47 | Hospitalist Progress Note ---
Date of Service June 06, 2022 Assessment & Plan (1) Infection of amputation site of lower extremity: Plan: Recently on cefdinir x 3 weeks, stopped outpatient as told looked good by wound care Presented w/ continued drainage/worsening pain to RLE amputation site, prior seen by Dr Goodwin Xray Status post application with lucencies in the bones of the foot which are nonspecific, may represent demineralization however osteomyelitis cannot be entirely excluded. If there is clinical concern, MRI can be performed. MRI obtained to eval for underlying AOM MRI impression: * 1. Status post midfoot amputation. * 2. Abnormal marrow signal and erosive/destructive change at the anterior talus consistent with a site of osteomyelitis. * 3. Multiloculated fluid surrounding the flexor hallucis longus tendon. This could be due to a chronic tenosynovitis. Secondary infection would be impossible to exclude by imaging. Remains on Vanco/Cefepime -- vanco trough elevated (weight incorrect in system, was 114kg when actually ~85kg -- per pharmacy will be good until next week for Vanco dosing). Hx MRSA in ankle cx in past WBC 11.6k--> 9.4k, afebrile Blood cultures pending Cx if drainage occurs, hopefully will be able to obtain cx once eval w/ ortho Pain control -- IV diladid x 1, prn can be available if needed. Continue MS Contin BID. Added tylenol 1gm Q8H prn as well Orthopedics consulted -- Dr Goodwin to see this afternoon Monitor labs on repeat 06/06 PM --> eval this afternoon after RN messaged for pain control, patient requesting Tylenol. Tearful, crying in room. Morphine 2mg IV x 1 provided, not touched, 4mg IV x 1 ordered. States usually take 3-5 doses to get control. Was inquiring about [employer] given w/ prior abd surgery -- given not asking for anything up until this afternoon except tylenol would try prn morphine 2mg/4mg based on scale and can consider if needed (2) ESRD (end stage renal disease) on dialysis: Plan: Currently gets HD once weekly on Tuesdays, had a full session today prior to coming to the ED (misses frequently) Nephrology on consult Patiromer provided today for K 6 Low K diet Refused HD for today Monitor labs on repeat (3) Atrial fibrillation: Plan: Stable , examines in SR -- SR w/ PVCs on EKG -Has not been on Eliquis since September of 2021, unsure of the exact reason at this time but it appears that it may have been due to bleeding and bruising issues -- rec'd f/u PCP regarding this and likely should be on such to prevent stroke risk/clots Keep Mag/K acceptable B12/folate replacement for deficiency/anemia and check iron panel w/ AM labs (4) Anemia: Plan: hgb appears in 10-12 range, 11 on admit and 9.9 on am labs. no bleeding reported B12/folate low as above, replacement ordered monitor CBC in AM as well as iron panel for completeness given B12/folate deficiency but MCV 98-100 (5) Chronic pain: Plan: -Continue home regimen , Dilaudid/tylenol available as needed (6) Chronic constipation: Plan: Continue prn lactulose (7) BPH loc w urin obs/LUTS: Plan: Continue flomax (8) Psoriatic arthritis: Plan: Normally on prednisone 5mg PO BID Hold PO pred for now with current infection , NOT HAVING ANY HYPOTENSION (9) Hypertension: Plan: Stable Continue amlodipine -Patient is also on Lisinopril as prescribed by Nephrology -- will hold for AM given K/Cr and monitor (10) B12 deficiency: Plan: checked due to anemia/borderline MCV --> B12 LOW at 142 -- IM replacement while inpatient and would continue PO at d/c (11) Folate deficiency: Plan: checked due to anemia/borderline MCV --> Folate LOW 4.39, PO replacement ordered and would continue at discharge Plan continued inpatient stay orthopedics, Dr Goodwin to eval this evening Likely would need IV abx at discharge but will await eval CM alerted of possible/likely need for IV abx as patient DOES NOT WANT TO STAY PAST TOMORROW AT ALL AND MAY SIGN OUT AMA. RISKS DISCUSSED Admission and Anticipated Discharge Date Admission Date: June 05, 2022 Supervising Physician Co-Signing Physician Notes The patient was not seen by me. The chart was reviewed. Case discussed with EVENS Velasquez. Agree with assessment and plan Subjective eval this morning doing alright but very frustrated about being in the hospital. Discussed consultation for Dr Goodwin, likely not to be inpatient until later today. Discussed evidence for osteomyelitis and likely need for IV abx. Will discuss with CM to get working on arranging but discussed blood cultures needing to be negative prior to placement of PICC line. He states was on PO abx and has had continued drainage from his right stump, pain. Pain not currently controlled with ordered medications, states IV works better, will order. Denied any fevers/chills. No chest pain/shortness of breath, abdominal pain, nausea or vomiting. Questions/concerns addressed at this time. He is going to call his ip attorney to take care of son for today but is ONLY WILLING TO STAY UNTIL TOMORROW TO GET THINGS FIGURED OUT. Physical Exam Physical Exam: General: chronically ill appearing male , irritated sitting up in bed, wanting to know whats going on Resp: CTAB, ,no significant w/c, 100% on RA CV: RRR, +systolic murmur, no significant edema or calf tenderness GI: +BS, soft/NT MSK/Neuro: prior R 2-4 digit amputation well healed, prior LEFT BKA amputation site RIGHT partial foot amputation w/ surrounding erythema, fluctuance, lesion to distal aspect, no obvious drainage able to be appreciated Psych: AOx3, irritable but cooperative with care Results & Data Results & Data ([facility]) Vital Signs (Past 12 Hours) Vital Signs Temp Pulse Resp BP Pulse Ox Pulse Ox O2 Del Method 06/06/22 07:23 36.8 C 17 124/80 94 Room Air 06/05/22 20:50 Room Air 06/05/22 20:50 Room Air 06/05/22 20:50 96 06/05/22 20:50 36.9 C 66 18 160/93 H 96 Room Air 06/05/22 21:01 36.9 C 66 18 160/93 H 96 Room Air O2 Del Method 06/06/22 07:23 06/05/22 20:50 06/05/22 20:50 06/05/22 20:50 Room Air 06/05/22 20:50 06/05/22 21:01 Laboratory Results 06/06/22 06/06/22 06/06/22 Range/Units 07:31 07:31 07:31 WBC (4.8-10.8) K/ul RBC (4.70-6.10) M/uL Hgb (14.0-18.0) g/dl Hct (42.0-52.0) % MCV (80.0-100.0) fL MCH (25.0-34.0) pg MCHC (32.0-36.0) g/dL RDW Std Deviation (36.4-46.3) fL RDW Coeff of Marcelino (11.5-14.5) % Plt Count (130-400) K/uL MPV (9.4-12.4) fL Immature Gran % (Auto) % Neut % (Auto) % Lymph % (Auto) % Franklin % (Auto) % Eos % (Auto) % Baso % (Auto) % Neut # (Auto) (1.40-6.50) K/uL Lymph # (Auto) (1.2-3.4) K/uL Franklin # (Auto) (0.11-0.59) K/uL Eos # (Auto) (0-0.50) K/uL Baso # (Auto) (0-0.2) K/uL Immature Gran # (Auto) (0.01-0.20) K/uL Absolute Nucleated RBC (0-0.12) K/uL Nucleated RBC % (auto) % PT 10.3 (9.0-12.0) Seconds INR 1.0 (0.9-1.1) Sodium Pending (136-145) mmol/L Potassium Pending (3.5-5.1) mmol/L Chloride Pending (98-107) mmol/L Carbon Dioxide Pending (21-32) mmol/L Anion Gap Pending (3-11) BUN Pending (6-23) mg/dl Creatinine Pending (0.6-1.4) mg/dl Est Cr Clr Drug Dosing Pending Est GFR ( Amer) Pending ml/min Est GFR (Non-Af Amer) Pending ml/min BUN/Creatinine Ratio Pending (10-20) Glucose Pending (70-99(Fasting)) mg/dl Calcium Pending (8.5-10.1) mg/dl Ionized Calcium (1.12-1.32) mmol/L Phosphorus Pending (2.5-4.9) mg/dl Magnesium Pending Total Bilirubin (0.2-1.0) mg/dl AST (13-39) U/L ALT (7-52) U/L Alkaline Phosphatase (34-104) U/L Total Protein (6.0-8.3) gm/dl Albumin (3.4-5.0) gm/dl Globulin (2.5-4.0) gm/dl Albumin/Globulin Ratio (0.9-2) Urine Color Urine Appearance (Clear) Urine pH (4.5-7.5) Ur Specific Miles (1.000-1.030) Urine Protein (Negative) Urine Glucose (UA) (Negative) Urine Ketones (Negative) Urine Blood (Negative) Urine Nitrite (Negative) Urine Bilirubin (Negative) Urine Urobilinogen (Negative) Ur Leukocyte Esterase (Negative) Urine WBC (Auto) (0-5) /hpf Urine RBC (Auto) (0-4) /hpf U Hyaline Cast (Auto) (0-5) /lpf U Epithel Cells (Auto) (0-5) /lpf Urine Bacteria (Auto) (Negative) Nasal Screen MRSA (PCR) (Negative) Random Vancomycin Pending SARS-CoV-2, RNA, NAAT (NEGATIVE) 06/06/22 06/05/22 06/05/22 Range/Units 07:31 21:49 21:49 WBC 9.45 (4.8-10.8) K/ul RBC 3.10 L (4.70-6.10) M/uL Hgb 9.9 L (14.0-18.0) g/dl Hct 31.0 L (42.0-52.0) % MCV 100.0 (80.0-100.0) fL MCH 31.9 (25.0-34.0) pg MCHC 31.9 L (32.0-36.0) g/dL RDW Std Deviation 53.8 H (36.4-46.3) fL RDW Coeff of Marcelino 14.6 H (11.5-14.5) % Plt Count 127 L (130-400) K/uL MPV 10.8 (9.4-12.4) fL Immature Gran % (Auto) % Neut % (Auto) % Lymph % (Auto) % Franklin % (Auto) % Eos % (Auto) % Baso % (Auto) % Neut # (Auto) (1.40-6.50) K/uL Lymph # (Auto) (1.2-3.4) K/uL Franklin # (Auto) (0.11-0.59) K/uL Eos # (Auto) (0-0.50) K/uL Baso # (Auto) (0-0.2) K/uL Immature Gran # (Auto) (0.01-0.20) K/uL Absolute Nucleated RBC (0-0.12) K/uL Nucleated RBC % (auto) % PT (9.0-12.0) Seconds INR (0.9-1.1) Sodium (136-145) mmol/L Potassium (3.5-5.1) mmol/L Chloride (98-107) mmol/L Carbon Dioxide (21-32) mmol/L Anion Gap (3-11) BUN (6-23) mg/dl Creatinine (0.6-1.4) mg/dl Est Cr Clr Drug Dosing Est GFR ( Amer) ml/min Est GFR (Non-Af Amer) ml/min BUN/Creatinine Ratio (10-20) Glucose (70-99(Fasting)) mg/dl Calcium (8.5-10.1) mg/dl Ionized Calcium (1.12-1.32) mmol/L Phosphorus (2.5-4.9) mg/dl Magnesium Total Bilirubin (0.2-1.0) mg/dl AST (13-39) U/L ALT (7-52) U/L Alkaline Phosphatase (34-104) U/L Total Protein (6.0-8.3) gm/dl Albumin (3.4-5.0) gm/dl Globulin (2.5-4.0) gm/dl Albumin/Globulin Ratio (0.9-2) Urine Color Yellow Urine Appearance Clear (Clear) Urine pH >= 9.0 H (4.5-7.5) Ur Specific Miles 1.011 (1.000-1.030) Urine Protein 2+ H (Negative) Urine Glucose (UA) Trace H (Negative) Urine Ketones Negative (Negative) Urine Blood Negative (Negative) Urine Nitrite Negative (Negative) Urine Bilirubin Negative (Negative) Urine Urobilinogen Negative (Negative) Ur Leukocyte Esterase Negative (Negative) Urine WBC (Auto) 1-5 (0-5) /hpf Urine RBC (Auto) 0-4 (0-4) /hpf U Hyaline Cast (Auto) 1-5 (0-5) /lpf U Epithel Cells (Auto) 5-10 H (0-5) /lpf Urine Bacteria (Auto) Negative (Negative) Nasal Screen MRSA (PCR) Positive A (Negative) Random Vancomycin SARS-CoV-2, RNA, NAAT (NEGATIVE) 06/05/22 06/05/22 06/05/22 Range/Units 20:57 20:57 18:49 WBC (4.8-10.8) K/ul RBC (4.70-6.10) M/uL Hgb (14.0-18.0) g/dl Hct (42.0-52.0) % MCV (80.0-100.0) fL MCH (25.0-34.0) pg MCHC (32.0-36.0) g/dL RDW Std Deviation (36.4-46.3) fL RDW Coeff of Marcelino (11.5-14.5) % Plt Count (130-400) K/uL MPV (9.4-12.4) fL Immature Gran % (Auto) % Neut % (Auto) % Lymph % (Auto) % Franklin % (Auto) % Eos % (Auto) % Baso % (Auto) % Neut # (Auto) (1.40-6.50) K/uL Lymph # (Auto) (1.2-3.4) K/uL Franklin # (Auto) (0.11-0.59) K/uL Eos # (Auto) (0-0.50) K/uL Baso # (Auto) (0-0.2) K/uL Immature Gran # (Auto) (0.01-0.20) K/uL Absolute Nucleated RBC (0-0.12) K/uL Nucleated RBC % (auto) % PT (9.0-12.0) Seconds INR (0.9-1.1) Sodium (136-145) mmol/L Potassium (3.5-5.1) mmol/L Chloride (98-107) mmol/L Carbon Dioxide (21-32) mmol/L Anion Gap (3-11) BUN (6-23) mg/dl Creatinine (0.6-1.4) mg/dl Est Cr Clr Drug Dosing Est GFR ( Amer) ml/min Est GFR (Non-Af Amer) ml/min BUN/Creatinine Ratio (10-20) Glucose (70-99(Fasting)) mg/dl Calcium (8.5-10.1) mg/dl Ionized Calcium 0.83 L (1.12-1.32) mmol/L Phosphorus 7.1 H (2.5-4.9) mg/dl Magnesium Total Bilirubin (0.2-1.0) mg/dl AST (13-39) U/L ALT (7-52) U/L Alkaline Phosphatase (34-104) U/L Total Protein (6.0-8.3) gm/dl Albumin (3.4-5.0) gm/dl Globulin (2.5-4.0) gm/dl Albumin/Globulin Ratio (0.9-2) Urine Color Urine Appearance (Clear) Urine pH (4.5-7.5) Ur Specific Miles (1.000-1.030) Urine Protein (Negative) Urine Glucose (UA) (Negative) Urine Ketones (Negative) Urine Blood (Negative) Urine Nitrite (Negative) Urine Bilirubin (Negative) Urine Urobilinogen (Negative) Ur Leukocyte Esterase (Negative) Urine WBC (Auto) (0-5) /hpf Urine RBC (Auto) (0-4) /hpf U Hyaline Cast (Auto) (0-5) /lpf U Epithel Cells (Auto) (0-5) /lpf Urine Bacteria (Auto) (Negative) Nasal Screen MRSA (PCR) (Negative) Random Vancomycin SARS-CoV-2, RNA, NAAT NEGATIVE (NEGATIVE) 06/05/22 06/05/22 Range/Units 15:30 15:30 WBC 11.67 H (4.8-10.8) K/ul RBC 3.46 L (4.70-6.10) M/uL Hgb 11.0 L (14.0-18.0) g/dl Hct 33.9 L (42.0-52.0) % MCV 98.0 (80.0-100.0) fL MCH 31.8 (25.0-34.0) pg MCHC 32.4 (32.0-36.0) g/dL RDW Std Deviation 53.0 H (36.4-46.3) fL RDW Coeff of Marcelino 14.6 H (11.5-14.5) % Plt Count 140 (130-400) K/uL MPV 11.0 (9.4-12.4) fL Immature Gran % (Auto) 3.9 % Neut % (Auto) 88.2 % Lymph % (Auto) 2.5 % Franklin % (Auto) 5.1 % Eos % (Auto) 0.1 % Baso % (Auto) 0.2 % Neut # (Auto) 10.30 H (1.40-6.50) K/uL Lymph # (Auto) 0.29 L (1.2-3.4) K/uL Franklin # (Auto) 0.60 H (0.11-0.59) K/uL Eos # (Auto) 0.01 (0-0.50) K/uL Baso # (Auto) 0.02 (0-0.2) K/uL Immature Gran # (Auto) 0.45 H (0.01-0.20) K/uL Absolute Nucleated RBC 0.02 (0-0.12) K/uL Nucleated RBC % (auto) 0.2 % PT (9.0-12.0) Seconds INR (0.9-1.1) Sodium 145 (136-145) mmol/L Potassium 5.1 (3.5-5.1) mmol/L Chloride 105 (98-107) mmol/L Carbon Dioxide 28 (21-32) mmol/L Anion Gap 12 H (3-11) BUN 52 H (6-23) mg/dl Creatinine 7.21 H* (0.6-1.4) mg/dl Est Cr Clr Drug Dosing Not Reportable Est GFR ( Amer) 8.8 ml/min Est GFR (Non-Af Amer) 7.6 ml/min BUN/Creatinine Ratio 7.2 L (10-20) Glucose 87 (70-99(Fasting)) mg/dl Calcium 7.4 L (8.5-10.1) mg/dl Ionized Calcium (1.12-1.32) mmol/L Phosphorus (2.5-4.9) mg/dl Magnesium Total Bilirubin 0.7 (0.2-1.0) mg/dl AST 15 (13-39) U/L ALT 19 (7-52) U/L Alkaline Phosphatase 46 (34-104) U/L Total Protein 6.4 (6.0-8.3) gm/dl Albumin 4.0 (3.4-5.0) gm/dl Globulin 2.4 L (2.5-4.0) gm/dl Albumin/Globulin Ratio 1.7 (0.9-2) Urine Color Urine Appearance (Clear) Urine pH (4.5-7.5) Ur Specific Miles (1.000-1.030) Urine Protein (Negative) Urine Glucose (UA) (Negative) Urine Ketones (Negative) Urine Blood (Negative) Urine Nitrite (Negative) Urine Bilirubin (Negative) Urine Urobilinogen (Negative) Ur Leukocyte Esterase (Negative) Urine WBC (Auto) (0-5) /hpf Urine RBC (Auto) (0-4) /hpf U Hyaline Cast (Auto) (0-5) /lpf U Epithel Cells (Auto) (0-5) /lpf Urine Bacteria (Auto) (Negative) Nasal Screen MRSA (PCR) (Negative) Random Vancomycin SARS-CoV-2, RNA, NAAT (NEGATIVE) Diagnostic Findings Foot X-Ray 06/05/22 17:11 XR foot RT min 3V routine CLINICAL HISTORY: stump pain TECHNIQUE: 3 views of the right foot were obtained. Comparison: Comparison is made to right ankle radiographs 10/12/2021 FINDINGS: Patient is status post right midfoot amputation. Lucencies are seen within the residual talus, nonspecific. IMPRESSION: Status post application with lucencies in the bones of the foot which are nonspecific, may represent demineralization however osteomyelitis cannot be entirely excluded. If there is clinical concern, MRI can be performed. ACT 112: Negative or not required by law. Electronically signed by: Deni Blum M.D. 06/05/2022 5:42 PM Ankle MRI 06/05/22 18:42 MR ankle RT wo con HISTORY: concern for R foot amputation site osteomyelitis. TECHNIQUE: Multiplanar multisequence MRI of the right ankle was performed without intravenous contrast according to standard departmental protocol. COMPARISON STUDY: Right foot radiograph 06/05/2022. FINDINGS: The patient is status post midfoot amputation. Heterogeneous marrow signal seen throughout the distal tibia, distal fibula, calcaneus, and residual talus consistent with bone infarcts. There is abnormal marrow signal with eros naty changes involving the residual anterior talus which is highly suspicious for an osteomyelitis. This is best seen on coronal images 9 and measures approximately 2.6 cm. There is diffuse soft tissue edema within the ankle/hindfoot. No loculated fluid collections to suggest an abscess. Small effusions at the tibiotalar and subtalar joints. There is a multiloculated fluid surrounding the flexor hallucis longus tendon. IMPRESSION: 1. Status post midfoot amputation. 2. Abnormal marrow signal and erosive/destructive change at the anterior talus consistent with a site of osteomyelitis. 3. Multiloculated fluid surrounding the flexor hallucis longus tendon. This could be due to a chronic tenosynovitis. Secondary infection would be impossible to exclude by imaging. ACT 112: Negative or not required by law. Electronically signed by: Harish Espino M.D. 06/06/2022 7:33 AM PG Care Time/CCT Total # of Minutes Spent Total Time Spent with Patient: Total time spent is greater than 50% in coordination of care (as documented) at patient's floor/unit and/or counseling patient: Coding Level of Care Code 33086 SUB INP/OBS CARE 3/50MIN Diagnoses Infection of amputation site of lower extremity T87.40 ESRD (end stage renal disease) on dialysis N18.6; Z99.2 Atrial fibrillation I48.91 Anemia D64.9 Chronic pain G89.29 Chronic constipation K59.09 BPH loc w urin obs/LUTS N40.1 Psoriatic arthritis L40.50 Hypertension I10 B12 deficiency E53.8 Folate deficiency E53.8
[2022-06-06 08:50] LABS: BUN Creatinine Ratio 8.1 (10-20); Calcium 6.9 mg/dl (8.5-10.1); Creatinine Clr Calc Pharmacy 11.6 ml/min; Est GFR (African American) 8.2 ml/min; Est GFR (Non-African American) 7.1 ml/min; Magnesium 2.3 mg/dl (1.7-2.4); Phosphorus 8.5 mg/dl (2.5-4.9)
[2022-06-06] MEDS: FAMOTIDINE 20 MG in SYRINGE 3 ML IV SCH (09:21)
[2022-06-06] MEDS: MoRPHine SULFATE CR 15 MG TABCR PO SCH ×2 (09:21→20:50)
--- NOTE | 2022-06-06 09:29 | Pharmacy Report ---
Pharmacy PK ABX Note - Date of Service June 06, 2022 - Assessment and Plan Assessment 56 year old M receiving IV Vancomycin + Cefepime for treatment of osteomyelitis of partial right foot amputation site. PMH significant for renal cell carcinoma S/P left nephrectomy ESRD on he modialysis on Tuesdays & (non-compliant), afib (No longer on anticoagulation), DM, HTN, CAD, ALBA, hyperlipidemia, chronic constipation, S/P previous left BKA and right partial metatarsal amputations, S/P amputation of Right 2-4 digits on 03/18/2020, RA currently on prednisone therapy, and BPH. Pertinent microbiologic data includes: Positive MRSA Nasal Swab BC cultures pending. Day # 2 of antimicrobial therapy. Plan Vancomycin * Loading dose: 2750 mg (32mg/kg) IV x 1 given last night in ED - this was given based on incorrect weight entered in [employer] on admission to ED. * Random level = 36.2mcg/ml this AM * HD yesterday (06/05) prior to admission, nephrology consultation today, patient declined HD today, and possibly leaving A. * If patient stays he will have HD tomorrow, so will order random level with AM labs tomorrow. Cefepime 1g IV Q24 H Pharmacy will continue to follow and will adjust dose/frequency as necessary. Thank you.
--- NOTE | 2022-06-06 10:15 | Electrocardiogram Report ---
Test Reason : Blood Pressure : / mmHG Vent. Rate : 065 BPM Atrial Rate : 065 BPM P-R Int : 152 ms QRS Dur : 076 ms QT Int : 412 ms P-R-T Axes : 059 037 056 degrees QTc Int : 428 ms Sinus rhythm with Premature supraventricular complexes Otherwise normal ECG When compared with ECG of 12-OCT-2021 11:28, No significant change was found Confirmed by Finn Pollack ([id number]) on 06/06/2022 10:15:18 AM Referred By: REFERRED SELF Confirmed By:Federico Pollack
--- NOTE | 2022-06-06 10:36 | Nephrology Consultation ---
Date of Consultation June 06, 2022 Assessment & Plan (1) ESRD (end stage renal disease) on dialysis: Records from [facility] reviewed. ESRD attributed to history of nephrectomy from RCC, sFSGS (biopsy proven), and hypertension. On HD TT via AVF. I offered Jimmy short dialysis treatment here in the hospital today. He declined. He is planning to sign-out AMA and return home. He understands potential risks associated with hyperkalemia, including arrhythmia and . Sesar has been living with chronic hyperkalemia for a long time. Low potassium diet and importance of follow up for schedule HD was stressed. Urpxmkecr44.8 grams provided today. (2) Hyperkalemia: Patiromer provided now. Low K diet reviewed. Importance of compliance with HD stressed. Refused HD treatment offered today. (3) Infection of amputation site of lower extremity: Currently being treated with vancomycin and cefepime. Ortho consult pending. Concern for osteomyelitis discussed. History of Present Illness Reason for Consultation: ESRD on HD Requesting Physician: Serge Cruz MD Attending Physician: Serge Cruz MD History of Present Illness Mr. Sesar Hernandez is a 56 year-old male with ESRD. He is on maintenance HD on a TT schedule at [facility] under the care of Dr. Quijano. Sesar is non-compliant with his dialysis prescription. He states that he values quality of life and his personal goals of care are not consistent with spending more time at hemodialysis. There have been multiple discussions regarding risks associated with inadequate dialysis in the past. Sesar states that he is willing to assume all risks, including debilitated state and . Since May 15, he has only attended dialysis 3 times and each treatment he leaves after ~2 hours. He has not completed a full treatment in several months. This does not concern him. He did complete 2 hours of dialysis yesterday. To compensate for lack of clearance with HD, Sesar is regularly maintained on patiromer. He is also educated on low potassium diet. EDW is 81 kg and Sesar left HD yesterday at 81.2 kg s/p UF 2 L. Outpatient Rx is TT on a 180 Optiflux with Qb 250 and Qd 400, 2 K 2.5 calcium. He dialyzes via a L forearm AVF. Serum potassium on 05/29 was 6.0 mmol/L. Potassium on 04/24 was 6.1 mmol/L, and 03/27 6.7 mmol/L. Sesar presented to [facility] yesterday for evaluation of progressive pain and drainage from a wound on his RLE amputation site. He received antibiotic therapy with vancomycin and cefepime. Sesar has been admitted pending cultures and orthopedic consultation. 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 He told me that he plans to sign- out AMA at 1:00 this afternoon. He states that if an orthopedic consultation can't be completed he is not concerned but will work it out. He does have pain and tenderness in the stump associated with rubbing from his prosthesis. He follows with a Dr. Moore for wound and stump care. Sesar was previously on PD home therapy. This was unfortunately complicated by severe sepsis and prolonged associated hospitalization. Due to issues with treatment, he has not returned to home therapy. Allergies Allergy/AdvReac Type Severity Reaction Status Date / Time oxycodone Allergy Severe Swelling Verified 06/05/22 17:10 of throat and itchiness finasteride Allergy Intermediate Hives Verified 06/05/22 17:10 hydrocodone Allergy Intermediate Rash Verified 06/05/22 17:10 Penicillins Allergy Intermediate RASH, Verified 06/05/22 17:10 HIVES, ITCHING Home Medications Medication Instructions Recorded Confirmed Type acetaminophen 500 mg tablet 1,000 mg PO TID PRN Pain 08/12/18 06/05/22 History (Tylenol Extra Strength) lactulose 10 gram/15 mL oral 30 ml PO BID PRN Constipation #946 08/10/20 06/05/22 Rx solution mL Prosthetic supplies #1 ea 12/01/20 03/19/22 Rx RT silicone partial foot prostehsis #1 ea 07/01/21 03/19/22 Rx R hand prosthesis #1 ea 10/10/21 03/19/22 Rx amlodipine 5 mg tablet 5 mg PO HS #90 tabs 02/06/22 06/05/22 Rx tamsulosin 0.4 mg capsule 0.4 mg PO BID #180 caps 02/15/22 06/05/22 Rx ondansetron HCl 4 mg tablet 4 mg PO Q8H PRN nausea and 03/19/22 06/05/22 Rx vomiting #40 tabs lisinopril 5 mg tablet 5 mg PO DAILY #90 tabs 05/09/22 06/05/22 Rx prednisone 5 mg tablet 5 mg PO BID #180 tabs 05/09/22 06/05/22 Rx morphine 30 mg tablet,extended 30 mg PO Q12H #60 tabs 05/31/22 06/05/22 Rx release (MS Contin) clobetasol 0.05 % topical cream 1 applic topical BID PRN AFFECTED 06/05/22 06/05/22 History AREA NEEDED zolpidem 10 mg tablet 10 mg PO HS 06/05/22 06/05/22 History Patient History Medical History Atrial fibrillation AV fistula LEFT ARM Avascular necrosis of bones of both hips Chronic pain Diabetes mellitus MONITORING, NO MEDICINE TO TREAT. 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 Juan Alberto H/O hand surgery (~09/2018) Hilda 10/02/18 H/O hernia repair (~10/21/17) 10/20/2017. GETA. Grade 1 view. Escobar 2. 8.0 ETT. No issues. 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) 2nd toe, d/t embolism Status post insertion of hemodialysis catheter +MULTIPLE REVISIONS Family History Brother Liver cirrhosis secondary to ALBA Family history of diabetes mellitus Father Brain tumor Coronary heart disease Hypertension Family history of diabetes mellitus Myocardial infarction Mother Liver cancer Hypertension Family history of diabetes mellitus Breast cancer Grandmother (Maternal) Stroke Sister Family history of diabetes mellitus Ovarian cancer x2 Grandfather (Maternal) Family hx of colon cancer Colorectal cancer Prostate cancer Grandfather (Paternal) Prostate cancer Social History Smoking Status: Never smoker Second Hand Exposure: No; Do You Dip or Chew Tobacco: Yes; Tobacco Cessation Education Requested by Patient: No Hx Alcohol Use: No Hx Substance Use: No Preferred Language: Nigerian Communication Ability: Effective Visual Impairment: No Limitations Hearing Ability: Normal 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 Beliefs That Will Affect Care: None marital status: Current Living Situation: Alone current occupational status: disabled 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[employer], [employer] How many Children do You have: 2 Other Information That Helps Us Care for You: No other: lives in [place] Feels Safe at Home: Yes Safety Concerns: Feels Safe At This Time Childhood Exposure to Second-Hand Smoke: Yes Diet Comment: regular caffeine: No during the past year weight has: remained stable Dental Care, Regularly: Yes Physical Activity Frequency: 1-2 Times per Week Physical Activity Frequency Comment: walking Seatbelt Use: always Sunscreen Use: No Assistive Devices: Glasses and Prosthesis Assistive Devices Comment: Reading glasses. Review of Systems Review of Systems: All systems reviewed & are unremarkable except as noted in HPI & below Constitutional: no fever and no chills Respiratory: no dyspnea Cardiovascular: no chest pain, no palpitations and no edema Physical Exam Constitutional: well developed and + obese; no acute distress Eyes: + anicteric sclerae; no corneal abnormality ENMT: Mouth: no oral mucosal abnormality and oral mucous membranes not dry Neck: normal visual inspection, trachea midline and + thick neck Respiratory: normal respiratory effort Cardiovascular: Rate/Rhythm: regular rate Extremities: no edema Musculoskeletal: Extremities: no cyanosis and no clubbing Several digits on right hand amputated, R stump with open wound, L BKA Skin: normal turgor; no lesions Neurologic: Motor/Sensory: no tremor and no asterixis Psychiatric: Orientation: alert and oriented x 3 Results & Data ([facility]) Vital Signs (Past 12 Hours) Vital Signs Temp Resp BP Pulse Ox O2 Del Method 06/06/22 07:23 36.8 C 17 124/80 94 Room Air Laboratory Results Laboratory Results - last 24 hr 02/21/23 02/21/23 02/21/23 15:30 15:30 18:49 WBC 11.67 H RBC 3.46 L Hgb 11.0 L Hct 33.9 L MCV 98.0 MCH 31.8 MCHC 32.4 RDW Std Deviation 53.0 H RDW Coeff of Marcelino 14.6 H Plt Count 140 MPV 11.0 Immature Gran % (Auto) 3.9 Neut % (Auto) 88.2 Lymph % (Auto) 2.5 Caroline % (Auto) 5.1 Eos % (Auto) 0.1 Baso % (Auto) 0.2 Neut # (Auto) 10.30 H Lymph # (Auto) 0.29 L Caroline # (Auto) 0.60 H Eos # (Auto) 0.01 Baso # (Auto) 0.02 Immature Gran # (Auto) 0.45 H Absolute Nucleated RBC 0.02 Nucleated RBC % (auto) 0.2 PT INR Sodium 145 Potassium 5.1 Chloride 105 Carbon Dioxide 28 Anion Gap 12 H BUN 52 H Creatinine 7.21 H* Est Cr Clr Drug Dosing Not Reportable Est GFR ( Amer) 8.8 Est GFR (Non-Af Amer) 7.6 BUN/Creatinine Ratio 7.2 L Glucose 87 Calcium 7.4 L Ionized Calcium Phosphorus Magnesium Total Bilirubin 0.7 AST 15 ALT 19 Alkaline Phosphatase 46 Total Protein 6.4 Albumin 4.0 Globulin 2.4 L Albumin/Globulin Ratio 1.7 Vitamin B12 Folate Urine Color Urine Appearance Urine pH Ur Specific [place] Urine Protein Urine Glucose (UA) Urine Ketones Urine Blood Urine Nitrite Urine Bilirubin Urine Urobilinogen Ur Leukocyte Esterase Urine WBC (Auto) Urine RBC (Auto) U Hyaline Cast (Auto) U Epithel Cells (Auto) Urine Bacteria (Auto) Nasal Screen MRSA (PCR) Random Vancomycin SARS-CoV-2, RNA, NAAT NEGATIVE 06/05/22 06/05/22 06/05/22 20:57 20:57 21:49 WBC RBC Hgb Hct MCV MCH MCHC RDW Std Deviation RDW Coeff of Marcelino Plt Count MPV Immature Gran % (Auto) Neut % (Auto) Lymph % (Auto) Caroline % (Auto) Eos % (Auto) Baso % (Auto) Neut # (Auto) Lymph # (Auto) Caroline # (Auto) Eos # (Auto) Baso # (Auto) Immature Gran # (Auto) Absolute Nucleated RBC Nucleated RBC % (auto) PT INR Sodium Potassium Chloride Carbon Dioxide Anion Gap BUN Creatinine Est Cr Clr Drug Dosing Est GFR ( Amer) Est GFR (Non-Af Amer) BUN/Creatinine Ratio Glucose Calcium Ionized Calcium 0.83 L Phosphorus 7.1 H Magnesium Total Bilirubin AST ALT Alkaline Phosphatase Total Protein Albumin Globulin Albumin/Globulin Ratio Vitamin B12 Folate Urine Color Yellow Urine Appearance Clear Urine pH >= 9.0 H Ur Specific [place] 1.011 Urine Protein 2+ H Urine Glucose (UA) Trace H Urine Ketones Negative Urine Blood Negative Urine Nitrite Negative Urine Bilirubin Negative Urine Urobilinogen Negative Ur Leukocyte Esterase Negative Urine WBC (Auto) 1-5 Urine RBC (Auto) 0-4 U Hyaline Cast (Auto) 1-5 U Epithel Cells (Auto) 5-10 H Urine Bacteria (Auto) Negative Nasal Screen MRSA (PCR) Random Vancomycin SARS-CoV-2, RNA, NAAT 06/05/22 06/06/22 06/06/22 21:49 07:31 07:31 WBC 9.45 RBC 3.10 L Hgb 9.9 L Hct 31.0 L MCV 100.0 MCH 31.9 MCHC 31.9 L RDW Std Deviation 53.8 H RDW Coeff of Marcelino 14.6 H Plt Count 127 L MPV 10.8 Immature Gran % (Auto) Neut % (Auto) Lymph % (Auto) Caroline % (Auto) Eos % (Auto) Baso % (Auto) Neut # (Auto) Lymph # (Auto) Caroline # (Auto) Eos # (Auto) Baso # (Auto) Immature Gran # (Auto) Absolute Nucleated RBC Nucleated RBC % (auto) PT 10.3 INR 1.0 Sodium Potassium Chloride Carbon Dioxide Anion Gap BUN Creatinine Est Cr Clr Drug Dosing Est GFR ( Amer) Est GFR (Non-Af Amer) BUN/Creatinine Ratio Glucose Calcium Ionized Calcium Phosphorus Magnesium Total Bilirubin AST ALT Alkaline Phosphatase Total Protein Albumin Globulin Albumin/Globulin Ratio Vitamin B12 Folate Urine Color Urine Appearance Urine pH Ur Specific [place] Urine Protein Urine Glucose (UA) Urine Ketones Urine Blood Urine Nitrite Urine Bilirubin Urine Urobilinogen Ur Leukocyte Esterase Urine WBC (Auto) Urine RBC (Auto) U Hyaline Cast (Auto) U Epithel Cells (Auto) Urine Bacteria (Auto) Nasal Screen MRSA (PCR) Positive A Random Vancomycin SARS-CoV-2, RNA, NAAT 02/22/23 02/22/23 02/22/23 07:31 07:31 09:03 WBC RBC Hgb Hct MCV MCH MCHC RDW Std Deviation RDW Coeff of Marcelino Plt Count MPV Immature Gran % (Auto) Neut % (Auto) Lymph % (Auto) Caroline % (Auto) Eos % (Auto) Baso % (Auto) Neut # (Auto) Lymph # (Auto) Caroline # (Auto) Eos # (Auto) Baso # (Auto) Immature Gran # (Auto) Absolute Nucleated RBC Nucleated RBC % (auto) PT INR Sodium 142 Potassium 6.0 H Chloride 107 Carbon Dioxide 24 Anion Gap 11 BUN 62 H Creatinine 7.65 H* D Est Cr Clr Drug Dosing 11.6 Est GFR ( Amer) 8.2 Est GFR (Non-Af Amer) 7.1 BUN/Creatinine Ratio 8.1 L Glucose 97 Calcium 6.9 L Ionized Calcium Phosphorus 8.5 H Magnesium 2.3 Total Bilirubin AST ALT Alkaline Phosphatase Total Protein Albumin Globulin Albumin/Globulin Ratio Vitamin B12 Pending Folate Pending Urine Color Urine Appearance Urine pH Ur Specific [place] Urine Protein Urine Glucose (UA) Urine Ketones Urine Blood Urine Nitrite Urine Bilirubin Urine Urobilinogen Ur Leukocyte Esterase Urine WBC (Auto) Urine RBC (Auto) U Hyaline Cast (Auto) U Epithel Cells (Auto) Urine Bacteria (Auto) Nasal Screen MRSA (PCR) Random Vancomycin 36.2 H* SARS-CoV-2, RNA, NAAT PG Care Time/CCT Total # of Minutes Spent Total Time Spent with Patient: Total time spent is greater than 50% in coordination of care (as documented) at patient's floor/unit and/or counseling patient: Coding Level of Care Code INP/OBS CONSULT LVL 4, 60 MIN Diagnoses ESRD (end stage renal disease) on dialysis N18.6; Z99.2 Hyperkalemia E87.5 Infection of amputation site of lower extremity T87.40
[2022-06-06] MEDS ORDERED: PATIROMER CALCIUM SORBITEX 8.4 GM PACK PO ONE (11:00)
[2022-06-06] MEDS ORDERED: HYDROmorphone INJ 0.5 MG/0.5 ML SYR IV PRN ×3 (12:16→17:29)
[2022-06-06] MEDS: ACETAMINOPHEN 500 MG TAB PO PRN (15:29)
[2022-06-06] MEDS ORDERED: MoRPHine SULFATE 2 MG/ML CARP IV STA (16:32)
[2022-06-06] MEDS ORDERED: MoRPHine SULFATE 2 MG/ML CARP IV PRN (16:43)
[2022-06-06] MEDS ORDERED: MoRPHine SULFATE 4 MG/ML 1 ML CARP\\VIAL IV PRN (16:43)
[2022-06-06] MEDS ORDERED: MoRPHine SULFATE 4 MG/ML 1 ML CARP\\VIAL IV STA (16:52)
[2022-06-06] MEDS ORDERED: LORazepam 2 MG/1 ML VIAL IV STA (17:04)
[2022-06-06] MEDS ORDERED: LORazepam 2 MG/1 ML VIAL ONE (17:06)
[2022-06-06] MEDS ORDERED: HYDROmorphone INJ 1 MG/ML SYRINGE IV STA (17:18)
[2022-06-06] MEDS ORDERED: HYDROmorphone INJ 1 MG/ML SYRINGE IV PRN (17:19)
[2022-06-06] MEDS ORDERED: HYDROmorphone INJ 1 MG/ML SYRINGE ONE (17:22)
[2022-06-06] MEDS: CYANOCOBALAMIN 1000 MCG/ML VIAL IM SCH (17:27)
[2022-06-06] MEDS ORDERED: LORazepam 2 MG/1 ML VIAL IV PRN (17:28)
[2022-06-06] MEDS: ZOLPIDEM TARTRATE 10 MG TAB PO SCH (20:50)
[2022-06-06] MEDS: LACTULOSE SYRUP 20 GM/30 ML UDC PO SCH ×2 (20:51→20:55)
[2022-06-06] MEDS: CEFEPIME 1,000 MG in SYRINGE 0 ML IV SCH (20:52)
[2022-06-06] MEDS: amLODIPine BESYLATE 5 MG TAB PO SCH (20:52)
[2022-06-07] MEDS: HYDROmorphone INJ 1 MG/ML SYRINGE IV PRN ×5 (02:30→22:58)
[2022-06-07] MEDS: TAMSULOSIN HCL 0.4 MG CAP PO SCH ×2 (08:04→20:24)
[2022-06-07] MEDS: LACTULOSE SYRUP 20 GM/30 ML UDC PO SCH ×2 (08:07→20:26)
--- NOTE | 2022-06-07 08:18 | Hospitalist Progress Note ---
Date of Service June 07, 2022 Assessment & Plan (1) Infection of amputation site of lower extremity: Plan: Recently on cefdinir x 3 weeks, stopped outpatient as told looked good by wound care Presented w/ continued drainage/worsening pain to RLE amputation site, prior seen by Dr Buddy Mccarthyay Status post application with lucencies in the bones of the foot which are nonspecific, may represent demineralization however osteomyelitis cannot be entirely excluded. If there is clinical concern, MRI can be performed. MRI obtained to eval for underlying AOM, impression: * 1. Status post midfoot amputation. * 2. Abnormal marrow signal and erosive/destructive change at the anterior talus consistent with a site of osteomyelitis. * 3. Multiloculated fluid surrounding the flexor hallucis longus tendon. This could be due to a chronic tenosynovitis. Secondary infection would be impossible to exclude by imaging. Remains on Vanco/Cefepime -- vanco trough elevated (weight incorrect in system, was 114kg when actually ~85kg -- per pharmacy will be good until next week for Vanco dosing, they are continuing to monitor). Hx MRSA in ankle cx in past WBC 11.6k -> 9.4k -> 8.9k Blood cultures NGTD Cx if any drainage occurs Orthopedics consulted --lengthy discussion last evening (patient does not remember having the encounter,, heavily medicated for pain) and patient agreeable to remain inpatient and go to OR tomorrow for incision/debridement, tenosynoectomy flexor hallucis longus tendon and possible debridement 3cm foot ulcer/possible evacuation of abscess ID consulted -- rec to hold further abx for better cultures if able. 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, notes report "no control despite use of that") Multiple 1x doses provided, seen this morning and additional 1mg IV x 1 provided and decreased frequency to Q2h prn 0.5mg-1mg based on pain scale Remains on his usual MS contin BID Tylenol also available prn pain/fever NPO at midnight for OR tomorrow (2) ESRD (end stage renal disease) on dialysis: Plan: Currently gets HD once weekly on Tuesdays, had a full session today prior to coming to the ED (misses frequently) Nephrology on consult Patiromer provided 06/06 for K 6, 5.7 on repeat labs Continue low K diet Refused HD for today but then was agreeable to 2hr session -- planned for this morning Monitor labs on repeat (3) Atrial fibrillation: Plan: Stable , examines in SR -- SR w/ PVCs on EKG Has not been on Eliquis since September of 2021, unsure of the exact reason at this time but it appears that it may have been due to bleeding and bruising issues -- rec'd f/u PCP regarding this and likely should be on such to prevent stroke risk/clots messaged PCP given prior notes indicate taking still 5mg BID however patient states he is NOT on this medication Monitor K/mag Tx anemia w/ B12/folate supplementation and patient to get venofer outpt w/ dialysis (if he goes, per discussion with Dr Barreto) Check CT head given confusion overnight and reporting not seeing Dr Goodwin but was alert/oriented for myself and suspect issues last evening from repeated opiate use for pain control (4) Anemia: Plan: hgb appears in 10-12 range, 11 on admit with ?lab error of 9.9 yesterday given 11 on AM labs B12/folate low as above, replacement ordered iron panel 22, TIBC low/unsat low, trans % sat only 15 but ferritin elevation 1063 likely reactive given current infection outpt f/u for replacement w/ HD Monitor CBC in AM (5) Chronic pain: Plan: Continue home MS contin Morphine not as effective, switched to Dilaudid -- DECREASED to Q2H for pain control 0.5-1mg as needed ?consideration for gabapentin for neuropathy type pain (6) Chronic constipation: Plan: Continue prn lactulose -- changed to BID, patient refusing this and stated moved his bowels yesterday. Does have +BS on exam but is distended monitor BMs, encourage use of lactulose if not moving them tomorrow could also consider giving dose of Relistor for opiate induced constipation (7) BPH loc w urin obs/LUTS: Plan: Continue flomax (8) Psoriatic arthritis: Plan: Normally on prednisone 5mg PO BID Hold PO pred for now with current infection , NOT HAVING ANY HYPOTENSION Do suspect some degree of overall pain could be from having steroids held as well, but given current infection would avoid unless any noted stress dosing required (9) Hypertension: Plan: Stable Continue amlodipine -Patient is also on Lisinopril as prescribed by Nephrology -- held for AM given K/Cr BP currently 139/94 Hydralazine added prn for SBP>195 or DBP >95 (10) B12 deficiency: Plan: checked due to anemia/borderline MCV --> B12 LOW at 142 -- IM replacement while inpatient and would continue PO at d/c (11) Folate deficiency: Plan: checked due to anemia/borderline MCV --> Folate LOW 4.39, PO replacement ordered and would continue at discharge Plan continued inpatient stay NPO at midnight for OR tomorrow depending course may benefit from monitored bed post-operatively check CXR pre-op, EKG done day prior (no CP/SOB reported) Admission and Anticipated Discharge Date Admission Date: June 05, 2022 Supervising Physician Co-Signing Physician Notes The patient was not seen by me. The chart was reviewed. Case discussed with EVENS Velasquez. Agree with assessment and plan Subjective Eval this morning, in tears reporting uncontrolled pain to his foot. Currently 930am, got dose of Dilaudid at ~815, asked RN to administer 1mg IV x 1 now and changed dosing to q2h from q4h. Did just get his AM dose of MS Contin. Seen by Dr Goodwin last evening, witnessed by myself, however patient had been heavily medicated for pain and states he does not remember. States he needs medical providers to stop telling him he needs dialysis and this and that and that his main issue is pain and the infection in the foot. Discussed use of antibiotics to help with foot and need for OR (planned for tomorrow) and that HD will help us with dosing. Per discussion with Dr Barreto, patient will undergo 2hr treatment. Physical Exam Physical Exam: General: chronically ill appearing male, tearful and crying stating severe pain to his RLE HEENT: head normocephalic, atraumatic, mm slightly dry, trachea midline Resp: CTAB, diminished int he bases without significant w/r, on room air CV: RRR, +systolic murmur, no significant edema, pulses palpable GI: +BS, DISTENDED, nontender : no kaiser MSK/Neuro: RLE with ulceration at distal residual foot, no drainage at present, flap pink and warm, exquisitely tender to palpation around entire area/hypersensitive, area of fluctuance appreicated along hindfoot, markedly tender, limited movement due to pain R hand w/ prior amputations to several digits prior s/p BKA on left well formed/no signs of infection Psych: AOx3 but irritable, upset, and crying about not having pain addressed and conversations regarding dialysis Results & Data Results & Data ([facility]) Vital Signs (Past 12 Hours) Vital Signs Temp Pulse Pulse Resp BP Pulse Ox O2 Del Method 06/07/22 07:39 37.3 C 97 H 18 143/91 H 94 Room Air 06/06/22 20:49 36.9 C 83 16 142/85 H 94 Room Air Laboratory Results 06/07/22 06/07/22 06/07/22 Range/Units 07:59 07:59 07:59 WBC 8.98 (4.8-10.8) K/ul RBC 3.49 L (4.70-6.10) M/uL Hgb 11.0 L (14.0-18.0) g/dl Hct 36.2 L (42.0-52.0) % MCV 103.7 H (80.0-100.0) fL MCH 31.5 (25.0-34.0) pg MCHC 30.4 L (32.0-36.0) g/dL RDW Std Deviation 56.7 H (36.4-46.3) fL RDW Coeff of Marcelino 14.9 H (11.5-14.5) % Plt Count 123 L (130-400) K/uL MPV 10.7 (9.4-12.4) fL Sodium 142 (136-145) mmol/L Potassium 5.7 H (3.5-5.1) mmol/L Chloride 111 H (98-107) mmol/L Carbon Dioxide 18 L (21-32) mmol/L Anion Gap 13 H (3-11) BUN 69 H (6-23) mg/dl Creatinine 8.67 H* D (0.6-1.4) mg/dl Est Cr Clr Drug Dosing 10.2 ml/min Est GFR ( Amer) 7.0 ml/min Est GFR (Non-Af Amer) 6.1 ml/min BUN/Creatinine Ratio 8.0 L (10-20) Glucose 73 (70-99(Fasting)) mg/dl Calcium 7.6 L (8.5-10.1) mg/dl Magnesium 2.0 (1.7-2.4) mg/dl Iron 22 L (35-175) mcg/dl TIBC 148 L (250-450) mcg/dl Unsaturated IBC 126 L (155-355) mcg/dl Transferrin % Sat 15 L (20-50) % Ferritin 1063.5 H (8-388) ng/ml Total Creatine Kinase (30-223) U/L TSH 3.289 (0.300-4.500) uIu/ml Random Vancomycin (10-20) mcg/ml 06/07/22 06/06/22 06/06/22 Range/Units 07:59 07:31 07:31 WBC (4.8-10.8) K/ul RBC (4.70-6.10) M/uL Hgb (14.0-18.0) g/dl Hct (42.0-52.0) % MCV (80.0-100.0) fL MCH (25.0-34.0) pg MCHC (32.0-36.0) g/dL RDW Std Deviation (36.4-46.3) fL RDW Coeff of Marcelino (11.5-14.5) % Plt Count (130-400) K/uL MPV (9.4-12.4) fL Sodium (136-145) mmol/L Potassium (3.5-5.1) mmol/L Chloride (98-107) mmol/L Carbon Dioxide (21-32) mmol/L Anion Gap (3-11) BUN (6-23) mg/dl Creatinine (0.6-1.4) mg/dl Est Cr Clr Drug Dosing ml/min Est GFR ( Amer) ml/min Est GFR (Non-Af Amer) ml/min BUN/Creatinine Ratio (10-20) Glucose (70-99(Fasting)) mg/dl Calcium (8.5-10.1) mg/dl Magnesium (1.7-2.4) mg/dl Iron (35-175) mcg/dl TIBC (250-450) mcg/dl Unsaturated IBC (155-355) mcg/dl Transferrin % Sat (20-50) % Ferritin (8-388) ng/ml Total Creatine Kinase Cancelled 102 (30-223) U/L TSH (0.300-4.500) uIu/ml Random Vancomycin 27.0 H* (10-20) mcg/ml PG Care Time/CCT Total # of Minutes Spent Total Time Spent with Patient: Total time spent is greater than 50% in coordination of care (as documented) at patient's floor/unit and/or counseling patient: Coding Level of Care Code 11876 SUB INP/OBS CARE 3/50MIN Diagnoses Infection of amputation site of lower extremity T87.40 ESRD (end stage renal disease) on dialysis N18.6; Z99.2 Atrial fibrillation I48.91 Anemia D64.9 Chronic pain G89.29 Chronic constipation K59.09 BPH loc w urin obs/LUTS N40.1 Psoriatic arthritis L40.50 Hypertension I10 B12 deficiency E53.8 Folate deficiency E53.8
[2022-06-07 08:41] LABS: Hematocrit (blood only) 36.2 % (42.0-52.0); Mean Corpuscular Hemoglobin 31.5 pg (25.0-34.0); Mean Corpuscular Hgb Conc 30.4 g/dL (32.0-36.0); Mean Corpuscular Volume 103.7 fL (80.0-100.0); Mean Platelet Volume 10.7 fL (9.4-12.4); Platelet Count 123 K/uL (130-400); RDW Coefficient of Variation 14.9 % (11.5-14.5); RDW Standard Deviation 56.7 fL (36.4-46.3); Red Blood Count 3.49 M/uL (4.70-6.10); White Blood Count 8.98 K/ul (4.8-10.8)
--- NOTE | 2022-06-07 08:46 | Consultation Report ---
DATE OF CONSULTATION: 06/06/2022. HISTORY: This is a 56-year-old gentleman seen at request of Dr. Anai Gaspar and Dr. Em Brannon for worsened residual right Chopart amputation initially performed by Dr. Ulloa at [facility] [place] in 2 020 as a result of dry gangrene. The patient apparently had presented to [facility] Emergency Department on 06/05/2022 due to concerns for an infection at his distal right foot amputa tion site, which was a Chopart amputation. Apparently, the patient had worsening symptoms of medial- sided foot pain over the past 2 to 3 weeks and he had had worsening of an ulcer at the distal aspect of the right residual foot that he had noticed most likely as a result of too much pressure from his prosthesis, which was eventually adjusted. He notes that he has chronic drainage from the wound site , which has been stable and intermittently healed; however, it has worsened over the past approximate ly 2 weeks. The visit to the Emergency Department is determined by pain and swelling in the right re sidual foot. He attends dialysis and has somewhat erratic schedule due to issues with noncompliance as noted by Dr. Barreto's note. He does make urine and he has noticed no change in his urine frequency o r volume. The patient was on Eliquis and that is in question regarding his need to continue that due to history of AFib with RVR during an ICU admission at [facility]. The patient understands that he has a complicated medical history and states he has never been diabetic. PAST MEDICAL HISTORY: AFib with history of RVR, AV fistula, avascular necrosis of bones of both hips and right residual lower extremity chronic pain, question diabetes mellitus, diverticulosis, dyslipi demia, ESRD, stage IV, focal segmental glomerulosclerosis, history of gangrene of the right foot, his tory of renal cell carcinoma, hypertension, ischemic ulcers of the right foot, peripheral arterial di sease, scrotal swelling, urinary incontinence. PAST SURGICAL HISTORY: Status post left below-knee amputation in 12/2019. previous amputation of se cond, third, and fourth digits of the right hand in 2019, previous Chopart amputation of right foot i n 03/[facility] by Dr. Ulloa, history of hand surgery in 2019, hernia repair in 2018, hist ory of nephrectomy of left due to renal cell carcinoma in 2016, history of abdominal surgery, periton eal catheter insertion and revision, history of umbilical hernia repair in 2019, status post AV fistu la creation on the left by Dr. Ulloa, status post arteriovenous (AV) fistula repair, multiple; statu s post amputation of right foot second toe due to embolism in 09/2019, multiple insertion of the hemo dialysis catheters with multiple revisions. ALLERGIES: OXYCODONE with swelling of the throat and itchiness, FINASTERIDE with hives, HYDROCODONE with rash, PENICILLINS with rash, hives, itching. MEDICATIONS: Please note the extensive medication list in the medical history. SOCIAL HISTORY: The patient admits to occasional use of smokeless tobacco, maybe once or twice every 2 weeks. Denies cigarette smoking. Denies drug use. Denies alcohol abuse. He is disabled. He li ves at home and he is . He lives in [place]. PHYSICAL EXAMINATION: This is a 56-year-old gentleman, who is lying supine in the hospital bed. He is in no obvious discomfort. At the right residual lower extremity, he has a Chopart amputation with approximately 3 cm ulceration at the distal right residual foot. The flap 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 is irregular, likely due to the history of gangrene. There is an area of slight fluctuance and fullness along the medial hindfoot, this is markedly tender to palpation. He has sensation on the right residual limb; however, it is hypersensitive. Pulses are palpable, 1/4 of right foot dorsalis pedis and posterior tibial. There is a scant amount of discharge at the distal ulceration of the right foot. The flap; however, is pink and warm. He has limited motion of the right ankle for dorsiflexion, plantarflexion , inversion, and eversion. The heel pad is viable. No evidence of fat pad atrophy. Left lower extr emity, status post below-knee amputation with a well-formed residual limb. Radiographs and MRI review demonstrate what appears to be an abscess along the medial hindfoot, speci fically around the tarsal tunnel. There is an enhancing rim of tenosynovium around the flexor halluc is longus tendon, which appeared to be chronic tenosynovitis with surrounding abscess. Abnormal guanaco ow signal at the anterior distal talus with marrow signal with erosive changes suspicious for osteomy elitis, measuring approximately 2.6 cm in singular dimension. Multiloculated fluid surrounding the f lexor hallucis longus tendon. Multiple bone infarcts. IMPRESSION: 1. Right foot osteomyelitis of the distal talus. 2. Tenosynovitis of flexor hallucis longus tendon with possible abscess. 3. A 3-cm ulceration, right distal residual foot. 4. 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 5. End-stage renal disease with multiple medical comorbidities. RECOMMENDATION: After a lengthy discussion with the patient, recommendation at this time is for open excision of osteomyelitis of the anterior distal talus and tenosynovectomy, possible evacuation of a bscess, right medial hindfoot. The patient will continue on IV antibiotics. Recommend swab the dist al ulceration of the right foot for guidance for antibiotic therapy and the patient would not tolerat e attempted needle aspiration of the medial hindfoot at this time. The patient will be scheduled for surgery, n.p.o. on after midnight for preparation for surgery on Saturday. Maintain nonweigh tbearing if possible bilateral lower extremities. Thank you for the opportunity to consult in care of this patient. Job ID: [id number]
[2022-06-07 08:48] LABS: Calcium 7.6 mg/dl (8.5-10.1); Potassium 5.7 mmol/L (3.5-5.1)
[2022-06-07] MEDS ORDERED: THIAMINE HCL 100 MG in SYRINGE 9 ML IV STA (08:57)
[2022-06-07] MEDS: CYANOCOBALAMIN 1000 MCG/ML VIAL IM SCH (09:02)
[2022-06-07] MEDS: FOLIC ACID 400 MCG TAB PO SCH (09:03)
[2022-06-07 09:11] LABS: Creatinine Clr Calc Pharmacy 10.2 ml/min; Est GFR (Non-African American) 6.1 ml/min
[2022-06-07] MEDS: MoRPHine SULFATE CR 15 MG TABCR PO SCH ×2 (09:16→21:31)
[2022-06-07] MEDS: FAMOTIDINE 20 MG in SYRINGE 3 ML IV SCH (09:17)
[2022-06-07 09:18] LABS: Ferritin 1063.5 ng/ml (8-388)
[2022-06-07] MEDS ORDERED: HYDROmorphone INJ 1 MG/ML SYRINGE IV STA ×2 (09:25→23:30)
--- NOTE | 2022-06-07 09:46 | Pharmacy Report ---
Pharmacy PK ABX Note - Date of Service June 07, 2022 - Assessment and Plan Assessment 56 year old M receiving IV Vancomycin + Cefepime for treatment of osteomyelitis of partial right foot amputation site. PMH significant for renal cell carcinoma S/P left nephrectomy ESRD on he modialysis on Tuesdays & (non-compliant), afib (No longer on anticoagulation), DM, HTN, CAD, ALBA, hyperlipidemia, chronic constipation, S/P previous left BKA and right partial metatarsal amputations, S/P amputation of Right 2-4 digits on 03/18/2020, RA currently on prednisone therapy, and BPH. Pertinent microbiologic data includes: Positive MRSA Nasal Swab BC cultures No Growth Day # 3 of antimicrobial therapy. UO yesterday = 600ml Patient scheduled for surgical debridement of osteomyelitis tomorrow with Dr Mora. Plan Vancomycin * Loading dose: 2750 mg (32mg/kg) IV x 1 given 06/05 @1912 - this was given based on incorrect weight entered in [facility] on admission to ED. * Random level = 27mcg/ml this AM * No HD yesterday, scheduled for today, continue to hold Vancomycin for level > 25mcg/ml * Recheck random Vancomycin level tomorrow morning Cefepime 1g IV Q24 H Pharmacy will continue to follow and will adjust dose/frequency as necessary. Thank you.
[2022-06-07] MEDS: ACETAMINOPHEN 500 MG TAB PO PRN (13:40)
--- NOTE | 2022-06-07 13:53 | Infectious Disease Consult ---
Date of Consultation June 07, 2022 Assessment & Plan (1) Osteomyelitis: ID consult requested for osteomyelitis of right foot in this 56-year-old male, past medical history of atrial fibrillation, diabetes, psoriatic arthritis on prednisone 10mg daily, ESRD, on HD Saturday//Saturday, hypertension, jordon l cell cancer, status post nephrectomy, peripheral arterial disease, status post left BKA, status post amputation partial right foot 03/18/2020 secondary to dry gangrene, who presented to the ED on 06/05/2022 reporting pain in his right stump along with drainage from right lower extremity amputation site. Patient reported foot was amputated in January 2021. He had been following at wound care clinic for a chronic wound at the site of his partial right foot amputation. He was previously on cefdinir for possible acute infection, but antibiotics were stopped several weeks ago by wound care clinic as they thought infection was adequately treated. Wound had been caused by too much pressure from his prosthesis and wound care clinic had made an adjustment to the prosthesis. He reported chronic drainage from the wound site. He denied any fevers, chills, shortness of breath, or GI complaints. In the ED, temperature was 36.9, heart rate 83, blood pressure 182/83, respiratory rate 18, O2 saturation 96% on room air. Admission labs significant for WBC 11.67, 88.2% neutrophils, 3.9% immature granulocytes. Right foot x-ray could not exclude osteomyelitis. #R foot osteomyelitis -MRI showed abnormal marrow signal and erosive/destructive change of the anterior talus consistent with site of osteomyelitis and multiloculated fluid surrounding the flexor hallucis longus tendon which could be due to chronic tenosynovitis but secondary infection was not possible to exclude -Patient was started on cefepime 1 g IV every 24 and vancomycin dosed by pharmacy on 06/05. -06/05 nasal MRSA screen positive. 06/05 blood cultures are no growth to date. -Prior cultures reviewed in EMR.No recent cultures. 10/13/2020 in the ankle wound culture grew MRSA susceptible to tetracycline. -WBC has improved to ~9. -Pt was seen by orthopedic surgery who recommendedopen excision of osteomyelitis of the anterior distal talus and tenosynovectomy, possible evacuation of abscess, right medial hindfoot scheduled for tomorrow. -Pt has agreed to stay for surgery per discussion today with hospitalist. Pt was off floor for dialysis this AM. #ESRD on HD #reported allergy to PCN Plan Rec: Would hold further empiric vancomycin and cefepime in setting of clinical stability and absence of recent cultures to guide treatment. Vancomycin level noted to be elevated, and pt reportedly had been refusing dialysis this AM but was off floor for dialysis this AM when went to room. Pt would not have been able to be treated with empiric antibiotics for osteo without deep cultures and evaluation for collections that may require drainage, and has now agreed to OR tomorrow. F/u OR findings and OR cultures. Discussed with hospitalist. Consultation Information This patient recommendation is based on a telemedicine consult request which was completed asynchronously through chart review and information provided by the primary physician. The patient was not seen or examined today. The evaluation is consultative in nature and all patient care and treatment decisions can either be accepted or rejected by the patient's primary hospital-based treating physician using their own independent medical judgment for their patient. [employer] contact information: Please call [facility] . (Phone Number For Physician Use Only) Time Spent Reviewing Chart: 31+ minutes History of Present Illness Attending Physician: Serge Cruz MD History of Present Illness ID consult requested for osteomyelitis of right foot in this 56-year-old male, past medical history of atrial fibrillation, diabetes, psoriatic arthritis on prednisone 10mg daily, ESRD, on HD Saturday//Saturday, hypertension, renal cell cancer, status post nephrectomy, peripheral arterial disease, status post left BKA, status post amputation partial right foot 03/18/2020 secondary to dry gangrene, who presented to the ED on 06/05/2022 reporting pain in his right stump along with drainage from right lower extremity amputation site. Patient reported foot was amputated in January 2021. He had been following at wound care clinic for a chronic wound at the site of his partial right foot amputation. He was previously on cefdinir for possible acute infection, but antibiotics were stopped several weeks ago by wound care clinic as they thought infection was adequately treated. Wound had been caused by too much pressure from his prosthesis and wound care clinic had made an adjustment to the prosthesis. He reported chronic drainage from the wound site. He denied any fevers, chills, shortness of breath, or GI complaints. In the ED, temperature was 36.9, heart rate 83, blood pressure 182/83, respiratory rate 18, O2 saturation 96% on room air. Admission labs significant for WBC 11.67, 88.2% neutrophils, 3.9% immature granulocytes. Right foot x-ray could not exclude osteomyelitis. MRI showed abnormal marrow signal and eros naty/destructive change of the anterior talus consistent with site of osteomyelitis and multiloculated fluid surrounding the flexor hallucis longus tendon which could be due to chronic tenosynovitis but secondary infection was not possible to exclude by imaging. Patient with reported allergy to penicillin (rash/hives). Patient was started on cefepime 1 g IV every 24 and vancomycin dosed by pharmacy on 06/05. 06/05 nasal MRSA screen positive. 06/05 blood cultures are no growth to date. Prior cultures reviewed in EMR. 10/13/2020 in the ankle wound culture grew MRSA susceptible to tetracycline. WBC has improved to ~9. Pt was seen by orthopedic surgery who recommendedopen excision of osteomyelitis of the anterior distal talus and tenosynovectomy, possible evacuation of abscess, right medial hindfoot scheduled for tomorrow. Pt has agreed to stay for surgery per discussion today with hospitalist. Pt was off floor for dialysis this AM. Allergies Allergy/AdvReac Type Severity Reaction Status Date / Time oxycodone Allergy Severe Swelling Verified 06/05/22 17:10 of throat and itchiness finasteride Allergy Intermediate Hives Verified 06/05/22 17:10 hydrocodone Allergy Intermediate Rash Verified 06/05/22 17:10 Penicillins Allergy Intermediate RASH, Verified 06/05/22 17:10 HIVES, ITCHING Home Medications Medication Instructions Recorded Confirmed Type acetaminophen 500 mg tablet 1,000 mg PO TID PRN Pain 08/12/18 06/05/22 History (Tylenol Extra Strength) lactulose 10 gram/15 mL oral 30 ml PO BID PRN Constipation #946 08/10/20 06/05/22 Rx solution mL Prosthetic supplies #1 ea 12/01/20 03/19/22 Rx RT silicone partial foot prostehsis #1 ea 07/01/21 03/19/22 Rx R hand prosthesis #1 ea 10/10/21 03/19/22 Rx amlodipine 5 mg tablet 5 mg PO HS #90 tabs 02/06/22 06/05/22 Rx tamsulosin 0.4 mg capsule 0.4 mg PO BID #180 caps 02/15/22 06/05/22 Rx ondansetron HCl 4 mg tablet 4 mg PO Q8H PRN nausea and 03/19/22 06/05/22 Rx vomiting #40 tabs lisinopril 5 mg tablet 5 mg PO DAILY #90 tabs 05/09/22 06/05/22 Rx prednisone 5 mg tablet 5 mg PO BID #180 tabs 05/09/22 06/05/22 Rx morphine 30 mg tablet,extended 30 mg PO Q12H #60 tabs 05/31/22 06/05/22 Rx release (MS Contin) clobetasol 0.05 % topical cream 1 applic topical BID PRN AFFECTED 06/05/22 06/05/22 History AREA NEEDED zolpidem 10 mg tablet 10 mg PO HS 06/05/22 06/05/22 History Patient History Medical History Atrial fibrillation AV fistula LEFT ARM Avascular necrosis of bones of both hips Chronic pain Diabetes mellitus MONITORING, NO MEDICINE TO TREAT. Diverticulosis Dyslipidemia ESRD (end stage renal disease) on dialysis FSGS (focal segmental glomerulosclerosis) Gangrene of toe of right foot History of renal cell cancer Hypertension Ischemic ulcer of toe of right foot Peripheral arterial disease Scrotal swelling Urinary incontinence Surgical History Acquired absence of left leg below knee (01/11/20) Acquired absence of right finger(s) (03/18/20) 2n-4th digits Acquired absence of right foot (03/18/20) secondary to dry gangrene, [facility] Juan Alberto H/O hand surgery (~09/2018) Hilda 10/02/18 H/O hernia repair (~10/21/17) 10/20/2017. GETA. Grade 1 sujey. Escobar 2. 8.0 ETT. No issues. 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) 2nd toe, d/t embolism Status post insertion of hemodialysis catheter +MULTIPLE REVISIONS Family History Brother Liver cirrhosis secondary to ALBA Family history of diabetes mellitus Father Brain tumor Coronary heart disease Hypertension Family history of diabetes mellitus Myocardial infarction Mother Liver cancer Hypertension Family history of diabetes mellitus Breast cancer Grandmother (Maternal) Stroke Sister Family history of diabetes mellitus Ovarian cancer x2 Grandfather (Maternal) Family hx of colon cancer Colorectal cancer Prostate cancer Grandfather (Paternal) Prostate cancer Social History Smoking Status: Never smoker Second Hand Exposure: No; Do You Dip or Chew Tobacco: Yes; Tobacco Cessation Education Requested by Patient: No Hx Alcohol Use: No Hx Substance Use: No Preferred Language: Telugu Communication Ability: Effective Visual Impairment: No Limitations Hearing Ability: Normal Wheel Presser Required: No Beliefs That Will Affect Care: None marital status: Current Living Situation: Alone current occupational status: disabled 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[employer], [employer], [place] How many Children do You have: 2 Other Information That Helps Us Care for You: No other: lives in [place] Feels Safe at Home: Yes Safety Concerns: Feels Safe At This Time Childhood Exposure to Second-Hand Smoke: Yes Diet Comment: regular caffeine: No during the past year weight has: remained stable Dental Care, Regularly: Yes Physical Activity Frequency: 1-2 Times per Week Physical Activity Frequency Comment: walking Seatbelt Use: always Sunscreen Use: No Assistive Devices: Prosthesis and Wheelchair Assistive Devices Comment: Reading glasses. Results & Data ([facility]) Vital Signs (Past 12 Hours) Vital Signs Temp Pulse Pulse Pulse Resp BP BP 06/07/22 13:37 37.8 C H 106 H 18 129/94 06/07/22 12:49 37.0 C 101 H 18 144/99 H 06/07/22 12:00 37.8 C H 06/07/22 11:30 105 H 125/103 H 06/07/22 11:00 103 H 133/92 06/07/22 12:10 37.8 C H 97 H 121/89 06/07/22 10:30 97 H 142/91 H 06/07/22 10:15 94 H 128/87 06/07/22 10:06 92 H 117/79 06/07/22 09:56 37.7 C H 92 H 06/07/22 07:39 37.3 C 97 H 18 143/91 H Pulse Ox O2 Del Method 06/07/22 13:37 97 Room Air 06/07/22 12:49 95 Room Air 06/07/22 12:00 06/07/22 11:30 06/07/22 11:00 06/07/22 12:10 06/07/22 10:30 06/07/22 10:15 06/07/22 10:06 06/07/22 09:56 06/07/22 07:39 94 Room Air Laboratory Results 06/05/22 18:45 Aerobic Blood Culture - Preliminary Blood No growth in Aerobic bottle after 24 hours. Anaerobic Blood Culture - Final 06/05/22 18:45 Aerobic Blood Culture - Preliminary Blood No growth in Aerobic bottle after 24 hours. Anaerobic Blood Culture - Final 06/07/22 06/07/22 06/07/22 07:59 07:59 07:59 WBC 8.98 RBC 3.49 L Hgb 11.0 L Hct 36.2 L MCV 103.7 H MCH 31.5 MCHC 30.4 L RDW Std Deviation 56.7 H RDW Coeff of Marcelino 14.9 H Plt Count 123 L MPV 10.7 Sodium 142 Potassium 5.7 H Chloride 111 H Carbon Dioxide 18 L Anion Gap 13 H BUN 69 H Creatinine 8.67 H* D Est Cr Clr Drug Dosing 10.2 Est GFR ( Amer) 7.0 Est GFR (Non-Af Amer) 6.1 BUN/Creatinine Ratio 8.0 L Glucose 73 Calcium 7.6 L Magnesium 2.0 Iron 22 L TIBC 148 L Unsaturated IBC 126 L Transferrin % Sat 15 L Ferritin 1063.5 H Total Creatine Kinase TSH 3.289 Random Vancomycin 06/07/22 06/06/22 06/06/22 07:59 07:31 07:31 WBC RBC Hgb Hct MCV MCH MCHC RDW Std Deviation RDW Coeff of Marcelino Plt Count MPV Sodium Potassium Chloride Carbon Dioxide Anion Gap BUN Creatinine Est Cr Clr Drug Dosing Est GFR ( Amer) Est GFR (Non-Af Amer) BUN/Creatinine Ratio Glucose Calcium Magnesium Iron TIBC Unsaturated IBC Transferrin % Sat Ferritin Total Creatine Kinase Cancelled 102 TSH Random Vancomycin 27.0 H* Diagnostic Findings Foot X-Ray 06/05/22 17:11 XR foot RT min 3V routine CLINICAL HISTORY: stump pain TECHNIQUE: 3 views of the right foot were obtained. Comparison: Comparison is made to right ankle radiographs 10/12/2021 FINDINGS: Patient is status post right midfoot amputation. Lucencies are seen within the residual talus, nonspecific. IMPRESSION: Status post application with lucencies in the bones of the foot which are nonspecific, may represent demineralization however osteomyelitis cannot be entirely excluded. If there is clinical concern, MRI can be performed. ACT 112: Negative or not required by law. Electronically signed by: Deni Blum M.D. 06/05/2022 5:42 PM Ankle MRI 06/05/22 18:42 MR ankle RT wo con HISTORY: concern for R foot amputation site osteomyelitis. TECHNIQUE: Multiplanar multisequence MRI of the right ankle was performed without intravenous contrast according to standard departmental protocol. COMPARISON STUDY: Right foot radiograph 06/05/2022. FINDINGS: The patient is status post midfoot amputation. Heterogeneous marrow signal seen throughout the distal tibia, distal fibula, calcaneus, and residual talus consistent with bone infarcts. There is abnormal marrow signal with erosive changes involving the residual anterior talus which is highly suspicious for an osteomyelitis. This is best seen on coronal images 9 and measures approximately 2.6 cm. There is diffuse soft tissue edema within the ankle/hindfoot. No loculated fluid collections to suggest an abscess. Small effusions at the tibiotalar and subtalar joints. There is a multiloculated fluid surrounding the flexor hallucis longus tendon. IMPRESSION: 1. Status post midfoot amputation. 2. Abnormal marrow signal and erosive/destructive change at the anterior talus consistent with a site of osteomyelitis. 3. Multiloculated fluid surrounding the flexor hallucis longus tendon. This could be due to a chronic tenosynovitis. Secondary infection would be impossible to exclude by imaging. ACT 112: Negative or not required by law. Electronically signed by: Harish Espino M.D. 06/06/2022 7:33 AM Medications Administered Current Medications Acetaminophen (Acetaminophen 500 Mg Tab) 1,000 mg PO Q8H PRN PRN Reason: pain or fever Stop: 07/06/22 15:19 Last Admin: 06/07/22 13:40 Dose: 1,000 mg Amlodipine Besylate (Amlodipine Besylate 5 Mg Tab) 5 mg PO HS [facility] Stop: 07/05/22 20:59 Last Admin: 06/06/22 20:52 Dose: 5 mg Cyanocobalamin (Cyanocobalamin 1000 Mcg/Ml Vial) 1,000 mcg IM QAM [facility] Stop: 07/06/22 15:59 Last Admin: 06/07/22 09:02 Dose: 1,000 mcg Folic Acid (Folic Acid 400 Mcg Tab) 400 mcg PO QAM [facility] Stop: 07/07/22 08:59 Last Admin: 06/07/22 09:03 Dose: 400 mcg Hydromorphone HCl (Hydromorphone Inj 1 Mg/Ml Syringe) 1 mg IV Q2H PRN PRN Reason: Severe Pain (Scale 7, 8, 9,10) Stop: 06/20/22 17:28 Last Admin: 06/07/22 11:40 Dose: 1 mg Hydromorphone HCl (Hydromorphone Inj 0.5 Mg/0.5 Ml Syr) 0.5 mg IV Q2H PRN PRN Reason: moderate pain (4,5,6) Stop: 06/20/22 17:28 Cefepime HCl 1,000 mg/ Syringe 10 mls @ 5 mls/min IV Q24H [facility]; Protocol Stop: 06/12/22 21:59 Last Admin: 06/06/22 20:52 Dose: 5 mls/min Famotidine 20 mg/ Syringe 5 mls @ 2.5 mls/min IV DAILY [facility] Stop: 07/05/22 19:44 Last Admin: 06/07/22 09:17 Dose: 2.5 mls/min Lactulose (Lactulose Syrup 20 Gm/30 Ml Udc) 20 gm PO BID [facility] Stop: 07/06/22 20:59 Last Admin: 06/07/22 08:07 Dose: Not Given Lisinopril (Lisinopril 5 Mg Tab) 5 mg PO DAILY [facility] Stop: 07/06/22 08:59 Last Admin: 06/06/22 07:35 Dose: 5 mg Lorazepam (Lorazepam 2 Mg/1 Ml Vial) 0.5 mg IV Q8H PRN PRN Reason: Anxiety/Agitation Stop: 07/06/22 17:27 Miscellaneous Information (Vancomycin Consult Active) 1 each N/A UD PRN PRN Reason: Consult Stop: 07/05/22 18:04 Morphine Sulfate (Morphine Sulfate Cr 15 Mg Tabcr) 30 mg PO Q12H PAUL[facility] Stop: 06/19/22 21:44 Last Admin: 06/07/22 09:16 Dose: 30 mg Tamsulosin HCl (Tamsulosin Hcl 0.4 Mg Cap) 0.4 mg PO BID [facility] Stop: 07/05/22 20:59 Last Admin: 06/07/22 08:04 Dose: 0.4 mg Thiamine HCl (Thiamine Hcl 100 Mg Tab) 100 mg PO BID [facility] Stop: 07/07/22 20:59 Zolpidem Tartrate (Zolpidem Tartrate 10 Mg Tab) 10 mg PO HS [facility] Stop: 07/05/22 20:59 Last Admin: 06/06/22 20:50 Dose: 10 mg (1) Osteomyelitis Laterality: right Osteomyelitis location: foot Osteomyelitis type: unspecified type Qualified Code(s): M86.9 - Osteomyelitis, unspecified
--- NOTE | 2022-06-07 15:27 | Nephrology Progress Note ---
Date of Service June 07, 2022 Assessment & Plan (1) ESRD (end stage renal disease) on dialysis: Plan: Orders for 2 hour treatment of HD entered into the EHR and reviewed with nurse. Sesar would not agree to a longer treatment. Low potassium bath. Medications are otherwise appropriately dosed for kidney function. Vanco level elevated. Repeat dosing held per ID. (2) Hyperkalemia: Plan: HD today for clearance. Continue low potassium bath. Low potassium diet. (3) Infection of amputation site of lower extremity: Plan: Empiric treatment with vancomycin and cefepime provided on admission. Additional therapy held pending cultures. Scheduled for surgery tomorrow with Dr. Goodwin for tenosynovectomy and open excision of osteomyelitis with evacuation of abscess. Admission and Anticipated Discharge Date Admission Date: June 05, 2022 Subjective Notably increased pain in foot this morning. Sesar was seen prior to dialysis. He was very upset and emotional. He felt like nothing was being done to help his condition. He stated that he was suffering with pain all night and no one did anything to help. He has been receiving pain medications regularly. He told me that he did not see Dr. Goodwin yesterday I spoke to Ly Smiley PA-C this AM and reviewed the plan of care. Sesar was initially refusing dialysis today but after a discussing hyperkalemia and vancomycin management, he agreed to a 2 hour treatment. Review of Systems Review of Systems: All systems reviewed & are unremarkable except as noted in HPI & below Physical Exam Constitutional: well developed and + obese; no acute distress Eyes: + anicteric sclerae; no corneal abnormality ENMT: Mouth: no oral mucosal abnormality and oral mucous membranes not dry Neck: normal visual inspection, trachea midline and + thick neck Respiratory: normal respiratory effort Cardiovascular: Rate/Rhythm: regular rate Extremities: no edema Musculoskeletal: Extremities: no cyanosis and no clubbing Skin: normal turgor; no lesions Neurologic: Motor/Sensory: no tremor and no asterixis Psychiatric: Orientation: alert and oriented x 3 Results & Data ([facility]) Vital Signs (Past 12 Hours) Vital Signs Temp Pulse Pulse Pulse Resp BP BP 06/07/22 14:22 38.0 C H 106 H 16 139/94 06/07/22 13:37 37.8 C H 106 H 18 129/94 06/07/22 12:49 37.0 C 101 H 18 144/99 H 02/23/23 12:00 37.8 C H 06/07/22 11:30 105 H 125/103 H 06/07/22 11:00 103 H 133/92 06/07/22 12:10 37.8 C H 97 H 121/89 06/07/22 10:30 97 H 142/91 H 06/07/22 10:15 94 H 128/87 06/07/22 10:06 92 H 117/79 06/07/22 09:56 37.7 C H 92 H 06/07/22 07:39 37.3 C 97 H 18 143/91 H Pulse Ox O2 Del Method 06/07/22 14:22 94 Room Air 06/07/22 13:37 97 Room Air 06/07/22 12:49 95 Room Air 06/07/22 12:00 06/07/22 11:30 06/07/22 11:00 06/07/22 12:10 06/07/22 10:30 06/07/22 10:15 06/07/22 10:06 06/07/22 09:56 06/07/22 07:39 94 Room Air PG Care Time/CCT Total # of Minutes Spent Total Time Spent with Patient: Total time spent is greater than 50% in coordination of care (as documented) at patient's floor/unit and/or counseling patient: Coding Level of Care Code 49815 SUB INP/OBS CARE 3/50MIN Diagnoses ESRD (end stage renal disease) on dialysis N18.6; Z99.2 Hyperkalemia E87.5 Infection of amputation site of lower extremity T87.40
[2022-06-07] MEDS ORDERED: hydrALAZINE HCL 20 MG/ML VIAL IV PRN (16:09)
--- NOTE | 2022-06-07 17:18 | CT Scan Report ---
CT SCAN OF THE BRAIN WITHOUT IV CONTRAST CLINICAL HISTORY: Intermittent confusion. Change in mental status. COMPARISON STUDY: No priors. TECHNIQUE: Unenhanced axial CT scan of the brain is performed from the vertex to the skull base. A do se lowering technique was utilized adhering to the principles of ALARA. CT DOSE: 638.56 mGycm FINDINGS: Brain parenchyma: There is age-related involutional change noting minimal microangiopathic disease. T here is no hemorrhage, mass effect, or evidence of acute territorial ischemia by CT criteria. Montalvo-wh ite matter differentiation is preserved. No extra-axial fluid collection is seen. Ventricles, sulci, cisterns: Prominent secondary to involutional change. Intracranial vasculature: There is atherosclerotic calcification of the cavernous carotid and vertebr al arteries. Calvarium: Unremarkable. Sinuses and mastoids: The visualized paranasal sinuses are clear. The mastoid air cells are well pneu matized. Orbits: The bony orbits are grossly intact. IMPRESSION: There is no hemorrhage, mass effect, or evidence of acute territorial ischemia by CT bryan langston. ACT 112: Negative or not required by law. Electronically signed by: Roddy Oscar M.D. 06/07/2022 5:16 PM
[2022-06-07] MEDS: HYDROmorphone INJ 0.5 MG/0.5 ML SYR IV PRN (19:44)
[2022-06-07] MEDS: ZOLPIDEM TARTRATE 10 MG TAB PO SCH (20:24)
[2022-06-07] MEDS: amLODIPine BESYLATE 5 MG TAB PO SCH (20:24)
[2022-06-07] MEDS: THIAMINE HCL 100 MG TAB PO SCH (20:25)
--- NOTE | 2022-06-07 20:44 | XRay Report ---
XR chest 1V portable CLINICAL HISTORY: pre-op COMPARISON STUDY: Chest CT September 25, 2018. FINDINGS: Lung volumes are noted. A calcified granuloma within the left upper lobe is present. There is no pneumothorax or pleural effusion. Mild cardiomegaly is noted. Mediastinal contours are stable. There is pulmonary vascular congestion without overt pulmonary edema. No consolidation is present. IMPRESSION: Mild cardiomegaly. Pulmonary vascular congestion without overt pulmonary edema. ACT 112: Negative or not required by law. Electronically signed by: Ajay Montiel M.D. 06/07/2022 8:42 PM
[2022-06-08] MEDS: HYDROmorphone INJ 1 MG/ML SYRINGE IV PRN (05:44)
[2022-06-08] MEDS: FOLIC ACID 400 MCG TAB PO SCH (07:26)
[2022-06-08] MEDS: LACTULOSE SYRUP 20 GM/30 ML UDC PO SCH ×2 (07:26→20:34)
[2022-06-08] MEDS: TAMSULOSIN HCL 0.4 MG CAP PO SCH ×2 (07:26→20:33)
[2022-06-08] MEDS: THIAMINE HCL 100 MG TAB PO SCH ×2 (07:27→20:33)
[2022-06-08] MEDS: CYANOCOBALAMIN 1000 MCG/ML VIAL IM SCH (07:28)
[2022-06-08] MEDS: MoRPHine SULFATE CR 15 MG TABCR PO SCH ×2 (07:38→20:45)
[2022-06-08] MEDS: HYDROmorphone INJ 0.5 MG/0.5 ML SYR IV PRN ×2 (07:46→19:20)
[2022-06-08 08:01] LABS: Hematocrit (blood only) 35.1 % (42.0-52.0); Hemoglobin 11.2 g/dl (14.0-18.0); Mean Corpuscular Hemoglobin 31.5 pg (25.0-34.0); Mean Corpuscular Hgb Conc 31.9 g/dL (32.0-36.0); Mean Corpuscular Volume 98.9 fL (80.0-100.0); Mean Platelet Volume 10.5 fL (9.4-12.4); Platelet Count 117 K/uL (130-400); RDW Coefficient of Variation 14.6 % (11.5-14.5); RDW Standard Deviation 53.1 fL (36.4-46.3); Red Blood Count 3.55 M/uL (4.70-6.10); White Blood Count 8.38 K/ul (4.8-10.8)
--- NOTE | 2022-06-08 08:17 | Anesthesiology Consultation ---
Date of Service June 08, 2022 Assessment & Plan Chart Review Chart Review: Acceptable Risk for Surgery and Patient NOT seen in Pre Admission Testing Consults Requested none ASA ASA4 Proposed Anesthesia Anesthesia Type: [facility] Laterality: Right Site: Popliteal History Surgery Operation Date: 06/08/22 09:05 Proposed Procedures p Right Foot Incision Osteomyelitis Talus, Tenosynoectomy Flexor Hallucis Longus Tendon - Neo Goodwin DO s Debridement 3cm Foot Ulcer, Possible Evacuation Abscess - Neo Goodwin DO Height/Weight Height: 6 ft Weight: 85.2 kg Allergies Allergy/AdvReac Type Severity Reaction Status Date / Time oxycodone Allergy Severe Swelling Verified 06/05/22 17:10 of throat and itchiness finasteride Allergy Intermediate Hives Verified 06/05/22 17:10 hydrocodone Allergy Intermediate Rash Verified 06/05/22 17:10 Penicillins Allergy Intermediate RASH, Verified 06/05/22 17:10 HIVES, ITCHING Medications Home Medications Medication Instructions Recorded Confirmed Last Taken acetaminophen 500 mg tablet 1,000 mg PO TID PRN Pain 08/12/18 06/05/22 Unknown (Tylenol Extra Strength) lactulose 10 gram/15 mL oral 30 ml PO BID PRN Constipation #946 08/10/20 06/05/22 Unknown solution mL Prosthetic supplies #1 ea 12/01/20 03/19/22 Unknown RT silicone partial foot prostehsis #1 ea 07/01/21 03/19/22 Unknown R hand prosthesis #1 ea 10/10/21 03/19/22 Unknown amlodipine 5 mg tablet 5 mg PO HS #90 tabs 02/06/22 06/05/22 06/04/22 tamsulosin 0.4 mg capsule 0.4 mg PO BID #180 caps 02/15/22 06/05/22 06/05/22 08:00 ondansetron HCl 4 mg tablet 4 mg PO Q8H PRN nausea and 03/19/22 06/05/22 Unknown vomiting #40 tabs lisinopril 5 mg tablet 5 mg PO DAILY #90 tabs 05/09/22 06/05/22 06/05/22 prednisone 5 mg tablet 5 mg PO BID #180 tabs 05/09/22 06/05/22 06/05/22 08:00 morphine 30 mg tablet,extended 30 mg PO Q12H #60 tabs 05/31/22 06/05/22 06/05/22 08:00 release (MS Contin) clobetasol 0.05 % topical cream 1 applic topical BID PRN AFFECTED 06/05/22 06/05/22 Unknown AREA NEEDED zolpidem 10 mg tablet 10 mg PO HS 06/05/22 06/05/22 06/04/22 Active Medications Generic Name Dose Route Start Last Admin Trade Name Freq PRN Reason Stop Dose Admin Acetaminophen 1,000 mg 06/06/22 15:20 06/07/22 13:40 Acetaminophen 500 Mg Tab PO 07/06/22 15:19 1,000 mg Q8H PRN Administration pain or fever Amlodipine Besylate 5 mg 06/05/22 21:00 06/07/22 20:24 Amlodipine Besylate 5 Mg Tab PO 07/05/22 20:59 5 mg HS PAULA Administration Cyanocobalamin 1,000 mcg 06/06/22 16:00 06/08/22 07:28 Cyanocobalamin 1000 Mcg/Ml Vial IM 07/06/22 15:59 1,000 mcg QAM PAULA Administration Folic Acid 400 mcg 06/07/22 09:00 06/08/22 07:26 Folic Acid 400 Mcg Tab PO 07/07/22 08:59 400 mcg QAM PAULA Administration Hydromorphone HCl 1 mg 06/07/22 09:26 06/08/22 05:44 Hydromorphone Inj 1 Mg/Ml Syringe IV 06/20/22 17:28 1 mg Q2H PRN Administration Severe Pain (Scale 7, 8, 9,10) Hydromorphone HCl 0.5 mg 06/07/22 09:26 06/08/22 07:46 Hydromorphone Inj 0.5 Mg/0.5 Ml Syr IV 06/20/22 17:28 0.5 mg Q2H PRN Administration moderate pain (4,5,6) Cefepime HCl 1,000 mg/ Syringe 10 mls @ 5 mls/min 06/05/22 22:00 06/06/22 20:52 IV 06/12/22 21:59 5 mls/min Q24H PAULA Administration Protocol Famotidine 20 mg/ Syringe 5 mls @ 2.5 mls/min 06/05/22 19:45 06/07/22 09:17 IV 07/05/22 19:44 2.5 mls/min DAILY PAULA Administration Lactulose 20 gm 06/06/22 21:00 06/08/22 07:26 Lactulose Syrup 20 Gm/30 Ml Udc PO 07/06/22 20:59 Not Given BID PAULA Lisinopril 5 mg 06/06/22 09:00 06/06/22 07:35 Lisinopril 5 Mg Tab PO 07/06/22 08:59 5 mg DAILY PAULA Administration Morphine Sulfate 30 mg 06/05/22 21:45 06/08/22 07:38 Morphine Sulfate Cr 15 Mg Tabcr PO 06/19/22 21:44 30 mg Q12H PAULA Administration Tamsulosin HCl 0.4 mg 06/05/22 21:00 06/08/22 07:26 Tamsulosin Hcl 0.4 Mg Cap PO 07/05/22 20:59 0.4 mg BID PAULA Administration Thiamine HCl 100 mg 06/07/22 21:00 06/08/22 07:27 Thiamine Hcl 100 Mg Tab PO 07/07/22 20:59 100 mg BID PAULA Administration Zolpidem Tartrate 10 mg 06/05/22 21:00 06/07/22 20:24 Zolpidem Tartrate 10 Mg Tab PO 07/05/22 20:59 10 mg HS PAULA Administration NPO Date Last Intake of Fluids: 06/08/22 Time Last Intake of Fluids: 00:01 Date Last Intake of Solids: 06/07/22 Time Last Intake of Solids: 18:00 Past Medical History Medical History Atrial fibrillation AV fistula LEFT ARM Avascular necrosis of bones of both hips Chronic pain Diabetes mellitus MONITORING, NO MEDICINE TO TREAT. Diverticulosis Dyslipidemia ESRD (end stage renal disease) on dialysis FSGS (focal segmental glomerulosclerosis) Gangrene of toe of right foot History of renal cell cancer Hypertension Ischemic ulcer of toe of right foot Peripheral arterial disease Scrotal swelling Urinary incontinence Exercise / Class Metabolic Activity III < 4 Walking/Shop/Light housework Past Family History Family History Brother Liver cirrhosis secondary to ALBA Family history of diabetes mellitus Father Brain tumor Coronary heart disease Hypertension Family history of diabetes mellitus Myocardial infarction Mother Liver cancer Hypertension Family history of diabetes mellitus Breast cancer Grandmother (Maternal) Stroke Sister Family history of diabetes mellitus Ovarian cancer x2 Grandfather (Maternal) Family hx of colon cancer Colorectal cancer Prostate cancer Grandfather (Paternal) Prostate cancer Past Surgical History Surgical History 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 GETA. Grade 1 view. Escobar 2. 8.0 ETT. No issues. 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) 2nd toe, d/t embolism Status post insertion of hemodialysis catheter +MULTIPLE REVISIONS Past Anesthesia History No Hx of Anesthesia Complications and No Family Hx of Anesthesia Complications History of PONV No Hx of PONV and No Hx of Motion Sickness Social History Smoking Status: Never smoker tobacco type: smokeless tobacco Do You Dip or Chew Tobacco: Yes Hx Alcohol Use: No Hx Substance Use: No substance use type: does not use Physical Exam Vital Signs Last Vital Signs Temp 36.7 C 06/08/22 07:44 Pulse 88 06/08/22 07:44 Resp 20 06/08/22 07:44 BP 122/85 06/08/22 07:44 Pulse Ox 94 06/08/22 07:44 O2 Del Method Room Air 06/08/22 07:44 Testing Laboratory Results 06/08/22 07:27 PT 10.3 Seconds (9.0-12.0) 06/06/22 07:31 INR 1.0 (0.9-1.1) 06/06/22 07:31 Urine Color Yellow 06/05/22 21:49 Urine Appearance Clear (Clear) 06/05/22 21:49 Urine pH >= 9.0 (4.5-7.5) H 06/05/22 21:49 Ur Specific Rogers 1.011 (1.000-1.030) 06/05/22 21:49 Urine Protein 2+ (Negative) H 06/05/22 21:49 Urine Glucose (UA) Trace (Negative) H 06/05/22 21:49 Urine Ketones Negative (Negative) 06/05/22 21:49 Urine Nitrite Negative (Negative) 06/05/22 21:49 Ur Leukocyte Esterase Negative (Negative) 06/05/22 21:49 Urine WBC (Auto) 1-5 /hpf (0-5) 06/05/22 21:49 Urine RBC (Auto) 0-4 /hpf (0-4) 06/05/22 21:49 U Hyaline Cast (Auto) 1-5 /lpf (0-5) 06/05/22 21:49 U Epithel Cells (Auto) 5-10 /lpf (0-5) H 06/05/22 21:49 Urine Bacteria (Auto) Negative (Negative) 06/05/22 21:49 06/05/22 18:45 Aerobic Blood Culture - Preliminary Blood No growth in Aerobic bottle after 48 hours. Anaerobic Blood Culture - Final 06/05/22 18:45 Aerobic Blood Culture - Preliminary Blood No growth in Aerobic bottle after 48 hours. Anaerobic Blood Culture - Final Electrocardiogram Date: 06/06/22 Findings: + NSR @ (@ 65 w/ premature SVC's) Chest X-Ray Date: 06/07/22 Findings: + cardiomegaly and + pulmonary vascular congestion (w/o overt pulmonary edema) Echocardiogram Date: 11/23/19 EF: 40% LV Function: dysfunctional RWMA: + hypokinetic Other Findings: + LVH and + diastolic dysfunction (Grade 1) Valvular Disease: + MR (mild)
[2022-06-08 08:20] LABS: BUN Creatinine Ratio 6.4 (10-20); Creatinine Clr Calc Pharmacy 11.3 ml/min; Est GFR (Non-African American) 6.9 ml/min; Magnesium 2.1 mg/dl (1.7-2.4)
--- NOTE | 2022-06-08 08:21 | Hospitalist Progress Note ---
Date of Service June 08, 2022 Assessment & Plan (1) Infection of amputation site of lower extremity: Plan: Recently on cefdinir x 3 weeks, stopped outpatient as told looked good by wound care Presented w/ continued drainage/worsening pain to RLE amputation site, prior seen by Dr Goodwin Xray Status post application with lucencies in the bones of the foot which are nonspecific, may represent demineralization however osteomyelitis cannot be entirely excluded. If there is clinical concern, MRI can be performed. MRI obtained to eval for underlying AOM --> Abnormal marrow signal and erosive/destructive change at the anterior talus consistent with a site of osteomyelitis. Multiloculated fluid surrounding the flexor hallucis longus tendon. This could be due to a chronic tenosynovitis. Secondary infection would be impossible to exclude by imaging. Orthopedics consulted Initially on Vanco/Cefepime -- vanco trough elevated (weight incorrect in system, was 114kg when actually ~85kg). Hx MRSA in ankle cx in past --Held further abx for OR/cx, repeat vanco trough still within limits and therapeutic prior to surgery WBC 11.6k -> 8.3k Blood cultures NGTD x [address] order for PICC line given detention IV abx s/p OR this morning 06/[address] Goodwin. EBL 200cc Post-Op Diagnosis: * 1. Right foot osteomyelitis of the distal talus. * 2. Tenosynovitis of flexor hallucis longus tendon with degradation/tearing of the distal tendon * 3. A 3-cm diameter by 0.4 cm depth ulceration, right distal residual foot. * 4. 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 * 5. Abscess dorsal and medial foot * 6. Osteomyelitis right calcaneus CX from OR pending -- monitor ID consulted and following Nephrology consulted given ESRD/hyperkalemia -- did get 2h 2L tx on 06/07, appreciate continued following/assistance Pain control -- hypersensitive prior evenings, remains on MS contin BID --Dilaudid available 0.5-1mg Q2H. Discussed w/ patient and can increase to Q1H if needed but hopefully now that both abscess have been addressed hopefully pain will be much better controlled Monitor labs in AM (2) ESRD (end stage renal disease) on dialysis: Plan: Currently gets HD once weekly on Tuesdays, had a full session today prior to coming to the ED (misses frequently) Nephrology on consult Patiromer provided 06/06 for K 6 HD on 06/08 for 2L K 5.0 on am labs and remains on Low K/renal diet Nephrology following for possible need for further HD given medications (3) Atrial fibrillation: Plan: Stable , examines in SR -- SR w/ PVCs on EKG Has not been on Eliquis since September of 2021, unsure of the exact reason at this time but it appears that it may have been due to bleeding and bruising issues -- rec'd f/u PCP regarding this and likely should be on such to prevent stroke risk/clots I messaged PCP given prior notes indicate taking still 5mg BID however patient states he is NOT on this medication and did discuss w/ patient 06/08 to have further discussions w/ vascular and PCP outpatient to see if still needing Monitor K/mag Tx anemia w/ B12/folate supplementation and patient to get venofer outpt w/ dialysis (if he goes, per discussion with Dr Barreto) Check CT head given confusion overnight 06/06 but suspect related to opiate/pain medications. CT head negative. Mentation at baseline today (4) Anemia: Plan: hgb appears in 10-12 range, 11 on admit with ?lab error of 9.9 yesterday given 11 on AM labs B12/folate low as above, replacement ordered iron panel 22, TIBC low/unsat low, trans % sat only 15 but ferritin elevation 1063 likely reactive given current infection outpt f/u for replacement w/ HD labs reviewed, Hgb 11.2 and stable monitor CBC given EBL 200cc w/ OR today (5) Chronic pain: Plan: Continue home MS contin Morphine not as effective, switched to Dilaudid -- DECREASED frequency to Q2H for pain control 0.5-1mg as needed and can decrease further to q1h if needed however hopefully pain improving after OR ?consideration for gabapentin for neuropathy type pain as it does appear he was on this medication in past w/ vascular (6) Chronic constipation: Plan: Continue prn lactulose -- changed to BID, patient refusing this and stated moved his bowels yesterday. Does have +BS on exam but is distended monitor BMs, encourage use of lactulose if not moving them tomorrow could also consider giving dose of Relistor for opiate induced constipation but reports BM x 2 on 06/07 -- monitor (7) BPH loc w urin obs/LUTS: Plan: Continue flomax (8) Psoriatic arthritis: Plan: Normally on prednisone 5mg PO BID Hold PO pred for now with current infection , NOT HAVING ANY HYPOTENSION (exception directly post op) -- will touch base w/ supervising provider about any need for stress dose steroids post-operatively given BP 99/67 ORDERED 1x dose hydrocortisone 50mg x1 NOW, resume 5mg prednisone for AM (9) Hypertension: Plan: Stable Continue amlodipine -Patient is also on Lisinopril as prescribed by Nephrology -- held for AM given K/Cr Borderline post op at 99/67 -- monitor for need for stress dose steroids, continue to hold lisinopril (10) B12 deficiency: Plan: checked due to anemia/borderline MCV --> B12 LOW at 142 -- IM replacement while inpatient and would continue PO at d/c (11) Folate deficiency: Plan: checked due to anemia/borderline MCV --> Folate LOW 4.39, PO replacement ordered and would continue at discharge Plan continued inpatient stay monitor cx from OR ID following -- appreciate assistance Wound RN consulted for AM -- of note he does follow with [facility] and Anticipated Discharge Date Admission Date: June 07, 2022 Supervising Physician Co-Signing Physician Notes The patient was not seen by me. The chart was reviewed. Case discussed with EVENS Velasquez. He underwent surgical debridement of the right ankle area today by orthopedics. Agree with assessment and plan Subjective Patient evaluated after surgery around 2pm. Nerve block in place and currently not having any pain. +BM yesterday AM and evening. Nothing today. No fever/chills (did have temp during dialysis yesterday). 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 Tray at bedside, but not much of an appetite at present. No nausea/vomiting. Discussed hoping to salvage and will monitor cultures but they may take a day or two to finalize but once finalized will be able to set up the IV antibiotics for at home. ID following along. Physical Exam Physical Exam: General: chronically ill appearing male sitting up in bed post-operatively, NAD, sleeping initially upon entry, easily awoken HEENT: head normocephalic, atraumatic, mmm, trachea midline Resp: CTAB, diminished in the bases without significant w/r, on room air CV: RRR, +systolic murmur, no significant edema, pulses palpable GI: +BS, LESS distended, NT : no kaiser MSK/Neuro: RLE with dressing in place, no shadowing, no lymphangitic streaking R hand w/ prior amputations to several digits prior s/p BKA on left well formed/no signs of infection Psych: AOx3, cooperative with care Results & Data Results & Data ([facility]) Vital Signs (Past 12 Hours) Vital Signs Temp Pulse Pulse Resp BP Pulse Ox Pulse Ox 06/08/22 07:44 36.7 C 88 20 122/85 94 06/08/22 00:00 37 C 74 16 154/78 H 94 06/07/22 21:00 95 06/07/22 22:18 06/07/22 20:27 37 C 92 H 92 H 16 113/74 95 O2 Del Method O2 Del Method 06/08/22 07:44 Room Air 06/08/22 00:00 Room Air 06/07/22 21:00 Room Air 06/07/22 22:18 Room Air 06/07/22 20:27 Room Air Laboratory Results 06/08/22 06/08/22 06/08/22 Range/Units 12:21 08:28 07:27 WBC (4.8-10.8) K/ul RBC (4.70-6.10) M/uL Hgb (14.0-18.0) g/dl Hct (42.0-52.0) % MCV (80.0-100.0) fL MCH (25.0-34.0) pg MCHC (32.0-36.0) g/dL RDW Std Deviation (36.4-46.3) fL RDW Coeff of Marcelino (11.5-14.5) % Plt Count (130-400) K/uL MPV (9.4-12.4) fL Sodium 140 (136-145) mmol/L Potassium 5.0 (3.5-5.1) mmol/L Chloride 106 (98-107) mmol/L Carbon Dioxide 22 (21-32) mmol/L Anion Gap 12 H (3-11) BUN 50 H (6-23) mg/dl Creatinine 7.80 H* D (0.6-1.4) mg/dl Est Cr Clr Drug Dosing 11.3 ml/min Est GFR ( Amer) 8.0 ml/min Est GFR (Non-Af Amer) 6.9 ml/min BUN/Creatinine Ratio 6.4 L (10-20) Glucose 83 (70-99(Fasting)) mg/dl POC Glucose 142 H 77 (70-99) mg/dl Calcium 8.0 L (8.5-10.1) mg/dl Magnesium 2.1 (1.7-2.4) mg/dl Random Vancomycin (10-20) mcg/ml 06/08/22 06/08/22 Range/Units 07:27 07:27 WBC 8.38 (4.8-10.8) K/ul RBC 3.55 L (4.70-6.10) M/uL Hgb 11.2 L (14.0-18.0) g/dl Hct 35.1 L (42.0-52.0) % MCV 98.9 (80.0-100.0) fL MCH 31.5 (25.0-34.0) pg MCHC 31.9 L (32.0-36.0) g/dL RDW Std Deviation 53.1 H (36.4-46.3) fL RDW Coeff of Marcelino 14.6 H (11.5-14.5) % Plt Count 117 L (130-400) K/uL MPV 10.5 (9.4-12.4) fL Sodium (136-145) mmol/L Potassium (3.5-5.1) mmol/L Chloride (98-107) mmol/L Carbon Dioxide (21-32) mmol/L Anion Gap (3-11) BUN (6-23) mg/dl Creatinine (0.6-1.4) mg/dl Est Cr Clr Drug Dosing ml/min Est GFR ( Amer) ml/min Est GFR (Non-Af Amer) ml/min BUN/Creatinine Ratio (10-20) Glucose (70-99(Fasting)) mg/dl POC Glucose (70-99) mg/dl Calcium (8.5-10.1) mg/dl Magnesium (1.7-2.4) mg/dl Random Vancomycin 20.8 H (10-20) mcg/ml Diagnostic Findings Head CT 06/07/22 16:03 CT SCAN OF THE BRAIN WITHOUT IV CONTRAST CLINICAL HISTORY: Intermittent confusion. Change in mental status. COMPARISON STUDY: No priors. TECHNIQUE: Unenhanced axial CT scan of the brain is performed from the vertex to the skull base. A dose lowering technique was utilized adhering to the principles of ALARA. CT DOSE: 638.56 mGycm FINDINGS: Brain parenchyma: There is age-related involutional change noting minimal microangiopathic disease. There is no hemorrhage, mass effect, or evidence of acute territorial ischemia by CT criteria. Montalvo-white matter differentiation is preserved. No extra-axial fluid collection is seen. Ventricles, sulci, cisterns: Prominent secondary to involutional change. Intracranial vasculature: There is atherosclerotic calcification of the cavernous carotid and vertebral arteries. Calvarium: Unremarkable. Sinuses and mastoids: The visualized paranasal sinuses are clear. The mastoid air cells are well pneumatized. Orbits: The bony orbits are grossly intact. IMPRESSION: There is no hemorrhage, mass effect, or evidence of acute territorial ischemia by CT criteria. ACT 112: Negative or not required by law. Electronically signed by: Roddy Oscar M.D. 06/07/2022 5:16 PM Chest X-Ray 06/07/22 16:11 XR chest 1V portable CLINICAL HISTORY: pre-op COMPARISON STUDY: Chest CT September 25, 2018. FINDINGS: Lung volumes are noted. A calcified granuloma within the left upper l obe is present. There is no pneumothorax or pleural effusion. Mild cardiomegaly is noted. Mediastinal contours are stable. There is pulmonary vascular congestion without overt pulmonary edema. No consolidation is present. IMPRESSION: Mild cardiomegaly. Pulmonary vascular congestion without overt pulmonary edema. ACT 112: Negative or not required by law. Electronically signed by: Ajay Montiel M.D. 06/07/2022 8:42 PM PG Care Time/CCT Total # of Minutes Spent Total Time Spent with Patient: Total time spent is greater than 50% in coordination of care (as documented) at patient's floor/unit and/or counseling patient: Coding Level of Care Code 75397 SUB INP/OBS CARE 3/50MIN Diagnoses Infection of amputation site of lower extremity T87.40 ESRD (end stage renal disease) on dialysis N18.6; Z99.2 Atrial fibrillation I48.91 Anemia D64.9 Chronic pain G89.29 Chronic constipation K59.09 BPH loc w urin obs/LUTS N40.1 Psoriatic arthritis L40.50 Hypertension I10 B12 deficiency E53.8 Folate deficiency E53.8
--- NOTE | 2022-06-08 09:21 | Pharmacy Report ---
Pharmacy PK ABX Note - Date of Service June 08, 2022 - Assessment and Plan Assessment 56 year old M receiving IV Vancomycin + Cefepime for treatment of osteomyelitis of partial right foot amputation site. PMH significant for renal cell carcinoma S/P left nephrectomy ESRD on he modialysis on Tuesdays & (non-compliant), afib (No longer on anticoagulation), DM, HTN, CAD, ALBA, hyperlipidemia, chronic constipation, S/P previous left BKA and right partial metatarsal amputations, S/P amputation of Right 2-4 digits on 03/18/2020, RA currently on prednisone therapy, and BPH. Pertinent microbiologic data includes: Positive MRSA Nasal Swab BC cultures No Growth Day # 4 of antimicrobial therapy. UO yesterday = 1375ml Patient scheduled for surgical debridement of osteomyelitis tomorrow with Dr Mora. Plan Vancomycin * Loading dose: 2750 mg (32mg/kg) IV x 1 given 06/05 @1912 - this was given based on incorrect weight entered in [employer] on admission to ED. * Random level = 20mcg/ml this AM * 2 hrs HD yesterday, continue to hold Vancomycin for level of 20 mcg/ml * Recheck random Vancomycin level tomorrow morning Cefepime 1g IV Q24 H - on hold until OR cultures Pharmacy will continue to follow and will adjust dose/frequency as necessary. Thank you.
--- NOTE | 2022-06-08 09:56 | History & Physical Bridge Note ---
Date of Service June 08, 2022 History & Physical Bridge Note I have examined the patient, reviewed the History & Physical and in the interval since the performance of the History & Physical I have noted the following changes of clinical significance: no changes noted
[2022-06-08] MEDS ORDERED: ETOMIDATE 2 MG/ML 20 ML VIAL IV ONE ×2 (10:00→11:33)
[2022-06-08] MEDS ORDERED: MIDAZOLAM HCL 1 MG/ML 2ML VIAL ONE ×2 (10:00→11:07)
[2022-06-08] MEDS ORDERED: PROPOFOL IV EMULSION 10 MG/ML 20 ML VIAL IV ONE ×2 (10:00→11:33)
[2022-06-08] MEDS ORDERED: fentaNYL citrate PF 100 MCG/2 ML VIAL ONE (10:07)
[2022-06-08] MEDS ORDERED: DEXAMETHASONE SOD INJ 4 MG/ML VIAL ONE (10:41)
[2022-06-08] MEDS ORDERED: EPINEPHrine INJ 1 MG/ML AMP ONE (10:41)
[2022-06-08] MEDS ORDERED: ROPIVACAINE 0.5% 5 MG/ML 30 ML VIAL ONE (10:41)
--- NOTE | 2022-06-08 11:53 | Infectious Disease Progress Nt ---
Date of Service June 08, 2022 Assessment & Plan (1) Osteomyelitis: Plan: ID consult requested for osteomyelitis of right foot in this 56-year-old male, past medical history of atrial fibrillation, diabetes, psoriatic arthritis on prednisone 10mg daily, ESRD, on HD Saturday//Saturday, hypertension, renal cell cancer, status post nephrectomy, peripheral arterial disease, status post left BKA, status post amputation partial right foot 03/18/2020 secondary to dry gangrene, who presented to the ED on 06/05/2022 reporting pain in his right stump along with drainage from right lower extremity amputation site. Patient reported foot was amputated in January 2021. He had been following at wound care clinic for a chronic wound at the site of his partial right foot amputation. He was previously on cefdinir for possible acute infection, but antibiotics were stopped several weeks ago by wound care clinic as they thought infection was adequately treated. Wound had been caused by too much pressure from his prosthesis and wound care clinic had made an adjustment to the prosthesis. He reported chronic drainage from the wound site. He denied any fevers, chills, shortness of breath, or GI complaints. In the ED, temperature was 36.9, heart rate 83, blood pressure 182/83, respiratory rate 18, O2 saturation 96% on room air. Admission labs significant for WBC 11.67, 88.2% neutrophils, 3.9% immature granulocytes. Right foot x-ray could not exclude osteomyelitis. #R foot osteomyelitis -MRI showed abnormal marrow signal and erosive/destructive change of the anterior talus consistent with site of osteomyelitis and multiloculated fluid surrounding the flexor hallucis longus tendon which could be due to chronic tenosynovitis but secondary infection was not possible to exclude -Patient was started on cefepime 1 g IV every 24 and vancomycin dosed by pharmacy on 06/05- held 06/07 -06/05 nasal MRSA screen positive. 06/05 blood cultures are no growth to date. -Prior cultures reviewed in EMR.No recent cultures. 10/13/2020 in the ankle wound culture grew MRSA susceptible to tetracycline. -WBC has improved to ~9. -Pt was seen by orthopedic surgery who recommendedopen excision of osteomyelitis of the anterior distal talus and tenosynovectomy, possible evacuation of abscess, right medial hindfoot scheduled for 06/08 -Pt has agreed to stay for surgery after initial refusal #ESRD on HD #reported allergy to PCN Plan Rec: Empiric vancomycin and cefepime held until OR in setting of clinical stability and absence of recent cultures to guide treatment. These antibiotics can be resumed with dosing for HD after OR. Pt would not have been able to be treated with empiric antibiotics for osteo without deep cultures and evaluation for collections that may require drainage. F/u OR findings and OR cultures. Please page with any questions. Dr. Berger to take over service Saturday. Carolyn Castañeda M.D. [facility] IDConnect Pager [phone] Admission and Anticipated Discharge Date Admission Date: June 07, 2022 Subjective This patient recommendation is based on a telemedicine consult request which was completed asynchronously through chart review and information provided by the primary physician. The patient was not seen or examined today. The evaluation is consultative in nature and all patient care and treatment decisions can either be accepted or rejected by the patient's primary hospital-based treating physician using their own independent medical judgment for their patient. Time Spent Reviewing Chart: 11 - 20 minutes Pt in OR this AM. Isolated temp of 38 yesterday afternoon- afebrile since. Bcxs remain NGTD Results & Data ([facility]) Vital Signs (Past 12 Hours) Vital Signs Temp Pulse Resp BP Pulse Ox O2 Del Method 06/08/22 08:33 36.9 C 93 H 20 117/93 93 Room Air 06/08/22 07:44 36.7 C 88 20 122/85 94 Room Air 06/08/22 00:00 37 C 74 16 154/78 H 94 Room Air Laboratory Results 06/05/22 18:45 Aerobic Blood Culture - Preliminary Blood No growth in Aerobic bottle after 48 hours. Anaerobic Blood Culture - Final 06/05/22 18:45 Aerobic Blood Culture - Preliminary Blood No growth in Aerobic bottle after 48 hours. Anaerobic Blood Culture - Final 06/08/22 06/08/22 06/08/22 08:28 07:27 07:27 WBC 8.38 RBC 3.55 L Hgb 11.2 L Hct 35.1 L MCV 98.9 MCH 31.5 MCHC 31.9 L RDW Std Deviation 53.1 H RDW Coeff of Marcelino 14.6 H Plt Count 117 L MPV 10.5 Sodium 140 Potassium 5.0 Chloride 106 Carbon Dioxide 22 Anion Gap 12 H BUN 50 H Creatinine 7.80 H* D Est Cr Clr Drug Dosing 11.3 Est GFR ( Amer) 8.0 Est GFR (Non-Af Amer) 6.9 BUN/Creatinine Ratio 6.4 L Glucose 83 POC Glucose 77 Calcium 8.0 L Magnesium 2.1 Random Vancomycin 06/08/22 07:27 WBC RBC Hgb Hct MCV MCH MCHC RDW Std Deviation RDW Coeff of Marcelino Plt Count MPV Sodium Potassium Chloride Carbon Dioxide Anion Gap BUN Creatinine Est Cr Clr Drug Dosing Est GFR ( Amer) Est GFR (Non-Af Amer) BUN/Creatinine Ratio Glucose POC Glucose Calcium Magnesium Random Vancomycin 20.8 H Diagnostic Findings Head CT 06/07/22 16:03 CT SCAN OF THE BRAIN WITHOUT IV CONTRAST CLINICAL HISTORY: Intermittent confusion. Change in mental status. COMPARISON STUDY: No priors. TECHNIQUE: Unenhanced axial CT scan of the brain is performed from the vertex to the skull base. A dose lowering technique was utilized adhering to the principles of ALARA. CT DOSE: 638.56 mGycm FINDINGS: Brain parenchyma: There is age-related involutional change noting minimal microangiopathic disease. There is no hemorrhage, mass effect, or evidence of acute territorial ischemia by CT criteria. Montalvo-white matter differentiation is preserved. No extra-axial fluid collection is seen. Ventricles, sulci, cisterns: Prominent secondary to involutional change. Intracranial vasculature: There is atherosclerotic calcification of the cavernous carotid and vertebral arteries. Calvarium: Unremarkable. Sinuses and mastoids: The visualized paranasal sinuses are clear. The mastoid air cells are well pneumatized. Orbits: The bony orbits are grossly intact. IMPRESSION: There is no hemorrhage, mass effect, or evidence of acute territorial ischemia by CT criteria. ACT 112: Negative or not required by law. Electronically signed by: Roddy Oscar M.D. 06/07/2022 5:16 PM Chest X-Ray 06/07/22 16:11 XR chest 1V portable CLINICAL HISTORY: pre-op COMPARISON STUDY: Chest CT September 25, 2018. FINDINGS: Lung volumes are noted. A calcified granuloma within the left upper lobe is present. There is no pneumothorax or pleural effusion. Mild cardiomegaly is noted. Mediastinal contours are stable. There is pulmonary vascular congestion without overt pulmonary edema. No consolidation is present. IMPRESSION: Mild cardiomegaly. Pulmonary vascular congestion without overt pulmonary edema. ACT 112: Negative or not required by law. Electronically signed by: Ajay Montiel M.D. 06/07/2022 8:42 PM Medications Administered Current Medications Acetaminophen (Acetaminophen 500 Mg Tab) 1,000 mg PO Q8H PRN PRN Reason: pain or fever Stop: 07/06/22 15:19 Last Admin: 06/07/22 13:40 Dose: 1,000 mg Amlodipine Besylate (Amlodipine Besylate 5 Mg Tab) 5 mg PO HS [facility] Stop: 07/05/22 20:59 Last Admin: 06/07/22 20:24 Dose: 5 mg Cyanocobalamin (Cyanocobalamin 1000 Mcg/Ml Vial) 1,000 mcg IM QAM [facility] Stop: 07/06/22 15:59 Last Admin: 06/08/22 07:28 Dose: 1,000 mcg Folic Acid (Folic Acid 400 Mcg Tab) 400 mcg PO QAM [facility] Stop: 07/07/22 08:59 Last Admin: 06/08/22 07:26 Dose: 400 mcg Hydralazine HCl (Hydralazine Hcl 20 Mg/Ml Vial) 10 mg IV Q8H PRN PRN Reason: hypertension Stop: 07/07/22 16:08 Hydromorphone HCl (Hydromorphone Inj 1 Mg/Ml Syringe) 1 mg IV Q2H PRN PRN Reason: Severe Pain (Scale 7, 8, 9,10) Stop: 06/20/22 17:28 Last Admin: 06/08/22 05:44 Dose: 1 mg Hydromorphone HCl (Hydromorphone Inj 0.5 Mg/0.5 Ml Syr) 0.5 mg IV Q2H PRN PRN Reason: moderate pain (4,5,6) Stop: 06/20/22 17:28 Last Admin: 06/08/22 07:46 Dose: 0.5 mg Cefepime HCl 1,000 mg/ Syringe 10 mls @ 5 mls/min IV Q24H PAULA; Protocol Stop: 06/12/22 21:59 Last Admin: 06/06/22 20:52 Dose: 5 mls/min Famotidine 20 mg/ Syringe 5 mls @ 2.5 mls/min IV DAILY [facility] Stop: 07/05/22 19:44 Last Admin: 06/07/22 09:17 Dose: 2.5 mls/min Lactulose (Lactulose Syrup 20 Gm/30 Ml Udc) 20 gm PO BID [facility] Stop: 07/06/22 20:59 Last Admin: 06/08/22 07:26 Dose: Not Given Lisinopril (Lisinopril 5 Mg Tab) 5 mg PO DAILY [facility] Stop: 07/06/22 08:59 Last Admin: 06/06/22 07:35 Dose: 5 mg Lorazepam (Lorazepam 2 Mg/1 Ml Vial) 0.5 mg IV Q8H PRN PRN Reason: Anxiety/Agitation Stop: 07/06/22 17:27 Miscellaneous Information (Vancomycin Consult Active) 1 each N/A UD PRN PRN Reason: Consult Stop: 07/05/22 18:04 Morphine Sulfate (Morphine Sulfate Cr 15 Mg Tabcr) 30 mg PO Q12H [facility] Stop: 06/19/22 21:44 Last Admin: 06/08/22 07:38 Dose: 30 mg Senna/Docusate Sodium (Docusate Sodium/Senna 50/8.6mg Tab) 1 tab PO QAM [facility] Stop: 07/08/22 08:59 Tamsulosin HCl (Tamsulosin Hcl 0.4 Mg Cap) 0.4 mg PO BID [facility] Stop: 07/05/22 20:59 Last Admin: 06/08/22 07:26 Dose: 0.4 mg Thiamine HCl (Thiamine Hcl 100 Mg Tab) 100 mg PO BID [facility] Stop: 07/07/22 20:59 Last Admin: 06/08/22 07:27 Dose: 100 mg Zolpidem Tartrate (Zolpidem Tartrate 10 Mg Tab) 10 mg PO HS [facility] Stop: 07/05/22 20:59 Last Admin: 06/07/22 20:24 Dose: 10 mg (1) Osteomyelitis Laterality: right Osteomyelitis location: foot Osteomyelitis type: unspecified type Qualified Code(s): M86.9 - Osteomyelitis, unspecified
[2022-06-08] MEDS ORDERED: PHENYLEPHRINE HCL 10 MG/ML VIAL ONE (12:12)
[2022-06-08] MEDS ORDERED: ONDANSETRON INJ 2 MG/ML 2 ML VIAL ONE (12:12)
--- NOTE | 2022-06-08 12:31 | Post Operative Brief Note ---
Immediate Post Op Note v1 Date of Surgery June 08, 2022 Pre & Post Diagnosis Operation Date: 06/08/22 09:05 Pre-Op Diagnosis: 1. Right foot osteomyelitis of the distal talus. 2. Tenosynovitis of flexor hallucis longus tendon with possible abscess. 3. A 3-cm ulceration, right distal residual foot. 4. 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 Post-Op Diagnosis: 1. Right foot osteomyelitis of the distal talus. 2. Tenosynovitis of flexor hallucis longus tendon with degradation/tearing of the distal tendon 3. A 3-cm diameter by 0.4 cm depth ulceration, right distal residual foot. 4. 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 5. Abscess dorsal and medial foot 6. Osteomyelitis right calcaneus I identified the patient and participated in the time-out.: Yes Procedure Operation Date: 06/08/22 09:05 Actual Procedures p Right Foot excision/exostectomy osteomyelitis Talus, Tenosynovectomy Flexor Hallucis Longus Tendon, partial resection flexor hallucis longus tendon, excision/exostectomy osteomyelitis Calcaneus(Right) - Neo Goodwin DO s Debridement 3cm diameter by 0.4 cm depth foot Ulcer, Evacuation Abscess dorsal and medial foot (Right) - Neo Goodwin DO Surgeon Neo Goodwin DO Chief Of Staff None Estimated Blood Loss 200 Findings Consistent with Post-Op Diagnosis Specimens Aerobic, anaerobic, Gram stain abscess right foot Osteomyelitic bone talus Partial resection flexor hallucis longus tendon Drains Other (1/2 inch iodoform gauze drain) Anesthesia Type MAC Regional Complications none Disposition Accompanied Patient To Recovery: No
--- NOTE | 2022-06-08 12:51 | Anesthesiology Progress Note ---
Date of Service June 08, 2022 Anesthesia Post Procedure Vital Signs Vital Signs: Temp Pulse Pulse Pulse Resp BP Pulse Ox 06/08/22 12:45 36.5 C 88 12 104/75 94 06/08/22 12:35 81 12 92/64 L 97 06/08/22 12:25 91 H 25 H 103/69 100 06/08/22 12:16 36.0 C L 93 H 16 83/66 L 97 06/08/22 08:33 36.9 C 93 H 20 117/93 93 06/08/22 07:44 36.7 C 88 20 122/85 94 06/08/22 00:00 37 C 74 16 154/78 H 94 06/07/22 21:00 06/07/22 22:18 06/07/22 20:27 37 C 92 H 92 H 16 113/74 95 06/07/22 17:09 36.9 C 92 H 17 123/81 96 06/07/22 16:03 37.2 C 06/07/22 14:22 38.0 C H 106 H 16 139/94 94 06/07/22 13:37 37.8 C H 106 H 18 129/94 97 Pulse Ox O2 Del Method O2 Del Method O2 Flow Rate 06/08/22 12:45 Room Air 06/08/22 12:35 Room Air 06/08/22 12:25 Oxymask 5 06/08/22 12:16 Oxymask 5 06/08/22 08:33 Room Air 06/08/22 07:44 Room Air 06/08/22 00:00 Room Air 06/07/22 21:00 95 Room Air 06/07/22 22:18 Room Air 06/07/22 20:27 Room Air 06/07/22 17:09 Room Air 06/07/22 16:03 06/07/22 14:22 Room Air 06/07/22 13:37 Room Air Pain Intensity Right Foot: Pain Intensity: 9 Transfer of Care Handoff Completed per policy Notes Mental Status: alert / awake / arousable Patient Amnestic to Procedure: Yes Nausea / Vomiting: adequately controlled Pain: adequately controlled Airway Patency, RR, SpO2: stable & adequate BP & HR: stable & adequate Hydration State: stable & adequate Anesthetic Complications: no major complications apparent
[2022-06-08] MEDS: DOCUSATE SODIUM/SENNA 50/8.6MG TAB PO SCH (13:39)
[2022-06-08] MEDS: FAMOTIDINE 20 MG in SYRINGE 3 ML IV SCH (13:40)
--- NOTE | 2022-06-08 14:06 | XRay Report ---
RIGHT FOOT 3 VIEWS CLINICAL HISTORY: Postoperative examination. FINDINGS: 3 views of the right foot are compared to study dated 06/05/2022 and correlated with MRI of the ankle dated 06/05/2022. The skeletal structures are heterogeneously osteopenic. No acute fracture is seen. There is postsurgical change from amputation of the forefoot and midfoot. There has been fur ther amputation of the anterior talus as compared to previous with surrounding soft tissue calcificat ions. The anterior talus is heterogeneous. No erosive change is clearly seen. There is a large planta r heel spur. Degenerative change is noted at the tibiotalar articulation. Soft tissue edema is seen t hroughout the foot and ankle. Foci of soft tissue gas anteriorly are likely related to recent surgery . There is advanced atherosclerotic calcification of the regional arteries. IMPRESSION: 1. Postoperative change as above with evidence of further amputation of the anterior talus. 2. No acute fracture is seen. 3. The anterior talus is heterogeneous with no clear erosive disease identified. 4. Diffuse soft tissue edema as above. Soft tissue gas is likely on a postoperative basis Electronically signed by: Roddy Oscar M.D. 06/08/2022 2:04 PM
[2022-06-08] MEDS ORDERED: HYDROCORTISONE SOD 50 MG in SYRINGE 0 ML IV ONE (15:00)
--- NOTE | 2022-06-08 15:18 | Operative Report (OR) ---
DATE OF PROCEDURE: 06/08/2022. PREOPERATIVE DIAGNOSES: 1. Right foot osteomyelitis of the distal talus. 2. Tenosynovitis of the flexor hallucis longus tendon, with possible abscess. 3. A 3 cm diameter x 0.4 cm ulceration, right distal residual foot. 4. 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 POSTOPERATIVE DIAGNOSES: 1. Right foot osteomyelitis of the distal talus. 2. Tenosynovitis of the flexor hallucis longus tendon with degradation and tearing of the distal ten don. 3. A 3 cm diameter x 0.4 cm depth ulceration, right distal residual foot. 4. 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 5. Abscess, dorsal and medial right foot. 6. Osteomyelitis of the right calcaneus. PROCEDURE: 1. Right foot excision/exostectomy osteomyelitis of the talus. 2. Tenosynovectomy of the flexor hallucis longus tendon. 3. Partial resection flexor hallucis longus tendon. 4. Excision/exostectomy osteomyelitis of the calcaneus. 5. Debridement 3 cm diameter x 0.4 cm depth foot ulcer. 6. Evacuation abscess, dorsal and medial right foot. SURGEON: Neo Goodwin DO. FIRE ENGINE OPERATOR: None. ANESTHESIA: Regional with sedation. SPECIMENS: 1. Aerobic, anaerobic, Gram stain, abscess of the right foot. 2. Osteomyelitic bone of the talus. 3. Partial resection flexor hallucis longus tendon. DRAINS: One-half inch iodoform gauze drain. COMPLICATIONS: None. BLOOD LOSS: 200 mL. PERTINENT HISTORY: This is a 56-year-old gentleman who has had chronic progressive and worsening ulc eration of his residual right distal foot. He had a prior Chopart amputation performed by Dr. Fountain in [place], approximately 2019. Of late, he has been under the care of the [facility]; rosa padilla, significantly worsened with pain, swelling, redness and inability to ambulate, presented to [facility], admitted to the hospitalist service, placed on IV antibiotics. After further advanced imaging was performed, he was noted to have tenosynovitis, possible abscess around the flexo r hallucis longus tendon, with a concern for osteomyelitis of distal talus. The patient was then janine luated and scheduled for surgery as indicated. All potential risks, benefits, complications, alternatives, rehab potential for incomplete relief of symptoms, need for surgery, DVT, PE, , persistent pain, swelling, scarring, weakness, neurovascu lar injury, wound complications, need for further surgery or amputation was discussed with the patien t. The patient decided to proceed with the procedure as indicated. DESCRIPTION OF PROCEDURE: The patient was taken to the operative suite, popliteal block was performe d by the anesthesiologist. The patient was then placed supine on the operating table. After review o f consent and identification of proper site, the patient was sedated and a pneumatic tourniquet was a pplied over the proximal thigh over cast padding, however, was not used during the case. Next, the r ight lower extremity was then sterilely prepped and draped in the usual fashion, elevated and partial ly exsanguinated just at the level of the ankle with a 4-inch Esmarch bandage over a sterile surgical towel. The 15 blade scalpel after surgical timeout was performed was then used to make an incision along the interval between the previously placed flap closure of the distal residual right lower extr emity, a full thickness down to the level of bone. There was noted to be an abscess encountered dire ctly with thinning of the subdermal subcutaneous tissue. The site was then sharply elevated with 15 blade scalpel. Abscess fluid was then sampled for aerobic, anaerobic, Gram stain evaluation. The abs cess noted to track along the dorsal and dorsal medial aspect of the foot with tracking down to the l evel of the flexor hallucis longus. Grossly softened distal talus was noted in agreement with findin gs of MRI and radiographs. Next, a 10 mm osteotome was then used to resect the damaged portion of the talus, which was then francisco j inés using a rongeur and a large curette back to a stable bone. The bone that was grossly osteomyelit ic was then passed off as specimen for pathological assessment. Next, the abscess was then tracked along the medial aspect of the foot to the level of the flexor jessica lucis longus tendon. There was noted to be degradation, partial tearing of the terminal fibers of th e flexor hallucis longus. This was then sharply excised with 15-blade scalpel and passed off as spec imen for pathological assessment. Next, sharp debridement was then performed with 15 blade scalpel of any devitalized tissue in the katey p space of the foot. Also noted to be softening with probing with the 15 blade scalpel of the calcan eus consistent with osteomyelitis. This was then also sharply excised using osteotome and a rongeur back to a stable margin. After all tissue, which appeared to be affected by the infection was then s harply excised. Next, pulsatile lavage with 3 liters saline was then used to lavage the site until clear. The site w as then packed with one-half inch iodoform gauze and then using an exit tunneled place with hemostat and a small stab incision along the dorsal medial aspect of the foot with a 15 blade scalpel. The si te was then closed, a full-thickness closure with interrupted 3-0 nylon sutures using a combination o f simple and vertical mattress sutures. The 3 cm diameter x 0.4 cm ulceration of the distal residual foot was then sharply debrided at the level of subcutaneous fat. Any necrotic devitalized tissue sh arply excised. Site was then cleansed with sterile saline and a sterile compressive dressing was mateo lied consisting of Xeroform gauze, sterile 4 x 4s, ABD pads x2, cast padding, and an Oni wrap. The t ourniquet was released. The patient was awakened and taken to recovery in stable condition. Job ID: [id number]
[2022-06-08] MEDS: CEFEPIME 1,000 MG in SYRINGE 0 ML IV SCH (16:32)
--- NOTE | 2022-06-08 18:38 | Nephrology Progress Note ---
Date of Service June 08, 2022 Assessment & Plan (1) ESRD (end stage renal disease) on dialysis: Plan: Adequate clearance with treatment yesterday. BP and volume status acceptable. Next anticipated HD will be Saturday per TT schedule. Medications dosed appropriately dosed for kidney function. Vanco dosing per pharmacy. (2) Hyperkalemia: Plan: Improved with HD. Low potassium diet. Continue K binder on non-HD days as per home Rx. (3) Infection of amputation site of lower extremity: Plan: Empiric treatment with vancomycin and cefepime provided on admission. ID consultation suggesting continue same pending cultures. POD #0 s/p R foot excision/exostectomy osteomyelitis talus, tenosynovectomy flexor hallucis longus tendon, partial resection flexor hallucis longus tendon, excision/exostectomy osteomyelitis calcaneus by Dr. Goodwin with debridement and evacuation of abscess. Admission and Anticipated Discharge Date Admission Date: June 07, 2022 Subjective No acute events overnight. Tolerated surgery well today. Pain controlled. No fevers or chills. Completed HD yesterday without complications. Review of Systems Review of Systems: All systems reviewed & are unremarkable except as noted in HPI & below Physical Exam Constitutional: well developed; no acute distress Eyes: + anicteric sclerae; no corneal abnormality ENMT: Mouth: no oral mucosal abnormality and oral mucous membranes not dry Neck: normal visual inspection, trachea midline and + thick neck Respiratory: normal respiratory effort Cardiovascular: Rate/Rhythm: regular rate Extremities: + AV fistula (L forearm AVG); no edema Musculoskeletal: Extremities: no cyanosis and no clubbing Skin: normal turgor; no lesions Neurologic: Motor/Sensory: no tremor and no asterixis Psychiatric: Orientation: alert and oriented x 3 Results & Data ([facility]) Vital Signs (Past 12 Hours) Vital Signs Temp Pulse Pulse Resp BP BP Pulse Ox 06/08/22 18:06 36.7 C 99 H 17 133/74 99 06/08/22 17:40 36.9 C 103 H 17 112/47 L 95 06/08/22 16:29 36.9 C 81 17 113/50 L 93 06/08/22 13:41 37.1 C 93 H 17 99/67 L 95 06/08/22 13:00 37.1 C 100 H 20 102/70 95 06/08/22 12:45 36.5 C 88 12 104/75 94 06/08/22 12:35 81 12 92/64 L 97 06/08/22 12:25 91 H 25 H 103/69 100 06/08/22 12:16 36.0 C L 93 H 16 83/66 L 97 06/08/22 08:33 36.9 C 93 H 20 117/93 93 06/08/22 07:44 36.7 C 88 20 122/85 94 O2 Del Method O2 Flow Rate 06/08/22 18:06 Room Air 06/08/22 17:40 Room Air 06/08/22 16:29 Room Air 06/08/22 13:41 Room Air 06/08/22 13:00 Room Air 06/08/22 12:45 Room Air 06/08/22 12:35 Room Air 06/08/22 12:25 Oxymask 5 06/08/22 12:16 Oxymask 5 06/08/22 08:33 Room Air 06/08/22 07:44 Room Air Laboratory Results Laboratory Results - last 24 hr 06/08/22 06/08/22 06/08/22 07:27 07:27 07:27 WBC 8.38 RBC 3.55 L Hgb 11.2 L Hct 35.1 L MCV 98.9 MCH 31.5 MCHC 31.9 L RDW Std Deviation 53.1 H RDW Coeff of Marcelino 14.6 H Plt Count 117 L MPV 10.5 Sodium 140 Potassium 5.0 Chloride 106 Carbon Dioxide 22 Anion Gap 12 H BUN 50 H Creatinine 7.80 H* D Est Cr Clr Drug Dosing 11.3 Est GFR ( Amer) 8.0 Est GFR (Non-Af Amer) 6.9 BUN/Creatinine Ratio 6.4 L Glucose 83 POC Glucose Calcium 8.0 L Magnesium 2.1 Random Vancomycin 20.8 H 06/08/22 06/08/22 08:28 12:21 WBC RBC Hgb Hct MCV MCH MCHC RDW Std Deviation RDW Coeff of Marcelino Plt Count MPV Sodium Potassium Chloride Carbon Dioxide Anion Gap BUN Creatinine Est Cr Clr Drug Dosing Est GFR ( Amer) Est GFR (Non-Af Amer) BUN/Creatinine Ratio Glucose POC Glucose 77 142 H Calcium Magnesium Random Vancomycin PG Care Time/CCT Total # of Minutes Spent Total Time Spent with Patient: Total time spent is greater than 50% in coordination of care (as documented) at patient's floor/unit and/or counseling patient: Coding Level of Care Code 52925 SUB INP/OBS CARE MIN Diagnoses ESRD (end stage renal disease) on dialysis N18.6; Z99.2 Hyperkalemia E87.5 Infection of amputation site of lower extremity T87.40
[2022-06-08] MEDS: amLODIPine BESYLATE 5 MG TAB PO SCH (20:33)
[2022-06-08] MEDS: ZOLPIDEM TARTRATE 10 MG TAB PO SCH (20:33)
[2022-06-09] MEDS: HYDROmorphone INJ 0.5 MG/0.5 ML SYR IV PRN ×2 (01:14→11:38)
--- NOTE | 2022-06-09 07:53 | Hospitalist Progress Note ---
Date of Service June 09, 2022 Assessment & Plan (1) Infection of amputation site of lower extremity: Plan: Recently on cefdinir x 3 weeks, stopped outpatient as told looked good by wound care Presented w/ continued drainage/worsening pain to RLE amputation site, prior seen by Dr Goodwin Xray Status post application with lucencies in the bones of the foot which are nonspecific, may represent demineralization however osteomyelitis cannot be entirely excluded. If there is clinical concern, MRI can be performed. MRI obtained to eval for underlying AOM --> Abnormal marrow signal and erosive/destructive change at the anterior talus consistent with a site of osteomyelitis. Multiloculated fluid surrounding the flexor hallucis longus tendon. This could be due to a chronic tenosynovitis. Secondary infection would be impossible to exclude by imaging. Orthopedics consulted Initially on Vanco/Cefepime -- vanco trough elevated (weight incorrect in system, was 114kg when actually ~85kg). Hx MRSA in ankle cx in past--Held further abx for OR/cx, repeat vanco trough still within limits and therapeutic prior to surgery and resumed following WBC 11.6k -> 8.3k but elevation today likely combination of steroids given stress dose and surgery. AFEBRILE Blood cultures REMAIN NGTD x 48 hours PICC line ordered, was only able to get midline -- should be ok as long as not sending home on IV vanco. ?Dapto POD#1 surgery w/ Dr Goodwin 06/08. EBL 200cc Post-Op Diagnosis: * 1. Right foot osteomyelitis of the distal talus. * 2. Tenosynovitis of flexor hallucis longus tendon with degradation/tearing of the distal tendon * 3. A 3-cm diameter by 0.4 cm depth ulceration, right distal residual foot. * 4. 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 * 5. Abscess dorsal and medial foot * 6. Osteomyelitis right calcaneus CX from OR pending -- monitor, currently many WBC/no organisms seen ID consulted and following for recs once able to identify species Nephrology consulted given ESRD/hyperkalemia -- did get 2h 2L tx on 06/07, appreciate continued following/assistance -- next planned tx on Saturday. DECLINED HD FOR TODAY (NOT AVAILABLE TOMORROW PER NEPHRO) Daily patiromer ordered while non-HD days, continue low K diet, holding lisinopril. also ordered Renagel TID and his sodium bicarb BID Pain control -- hypersensitive prior evenings, remains on MS contin BID --Dilaudid available 0.5-1mg Q2H. Discussed w/ patient and can increase to Q1H if needed but hopefully now that both abscess have been addressed hopefully pain will be much better controlled -- he does endorse improvement in pain control States moving bowels, last BM last night DVTproph -- ok'd w/ Dr Goodwin to start Heparin SQ for today -- ordered to begin tonight. Monitor labs in AM (2) ESRD (end stage renal disease) on dialysis: Plan: Currently gets HD once weekly on Tuesdays, had a full session today prior to coming to the ED (misses frequently). Follows with Dr Quijano Nephrology on consult, HD for 06/08 for 2L, K was >5.7 K5.0 on 06/08, up to 5.9 today -- DECLINED HD FOR TODAY, not available tomorrow. Cr 10.3 but making urine Valtessa daily scheduled for non-HD days Continue low K diet Continue to hold lisinopril -- resumed post-op but did not get this morning and was able to be placed back on hold Resumed home sevelamer and sodium bicarb as rx by Dr Quijano and had not been giving Renal dose meds/avoid nephrotoxins when able Repeat vanco trough within therapeutic range at 1.64 -- pharmacy f ollowing/dosing Appreciate continued assistance by Nephrology (3) Atrial fibrillation: Plan: Stable , examines in SR -- SR w/ PVCs on EKG Has not been on Eliquis since September of 2021, unsure of the exact reason at this time but it appears that it may have been due to bleeding and bruising issues -- rec'd f/u PCP regarding this and likely should be on such to prevent stroke risk/clots I messaged PCP given prior notes indicate taking still 5mg BID however patient states he is NOT on this medication and did discuss w/ patient 06/08 to have further discussions w/ vascular and PCP outpatient to see if still needing Monitor K/mag Tx anemia w/ B12/folate supplementation and patient to get venofer outpt w/ dialysis (if he goes, per discussion with Dr Barreto) Check CT head given confusion overnight 06/06 but suspect related to opiate/pain medications. CT head negative. Mentation at baseline x 2 days Of note, if able to tolerate would rec we use at least baby ASA for his PAD (4) Anemia: Plan: hgb appears in 10-12 range, 11 on admit with ?lab error of 9.9 yesterday given 11 on AM labs B12/folate low as above, replacement ordered iron panel 22, TIBC low/unsat low, trans % sat only 15 but ferritin elevation 1063 likely reactive given current infection labs reviewed, Hgb 11.2 -> 10.4 due to acute blood loss from surgery w/ EBL 200cc. outpt f/u for iron replacement w/ HD, deferred inpatient given ferritin elevation/infection Monitor CBC on repeat (5) Chronic pain: Plan: Continue home MS contin Morphine not as effective, switched to Dilaudid -- DECREASED frequency to Q2H for pain control 0.5-1mg as needed ?consideration for gabapentin for neuropathy type pain as it does appear he was on this medication in past w/ vascular (6) Chronic constipation: Plan: Continue prn lactulose -- changed to BID, patient refusing this and stated moved his bowels yesterday. Does have +BS on exam but is distended monitor BMs, encourage use of lactulose if not moving them tomorrow could also consider giving dose of Relistor for opiate induced constipation but reports BM x 2 on -- monitor (7) BPH loc w urin obs/LUTS: Plan: Continue flomax (8) Psoriatic arthritis: Plan: Normally on prednisone 5mg PO BID Hold PO pred for now with current infection , NOT HAVING ANY HYPOTENSION (exception directly post op) -- will touch base w/ supervising provider about any need for stress dose steroids post-operatively given BP 99/67 ORDERED 1x dose hydrocortisone 50mg x1 NOW 06/08, resume 5mg prednisone for AM however changed to BID as patient takes at home (9) Hypertension: Plan: Stable Continue amlodipine -Patient is also on Lisinopril as prescribed by Nephrology -- held for AM given K/Cr Borderline post op at 99/67 -- stress dose steroids ordered BP 136/41, monitor (10) B12 deficiency: Plan: checked due to anemia/borderline MCV --> B12 LOW at 142 -- IM replacement while inpatient and would continue PO at d/c (11) Folate deficiency: Plan: checked due to anemia/borderline MCV --> Folate LOW 4.39, PO replacement ordered and would continue at discharge Plan continued inpatient stay monitor cx from OR ID following -- appreciate assistance Wound RN consulted -- of note he does follow with [facility] regularly Will remain inpatient through weekend as needing IV abx at d/c -- specific abx TBD based on cultures. CM aware and following Admission and Anticipated Discharge Date Admission Date: June 07, 2022 Supervising Physician Co-Signing Physician Notes The patient was not seen by me. The chart was reviewed. Case discussed with EVENS Velasquez. Agree with assessment and plan Subjective Eval this morning Given HC IV x 1 yesterday, resumed prednisone for today. He states he takes this twice daily. Changed in system. Also discussed baby ASA, he believes Dr Brannon did want him to be on that. Encouraged. Dr Angel entered room as well, patient declined HD for today, not available tomorrow. He states quality of life more important to him w/ 1x/week then the 3-4hr sessions w/o times with his kid. Discussed Veltassa (did get patiromer in days past), remains on low K diet, lisinopril to be on hold. Also on sevelamer per Dr Quijano, to resume for today. No fever/chills. Pain controlled. Not much sensation/mobility in his ankle today which is concerning for him. Not yet seen by Dr Goodwin but will relay concerns. Discussed cultures from OR without growth at this time. Questions/concerns addressed. Physical Exam Physical Exam: General: chronically ill appearing male sitting up in bed on his phone, NAD HEENT: head normocephalic, atraumatic, mmm, trachea midline Resp: CTAB, diminished in the bases without significant w/r, on room air CV: RRR, +systolic murmur, no significant edema, pulses palpable GI: +BS, LESS distended, NT : no [facility] MSK/Neuro: RLE with dressing in place, no shadowing, no lymphangitic streaking R hand w/ prior amputations to several digits prior s/p BKA on left well formed/no signs of infection Psych: AOx3, cooperative with care Results & Data Results & Data ([facility]) Vital Signs (Past 12 Hours) Vital Signs Temp Pulse Resp BP Pulse Ox Pulse Ox O2 Del Method 06/09/22 07:37 36.6 C 66 18 136/41 L 95 Room Air 06/08/22 21:00 96 06/09/22 03:19 36.2 C L 66 18 116/70 95 Room Air 06/08/22 22:52 Room Air 06/08/22 22:52 36.8 C 64 18 115/48 L 96 Room Air O2 Del Method 06/09/22 07:37 06/08/22 21:00 Room Air 06/09/22 03:19 06/08/22 22:52 06/08/22 22:52 Laboratory Results 06/09/22 06/09/22 06/09/22 Range/Units 08:36 08:36 08:36 WBC 11.41 H (4.8-10.8) K/ul RBC 3.31 L (4.70-6.10) M/uL Hgb 10.4 L (14.0-18.0) g/dl Hct 32.8 L (42.0-52.0) % MCV 99.1 (80.0-100.0) fL MCH 31.4 (25.0-34.0) pg MCHC 31.7 L (32.0-36.0) g/dL RDW Std Deviation 53.3 H (36.4-46.3) fL RDW Coeff of Marcelino 14.6 H (11.5-14.5) % Plt Count 133 (130-400) K/uL MPV 11.3 (9.4-12.4) fL Sodium 137 (136-145) mmol/L Potassium 5.9 H (3.5-5.1) mmol/L Chloride 104 (98-107) mmol/L Carbon Dioxide 22 (21-32) mmol/L Anion Gap 11 (3-11) BUN 68 H (6-23) mg/dl Creatinine 10.36 H* D (0.6-1.4) mg/dl Est Cr Clr Drug Dosing 8.5 ml/min Est GFR ( Amer) 5.7 ml/min Est GFR (Non-Af Amer) 4.9 ml/min BUN/Creatinine Ratio 6.6 L (10-20) Glucose 118 H (70-99(Fasting)) mg/dl POC Glucose (70-99) mg/dl Calcium 8.1 L (8.5-10.1) mg/dl Magnesium 2.4 (1.7-2.4) mg/dl Random Vancomycin 16.4 (10-20) mcg/ml 06/08/22 Range/Units 12:21 WBC (4.8-10.8) K/ul RBC (4.70-6.10) M/uL Hgb (14.0-18.0) g/dl Hct (42.0-52.0) % MCV (80.0-100.0) fL MCH (25.0-34.0) pg MCHC (32.0-36.0) g/dL RDW Std Deviation (36.4-46.3) fL RDW Coeff of Marcelino (11.5-14.5) % Plt Count (130-400) K/uL MPV (9.4-12.4) fL Sodium (136-145) mmol/L Potassium (3.5-5.1) mmol/L Chloride (98-107) mmol/L Carbon Dioxide (21-32) mmol/L Anion Gap (3-11) BUN (6-23) mg/dl Creatinine (0.6-1.4) mg/dl Est Cr Clr Drug Dosing ml/min Est GFR ( Amer) ml/min Est GFR (Non-Af Amer) ml/min BUN/Creatinine Ratio (10-20) Glucose (70-99(Fasting)) mg/dl POC Glucose 142 H (70-99) mg/dl Calcium (8.5-10.1) mg/dl Magnesium (1.7-2.4) mg/dl Random Vancomycin (10-20) mcg/ml Diagnostic Findings Foot X-Ray 06/08/22 12:54 RIGHT FOOT 3 VIEWS CLINICAL HISTORY: Postoperative examination. FINDINGS: 3 views of the right foot are compared to study dated 06/05/2022 and correlated with MRI of the ankle dated 06/05/2022. The skeletal structures are heterogeneously osteopenic. No acute fracture is seen. There is postsurgical change from amputation of the forefoot and midfoot. There has been further amputation of the anterior talus as compared to previous with surrounding soft tissue calcifications. The anterior talus is heterogeneous. No erosive change is clearly seen. There is a large plantar heel spur. Degenerative change is noted at the tibiotalar articulation. Soft tissue edema is seen throughout the foot and ankle. Foci of soft tissue gas anteriorly are likely related to recent surgery. There is advanced atherosclerotic calcification of the regional arteries. IMPRESSION: 1. Postoperative change as above with evidence of further amputation of the anterior talus. 2. No acute fracture is seen. 3. The anterior talus is heterogeneous with no clear erosive disease identified. 4. Diffuse soft tissue edema as above. Soft tissue gas is likely on a postoperative basis Electronically signed by: Roddy Oscar M.D. 06/08/2022 2:04 PM PG Care Time/CCT Total # of Minutes Spent Total Time Spent with Patient: Total time spent is greater than 50% in coordination of care (as documented) at patient's floor/unit and/or counseling patient: Coding Level of Care Code 94957 SUB INP/OBS CARE 3/50MIN Diagnoses Infection of amputation site of lower extremity T87.40 ESRD (end stage renal disease) on dialysis N18.6; Z99.2 Atrial fibrillation I48.91 Anemia D64.9 Chronic pain G89.29 Chronic constipation K59.09 BPH loc w urin obs/LUTS N40.1 Psoriatic arthritis L40.50 Hypertension I10 B12 deficiency E53.8 Folate deficiency E53.8
[2022-06-09] MEDS: TAMSULOSIN HCL 0.4 MG CAP PO SCH ×2 (08:22→20:20)
[2022-06-09] MEDS: FOLIC ACID 400 MCG TAB PO SCH (08:22)
[2022-06-09] MEDS: DOCUSATE SODIUM/SENNA 50/8.6MG TAB PO SCH (08:22)
[2022-06-09] MEDS: THIAMINE HCL 100 MG TAB PO SCH ×2 (08:22→20:21)
[2022-06-09] MEDS: CYANOCOBALAMIN 1000 MCG/ML VIAL IM SCH (08:23)
[2022-06-09] MEDS: FAMOTIDINE 20 MG in SYRINGE 3 ML IV SCH (08:23)
[2022-06-09] MEDS: predniSONE 5 MG TAB PO SCH (08:24)
[2022-06-09] MEDS: HYDROmorphone INJ 1 MG/ML SYRINGE IV PRN ×7 (08:32→22:47)
[2022-06-09] MEDS: LACTULOSE SYRUP 20 GM/30 ML UDC PO SCH ×2 (08:33→20:21)
[2022-06-09] MEDS: MoRPHine SULFATE CR 15 MG TABCR PO SCH ×2 (08:33→21:07)
[2022-06-09 08:53] LABS: Hematocrit (blood only) 32.8 % (42.0-52.0); Hemoglobin 10.4 g/dl (14.0-18.0); Mean Corpuscular Hemoglobin 31.4 pg (25.0-34.0); Mean Corpuscular Hgb Conc 31.7 g/dL (32.0-36.0); Mean Corpuscular Volume 99.1 fL (80.0-100.0); Mean Platelet Volume 11.3 fL (9.4-12.4); Platelet Count 133 K/uL (130-400); RDW Coefficient of Variation 14.6 % (11.5-14.5); RDW Standard Deviation 53.3 fL (36.4-46.3); Red Blood Count 3.31 M/uL (4.70-6.10); White Blood Count 11.41 K/ul (4.8-10.8)
--- NOTE | 2022-06-09 08:59 | Nephrology Progress Note ---
Date of Service June 09, 2022 Assessment & Plan (1) ESRD (end stage renal disease) on dialysis: Plan: * Hyperkalemia reviewed with patient this am. Risks of untreated hyperkalemia including arrhythmia discussed in detail. Patient declines HD but will take Veltassa therapy * Discussed w/ primary service this am. Will stop Lisinopril, order low K diet and repeat PRP this afternoon * Patient indicates that regular dialysis does not provide him w/ quality of li fe. He does not wish to stop but will only agree to HD 2x/week on , for 2 hrs per treatment (2) Hyperkalemia: Plan: * Low potassium diet. Continue daily Veltassa (3) Infection of amputation site of lower extremity: Plan: * Empiric treatment with vancomycin and cefepime provided on admission. ID consultation suggesting continue same pending cultures. * s/p R foot debridement and evacuation of abscess by Dr. Goodwin 06/08/22 Admission and Anticipated Discharge Date Admission Date: June 07, 2022 Subjective Mr. Hernandez was evaluated in his hospital room this morning. He was dialyzed without complication. He voiced no new medical concerns Review of Systems Constitutional: no fever Eyes: no problem reported Ear, Nose, Mouth, Throat: no problem reported Respiratory: no dyspnea Cardiovascular: no chest pain Gastrointestinal: no abdominal pain Physical Exam Constitutional: not in distress Eyes: PERRL, conjunctivae normal, anicteric sclerae ENMT: external ear and nose normal, oropharynx normal Neck: trachea midline, no thyromegaly Respiratory: normal respiratory effort, lungs clear to auscultation Cardiovascular: RRR, no murmur, no edema Extremities: + AV fistula (L forearm AVG + bruit) Musculoskeletal: R foot wrapped. s/p L BKA and amputation of several fingers Results & Data ([facility]) Vital Signs (Past 12 Hours) Vital Signs Temp Pulse Resp BP Pulse Ox Pulse Ox O2 Del Method 06/09/22 07:37 36.6 C 66 18 136/41 L 95 Room Air 06/08/22 21:00 96 06/09/22 03:19 36.2 C L 66 18 116/70 95 Room Air 06/08/22 22:52 Room Air 06/08/22 22:52 36.8 C 64 18 115/48 L 96 Room Air O2 Del Method 06/09/22 07:37 06/08/22 21:00 Room Air 06/09/22 03:19 06/08/22 22:52 06/08/22 22:52 Laboratory Results Laboratory Tests 06/09/22 08:36 WBC 11.41 H Hgb 10.4 L Hct 32.8 L Plt Count 133 Laboratory Tests 06/09/22 08:36 Sodium 137 Potassium 5.9 H Chloride 104 Carbon Dioxide 22 BUN 68 H Creatinine 10.36 H* D Glucose 118 H Calcium 8.1 L PG Care Time/CCT Total # of Minutes Spent Total Time Spent with Patient: Total time spent is greater than 50% in coordination of care (as documented) at patient's floor/unit and/or counseling patient: Coding Level of Care Code 41934 SUB INP/OBS CARE 3/50MIN Diagnoses ESRD (end stage renal disease) on dialysis N18.6; Z99.2 Hyperkalemia E87.5 Infection of amputation site of lower extremity T87.40
[2022-06-09 09:17] LABS: BUN Creatinine Ratio 6.6 (10-20); Calcium 8.1 mg/dl (8.5-10.1); Creatinine Clr Calc Pharmacy 8.5 ml/min; Est GFR (African American) 5.7 ml/min; Est GFR (Non-African American) 4.9 ml/min; Magnesium 2.4 mg/dl (1.7-2.4); Potassium 5.9 mmol/L (3.5-5.1)
[2022-06-09] MEDS ORDERED: PATIROMER CALCIUM SORBITEX 8.4 GM PACK PO SCH (11:00)
[2022-06-09] MEDS: lisinopril 5 MG TAB PO SCH (11:28)
[2022-06-09] MEDS: SEVELAMER HCL 800 MG TABLET PO SCH ×2 (11:46→18:07)
[2022-06-09] MEDS ORDERED: SEVELAMER HCL 800 MG TABLET PO SCH (12:00)
[2022-06-09] MEDS ORDERED: VANCOMYCIN HCL 500 MG in DEXTROSE 5% 100 ML IV STA (12:36)
[2022-06-09] MEDS ORDERED: HYDROmorphone INJ 0.5 MG/0.5 ML SYR IV STA (12:53)
[2022-06-09] MEDS ORDERED: HYDROmorphone INJ 0.5 MG/0.5 ML SYR IV PRN ×2 (12:56→13:26)
--- NOTE | 2022-06-09 12:59 | Pharmacy Report ---
Pharmacy PK ABX Note - Date of Service June 09, 2022 - Assessment and Plan Assessment 56 year old M receiving IV Vancomycin + Cefepime for treatment of osteomyelitis of partial right foot amputation site. PMH significant for renal cell carcinoma S/P left nephrectomy ESRD on he modialysis on Tuesdays & (non-compliant), afib (No longer on anticoagulation), DM, HTN, CAD, ALBA, hyperlipidemia, chronic constipation, S/P previous left BKA and right partial metatarsal amputations, S/P amputation of Right 2-4 digits on 03/18/2020, RA currently on prednisone therapy, and BPH. Pertinent microbiologic data includes: Positive MRSA Nasal Swab, foot cx growing staph species BC cultures No Growth Day # 4 of antimicrobial therapy. UO yesterday = 1375ml Patient scheduled for surgical debridement of osteomyelitis tomorrow with Dr Mora. Plan Vancomycin * Loading dose: 2750 mg (32mg/kg) IV x 1 given 06/05 @1912 - this was given based on incorrect weight entered in shopp on admission to ED. * Random level = 16.4 mcg/ml this AM which indicates some clearance * Refused HD yesterday 06/08. Per nephro note, patient agrees to only 2x HD on and for 2 hrs each. Discussed with provider, Will redose with a conservative 500mg dose X 1 and recheck AM level * Recheck random Vancomycin level tomorrow morning Cefepime 1g IV Q24 H - on hold until OR cultures Pharmacy will continue to follow and will adjust dose/frequency as necessary. Thank you.
--- NOTE | 2022-06-09 13:19 | Orthopedic Progress Note ---
Date of Service June 09, 2022 Assessment & Plan (1) Osteomyelitis: Plan: Dressing change and pull partial packing tomorrow. Ice and elevate. DVT prophylaxis per medicine team 6 wks IV anbx via PICC recommended. (2) Diabetic ulcer of right foot: (3) Abscess of right foot: Admission and Anticipated Discharge Date Admission Date: June 07, 2022 Subjective Mr. Hernandez was evaluated in his hospital room this morning with the nurse present. He was dialyzed without complication. He is having moderate pain since his nerve block is wearing off. Overall marked improvement in pain since surgery cleared active infection. Decreased inflammation in his foot and lower leg. Physical Exam Physical Exam: Dressing intact right foot. Decreased pain w/ palpation. No calf tenderness. Compartments soft with brisk cap refill. Results & Data ([facility]) Vital Signs (Past 12 Hours) Vital Signs Temp Pulse Resp BP Pulse Ox O2 Del Method 06/09/22 12:28 36.8 C 84 16 142/79 H 95 Room Air 06/09/22 07:37 36.6 C 66 18 136/41 L 95 Room Air 06/09/22 03:19 36.2 C L 66 18 116/70 95 Room Air Laboratory Results Results reviewed. Diagnostic Findings Images reviewed. (1) Osteomyelitis Laterality: right Osteomyelitis location: foot Osteomyelitis type: unspecified type Qualified Code(s): M86.9 - Osteomyelitis, unspecified
[2022-06-09] MEDS ORDERED: HYDROmorphone INJ 1 MG/ML SYRINGE IV STA (13:25)
[2022-06-09 16:32] LABS: BUN Creatinine Ratio 6.9 (10-20); Creatinine Clr Calc Pharmacy 8.7 ml/min; Est GFR (African American) 5.8 ml/min; Potassium 5.5 mmol/L (3.5-5.1)
[2022-06-09] MEDS: GABAPENTIN 300 MG CAP PO SCH (16:33)
[2022-06-09] MEDS: HEPARIN SOD 5,000 UNIT/0.5 ML VIAL SQ SCH (20:20)
[2022-06-09] MEDS: amLODIPine BESYLATE 5 MG TAB PO SCH (20:21)
[2022-06-09] MEDS: ZOLPIDEM TARTRATE 10 MG TAB PO SCH (20:21)
[2022-06-09] MEDS: CEFEPIME 1,000 MG in SYRINGE 0 ML IV SCH (21:07)
[2022-06-10] MEDS: HYDROmorphone INJ 1 MG/ML SYRINGE IV PRN ×3 (00:52→07:58)
[2022-06-10] MEDS: CYANOCOBALAMIN 1000 MCG/ML VIAL IM SCH ×2 (07:19→07:51)
[2022-06-10] MEDS: DOCUSATE SODIUM/SENNA 50/8.6MG TAB PO SCH ×2 (07:20→07:30)
[2022-06-10] MEDS: THIAMINE HCL 100 MG TAB PO SCH ×2 (07:21→21:05)
[2022-06-10] MEDS: predniSONE 5 MG TAB PO SCH ×3 (07:21→21:05)
[2022-06-10] MEDS: SEVELAMER HCL 800 MG TABLET PO SCH ×4 (07:25→17:37)
[2022-06-10] MEDS: TAMSULOSIN HCL 0.4 MG CAP PO SCH ×3 (07:26→21:05)
[2022-06-10] MEDS: FOLIC ACID 400 MCG TAB PO SCH (07:27)
[2022-06-10] MEDS: HEPARIN SOD 5,000 UNIT/0.5 ML VIAL SQ SCH ×2 (07:28→21:05)
--- NOTE | 2022-06-10 07:34 | Hospitalist Progress Note ---
Date of Service June 10, 2022 Assessment & Plan (1) Infection of amputation site of lower extremity: Plan: Recently on cefdinir x 3 weeks, stopped outpatient as told looked good by wound care Presented w/ continued drainage/worsening pain to RLE amputation site, prior seen by Dr Goodwin Xray Status post application with lucencies in the bones of the foot which are nonspecific, may represent demineralization however osteomyelitis cannot be entirely excluded MRI obtained to eval for underlying AOM --> Abnormal marrow signal and erosive/destructive change at the anterior talus consistent with a site of osteomyelitis. Multiloculated fluid surrounding the flexor hallucis longus tendon. This could be due to a chronic tenosynovitis. Secondary infection would be impossible to exclude by imaging. Orthopedics consulted, Dr Goodwin POD#2. EBL 200cc Post-Op Diagnosis: * 1. Right foot osteomyelitis of the distal talus. * 2. Tenosynovitis of flexor hallucis longus tendon with degradation/tearing of the distal tendon * 3. A 3-cm diameter by 0.4 cm depth ulceration, right distal residual foot. * 4. 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 * 5. Abscess dorsal and medial foot * 6. Osteomyelitis right calcaneus Vanco/cefepime IV abx (dosed for weight 114kg initially), trough therapeutic and 500mg provided yesterday, pharmacy managing CX from OR w/ MRSA, gram positive cocci-- monitor final WBC wnl, afebrile -- blood cultures NGTD. Of note, on prednisone 5mg BID, increased to BID for today ID consulted and will f/u in AM for recommendations Planning for 6wks IV abx Dressing changed today by Dr Goodwin, nursing to change/remove packing tomorrow Will need to be NWB x 6 weeks RLE. Messaged CM about rolling scooter for at discharge Pain control -- continue home MS Contin BID, Dilaudid available prn but did add Gabapentin 300mg daily, renally dosed which does appear to be effective and can continue at d/c (he has rx at home) Reports moving bowels Heparin SQ added for DVT prophyalxis. Of note, rec d/c on baby ASA, should f/u with PCP regarding AC w/ hx afib not on since last summer Patient hopeful for discharge tomorrow with IV abx/wound follow up. CM alerted and waiting for final abx selection. PICC line in place already Nephrology consulted and following for ESRD/hyperkalemia. Veltessa increased to 16.8gm daily on non-HD days (2) ESRD (end stage renal disease) on dialysis: Plan: Currently gets HD once weekly on Tuesdays, had a full session prior to coming to the ED (misses frequently). Follows with Dr Quijano (initially w/ Dr Barreto for hx renal ca s/p nephrectomy) Nephrology on consult, HD for 06/08 for 2L, K was >5.7 K5.0 on 06/08, up to 5.9 today -- DECLINED HD 06/09, not available 06/10 but K stable at 5.5 on repeat and Veltassa increased to 16.8gm daily Monitor K, d/c lisinopril, continue low K diet Continue home sevelamer and sodium bicarb as rx by Dr Quijano and had not been giving prior Renal dose meds/avoid nephroxins when able Continued nephro assistance appreciated (3) Atrial fibrillation: Plan: Stable , examines in SR -- SR w/ PVCs on EKG NOT ON ELIQUIS since 09/2021, unsure exact reason but appears issues w/ bleeding --> messaged PCP and discussed w/ patient should have outpt f/u regarding ongoing need. Tx anemia w/ nephro in f/u with HD for Venofer, deferred in setting active infection (4) Anemia: Plan: hgb appears in 10-12 range, 11 on admit with ?lab error of 9.9 yesterday given 11 on AM labs B12/folate LOW -- replacement ordered and would continue at discharge iron panel 22, TIBC low/unsat low, trans % sat only 15 but ferritin elevation 1063 likely reactive given current infection hgb 10.4 due to acute blood loss from surgery w/ EBL 200cc --> repeat 9.7 but no active bleeding reported, passed on HD day prior outpt f/u for iron replacement w/ HD, deferred inpatient given ferritin elevation/infection Monitor CBC on repeat (5) Chronic pain: Plan: Continue home MS contin Morphine not as effective, switched to Dilaudid and he states is going to limit extra pain medications today and feeling better continue gabapentin added 06/09 for pain and continue at d/c. he states he already has rx for such (6) Chronic constipation: Plan: Continue prn lactulose -- changed to BID but patient refusing and stating moving his bowels (reported BM 06/07, 06/08) (7) BPH loc w urin obs/LUTS: Plan: Continue flomax UOP 0.42ml/kg/hr Of note, IS DIALYSIS patient (8) Psoriatic arthritis: Plan: Normally on prednisone 5mg PO BID Hold PO pred for now with current infection , NOT HAVING ANY HYPOTENSION (exception directly post op) -- will touch base w/ supervising provider about any need for stress dose steroids post-operatively given BP 99/67 ORDERED 1x dose hydrocortisone 50mg x1 NOW 06/08, resume 5mg prednisone for AM however changed to BID as patient takes at home (9) Hypertension: Plan: Stable Continue amlodipine -Patient is also on Lisinopril as prescribed by Nephrology -- held for AM given K/Cr and DISCONTINUED BP stable 115/72 (10) B12 deficiency: Plan: checked due to anemia/borderline MCV --> B12 LOW at 142 -- IM replacement while inpatient and would continue PO at d/c (11) Folate deficiency: Plan: checked due to anemia/borderline MCV --> Folate LOW 4.39, PO replacement ordered and would continue at discharge Plan continued inpatient stay CX MRSA, monitor final and planning to touch base w/ ID once finalized Patient hopeful for discharge TOMORROW Admission and Anticipated Discharge Date Admission Date: June 07, 2022 Supervising Physician Co-Signing Physician Notes The patient was not seen by me. The chart was reviewed. Case discussed with EVENS Velasquez. Agree with assessment and plan Subjective Seen this morning, Dr Goodwin actively changing dressing. RN/wound care able to change tomorrow and remove packing. Continues on IV abx, cultures growing MRSA, not yet final. Discussed reaching out to ID in AM w/ final cultures and CM aware of need. Hope fully will be able to have everything arranged to be able to discharge patient tomorrow. He is to get his son on Saturday evening, top priority/quality for patient. 5 children, 43 to 12 years in age. 12 year old not able to get make up days for days that he missed. Has 1500sq foot floor/propane heating, $$ concerns while no one there. Pain controlled but present, he is planning on taking on his scheduled medications. Gabapentin added yesterday and he has at home but forgets what prior issue but the "fire poker" sensation is improved since continuing. K stable 5.5 compared to yesterday, he states Dr Angel was going to increase the dose. He was on this at home every other day, may benefit from daily w/ exception of HD days. Questions/concerns addressed at this time. Will hopefully be able to d/c tomorrow on 6wks IV abx. Plans f/u Shilpa, although had some concerns regarding prior infection however his initial pain he thought was having his prosthetic adjustment to put more weight on his heel. He is to be non-weight bearing on that ext and discussed possible wheeled/rolator type scooter and will touch base with CM /provide rx. Physical Exam Physical Exam: General: chronically ill appearing male sitting up in bed getting dressing change by orthopedics, appears much more comfortable/awake/alert, pleasant HEENT: head normocephalic, atraumatic, mmm, trachea midline Resp: CTAB, diminished in the bases without significant w/r, on room air CV: RRR, +systolic murmur, no significant edema, pulses palpable GI: +BS, LESS distended, NT : no kaiser MSK/Neuro: RLE with dressing in place, currently being changed by orthopedics, compartments soft, DECREASED erythema, packing changed, less tender w/ palpation. dressing c/d/i at end of encounter R hand w/ prior amputations to several digits prior s/p BKA on left well formed/no signs of infection Psych: AOx3, cooperative with care Results & Data Results & Data ([facility]) Vital Signs (Past 12 Hours) Vital Signs Pulse Ox O2 Del Method O2 Del Method 06/09/22 22:21 Room Air 06/09/22 21:00 96 Room Air Laboratory Results 06/10/22 06/10/22 06/10/22 Range/Units 07:59 07:59 07:59 WBC 7.54 (4.8-10.8) K/ul RBC 3.05 L (4.70-6.10) M/uL Hgb 9.7 L (14.0-18.0) g/dl Hct 29.6 L (42.0-52.0) % MCV 97.0 (80.0-100.0) fL MCH 31.8 (25.0-34.0) pg MCHC 32.8 (32.0-36.0) g/dL RDW Std Deviation 52.0 H (36.4-46.3) fL RDW Coeff of Marcelino 14.5 (11.5-14.5) % Plt Count 138 (130-400) K/uL MPV 10.7 (9.4-12.4) fL Immature Gran % (Auto) 5.6 % Neut % (Auto) 74.1 % Lymph % (Auto) 10.7 % [place] % (Auto) 8.0 % Eos % (Auto) 1.3 % Baso % (Auto) 0.3 % Neut # (Auto) 5.59 (1.40-6.50) K/uL Lymph # (Auto) 0.81 L (1.2-3.4) K/uL [place] # (Auto) 0.60 H (0.11-0.59) K/uL Eos # (Auto) 0.10 (0-0.50) K/uL Baso # (Auto) 0.02 (0-0.2) K/uL Immature Gran # (Auto) 0.42 H (0.01-0.20) K/uL Polychromasia 1+ Sodium 136 (136-145) mmol/L Potassium 5.5 H (3.5-5.1) mmol/L Chloride 104 (98-107) mmol/L Carbon Dioxide 20 L (21-32) mmol/L Anion Gap 12 H (3-11) BUN 74 H (6-23) mg/dl Creatinine 10.71 H* D (0.6-1.4) mg/dl Est Cr Clr Drug Dosing 8.3 ml/min Est GFR ( Amer) 5.4 ml/min Est GFR (Non-Af Amer) 4.7 ml/min BUN/Creatinine Ratio 6.9 L (10-20) Glucose 83 (70-99(Fasting)) mg/dl Calcium 8.5 (8.5-10.1) mg/dl Phosphorus 7.9 H (2.5-4.9) mg/dl Magnesium 2.4 (1.7-2.4) mg/dl Random Vancomycin 18.0 (10-20) mcg/ml 06/09/22 Range/Units 15:45 WBC (4.8-10.8) K/ul RBC (4.70-6.10) M/uL Hgb (14.0-18.0) g/dl Hct (42.0-52.0) % MCV (80.0-100.0) fL MCH (25.0-34.0) pg MCHC (32.0-36.0) g/dL RDW Std Deviation (36.4-46.3) fL RDW Coeff of Marcelino (11.5-14.5) % Plt Count (130-400) K/uL MPV (9.4-12.4) fL Immature Gran % (Auto) % Neut % (Auto) % Lymph % (Auto) % [place] % (Auto) % Eos % (Auto) % Baso % (Auto) % Neut # (Auto) (1.40-6.50) K/uL Lymph # (Auto) (1.2-3.4) K/uL [place] # (Auto) (0.11-0.59) K/uL Eos # (Auto) (0-0.50) K/uL Baso # (Auto) (0-0.2) K/uL Immature Gran # (Auto) (0.01-0.20) K/uL Polychromasia Sodium 136 (136-145) mmol/L Potassium 5.5 H (3.5-5.1) mmol/L Chloride 103 (98-107) mmol/L Carbon Dioxide 22 (21-32) mmol/L Anion Gap 11 (3-11) BUN 70 H (6-23) mg/dl Creatinine 10.21 H* (0.6-1.4) mg/dl Est Cr Clr Drug Dosing 8.7 ml/min Est GFR ( Amer) 5.8 ml/min Est GFR (Non-Af Amer) 5.0 ml/min BUN/Creatinine Ratio 6.9 L (10-20) Glucose 122 H (70-99(Fasting)) mg/dl Calcium 8.0 L (8.5-10.1) mg/dl Phosphorus (2.5-4.9) mg/dl Magnesium (1.7-2.4) mg/dl Random Vancomycin (10-20) mcg/ml PG Care Time/CCT Total # of Minutes Spent Total Time Spent with Patient: Total time spent is greater than 50% in coordination of care (as documented) at patient's floor/unit and/or counseling patient: Coding Level of Care Code 50832 SUB INP/OBS CARE 3/50MIN Diagnoses Infection of amputation site of lower extremity T87.40 ESRD (end stage renal disease) on dialysis N18.6; Z99.2 Atrial fibrillation I48.91 Anemia D64.9 Chronic pain G89.29 Chronic constipation K59.09 BPH loc w urin obs/LUTS N40.1 Psoriatic arthritis L40.50 Hypertension I10 B12 deficiency E53.8 Folate deficiency E53.8
[2022-06-10] MEDS: LACTULOSE SYRUP 20 GM/30 ML UDC PO SCH ×2 (07:35→20:58)
[2022-06-10] MEDS: FAMOTIDINE 20 MG in SYRINGE 3 ML IV SCH (07:50)
[2022-06-10 08:25] LABS: Hematocrit (blood only) 29.6 % (42.0-52.0); Hemoglobin 9.7 g/dl (14.0-18.0); Mean Corpuscular Hemoglobin 31.8 pg (25.0-34.0); Mean Corpuscular Hgb Conc 32.8 g/dL (32.0-36.0); Mean Platelet Volume 10.7 fL (9.4-12.4); Platelet Count 138 K/uL (130-400); RDW Coefficient of Variation 14.5 % (11.5-14.5); Red Blood Count 3.05 M/uL (4.70-6.10); White Blood Count 7.54 K/ul (4.8-10.8)
[2022-06-10 08:44] LABS: BUN Creatinine Ratio 6.9 (10-20); Calcium 8.5 mg/dl (8.5-10.1); Creatinine Clr Calc Pharmacy 8.3 ml/min; Est GFR (African American) 5.4 ml/min; Est GFR (Non-African American) 4.7 ml/min; Magnesium 2.4 mg/dl (1.7-2.4); Phosphorus 7.9 mg/dl (2.5-4.9); Potassium 5.5 mmol/L (3.5-5.1)
[2022-06-10 08:46] LABS: Basophils # (auto) 0.02 K/uL (0-0.2); Basophils % (auto) 0.3 %; Eosinophils % (auto) 1.3 %; Immature Granulocytes # (auto) 0.42 K/uL (0.01-0.20); Immature Granulocytes % (auto) 5.6 %; Lymphocytes # (auto) 0.81 K/uL (1.2-3.4); Lymphocytes % (auto) 10.7 %; Neutrophils # (auto) 5.59 K/uL (1.40-6.50); Neutrophils % (auto) 74.1 %; Polychromasia 1+
--- NOTE | 2022-06-10 09:36 | Nephrology Progress Note ---
Date of Service June 10, 2022 Assessment & Plan (1) ESRD (end stage renal disease) on dialysis: Plan: * Hyperkalemia reviewed with patient this am. Risks of untreated hyperkalemia including arrhythmia discussed in detail. Patient declines HD but will take Veltassa therapy * Given recurrent hyperkalemia and nonadherence with prescribed dialysis therapy, will increase Veltassa to 16.8 g po daily * Continue low K diet. Avoid YAHIR/ARB. Repeat PRP this afternoon * Dialysis nonadherence discussed in detail w/ Mr. Hernandez again this am. He indicates that regular dialysis does not provide him w/ quality of life. He does not wish to stop but will agree to HD only 2x/week on and for 2 hrs per treatment. He understands the risks of inadequate dialysis including CHF, arrhythmia, potential . To my evaluation this morning he is A&Ox3, demonstrates appropriate affect and understanding of our conversation. He appears to be competent to make bad decisions (2) Hyperkalemia: Plan: * Low potassium diet. Will increase Veltassa dose as outlined above (3) Infection of amputation site of lower extremity: Plan: * s/p R foot debridement and evacuation of abscess by Dr. Goodwin 06/08/22 * Wound cultures + for MRSA sensitive to Clindamycin, Daptomycin, Erythromycin, Tetracycline and Vancomycin. Await ID recommendations regarding antibiotic therapy Admission and Anticipated Discharge Date Admission Date: June 07, 2022 Subjective Mr. Hernandez was evaluated in his hospital room this morning. He voiced no new medical concerns. He is anxious to return home soon Review of Systems Constitutional: no fever Eyes: no problem reported Ear, Nose, Mouth, Throat: no problem reported Respiratory: no dyspnea Cardiovascular: no chest pain Gastrointestinal: no abdominal pain Physical Exam Constitutional: not in distress Eyes: PERRL, conjunctivae normal, anicteric sclerae ENMT: external ear and nose normal, oropharynx normal Neck: trachea midline, no thyromegaly Respiratory: normal respiratory effort, lungs clear to auscultation Cardiovascular: RRR, no murmur, no edema Extremities: + AV fistula (L fo rearm AVG + bruit) Musculoskeletal: R foot with clean, dry dressing. L BKA Results & Data ([facility]) Vital Signs (Past 12 Hours) Vital Signs Temp Pulse Resp BP Pulse Ox O2 Del Method 06/10/22 07:40 36.5 C 69 16 115/72 97 Room Air 06/09/22 22:21 Room Air Laboratory Results Laboratory Tests 06/10/22 06/10/22 07:59 07:59 WBC 7.54 Hgb 9.7 L Hct 29.6 L Plt Count 138 Sodium 136 Potassium 5.5 H Chloride 104 Carbon Dioxide 20 L BUN 74 H Creatinine 10.71 H* D Glucose 83 Calcium 8.5 Phosphorus 7.9 H Magnesium 2.4 PG Care Time/CCT Total # of Minutes Spent Total Time Spent with Patient: Total time spent is greater than 50% in coordination of care (as documented) at patient's floor/unit and/or counseling patient: Coding Level of Care Code 24074 SUB INP/OBS CARE 3/50MIN Diagnoses ESRD (end stage renal disease) on dialysis N18.6; Z99.2 Hyperkalemia E87.5 Infection of amputation site of lower extremity T87.40
[2022-06-10] MEDS ORDERED: PATIROMER CALCIUM SORBITEX 8.4 GM PACK PO SCH (09:45)
--- NOTE | 2022-06-10 09:49 | Pharmacy Report ---
Pharmacy PK ABX Note - Date of Service June 10, 2022 - Assessment and Plan Assessment * 56 year old M receiving IV Vancomycin + Cefepime for treatment of osteomyelitis of partial right foot amputation site. * PMH significant for renal cell carcinoma S/P left nephrectomy ESRD on hemodialysis on Tuesdays & (non-compliant), afib (No longer on anticoagulation), DM, HTN, CAD, ALBA, hyperlipidemia, chronic constipation, S/P previous left BKA and right partial metatarsal amputations, S/P amputation of Right 2-4 digits on 03/18/2020, RA currently on prednisone therapy, and BPH. * Surgical debridement of osteomyelitis on 06/08 * Pertinent microbiologic data includes: * Positive MRSA Nasal Swab * 06/08 surgical foot cx growing staph species * BC cultures No Growth * No HD today per nephrology note. Per nephro note, patient agrees to only 2x HD on and for 2 hrs each. Unclear if patient will accept HD tomorrow either as it's a Saturday - next HD will likely be Saturday Plan Vancomycin * Loading dose: 2750 mg (32mg/kg) IV x 1 given 06/05 @1912 - this was given based on incorrect weight entered in [employer] on admission to ED. * Patient does clear vancomycin without HD * Random level this AM 18.0 mcg/mL. Even with non-HD clearance, level not anticipated to be subtherapeutic in the next 24 hours without HD. * Recheck random Vancomycin level tomorrow morning Pharmacy will continue to follow and will adjust dose/frequency as necessary. Thank you.
[2022-06-10] MEDS: MoRPHine SULFATE CR 15 MG TABCR PO SCH ×2 (09:53→22:28)
--- NOTE | 2022-06-10 11:01 | Orthopedic Progress Note ---
Date of Service June 10, 2022 Assessment & Plan (1) Osteomyelitis: Plan: Sterile dry dressing change and packing pulled approximately 9 inches today. Recommend repeat dressing change by nursing with pulling of all remaining packing tomorrow. Maintain nonweightbearing right lower extremity for 6 weeks to allow for soft tissue healing and maturation of amputation site. Ice and elevate. DVT prophylaxis per medicine team 6 wks IV anbx via PICC recommended. (2) Diabetic ulcer of right foot: (3) Abscess of right foot: Admission and Anticipated Discharge Date Admission Date: June 07, 2022 Subjective Mr. Hernandez was evaluated in his hospital room this morning and noted some improvement in pain right foot. No fevers or chills. Care plan discussed with Dr. Angel. Physical Exam Physical Exam: Dressing intact right foot. Dressing changed in sterile fashion with approximately 9 inches of packing pulled from the residual foot. No signs of active infection. No purulence. Erythema decreased significantly. Decreased pain w/ palpation. No calf tenderness. Compartments soft with brisk cap refill. Results & Data ([facility]) Vital Signs (Past 12 Hours) Vital Signs Temp Pulse Resp BP Pulse Ox O2 Del Method 06/10/22 07:40 36.5 C 69 16 115/72 97 Room Air Diagnostic Findings Reviewed. (1) Osteomyelitis Laterality: right Osteomyelitis location: foot Osteomyelitis type: unspecified type Qualified Code(s): M86.9 - Osteomyelitis, unspecified
[2022-06-10] MEDS: PATIROMER CALCIUM SORBITEX 8.4 GM PACK PO SCH (11:02)
[2022-06-10] MEDS: GABAPENTIN 300 MG CAP PO SCH (15:14)
[2022-06-10 16:57] LABS: BUN Creatinine Ratio 6.7 (10-20); Calcium 8.3 mg/dl (8.5-10.1); Est GFR (African American) 5.2 ml/min; Est GFR (Non-African American) 4.5 ml/min; Potassium 5.8 mmol/L (3.5-5.1)
[2022-06-10] MEDS: amLODIPine BESYLATE 5 MG TAB PO SCH (21:05)
[2022-06-10] MEDS: ZOLPIDEM TARTRATE 10 MG TAB PO SCH (21:05)
[2022-06-10] MEDS ORDERED: ONDANSETRON INJ 2 MG/ML 2 ML VIAL IV PRN (22:17)
[2022-06-10] MEDS ORDERED: ONDANSETRON INJ 2 MG/ML 2 ML VIAL ONE (22:23)
[2022-06-10] MEDS: CEFEPIME 1,000 MG in SYRINGE 0 ML IV SCH (22:28)
[2022-06-11 07:07] LABS: Hematocrit (blood only) 31.1 % (42.0-52.0); Hemoglobin 9.8 g/dl (14.0-18.0); Mean Corpuscular Hemoglobin 31.1 pg (25.0-34.0); Mean Corpuscular Hgb Conc 31.5 g/dL (32.0-36.0); Mean Corpuscular Volume 98.7 fL (80.0-100.0); Mean Platelet Volume 10.9 fL (9.4-12.4); Platelet Count 158 K/uL (130-400); RDW Coefficient of Variation 14.4 % (11.5-14.5); RDW Standard Deviation 52.8 fL (36.4-46.3); Red Blood Count 3.15 M/uL (4.70-6.10); White Blood Count 7.75 K/ul (4.8-10.8)
[2022-06-11 07:33] LABS: BUN Creatinine Ratio 6.8 (10-20); Calcium 8.6 mg/dl (8.5-10.1); Creatinine Clr Calc Pharmacy 7.7 ml/min; Est GFR (Non-African American) 4.3 ml/min; Potassium 6.6 mmol/L (3.5-5.1)
--- NOTE | 2022-06-11 07:52 | Hospitalist Progress Note ---
Date of Service June 11, 2022 Assessment & Plan Admission and Anticipated Discharge Date Admission Date: June 07, 2022 Results & Data Results & Data ([facility]) Vital Signs (Past 12 Hours) Vital Signs Temp Pulse Resp BP Pulse Ox O2 Del Method 06/11/22 07:47 36.6 C 70 16 118/73 94 Room Air 06/10/22 21:03 36.7 C 90 15 118/80 95 Room Air Laboratory Results 06/11/22 06/11/22 06/11/22 Range/Units 06:30 06:30 06:30 WBC 7.75 (4.8-10.8) K/ul RBC 3.15 L (4.70-6.10) M/uL Hgb 9.8 L (14.0-18.0) g/dl Hct 31.1 L (42.0-52.0) % MCV 98.7 (80.0-100.0) fL MCH 31.1 (25.0-34.0) pg MCHC 31.5 L (32.0-36.0) g/dL RDW Std Deviation 52.8 H (36.4-46.3) fL RDW Coeff of Marcelino 14.4 (11.5-14.5) % Plt Count 158 (130-400) K/uL MPV 10.9 (9.4-12.4) fL Immature Gran % (Auto) % Neut % (Auto) % Lymph % (Auto) % [place] % (Auto) % Eos % (Auto) % Baso % (Auto) % Neut # (Auto) (1.40-6.50) K/uL Lymph # (Auto) (1.2-3.4) K/uL [place] # (Auto) (0.11-0.59) K/uL Eos # (Auto) (0-0.50) K/uL Baso # (Auto) (0-0.2) K/uL Immature Gran # (Auto) (0.01-0.20) K/uL Polychromasia Sodium 135 L (136-145) mmol/L Potassium 6.6 H* (3.5-5.1) mmol/L Chloride 105 (98-107) mmol/L Carbon Dioxide 19 L (21-32) mmol/L Anion Gap 11 (3-11) BUN 78 H (6-23) mg/dl Creatinine 11.47 H* D (0.6-1.4) mg/dl Est Cr Clr Drug Dosing 7.7 ml/min Est GFR ( Amer) 5.0 ml/min Est GFR (Non-Af Amer) 4.3 ml/min BUN/Creatinine Ratio 6.8 L (10-20) Glucose 89 (70-99(Fasting)) mg/dl Calcium 8.6 (8.5-10.1) mg/dl Phosphorus (2.5-4.9) mg/dl Magnesium (1.7-2.4) mg/dl Random Vancomycin 17.7 (10-20) mcg/ml 06/10/22 06/10/22 06/10/22 Range/Units 16:12 07:59 07:59 WBC (4.8-10.8) K/ul RBC (4.70-6.10) M/uL Hgb (14.0-18.0) g/dl Hct (42.0-52.0) % MCV (80.0-100.0) fL MCH (25.0-34.0) pg MCHC (32.0-36.0) g/dL RDW Std Deviation (36.4-46.3) fL RDW Coeff of Marcelino (11.5-14.5) % Plt Count (130-400) K/uL MPV (9.4-12.4) fL Immature Gran % (Auto) % Neut % (Auto) % Lymph % (Auto) % [place] % (Auto) % Eos % (Auto) % Baso % (Auto) % Neut # (Auto) (1.40-6.50) K/uL Lymph # (Auto) (1.2-3.4) K/uL [place] # (Auto) (0.11-0.59) K/uL Eos # (Auto) (0-0.50) K/uL Baso # (Auto) (0-0.2) K/uL Immature Gran # (Auto) (0.01-0.20) K/uL Polychromasia Sodium 135 L 136 (136-145) mmol/L Potassium 5.8 H 5.5 H (3.5-5.1) mmol/L Chloride 104 104 (98-107) mmol/L Carbon Dioxide 19 L 20 L (21-32) mmol/L Anion Gap 12 H 12 H (3-11) BUN 74 H 74 H (6-23) mg/dl Creatinine 11.07 H* D 10.71 H* D (0.6-1.4) mg/dl Est Cr Clr Drug Dosing 8.0 8.3 ml/min Est GFR ( Amer) 5.2 5.4 ml/min Est GFR (Non-Af Amer) 4.5 4.7 ml/min BUN/Creatinine Ratio 6.7 L 6.9 L (10-20) Glucose 101 H 83 (70-99(Fasting)) mg/dl Calcium 8.3 L 8.5 (8.5-10.1) mg/dl Phosphorus 7.9 H (2.5-4.9) mg/dl Magnesium 2.4 (1.7-2.4) mg/dl Random Vancomycin 18.0 (10-20) mcg/ml 06/10/22 Range/Units 07:59 WBC 7.54 (4.8-10.8) K/ul RBC 3.05 L (4.70-6.10) M/uL Hgb 9.7 L (14.0-18.0) g/dl Hct 29.6 L (42.0-52.0) % MCV 97.0 (80.0-100.0) fL MCH 31.8 (25.0-34.0) pg MCHC 32.8 (32.0-36.0) g/dL RDW Std Deviation 52.0 H (36.4-46.3) fL RDW Coeff of Marcelino 14.5 (11.5-14.5) % Plt Count 138 (130-400) K/uL MPV 10.7 (9.4-12.4) fL Immature Gran % (Auto) 5.6 % Neut % (Auto) 74.1 % Lymph % (Auto) 10.7 % [place] % (Auto) 8.0 % Eos % (Auto) 1.3 % Baso % (Auto) 0.3 % Neut # (Auto) 5.59 (1.40-6.50) K/uL Lymph # (Auto) 0.81 L (1.2-3.4) K/uL [place] # (Auto) 0.60 H (0.11-0.59) K/uL Eos # (Auto) 0.10 (0-0.50) K/uL Baso # (Auto) 0.02 (0-0.2) K/uL Immature Gran # (Auto) 0.42 H (0.01-0.20) K/uL Polychromasia 1+ Sodium (136-145) mmol/L Potassium (3.5-5.1) mmol/L Chloride (98-107) mmol/L Carbon Dioxide (21-32) mmol/L Anion Gap (3-11) BUN (6-23) mg/dl Creatinine (0.6-1.4) mg/dl Est Cr Clr Drug Dosing ml/min Est GFR ( Amer) ml/min Est GFR (Non-Af Amer) ml/min BUN/Creatinine Ratio (10-20) Glucose (70-99(Fasting)) mg/dl Calcium (8.5-10.1) mg/dl Phosphorus (2.5-4.9) mg/dl Magnesium (1.7-2.4) mg/dl Random Vancomycin (10-20) mcg/ml PG Care Time/CCT Total # of Minutes Spent Total Time Spent with Patient: Total time spent is greater than 50% in coordination of care (as documented) at patient's floor/unit and/or counseling patient: Coding Diagnoses
[2022-06-11] MEDS: FOLIC ACID 400 MCG TAB PO SCH (08:07)
[2022-06-11] MEDS: SEVELAMER HCL 800 MG TABLET PO SCH ×3 (08:07→18:18)
[2022-06-11] MEDS: HEPARIN SOD 5,000 UNIT/0.5 ML VIAL SQ SCH (08:08)
[2022-06-11] MEDS: LACTULOSE SYRUP 20 GM/30 ML UDC PO SCH (08:09)
[2022-06-11] MEDS: predniSONE 5 MG TAB PO SCH (08:16)
[2022-06-11] MEDS: THIAMINE HCL 100 MG TAB PO SCH (08:17)
[2022-06-11] MEDS: TAMSULOSIN HCL 0.4 MG CAP PO SCH (08:18)
[2022-06-11] MEDS: MoRPHine SULFATE CR 15 MG TABCR PO SCH (08:22)
--- NOTE | 2022-06-11 08:45 | Nephrology Progress Note ---
Date of Service June 11, 2022 Assessment & Plan (1) ESRD (end stage renal disease) on dialysis: Plan: * Worsening hyperkalemia despite Patiromer therapy discussed with patient this am. Risks of untreated hyperkalemia including arrhythmia reviewed in detail. Mr. Hernandez voiced understanding and consents to a 2 hour dialysis treatment this morning * Will provide HD today. HD RN notified and orders placed in EMR * Continue low K diet. Avoid YAHIR/ARB * Recommend continuing Patiromer 8.4 g po daily following discharge from hospital (2) Hyperkalemia: Plan: * HD today * Continue low K diet. Avoid YAHIR/ARB * Recommend continuing Patiromer 8.4 g po daily following discharge from hospital (3) Infection of amputation site of lower extremity: Plan: * s/p R foot debridement and evacuation of abscess by Dr. Goodwin 06/08/22 * Wound cultures + for MRSA sensitive to Clindamycin, Daptomycin, Erythromycin, Tetracycline and Vancomycin. Await ID recommendations regarding antibiotic therapy Admission and Anticipated Discharge Date Admission Date: June 07, 2022 Subjective Mr. Hernandez was evaluated in his hospital room this morning. He voiced no new medical concerns. He is anxious to return home soon Review of Systems Constitutional: no fever Eyes: no problem reported Ear, Nose, Mouth, Throat: no problem reported Respiratory: no dyspnea Cardiovascular: no chest pain Gastrointestinal: no abdominal pain Physical Exam Constitutional: not in distress Eyes: PERRL, conjunctivae normal, anicteric sclerae ENMT: external ear and nose normal, oropharynx normal Neck: trachea midline, no thyromegaly Respiratory: normal respiratory effort, lungs clear to auscultation Cardiovascular: RRR, no murmur, no edema Extremities: + AV fistula (L forearm AVG + bruit) Results & Data ([facility]) Vital Signs (Past 12 Hours) Vital Signs Temp Pulse Resp BP Pulse Ox O2 Del Method 06/11/22 07:47 36.6 C 70 16 118/73 94 Room Air 06/10/22 21:03 36.7 C 90 15 118/80 95 Room Air Laboratory Results Laboratory Tests 06/11/22 06/11/22 06:30 06:30 WBC 7.75 Hgb 9.8 L Hct 31.1 L Plt Count 158 Sodium 135 L Potassium 6.6 H* Chloride 105 Carbon Dioxide 19 L BUN 78 H Creatinine 11.47 H* D Glucose 89 Calcium 8.6 PG Care Time/CCT Total # of Minutes Spent Total Time Spent with Patient: Total time spent is greater than 50% in coordination of care (as documented) at patient's floor/unit and/or counseling patient: Coding Level of Care Code 65592 SUB INP/OBS CARE 3/50MIN Diagnoses ESRD (end stage renal disease) on dialysis N18.6; Z99.2 Hyperkalemia E87.5 Infection of amputation site of lower extremity T87.40
[2022-06-11] MEDS ORDERED: LIDOCAINE/PRILOCAINE 2.5% EA CRM EXT ONE (09:24)
[2022-06-11] MEDS ORDERED: SODIUM CHLORIDE 0.9% 1000ML 1,000 ML IV PRN (09:25)
[2022-06-11] MEDS ORDERED: HEPARIN SOD (PORCINE) 1000 UNIT/ML IV ONE (09:25)
[2022-06-11] MEDS ORDERED: EPOETIN ALFA 10,000 UNITS/ML VIAL IV ONE (09:25)
[2022-06-11] MEDS: FAMOTIDINE 20 MG in SYRINGE 3 ML IV SCH ×2 (09:35→09:50)
--- NOTE | 2022-06-11 09:52 | Infectious Disease Progress Nt ---
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 Patient reported foot was amputated in January 2021. He had been following at wound care clinic for a chronic wound at the site of his partial right foot amputation. He was previously on cefdinir for possible acute infection, but antibiotics were stopped several weeks ago by wound care clinic as they thought infection was adequately treated. Wound had been caused by too much pressure from his prosthesis and wound care clinic had made an adjustment to the prosthesis. He reported chronic drainage from the wound site. He denied any fevers, chills, shortness of breath, or GI complaints. In the ED, temperature was 36.9, heart rate 83, blood pressure 182/83, respiratory rate 18, O2 saturation 96% on room air. Admission labs significant for WBC 11.67, 88.2% neutrophils, 3.9% immature granulocytes. Right foot x-ray could not exclude osteomyelitis. Problem list #R foot anterior talus osteomyelitis s/p resection with residual OM on 06/08 # ESRD on HD, multiple missed visits # Noncompliance # Penicillin Allergy -MRI showed abnormal marrow signal and erosive/destructive change of the anterior talus consistent with site of osteomyelitis and multiloculated fluid surrounding the flexor hallucis longus tendon which could be due to chronic tenosynovitis but secondary infection was not possible to exclude -Patient was started on cefepime 1 g IV every 24 and vancomycin dosed by pharmacy on 06/05- held 06/07 -06/05 nasal MRSA screen positive. 06/05 blood cultures are no growth to date. -Prior cultures reviewed in EMR.No recent cultures. 10/13/2020 in the ankle wound culture grew MRSA susceptible to tetracycline. -WBC has improved to ~9. -06/08 OR: Right Foot excision/exostectomy osteomyelitis Talus, Tenosynovectomy Flexor Hallucis Longus Tendon, partial resection flexor hallucis longus tendon, excision/exostectomy osteomyelitis Calcaneus(Right) OR cultures, MRSA x 2 -Pt has agreed to stay for surgery after initial refusal Recommend: Patient with h/o poor compliance and many missed dialysis. It is very difficult to assess his true renal function and thus give him appropriate dosing of antibiotics. I would not recommend giving patient home IV antibiotics. Certainly he can have detrimental effects if antibiotics are not cleared appropriately. .IF he does come to Dialysis will recommend Daptomycin 8mg/kg with HD 3x/week. Would add po Doxycycline 100mg BID with food and avoid dairy products, Mg and other vitamins within 2 hours of medication. Plan for 6 weeks from surgery through 07/20/22 Alternatively if he fails this or is noncompliant, outpatient [facility] may be an option. Plan Recommend Daptomycin 8mg/kg IV with HD three times per week Check baseline CPK Weekly CBC w/diff, CMP, ESR, CRP, CPK these should be monitored by his PMD, ideally should establish care with outpatient ID physician. If we think there will be noncompliance would add Doxycycline 100mg po BID With Food as above END OF THERAPY 07/20/[address] Smiley regarding my recommendations. he will receive daptomycin today at HD inpatient Mayela Berger MD Infectious Diseases [facility], [facility] Connect Admission and Anticipated Discharge Date Admission Date: June 07, 2022 Subjective This patient recommendation is based on a telemedicine consult request which was completed asynchronously through chart review and information provided by the primary physician. The patient was not seen or examined today. The evaluation is consultative in nature and all patient care and treatment decisions can either be accepted or rejected by the patient's primary hospital-based treating physician using their own independent medical judgment for their patient. Time Spent Reviewing Chart: 21 - 30 minutes 24 hours/Over the weekend: No acute events Planning to receive HD today 06/08 Culture: MRSA x 2 species Results & Data ([facility]) Vital Signs (Past 12 Hours) Vital Signs Temp Pulse Resp BP Pulse Ox O2 Del Method 06/11/22 07:47 36.6 C 70 16 118/73 94 Room Air Laboratory Results Laboratory Results - last 48 hr 06/09/22 06/10/22 06/10/22 15:45 07:59 07:59 WBC 7.54 RBC 3.05 L Hgb 9.7 L Hct 29.6 L MCV 97.0 MCH 31.8 MCHC 32.8 RDW Std Deviation 52.0 H RDW Coeff of Marcelino 14.5 Plt Count 138 MPV 10.7 Immature Gran % (Auto) 5.6 Neut % (Auto) 74.1 Lymph % (Auto) 10.7 Mineral % (Auto) 8.0 Eos % (Auto) 1.3 Baso % (Auto) 0.3 Neut # (Auto) 5.59 Lymph # (Auto) 0.81 L Mineral # (Auto) 0.60 H Eos # (Auto) 0.10 Baso # (Auto) 0.02 Immature Gran # (Auto) 0.42 H Polychromasia 1+ Sodium 136 136 Potassium 5.5 H 5.5 H Chloride 103 104 Carbon Dioxide 22 20 L Anion Gap 11 12 H BUN 70 H 74 H Creatinine 10.21 H* 10.71 H* D Est Cr Clr Drug Dosing 8.7 8.3 Est GFR ( Amer) 5.8 5.4 Est GFR (Non-Af Amer) 5.0 4.7 BUN/Creatinine Ratio 6.9 L 6.9 L Glucose 122 H 83 Calcium 8.0 L 8.5 Phosphorus 7.9 H Magnesium 2.4 Random Vancomycin 06/10/22 06/10/22 06/11/22 07:59 16:12 06:30 WBC 7.75 RBC 3.15 L Hgb 9.8 L Hct 31.1 L MCV 98.7 MCH 31.1 MCHC 31.5 L RDW Std Deviation 52.8 H RDW Coeff of Marcelino 14.4 Plt Count 158 MPV 10.9 Immature Gran % (Auto) Neut % (Auto) Lymph % (Auto) Mineral % (Auto) Eos % (Auto) Baso % (Auto) Neut # (Auto) Lymph # (Auto) Mineral # (Auto) Eos # (Auto) Baso # (Auto) Immature Gran # (Auto) Polychromasia Sodium 135 L Potassium 5.8 H Chloride 104 Carbon Dioxide 19 L Anion Gap 12 H BUN 74 H Creatinine 11.07 H* D Est Cr Clr Drug Dosing 8.0 Est GFR ( Amer) 5.2 Est GFR (Non-Af Amer) 4.5 BUN/Creatinine Ratio 6.7 L Glucose 101 H Calcium 8.3 L Phosphorus Magnesium Random Vancomycin 18.0 06/11/22 06/11/22 06:30 06:30 WBC RBC Hgb Hct MCV MCH MCHC RDW Std Deviation RDW Coeff of Marcelino Plt Count MPV Immature Gran % (Auto) Neut % (Auto) Lymph % (Auto) Mineral % (Auto) Eos % (Auto) Baso % (Auto) Neut # (Auto) Lymph # (Auto) Mineral # (Auto) Eos # (Auto) Baso # (Auto) Immature Gran # (Auto) Polychromasia Sodium 135 L Potassium 6.6 H* Chloride 105 Carbon Dioxide 19 L Anion Gap 11 BUN 78 H Creatinine 11.47 H* D Est Cr Clr Drug Dosing 7.7 Est GFR ( Amer) 5.0 Est GFR (Non-Af Amer) 4.3 BUN/Creatinine Ratio 6.8 L Glucose 89 Calcium 8.6 Phosphorus Magnesium Random Vancomycin 17.7 Microbiology 06/08/22 Unknown Foot,Right Gram Stain - Final 06/08/22 Unknown Foot,Right Aerobic and Anaerobic Culture - Preliminary Staph aureus MRSA Staph aureus MRSA#2 06/05/22 18:45 Blood Aerobic Blood Culture - Final No growth in Aerobic bottle after 5 days. 06/05/22 18:45 Blood Anaerobic Blood Culture - Final 06/05/22 18:45 Blood Aerobic Blood Culture - Final No growth in Aerobic bottle after 5 days. 06/05/22 18:45 Blood Anaerobic Blood Culture - Final Diagnostic Findings Foot X-Ray 06/08/22 12:54 RIGHT FOOT 3 VIEWS CLINICAL HISTORY: Postoperative examination. FINDINGS: 3 views of the right foot are compared to study dated 06/05/2022 and correlated with MRI of the ankle dated 06/05/2022. The skeletal structures are heterogeneously osteopenic. No acute fracture is seen. There is postsurgical change from amputation of the forefoot and midfoot. There has been further amputation of the anterior talus as compared to previous with surrounding soft tissue calcifications. The anterior talus is heterogeneous. No erosive change is clearly seen. There is a large plantar heel spur. Degenerative change is noted at the tibiotalar articulation. Soft tissue edema is seen throughout the foot and ankle. Foci of soft tissue gas anteriorly are likely related to recent surgery. There is advanced atherosclerotic calcification of the regional arteries. IMPRESSION: 1. Postoperative change as above with evidence of further amputation of the anterior talus. 2. No acute fracture is seen. 3. The anterior talus is heterogeneous with no clear erosive disease identified. 4. Diffuse soft tissue edema as above. Soft tissue gas is likely on a postoperative basis Electronically signed by: Roddy Oscar M.D. 06/08/2022 2:04 PM (1) Osteomyelitis Laterality: right Osteomyelitis location: foot Osteomyelitis type: unspecified type Qualified Code(s): M86.9 - Osteomyelitis, unspecified
--- NOTE | 2022-06-11 10:21 | Discharge Summary ---
Date of Service June 11, 2022 Admission HPI Per Admitting Provider Sesar is a 56 year old male with a PMH significant for renal cell carcinoma S/P left nephrectomy ESRD on hemodialysis on Tuesdays, afib (No longer on anticoagulation), DM, HTN, CAD, ABLA, hyperlipidemia, chronic constipation, S/P previous left BKA and right partial metatarsal amputations, S/P amputation of Right 2-4 digits on 03/18/2020, RA currently on prednisone therapy, and BPH who presented to the [facility] ED on 06/05/22 due to concerns for infection at his partial right foot amputation site. In the ED the patient was found to be afebrile, hypertensive at 182/83, and stable on RA. Labs were remarkable for a CBC with WBC of 11.67 with a left shift of 10.30, stable Hgb at 11.0, stable platelets at 140, cr of 7.21, AG of 12 with bicarb of 28, calcium of 7.4. X-ray of the right foot amputation site was read as "Status post application with lucencies in the bones of the foot which are nonspecific, may represent demineralization however osteomyelitis cannot be entirely excluded. If there is clinical concern, MRI can be performed.". Prior to admission blood cultures were obtained and the patient was order one dose of vancomycin. At the time of the exam the patient was resting in bed in no acute distress. He states that he is followed by the wound care clinic for his known chronic wound at the site of his partial right foot amputation. He was previously on cefdinir for a possible acute infection of the site but these abx were stopped approximately 3 weeks ago by the wound care clinic as they thought the infection was adequately treated. The patient states that the wound, located on the distal aspect of his surgical site was caused by too much pressure from his prosthesis. The wound care clinic made an adjustment to his prosthesis so it put more pressure on his heel. He explains that he has chronic drainage from the wound site, which has been stable. Approximately one week ago the pain at his chronic wound site started to increased. It came to the point today, after dialysis that the pain became unbearable, causing him to come to the ED for evaluation. He denies recent fevers, chills, chest pain, SOB, abdominal pain, nausea, vomiting, diarrhea, dysuria, hematuria, melena, and recent trauma. He still makes urine and has not noticed a change in frequency or amount of urine produced daily. He is agreeable to come into the hospital for IV antibiotics and an MRI for further evaluation. He did explain that he has to pick his son up from school tomorrow at 2 pm and will not want to stay longer if not absolutely necessary. He wishes to be a Full Code. I had a discussion with the patient regarding why he was taken off of Eliquis as review of his med rec shows the last prescription for Eliquis was a 30 day supply ordered by his PCP (Dr. Brannon) in September of 2021. He states that he was told he no longer needed to be on anticoagulation and thought it was due to his easy bruising and bleeding. After review of Dr. Brannon's last note of 03/19/22 the patient first went into afib RVR during an ICU admission at [facility] in in September of 2021, it was also noted that he has a previous history of previous DVT and thrombotic event. He was advised by Cardiology and Vascular Surgery to "consider" anticoagulation at that time for reduction of his stroke risk. Please refer to Dr. Gaspar's attestation for any changes to the treatment plan. Admission Exam Per Admitting Provider Physical Exam: General:In no acute distress, stated age, well-nourished, chronically ill- appearing HEENT:Normocephalic, atraumatic, no scleral icterus, pupils around round, symmetrical, and reactive to light, moist mucus membranes, trachea midline, no thyromegaly Chest/Pulm:No respiratory distress, symmetrical chest expansion, clear breath sounds throughout Cardiac:RRR, systolic murmur noted Abdomen:Negative for ascites and bruising, normoactive bowel sounds, soft, non-tender to palpation throughout Musculoskeletal:Previous right 2-4 digit amputations are well healed as is his previous left BKA amputation site, the right partial foot amputation site is erythematous with pustulous drainage but no signs of tracking up the RLE at this time Extremities:Patient with AV fistula located on the left forearm with intact thrill, Skin:As described above Neuro:Alert and oriented to person, place, month, year, and president, no focal defects, no tremors noted Psych:No acute distress, calm and cooperative during the exam Principal Diagnosis R foot osteomyelitis Discharge Exam General: chronically ill appearing male sitting up in bed on the phone, NAD, alert and oriented to person/place/time HEENT: head normocephalic, atraumatic, mmm, trachea midline Resp: CTAB, no w/c, on room air CV: RRR, +systolic murmur, no significant edema, pulses palpable GI: +BS, LESS distended, tender at site of heparin SQ injection : no kaiser, urinal at bedside yellow urine present MSK/Neuro: RLE with dressing in place, c/d/i without shadowing, nontender to palpation, no streaking erythema, packing to be removed prior to discharge, calves nontender, compartments soft R hand w/ prior amputations to several digits prior s/p BKA on left well formed/no signs of infection, prosthesis in room Psych: AOx3, cooperative with care Discharge Data Allergies Allergy/AdvReac Type Severity Reaction Status Date / Time oxycodone Allergy Severe Swelling Verified 06/05/22 17:10 of throat and itchiness finasteride Allergy Intermediate Hives Verified 06/05/22 17:10 hydrocodone Allergy Intermediate Rash Verified 06/05/22 17:10 Penicillins Allergy Intermediate RASH, Verified 06/05/22 17:10 HIVES, ITCHING Consultations 06/05/22 17:56 ED Decision to Admit Stat 06/06/22 08:41 Consult Orthopedic Surgery Routine 06/06/22 09:16 Consult Nephrology Routine 06/06/22 18:02 Consult Infectious Diseases Routine Procedures Performed Operation Date: 06/08/22 09:05 Actual Procedures p Right Foot Incision Osteomyelitis Talus, Tenosynoectomy Flexor Hallucis Longus Tendon, Resection Osteomyelitis Calcaneus(Right) - Neo Goodwin DO s Debridement 3cm Foot Ulcer, Evacuation Abscess(Right) - Neo Goodwin DO Ordered Studies Foot X-Ray 06/05/22 17:11 XR foot RT min 3V routine CLINICAL HISTORY: stump pain TECHNIQUE: 3 views of the right foot were obtained. Comparison: Comparison is made to right ankle radiographs 10/12/2021 FINDINGS: Patient is status post right midfoot amputation. Lucencies are seen within the residual talus, nonspecific. IMPRESSION: Status post application with lucencies in the bones of the foot which are nonspecific, may represent demineralization however osteomyelitis cannot be entirely excluded. If there is clinical concern, MRI can be performed. ACT 112: Negative or not required by law. Electronically signed by: Deni Blum M.D. 06/05/2022 5:42 PM Ankle MRI 06/05/22 18:42 MR ankle RT wo con HISTORY: concern for R foot amputation site osteomyelitis. TECHNIQUE: Multiplanar multisequence MRI of the right ankle was performed without intravenous contrast according to standard departmental protocol. COMPARISON STUDY: Right foot radiograph 06/05/2022. FINDINGS: The patient is status post midfoot amputation. Heterogeneous marrow signal seen throughout the distal tibia, distal fibula, calcaneus, and residual talus consistent with bone infarcts. There is abnormal marrow signal with erosive changes involving the residual anterior talus which is highly suspicious for an osteomyelitis. This is best seen on coronal images 9 and measures approximately 2.6 cm. There is diffuse soft tissue edema within the ankle/hindfoot. No loculated fluid collections to suggest an abscess. Small effusions at the tibiotalar and subtalar joints. There is a multiloculated fluid surrounding the flexor hallucis longus tendon. IMPRESSION: 1. Status post midfoot amputation. 2. Abnormal marrow signal and erosive/destructive change at the anterior talus consistent with a site of osteomyelitis. 3. Multiloculated fluid surrounding the flexor hallucis longus tendon. This could be due to a chronic tenosynovitis. Secondary infection would be impossible to exclude by imaging. ACT 112: Negative or not required by law. Electronically signed by: Harish Espino M.D. 06/06/2022 7:[address] 06/07/22 16:03 CT SCAN OF THE BRAIN WITHOUT IV CONTRAST CLINICAL HISTORY: Intermittent confusion. Change in mental status. COMPARISON STUDY: No priors. TECHNIQUE: Unenhanced axial CT scan of the brain is performed from the vertex to the skull base. A dose lowering technique was utilized adhering to the principles of ALARA. CT DOSE: 638.56 mGycm FINDINGS: Brain parenchyma: There is age-related involutional change noting minimal microangiopathic disease. There is no hemorrhage, mass effect, or evidence of acute territorial ischemia by CT criteria. Montalvo-white matter differentiation is preserved. No extra-axial fluid collection is seen. Ventricles, sulci, cisterns: Prominent secondary to involutional change. Intracranial vasculature: There is atherosclerotic calcification of the cavernous carotid and vertebral arteries. Calvarium: Unremarkable. Sinuses and mastoids: The visualized paranasal sinuses are clear. The mastoid air cells are well pneumatized. Orbits: The bony orbits are grossly intact. IMPRESSION: There is no hemorrhage, mass effect, or evidence of acute territorial ischemia by CT criteria. ACT 112: Negative or not required by law. Electronically signed by: Roddy Oscar M.D. 06/07/2022 5:16 PM Chest X-Ray 06/07/22 16:11 XR chest 1V portable CLINICAL HISTORY: pre-op COMPARISON STUDY: Chest CT September 25, 2018. FINDINGS: Lung volumes are noted. A calcified granuloma within the left upper lobe is present. There is no pneumothorax or pleural effusion. Mild cardiomegaly is noted. Mediastinal contours are stable. There is pulmonary vascular congestion without overt pulmonary edema. No consolidation is present. IMPRESSION: Mild cardiomegaly. Pulmonary vascular congestion without overt pulmonary edema. ACT 112: Negative or not required by law. Electronically signed by: Ajay Montiel M.D. 06/07/2022 8:42 PM Foot X-Ray 06/08/22 12:54 RIGHT FOOT 3 VIEWS CLINICAL HISTORY: Postoperative examination. FINDINGS: 3 views of the right foot are compared to study dated 06/05/2022 and correlated with MRI of the ankle dated 06/05/2022. The skeletal structures are heterogeneously osteopenic. No acute fracture is seen. There is postsurgical change from amputation of the forefoot and midfoot. There has been further amputation of the anterior talus as compared to previous with surrounding soft tissue calcifications. The anterior talus is heterogeneous. No erosive change is clearly seen. There is a large plantar heel spur. Degenerative change is noted at the tibiotalar articulation. Soft tissue edema is seen throughout the foot and ankle. Foci of soft tissue gas anteriorly are likely related to recent surgery. There is advanced atherosclerotic calcification of the regional arteries. IMPRESSION: 1. Postoperative change as above with evidence of further amputation of the anterior talus. 2. No acute fracture is seen. 3. The anterior talus is heterogeneous with no clear erosive disease identified. 4. Diffuse soft tissue edema as above. Soft tissue gas is likely on a postoperative basis Electronically signed by: Roddy Oscar M.D. 06/08/2022 2:04 PM Hospital Course (1) Infection of amputation site of lower extremity: Recently on cefdinir x 3 weeks, stopped outpatient as told looked good by wound care w/ continued drainage/worsening pain to RLE amputation site, prior seen by Dr Goodwin Xray Status post application with lucencies in the bones of the foot which are nonspecific, may represent demineralization however osteomyelitis cannot be entirely excluded MRI obtained to eval for underlying AOM --> Abnormal marrow signal and erosive/destructive change at the anterior talus consistent with a site of osteomyelitis. Multiloculated fluid surrounding the flexor hallucis longus tendon. Orthopedics consulted, Dr Goodwin s/p the following on 06/08: * 1. Right foot excision/exostectomy osteomyelitis of the talus. * 2. Tenosynovectomy of the flexor hallucis longus tendon. * 3. Partial resection flexor hallucis longus tendon. * 4. Excision/exostectomy osteomyelitis of the calcaneus. * 5. Debridement 3 cm diameter x 0.4 cm depth foot ulcer. * 6. Evacuation abscess, dorsal and medial right foot. * EBL 200cc Abx: Vanco/Cefepime on admit, held while getting surgery w/ Dr Goodwin however had been therapeutic on Vancomycin CX from OR w/ MRSA D/c'd Cefepime, discussed w/ ID and planning Daptomycin IV at discharge x [address]. [address] (unable to get PICC). End date 07/20 Discussed w/ ID this morning and recs for Dapto at discharge, Doxy BID given compliance issues with HD. Given issues with HD, discussed with Dr Angel and pref for Dapto Q48h with home health, rx provided to CM. Orders for weekly CBC, CMP, ESR, CRP, CPK while on abx Dressing changed by Dr Goodwin 06/10, remainder of packing to be removed prior to discharge and supplies for dressing supplied NWB on RLE and given rx for walker and wheeled scooter per discussion with patient and Dr Goodwin for ambulation Blood cultures FINAL negative WBC wnl, afebrile. (2) ESRD (end stage renal disease) on dialysis: Currently gets HD once weekly on Tuesdays, had a full session prior to coming to the ED (misses frequently). Follows with Dr Quijano (initially w/ Dr Barreto for hx renal ca s/p nephrectomy) Nephrology on consult, HD for 2/24 for 2L, K was >5.7 Declined HD for 06/09 K 5.9 and veltessa increased to 16.8gm daily 06/10 K 6.6 on AM labs 06/11, patient was agreeable to HD and completed session To continue low K diet at discharge LISINOPRIL DISCONTINUED (BPs stable off such) Repeat labs while on abx and compliance with HD encouraged. Risks were reviewed on multiple occasions Home sevelamer and sodium bicarb resumed as rx by Dr Quijano and continued at d/c Regarding pain control, gabapentin 300mg daily resumed and has been effective. He has rx at home, renally dosed appropriately 300mg/max/daily F.u nephrology/HD at discharge, next session to be on if agreeable, typically just goes on Tuesdays. (3) Atrial fibrillation: Stable , examines in SR -- SR w/ PVCs on EKG NOT ON ELIQUIS since 09/2021, unsure exact reason but appears issues w/ bleeding --> messaged PCP and discussed w/ patient should have outpt f/u regarding ongoing need. Tx anemia w/ nephro in f/u with HD for Venofer, deferred in setting active infection (4) Anemia: hgb appears in 10-12 range, 11 on admit with ?lab error of 9.9 yesterday given 11 on AM labs B12/folate LOW -- replacement ordered and would continue at discharge iron panel 22, TIBC low/unsat low, trans % sat only 15 but ferritin elevation 1063 likely reactive given current infection hgb 10.4 due to acute blood loss from surgery w/ EBL 200cc --> repeat 9.7 --> 9.8 and getting HD prior to discharge outpt f/u for iron replacement w/ HD, deferred inpatient given ferritin elevation/infection Monitor CBC in f/u (5) Chronic pain: Continued home MS contin Dilaudid IV frequent dosing and he has not had to use since given gabapentin 300mg daily and has been helpful and can continue at d/c he has rx for gabapentin at home already (6) Chronic constipation: lactulose as needed, reported moving bowels regularly (7) BPH loc w urin obs/LUTS: Continued flomax UOP acceptable, had been clearing some vanco based on trough w/o HD of note, and IS DIALYSIS PATIENT (8) Psoriatic arthritis: Normally on prednisone 5mg PO BID Hold PO pred for now with current infection , NOT HAVING ANY HYPOTENSION (excep tion directly post op) ORDERED 1x dose hydrocortisone 50mg x1 NOW 06/08, resumed usual prednisone 5mg but increased to BID as taking at home (9) Hypertension: Stable Continued amlodipine -Patient is also on Lisinopril as prescribed by Nephrology -- held for AM given K/Cr and DISCONTINUED at discharge given hyperkalemia BP stable off lisinopril and pain controlled (10) B12 deficiency: checked due to anemia/borderline MCV --> B12 LOW at 142 -- IM replacement while inpatient and continued PO at d/c (11) Folate deficiency: checked due to anemia/borderline MCV --> Folate LOW 4.39, PO replacement ordered and continued PO at discharge Plan PT/OT rec rehab however patient declined, agreeable to home health/therapy -- CM arranging. Rx for walker as well as wheeled scooter provided (CM to get him walker prior to dc) ID consult -- continue Dapto IV at discharge, per nephro giving w/ home health and Q48H with monitoring of labs. Doxy PO BID as well given sensitivities if having issues w/ compliance or IV site as well HD prior to discharge for hyperkalemia, increased Veltessa and stressed low K diet/lisinopril discontinued and close f/u nephrology/dialysis at discharge Will need outpatient f/u Dr Goodwin for continued monitoring and f/u wound in [place] as patient already established Total Time Total Time Spent Total Time Spent (In Minutes): 70 Discharge Plan Discharge Items Patient Disposition: Home - Home Health Services Reason For Visit: CONCERN FOR RIGHT LE INFECTION Discharge Diagnosis: Osteomyelitis Goals: You have been hospitalized for an urgent problem which required surgery. During your stay at [facility], we have made an effort to correct the problem that brought you to the hospital while keeping you as comfortable as possible. Surgery and medications were used to bring your condition under control and your discharge instructions will include directions for any medications you should take after leaving the hospital. Please make sure to follow the advice of your surgeon regarding follow up with the surgeon and with your primary care provider. Activity: As commented below Activity Comment: non-weight bearing right lower extremity Non-emergency contact: Primary Care Provider, Surgeon and Shirt Presser Call non-emergency contact if: you have any medication questions, your symptoms worsen, your pain is concerning for you and you have a fever Follow-up/Referrals: Em Brannon DO [Primary Care Provider] - 06/21/22 9:20 am Melanie Quijano MD [Physician] - (Office will call patient with an appointment date and time) Neo Goodwin DO [Surgeon] - (Office will call patient with a 2 week follow up appointment date and time.) Diet: Dialysis Renal and Low Potassium (2gm) Addtl Attending Provider Instructions: You have been hospitalized for infection to the bone in your right foot. Dr Goodwin was consulted and took you to the OR to clean out abscess and infected bone and hopefully will be able to salvage but will need continued monitoring. You will need to be non-weight bearing to that extremity in the meantime. We have set up home health and therapy and will need continued wound care follow up. We have given you a walker as well as a wheeled scooter to assist with ambulation in the meantime. You should change the dressing daily and keep well padded. Supplies have been provided and the rest of the packing has been removed. Infectious disease was consulted and you will continue IV Daptomycin for 6 weeks given infection to the bone based on cultures which grew MRSA. Typically this is given with dialysis however given compliance issues/etc and ability to get to dialysis multiple times a week, this was discussed with Dr Angel and he is recommending we have home health administer this every 48 hours with home health and they will check labs while on this to ensure stability. In the meantime Dr Berger from infectious disease would like you to be on doxycycline 100mg by mouth twice daily as the cultures did show sensitivities to this as well and hopefully this will be more than sufficient to clear your infection. Pain control will be continued with your home OxyContin and you can continue the gabapentin you have at home 300mg daily given renal function. You underwent dialysis today and per Dr Angel should continue Veltessa 16.8gm daily to prevent issues with hyperkalemia. You underwent dialysis today for elevated levels and can continue next treatment on . Your lisinopril has been DISCONTINUED in the meantime to prevent worsening potassium levels. You were found to have low B12/folate levels and ordered replacement which has been continued at discharge and will help with neuropathy and anemia. You should follow up with dialysis for iron transfusions as needed. You will need follow up with Dr Goodwin in the next 1-2 weeks to monitor your status. Please follow up with primary care to discuss any need for ongoing eliquis use given history of afib in follow up with vascular surgery. Strongly recommend baby aspirin daily as able to tolerate in the meantime. Please return to the ER with any worsening pain/redness/drainage, fevers, any chest pain or shortness of breath or for any other symptoms concerning for you. It has been a pleasure being a part of the medical team providing for you while you have been in the hospital. Take care! Pending Studies at Discharge: No Stand-Alone Forms: My [facility] [employer], Smoking Cessation Medications and DC Order Prescriptions: New gabapentin 300 mg Capsule 300 mg PO DAILY@1500 Qty: 0 0RF folic acid 400 mcg Tablet 400 mcg PO QAM Qty: 30 0RF cyanocobalamin (vitamin B-12) 1,000 mcg capsule 1,000 mcg PO DAILY Qty: 30 0RF Veltassa 16.8 gram powder in packet 16.8 g PO DAILY Qty: 30 0RF doxycycline hyclate 100 mg capsule 100 mg PO BID 42 Days Qty: 84 0RF daptomycin 500 mg recon soln 669 mg IV Q48H 42 Days Qty: 10 0RF Rx Instructions: administer over 30 mins Continued lactulose 10 gram/15 mL solution 30 ml PO BID PRN (Reason: Constipation) Qty: 946 0RF (DME) Prosthetic supplies See Rx Instructions .Route .MEDSUPPLY Qty: 1 0RF Rx Instructions: Locking liner Spacer socks suspension sleeves amlodipine 5 mg tablet 5 mg PO HS Qty: 90 1RF prednisone 5 mg tablet 5 mg PO BID Qty: 180 1RF morphine [MS Contin] 30 mg tablet extended release 30 mg PO Q12H Qty: 60 0RF (DME) RT silicone partial foot prostehsis See Rx Instructions .Route .MEDSUPPLY Qty: 1 0RF Rx Instructions: As directed. functional level K3 tamsulosin 0.4 mg capsule 0.4 mg PO BID Qty: 180 3RF (DME) R hand prosthesis See Rx Instructions .Route .MEDSUPPLY Qty: 1 0RF Rx Instructions: As directed ondansetron HCl 4 mg tablet 4 mg PO Q8H PRN (Reason: nausea and vomiting) Qty: 40 0RF acetaminophen [Tylenol Extra Strength] 500 mg Tablet 1,000 mg PO TID PRN (Reason: Pain) clobetasol 0.05 % Cream 1 applic TOPICAL BID PRN (Reason: AFFECTED AREA NEEDED) zolpidem 10 mg tablet 10 mg PO HS Rx Instructions: TAKE 1 TABLET BY MOUTH EVERY DAY AT BEDTIME sevelamer carbonate 800 mg tablet 2,400 mg PO TID sodium bicarbonate 650 mg tablet 1,300 mg PO BID Discontinued lisinopril 5 mg tablet 5 mg PO DAILY Qty: 90 3RF Discharge Orders: Discharge Order (Routine); Ordered 06/11/22 Ordered By: Ly Smiley Admission Data Admit Date/Time: 06/07/22 10:09 Attending Provider: Jessica Estrada Admit Provider: Anai Gaspar Primary Care Provider: Em Brannon Other Providers: Mikey Mcmahon [facility] ; Anai Gaspar ; Neo Goodwin Kevin C. ; Odalis Barbosa ; Loi Llanos ; Kiki Yost ; Wagner Luna ; Carolyn Castañeda ; Mayela Berger ; Cristin Blake ; Johnson Black ; Kimberly Lopez Other Interventions: Discharge Summary Assessment (RN) Last Done: 06/11/22 14:38 Supervising Physician Co-Signing Physician Notes PA Supervision Note: I personally saw and examined the patient. I verified all chavarria points and agree with EVENS Smiley with the following exceptions and/or additions: S-patient seen during dialysis. States he is ready to go home. No concerns O- Vitals reviewed Gen: [AAOx3, NAD] HEENT: [anicteric sclerae, EOMI] CV: [RRR no mgr nl S1S2] Pulm: [CTAB no wcr] Ext: [Right distal lower extremity in dressing not removed A/Q-16-pdzv-old male here with osteomyelitis of calcaneus now s/p surgical debridement Stable for discharge home on IV antibiotics Coding Level of Care Code HOSP INP/OBS DISCH >30 MIN Diagnoses Infection of amputation site of lower extremity T87.40 ESRD (end stage renal disease) on dialysis N18.6; Z99.2 Atrial fibrillation I48.91 Anemia D64.9 Chronic pain G89.29 Chronic constipation K59.09 BPH loc w urin obs/LUTS N40.1 Psoriatic arthritis L40.50 Hypertension I10 B12 deficiency E53.8 Folate deficiency E53.8
[2022-06-11] MEDS: PATIROMER CALCIUM SORBITEX 8.4 GM PACK PO SCH (11:12)
--- NOTE | 2022-06-11 12:41 | Electrocardiogram Report ---
Test Reason : Blood Pressure : / mmHG Vent. Rate : 055 BPM Atrial Rate : 055 BPM P-R Int : 148 ms QRS Dur : 082 ms QT Int : 408 ms P-R-T Axes : -21 032 058 degrees QTc Int : [address] elevation, consider early repolarization, pericarditis, or injury Borderline ECG When compared with ECG of 06-JUN-2022 00:34, Premature supraventricular complexes are no longer Present Confirmed by Harshad Vences ([id number]) on 06/11/2022 12:41:36 PM Referred By: REFERRED SELF Confirmed By:Harshad Vences
[2022-06-11] MEDS ORDERED: DAPTOmycin 625 MG in SYRINGE 0 ML IV ONE (16:00)
[2022-06-11] MEDS: GABAPENTIN 300 MG CAP PO SCH (18:21)
[2022-06-13] MEDS ORDERED: DAPTOmycin 625 MG in SYRINGE 0 ML IV SCH (16:00)
== END 2022-06-11 18:45 | disposition home health service (06) | DRG 463 ==
LOC: 3N 14:26 → ED 14:26 → SUATTDRO 18:27 → 3N 20:45 → SUATTDRO 06-07 10:09

== ENCOUNTER 2022-06-17 09:47 | Observation (INO) ==
--- NOTE | 2022-06-17 10:07 | Emergency Department Note ---
Impression & Plan Status post PICC central line placement ED Provider Note NAME: DAMIEN LYN AGE: 56 SEX: M : 1965 ARRIVES VIA: Walk-In INFORMANT: Patient ED PROVIDER(S): Genaro Bernal DO CHIEF COMPLAINT: PICC line placement HPI: Patient is a 56-year-old male who was seen and evaluated here/yesterday and had his PICC line removed and was referred to come back in today for repeat ultrasound to assess for new PICC/midline. He denies all other complaints. He is dialysis dependent. He notes he normally only goes once a week and sometimes goes once every other week. He denies any headache or change in vision. No chest pain or shortness of breath. No belly pain, nausea, vomiting, or diarrhea. PAST MEDICAL HISTORY:See Below PAST SURGICAL HISTORY:See Below FAMILY HISTORY:See Below SOCIAL HISTORY:See Below HOME MEDICATIONS:See Below ALLERGIES:See Below VITALS:See Below PHYSICAL EXAMINATION: GENERAL: Sitting up in bed, alert, well appearing, well nourished, no distress, non-toxic EYE EXAM: normal conjunctiva. OROPHARYNX:mucous membranes are moist LUNGS: Clear to auscultation. Normal chest wall mechanics HEART: no murmurs, S1 normal and S2 normal ABDOMEN: abdomen soft, non-tender, normo-active bowel sounds, no masses, no rebound or guarding. UPPER EXTREMITIES: upper extremities are grossly normal. LOWER EXTREMITIES: No pitting edema. NEURO EXAM: Normal sensorium, cranial nerves II-XII grossly intact, normal speech, no gross weakness of arms, no gross weakness of legs. MEDICAL DECISION MAKING: Patient is a 56-year-old male who presents the ER for above-stated complaint. Did consult IV team who present at bedside. On bedside ultrasound performed at bedside patient has a visible clot per my interpretation. Based on this blood work was obtained as well as a peripheral IV as there is no other mid or PICC line ability per IV team. Formal ultrasound confirms 2 superficial clots. Will defer to hospitalist for further management as these are superficial and based on recent admission there was some question whether he should be on a blood thinner or not based on previous clots and vascular issues. Not a great candidate NOAC in light of dialysis. CBC with a hemoglobin of 8.5 slightly down from previous and a white count of 10.9. BMP with a sodium of 130, potassium 5.7, CO2 of 13 and a gap at 19 with a creatinine of 18. LFTs bilirubin and troponin was unremarkable. Discussed with nephrology Dr. Youngblood recommended admission and dialysis tomorrow. Patient was agreeable. Discussed with Dr. Jc from ICU in regards to ICU versus vascular for additional access for IV Dapto every other day as he needs an additional several weeks of this. They were agreeable to evaluating the patient tomorrow following another evaluation by IV team. Following this discussed with the hospitalist Dr. Mendez for further evaluation management and treatment. Triage Nursing notes reviewed. Limited review of prior medical records performed Vital Signs: reviewed and remarkable for no significant abnormalities Differential diagnosis: Cellulitis, abscess, MRSA infection, DVT, necrotizing fasciitis, dermatitis, drug eruption, allergic reaction, as well as other pathologies. ER treatment provided: See below Diagnostics interpreted by me include EKG and cardiac monitoring as listed below: -ECG: Sinus rhythm rate of 63 Normal axis No PVCs QTc 440 Slight elevation in the inferior leads -Laboratory studies:Interpreted by me as stated above in MDM and shown below. Imaging studies: Xrays: As interpreted by me:none CTs show: none Consultation(s): D/w IV team, and Dr. Stovall as well as nephrology. Nephrology recommends admission for dialysis tomorrow. Patient was agreeable. Discussed with Tori HORNER for further evaluation treatment and management. Procedures:none Critical Care: None Past Med/Surg History Medical History (Updated 06/16/22 @ 10:50 by Genaro Bernal DO) Atrial fibrillation AV fistula LEFT ARM Avascular necrosis of bones of both hips Chronic pain Diabetes mellitus MONITORING, NO MEDICINE TO TREAT. 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 GETA. Grade 1 sujey. Escobar 2. 8.0 ETT. No issues. History of incisional hernia repair History of nephrectomy, left (2015) Due to Renal Cell Cancer Hx of abdominal surgery PERITONEAL CATHETER INSERTION + REVISION Hx of umbilical hernia repair (02/2019) S/P arteriovenous (AV) fistula creation S/P arteriovenous (AV) fistula repair MULTIPLE S/P excisional debridement 06/08/22 Dr. Neo Goodwin at [facility]- Right foot excision/exostectomy osteomyelitis of the talus, Tenosynovectomy of the flexor hallucis longus tendon, Partial resection flexor hallucis longus tendon, Excision/exostectomy osteomyelitis of the calcaneus, Debridement 3 cm diameter x 0.4 cm depth foot ulcer, Evacuation abscess, dorsal and medial right foot. 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) 2nd toe, d/t embolism Status post insertion of hemodialysis catheter +MULTIPLE REVISIONS Family History Brother Liver cirrhosis secondary to ALBA Family history of diabetes mellitus Father Brain tumor Coronary heart disease Hypertension Family history of diabetes mellitus Myocardial infarction Mother Liver cancer Hypertension Family history of diabetes mellitus Breast cancer Grandmother (Maternal) Stroke Sister Family history of diabetes mellitus Ovarian cancer x2 Grandfather (Maternal) Family hx of colon cancer Colorectal cancer Prostate cancer Grandfather (Paternal) Prostate cancer Social History Smoking Status: Never smoker Second Hand Exposure: No; Hx Alcohol Use: No Hx Substance Use: No Preferred Language: Lithuanian Communication Ability: Effective Visual Impairment: No Limitations Hearing Ability: Normal 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 Required: No Beliefs That Will Affect Care: None marital status: Current Living Situation: Alone current occupational status: disabled 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, 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, 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 How many Children do You have: 2 other: lives in [place] Feels Safe at Home: Yes Childhood Exposure to Second-Hand Smoke: Yes Diet Comment: regular caffeine: No during the past year weight has: remained stable Dental Care, Regularly: Yes Physical Activity Frequency: 1-2 Times per Week Physical Activity Frequency Comment: walking Seatbelt Use: always Sunscreen Use: No Assistive Devices: Prosthesis and Wheelchair Allergies Allergies Allergy/AdvReac Type Severity Reaction Status Date / Time oxycodone Allergy Severe Swelling Verified 06/17/22 12:52 of throat and itchiness finasteride Allergy Intermediate Hives Verified 06/17/22 12:52 hydrocodone Allergy Intermediate Rash Verified 06/17/22 12:52 Penicillins Allergy Intermediate RASH, Verified 06/17/22 12:52 HIVES, ITCHING Home Meds Home Medications Medication Instructions Recorded Confirmed acetaminophen 500 mg tablet 1,000 mg PO TID PRN Pain 08/12/18 06/17/22 (Tylenol Extra Strength) clobetasol 0.05 % topical cream 1 applic topical BID PRN AFFECTED 06/05/22 06/17/22 AREA NEEDED zolpidem 10 mg tablet 10 mg PO HS 06/05/22 06/17/22 sevelamer carbonate 800 mg tablet 2,400 mg PO TID 06/09/22 06/17/22 sodium bicarbonate 650 mg tablet 1,300 mg PO BID 06/09/22 06/17/22 Previous Rx's Medication Instructions Recorded lactulose 10 gram/15 mL oral 30 ml PO BID PRN Constipation #946 08/10/20 solution mL Prosthetic supplies #1 ea 12/01/20 RT silicone partial foot prostehsis #1 ea 07/01/21 R hand prosthesis #1 ea 10/10/21 amlodipine 5 mg tablet 5 mg PO HS #90 tabs 02/06/22 tamsulosin 0.4 mg capsule 0.4 mg PO BID #180 caps 02/15/22 ondansetron HCl 4 mg tablet 4 mg PO Q8H PRN nausea and 03/19/22 vomiting #40 tabs prednisone 5 mg tablet 5 mg PO BID #180 tabs 05/09/22 morphine 30 mg tablet,extended 30 mg PO Q12H #60 tabs 05/31/22 release (MS Contin) cyanocobalamin (vitamin B-12) 1,000 mcg PO DAILY #30 caps 06/11/22 1,000 mcg capsule daptomycin 500 mg intravenous 669 mg IV Q48H 6 weeks #10 ea 06/11/22 solution doxycycline hyclate 100 mg capsule 100 mg PO BID 6 weeks #84 caps 06/11/22 folic acid 400 mcg tablet 400 mcg PO QAM #30 tabs 06/11/22 gabapentin 300 mg capsule 300 mg PO DAILY@1500 #0 caps 06/11/22 patiromer calcium sorbitex 16.8 16.8 g PO DAILY #30 ea 06/11/22 gram oral powder packet (Veltassa) Protective boot, R foot #1 ea 06/13/22 Results & Data (ED) Vital Signs Vital Signs - 24 hr 06/17/22 09:50 06/17/22 11:02 06/17/22 11:06 Temperature 36.7 C Temperature Source Temporal Artery Scan Pulse Rate 84 67 Pulse Rate [Apical] 67 Pulse Rhythm [Apical] Regular Respiratory Rate 14 15 15 Respiratory Effort / Characteristics Non-Labored Spontaneous Respiratory Depth Normal Respiratory Pattern Regular Blood Pressure 102/49 L Blood Pressure [Right Arm] 86/52 L Blood Pressure Mean 66 Blood Pressure Mean [Right Arm] 63 Blood Pressure Position [Right Arm] Pulse Oximetry 97 94 97 Oxygen Delivery Method Room Air Room Air Room Air Sepsis New/Unexplained Change in Mental Status No Sepsis Action Taken by Nursing No Action Required 06/17/22 11:07 Temperature Temperature Source Pulse Rate Pulse Rate [Apical] Pulse Rhythm [Apical] Respiratory Rate Respiratory Effort / Characteristics Respiratory Depth Respiratory Pattern Blood Pressure Blood Pressure [Right Arm] 120/60 Blood Pressure Mean Blood Pressure Mean [Right Arm] 80 Blood Pressure Position [Right Arm] Semi-fowlers Pulse Oximetry Oxygen Delivery Method Sepsis New/Unexplained Change in Mental Status Sepsis Action Taken by Nursing Laboratory Data 06/17/22 10:55 06/17/22 10:55 Lab Results 06/17/22 06/17/22 06/17/22 Range/Units 10:55 10:55 10:55 WBC 10.91 H (4.8-10.8) K/ul RBC 2.74 L (4.70-6.10) M/uL Hgb 8.5 L (14.0-18.0) g/dl Hct 26.4 L (42.0-52.0) % MCV 96.4 (80.0-100.0) fL MCH 31.0 (25.0-34.0) pg MCHC 32.2 (32.0-36.0) g/dL RDW Std Deviation 52.6 H (36.4-46.3) fL RDW Coeff of Marcelino 14.9 H (11.5-14.5) % Plt Count 191 (130-400) K/uL MPV 10.6 (9.4-12.4) fL Immature Gran % (Auto) 8.5 % Neut % (Auto) 83.2 % Lymph % (Auto) 4.0 % [place] % (Auto) 3.6 % Eos % (Auto) 0.3 % Baso % (Auto) 0.4 % Neut # (Auto) 9.08 H (1.40-6.50) K/uL Lymph # (Auto) 0.44 L (1.2-3.4) K/uL [place] # (Auto) 0.39 (0.11-0.59) K/uL Eos # (Auto) 0.03 (0-0.50) K/uL Baso # (Auto) 0.04 (0-0.2) K/uL Immature Gran # (Auto) 0.93 H (0.01-0.20) K/uL Absolute Nucleated RBC 0.02 (0-0.12) K/uL Nucleated RBC % (auto) 0.2 % PT 10.9 (9.0-12.0) Seconds INR 1.0 (0.9-1.1) Sodium 130 L (136-145) mmol/L Potassium 5.7 H (3.5-5.1) mmol/L Chloride 98 (98-107) mmol/L Carbon Dioxide 13 L (21-32) mmol/L Anion Gap 19 H (3-11) BUN 125 H (6-23) mg/dl Creatinine 17.48 H* (0.6-1.4) mg/dl Est Cr Clr Drug Dosing 5.1 ml/min Est GFR ( Amer) 3.0 ml/min Est GFR (Non-Af Amer) 2.6 ml/min BUN/Creatinine Ratio 7.2 L (10-20) Glucose 76 (70-99(Fasting)) mg/dl Calcium 7.5 L (8.5-10.1) mg/dl Total Bilirubin 0.5 (0.2-1.0) mg/dl AST 15 (13-39) U/L ALT 13 (7-52) U/L Alkaline Phosphatase 55 (34-104) U/L Troponin I High Sens 15.0 (0-20) pg/ml Total Protein 6.5 (6.0-8.3) gm/dl Albumin 3.7 (3.4-5.0) gm/dl Globulin 2.8 (2.5-4.0) gm/dl Albumin/Globulin Ratio 1.3 (0.9-2) SARS-CoV-2, RNA, NAAT (NEGATIVE) 06/17/22 Range/Units 12:45 WBC (4.8-10.8) K/ul RBC (4.70-6.10) M/uL Hgb (14.0-18.0) g/dl Hct (42.0-52.0) % MCV (80.0-100.0) fL MCH (25.0-34.0) pg MCHC (32.0-36.0) g/dL RDW Std Deviation (36.4-46.3) fL RDW Coeff of Marcelino (11.5-14.5) % Plt Count (130-400) K/uL MPV (9.4-12.4) fL Immature Gran % (Auto) % Neut % (Auto) % Lymph % (Auto) % [place] % (Auto) % Eos % (Auto) % Baso % (Auto) % Neut # (Auto) (1.40-6.50) K/uL Lymph # (Auto) (1.2-3.4) K/uL [place] # (Auto) (0.11-0.59) K/uL Eos # (Auto) (0-0.50) K/uL Baso # (Auto) (0-0.2) K/uL Immature Gran # (Auto) (0.01-0.20) K/uL Absolute Nucleated RBC (0-0.12) K/uL Nucleated RBC % (auto) % PT (9.0-12.0) Seconds INR (0.9-1.1) Sodium (136-145) mmol/L Potassium (3.5-5.1) mmol/L Chloride (98-107) mmol/L Carbon Dioxide (21-32) mmol/L Anion Gap (3-11) BUN (6-23) mg/dl Creatinine (0.6-1.4) mg/dl Est Cr Clr Drug Dosing ml/min Est GFR ( Amer) ml/min Est GFR (Non-Af Amer) ml/min BUN/Creatinine Ratio (10-20) Glucose (70-99(Fasting)) mg/dl Calcium (8.5-10.1) mg/dl Total Bilirubin (0.2-1.0) mg/dl AST (13-39) U/L ALT (7-52) U/L Alkaline Phosphatase (34-104) U/L Troponin I High Sens (0-20) pg/ml Total Protein (6.0-8.3) gm/dl Albumin (3.4-5.0) gm/dl Globulin (2.5-4.0) gm/dl Albumin/Globulin Ratio (0.9-2) SARS-CoV-2, RNA, NAAT NEGATIVE (NEGATIVE) Imaging Data Radiologist's Impression: Venous Doppler Study 06/17/22 10:27 US venous doppler UE RT HISTORY: 56 years-old Male dvt acute pain and swelling of the right upper extremity COMPARISON: None TECHNIQUE: Multiple real-time sonographic images of the right upper extremity deep venous structures were obtained assessing grayscale appearance, color and spectral flow FINDINGS: Nonocclusive thrombus is noted within the basilic vein extending proximally to the midportion of the vessel for a length of less than 5 cm. 1.9 cm superficial thrombus is noted within a superficial vein of the proximal to mid arm which appears to be the cephalic vein. No deep venous thrombus identified. IMPRESSION: 1. No DVT identified. 2. Superficial venous thrombus of the right upper extremity. ACT 112: Negative or not required by law. The above report was generated using voice recognition software. It may contain grammatical, syntax or spelling errors. Electronically signed by: Matt Steele M.D. 06/17/2022 12:00 PM Discharge Plan Visit Data Chief Complaint: Line Placement Stated Complaint: LINE IN ARM ED Provider: Genaro Bernal Discharge Problem: Status post PICC central line placement Discharge Instructions Maria Alejandra/Other Patient Handouts: ED PICC Line Care Forms Stand Alone Forms: My [employer] Prescriptions Prescriptions: No Action lactulose 10 gram/15 mL solution 30 ml PO BID PRN (Reason: Constipation) Qty: 946 0RF (DME) Prosthetic supplies See Rx Instructions .Route .MEDSUPPLY Qty: 1 0RF Rx Instructions: Locking liner Spacer socks suspension sleeves amlodipine 5 mg tablet 5 mg PO HS Qty: 90 1RF prednisone 5 mg tablet 5 mg PO BID Qty: 180 1RF morphine [MS Contin] 30 mg tablet extended release 30 mg PO Q12H Qty: 60 0RF (DME) Protective boot, R foot See Rx Instructions .Route .MEDSUPPLY Qty: 1 0RF Rx Instructions: As directed (DME) RT silicone partial foot prostehsis See Rx Instructions .Route .MEDSUPPLY Qty: 1 0RF Rx Instructions: As directed. functional level K3 tamsulosin 0.4 mg capsule 0.4 mg PO BID Qty: 180 3RF (DME) R hand prosthesis See Rx Instructions .Route .MEDSUPPLY Qty: 1 0RF Rx Instructions: As directed ondansetron HCl 4 mg tablet 4 mg PO Q8H PRN (Reason: nausea and vomiting) Qty: 40 0RF acetaminophen [Tylenol Extra Strength] 500 mg Tablet 1,000 mg PO TID PRN (Reason: Pain) clobetasol 0.05 % Cream 1 applic TOPICAL BID PRN (Reason: AFFECTED AREA NEEDED) zolpidem 10 mg tablet 10 mg PO HS Rx Instructions: TAKE 1 TABLET BY MOUTH EVERY DAY AT BEDTIME sevelamer carbonate 800 mg tablet 2,400 mg PO TID sodium bicarbonate 650 mg tablet 1,300 mg PO BID gabapentin 300 mg Capsule 300 mg PO DAILY@1500 Qty: 0 0RF folic acid 400 mcg Tablet 400 mcg PO QAM Qty: 30 0RF cyanocobalamin (vitamin B-12) 1,000 mcg capsule 1,000 mcg PO DAILY Qty: 30 0RF Veltassa 16.8 gram powder in packet 16.8 g PO DAILY Qty: 30 0RF doxycycline hyclate 100 mg capsule 100 mg PO BID 42 Days Qty: 84 0RF daptomycin 500 mg recon soln 669 mg IV Q48H 42 Days Qty: 10 0RF Rx Instructions: administer over 30 mins Referrals Referrals: Em Brannon, [Primary Care Provider] -
[2022-06-17 11:08] LABS: Hematocrit (blood only) 26.4 % (42.0-52.0); Hemoglobin 8.5 g/dl (14.0-18.0); Mean Corpuscular Hgb Conc 32.2 g/dL (32.0-36.0); Mean Corpuscular Volume 96.4 fL (80.0-100.0); Mean Platelet Volume 10.6 fL (9.4-12.4); Nucleated RBC # (auto) 0.02 K/uL (0-0.12); Nucleated RBC % (auto) 0.2 %; Platelet Count 191 K/uL (130-400); RDW Coefficient of Variation 14.9 % (11.5-14.5); RDW Standard Deviation 52.6 fL (36.4-46.3); Red Blood Count 2.74 M/uL (4.70-6.10); White Blood Count 10.91 K/ul (4.8-10.8)
[2022-06-17 11:27] LABS: Basophils # (auto) 0.04 K/uL (0-0.2); Basophils % (auto) 0.4 %; Eosinophils # (auto) 0.03 K/uL (0-0.50); Eosinophils % (auto) 0.3 %; Immature Granulocytes # (auto) 0.93 K/uL (0.01-0.20); Immature Granulocytes % (auto) 8.5 %; Lymphocytes # (auto) 0.44 K/uL (1.2-3.4); Monocytes # (auto) 0.39 K/uL (0.11-0.59); Monocytes % (auto) 3.6 %; Neutrophils # (auto) 9.08 K/uL (1.40-6.50); Neutrophils % (auto) 83.2 %
[2022-06-17 11:30] LABS: Albumin Globulin Ratio 1.3 (0.9-2); Albumin Level 3.7 gm/dl (3.4-5.0); BUN Creatinine Ratio 7.2 (10-20); Bilirubin,Total 0.5 mg/dl (0.2-1.0); Calcium 7.5 mg/dl (8.5-10.1); Creatinine Clr Calc Pharmacy 5.1 ml/min; Est GFR (Non-African American) 2.6 ml/min; Globulin 2.8 gm/dl (2.5-4.0); Potassium 5.7 mmol/L (3.5-5.1); Total Protein 6.5 gm/dl (6.0-8.3)
[2022-06-17 11:37] LABS: Prothrombin Time 10.9 Seconds (9.0-12.0)
--- NOTE | 2022-06-17 12:01 | Ultrasound Report ---
US venous doppler UE RT HISTORY: 56 years-old Male dvt acute pain and swelling of the right upper extremity COMPARISON: None TECHNIQUE: Multiple real-time sonographic images of the right upper extremity deep venous structures were obtained assessing grayscale appearance, color and spectral flow FINDINGS: Nonocclusive thrombus is noted within the basilic vein extending proximally to the midportion of the vessel for a length of less than 5 cm. 1.9 cm superficial thrombus is noted within a superficial vein of the proximal to mid arm which appears to be the cephalic vein. No deep venous thrombus identified . IMPRESSION: 1. No DVT identified. 2. Superficial venous thrombus of the right upper extremity. ACT 112: Negative or not required by law. The above report was generated using voice recognition software. It may contain grammatical, syntax o r spelling errors. Electronically signed by: Matt Steele M.D. 06/17/2022 12:00 PM
--- NOTE | 2022-06-17 13:37 | History & Physical Report ---
Date of Service June 17, 2022 Assessment & Plan (1) Osteomyelitis: Plan: Osteo of R foot s/p I&D and debridement by Dr. Goodwin on 06/08 - Seen by ID during last hospitalization - recommended for Dapto 8mg/kg after HD 3x per week in addition to Doxycycline 100mg BID through 07/20 - Patient is noncompliant with HD 3x per week, goes only ONCE per week - ID (Dr. Berger) if treatment with Daptomycin is not feasible consider Dalvance - Will dose with Daptomycin 675mg IV x1 now, defer further doses as will attempt to arrange Dalvance for patient, will need to facilitate this with ID and MTU - Continue Doxycycline 100mg BID (2) Occluded PICC line: Plan: - PICC line removed on 06/16 in ER - Now with superficial thrombophlebitis - warm compresses - Ideally, would not place a central line in this patient, would alternatively consider Dalvance as outlined above - Hold off on IV team consult, vascular surgery or ICU consult for central line placement (3) ESRD (end stage renal disease) on dialysis: Plan: - Overdue for dialysis, reviewed chemistry - Case d/w Dr. Quijano who has been consulted to arrange for HD on 06/18 - Dialysis renal diet ordered - Hyperkalemic at 5.7, Veltassa continued (4) Hypertension: Plan: - Normotensive, continue Amlodipine (5) Diabetes mellitus: Plan: - Does not take an medications for this at home - ACHS accuchecks and will add coverage for BSG >180 - Carb consistent + renal diet Plan Repeat labs ordered for tomorrow morning including cbc, bmp, mag, and phos. High medical decision making complexity. Above plan of care has been d/w Dr. Rousseau who will also see and evaluate this patient. Further orders will be implemented as warranted. History of Present Illness Chief Complaint: Line placement Primary Care Provider: DO Sesar Fernando Mary is a 56 yo male with a pmhx of renal cell ca s/p left nephrectomy, ESRD on HD weekly (Tuesdays), and medical noncompliance who was recently hospitalized 06/05-06/11 for R foot osteomyelitis. He was discharged home on course of Doxycycline and IV Daptomycin q48h and was to complete on 07/20/22. Patient was doing well following discharge until yesterday when he presented to the ER c/o leaking from his PICC line. The line was removed and he was told to be re-evaluated for new picc line placement. In the ED, pt had ultrasound of his RUE and noted to have a superficial thrombophlebitis. ER team consulted with roofing technician for central line placement who stated they would evaluate patient tomorrow. He is also overdue for dialysis with a creatinine of 17 and BUN of 125, potassium of 5.7. The ER was able to place a peripheral IV. He is due for a dose of Daptomycin today but would prefer not to stay overnight in the hospital as today is his today to see his son according to his custody arrangement. How ever, since he missed picking him up at the schedule time, he is reluctantly agreeable to stay overnight one night. He is agreeable to receiving dialysis tomorrow. Dr. Quijano was made aware. Hospitalists have been contacted for admission. Allergies Allergy/AdvReac Type Severity Reaction Status Date / Time oxycodone Allergy Severe Swelling Verified 06/18/22 14:08 of throat and itchiness finasteride Allergy Intermediate Hives Verified 06/18/22 14:08 hydrocodone Allergy Intermediate Rash Verified 06/18/22 14:08 Penicillins Allergy Intermediate RASH, Verified 06/18/22 14:08 HIVES, ITCHING Home Medications Medication Instructions Recorded Confirmed Type acetaminophen 500 mg tablet 1,000 mg PO TID PRN Pain 08/12/18 06/18/22 History (Tylenol Extra Strength) lactulose 10 gram/15 mL oral 30 ml PO BID PRN Constipation #946 08/10/20 06/18/22 Rx solution mL Prosthetic supplies #1 ea 12/01/20 06/18/22 Rx RT silicone partial foot prostehsis #1 ea 07/01/21 06/18/22 Rx R hand prosthesis #1 ea 10/10/21 06/18/22 Rx amlodipine 5 mg tablet 5 mg PO HS #90 tabs 02/06/22 06/18/22 Rx tamsulosin 0.4 mg capsule 0.4 mg PO BID #180 caps 02/15/22 06/18/22 Rx ondansetron HCl 4 mg tablet 4 mg PO Q8H PRN nausea and 03/19/22 06/18/22 Rx vomiting #40 tabs prednisone 5 mg tablet 5 mg PO BID #180 tabs 05/09/22 06/18/22 Rx morphine 30 mg tablet,extended 30 mg PO Q12H #60 tabs 05/31/22 06/18/22 Rx release (MS Contin) clobetasol 0.05 % topical cream 1 applic topical BID PRN AFFECTED 06/05/22 06/18/22 History AREA NEEDED zolpidem 10 mg tablet 10 mg PO HS 06/05/22 06/18/22 History sevelamer carbonate 800 mg tablet 2,400 mg PO TID 06/09/22 06/18/22 History sodium bicarbonate 650 mg tablet 1,300 mg PO BID 06/09/22 06/18/22 History cyanocobalamin (vitamin B-12) 1,000 mcg PO DAILY #30 caps 06/11/22 06/18/22 Rx 1,000 mcg capsule doxycycline hyclate 100 mg capsule 100 mg PO BID 6 weeks #84 caps 06/11/22 06/18/22 Rx folic acid 400 mcg tablet 400 mcg PO QAM #30 tabs 06/11/22 06/18/22 Rx gabapentin 300 mg capsule 300 mg PO DAILY@1500 #0 caps 06/11/22 06/18/22 Rx patiromer calcium sorbitex 16.8 16.8 g PO DAILY #30 ea 06/11/22 06/18/22 Rx gram oral powder packet (Veltassa) Protective boot, R foot #1 ea 06/13/22 06/18/22 Rx Past Med/Surg History Medical History (Updated 06/18/22 @ 15:27 by Melanie Quijano MD) Atrial fibrillation AV fistula LEFT ARM Avascular necrosis of bones of both hips Chronic pain Diabetes mellitus MONITORING, NO MEDICINE TO TREAT. 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 GETA. Grade 1 view. Escobar 2. 8.0 ETT. No issues. History of incisional hernia repair History of nephrectomy, left (2015) Due to Renal Cell Cancer Hx of abdominal surgery PERITONEAL CATHETER INSERTION + REVISION Hx of umbilical hernia repair (02/2019) S/P arteriovenous (AV) fistula creation S/P arteriovenous (AV) fistula repair MULTIPLE S/P excisional debridement 06/08/22 Dr. Neo Goodwin at [facility]- Right foot excision/exostectomy osteomyelitis of the talus, Tenosynovectomy of the flexor hallucis longus tendon, Partial resection flexor hallucis longus tendon, Excision/exostectomy osteomyelitis of the calcaneus, Debridement 3 cm diameter x 0.4 cm depth foot ulcer, Evacuation abscess, dorsal and medial right foot. 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) 2nd toe, d/t embolism Status post insertion of hemodialysis catheter +MULTIPLE REVISIONS Family History Brother Liver cirrhosis secondary to ALBA Family history of diabetes mellitus Father Brain tumor Coronary heart disease Hypertension Family history of diabetes mellitus Myocardial infarction Mother Liver cancer Hypertension Family history of diabetes mellitus Breast cancer Grandmother (Maternal) Stroke Sister Family history of diabetes mellitus Ovarian cancer x2 Grandfather (Maternal) Family hx of colon cancer Colorectal cancer Prostate cancer Grandfather (Paternal) Prostate cancer Social History Smoking Status: Never smoker Second Hand Exposure: No; Hx Alcohol Use: No Hx Substance Use: No Preferred Language: Uzbek Communication Ability: Effective Visual Impairment: No Limitations Hearing Ability: Normal Mobile Device Developer Required: No Beliefs That Will Affect Care: None marital status: Current Living Situation: Alone current occupational status: disabled 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 Nontoxic. NAD. LUNGS: Clear to auscultation bilaterally. CARDIOVASCULAR: Regular rate and rhythm w/ SCOTT noted ABDOMEN: Soft, non-tender and non-distended. + BS throughout. EXTREMITIES: R foot in boot. He is s/p BKA on L Results & Data Results & Data ([facility]) Vital Signs (Past 12 Hours) Vital Signs Temp Pulse Pulse Resp BP BP Pulse Ox 06/17/22 11:07 120/60 06/17/22 11:06 67 15 97 06/17/22 11:02 67 15 86/52 L 94 06/17/22 09:50 36.7 C 84 14 102/49 L 97 O2 Del Method 06/17/22 11:07 06/17/22 11:06 Room Air 06/17/22 11:02 Room Air 06/17/22 09:50 Room Air Laboratory Results 06/17/22 10:55 06/17/22 10:55 Diagnostic Findings Venous Doppler Study 06/17/22 10:27 US venous doppler UE RT HISTORY: 56 years-old Male dvt acute pain and swelling of the right upper extremity COMPARISON: None TECHNIQUE: Multiple real-time sonographic images of the right upper extremity deep venous structures were obtained assessing grayscale appearance, color and spectral flow FINDINGS: Nonocclusive thrombus is noted within the basilic vein extending proximally to the midportion of the vessel for a length of less than 5 cm. 1.9 cm superficial thrombus is noted within a superficial vein of the proximal to mid arm which appears to be the cephalic vein. No deep venous thrombus identified. IMPRESSION: 1. No DVT identified. 2. Superficial venous thrombus of the right upper extremity. ACT 112: Negative or not required by law. The above report was generated using voice recognition software. It may contain grammatical, syntax or spelling errors. Electronically signed by: Matt Steele M.D. 06/17/2022 12:00 PM ECG Additional Comments: EKG - Sinus rhythm with sinus arrhythmia Supervising Physician Co-Signing Physician Notes Patient seen and examined, chart reviewed, case discussed with Fabienne Echols PA-C and I agree with the assessment and plan as above except as otherwise noted Labs and images reviewed Mary is a 56-year-old male with a history of osteomyelitis and occluded PICC line who presented for PICC line occlusion. Patient noted to have superficial thrombi this in ER. Afebrile, right foot in boot, heart regular at bedside. AV fistula intact +thrill. Central line deferred, pt beign transitioned to Dalvance with MTU infusions. Agree with plan above.Heart rate regular, lungs clear. PG Care Time/CCT Total # of Minutes Spent Total Time Spent with Patient: Total time spent is greater than 50% in coordination of care (as documented) at patient's floor/unit and/or counseling patient: Coding Level of Care Code 47174 INT INP/OBS CARE 3/75MIN Diagnoses Osteomyelitis M86.9 Laterality: right Osteomyelitis location: foot Osteomyelitis type: unspecified type Occluded PICC line T82.898A ESRD (end stage renal disease) on dialysis N18.6; Z99.2 Hypertension I10 Diabetes mellitus E11.9 (1) Osteomyelitis Laterality: right Osteomyelitis location: foot Osteomyelitis type: un specified type Qualified Code(s): M86.9 - Osteomyelitis, unspecified
[2022-06-17] MEDS ORDERED: ACETAMINOPHEN 325 MG TAB PO PRN (15:37)
[2022-06-17] MEDS ORDERED: ALUMINUM/MAGNESIUM SUSP 30 ML UDC PO PRN (15:37)
[2022-06-17] MEDS ORDERED: MAGNESIUM HYDROXIDE SUSP 30 ML UDC PO PRN (15:37)
[2022-06-17] MEDS ORDERED: ONDANSETRON INJ 2 MG/ML 2 ML VIAL IV PRN (15:37)
[2022-06-17] MEDS ORDERED: GABAPENTIN 300 MG CAP PO SCH (15:37)
[2022-06-17] MEDS ORDERED: DAPTOmycin 675 MG in SYRINGE 0 ML IV ONE (15:45)
[2022-06-17] MEDS ORDERED: LACTULOSE SYRUP 20 GM/30 ML UDC PO PRN (15:56)
[2022-06-17] MEDS ORDERED: PATIROMER CALCIUM SORBITEX 8.4 GM PACK PO SCH ×3 (16:00→18:00)
[2022-06-17] MEDS: SEVELAMER HCL 800 MG TABLET PO SCH ×3 (16:34→20:45)
[2022-06-17] MEDS: DOXYCYCLINE HYCLATE 100 MG CAP PO SCH (20:23)
[2022-06-17] MEDS: TAMSULOSIN HCL 0.4 MG CAP PO SCH (20:26)
[2022-06-17] MEDS: MoRPHine SULFATE CR 15 MG TABCR PO SCH (20:38)
[2022-06-17] MEDS ORDERED: ZOLPIDEM TARTRATE 10 MG TAB PO SCH (21:00)
[2022-06-17] MEDS ORDERED: amLODIPine BESYLATE 5 MG TAB PO SCH (21:00)
[2022-06-17] MEDS ORDERED: predniSONE 5 MG TAB PO SCH (21:00)
[2022-06-17] MEDS ORDERED: SODIUM BICARBONATE 650 MG TAB PO SCH (21:00)
[2022-06-18 07:11] LABS: Hematocrit (blood only) 24.9 % (42.0-52.0); Hemoglobin 8.2 g/dl (14.0-18.0); Mean Corpuscular Hemoglobin 31.1 pg (25.0-34.0); Mean Corpuscular Hgb Conc 32.9 g/dL (32.0-36.0); Mean Corpuscular Volume 94.3 fL (80.0-100.0); Mean Platelet Volume 10.9 fL (9.4-12.4); Nucleated RBC # (auto) 0.03 K/uL (0-0.12); Nucleated RBC % (auto) 0.3 %; Platelet Count 214 K/uL (130-400); RDW Standard Deviation 51.5 fL (36.4-46.3); Red Blood Count 2.64 M/uL (4.70-6.10); White Blood Count 11.12 K/ul (4.8-10.8)
[2022-06-18 07:50] LABS: Basophils # (auto) 0.04 K/uL (0-0.2); Basophils % (auto) 0.4 %; Echinocytes 1+; Eosinophils # (auto) 0.02 K/uL (0-0.50); Eosinophils % (auto) 0.2 %; Immature Granulocytes # (auto) 0.84 K/uL (0.01-0.20); Immature Granulocytes % (auto) 7.6 %; Lymphocytes # (auto) 0.62 K/uL (1.2-3.4); Lymphocytes % (auto) 5.6 %; Monocytes # (auto) 0.46 K/uL (0.11-0.59); Monocytes % (auto) 4.1 %; Neutrophils # (auto) 9.14 K/uL (1.40-6.50); Neutrophils % (auto) 82.1 %; Polychromasia 1+
[2022-06-18 08:06] LABS: Calcium 7.5 mg/dl (8.5-10.1); Creatinine Clr Calc Pharmacy 4.8 ml/min; Est GFR (African American) 2.8 ml/min; Est GFR (Non-African American) 2.4 ml/min; Magnesium 2.3 mg/dl (1.7-2.4); Phosphorus 15.9 mg/dl (2.5-4.9); Potassium 5.4 mmol/L (3.5-5.1)
[2022-06-18] MEDS ORDERED: FOLIC ACID 400 MCG TAB PO SCH (09:00)
[2022-06-18] MEDS ORDERED: EPOETIN ALFA 20,000 UNITS in SYRINGE 0 ML IV SCH (10:00)
[2022-06-18] MEDS ORDERED: EPOETIN ALFA 20,000 UNITS/ML VIAL IV SCH ×2 (10:45→11:30)
[2022-06-18] MEDS ORDERED: SEVELAMER HCL 800 MG TABLET PO SCH (12:00)
--- NOTE | 2022-06-18 12:12 | Communication Note ---
Date of Service: June 18, 2022 By CMS guidelines, a determination that the admission or continued stay is not medically necessary has been made by a member of the UR committee and a physi dylan for this hospital stay, therefore a Code 44 will be completed and the Inpatient admission will be changed to outpatient.
--- NOTE | 2022-06-18 12:22 | Discharge Summary ---
Date of Service June 18, 2022 Admission HPI Per Admitting Provider Sesar Hernandez is a 56 yo male with a pmhx of renal cell ca s/p left nephrectomy, ESRD on HD weekly (Tuesdays), and medical noncompliance who was recently hospitalized 06/05-06/11 for R foot osteomyelitis. He was discharged home on course of Doxycycline and IV Daptomycin q48h and was to complete on 07/20/22. Patient was doing well following discharge until yesterday when he presented to the ER c/o leaking from his PICC line. The line was removed and he was told to be re-evaluated for new picc line placement. In the ED, pt had ultrasound of his RUE and noted to have a superficial thrombophlebitis. ER team consulted with hotel engineer for central line placement who stated they would evaluate patient tomorrow. He is also overdue for dialysis with a creatinine of 17 and BUN of 125, potassium of 5.7. The ER was able to place a peripheral IV. He is due for a dose of Daptomycin today but would prefer not to stay overnight in the hospital as today is his today to see his son according to his custody arrangement. However, since he missed picking him up at the schedule time, he is reluctantly agreeable to stay overnight one night. He is agreeable to receiving dialysis tomorrow. Dr. Quijano was made aware. Hospitalists have been contacted for admission. Principal Diagnosis 1. Osteomyelitis R Foot 2. ESRD 3. Noncompliance Discharge Exam GENERAL: 56 yo Well-developed, well-nourished WM. Nontoxic. NAD. LUNGS: Clear to auscultation bilaterally. CARDIOVASCULAR: Regular rate and rhythm w/ SCOTT noted ABDOMEN: Soft, non-tender and non-distended. + BS throughout. EXTREMITIES: R foot in boot. He is s/p BKA on L Discharge Data Allergies Allergy/AdvReac Type Severity Reaction Status Date / Time oxycodone Allergy Severe Swelling Verified 06/17/22 12:52 of throat and itchiness finasteride Allergy Intermediate Hives Verified 06/17/22 12:52 hydrocodone Allergy Intermediate Rash Verified 06/17/22 12:52 Penicillins Allergy Intermediate RASH, Verified 06/17/22 12:52 HIVES, ITCHING Consultations 06/17/22 12:50 ED Decision to Admit Stat 06/17/22 15:37 Consult Nephrology Routine Ordered Studies Venous Doppler Study 06/17/22 10:27 US venous doppler UE RT HISTORY: 56 years-old Male dvt acute pain and swelling of the right upper ext remity COMPARISON: None TECHNIQUE: Multiple real-time sonographic images of the right upper extremity deep venous structures were obtained assessing grayscale appearance, color and spectral flow FINDINGS: Nonocclusive thrombus is noted within the basilic vein extending proximally to the midportion of the vessel for a length of less than 5 cm. 1.9 cm superficial thrombus is noted within a superficial vein of the proximal to mid arm which appears to be the cephalic vein. No deep venous thrombus identified. IMPRESSION: 1. No DVT identified. 2. Superficial venous thrombus of the right upper extremity. ACT 112: Negative or not required by law. The above report was generated using voice recognition software. It may contain grammatical, syntax or spelling errors. Electronically signed by: Matt Steele M.D. 06/17/2022 12:00 PM Hospital Course (1) Osteomyelitis: Osteo of R foot s/p I&D and debridement by Dr. Goodwin on 06/08 - Seen by ID during last hospitalization - recommended for Dapto 8mg/kg after HD 3x per week in addition to Doxycycline 100mg BID through 07/20 - Patient is noncompliant with HD 3x per week, goes only ONCE per week - ID (Dr. Berger) if treatment with Daptomycin is not feasible consider Dalvance - Will dose with Daptomycin 675mg IV x1 given 06/17 - Continue Doxycycline 100mg BID - Discussed with ID, will plan to transition to Dalbavancin 1000mg IV x2 doses, first to be given today in MTU * Cleared with pharmacy and also d/w MTU who can accommodate patient's first dose today 06/18 @ 1:30 (2) Occluded PICC line: - PICC line removed on 06/16 in ER - Now with superficial thrombophlebitis - warm compresses (3) ESRD (end stage renal disease) on dialysis: - Overdue for dialysis, reviewed chemistry - Case d/w Dr. Quijano who has been consulted, arranged for HD session 06/18 - Hyperkalemic, Veltassa continued - Continue Sodium Bicarb and Sevelamer (4) Hypertension: - Normotensive, continue Amlodipine (5) Diabetes mellitus: - Does not take an medications for this at home - Carb consistent + renal diet - Spot check blood sugars at home Plan Patient is medically and hemodynamically stable for discharge. He claims he will be compliant with the follow up dose of Dalbavancin that will be due on 06/26 (after receiving today's dose). Will need PCP and ortho follow up. PCP could arrange for ID outpatient follow up which is also recommended. Above plan of care has been d/w Dr. Cedillo who is in agreement with the aforementioned. Total Time Total Time Spent Total Time Spent (In Minutes): <30 minutes Discharge Plan Discharge Items Patient Disposition: Home - Self-Care Reason For Visit: OSTEMYELITIS,LOST IV ACCESS HD Discharge Diagnosis: bone infection, kidney failure Activity: Resume your previous activity Non-emergency contact: Primary Care Provider and [employer] Call non-emergency contact if: you have any medication questions Follow-up/Referrals: Em Brannon, [Primary Care Provider] - Diet: Carb Consistent or DM2 Addtl Attending Provider Instructions: You were hospitalized due to loss of IV access which was required for you to receive your antibiotics to treat the infection in your foot. You were also due for dialysis of which you underwent today 06/18/22. You are going to be transitioned to a medication called Dalbavancin which is an antibiotic that can be administered on a weekly basis to complete the treatment for your bone infection. Your first dose will be at 1:30 pm. Continue taking the Doxycycline 100mg twice a day as directed until gone. Please do not miss any follow up appointments for further doses. It is also recommended that you follow up with an infectious disease physician for continuing care. It is STRONGLY advised that you are compliant with getting dialysis on a regular basis. Failure to do so will allow toxins to build up in your blood stream and eventually will cause multisystem organ failure and . It is recommended that you follow up with orthopedics (Dr. Goodwin), please call to make an appointment. If you have any questions after you leave the hospital, feel free to contact the nonemergency number listed on your paperwork. In the event of a medical emergency, call 911 or go to your nearest ER. Pending Studies at Discharge: No Stand-Alone Forms: My [facility], Smoking Cessation Medications and DC Order Prescriptions: Continued lactulose 10 gram/15 mL solution 30 ml PO BID PRN (Reason: Constipation) Qty: 946 0RF (DME) Prosthetic supplies See Rx Instructions .Route .MEDSUPPLY Qty: 1 0RF Rx Instructions: Locking liner Spacer socks suspension sleeves amlodipine 5 mg tablet 5 mg PO HS Qty: 90 1RF prednisone 5 mg tablet 5 mg PO BID Qty: 180 1RF morphine [MS Contin] 30 mg tablet extended release 30 mg PO Q12H Qty: 60 0RF (DME) Protective boot, R foot See Rx Instructions .Route .MEDSUPPLY Qty: 1 0RF Rx Instructions: As directed (DME) RT silicone partial foot prostehsis See Rx Instructions .Route .MEDSUPPLY Qty: 1 0RF Rx Instructions: As directed. functional level K3 tamsulosin 0.4 mg capsule 0.4 mg PO BID Qty: 180 3RF (DME) R hand prosthesis See Rx Instructions .Route .MEDSUPPLY Qty: 1 0RF Rx Instructions: As directed ondansetron HCl 4 mg tablet 4 mg PO Q8H PRN (Reason: nausea and vomiting) Qty: 40 0RF acetaminophen [Tylenol Extra Strength] 500 mg Tablet 1,000 mg PO TID PRN (Reason: Pain) clobetasol 0.05 % Cream 1 applic TOPICAL BID PRN (Reason: AFFECTED AREA NEEDED) zolpidem 10 mg tablet 10 mg PO HS Rx Instructions: TAKE 1 TABLET BY MOUTH EVERY DAY AT BEDTIME sevelamer carbonate 800 mg tablet 2,400 mg PO TID sodium bicarbonate 650 mg tablet 1,300 mg PO BID gabapentin 300 mg Capsule 300 mg PO DAILY@1500 Qty: 0 0RF folic acid 400 mcg Tablet 400 mcg PO QAM Qty: 30 0RF cyanocobalamin (vitamin B-12) 1,000 mcg capsule 1,000 mcg PO DAILY Qty: 30 0RF Veltassa 16.8 gram powder in packet 16.8 g PO DAILY Qty: 30 0RF doxycycline hyclate 100 mg capsule 100 mg PO BID 42 Days Qty: 84 0RF Discontinued daptomycin 500 mg recon soln 669 mg IV Q48H 42 Days Qty: 10 0RF Rx Instructions: administer over 30 mins Discharge Orders: Discharge Order (Routine); Ordered 06/18/22 Ordered By: Fabienne Echols Admission Data Admit Date/Time: 06/17/22 13:00 Attending Provider: Gene Cedillo Admit Provider: Ritesh Rousseau Primary Care Provider: Em Brannon Other Providers: Ritesh Rousseau ; Melanie Quijano Coding Level of Care Code 19271 IN/OBS DISCH 30 MIN/LESS Diagnoses Osteomyelitis M86.9 Laterality: right Osteomyelitis location: foot Osteomyelitis type: unspecified type Occluded PICC line T82.898A ESRD (end stage renal disease) on dialysis N18.6; Z99.2 Hypertension I10 Diabetes mellitus E11.9
[2022-06-18] MEDS: TAMSULOSIN HCL 0.4 MG CAP PO SCH (12:59)
[2022-06-18] MEDS: DOXYCYCLINE HYCLATE 100 MG CAP PO SCH (12:59)
[2022-06-18] MEDS: MoRPHine SULFATE CR 15 MG TABCR PO SCH (12:59)
--- NOTE | 2022-06-18 15:14 | Nephrology Consultation ---
Date of Consultation June 18, 2022 Assessment & Plan (1) ESRD on hemodialysis: (2) Occluded PICC line: (3) Osteomyelitis: (4) Anemia: (5) Hyperkalemia: (6) Metabolic acidosis: (7) Hyperphosphatemia: Plan ESRD, on hemodialysis, Saturday, , Saturday at [facility] [place] although he has been getting dialysis only for 2 hours a week. Recent osteomyelitis and PICC line placement complicated by superficial thrombophlebitis and PICC line was removed. Admitted with significant azotemia. -- will do 4 hours dialysis today with low blood flow considering significant azotemia, minimum UF as volume status and blood pressure acceptable. -- Continue potassium binder and sodium bicarbonate at home -- left arm nephrology precaution -- dose medications for EGFR less than 10 -- low-potassium, low phosphorus diet Thank you for allowing me to participate in your patient's care. It was a pleasure to see Kam. History of Present Illness Reason for Consultation: ESRD, on hemodialysis, presented with azotemia, multiple electrolyte abnormality. Attending Physician: Gene Cedillo MD History of Present Illness Mr. Sesar Hernandez is a 56 yo male with PMH of ESRD on HD, h/o renal cell ca s/p left nephrectomy admitted to the hospital yesterday after presented with PICC line malfunction and noted to have azotemia and multiple electrolyte abnormality. Nephrology consult was requested to manage dialysis while in hospital. EMR records are reviewed in detail during patient's visit. Sesar was recently hospitalized from 06/05-06/11 for R foot osteomyelitis. He was discharged home on course of Doxycycline and IV Daptomycin q48h and was to complete on 07/20/22. He presented to ER c/o leaking from his PICC line. The line was removed and ultrasound of his RUE and noted to have a superficial thrombophlebitis. The ER was able to place a peripheral IV and received a dose of Daptomycin although he was not getting it as she was supposed to as he was getting dialysis only once a week or last. ID has been tentatively planning to switch antibiotic to Dalvance which could be given once a week. He was also overdue for dialysis and on admission creatinine of was 17 and BUN of 148, potassium of 5.7, Phos 16, bicarb 14. Kam has been on maintenance HD on a TT schedule at [facility]. he has been on dialysis for last almost 6 years, initially was on hemodialysis which was complicated by constant headache and then he was on PD but unfortunately was complicated by severe sepsis and prolonged associated hospitalization and multiple amputations. Sesar has been non-compliant with his dialysis prescription and he repeatedly stated that he values quality of life and his personal goals of care are not consistent with spending more time at hemodialysis. There have been multiple discussions regarding risks associated with inadequate dialysis in the past. Sesar states that he is willing to assume all risks, including debilitated state and . he has been getting dialysis only 2 hours a week or less. This does not concern him. To compensate for lack of clearance with HD, Sesar is regularly maintained on patiromer and oral sodium bicarbonate. He is also educated on low potassium diet. He dialyzes via a L forearm AVF. He was seen during dialysis this morning and he was very upset that he had to stay overnight as he was under the impression that he was going to get dialysis on Saturday and explain generally there is no dialysis on Saturday. He was tolerating dialysis this morning, blood pressure was acceptable. Allergies Allergy/AdvReac Type Severity Reaction Status Date / Time oxycodone Allergy Severe Swelling Verified 06/18/22 14:08 of throat and itchiness finasteride Allergy Intermediate Hives Verified 06/18/22 14:08 hydrocodone Allergy Intermediate Rash Verified 06/18/22 14:08 Penicillins Allergy Intermediate RASH, Verified 06/18/22 14:08 HIVES, ITCHING Home Medications Medication Instructions Recorded Confirmed Type acetaminophen 500 mg tablet 1,000 mg PO TID PRN Pain 08/12/18 06/18/22 History (Tylenol Extra Strength) lactulose 10 gram/15 mL oral 30 ml PO BID PRN Constipation #946 08/10/20 06/18/22 Rx solution mL Prosthetic supplies #1 ea 12/01/20 06/18/22 Rx RT silicone partial foot prostehsis #1 ea 07/01/21 06/18/22 Rx R hand prosthesis #1 ea 10/10/21 06/18/22 Rx amlodipine 5 mg tablet 5 mg PO HS #90 tabs 02/06/22 06/18/22 Rx tamsulosin 0.4 mg capsule 0.4 mg PO BID #180 caps 02/15/22 06/18/22 Rx ondansetron HCl 4 mg tablet 4 mg PO Q8H PRN nausea and 03/19/22 06/18/22 Rx vomiting #40 tabs prednisone 5 mg tablet 5 mg PO BID #180 tabs 05/09/22 06/18/22 Rx morphine 30 mg tablet,extended 30 mg PO Q12H #60 tabs 05/31/22 06/18/22 Rx release (MS Contin) clobetasol 0.05 % topical cream 1 applic topical BID PRN AFFECTED 06/05/22 06/18/22 History AREA NEEDED zolpidem 10 mg tablet 10 mg PO HS 06/05/22 06/18/22 History sevelamer carbonate 800 mg tablet 2,400 mg PO TID 06/09/22 06/18/22 History sodium bicarbonate 650 mg tablet 1,300 mg PO BID 06/09/22 06/18/22 History cyanocobalamin (vitamin B-12) 1,000 mcg PO DAILY #30 caps 06/11/22 06/18/22 Rx 1,000 mcg capsule doxycycline hyclate 100 mg capsule 100 mg PO BID 6 weeks #84 caps 06/11/22 06/18/22 Rx folic acid 400 mcg tablet 400 mcg PO QAM #30 tabs 06/11/22 06/18/22 Rx gabapentin 300 mg capsule 300 mg PO DAILY@1500 #0 caps 06/11/22 06/18/22 Rx patiromer calcium sorbitex 16.8 16.8 g PO DAILY #30 ea 06/11/22 06/18/22 Rx gram oral powder packet (Veltassa) Protective boot, R foot #1 ea 06/13/22 06/18/22 Rx Patient History Medical History (Updated 06/18/22 @ 15:27 by Melanie Quijano MD) Atrial fibrillation AV fistula LEFT ARM Avascular necrosis of bones of both hips Chronic pain Diabetes mellitus MONITORING, NO MEDICINE TO TREAT. 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 GETA. Grade 1 view. Escobar 2. 8.0 ETT. No issues. History of incisional hernia repair History of nephrectomy, left (2015) Due to Renal Cell Cancer Hx of abdominal surgery PERITONEAL CATHETER INSERTION + REVISION Hx of umbilical hernia repair (02/2019) S/P arteriovenous (AV) fistula creation S/P arteriovenous (AV) fistula repair MULTIPLE S/P excisional debridement 06/08/22 Dr. Neo Goodwin at [facility]- Right foot excision/exostectomy osteomyelitis of the talus, Tenosynovectomy of the flexor hallucis longus tendon, Partial resection flexor hallucis longus tendon, Excision/exostectomy osteomyelitis of the calcaneus, Debridement 3 cm diameter x 0.4 cm depth foot ulcer, Evacuation abscess, dorsal and medial right foot. 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) 2nd toe, d/t embolism Status post insertion of hemodialysis catheter +MULTIPLE REVISIONS Family History Brother Liver cirrhosis secondary to ALBA Family history of diabetes mellitus Father Brain tumor Coronary heart disease Hypertension Family history of diabetes mellitus Myocardial infarction Mother Liver cancer Hypertension Family history of diabetes mellitus Breast cancer Grandmother (Maternal) Stroke Sister Family history of diabetes mellitus Ovarian cancer x2 Grandfather (Maternal) Family hx of colon cancer Colorectal cancer Prostate cancer Grandfather (Paternal) Prostate cancer Social History Smoking Status: Never smoker Second Hand Exposure: No; Hx Alcohol Use: No Hx Substance Use: No Preferred Language: Belarusian Communication Ability: Effective Visual Impairment: No Limitations Hearing Ability: Normal Acid Mixer Required: No Beliefs That Will Affect Care: None marital status: Current Living Situation: Alone current occupational status: disabled 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 Physical Exam Constitutional: WD/WN, vitals as above no acute distress Eyes: + anicteric sclerae Neck: normal visual inspection Respiratory: Auscultation: lungs clear to auscultation bilaterally Cardiovascular: Rate/Rhythm: regular rate and regular rhythm Heart Sounds: normal S1 and normal S2 Extremities: no edema Gastrointestinal (Abdomen): Inspection/Auscultation: abdomen normal to inspection Musculoskeletal: left BKA Skin: no rashes Neurologic: no focal motor deficits Psychiatric: Orientation: alert and oriented x 3 Affect: euthymic affect Results & Data ([facility]) Vital Signs (Past 12 Hours) Vital Signs Temp Pulse Pulse Pulse Resp BP BP 06/18/22 10:30 68 109/94 06/18/22 10:00 79 119/92 06/18/22 09:30 58 L 101/54 L 06/18/22 09:09 74 152/98 H 06/18/22 08:58 36.5 C 64 06/18/22 07:47 36.5 C 64 18 99/64 L 06/18/22 05:04 96 H 06/18/22 03:11 36.7 C 78 20 102/59 L 06/18/22 00:18 36.8 C 82 20 104/66 Pulse Ox O2 Del Method 06/18/22 10:30 06/18/22 10:00 06/18/22 09:30 06/18/22 09:09 06/18/22 08:58 06/18/22 07:47 95 Room Air 06/18/22 05:04 06/18/22 03:11 93 Room Air 06/18/22 00:18 93 Room Air PG Care Time/CCT Total # of Minutes Spent Total Time Spent with Patient: Total time spent is greater than 50% in coordination of care (as documented) at patient's floor/unit and/or counseling patient: Coding Level of Care Code 88510 INT INP/OBS CARE MIN Diagnoses ESRD on hemodialysis N18.6; Z99.2 Occluded PICC line T82.898A Osteomyelitis M86.9 Laterality: right Osteomyelitis location: foot Osteomyelitis type: unspecified type Anemia D64.9 Hyperkalemia E87.5 Metabolic acidosis E87.20 Hyperphosphatemia E83.39 (3) Osteomyelitis Laterality: right Osteomyelitis location: foot Osteomyelitis type: unspecified type Qualified Code(s): M86.9 - Osteomyelitis, unspecified
--- NOTE | 2022-06-19 05:04 | Electrocardiogram Report ---
Test Reason : Blood Pressure : / mmHG Vent. Rate : 063 BPM Atrial Rate : 063 BPM P-R Int : 166 ms QRS Dur : 096 ms QT Int : 430 ms P-R-T Axes : 040 027 047 degrees QTc Int : 440 ms Normal sinus rhythm Premature atrial complexes Otherwise Normal ECG When compared with ECG of 11-JUN-2022 07:59, No significant change Confirmed by Vince Watkins ([id number]) on 06/19/2022 5:03:48 AM Referred By: REFERRED SELF Confirmed By:Vince Watkins
== END 2022-06-18 16:47 | disposition home or self-care (01) | DRG 299 ==
LOC: ED 09:47 → INTOOBSV 13:00 → SUATTDRO 13:00 → EDINP 13:00 → 2W 15:37

== ENCOUNTER 2023-08-01 13:44 | Inpatient (IN) ==
--- NOTE | 2023-08-01 13:53 | ED Triage Note ---
Date of Service August 01, 2023 Provider in Triage Author: Ana Oliveira History of Present Illness This patient was briefly evaluated while in triage. An abbreviated physical exam was performed. This patient is a 58-year-old Male who presents to the ED for evaluation of chest pain and SOB that started Saturday. The symptoms let up a little bit, but then came back. History of heart murmur, but no other heart problems. No history of lung problems. Symptoms worse with exertion. No fevers, cough, or URI symptoms. No swelling of his leg. He does not have a left kidney and is stage V renal failure on dialysis and . Physical Exam GENERAL: Non-toxic and in no acute distress. HEENT: Pupils equal. No obvious scleral icterus. HEART: Regular rate and rhythm with heart murmur noted. LUNGS: Clear to auscultation. No accessory muscle use. ABDOMEN: Soft, nontender to palpation. NEURO: Alert and oriented. No obvious neurological deficits on quick neuro exam. MUSCULOSKELETAL: Left leg prosthesis. No significant edema or calf tenderness of the right lower extremity. Initial orders for labs and / or imaging were placed and patient was placed in the waiting area until a bed is available. Please see further documentation for the full ED course. MDM / Impression Impression Impression: Chest pain, ESRD on dialysis, Elevated troponin
[2023-08-01] MEDS: ASPIRIN CHEW 324 MG PO STA (14:10)
[2023-08-01 14:46] LABS: Basophils # (auto) 0.02 K/uL (0.00-0.20); Basophils % (auto) 0.2 %; Eosinophils # (auto) 0.12 K/uL (0.00-0.50); Eosinophils % (auto) 1.2 %; Hematocrit (blood only) 27.3 % (42.0-52.0); Hemoglobin 8.8 g/dl (14.0-18.0); Immature Granulocytes # (auto) 0.21 K/uL (0.01-0.20); Immature Granulocytes % (auto) 2.1 %; Lymphocytes # (auto) 0.52 K/uL (1.20-3.40); Lymphocytes % (auto) 5.2 %; Mean Corpuscular Hemoglobin 30.8 pg (25.0-34.0); Mean Corpuscular Hgb Conc 32.2 g/dL (32.0-36.0); Mean Corpuscular Volume 95.5 fL (80.0-100.0); Mean Platelet Volume 11.3 fL (9.4-12.4); Neutrophils # (auto) 8.27 K/uL (1.40-6.50); Neutrophils % (auto) 83.3 %; Nucleated RBC # (auto) 0.02 K/uL (0.00-0.12); Nucleated RBC % (auto) 0.2 %; Platelet Count 147 K/uL (130-400); RDW Coefficient of Variation 16.1 % (11.5-14.5); RDW Standard Deviation 57.4 fL (36.4-46.3); Red Blood Count 2.86 M/uL (4.70-6.10); White Blood Count 9.94 K/ul (4.8-10.8)
--- NOTE | 2023-08-01 14:52 | XRay Report ---
XR chest 1V not portable HISTORY: 58 years-old Male Chest pain, nonspecific COMPARISON: 06/07/2022 TECHNIQUE: PA view the chest FINDINGS: Cardiac silhouette is enlarged. Chronic interstitial coarsening. Mild right hemidiaphragmatic elevati on. No pneumothorax, pleural effusion or overt pulmonary edema. Degenerative changes of the shoulders and spine. Right upper paratracheal opacity is again noted compatible with vascular pedicle. Calcifi ed mediastinal and hilar lymph nodes compatible with prior granulomatous disease. There are a few sca ttered calcified granulomata at the left lung. IMPRESSION: 1. Cardiomegaly without acute process. 2. Prior granulomatous disease. ACT 112: Negative or not required by law. The above report was generated using voice recognition software. It may contain grammatical, syntax o r spelling errors. Electronically signed by: Matt Steele M.D. 08/01/2023 2:51 PM
[2023-08-01 15:15] LABS: INR 0.9 (0.9-1.1); Partial Thromboplastin Time 27 Seconds (21-31); Prothrombin Time 10.3 Seconds (9.0-12.0)
[2023-08-01 15:22] LABS: Albumin Level 4.3 gm/dl (3.4-5.0); BUN Creatinine Ratio 4.6 (10-20); Bilirubin,Total 0.7 mg/dl (0.2-1.0); Calcium 8.5 mg/dl (8.6-10.3); Creatinine Clr Calc Pharmacy 11.5 ml/min; Est GFR (African American) 8.7 ml/min; Est GFR (Non-African American) 7.5 ml/min; Globulin 2.1 gm/dl (2.5-4.0); Magnesium 2.1 mg/dl (1.7-2.4); Phosphorus 3.8 mg/dl (2.5-4.9); Potassium 3.7 mmol/L (3.5-5.1); Total Protein 6.4 gm/dl (6.0-8.3); Troponin I High Sensitivity 309.1 pg/ml (0-20)
[2023-08-01 15:33] LABS: Adenovirus PCR Not Detected (NotDetected); Bordetella parapertussis PCR Not Detected (NotDetected); Bordetella pertussis PCR Not Detected (NotDetected); Chlamydia pneumoniae PCR Not Detected (NotDetected); Coronavirus 229E PCR Not Detected (NotDetected); Coronavirus CoV-2 (COVID19)PCR Not Detected (NotDetected); Coronavirus HKU1 PCR Not Detected (NotDetected); Coronavirus NL63 PCR Not Detected (NotDetected); Coronavirus OC43PCR Not Detected (NotDetected); Human Metapneumovirus PCR Not Detected (NotDetected); Influenza A PCR Not Detected (NotDetected); Influenza B PCR Not Detected (NotDetected); Mycoplasma pneumoniae PCR Not Detected (NotDetected); Parainfluenza Virus 1 PCR Not Detected (NotDetected); Parainfluenza Virus 2 PCR Not Detected (NotDetected); Parainfluenza Virus 3 PCR Not Detected (NotDetected); Parainfluenza Virus 4 PCR Not Detected (NotDetected); Respiratory Syncytial VirusPCR Not Detected (NotDetected); Rhinovirus/Enterovirus PCR Not Detected (NotDetected)
[2023-08-01 16:00] LABS: Appearance Urine Clear (Clear); Bacteria Urine Automated None Seen (None Seen); Bilirubin Urine Negative (Negative); Blood Urine Trace (Negative); Cast Urine Automated 0-2 /lpf (0-2); Color Urine Yellow; Epithelial Cell Urine Auto 0-2 /hpf (0-2); Glucose Urine UA Negative (Negative); Ketones Urine Negative (Negative); Leukocyte Esterase Urine Negative (Negative); Nitrite Urine Negative (Negative); Protein Urine 3+ (Negative); RBC Urine Automated 0-2 /hpf (0-2); Specific Gravity Urine 1.006 (1.000-1.030); Urobilinogen Urine Negative (Negative); WBC Urine Automated 0-5 /hpf (0-5); pH Urine 8.5 (4.5-7.5)
--- NOTE | 2023-08-01 16:27 | Emergency Department Note ---
Impression & Plan Chest pain, ESRD on dialysis, Elevated troponin ED Provider Note Diagnosis: Chest pain, elevated troponin, end-stage renal disease Disposition: Admission CHIEF COMPLAINT: Short of breath and chest pain HPI: Patient is a 58-year-old male presenting with complaint of chest pain. Patient states he has been having intermittent episodes worsening over the past 2 to 3 days time. Patient states is worse with exertion. Patient states the pain is sharp in nature left anterior chest wall. Patient states he was given aspirin upon arrival in the emergency room. Patient states he has been feeling short of breath. Patient denies any fevers or cough. Patient denies any previous cardiac catheterizations. Patient is on follow-up with a cable mock up assembler regularly. Patient states he has end-stage renal disease and a full dialysis treatment this morning. PAST MEDICAL HISTORY: See Below PAST SURGICAL HISTORY: See Below SOCIAL HISTORY: See Below HOME MEDICATIONS: See Below ALLERGIES: See Below VITALS: See Below PHYSICAL EXAMINATION: GENERAL: Well appearing, well nourished, NAD, non-toxic. EYE EXAM: Normal conjunctiva. OROPHARYNX: Moist mucus membranes. Grossly normal dentition. NECK: Supple, LUNGS: Clear to auscultation. Normal chest wall mechanics. HEART: NSR, murmur present ABDOMEN: Abdomen soft, non-tender, normo-active bowel sounds, no masses, no rebound or guarding BACK: No CVA TTP. SKIN: No rashes and no bruising. UPPER EXTREMITIES: Upper extremities are grossly normal, partial amputations of fingertips LOWER EXTREMITIES: Amputations bilateral lower extremities NEURO EXAM: A&O x3,, normal speech, moves all 4 extremities PSYCH: Cooperative MEDICAL DECISION MAKING: History obtained from: Patient ER Course: Patient is 58-year-old male end-stage renal disease had full treatment of dialysis today. Patient is been having left anterior chest wall pain. Patient states his pain is starting to become worse with exertion. Patient denies any previous cardiac catheterizations. Patient has significant history of amputation of the lower extremities after being septic and requiring vasopressor support previously. Patient has end-stage renal disease and a full treatment of dialysis. Patient does not follow with a cable mock up assembler regularly. Patient's case discussed with hospital service who accepts in for further treatment and evaluation. Patient does not have any active chest pain upon my reevaluation. Patient states he had full dose aspirin today. Labs (independently interpreted) are significant for: Troponin positive x 2 Imaging results (independently interpreted): Chest x-ray clear EKG interpretation (independently interpreted): Normal sinus rhythm no ST segment elevation or depression Consultants: Hospitalist Heart score 4 Triage Nursing notes reviewed and agree them. Vital Signs: reviewed and remarkable for: no significant abnormalities Past Med/Surg History Medical History (Updated 08/01/23 @ 21:49 by Xander Oden DO) Nausea and vomiting after administration of anesthetic agent History of anesthesia reaction Gets very nervous with a lot of nausea due to past experiences with procedures/ losing limbs, etc, > asks for something to help History of COVID-2019 History of blood transfusion 01/2020 History of cardioversion 10/2019 [facility] ESRD on hemodialysis [facility] in [place] > / OR /Saturday Abscess of right foot hx Infection of amputation site of lower extremity has at present on doxy to treat Scrotal swelling resolved Chronic pain Urinary incontinence Atrial fibrillation hx- cardioversion; 10/2019; no longer follows w/ cardio Peripheral arterial disease Avascular necrosis of bones of both hips Coronary artery disease code entered 02/04/[address] Brannon per EMR, office note from that date was cancelled. Remote 2017 [facility] cardiology records list nonobstructive CAD History of renal cell cancer (~2014) 2016 ALBA (nonalcoholic steatohepatitis) GERD (gastroesophageal reflux disease) Diverticulosis Dyslipidemia AV fistula LEFT ARM Hypertension FSGS (focal segmental glomerulosclerosis) Diabetes mellitus pt denies, no meds or treatment Surgical History (Updated 07/26/23 @ 09:04 by Blank Rodriguez LPN) History of prostate surgery 06/2023 History of hydrocelectomy (12/18/22) L side Status post PICC central line placement removed S/P excisional debridement 06/08/22 Dr. Neo Goodwin at [facility]- Right foot excision/exostectomy osteomyelitis of the talus, Tenosynovectomy of the flexor hallucis longus tendon, Partial resection flexor hallucis longus tendon, Excision/exostectomy osteomyelitis of the calcaneus, Debridement 3 cm diameter x 0.4 cm depth foot ulcer, Evacuation abscess, dorsal and medial right foot. 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 GETA. Grade 1 view. Escobar 2. 8.0 ETT. No issues. H/O hand surgery (~09/2018) Hilda 10/02/18 S/P arteriovenous (AV) fistula repair MULTIPLE > current in left arm Status post insertion of hemodialysis catheter +MULTIPLE REVISIONS Hx of abdominal surgery PERITONEAL CATHETER INSERTION + REVISION History of incisional hernia repair History of nephrectomy, left (2015) Due to Renal Cell Cancer Family History Brother Liver cirrhosis secondary to ALBA Family history of diabetes mellitus Father Brain tumor Coronary heart disease Hypertension Family history of diabetes mellitus Myocardial infarction Mother Liver cancer Hypertension Family history of diabetes mellitus Breast cancer Grandmother (Maternal) Stroke Sister Family history of diabetes mellitus Ovarian cancer Grandfather (Maternal) Family hx of colon cancer Colorectal cancer Prostate cancer Grandfather (Paternal) Prostate cancer Social History Smoking Status: Never smoker Tobacco Type: Smokeless Tobacco (Dip or Chew) Second Hand Exposure: No; Do You Dip or Chew Tobacco: Yes (advised npo status); Hx Alcohol Use: No Hx Substance Use: No Preferred Language: Georgian Communication Ability: Effective Visual Impairment: No Limitations Hearing Ability: Normal Embroiderer Required: No Beliefs That Will Affect Care: None marital status: Current Living Situation: Alone current occupational status: disabled 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[employer], 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, 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 How many Children do You have: 2 Other Information That Helps Us Care for You: No other: lives in [place] Feels Safe at Home: Yes Safety Concerns: Feels Safe At This Time Childhood Exposure to Second-Hand Smoke: Yes Diet: regular Diet Comment: regular caffeine: Yes during the past year weight has: remained stable Dental Care, Regularly: Yes Physical Activity Frequency: Daily Physical Activity Frequency Comment: walking Seatbelt Use: always Sunscreen Use: No Assistive Devices: Glasses and Prosthesis Allergies Allergies Allergy/AdvReac Type Severity Reaction Status Date / Time finasteride Allergy Intermediate Hives Verified 07/26/23 09:00 hydrocodone Allergy Intermediate Rash Verified 07/26/23 09:00 Penicillins Allergy Intermediate RASH, Verified 07/26/23 09:00 HIVES, ITCHING losartan AdvReac Nausea Verified 07/26/23 09:00 Home Meds Home Medications Medication Instructions Recorded Confirmed acetaminophen 500 mg tablet 1,000 mg PO TID PRN Pain 08/12/18 08/01/23 (Tylenol Extra Strength) clobetasol 0.05 % topical cream 1 applic topical BID PRN AFFECTED 06/05/22 08/01/23 AREA NEEDED sevelamer carbonate 800 mg tablet 2,400 mg PO TIDM 06/09/22 08/01/23 (Renvela) sodium bicarbonate 650 mg tablet 1,300 mg PO BID 06/09/22 08/01/23 sevelamer carbonate 800 mg tablet 800 mg PO .WITH SNACKS 09/15/22 08/01/23 lisinopril 5 mg tablet 5 mg PO QAM 09/16/22 08/01/23 calcium carbonate (Tums) 200 mg PO BID PRN Heartburn 09/25/22 08/01/23 pantoprazole 40 mg tablet,delayed 40 mg PO HS 05/20/23 08/01/23 release prednisone 5 mg tablet 10 mg PO DAILY 08/01/23 08/01/23 Previous Rx's Medication Instructions Recorded Prosthetic supplies #1 ea 12/01/20 RT silicone partial foot prostehsis #1 ea 07/01/21 R hand prosthesis #1 ea 10/10/21 folic acid 400 mcg tablet 400 mcg PO QAM #30 tabs 06/11/22 Locking Liners, Liner Liners, 1 #1 ea 06/26/22 ply spacer socks R partial foot prosthesis with #1 ea 06/26/22 arch support Repair L BKA prosthesis #1 ea 06/26/22 Protective boot, R foot #1 ea 07/24/22 amlodipine 5 mg tablet 5 mg PO HS #90 tabs 08/17/22 tamsulosin 0.4 mg capsule 0.4 mg PO BID #180 caps 09/03/22 R Toe off carbon fiber AFO #1 ea 09/13/22 patiromer calcium sorbitex 16.8 16.8 g PO DAILY #30 ea 10/23/22 gram oral powder packet (V[place]) Wheelchair (Manual) (Manual #1 ea 11/12/22 Wheelchair) promethazine 25 mg tablet 25 mg PO TID PRN nausea and 04/16/23 vomiting #20 tabs ipratropium bromide 21 mcg (0.03 2 spray intranasal BID #90 mL 04/19/23 %) nasal spray linaclotide 145 mcg capsule 145 mcg PO DAILY #30 caps 05/28/23 (Linzess) lactulose 10 gram/15 mL oral 30 ml PO BID PRN Constipation #946 06/18/23 solution mL zolpidem 10 mg tablet 10 mg PO HS #90 tabs 07/11/23 morphine 30 mg tablet,extended 30 mg PO Q12H #60 tabs 07/23/23 release (MS Contin) ondansetron 4 mg disintegrating 4 mg PO Q8H PRN nausea and 07/23/23 tablet vomiting #30 tabs doxycycline hyclate 100 mg capsule 100 mg PO BID 10 days #20 caps 07/26/23 Results & Data (ED) Vital Signs Vital Signs - 24 hr 08/01/23 13:48 08/01/23 15:43 08/01/23 15:43 Temperature 37 C Temperature Source Temporal Artery Scan Pulse Rate 93 H Pulse Rate [Apical] 94 H Pulse Rate from SpO2 Sensor Respiratory Rate 22 19 Respiratory Effort / Characteristics Labored Respiratory Depth Blood Pressure 147/97 H Blood Pressure [Right Arm] 150/103 H Blood Pressure Mean 113 Blood Pressure Mean [Right Arm] 118 Blood Pressure Position [Right Arm] Pulse Oximetry 95 97 96 Oxygen Delivery Method Room Air Room Air Room Air Sepsis Recent Fever Within 48 Hours No Sepsis New/Unexplained Change in Mental Status N/A Sepsis Action Taken by Nursing No Action Required 08/01/23 15:43 08/01/23 16:42 08/01/23 17:00 Temperature Temperature Source Pulse Rate 82 Pulse Rate [Apical] 88 Pulse Rate from SpO2 Sensor 82 Respiratory Rate 21 16 Respiratory Effort / Characteristics Respiratory Depth Normal Blood Pressure Blood Pressure [Right Arm] 134/96 Blood Pressure Mean Blood Pressure Mean [Right Arm] 108 Blood Pressure Position [Right Arm] Lying Pulse Oximetry 96 88 L 95 Oxygen Delivery Method Room Air Room Air Sepsis Recent Fever Within 48 Hours Sepsis New/Unexplained Change in Mental Status Sepsis Action Taken by Nursing 08/01/23 17:00 08/01/23 17:10 08/01/23 17:10 Temperature Temperature Source Pulse Rate 83 88 Pulse Rate [Apical] Pulse Rate from SpO2 Sensor 85 88 Respiratory Rate 16 12 Respiratory Effort / Characteristics Respiratory Depth Blood Pressure 134/96 134/96 Blood Pressure [Right Arm] Blood Pressure Mean 118 108 Blood Pressure Mean [Right Arm] Blood Pressure Position [Right Arm] Pulse Oximetry 90 89 L Oxygen Delivery Method Sepsis Recent Fever Within 48 Hours Sepsis New/Unexplained Change in Mental Status Sepsis Action Taken by Nursing Laboratory Data 08/01/23 14:11 08/01/23 14:11 Lab Results 08/01/23 08/01/23 08/01/23 Range/Units 14:05 14:11 15:45 WBC 9.94 (4.8-10.8) K/ul RBC 2.86 L (4.70-6.10) M/uL Hgb 8.8 L (14.0-18.0) g/dl Hct 27.3 L (42.0-52.0) % MCV 95.5 (80.0-100.0) fL MCH 30.8 (25.0-34.0) pg MCHC 32.2 (32.0-36.0) g/dL RDW Std Deviation 57.4 H (36.4-46.3) fL RDW Coeff of Marcelino 16.1 H (11.5-14.5) % Plt Count 147 (130-400) K/uL MPV 11.3 (9.4-12.4) fL Immature Gran % (Auto) 2.1 % Neut % (Auto) 83.3 % Lymph % (Auto) 5.2 % [place] % (Auto) 8.0 % Eos % (Auto) 1.2 % Baso % (Auto) 0.2 % Neut # (Auto) 8.27 H (1.40-6.50) K/uL Lymph # (Auto) 0.52 L (1.20-3.40) K/uL [place] # (Auto) 0.80 H (0.11-0.59) K/uL Eos # (Auto) 0.12 (0.00-0.50) K/uL Baso # (Auto) 0.02 (0.00-0.20) K/uL Immature Gran # (Auto) 0.21 H (0.01-0.20) K/uL Absolute Nucleated RBC 0.02 (0.00-0.12) K/uL Nucleated RBC % (auto) 0.2 % PT 10.3 (9.0-12.0) Seconds INR 0.9 (0.9-1.1) APTT 27 (21-31) Seconds PTT Ratio 1.0 Sodium 140 (136-145) mmol/L Potassium 3.7 (3.5-5.1) mmol/L Chloride 96 L (98-107) mmol/L Carbon Dioxide 31 (21-32) mmol/L Anion Gap 13 H (3-11) BUN 33 H (6-23) mg/dl Creatinine 7.21 H* (0.6-1.4) mg/dl Est Cr Clr Drug Dosing 11.5 ml/min Est GFR ( Amer) 8.7 ml/min Est GFR (Non-Af Amer) 7.5 ml/min BUN/Creatinine Ratio 4.6 L (10-20) Glucose 89 (70-99(Fasting)) mg/dl Calcium 8.5 L (8.6-10.3) mg/dl Phosphorus 3.8 (2.5-4.9) mg/dl Magnesium 2.1 (1.7-2.4) mg/dl Total Bilirubin 0.7 (0.2-1.0) mg/dl AST 24 (13-39) U/L ALT 22 (7-52) U/L Alkaline Phosphatase 61 (34-104) U/L Troponin I High Sens 309.1 H* (0-20) pg/ml Total Protein 6.4 (6.0-8.3) gm/dl Albumin 4.3 (3.4-5.0) gm/dl Globulin 2.1 L (2.5-4.0) gm/dl Albumin/Globulin Ratio 2.0 (0.9-2) Lipase 14 (11-82) U/L Urine Color Yellow Urine Appearance Clear (Clear) Urine pH 8.5 H (4.5-7.5) Ur Specific [place] 1.006 (1.000-1.030) Urine Protein 3+ H (Negative) Urine Glucose (UA) Negative (Negative) Urine Ketones Negative (Negative) Urine Blood Trace H (Negative) Urine Nitrite Negative (Negative) Urine Bilirubin Negative (Negative) Urine Urobilinogen Negative (Negative) Ur Leukocyte Esterase Negative (Negative) Urine WBC (Auto) 0-5 (0-5) /hpf Urine RBC (Auto) 0-2 (0-2) /hpf U Hyaline Cast (Auto) 0-2 (0-2) /lpf U Epithel Cells (Auto) 0-2 (0-2) /hpf Urine Bacteria (Auto) None Seen (None Seen) Adenovirus (PCR) Not Detected (NotDetected) B. pertussis DNA (PCR) Not Detected (NotDetected) B.parapertussis DNA PCR Not Detected (NotDetected) C. pneumoniae DNA (PCR) Not Detected (NotDetected) Coronavirus OC43 (PCR) Not Detected (NotDetected) Coronavirus HKU1 (PCR) Not Detected (NotDetected) Coronavirus 229E (PCR) Not Detected (NotDetected) SARS-CoV-2 (PCR) Not Detected (NotDetected) Coronavirus NL63 (PCR) Not Detected (NotDetected) Human Metapneumovir PCR Not Detected (NotDetected) Influenza Type A (PCR) Not Detected (NotDetected) Influenza Type B (PCR) Not Detected (NotDetected) M. pneumoniae (PCR) Not Detected (NotDetected) Parainfluenza 1 (PCR) Not Detected (NotDetected) Parainfluenza 2 (PCR) Not Detected (NotDetected) Parainfluenza 3 (PCR) Not Detected (NotDetected) Parainfluenza 4 (PCR) Not Detected (NotDetected) RSV (PCR) Not Detected (NotDetected) Entero/Rhino (PCR) Not Detected (NotDetected) 08/01/23 Range/Units 16:00 WBC (4.8-10.8) K/ul RBC (4.70-6.10) M/uL Hgb (14.0-18.0) g/dl Hct (42.0-52.0) % MCV (80.0-100.0) fL MCH (25.0-34.0) pg MCHC (32.0-36.0) g/dL RDW Std Deviation (36.4-46.3) fL RDW Coeff of Marcelino (11.5-14.5) % Plt Count (130-400) K/uL MPV (9.4-12.4) fL Immature Gran % (Auto) % Neut % (Auto) % Lymph % (Auto) % [place] % (Auto) % Eos % (Auto) % Baso % (Auto) % Neut # (Auto) (1.40-6.50) K/uL Lymph # (Auto) (1.20-3.40) K/uL [place] # (Auto) (0.11-0.59) K/uL Eos # (Auto) (0.00-0.50) K/uL Baso # (Auto) (0.00-0.20) K/uL Immature Gran # (Auto) (0.01-0.20) K/uL Absolute Nucleated RBC (0.00-0.12) K/uL Nucleated RBC % (auto) % PT (9.0-12.0) Seconds INR (0.9-1.1) APTT (21-31) Seconds PTT Ratio Sodium (136-145) mmol/L Potassium (3.5-5.1) mmol/L Chloride (98-107) mmol/L Carbon Dioxide (21-32) mmol/L Anion Gap (3-11) BUN (6-23) mg/dl Creatinine (0.6-1.4) mg/dl Est Cr Clr Drug Dosing ml/min Est GFR ( Amer) ml/min Est GFR (Non-Af Amer) ml/min BUN/Creatinine Ratio (10-20) Glucose (70-99(Fasting)) mg/dl Calcium (8.6-10.3) mg/dl Phosphorus (2.5-4.9) mg/dl Magnesium (1.7-2.4) mg/dl Total Bilirubin (0.2-1.0) mg/dl AST (13-39) U/L ALT (7-52) U/L Alkaline Phosphatase (34-104) U/L Troponin I High Sens 305.1 H* (0-20) pg/ml Total Protein (6.0-8.3) gm/dl Albumin (3.4-5.0) gm/dl Globulin (2.5-4.0) gm/dl Albumin/Globulin Ratio (0.9-2) Lipase (11-82) U/L Urine Color Urine Appearance (Clear) Urine pH (4.5-7.5) Ur Specific [place] (1.000-1.030) Urine Protein (Negative) Urine Glucose (UA) (Negative) Urine Ketones (Negative) Urine Blood (Negative) Urine Nitrite (Negative) Urine Bilirubin (Negative) Urine Urobilinogen (Negative) Ur Leukocyte Esterase (Negative) Urine WBC (Auto) (0-5) /hpf Urine RBC (Auto) (0-2) /hpf U Hyaline Cast (Auto) (0-2) /lpf U Epithel Cells (Auto) (0-2) /hpf Urine Bacteria (Auto) (None Seen) Adenovirus (PCR) (NotDetected) B. pertussis DNA (PCR) (NotDetected) B.parapertussis DNA PCR (NotDetected) C. pneumoniae DNA (PCR) (NotDetected) Coronavirus OC43 (PCR) (NotDetected) Coronavirus HKU1 (PCR) (NotDetected) Coronavirus 229E (PCR) (NotDetected) SARS-CoV-2 (PCR) (NotDetected) Coronavirus NL63 (PCR) (NotDetected) Human Metapneumovir PCR (NotDetected) Influenza Type A (PCR) (NotDetected) Influenza Type B (PCR) (NotDetected) M. pneumoniae (PCR) (NotDetected) Parainfluenza 1 (PCR) (NotDetected) Parainfluenza 2 (PCR) (NotDetected) Parainfluenza 3 (PCR) (NotDetected) Parainfluenza 4 (PCR) (NotDetected) RSV (PCR) (NotDetected) Entero/Rhino (PCR) (NotDetected) Administered Medications Amlodipine Besylate (Amlodipine Besylate 5 Mg Tab) 5 mg PO HS PAULA Stop: 08/31/23 20:59 Last Admin: 08/01/23 21:04 Dose: 5 mg Documented By: ROCIO Doxycycline Hyclate (Doxycycline Hyclate 100 Mg Cap) 100 mg PO BID PAULA Stop: 08/08/23 20:59 Last Admin: 08/01/23 21:02 Dose: 100 mg Documented By: ROCIO Metoprolol Tartrate (Metoprolol Tartrate 25 Mg Tab) 25 mg PO BID PAULA Stop: 08/31/23 20:59 Last Admin: 08/01/23 21:05 Dose: 25 mg Documented By: ROCIO Morphine Sulfate (Morphine Sulfate Cr 15 Mg Tabcr) 30 mg PO BID PAULA Stop: 08/31/23 20:59 Last Admin: 08/01/23 20:33 Dose: 30 mg Documented By: ROCIO Nitroglycerin (Nitroglycerin 2% Ointment 30gm Tube) 1 inch EXT Q6H PAULA Stop: 08/31/23 17:59 Last Admin: 08/01/23 18:38 Dose: 1 inch Documented By: AMERICO Pantoprazole Sodium (Pantoprazole 40 Mg Tab) 40 mg PO HS PAULA Stop: 08/31/23 20:59 Last Admin: 08/01/23 21:03 Dose: 40 mg Documented By: ROCIO Sevelamer Carbonate (Sevelamer Carbonate 800 Mg Tab) 2,400 mg PO TIDM PAULA Stop: 08/31/23 19:54 Last Admin: 08/01/23 20:58 Dose: Not Given Documented By: ROCIO Sodium Bicarbonate (Sodium Bicarbonate 650 Mg Tab) 1,300 mg PO BID PAULA Stop: 08/31/23 20:59 Last Admin: 08/01/23 21:03 Dose: 1,300 mg Documented By: ROCIO Tamsulosin HCl (Tamsulosin Hcl 0.4 Mg Cap) 0.4 mg PO BID PAULA Stop: 08/31/23 20:59 Last Admin: 08/01/23 21:04 Dose: 0.4 mg Documented By: ROCIO Discontinued Medications Aspirin (Aspirin Chew 324 Mg) 324 mg PO NOW STA Stop: 08/01/23 13:54 Last Admin: 08/01/23 14:10 Dose: 324 mg Documented By: LINDA Imaging Data Radiologist's Impression: Chest X-Ray 08/01/23 13:53 XR chest 1V not portable HISTORY: 58 years-old Male Chest pain, nonspecific COMPARISON: 06/07/2022 TECHNIQUE: PA view the chest FINDINGS: Cardiac silhouette is enlarged. Chronic interstitial coarsening. Mild right hemidiaphragmatic elevation. No pneumothorax, pleural effusion or overt pulmonary edema. Degenerative changes of the shoulders and spine. Right upper paratracheal opacity is again noted compatible with vascular pedicle. Calcified mediastinal and hilar lymph nodes compatible with prior granulomatous disease. There are a few scattered calcified granulomata at the left lung. IMPRESSION: 1. Cardiomegaly without acute process. 2. Prior granulomatous disease. ACT 112: Negative or not required by law. The above report was generated using voice recognition software. It may contain grammatical, syntax or spelling errors. Electronically signed by: Matt Steele M.D. 08/01/2023 2:51 PM Discharge Plan Visit Data Chief Complaint: Shortness of Breath/Dyspnea Stated Complaint: CHEST PAINS ED Provider: Xander Oden Discharge Problem: Chest pain, ESRD on dialysis, Elevated troponin Patient Disposition: Admitted As Inpatient Discharge Instructions Interventions: ED Discharge Assessment Last Done: 08/01/23 17:57
--- NOTE | 2023-08-01 16:53 | Electrocardiogram Report ---
Test Reason : Blood Pressure : / mmHG Vent. Rate : 096 BPM Atrial Rate : 096 BPM P-R Int : 154 ms QRS Dur : 088 ms QT Int : 404 ms P-R-T Axes : 046 034 081 degrees QTc Int : 510 ms Normal sinus rhythm with sinus arrhythmia Prolonged QT Abnormal ECG When compared with ECG of 15-SEP-2022 23:19, QT has lengthened Confirmed by Finn Pollack ([id number] on 08/01/2023 4:52:54 PM Referred By: Confirmed By:Federico Pollack
--- NOTE | 2023-08-01 17:38 | History & Physical Report ---
Date of Service August 01, 2023 Assessment & Plan (1) Chest pain: Plan: Elevated but stable troponin (suspected ACS event on Saturday/Saturday when he had his most severe episode) - normal previously also while on dialysis (June and September 2022) Concerning risk factors and history for NSTEMI/unstable angina, currently asymptomatic ASA 324mg PO given in ER, continue 81mg PO daily Start metoprolol tartrate 25mg PO BID Start atorvastatin 40mg PO daily Start nitroglycerin 1 inch paste (intermittent recurring symptoms at rest with high BP) Start heparin low dose IV with bolus overnight Lipid panel with AM labs, HbA1C not accurate in setting of dialysis and does not appear diabetic given random glucose measurements < 100 NPO after midnight TTE Consult cardiology for consideration of cardiac catheterization (2) Anemia in chronic kidney disease: Plan: In setting of ACS consider transfusion if continues to drop, however since currently asymptomatic will defer this Defer EPO to nephrology (3) ESRD on hemodialysis: Plan: Continue sodium biarb Continue Severlamer Consult nephrology (4) GERD (gastroesophageal reflux disease): Plan: Continue pantoprazole (5) Hypertension: Plan: Continue amlodipine lisinopril (6) Chronic constipation: Plan: Continue linaclotide (7) Psoriatic arthritis: Plan: Patent reports this is actually rheumatoid arthritis under Dr Richardson Continue chronic prednisone (8) Chronic prescription opiate use: Plan: Continue his usual morphine ER Plan VTE prophylaxis - IV heparin Diet - dialysis renal, NPO after midnight Disposition - admit to PCU Admission and Anticipated Discharge Date Admission Date: August 01, 2023 History of Present Illness Chief Complaint: Chest pain Primary Care Provider: Em Brannon DO Sesar Hernandez is a 58 year old male with ESRD on dialysis who presents to the ER with chest pain. He reports currently chest pain started on Saturday/Saturday with severity 10/10 after walking he sat down had sharp pain in chest, took deep breaths and relaxed and went away. Extreme pain lasted for 3 minutes and was just mild for a while after that. He noticed during the walk he was much more fatigued and short of breath than usual. He was doing well until Saturday he noticed it again but not as strong and not as sharp, just bothersome, unsure how long it lasted but was pain free in between episodes. Yesterday morning when he got up went for walk and after walk again he got pain again. This morning he didn't go for a walk, just went to dialysis and it started hurting a bit at dialysis (which he completed), when he go home after dialysis while getting garbage outside it started again, went to sit down and resolved, currently he is pain free. Associated trying to catch his breath and nausea (although not abnormal for him). No diaphoresis. No radiation. He is on doxycycline chronically due to prior osteomyelitis in his left foot (subsequently amputated), Currently on doxycycline 100mg PO BID since last Saturday as his right stump has a slight open area after knocking it going up steps and stumbling, no surrounding cellulitis. No fever or chills. Allergies Allergy/AdvReac Type Severity Reaction Status Date / Time finasteride Allergy Intermediate Hives Verified 07/26/23 09:00 hydrocodone Allergy Intermediate Rash Verified 07/26/23 09:00 Penicillins Allergy Intermediate RASH, Verified 07/26/23 09:00 HIVES, ITCHING losartan AdvReac Nausea Verified 07/26/23 09:00 Home Medications Medication Instructions Recorded Confirmed Type acetaminophen 500 mg tablet 1,000 mg PO TID PRN Pain 08/12/18 08/01/23 History (Tylenol Extra Strength) Prosthetic supplies #1 ea 12/01/20 03/26/23 Rx RT silicone partial foot prostehsis #1 ea 07/01/21 03/26/23 Rx R hand prosthesis #1 ea 10/10/21 03/26/23 Rx clobetasol 0.05 % topical cream 1 applic topical BID PRN AFFECTED 06/05/22 08/01/23 History AREA NEEDED sevelamer carbonate 800 mg tablet 2,400 mg PO TIDM 06/09/22 08/01/23 History (Renvela) sodium bicarbonate 650 mg tablet 1,300 mg PO BID 06/09/22 08/01/23 History folic acid 400 mcg tablet 400 mcg PO QAM #30 tabs 06/11/22 08/01/23 Rx Locking Liners, Liner Liners, 1 #1 ea 06/26/22 03/26/23 Rx ply spacer socks R partial foot prosthesis with #1 ea 06/26/22 03/26/23 Rx arch support Repair L BKA prosthesis #1 ea 06/26/22 03/26/23 Rx Protective boot, R foot #1 ea 07/24/22 03/26/23 Rx amlodipine 5 mg tablet 5 mg PO HS #90 tabs 08/17/22 08/01/23 Rx tamsulosin 0.4 mg capsule 0.4 mg PO BID #180 caps 09/03/22 08/01/23 Rx R Toe off carbon fiber AFO #1 ea 09/13/22 03/26/23 Rx sevelamer carbonate 800 mg tablet 800 mg PO .WITH SNACKS 09/15/22 08/01/23 History lisinopril 5 mg tablet 5 mg PO QAM 09/16/22 08/01/23 History calcium carbonate (Tums) 200 mg PO BID PRN Heartburn 09/25/22 08/01/23 History patiromer calcium sorbitex 16.8 16.8 g PO DAILY #30 ea 10/23/22 08/01/23 Rx gram oral powder packet (Veltassa) Wheelchair (Manual) (Manual #1 ea 11/12/22 03/26/23 Rx Wheelchair) promethazine 25 mg tablet 25 mg PO TID PRN nausea and 04/16/23 08/01/23 Rx vomiting #20 tabs ipratropium bromide 21 mcg (0.03 2 spray intranasal BID #90 mL 04/19/23 08/01/23 Rx %) nasal spray pantoprazole 40 mg tablet,delayed 40 mg PO HS 05/20/23 08/01/23 History release linaclotide 145 mcg capsule 145 mcg PO DAILY #30 caps 05/28/23 08/01/23 Rx (Linzess) lactulose 10 gram/15 mL oral 30 ml PO BID PRN Constipation #946 06/18/23 08/01/23 Rx solution mL zolpidem 10 mg tablet 10 mg PO HS #90 tabs 07/11/23 08/01/23 Rx morphine 30 mg tablet,extended 30 mg PO Q12H #60 tabs 07/23/23 08/01/23 Rx release (MS Contin) ondansetron 4 mg disintegrating 4 mg PO Q8H PRN nausea and 07/23/23 08/01/23 Rx tablet vomiting #30 tabs doxycycline hyclate 100 mg capsule 100 mg PO BID 10 days #20 caps 07/26/23 08/01/23 Rx prednisone 5 mg tablet 10 mg PO DAILY 08/01/23 08/01/23 History Past Med/Surg History Medical History (Updated 08/02/23 @ 07:02 by Gualberto Barlow MD) Nausea and vomiting after administration of anesthetic agent History of anesthesia reaction Gets very nervous with a lot of nausea due to past experiences with procedures/ losing limbs, etc, > asks for something to help History of COVID-2019 History of blood transfusion 01/2020 History of cardioversion 10/2019 [facility] ESRD on hemodialysis [facility] in [place] > / OR /Saturday Abscess of right foot hx Infection of amputation site of lower extremity has at present on doxy to treat Scrotal swelling resolved Chronic pain Urinary incontinence Atrial fibrillation hx- cardioversion; 10/2019; no longer follows w/ cardio Peripheral arterial disease Avascular necrosis of bones of both hips Coronary artery disease code entered 02/04/[address] Brannon per EMR, office note from that date was cancelled. Remote 2017 [facility] cardiology records list nonobstructive CAD History of renal cell cancer (~2014) 2016 ALBA (nonalcoholic steatohepatitis) GERD (gastroesophageal reflux disease) Diverticulosis Dyslipidemia AV fistula LEFT ARM Hypertension FSGS (focal segmental glomerulosclerosis) Diabetes mellitus pt denies, no meds or treatment Surgical History (Updated 07/26/23 @ 09:04 by Blank Rodriguez LPN) History of prostate surgery 06/2023 History of hydrocelectomy (12/18/22) L side Status post PICC central line placement removed S/P excisional debridement 06/08/22 Dr. Neo Goodwin at [facility]- Right foot excision/exostectomy osteomyelitis of the talus, Tenosynovectomy of the flexor hallucis longus tendon, Partial resection flexor hallucis longus tendon, Excision/exostectomy osteomyelitis of the calcaneus, Debridement 3 cm diameter x 0.4 cm depth foot ulcer, Evacuation abscess, dorsal and medial right foot. 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 GETA. Grade 1 view. Escobar 2. 8.0 ETT. No issues. H/O hand surgery (~09/2018) Hilda 10/02/18 S/P arteriovenous (AV) fistula repair MULTIPLE > current in left arm Status post insertion of hemodialysis catheter +MULTIPLE REVISIONS Hx of abdominal surgery PERITONEAL CATHETER INSERTION + REVISION History of incisional hernia repair History of nephrectomy, left (2015) Due to Renal Cell Cancer Family History Brother Liver cirrhosis secondary to ALBA Family history of diabetes mellitus Father Brain tumor Coronary heart disease Hypertension Family history of diabetes mellitus Myocardial infarction Mother Liver cancer Hypertension Family history of diabetes mellitus Breast cancer Grandmother (Maternal) Stroke Sister Family history of diabetes mellitus Ovarian cancer Grandfather (Maternal) Family hx of colon cancer Colorectal cancer Prostate cancer Grandfather (Paternal) Prostate cancer Social History Smoking Status: Never smoker Tobacco Type: Smokeless Tobacco (Dip or Chew) Second Hand Exposure: No; Do You Dip or Chew Tobacco: Yes (advised npo status); Hx Alcohol Use: No Hx Substance Use: No Preferred Language: Estonian Communication Ability: Effective Visual Impairment: No Limitations Hearing Ability: Normal Hanging Flags Decorator Required: No Beliefs That Will Affect Care: None marital status: Current Living Situation: Alone current occupational status: disabled 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[employer], 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, 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 How many Children do You have: 2 Other Information That Helps Us Care for You: No other: lives in [place] Feels Safe at Home: Yes Safety Concerns: Feels Safe At This Time Childhood Exposure to Second-Hand Smoke: Yes Diet: regular Diet Comment: regular caffeine: Yes during the past year weight has: remained stable Dental Care, Regularly: Yes Physical Activity Frequency: Daily Physical Activity Frequency Comment: walking Seatbelt Use: always Sunscreen Use: No Assistive Devices: Glasses and Prosthesis Review of Systems Review of Systems: All systems reviewed & are unremarkable except as noted in HPI & below Physical Exam Constitutional: WD/WN, vitals as above Eyes: PERRL, conjunctivae normal, anicteric sclerae ENMT: external ear and nose normal, oropharynx normal Neck: trachea midline, no thyromegaly Respiratory: normal respiratory effort, lungs clear to auscultation Cardiovascular: Rate/Rhythm: regular rate and regular rhythm Heart Sounds: + murmur (SCOTT LUSB) Extremities: normal capillary refill; no calf tenderness and no pedal edema Gastrointestinal (Abdomen): normal bowel sounds, soft, nontender, no hepatosplenomegaly Skin: no rashes, warm and dry Neurologic: moves all extremities (multiple limb amputations noted) and awake; not confused Psychiatric: A+Ox3, euthymic affect Results & Data Results & Data Vital Signs (Past 12 Hours) Vital Signs Temp Pulse Pulse Resp BP BP Pulse Ox 08/01/23 17:00 88 16 134/96 95 08/01/23 15:43 96 08/01/23 15:43 94 H 19 150/103 H 96 08/01/23 15:43 97 08/01/23 13:48 37 C 93 H 22 147/97 H 95 O2 Del Method 08/01/23 17:00 Room Air 08/01/23 15:43 Room Air 08/01/23 15:43 Room Air 08/01/23 15:43 Room Air 08/01/23 13:48 Room Air Laboratory Results Abnormal lab results 08/01/23 08/01/23 08/01/23 Range/Units 14:11 15:45 16:00 RBC 2.86 L (4.70-6.10) M/uL Hgb 8.8 L (14.0-18.0) g/dl Hct 27.3 L (42.0-52.0) % RDW Std Deviation 57.4 H (36.4-46.3) fL RDW Coeff of Marcelino 16.1 H (11.5-14.5) % Neut # (Auto) 8.27 H (1.40-6.50) K/uL Lymph # (Auto) 0.52 L (1.20-3.40) K/uL Slope # (Auto) 0.80 H (0.11-0.59) K/uL Immature Gran # (Auto) 0.21 H (0.01-0.20) K/uL Chloride 96 L (98-107) mmol/L Anion Gap 13 H (3-11) BUN 33 H (6-23) mg/dl Creatinine 7.21 H* (0.6-1.4) mg/dl BUN/Creatinine Ratio 4.6 L (10-20) Calcium 8.5 L (8.6-10.3) mg/dl Troponin I High Sens 309.1 H* 305.1 H* (0-20) pg/ml Globulin 2.1 L (2.5-4.0) gm/dl Urine pH 8.5 H (4.5-7.5) Urine Protein 3+ H (Negative) Urine Blood Trace H (Negative) Diagnostic Findings XR chest 1V not portable HISTORY: 58 years-old Male Chest pain, nonspecific COMPARISON: 06/07/2022 TECHNIQUE: PA view the chest FINDINGS: Cardiac silhouette is enlarged. Chronic interstitial coarsening. Mild right hemidiaphragmatic elevation. No pneumothorax, pleural effusion or overt pulmon hernan edema. Degenerative changes of the shoulders and spine. Right upper paratracheal opacity is again noted compatible with vascular pedicle. Calcified mediastinal and hilar lymph nodes compatible with prior granulomatous disease. There are a few scattered calcified granulomata at the left lung. IMPRESSION: 1. Cardiomegaly without acute process. 2. Prior granulomatous disease. Medications Administered ER medications given: Aspirin 324 mg p.o. ECG Rate (beats per minute): 96 Rhythm: sinus with SA Findings: + prolonged QT (QTc 510ms) Comparison ECG Date: from (September 15, 2022) Change: no significant change Code Status & VTE Plan Code Status Full VTE Prophylaxis Plan VTE Prophylaxis will be ordered: Yes PG Care Time/CCT Total # of Minutes Spent Total Time Spent with Patient: Total time spent is greater than 50% in coordination of care (as documented) at patient's floor/unit and/or counseling patient: Coding Level of Care Code 66473 INT INP/OBS CARE 3/75MIN Diagnoses Chest pain R07.9 Anemia in chronic kidney disease N18.9; D63.1 ESRD on hemodialysis N18.6; Z99.2 GERD (gastroesophageal reflux disease) K21.9 Hypertension I10 Chronic constipation K59.09 Psoriatic arthritis L40.50 Chronic prescription opiate use Z79.891
[2023-08-01] MEDS: NITROGLYCERIN 2% OINTMENT 30GM TUBE EXT SCH (18:38)
[2023-08-01] MEDS ORDERED: SEVELAMER CARBONATE 800 MG TAB PO PRN (20:00)
[2023-08-01] MEDS: MoRPHine SULFATE CR 15 MG TABCR PO SCH (20:33)
[2023-08-01] MEDS: SEVELAMER CARBONATE 800 MG TAB PO SCH (20:58)
[2023-08-01] MEDS: DOXYCYCLINE HYCLATE 100 MG CAP PO SCH (21:02)
[2023-08-01] MEDS: PANTOprazole 40 MG TAB PO SCH (21:03)
[2023-08-01] MEDS: SODIUM BICARBONATE 650 MG TAB PO SCH (21:03)
[2023-08-01] MEDS: TAMSULOSIN HCL 0.4 MG CAP PO SCH (21:04)
[2023-08-01] MEDS: amLODIPine BESYLATE 5 MG TAB PO SCH (21:04)
[2023-08-01] MEDS: METOPROLOL TARTRATE 25 MG TAB PO SCH (21:05)
[2023-08-01] MEDS: ZOLPIDEM TARTRATE 10 MG TAB PO SCH (21:54)
[2023-08-01] MEDS: HEPARIN SOD (PORCINE) 1000 UNIT/ML IV ONE (21:54)
[2023-08-01] MEDS: HEPARIN SODIUM/DEXTROSE 25,000 UNITS/500 ML BAG IV SCH (21:55)
[2023-08-01] MEDS: Heparin IV Adult Wt-Based Low-Dose w/ INITIAL Bolus Protocol IV STA (22:26)
[2023-08-01] MEDS ORDERED: Nursing to Pharmacy Communication SCH (22:30)
[2023-08-02 05:09] LABS: Basophils # (auto) 0.02 K/uL (0.00-0.20); Basophils % (auto) 0.3 %; Eosinophils # (auto) 0.09 K/uL (0.00-0.50); Eosinophils % (auto) 1.2 %; Hematocrit (blood only) 24.6 % (42.0-52.0); Hemoglobin 7.9 g/dl (14.0-18.0); Immature Granulocytes # (auto) 0.25 K/uL (0.01-0.20); Immature Granulocytes % (auto) 3.3 %; Lymphocytes # (auto) 1.03 K/uL (1.20-3.40); Lymphocytes % (auto) 13.6 %; Mean Corpuscular Hemoglobin 31.5 pg (25.0-34.0); Mean Corpuscular Hgb Conc 32.1 g/dL (32.0-36.0); Mean Platelet Volume 10.6 fL (9.4-12.4); Monocytes # (auto) 0.59 K/uL (0.11-0.59); Monocytes % (auto) 7.8 %; Neutrophils # (auto) 5.62 K/uL (1.40-6.50); Neutrophils % (auto) 73.8 %; Platelet Count 135 K/uL (130-400); RDW Coefficient of Variation 16.4 % (11.5-14.5); RDW Standard Deviation 58.8 fL (36.4-46.3); Red Blood Count 2.51 M/uL (4.70-6.10)
[2023-08-02 05:41] LABS: BUN Creatinine Ratio 4.5 (10-20); Calcium 8.1 mg/dl (8.6-10.3); Chol HDL Ratio 3.6 (0-5); Creatinine Clr Calc Pharmacy 9.6 ml/min; Potassium 3.8 mmol/L (3.5-5.1); Troponin I High Sensitivity 333.5 pg/ml (0-20)
[2023-08-02 05:48] LABS: RBC Morphology Unremarkable
[2023-08-02] MEDS: PATIROMER CALCIUM SORBITEX 8.4 GM PACK PO SCH (05:56)
[2023-08-02] MEDS ORDERED: PATIROMER CALCIUM SORBITEX 8.4 GM PACK PO SCH ×2 (09:00→11:00)
[2023-08-02] MEDS: FOLIC ACID 400 MCG TAB PO SCH (09:20)
[2023-08-02] MEDS: LINACLOTIDE 145 MCG CAPSULE PO SCH (09:21)
[2023-08-02] MEDS: lisinopril 5 MG TAB PO SCH (09:21)
[2023-08-02] MEDS: predniSONE 10 MG TABLET PO SCH (09:21)
[2023-08-02] MEDS: ASPIRIN 81 MG ECTAB PO SCH (09:25)
[2023-08-02] MEDS: ATORVASTATIN 40 MG TAB PO SCH (09:25)
--- NOTE | 2023-08-02 13:52 | Nephrology Consultation ---
Date of Consultation August 02, 2023 Assessment & Plan (1) ESRD on dialysis: Encouraged that he may ultimately benefit from additional dialysis. Sesar insists that he is only willing to continue twice weekly. Volume status is acceptable. Electrolytes controlled. LUE AVF functioning well. Outpatient Rx: TT 2 hours, 180 optiflux, 2K 2.5Ca, 250/400, EDW 82 kg. (2) Anemia in chronic kidney disease: Hgb 9.3 on 07/29 at HD. Maintained on Micera as outpatient. Ferritin >1000 chr onically. No reported signs of blood loss. Epogen 32697 units provided now. (3) Hyperphosphatemia: Maintained on Auryxia as outpatient. Unable to tolerate other binders in the past. Low phosphorus diet. Plan Cardiology consultation pending. r/o ACS. History of Present Illness Reason for Consultation: ESRD on HD Requesting Physician: Kimberly Felix MD Attending Physician: Kimberly Felix MD History of Present Illness Mr. 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 HE has been on HD for several years. Unfortunately, Sesar developed severe sepsis due to gram negative peritonitis while on PD in the past. He required cardioversion for hemodynamically unstable Afib during the admission. He was also resuscitated from cardiac arrest. Sesar suffered severe distal ischemia leading to the loss of several digits during this time. He also underwent BKA for PAD. Sesar is now maintained on IHD at [facility] in [place] under the care of Dr. Quijano. He remains non-oliguric. He dialyzes twice weekly on a TT schedule. He completed HD yesterday without complications. Unfortunately, Sesar has been experiencing concerning chest pain. He developed an episode of severe substernal chest pain on Saturday after a long walk. Symptoms resolved in minutes. There was associated shortness of breath. He reports progressive exertional symptoms of dyspnea and twinges of chest pain which have been increasing in intensity since. He was particularly bothered due to limited activity tolerance with the symptoms. Sesar was placed on a heparin gtt with nitropaste applied overnight. He has not experienced symptoms since admission. He had no complaints or concerns during my assessment this AM. Allergies Allergy/AdvReac Type Severity Reaction Status Date / Time finasteride Allergy Intermediate Hives Verified 07/26/23 09:00 hydrocodone Allergy Intermediate Rash Verified 07/26/23 09:00 Penicillins Allergy Intermediate RASH, Verified 07/26/23 09:00 HIVES, ITCHING losartan AdvReac Nausea Verified 07/26/23 09:00 Home Medications Medication Instructions Recorded Confirmed Type acetaminophen 500 mg tablet 1,000 mg PO TID PRN Pain 08/12/18 08/01/23 History (Tylenol Extra Strength) Prosthetic supplies #1 ea 12/01/20 03/26/23 Rx RT silicone partial foot prostehsis #1 ea 07/01/21 03/26/23 Rx R hand prosthesis #1 ea 10/10/21 03/26/23 Rx clobetasol 0.05 % topical cream 1 applic topical BID PRN AFFECTED 06/05/22 08/01/23 History AREA NEEDED sevelamer carbonate 800 mg tablet 2,400 mg PO TIDM 06/09/22 08/01/23 History (Renvela) sodium bicarbonate 650 mg tablet 1,300 mg PO BID 06/09/22 08/01/23 History folic acid 400 mcg tablet 400 mcg PO QAM #30 tabs 06/11/22 08/01/23 Rx Locking Liners, Liner Liners, 1 #1 ea 06/26/22 03/26/23 Rx ply spacer socks R partial foot prosthesis with #1 ea 06/26/22 03/26/23 Rx arch support Repair L BKA prosthesis #1 ea 06/26/22 03/26/23 Rx Protective boot, R foot #1 ea 07/24/22 03/26/23 Rx amlodipine 5 mg tablet 5 mg PO HS #90 tabs 08/17/22 08/01/23 Rx tamsulosin 0.4 mg capsule 0.4 mg PO BID #180 caps 09/03/22 08/01/23 Rx R Toe off carbon fiber AFO #1 ea 09/13/22 03/26/23 Rx sevelamer carbonate 800 mg tablet 800 mg PO .WITH SNACKS 09/15/22 08/01/23 History lisinopril 5 mg tablet 5 mg PO QAM 09/16/22 08/01/23 History calcium carbonate (Tums) 200 mg PO BID PRN Heartburn 09/25/22 08/01/23 History patiromer calcium sorbitex 16.8 16.8 g PO DAILY #30 ea 10/23/22 08/01/23 Rx gram oral powder packet (Veltassa) Wheelchair (Manual) (Manual #1 ea 11/12/22 03/26/23 Rx Wheelchair) promethazine 25 mg tablet 25 mg PO TID PRN nausea and 04/16/23 08/01/23 Rx vomiting #20 tabs ipratropium bromide 21 mcg (0.03 2 spray intranasal BID #90 mL 04/19/23 08/01/23 Rx %) nasal spray pantoprazole 40 mg tablet,delayed 40 mg PO HS 05/20/23 08/01/23 History release linaclotide 145 mcg capsule 145 mcg PO DAILY #30 caps 05/28/23 08/01/23 Rx (Linzess) lactulose 10 gram/15 mL oral 30 ml PO BID PRN Constipation #946 06/18/23 08/01/23 Rx solution mL zolpidem 10 mg tablet 10 mg PO HS #90 tabs 07/11/23 08/01/23 Rx morphine 30 mg tablet,extended 30 mg PO Q12H #60 tabs 07/23/23 08/01/23 Rx release (MS Contin) ondansetron 4 mg disintegrating 4 mg PO Q8H PRN nausea and 07/23/23 08/01/23 Rx tablet vomiting #30 tabs doxycycline hyclate 100 mg capsule 100 mg PO BID 10 days #20 caps 07/26/23 08/01/23 Rx prednisone 5 mg tablet 10 mg PO DAILY 08/01/23 08/01/23 History Patient History Medical History (Updated 08/02/23 @ 07:02 by Gualberto Barlow MD) Nausea and vomiting after administration of anesthetic agent History of anesthesia reaction Gets very nervous with a lot of nausea due to past experiences with procedures/ losing limbs, etc, > asks for something to help History of COVID-2019 History of blood transfusion 01/2020 History of cardioversion 10/2019 [facility] ESRD on hemodialysis [facility] in [place] > Tues/Th OR /Saturday Abscess of right foot hx Infection of amputation site of lower extremity has at present on doxy to treat Scrotal swelling resolved Chronic pain Urinary incontinence Atrial fibrillation hx- cardioversion; 10/2019; no longer follows w/ cardio Peripheral arterial disease Avascular necrosis of bones of both hips Coronary artery disease code entered 02/04/[address] Brannon per EMR, office note from that date was cancelled. Remote 2017 [facility] cardiology records list nonobstructive CAD History of renal cell cancer (~2014) 2015 ALBA (nonalcoholic steatohepatitis) GERD (gastroesophageal reflux disease) Diverticulosis Dyslipidemia AV fistula LEFT ARM Hypertension FSGS (focal segmental glomerulosclerosis) Diabetes mellitus pt denies, no meds or treatment Surgical History (Updated 07/26/23 @ 09:04 by Blank Rodriguez LPN) History of prostate surgery 06/2023 History of hydrocelectomy (12/18/22) L side Status post PICC central line placement removed S/P excisional debridement 06/08/22 Dr. Neo Goodwin at [facility]- Right foot excision/exostectomy osteomyelitis of the talus, Tenosynovectomy of the flexor hallucis longus tendon, Partial resection flexor hallucis longus tendon, Excision/exostectomy osteomyelitis of the calcaneus, Debridement 3 cm diameter x 0.4 cm depth foot ulcer, Evacuation abscess, dorsal and medial right foot. Acquired absence of right finger(s) (03/18/20) 2n-4th digits Acquired absence of right foot (03/18/20) partial amputation, secondary to dry gangrene, [facility] [place] Acquired absence of left leg below knee (01/11/20) 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) 2nd toe, d/t embolism Hx of umbilical hernia repair (02/2019) H/O hernia repair (~10/21/17) 10/20/2017. GETA. Grade 1 view. Escobar 2. 8.0 ETT. No issues. H/O hand surgery (~09/2018) Hilda 10/02/18 S/P arteriovenous (AV) fistula repair MULTIPLE > current in left arm Status post insertion of hemodialysis catheter +MULTIPLE REVISIONS Hx of abdominal surgery PERITONEAL CATHETER INSERTION + REVISION History of incisional hernia repair History of nephrectomy, left (2015) Due to Renal Cell Cancer Family History Brother Liver cirrhosis secondary to ALBA Family history of diabetes mellitus Father Brain tumor Coronary heart disease Hypertension Family history of diabetes mellitus Myocardial infarction Mother Liver cancer Hypertension Family history of diabetes mellitus Breast cancer Grandmother (Maternal) Stroke Sister Family history of diabetes mellitus Ovarian cancer Grandfather (Maternal) Family hx of colon cancer Colorectal cancer Prostate cancer Grandfather (Paternal) Prostate cancer Social History Smoking Status: Never smoker Tobacco Type: Smokeless Tobacco (Dip or Chew) Second Hand Exposure: No; Do You Dip or Chew Tobacco: Yes (advised npo status); Hx Alcohol Use: No Hx Substance Use: No Preferred Language: Faroese Communication Ability: Effective Visual Impairment: No Limitations Hearing Ability: Normal Economic Historian Required: No Beliefs That Will Affect Care: None marital status: Current Living Situation: Alone current occupational status: disabled 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[employer], 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, [employer] How many Children do You have: 2 Other Information That Helps Us Care for You: No other: lives in [place] Feels Safe at Home: Yes Safety Concerns: Feels Safe At This Time Childhood Exposure to Second-Hand Smoke: Yes Diet: regular Diet Comment: regular caffeine: Yes during the past year weight has: remained stable Dental Care, Regularly: Yes Physical Activity Frequency: Daily Physical Activity Frequency Comment: walking Seatbelt Use: always Sunscreen Use: No Assistive Devices: Glasses and Prosthesis Review of Systems Review of Systems: All systems reviewed & are unremarkable except as noted in HPI & below Physical Exam Constitutional: well developed; no acute distress Eyes: + anicteric sclerae; no corneal abnormal ity ENMT: Mouth: no oral mucosal abnormality and oral mucous membranes not dry Neck: normal visual inspection, trachea midline and + thick neck Respiratory: normal respiratory effort Auscultation: lungs clear to auscultation bilaterally Cardiovascular: Rate/Rhythm: regular rate Heart Sounds: normal S1, normal S2 and + murmur Extremities: + AV fistula (L forearm AVG); no edema Musculoskeletal: Extremities: no cyanosis and no clubbing Skin: normal turgor; no jaundice Neurologic: Motor/Sensory: no tremor and no asterixis Psychiatric: Orientation: alert and oriented x 3 Results & Data Vital Signs (Past 12 Hours) Vital Signs Temp Pulse Pulse Resp BP Pulse Ox O2 Del Method 08/02/23 11:39 36.9 C 66 18 115/78 94 Room Air 08/02/23 07:40 36.8 C 70 18 145/96 H 94 Room Air 08/02/23 07:00 70 08/02/23 03:45 37.5 C 80 18 141/80 H 93 Room Air Laboratory Results Laboratory Results - last 24 hr 08/01/23 08/01/23 08/01/23 14:05 14:11 15:45 WBC 9.94 RBC 2.86 L Hgb 8.8 L Hct 27.3 L MCV 95.5 MCH 30.8 MCHC 32.2 RDW Std Deviation 57.4 H RDW Coeff of Marcelino 16.1 H Plt Count 147 MPV 11.3 Immature Gran % (Auto) 2.1 Neut % (Auto) 83.3 Lymph % (Auto) 5.2 Merrick % (Auto) 8.0 Eos % (Auto) 1.2 Baso % (Auto) 0.2 Neut # (Auto) 8.27 H Lymph # (Auto) 0.52 L Merrick # (Auto) 0.80 H Eos # (Auto) 0.12 Baso # (Auto) 0.02 Immature Gran # (Auto) 0.21 H Absolute Nucleated RBC 0.02 Nucleated RBC % (auto) 0.2 RBC Morphology PT 10.3 INR 0.9 APTT 27 PTT Ratio 1.0 Heparin Anti-Xa, Unfract Sodium 140 Potassium 3.7 Chloride 96 L Carbon Dioxide 31 Anion Gap 13 H BUN 33 H Creatinine 7.21 H* Est Cr Clr Drug Dosing 11.5 Est GFR ( Amer) 8.7 Est GFR (Non-Af Amer) 7.5 BUN/Creatinine Ratio 4.6 L Glucose 89 Calcium 8.5 L Phosphorus 3.8 Magnesium 2.1 Total Bilirubin 0.7 AST 24 ALT 22 Alkaline Phosphatase 61 Troponin I High Sens 309.1 H* Total Protein 6.4 Albumin 4.3 Globulin 2.1 L Albumin/Globulin Ratio 2.0 Triglycerides Cholesterol LDL Cholesterol, Calc VLDL Cholesterol, Calc HDL Cholesterol Cholesterol/HDL Ratio Lipase 14 Urine Color Yellow Urine Appearance Clear Urine pH 8.5 H Ur Specific Benton 1.006 Urine Protein 3+ H Urine Glucose (UA) Negative Urine Ketones Negative Urine Blood Trace H Urine Nitrite Negative Urine Bilirubin Negative Urine Urobilinogen Negative Ur Leukocyte Esterase Negative Urine WBC (Auto) 0-5 Urine RBC (Auto) 0-2 U Hyaline Cast (Auto) 0-2 U Epithel Cells (Auto) 0-2 Urine Bacteria (Auto) None Seen Adenovirus (PCR) Not Detected B. pertussis DNA (PCR) Not Detected B.parapertussis DNA PCR Not Detected C. pneumoniae DNA (PCR) Not Detected Coronavirus OC43 (PCR) Not Detected Coronavirus HKU1 (PCR) Not Detected Coronavirus 229E (PCR) Not Detected SARS-CoV-2 (PCR) Not Detected Coronavirus NL63 (PCR) Not Detected Human Metapneumovir PCR Not Detected Influenza Type A (PCR) Not Detected Influenza Type B (PCR) Not Detected M. pneumoniae (PCR) Not Detected Parainfluenza 1 (PCR) Not Detected Parainfluenza 2 (PCR) Not Detected Parainfluenza 3 (PCR) Not Detected Parainfluenza 4 (PCR) Not Detected RSV (PCR) Not Detected Entero/Rhino (PCR) Not Detected 08/01/23 08/01/23 08/02/23 16:00 22:40 04:05 WBC 7.60 RBC 2.51 L Hgb 7.9 L Hct 24.6 L MCV 98.0 MCH 31.5 MCHC 32.1 RDW Std Deviation 58.8 H RDW Coeff of Marcelino 16.4 H Plt Count 135 MPV 10.6 Immature Gran % (Auto) 3.3 Neut % (Auto) 73.8 Lymph % (Auto) 13.6 Merrick % (Auto) 7.8 Eos % (Auto) 1.2 Baso % (Auto) 0.3 Neut # (Auto) 5.62 Lymph # (Auto) 1.03 L Merrick # (Auto) 0.59 Eos # (Auto) 0.09 Baso # (Auto) 0.02 Immature Gran # (Auto) 0.25 H Absolute Nucleated RBC Nucleated RBC % (auto) RBC Morphology Unremarkable PT INR APTT PTT Ratio Heparin Anti-Xa, Unfract 0.30 Sodium 140 Potassium 3.8 Chloride 97 L Carbon Dioxide 33 H Anion Gap 10 BUN 39 H Creatinine 8.65 H* D Est Cr Clr Drug Dosing 9.6 Est GFR ( Amer) 7.0 Est GFR (Non-Af Amer) 6.0 BUN/Creatinine Ratio 4.5 L Glucose 91 Calcium 8.1 L Phosphorus Magnesium Total Bilirubin AST ALT Alkaline Phosphatase Troponin I High Sens 305.1 H* 296.3 H* 333.5 H* Total Protein Albumin Globulin Albumin/Globulin Ratio Triglycerides 126 Cholesterol 153 LDL Cholesterol, Calc 86 VLDL Cholesterol, Calc 25 HDL Cholesterol 42 Cholesterol/HDL Ratio 3.6 Lipase Urine Color Urine Appearance Urine pH Ur Specific Benton Urine Protein Urine Glucose (UA) Urine Ketones Urine Blood Urine Nitrite Urine Bilirubin Urine Urobilinogen Ur Leukocyte Esterase Urine WBC (Auto) Urine RBC (Auto) U Hyaline Cast (Auto) U Epithel Cells (Auto) Urine Bacteria (Auto) Adenovirus (PCR) B. pertussis DNA (PCR) B.parapertussis DNA PCR C. pneumoniae DNA (PCR) Coronavirus OC43 (PCR) Coronavirus HKU1 (PCR) Coronavirus 229E (PCR) SARS-CoV-2 (PCR) Coronavirus NL63 (PCR) Human Metapneumovir PCR Influenza Type A (PCR) Influenza Type B (PCR) M. pneumoniae (PCR) Parainfluenza 1 (PCR) Parainfluenza 2 (PCR) Parainfluenza 3 (PCR) Parainfluenza 4 (PCR) RSV (PCR) Entero/Rhino (PCR) 08/02/23 09:54 WBC RBC Hgb Hct MCV MCH MCHC RDW Std Deviation RDW Coeff of Marcelino Plt Count MPV Immature Gran % (Auto) Neut % (Auto) Lymph % (Auto) Merrick % (Auto) Eos % (Auto) Baso % (Auto) Neut # (Auto) Lymph # (Auto) Merrick # (Auto) Eos # (Auto) Baso # (Auto) Immature Gran # (Auto) Absolute Nucleated RBC Nucleated RBC % (auto) RBC Morphology PT INR APTT PTT Ratio Heparin Anti-Xa, Unfract Sodium Potassium Chloride Carbon Dioxide Anion Gap BUN Creatinine Est Cr Clr Drug Dosing Est GFR ( Amer) Est GFR (Non-Af Amer) BUN/Creatinine Ratio Glucose Calcium Phosphorus Magnesium Total Bilirubin AST ALT Alkaline Phosphatase Troponin I High Sens 290.4 H* Total Protein Albumin Globulin Albumin/Globulin Ratio Triglycerides Cholesterol LDL Cholesterol, Calc VLDL Cholesterol, Calc HDL Cholesterol Cholesterol/HDL Ratio Lipase Urine Color Urine Appearance Urine pH Ur Specific Benton Urine Protein Urine Glucose (UA) Urine Ketones Urine Blood Urine Nitrite Urine Bilirubin Urine Urobilinogen Ur Leukocyte Esterase Urine WBC (Auto) Urine RBC (Auto) U Hyaline Cast (Auto) U Epithel Cells (Auto) Urine Bacteria (Auto) Adenovirus (PCR) B. pertussis DNA (PCR) B.parapertussis DNA PCR C. pneumoniae DNA (PCR) Coronavirus OC43 (PCR) Coronavirus HKU1 (PCR) Coronavirus 229E (PCR) SARS-CoV-2 (PCR) Coronavirus NL63 (PCR) Human Metapneumovir PCR Influenza Type A (PCR) Influenza Type B (PCR) M. pneumoniae (PCR) Parainfluenza 1 (PCR) Parainfluenza 2 (PCR) Parainfluenza 3 (PCR) Parainfluenza 4 (PCR) RSV (PCR) Entero/Rhino (PCR) PG Care Time/CCT Total # of Minutes Spent Total Time Spent with Patient: Total time spent is greater than 50% in coordination of care (as documented) at patient's floor/unit and/or counseling patient: Coding Level of Care Code 77223 IN/OBS CONSULT LVL 4,60M Diagnoses ESRD on dialysis N18.6; Z99.2 Anemia in chronic kidney disease N18.9; D63.1 Hyperphosphatemia E83.39
--- NOTE | 2023-08-02 17:01 | Hospitalist Progress Note ---
Date of Service August 02, 2023 Assessment & Plan (1) Chest pain: Plan: Elevated but stable troponin (suspected ACS event on Saturday/Saturday when he had his most severe episode) - normal previously also while on dialysis (June and September 2022) Concerning risk factors and history for NSTEMI/unstable angina, currently asymptomatic ASA 324mg PO given in ER, continue 81mg PO daily -trop 333 --> 290 -metoprolol tartrate 25mg PO BID -atorvastatin 40mg PO daily -nitroglycerin 1 inch paste (intermittent recurring symptoms at rest with high BP) -heparin drip Lipid panel - LDL 86, HbA1C not accurate in setting of dialysis and does not appear diabetic given random glucose measurements < 100 -TTE with mod reduced EF 35-40%, mild AR and mod-severe , mild MR and mod MS, elevated RVSP and mildly dilated IVC -consult cardiology (2) Anemia in chronic kidney disease: Plan: Hgb 8.8-->7.9 (historically 8-10) (3) ESRD on hemodialysis: Plan: Continue sodium biarb Continue Severlamer Consulted nephrology - reviewed recs by Dr. Barreto - tiw dialysis indicated but patient only wants to go 2x a week. Some volume overload on echo. (4) GERD (gastroesophageal reflux disease): Plan: Continue pantoprazole (5) Hypertension: Plan: Continue amlodipine lisinopril (6) Chronic constipation: Plan: Continue linaclotide (7) Psoriatic arthritis: Plan: Patent reports this is actually rheumatoid arthritis under Dr Richardson Continue chronic prednisone (8) Chronic prescription opiate use: Plan: Continue his usual morphine ER Plan VTE prophylaxis - IV heparin Admission and Anticipated Discharge Date Admission Date: August 01, 2023 Subjective No further CP since last night, no dyspnea. No CP with pain, breathing, or palpation of chest wall Physical Exam 2 Physical Exam: PHYSICAL EXAMINATION Last 24h vital signs reviewed, see documentation in flowsheet General: comfortable appearing, no distress, sitting on edge of bed HEENT: Normocephalic, atraumatic, pupils round and equal, sclerae anicteric, no conjunctival injection, moist mucus membranes Lungs: Normal respiratory effort. Clear to auscultation bilaterally. No RRW Heart: Regular rate and rhythm, systolic murmur radiates towards left carotid. No JVD Abdomen: Soft, nontender, nondistended. Bowel sounds present. Extremities: Warm, dry, well-perfused. No extremity edema. status post left BKA wearing prosthesis, right lower extremity in splint/ brace, left forearm AV fistula with good thrill no erythema Neuro: Alert and oriented x 4, face symmetric, moves 4 extremities well Psych: Normal affect and behavior Results & Data Results & Data Vital Signs (Past 12 Hours) Vital Signs Temp Pulse Pulse Resp BP Pulse Ox O2 Del Method 08/02/23 15:55 36.8 C 82 18 113/86 99 Room Air 08/02/23 11:39 36.9 C 66 18 115/78 94 Room Air 08/02/23 07:40 36.8 C 70 18 145/96 H 94 Room Air 08/02/23 07:00 70 Laboratory Results 08/02/23 04:05 08/02/23 04:05 PG Care Time/CCT Total # of Minutes Spent Total Time Spent with Patient: Total time spent is greater than 50% in coordination of care (as documented) at patient's floor/unit and/or counseling patient: Coding Level of Care Code 17828 SUB INP/OBS CARE 2/35MIN Diagnoses Chest pain R07.9 Anemia in chronic kidney disease N18.9; D63.1 ESRD on hemodialysis N18.6; Z99.2 GERD (gastroesophageal reflux disease) K21.9 Hypertension I10 Chronic constipation K59.09 Psoriatic arthritis L40.50 Chronic prescription opiate use Z79.891
--- NOTE | 2023-08-02 17:09 | XCELERA ---
[id number]
--- NOTE | 2023-08-02 17:43 | Cardiology Consultation ---
Date of Consultation August 02, 2023 Assessment & Plan (1) Elevated troponin: (2) Chest pain: (3) Atrial fibrillation: (4) Cardiomyopathy: (5) Valvular heart disease: Plan 1. Chest pain: Unclear etiology. His initial symptoms did not sound cardiac in nature. He described this as "sharp" and severe. It also only lasted a few minutes. However, I recently he has had more of a "nagging" chest discomfort that is more constant in nature. Some exertional component as well. Very possible this represented some ischemia. He is certainly in a demographic who is likely to have ischemic heart disease. Also noted on echocardiography to have severe aortic stenosis. 2. Elevated troponin: Trajectory is flat suggesting more chronic elevation. Possibly elevated also due to his renal disease. However, he could have had a more remote event and biomarkers may be trending downward. I think given his other objective findings including his reduced LV systolic function and his risk factors for coronary disease he would benefit from coronary angiography in any regard. I did describe the procedure and the attendant risks to the patient. Unfortunately, it is Saturday evening and an elective case will need to wait until Saturday morning. 3. Cardiomyopathy. Described previously, but not on the last echocardiogram at our institution. Unknown etiology. Appears well-compensated and volume is controlled by dialysis. Will need to rule out ischemia with angiography. Currently on lisinopril but he would be a good candidate for switch to Entresto. will also start beta-blockade. 4. atrial fibrillation: This appears to be a remote diagnosis which occurred during an acute illness. Unclear if he continues to have atrial fibrillation. Would hesitate to start systemic anticoagulation till have a better understanding whether this is current problem. 5. Valvular heart disease: He has an element of mitral stenosis and appears to have severe aortic regurgitation. The dimensionless index is just above the limit for severe aortic stenosis and on the 2D images it appears there is reasonable opening of the aortic valve, but he certainly has high velocities and invasive evaluation seems worthwhile. This could certainly also cause the symptoms he has described. Will continue heparin for another 24 hours we will start metoprolol succinate at some point will need to hold lisinopril and start and dressed 0, perhaps after angiography. Plan for coronary angiography on Saturday History of Present Illness Reason for Consultation: Chest pain, elevated troponin Requesting Physician: Yen Attending Physician: Kimberly Felix MD History of Present Illness The patient is a 58-year-old gentleman with a history of nonobstructive coronary disease, remote atrial fibrillation and variable LV systolic function who presented to the hospital with complaints of chest pain. The patient states that last weekend he experienced an acute episode of sharp discomfort in the precordium. This is fairly severe in nature and cause some difficulty taking a deep breath. This lasted for 3 or 4 minutes before resolving. Throughout the course of the following week he has had intermittent episodes of chest discomfort, some which were similar. More recently he has described a nagging chest discomfort with activity and at rest. This has been fairly constant in nature but very mild in severity. No pleuritic component. No similar symptoms in the past. Some mild dyspnea with activity recently. No dizziness or lightheadedness. No syncope or presyncope. No sense of palpitation. 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 He has a prosthetic leg and is able to walk and work around his house without general limitation. He has been participating in regular dialysis and has not had difficulty with dialysis. No symptoms while on dialysis including during today's session. Currently he is feeling well. He states that he feels better today than he has all week. He has also been impressed with improved blood pressure control today. Remotely he has been seen by Dr. Snow, but not in several years. He recalls having a cardiac catheterization done performed several years ago and having a dye reaction. He described this as a warm sensation, nausea and possible loss of consciousness. No respiratory symptoms. Allergies Allergy/AdvReac Type Severity Reaction Status Date / Time finasteride Allergy Intermediate Hives Verified 07/26/23 09:00 hydrocodone Allergy Intermediate Rash Verified 07/26/23 09:00 Penicillins Allergy Intermediate RASH, Verified 07/26/23 09:00 HIVES, ITCHING losartan AdvReac Nausea Verified 07/26/23 09:00 Home Medications Medication Instructions Recorded Confirmed Type acetaminophen 500 mg tablet 1,000 mg PO TID PRN Pain 08/12/18 08/01/23 History (Tylenol Extra Strength) Prosthetic supplies #1 ea 12/01/20 03/26/23 Rx RT silicone partial foot prostehsis #1 ea 07/01/21 03/26/23 Rx R hand prosthesis #1 ea 10/10/21 03/26/23 Rx clobetasol 0.05 % topical cream 1 applic topical BID PRN AFFECTED 06/05/22 08/01/23 History AREA NEEDED sevelamer carbonate 800 mg tablet 2,400 mg PO TIDM 06/09/22 08/01/23 History (Renvela) sodium bicarbonate 650 mg tablet 1,300 mg PO BID 06/09/22 08/01/23 History folic acid 400 mcg tablet 400 mcg PO QAM #30 tabs 06/11/22 08/01/23 Rx Locking Liners, Liner Liners, 1 #1 ea 06/26/22 03/26/23 Rx ply spacer socks R partial foot prosthesis with #1 ea 06/26/22 03/26/23 Rx arch support Repair L BKA prosthesis #1 ea 06/26/22 03/26/23 Rx Protective boot, R foot #1 ea 07/24/22 03/26/23 Rx amlodipine 5 mg tablet 5 mg PO HS #90 tabs 08/17/22 08/01/23 Rx tamsulosin 0.4 mg capsule 0.4 mg PO BID #180 caps 09/03/22 08/01/23 Rx R Toe off carbon fiber AFO #1 ea 09/13/22 03/26/23 Rx sevelamer carbonate 800 mg tablet 800 mg PO .WITH SNACKS 09/15/22 08/01/23 History lisinopril 5 mg tablet 5 mg PO QAM 09/16/22 08/01/23 History calcium carbonate (Tums) 200 mg PO BID PRN Heartburn 09/25/22 08/01/23 History patiromer calcium sorbitex 16.8 16.8 g PO DAILY #30 ea 10/23/22 08/01/23 Rx gram oral powder packet (Veltassa) Wheelchair (Manual) (Manual #1 ea 11/12/22 03/26/23 Rx Wheelchair) promethazine 25 mg tablet 25 mg PO TID PRN nausea and 04/16/23 08/01/23 Rx vomiting #20 tabs ipratropium bromide 21 mcg (0.03 2 spray intranasal BID #90 mL 04/19/23 08/01/23 Rx %) nasal spray pantoprazole 40 mg tablet,delayed 40 mg PO HS 05/20/23 08/01/23 History release linaclotide 145 mcg capsule 145 mcg PO DAILY #30 caps 05/28/23 08/01/23 Rx (Linzess) lactulose 10 gram/15 mL oral 30 ml PO BID PRN Constipation #946 06/18/23 08/01/23 Rx solution mL zolpidem 10 mg tablet 10 mg PO HS #90 tabs 07/11/23 08/01/23 Rx morphine 30 mg tablet,extended 30 mg PO Q12H #60 tabs 07/23/23 08/01/23 Rx release (MS Contin) ondansetron 4 mg disintegrating 4 mg PO Q8H PRN nausea and 07/23/23 08/01/23 Rx tablet vomiting #30 tabs doxycycline hyclate 100 mg capsule 100 mg PO BID 10 days #20 caps 07/26/23 08/01/23 Rx prednisone 5 mg tablet 10 mg PO DAILY 08/01/23 08/01/23 History Patient History Medical History (Updated 08/02/23 @ 17:43 by Finn Pollack MD) Nausea and vomiting after administration of anesthetic agent History of anesthesia reaction Gets very nervous with a lot of nausea due to past experiences with procedures/ losing limbs, etc, > asks for something to help History of COVID-2019 History of blood transfusion 01/2020 History of cardioversion 10/2019 [facility] ESRD on hemodialysis [facility] in [place] > Tues/Th OR /Saturday Abscess of right foot hx Infection of amputation site of lower extremity has at present on doxy to treat Scrotal swelling resolved Chronic pain Urinary incontinence Atrial fibrillation hx- cardioversion; 10/2019; no longer follows w/ cardio Peripheral arterial disease Avascular necrosis of bones of both hips Coronary artery disease code entered 02/04/[address] Brannon per EMR, office note from that date was cancelled. Remote 2017 [facility] cardiology records list nonobstructive CAD History of renal cell cancer (~2014) 2016 ALBA (nonalcoholic steatohepatitis) GERD (gastroesophageal reflux disease) Diverticulosis Dyslipidemia AV fistula LEFT ARM Hypertension FSGS (focal segmental glomerulosclerosis) Diabetes mellitus pt denies, no meds or treatment Surgical History (Updated 07/26/23 @ 09:04 by Blank Rodriguez LPN) History of prostate surgery 06/2023 History of hydrocelectomy (12/18/22) L side Status post PICC central line placement removed S/P excisional debridement 06/08/22 Dr. Neo Goodwin at [facility]- Right foot excision/exostectomy osteomyelitis of the talus, Tenosynovectomy of the flexor hallucis longus tendon, Partial resection flexor hallucis longus tendon, Excision/exostectomy osteomyelitis of the calcaneus, Debridement 3 cm diameter x 0.4 cm depth foot ulcer, Evacuation abscess, dorsal and medial right foot. Acquired absence of right finger(s) (03/18/20) 2n-4th digits Acquired absence of right foot (03/18/20) partial amputation, secondary to dry gangrene, [facility] [place] Acquired absence of left leg below knee (01/11/20) 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) 2nd toe, d/t embolism Hx of umbilical hernia repair (02/2019) H/O hernia repair (~10/21/17) 10/20/2017. GETA. Grade 1 view. Escobar 2. 8.0 ETT. No issues. H/O hand surgery (~09/2018) Hilda 10/02/18 S/P arteriovenous (AV) fistula repair MULTIPLE > current in left arm Status post insertion of hemodialysis catheter +MULTIPLE REVISIONS Hx of abdominal surgery PERITONEAL CATHETER INSERTION + REVISION History of incisional hernia repair History of nephrectomy, left (2015) Due to Renal Cell Cancer Family History Brother Liver cirrhosis secondary to ALBA Family history of diabetes mellitus Father Brain tumor Coronary heart disease Hypertension Family history of diabetes mellitus Myocardial infarction Mother Liver cancer Hypertension Family history of diabetes mellitus Breast cancer Grandmother (Maternal) Stroke Sister Family history of diabetes mellitus Ovarian cancer Grandfather (Maternal) Family hx of colon cancer Colorectal cancer Prostate cancer Grandfather (Paternal) Prostate cancer Social History Smoking Status: Never smoker Tobacco Type: Smokeless Tobacco (Dip or Chew) Second Hand Exposure: No; Do You Dip or Chew Tobacco: Yes (advised npo status); Hx Alcohol Use: No Hx Substance Use: No Preferred Language: Yakut Communication Ability: Effective Visual Impairment: No Limitations Hearing Ability: Normal 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 Operations Specialist Required: No Beliefs That Will Affect Care: None marital status: Current Living Situation: Alone current occupational status: disabled 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[employer], 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 Physical Exam Physical Exam: The patient is alert and oriented. Mood and affect appeared normal. He answered all questions appropriately. HEENT: Pupils are equal and reactive to light and accommodation. Extraocular movements are intact. The sclerae are anicteric. Neuro: Cranial nerves intact Lungs: Clear to auscultation bilaterally. He has good air movement without use of accessory muscles. No rales wheezes or rhonchi. Cardiac: Heart demonstrates a regular rate and rhythm. Normal S1 and S2. High-pitched crescendo systolic murmur heard best at the left 2nd intercostal space.. Pulses: Poor radial pulses bilaterally. Functioning AV fistula in left forearm. Palpable pulse and thrill. Extremities: Left above knee amputation. Skin: I did not appreciate any rashes on examination today. Results & Data Vital Signs (Past 12 Hours) Vital Signs Temp Pulse Pulse Resp BP Pulse Ox O2 Del Method 08/02/23 15:55 36.8 C 82 18 113/86 99 Room Air 08/02/23 11:39 36.9 C 66 18 115/78 94 Room Air 08/02/23 07:40 36.8 C 70 18 145/96 H 94 Room Air 08/02/23 07:00 70 Laboratory Results Abnormal Lab Results 08/01/23 08/02/23 08/02/23 22:40 04:05 09:54 WBC 7.60 RBC 2.51 L Hgb 7.9 L Hct 24.6 L MCV 98.0 MCH 31.5 MCHC 32.1 RDW Std Deviation 58.8 H RDW Coeff of Marcelino 16.4 H Plt Count 135 MPV 10.6 Immature Gran % (Auto) 3.3 Neut % (Auto) 73.8 Lymph % (Auto) 13.6 Bond % (Auto) 7.8 Eos % (Auto) 1.2 Baso % (Auto) 0.3 Neut # (Auto) 5.62 Lymph # (Auto) 1.03 L Bond # (Auto) 0.59 Eos # (Auto) 0.09 Baso # (Auto) 0.02 Immature Gran # (Auto) 0.25 H RBC Morphology Unremarkable Heparin Anti-Xa, Unfract 0.30 Sodium 140 Potassium 3.8 Chloride 97 L Carbon Dioxide 33 H Anion Gap 10 BUN 39 H Creatinine 8.65 H* D Est Cr Clr Drug Dosing 9.6 Est GFR ( Amer) 7.0 Est GFR (Non-Af Amer) 6.0 BUN/Creatinine Ratio 4.5 L Glucose 91 Calcium 8.1 L Troponin I High Sens 296.3 H* 333.5 H* 290.4 H* Triglycerides 126 Cholesterol 153 LDL Cholesterol, Calc 86 VLDL Cholesterol, Calc 25 HDL Cholesterol 42 Cholesterol/HDL Ratio 3.6 Diagnostic Findings Echocardiogram performed 08/02/2023: Moderately reduced LV systolic function with ejection fraction around 35%. Mild left atrial dilation. Mild aortic regurgitation. Moderate to severe valvular aortic stenosis. Severe mitral annular calcification with mild mitral regurgitation. Moderate mitral stenosis. Elevated right ventricular filling pressures. Echocardiogram performed [facility] 11/23/2019: Ejection fraction 40-45%. Stage I diastolic dysfunction. Cardiac catheterization 07/2009. Nonobstructive coronary disease. ECG Additional Comments: EKG demonstrated normal sinus rhythm. Normal EKG. PG Care Time/CCT Total # of Minutes Spent Total Time Spent with Patient: Total time spent is greater than 50% in coordination of care (as documented) at patient's floor/unit and/or counseling patient: Coding Level of Care Code 63926 INT INP/OBS CARE 3/75MIN Diagnoses Elevated troponin R79.89 Chest pain R07.9 Atrial fibrillation I48.91 Cardiomyopathy I42.9 Valvular heart disease I38
[2023-08-03 06:48] LABS: ANTI-Xa, UFH(UnfractionatedHep 0.18 IU/ml (0.3-0.7)
[2023-08-03] MEDS ORDERED: HEPARIN SOD (PORCINE) 1000 UNIT/ML IV ONE (07:08)
[2023-08-03] MEDS: HEPARIN IV BOLUS 3,000 UNITS in SYRINGE 0 ML IV ONE (07:46)
--- NOTE | 2023-08-03 08:25 | Nephrology Progress Note ---
Date of Service August 03, 2023 Assessment & Plan (1) ESRD on dialysis: Plan: * Patient desires HD treatment today in preparation for cardiac catheterization on Saturday. Will provide 2 hour treatment today. Orders have been placed in EMR and HD RN notified * Outpatient Rx: TT 2 hours, 180 optiflux, 2K 2.5Ca, 250/400, EDW 82 kg. (2) Anemia in chronic kidney disease: Plan: * Will provide Epogen w/ HD today * Monitor H&H * 08/02 iron saturation 41% w/ ferritin 691. No acute indication for IV iron at this time (3) Hyperphosphatemia: Plan: * Maintained on Auryxia as outpatient. Unable to tolerate other binders in the past * Continue low phosphorus diet. (4) Coronary artery disease: Plan: * Admitted w/ angina and elevated troponin * Cardiac catheterization scheduled for Saturday Admission and Anticipated Discharge Date Admission Date: August 01, 2023 Subjective Mr. Hernandez was evaluated in his hospital room this morning. He denies angina or dyspnea. He requests HD treatment today in preparation for his cardiac catheterization on Saturday Review of Systems Constitutional: no fever Eyes: no problem reported Ear, Nose, Mouth, Throat: no problem reported Respiratory: no cough and no dyspnea Cardiovascular: no chest pain Gastrointestinal: no abdominal pain, no nausea, no vomiting and no diarr hea/loose stools Physical Exam Constitutional: no acute distress Eyes: PERRL, conjunctivae normal, anicteric sclerae ENMT: external ear and nose normal, oropharynx normal Neck: trachea midline, no thyromegaly Respiratory: normal respiratory effort, lungs clear to auscultation Cardiovascular: RRR, no murmur, no edema Extremities: + AV fistula (+ bruit ) Gastrointestinal (Abdomen): normal bowel sounds, soft, nontender, no hepatosplenomegaly Neurologic: Speech / Cognition: normal speech and normal cognition Results & Data Vital Signs (Past 12 Hours) Vital Signs Temp Pulse Pulse Resp BP Pulse Ox O2 Del Method 08/03/23 07:35 36.6 C 79 19 122/83 94 Room Air 08/03/23 04:00 36.7 C 71 16 124/74 95 Room Air 08/03/23 00:39 36.9 C 68 16 127/91 94 Room Air 08/03/23 00:00 83 Laboratory Results Laboratory Results - last 24 hr 08/02/23 08/03/23 08/03/23 09:54 05:51 05:52 WBC Pending RBC Pending Hgb Pending Hct Pending MCV Pending MCH Pending MCHC Pending Plt Count Pending Heparin Anti-Xa, Unfract 0.18 L Sodium 140 Potassium 3.8 Chloride 98 Carbon Dioxide 30 Anion Gap 12 H BUN 51 H Creatinine 10.92 H* D Est Cr Clr Drug Dosing 7.9 Est GFR ( Amer) 5.2 Est GFR (Non-Af Amer) 4.5 BUN/Creatinine Ratio 4.7 L Glucose 97 Calcium 8.1 L Iron 79 TIBC 193 L Unsaturated IBC 114 L Transferrin % Sat 41 Ferritin 691.6 H Troponin I High Sens 290.4 H* 234.5 H* PG Care Time/CCT Total # of Minutes Spent Total Time Spent with Patient: Total time spent is greater than 50% in coordination of care (as documented) at patient's floor/unit and/or counseling patient: Coding Level of Care Code 09742 SUB INP/OBS CARE 3/50MIN Diagnoses ESRD on dialysis N18.6; Z99.2 Anemia in chronic kidney disease N18.9; D63.1 Hyperphosphatemia E83.39 Coronary artery disease I25.10
[2023-08-03 09:28] LABS: BUN Creatinine Ratio 4.7 (10-20); Calcium 8.1 mg/dl (8.6-10.3); Creatinine Clr Calc Pharmacy 7.9 ml/min; Est GFR (African American) 5.2 ml/min; Est GFR (Non-African American) 4.5 ml/min; Potassium 3.8 mmol/L (3.5-5.1); Troponin I High Sensitivity 234.5 pg/ml (0-20)
[2023-08-03] MEDS: PROCHLORPERAZINE 5 MG in SYRINGE 4 ML IV PRN (09:31)
[2023-08-03 09:38] LABS: Ferritin 691.6 ng/ml (8-388)
[2023-08-03] MEDS ORDERED: SODIUM CHLORIDE 0.9% 1,000 ML IV PRN (09:43)
[2023-08-03 09:54] LABS: Hematocrit (blood only) 26.5 % (42.0-52.0); Hemoglobin 8.1 g/dl (14.0-18.0); Mean Corpuscular Hemoglobin 30.7 pg (25.0-34.0); Mean Corpuscular Hgb Conc 30.6 g/dL (32.0-36.0); Mean Corpuscular Volume 100.4 fL (80.0-100.0); Mean Platelet Volume 11.5 fL (9.4-12.4); Platelet Count 151 K/uL (130-400); RDW Coefficient of Variation 16.3 % (11.5-14.5); RDW Standard Deviation 59.8 fL (36.4-46.3); Red Blood Count 2.64 M/uL (4.70-6.10); White Blood Count 9.03 K/ul (4.8-10.8)
--- NOTE | 2023-08-03 14:12 | XRay Report ---
RIGHT SHOULDER 3 VIEWS CLINICAL HISTORY: Right shoulder pain. FINDINGS: 3 views of the right shoulder are compared to study dated 04/22/2018. The skeletal structures are osteopenic. There is no radiographic evidence of acute fracture or dislocation. [id number] osteoarthritic change is noted at the glenohumeral articulation. Productive degenerative change is s een at the acromioclavicular joint. There is evidence of calcific tendinopathy. The underlying soft t issues are otherwise normal as imaged. Findings suggest pulmonary vascular congestion. IMPRESSION: 1. No acute bony abnormality is identified. 2. There is evidence of calcific tendinopathy. 3. Findings suggest pulmonary vascular congestion. Correlate clinically. Electronically signed by: Roddy Oscar M.D. 08/03/2023 2:11 PM
[2023-08-03 14:37] LABS: ANTI-Xa, UFH(UnfractionatedHep 0.28 IU/ml (0.3-0.7)
[2023-08-03] MEDS: METOPROLOL SUCC 50MG EXT REL TAB PO SCH (16:19)
[2023-08-03] MEDS: EPOETIN ALFA 10,000 UNITS/ML VIAL IV ONE (16:39)
--- NOTE | 2023-08-03 16:42 | Hospitalist Progress Note ---
Date of Service August 03, 2023 Assessment & Plan (1) Chest pain: Plan: Elevated but stable troponin (suspected ACS event on Saturday/Saturday when he had his most severe episode) - normal previously also while on dialysis (June and September 2022) Could be CAD and has multiple risk factors or related to his valvular disease -continue ASA daily -heparin through tonight per cardiology -trop downtrended -metoprolol tartrate 25mg PO BID -atorvastatin 40mg PO daily -lisinopril had previously been stopped by Dr. Quijano because of problems with high calcium, resumed amlodipine 5 mg bid. entresto recommended by cardiology - will need to d/w data storage specialist -nitroglycerin 1 inch paste (intermittent recurring symptoms at rest with high BP) Lipid panel - LDL 86, HbA1C not accurate in setting of dialysis and does not appear diabetic given random glucose measurements < 100 -TTE with mod reduced EF 35-40%, mild AR and mod-severe , mild MR and mod MS, elevated RVSP and mildly dilated IVC -consulted cardiology - cath planned saturday to evaluate coronaries, better evaluate valvular disease (2) Anemia in chronic kidney disease: Plan: Hgb 8.8-->7.9 (historically 8-10) (3) ESRD on hemodialysis: Plan: Continue sodium biarb Continue Opal Consulted nephrology - tiw dialysis indicated but patient only wants to go 2x a week. Some volume overload on echo. -L forearm AVF infiltrated today and unable to complete dialysis -hopefully will be usable soon, electrolytes and volume status acceptable -AM labs (4) GERD (gastroesophageal reflux disease): Plan: Continue pantoprazole (5) Hypertension: Plan: Continue amlodipine increased to bid - see above (6) Chronic constipation: Plan: Continue linaclotide (7) Psoriatic arthritis: Plan: Patent reports this is actually rheumatoid arthritis under Dr Richardson Continue chronic prednisone (8) Chronic prescription opiate use: Plan: Continue his usual morphine ER Plan R shoulder pain - ordered xrays planned as outpatient R foot plantar ulcer, history of osteomyelitis -Xray -examine wound, consult wound care if wound present -continue doxycycline VTE prophylaxis - IV heparin Admission and Anticipated Discharge Date Admission Date: August 01, 2023 Subjective no further chest pain, no dyspnea has had ulcer with some drainage R foot base, had osteo in this location and on doxy - PCP had ordered xrays Physical Exam 2 Physical Exam: PHYSICAL EXAMINATION Last 24h vital signs reviewed, see documentation in flowsheet General: comfortable appearing, no distress, sitting on edge of bed and walking in HW HEENT: Normocephalic, atraumatic, pupils round and equal, sclerae anicteric, no conjunctival injection, moist mucus membranes Lungs: Normal respiratory effort. Clear to auscultation bilaterally. No RRW Heart: Regular rate and rhythm, systolic murmur radiates towards left carotid. No JVD Abdomen: Soft, nontender, nondistended. Bowel sounds present. Extremities: Warm, dry, well-perfused. No extremity edema. status post left BKA wearing prosthesis, right lower extremity in splint/ brace, left forearm AV fistula infiltrated today with weaker thrill, mild swelling, no erythema Neuro: Alert and oriented x 4, face symmetric, moves 4 extremities well Psych: Normal affect and behavior Results & Data Results & Data Vital Signs (Past 12 Hours) Vital Signs Temp Pulse Pulse Pulse Pulse Resp BP 08/03/23 15:56 36.8 C 64 18 08/03/23 13:00 36.3 C L 80 16 08/03/23 12:25 36.8 C 79 08/03/23 12:00 126/80 08/03/23 11:33 144/83 H 08/03/23 11:20 36.6 C 86 08/03/23 07:35 36.6 C 79 19 08/03/23 07:00 81 BP Pulse Ox O2 Del Method 08/03/23 15:56 116/94 96 Room Air 08/03/23 13:00 129/93 95 Room Air 08/03/23 12:25 113/76 08/03/23 12:00 08/03/23 11:33 08/03/23 11:20 08/03/23 07:35 122/83 94 Room Air 08/03/23 07:00 Laboratory Results 08/03/23 05:51 08/03/23 05:51 PG Care Time/CCT Total # of Minutes Spent Total Time Spent with Patient: I personally spent: 50 minutes today on clinical care activities including: reviewing chart notes and vital signs reviewing labs examining and counseling the patient discussion with RN reviewing outpatient chart writing orders documentation Coding Level of Care Code 06729 SUB INP/OBS CARE 3/50MIN Diagnoses Chest pain R07.9 Anemia in chronic kidney disease N18.9; D63.1 ESRD on hemodialysis N18.6; Z99.2 GERD (gastroesophageal reflux disease) K21.9 Hypertension I10 Chronic constipation K59.09 Psoriatic arthritis L40.50 Chronic prescription opiate use Z79.891
--- NOTE | 2023-08-03 19:10 | XRay Report ---
RIGHT FOOT 3 VIEWS CLINICAL HISTORY: Right foot wound. FINDINGS: 3 views of the right foot are compared to study dated 06/08/2022 and correlated with MRI of the ankle dated 06/05/2022. The skeletal structures are heterogeneously osteopenic. No acute fracture is seen. Again seen is postsurgical change from amputation of the forefoot and midfoot. This is simil ar to the 06/08/2022 examination. The anterior talus is heterogeneous. No erosive change is clearly se en. There is a large plantar heel spur. Degenerative change is noted at the tibiotalar articulation. Soft tissue edema is seen throughout the foot and ankle. Question a wound/ulceration anteriorly. No s oft tissue gas is clearly seen. There is advanced atherosclerotic calcification of the regional arter ies. IMPRESSION: 1. Diffuse soft tissue edema with no acute bony abnormality clearly identified. 2. No bony erosion is clearly seen. 3. Heterogeneous osteopenia with postsurgical and degenerative change as above. 4. Question a wound/ulceration anteriorly. Electronically signed by: Roddy Oscar M.D. 08/03/2023 7:09 PM
[2023-08-03 21:02] LABS: ANTI-Xa, UFH(UnfractionatedHep 0.18 IU/ml (0.3-0.7)
[2023-08-03] MEDS: HEPARIN SOD (PORCINE) 1000 UNIT/ML IV ONE (21:32)
[2023-08-03] MEDS: amLODIPine BESYLATE 5 MG TAB PO SCH (21:37)
[2023-08-03] MEDS: DOCUSATE SODIUM 100 MG CAP PO PRN (21:37)
[2023-08-04 07:34] LABS: Hematocrit (blood only) 26.3 % (42.0-52.0); Mean Corpuscular Hemoglobin 30.7 pg (25.0-34.0); Mean Corpuscular Hgb Conc 30.4 g/dL (32.0-36.0); Mean Corpuscular Volume 100.8 fL (80.0-100.0); Mean Platelet Volume 11.2 fL (9.4-12.4); Platelet Count 144 K/uL (130-400); RDW Coefficient of Variation 16.2 % (11.5-14.5); RDW Standard Deviation 60.3 fL (36.4-46.3); Red Blood Count 2.61 M/uL (4.70-6.10); White Blood Count 10.27 K/ul (4.8-10.8)
[2023-08-04 07:50] LABS: BUN Creatinine Ratio 5.3 (10-20); Calcium 8.1 mg/dl (8.6-10.3); Est GFR (African American) 5.3 ml/min; Est GFR (Non-African American) 4.6 ml/min; Magnesium 2.1 mg/dl (1.7-2.4); Phosphorus 6.2 mg/dl (2.5-4.9); Potassium 4.3 mmol/L (3.5-5.1)
[2023-08-04 08:02] LABS: Troponin I High Sensitivity 151.4 pg/ml (0-20)
--- NOTE | 2023-08-04 09:04 | Nephrology Progress Note ---
Date of Service August 04, 2023 Assessment & Plan (1) ESRD on dialysis: Plan: * Volume status and electrolyte balance are acceptable this morning. No acute indication for HD today. Will schedule next HD for Saturday following cardiac catheterization * Outpatient Rx: TT 2 hours, 180 optiflux, 2K 2.5Ca, 250/400, EDW 82 kg. (2) Anemia in chronic kidney disease: Plan: * Will provide Epogen w/ HD Saturday * Monitor H&H * 08/02 iron saturation 41% w/ ferritin 691. No acute indication for IV iron at this time (3) Hyperphosphatemia: Plan: * Maintained on Auryxia as outpatient. Unable to tolerate other binders in the past * Continue low phosphorus diet. (4) Coronary artery disease: Plan: * Admitted w/ angina and elevated troponin * Cardiac catheterization scheduled for Saturday Admission and Anticipated Discharge Date Admission Date: August 01, 2023 Subjective Mr. Hernandez was evaluated in his hospital room this morning. He denies angina or dyspnea. He was dialyzed yesterday in preparation for cardiac catheterization on Saturday. Unfortunately venous needle infiltrated and only 30 min dialysis provided. Patient reports that AVG is without discomfort or significant ecchymosis this am Review of Systems Constitutional: no fever Eyes: no problem reported Ear, Nose, Mouth, Throat: no problem reported Respiratory: no cough and no dyspnea Cardiovascular: no chest pain Gastrointestinal: no abdominal pain, no nausea, no vomiting and no diarrhea/loose stools Physical Exam Constitutional: no acute distress Eyes: PERRL, conjunctivae normal, anicteric sclerae ENMT: external ear and nose normal, oropharynx normal Neck: trachea midline, no thyromegaly Respiratory: normal respiratory effort, lungs clear to auscultation Cardiovascular: RRR, no murmur, no edema Extremities: + AV fistula (L forearm AVG + bruit) Gastrointestinal (Abdomen): normal bowel sounds, soft, nontender, no hepatosplenomegaly Neurologic: Speech / Cognition: normal speech and normal cognition Results & Data Vital Signs (Past 12 Hours) Vital Signs Temp Pulse Pulse Resp BP Pulse Ox O2 Del Method 08/04/23 08:05 36.8 C 83 19 138/93 99 Room Air 08/04/23 04:50 36.8 C 75 16 117/86 92 Room Air 08/04/23 00:00 77 08/03/23 23:23 37.1 C 84 18 128/93 95 Room Air Laboratory Results Laboratory Results - last 24 hr 08/03/23 08/03/23 08/03/23 05:51 13:52 20:43 WBC 9.03 RBC 2.64 L Hgb 8.1 L Hct 26.5 L MCV 100.4 H MCH 30.7 MCHC 30.6 L RDW Std Deviation 59.8 H RDW Coeff of Marcelino 16.3 H Plt Count 151 MPV 11.5 Heparin Anti-Xa, Unfract 0.28 L 0.18 L Sodium 140 Potassium 3.8 Chloride 98 Carbon Dioxide 30 Anion Gap 12 H BUN 51 H Creatinine 10.92 H* D Est Cr Clr Drug Dosing 7.9 Est GFR ( Amer) 5.2 Est GFR (Non-Af Amer) 4.5 BUN/Creatinine Ratio 4.7 L Glucose 97 Calcium 8.1 L Phosphorus Magnesium Iron 79 TIBC 193 L Unsaturated IBC 114 L Transferrin % Sat 41 Ferritin 691.6 H Troponin I High Sens 234.5 H* 08/04/23 07:06 WBC 10.27 RBC 2.61 L Hgb 8.0 L Hct 26.3 L MCV 100.8 H MCH 30.7 MCHC 30.4 L RDW Std Deviation 60.3 H RDW Coeff of Marcelino 16.2 H Plt Count 144 MPV 11.2 Heparin Anti-Xa, Unfract Sodium 139 Potassium 4.3 Chloride 100 Carbon Dioxide 29 Anion Gap 10 BUN 57 H Creatinine 10.83 H* Est Cr Clr Drug Dosing 8.0 Est GFR ( Amer) 5.3 Est GFR (Non-Af Amer) 4.6 BUN/Creatinine Ratio 5.3 L Glucose 144 H Calcium 8.1 L Phosphorus 6.2 H Magnesium 2.1 Iron TIBC Unsaturated IBC Transferrin % Sat Ferritin Troponin I High Sens 151.4 H* D PG Care Time/CCT Total # of Minutes Spent Total Time Spent with Patient: Total time spent is greater than 50% in coordination of care (as documented) at patient's floor/unit and/or counseling patient: Coding Level of Care Code 39142 SUB INP/OBS CARE 3/50MIN Diagnoses ESRD on dialysis N18.6; Z99.2 Anemia in chronic kidney disease N18.9; D63.1 Hyperphosphatemia E83.39 Coronary artery disease I25.10
--- NOTE | 2023-08-04 15:57 | Hospitalist Progress Note ---
Date of Service August 04, 2023 Assessment & Plan (1) Chest pain: Plan: Elevated but stable troponin (suspected ACS event on Saturday/Saturday when he had his most severe episode) - normal previously also while on dialysis (June and September 2022) Could be CAD and has multiple risk factors or related to his valvular disease -continue ASA daily -had course of IV heparin beginning of hospitalization, stopped 08/02 -trop downtrended - down to 151 today -metoprolol tartrate 25mg PO BID -atorvastatin 40mg PO daily -lisinopril had previously been stopped by Dr. Quijano because of problems with high calcium, resumed amlodipine 5 mg bid. 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 -nitroglycerin 1 inch paste (intermittent recurring symptoms at rest with high BP) Lipid panel - LDL 86, HbA1C not accurate in setting of dialysis and does not appear diabetic given random glucose measurements < 100 -TTE with mod reduced EF 35-40%, mild AR and mod-severe , mild MR and mod MS, elevated RVSP and mildly dilated IVC -consulted cardiology - cath planned saturday to evaluate coronaries, better evaluate valvular disease (2) Anemia in chronic kidney disease: Plan: Hgb 8.8-->7.9 (historically 8-10) (3) ESRD on hemodialysis: Plan: Continue sodium biarb Continue Opal Consulted nephrology - tiw dialysis indicated but patient only wants to go 2x a week. Some volume overload on echo. -L forearm AVF infiltrated 08/02 and unable to complete dialysis - next HD Saturday after cath -electrolytes and volume status acceptable unchanged on BMP today -AM labs (4) GERD (gastroesophageal reflux disease): Plan: Continue pantoprazole (5) Hypertension: Plan: Continue amlodipine increased to bid - see above (6) Chronic constipation: Plan: Continue linaclotide (7) Psoriatic arthritis: Plan: Patent reports this is actually rheumatoid arthritis under Dr Richardson Continue chronic prednisone (8) Chronic prescription opiate use: Plan: Continue his usual morphine ER Plan R shoulder pain - ordered xrays planned as outpatient - calcific tendonitis and OA, no fracture/dislocation R foot/ankle stump ulcers present on admission, history of osteomyelitis - chronic osteo, he states he takes doxycycline whenever he has drainage or it opens up -Xray reviewed - no fracture or visible osteo -examined wound 08/03, consult wound care -continue doxycycline VTE prophylaxis - was on IV heparin, low risk today - has been ambulating frequently and consistently in chair Admission and Anticipated Discharge Date Admission Date: August 01, 2023 Subjective no CP or dyspnea LUE AVF swelling improved, has good thrill R foot stump wound and drainage much improved since starting oral doxy last week Physical Exam Physical Exam: PHYSICAL EXAMINATION Last 24h vital signs reviewed, see documentation in flowsheet General: comfortable appearing, no distress, sitting in chair HEENT: Normocephalic, atraumatic, pupils round and equal, sclerae anicteric, no conjunctival injection, moist mucus membranes Lungs: Normal respiratory effort. Heart: Abdomen: nondistended. Extremities: Warm, dry, well-perfused. No RLE extremity edema. status post left BKA wearing prosthesis, right lower extremity in splint/ brace - removed, ankle stump with two ulcers anteriorly mild whitish drainage from medial ulcer, no erythema not boggy left forearm AV fistula less swelling, strong thrill, no erythema Neuro: Alert and oriented x 4, face symmetric, moves 4 extremities well Psych: Normal affect and behavior Results & Data Results & Data Vital Signs (Past 12 Hours) Vital Signs Temp Pulse Resp BP Pulse Ox O2 Del Method 08/04/23 11:55 36.8 C 85 17 147/99 H 96 Room Air 08/04/23 08:05 36.8 C 83 19 138/93 99 Room Air 08/04/23 04:50 36.8 C 75 16 117/86 92 Room Air Diagnostic Findings Foot X-Ray 08/03/23 13:45 RIGHT FOOT 3 VIEWS CLINICAL HISTORY: Right foot wound. FINDINGS: 3 views of the right foot are compared to study dated 06/08/2022 and correlated with MRI of the ankle dated 06/05/2022. The skeletal structures are heterogeneously osteopenic. No acute fracture is seen. Again seen is post surgical change from amputation of the forefoot and midfoot. This is similar to the 06/08/2022 examination. The anterior talus is heterogeneous. No erosive change is clearly seen. There is a large plantar heel spur. Degenerative change is noted at the tibiotalar articulation. Soft tissue edema is seen throughout the foot and ankle. Question a wound/ulceration anteriorly. No soft tissue gas is clearly seen. There is advanced atherosclerotic calcification of the regional arteries. IMPRESSION: 1. Diffuse soft tissue edema with no acute bony abnormality clearly identified. 2. No bony erosion is clearly seen. 3. Heterogeneous osteopenia with postsurgical and degenerative change as above. 4. Question a wound/ulceration anteriorly. Electronically signed by: Roddy Oscar M.D. 08/03/2023 7:09 PM PG Care Time/CCT Total # of Minutes Spent Total Time Spent with Patient: Total time spent is greater than 50% in coordination of care (as documented) at patient's floor/unit and/or counseling patient: Coding Level of Care Code 67094 SUB INP/OBS CARE 2/35MIN Diagnoses Chest pain R07.9 Anemia in chronic kidney disease N18.9; D63.1 ESRD on hemodialysis N18.6; Z99.2 GERD (gastroesophageal reflux disease) K21.9 Hypertension I10 Chronic constipation K59.09 Psoriatic arthritis L40.50 Chronic prescription opiate use Z79.891
[2023-08-05] MEDS ORDERED: SODIUM CHLORIDE 0.9% 1,000 ML IV PRN (07:00)
--- NOTE | 2023-08-05 08:37 | Nephrology Progress Note ---
Date of Service August 05, 2023 Assessment & Plan (1) ESRD on dialysis: Plan: * Volume status is acceptable this morning. AM labs have been ordered STAT. Will provide HD following cardiac catheterization. Orders have been entered into EMR and HD RN updated * Outpatient Rx: TT 2 hours, 180 optiflux, 2K 2.5Ca, 250/400, EDW 82 kg. (2) Anemia in chronic kidney disease: Plan: * Will provide Epogen w/ HD Saturday * Monitor H&H * 08/02 iron saturation 41% w/ ferritin 691. No acute indication for IV iron at this time (3) Hyperphosphatemia: Plan: * Maintained on Auryxia as outpatient. Unable to tolerate other binders in the past * Continue low phosphorus diet. (4) Coronary artery disease: Plan: * Admitted w/ angina and elevated troponin * Cardiac catheterization scheduled for this am. Await results Admission and Anticipated Discharge Date Admission Date: August 01, 2023 Subjective Mr. Hernandez was evaluated in his hospital room this morning. He was awaiting cardiac catheterization. He denies angina or dyspnea. Review of Systems Constitutional: no fever Eyes: no problem reported Ear, Nose, Mouth, Throat: no problem reported Respiratory: no cough and no dyspnea Cardiovascular: no chest pain Gastrointestinal: no abdominal pain, no nausea, no vomiting and no diarrhea/loose stools Physical Exam Constitutional: no acute distress Eyes: PERRL, conjunctivae normal, anicteric sclerae ENMT: external ear and nose normal, oropharynx normal Neck: trachea midline, no thyromegaly Respiratory: normal respiratory effort, lungs clear to auscultation Cardiovascular: RRR, no murmur, no edema Extremities: + AV fistula (L forearm AVG + bruit) Gastrointestinal (Abdomen): normal bowel sounds, soft, nontender, no hepatosplenomegaly Neurologic: Speech / Cognition: normal speech and normal cognition Results & Data Vital Signs (Past 12 Hours) Vital Signs Temp Pulse Pulse Resp BP Pulse Ox O2 Del Method 08/05/23 08:22 36.8 C 87 18 147/94 H 95 Room Air 08/05/23 08:09 36.8 C 77 18 144/91 H 93 Room Air 08/05/23 03:34 36.5 C 74 18 121/85 95 Room Air 08/05/23 00:00 66 08/04/23 23:05 36.7 C 85 144/94 H 98 Room Air Laboratory Results PRP, CBC - ordered, pending PG Care Time/CCT Total # of Minutes Spent Total Time Spent with Patient: Total time spent is greater than 50% in coordination of care (as documented) at patient's floor/unit and/or counseling patient: Coding Level of Care Code 41287 SUB INP/OBS CARE 3/50MIN Diagnoses ESRD on dialysis N18.6; Z99.2 Anemia in chronic kidney disease N18.9; D63.1 Hyperphosphatemia E83.39 Coronary artery disease I25.10
--- NOTE | 2023-08-05 08:46 | Pre Anesthesia Assessment ---
Date of Service August 05, 2023 Pre Sedation Assessment Vital Signs Temp Pulse Pulse Resp BP Pulse Ox Pulse Ox 08/05/23 08:22 98.2 F 87 18 147/94 H 95 08/05/23 08:09 98.2 F 77 18 144/91 H 93 08/05/23 03:34 97.7 F 74 18 121/85 95 08/05/23 00:00 66 08/04/23 23:05 98.1 F 85 144/94 H 98 08/04/23 19:27 98.4 F 73 18 132/95 98 08/04/23 18:00 95 08/04/23 16:00 97.9 F 85 19 147/93 H 97 08/04/23 11:55 98.2 F 85 17 147/99 H 96 O2 Del Method O2 Del Method 08/05/23 08:22 Room Air 08/05/23 08:09 Room Air 08/05/23 03:34 Room Air 08/05/23 00:00 08/04/23 23:05 Room Air 08/04/23 19:27 Room Air 08/04/23 18:00 Room Air 08/04/23 16:00 Room Air 08/04/23 11:55 Room Air Cardiovascular + regular rate Respiratory + respiratory effort normal Pre-Sedation Airway Assessment Smoking Status: Never smoker Hx Sleep Apnea: No Hx Difficult Intubation: No Short, Thick Neck: No Thyromental Distance: > or= 3.5 Finger Breadths Oral Cavity: + Chipped Teeth Mallampati Class: III ASA: ASA4 Procedure Planning Contraindications for Sedation: none Current Medications Reviewed: Yes Notes The planned sedation has been discussed with the patient. Informed Consent was obtained. I have identified the patient, determined the appropriateness of sedation and have assessed the patient immediately prior to the procedure. All medicine(s) and interventions are by my order.
[2023-08-05] MEDS: fentaNYL citrate PF 100 MCG/2 ML VIAL ONE ×2 (09:29→09:54)
[2023-08-05] MEDS: HEPARIN (PORCINE) 1000 UNIT/ML 10 ML (CATH LAB USE ONLY) ONE (09:29)
[2023-08-05] MEDS: MIDAZOLAM HCL 1 MG/ML 2ML VIAL ONE ×2 (09:30→09:31)
[2023-08-05] MEDS: niCARdipine HCL INJ 2.5 MG/ML 10 ML AMP ONE (09:31)
[2023-08-05] MEDS: NITROGLYCERIN/D5W 100MCG/ML 20ML SYR ONE (09:31)
[2023-08-05] MEDS: OPTIRAY 350 ONE (09:31)
[2023-08-05] MEDS: diphenhydrAMINE 50 MG/ML VIAL ONE (09:31)
--- NOTE | 2023-08-05 09:41 | Post Anesthesia Assessment ---
Date of Service August 05, 2023 Post Sedation Assessment Vital Signs Temp Pulse Pulse Resp BP Pulse Ox Pulse Ox 08/05/23 08:22 98.2 F 87 18 147/94 H 95 08/05/23 08:09 98.2 F 77 18 144/91 H 93 08/05/23 03:34 97.7 F 74 18 121/85 95 08/05/23 00:00 66 08/04/23 23:05 98.1 F 85 144/94 H 98 08/04/23 19:27 98.4 F 73 18 132/95 98 08/04/23 18:00 95 08/04/23 16:00 97.9 F 85 19 147/93 H 97 08/04/23 11:55 98.2 F 85 17 147/99 H 96 O2 Del Method O2 Del Method 08/05/23 08:22 Room Air 08/05/23 08:09 Room Air 08/05/23 03:34 Room Air 08/05/23 00:00 08/04/23 23:05 Room Air 08/04/23 19:27 Room Air 08/04/23 18:00 Room Air 08/04/23 16:00 Room Air 08/04/23 11:55 Room Air Recovery Score Activity: Moves 4 extremities Respiration: Deep Breath/Cough Circulation: +/-20% PreAnes Value Consciousness: Fully Awake Oxygen Saturation: O2 needed for >90% Discharge Sedation Level of Care: Fast Track Phase II Post Sedation Plan On clinical assessment, the patient appears to have tolerated the sedation without complications. Patient is recovering as anticipated. Patient will continue to be monitored by nursing and may be discharged when sedation discharge criteria are met per below protocol. Upon Completions of procedure up to 15 minutes continue every 5 minute vital signs and the P.A.R. score; then discharge to a Phase I or Fast Track to Phase II per the following guidelines: * Discharge Patient to appropriate Phase II area if PAR is 8 or greater or return to pre- procedure baseline. The post - procedure orders will be as directed. * If PAR score is less than 8 or not return to pre-procedure baseline then patient will follow Phase I monitoring till PAR is reached for Phase II. The Phase I may be done in procedure room or may call to secure a Phase I area. * If naloxone or flumazenil are used for reversal, hold in Phase I for continued monitoring from when last reversal dose was given for a minimum of 60 minutes or longer pending the nurse and/or physician discretion of patient condition before discharge to Phase II. Please call the Sedation Physician to re-evaluate and complete post-note for discharge to Phase II area. Do NOT discharge from procedure sedation or Phase 1 until post- sedation evaluation note is complete by procedure /sedation MD Sedation Discharge Instructions to be given to the patient at discharge to home.
--- NOTE | 2023-08-05 09:51 | Cardiac Catheterization ---
[facility] Data: Emt P Cardiac Status Clinical evaluation leading to the procedure CAD Presenation: Non STEMI Anginal Classification: CCS IV Diagnostic Physicians Name: Finn Tineo MD Closure Device Recommendations: Medical Therapy and/or Counseling and Valve Replacement Cardiac Cath Procedure Full Procedure Date August 05, 2023 Pre-Procedure Diagnosis Pre-Procedure Diagnosis: Acute Coronary Syndrome AUC Score AUC Score: 7 Post-Procedure Diagnosis Post-Procedure Diagnosis: Severe CAD and Elevated Intracardiac Pressures Procedure(s) Performed Procedure(s) Performed: Coronary Angiography, Left Heart Cath and Ultrasound Guided Vascular Access Service Unit Operator Finn Tineo MD Roller Bearing Inspector(s) Abdirashid Estimated Blood Loss Estimated Blood Loss: None Medication(s) Medication(s): Fentanyl, Heparin, Lidocaine 1%, Nicardipine, Nitroglycerin and Versed Summary of Findings Indication: NSTEMI, valvular heart disease, cardiomyopathy Access: Attempted ultrasound guided access of ulnar artery unsuccessful. 5 Fr right RN [facility] under ultrasound guidance Catheters: JL 4, JR4 Findings: LM -normal caliber, no significant disease LAD -medium caliber, calcified, 60 to 70% mid segment stenosis at takeoff of D2 distal vessel without significant disease and extends to apex. Circumflex -medium caliber vessel, calcified 40% ostial, 30% diffuse proximal to mid disease. Small OM 3 with 50% ostial stenosis. Left PLB without significant disease. RCA -dominant, large caliber, calcified, 20 to 30% distal. RPDA, RPL without significant disease. LVEDP -22 Aortic valve peak to peak pullback gradient: 26 mmHg Arterial Closure: Mynx Summary: 1. Moderate to severe single vessel coronary artery disease -60 to 70% calcified mid LAD at takeoff of D2 2. Elevated intracardiac filling pressure 3. Moderate Aortic stenosis Recommendations: No acute or high risk CAD identified. Continue medical management of chronic mid LAD disease. Bypass of LAD could be considered if surgical valve replacement need in future. Hemodynamics Rest Ao:: 97/64/78 Final Ao: 109/75/86 LV: 133/22 Recommendations Recommendations: Medical Therapy and/or Counseling and Valve Replacement Specimens Specimens: None Radiation Exposure (mGy) 1077 Contrast (mls) 70 Anesthesia Moderate 5224-5337 Procedural Complication(s) None Disposition PCU I attest to the content of the Intraoperative Record and any orders documented therein. Any exceptions are noted below. [facility] Card Cath Procedure Codes Cardiac Catheterization Procedure 1: Cardiovascular Cath Procedures: 53850 Coronaries and LHC (+/-LV) Therapeutic Services & Ancillary Procedure 1: Cardiovascular Tx and Anc Procedures: 92707 Ultrasonic Guidance Vascular Access Moderate Sedation Procedure 1: Sedation/Anesthesia: 43067 Mod Sedation by the same physician;Init15 Min Child Age 5 & Up PG Care Time/CCT Total # of Minutes Spent Total Time Spent with Patient: Total time spent is greater than 50% in coordination of care (as documented) at patient's floor/unit and/or counseling patient:
[2023-08-05 11:43] LABS: Hematocrit (blood only) 25.8 % (42.0-52.0); Hemoglobin 7.9 g/dl (14.0-18.0); Mean Corpuscular Hemoglobin 30.9 pg (25.0-34.0); Mean Corpuscular Hgb Conc 30.6 g/dL (32.0-36.0); Mean Corpuscular Volume 100.8 fL (80.0-100.0); Mean Platelet Volume 10.9 fL (9.4-12.4); Nucleated RBC # (auto) 0.08 K/uL (0.00-0.12); Nucleated RBC % (auto) 0.8 %; Platelet Count 150 K/uL (130-400); RDW Coefficient of Variation 16.4 % (11.5-14.5); Red Blood Count 2.56 M/uL (4.70-6.10); White Blood Count 10.06 K/ul (4.8-10.8)
[2023-08-05 11:59] LABS: BUN Creatinine Ratio 5.6 (10-20); Calcium 7.7 mg/dl (8.6-10.3); Est GFR (African American) 4.6 ml/min; Est GFR (Non-African American) 3.9 ml/min; Potassium 4.2 mmol/L (3.5-5.1)
[2023-08-05] MEDS: EPOETIN ALFA 10,000 UNITS/ML VIAL IV ONE (15:11)
--- NOTE | 2023-08-05 16:32 | Cardiology Progress Note ---
Date of Service August 05, 2023 Assessment & Plan (1) Valvular heart disease: Plan: Moderate by pullback gradient on cath today Moderate MS on echo 2. Coronary artery [id number] to 70% mid LAD 3. Nonischemic cardiomyopathyEF 35 to 40% 4. End-stage renal disease on HD 5. Chronic osteomyelitis 6. Anemia 7. Hypertension 8. Psoriatic arthritis No acute or high risk findings on coronary angiography today No apparent access site complications post procedure Plan on medical management of his stable CAD. Has nonsevere valvular heart disease which will need close surveillance but do not feel needs valve replacement at this time. From a cardiac standpoint can proceed with noncardiac surgery (? surgical debridement for chronic osteo) as needed. Continue aspirin, statin Continue Toprol-XL. Consider adding Entresto Follow-up with Dr. Pollack as an outpatient Admission and Anticipated Discharge Date Admission Date: August 01, 2023 Subjective Seen this afternoon after dialysis. Up walking around room. No chest pain. Denies significant pain at rest or groin access sites. Telemetry reviewedno events. Review of Systems Review of Systems: All systems reviewed & are unremarkable except as noted in HPI & below Physical Exam Physical Exam: The patient is alert and oriented. Mood and affect appeared normal. He answered all questions appropriately. HEENT: sclerae are anicteric. Lungs: Clear to auscultation bilaterally. Cardiac: Heart demonstrates a regular rate and rhythm. Normal S1 and S2. High-pitched crescendo systolic murmur heard best at the left 2nd intercostal space.. Pulses: Poor radial pulses bilaterally. Functioning AV fistula in left forearm. Palpable pulse and thrill. Extremities: Left above knee amputation. No hematoma at right ulnar artery access site attempt Results & Data Vital Signs (Past 12 Hours) Vital Signs Temp Pulse Pulse Pulse Pulse Resp BP 08/05/23 15:34 98.4 F 68 08/05/23 15:00 56 L 113/80 08/05/23 14:30 70 102/77 08/05/23 14:00 74 101/78 08/05/23 13:30 59 L 108/66 08/05/23 13:20 73 120/80 08/05/23 12:43 98.6 F 65 08/05/23 12:14 89 20 08/05/23 11:44 98.1 F 76 20 08/05/23 11:14 70 18 08/05/23 10:59 70 18 08/05/23 10:44 72 18 08/05/23 10:29 70 18 08/05/23 10:15 68 20 08/05/23 09:45 98.2 F 76 18 08/05/23 08:22 98.2 F 87 18 08/05/23 08:09 98.2 F 77 18 BP Pulse Ox O2 Del Method O2 Flow Rate 08/05/23 15:34 116/81 08/05/23 15:00 08/05/23 14:30 08/05/23 14:00 08/05/23 13:30 08/05/23 13:20 08/05/23 12:43 08/05/23 12:14 141/93 H 96 Nasal Cannula 2 08/05/23 11:44 115/80 96 Nasal Cannula 2 08/05/23 11:14 121/83 95 Nasal Cannula 2 08/05/23 10:59 122/79 95 Nasal Cannula 2 08/05/23 10:44 115/86 96 Nasal Cannula 2 08/05/23 10:29 103/79 96 Nasal Cannula 2 08/05/23 10:15 127/88 93 Nasal Cannula 2 08/05/23 09:45 113/83 94 Nasal Cannula 3 08/05/23 08:22 147/94 H 95 Room Air 08/05/23 08:09 144/91 H 93 Room Air PG Care Time/CCT Total # of Minutes Spent Total Time Spent with Patient: Total time spent is greater than 50% in coordination of care (as documented) at patient's floor/unit and/or counseling patient: Coding Level of Care Code 12510 SUB INP/OBS CARE 3/50MIN Diagnoses Valvular heart disease I38
--- NOTE | 2023-08-05 16:56 | Hospitalist Progress Note ---
Date of Service August 05, 2023 Assessment & Plan (1) Chest pain: Plan: 58 y/o with ESRD admitted with chest pain and elevated troponin - etiology of his chest pain unclear Could be CAD and has multiple risk factors or related to his valvular disease -continue ASA daily -had course of IV heparin beginning of hospitalization, stopped 08/02 -trop downtrended - down to 151 -metoprolol tartrate 25mg PO BID -atorvastatin 40mg PO daily -lisinopril had previously been stopped by Dr. Quijano because of problems with high calcium, resumed amlodipine 5 mg bid. entresto recommended by cardiology - will need to d/w studio grip Lipid panel - LDL 86, HbA1C not accurate in setting of dialysis and does not appear diabetic given random glucose measurements < 100 -TTE with mod reduced EF 35-40%, mild AR and mod-severe , mild MR and mod MS, elevated RVSP and mildly dilated IVC -consulted cardiology - coronary angiogram 08/[address] Tineo to evaluate coronaries, better evaluate valvular disease Per Dr. Tineo: "Moderate by pullback gradient on cath today Moderate MS on echo 2. Coronary artery to 70% mid LAD 3. Nonischemic cardiomyopathyEF 35 to 40%" LAD lesion was not intervened on Discussed with Dr. Tineo - appropriate for discharge home, follow up with Dr. Pollack, medical treatment and monitoring of CAD, valvular disease, referral to cardiac surgeon if progressing to symptomatic, ok to have surgery (to address foot, for example), consider entresto He does seem to have probable chronic osteo of R foot stump - has intermittent ulcers that sometimes drain, these always resolve with course of doxy and staying off foot more. Has been followed by Dr. Goodwin and primary care for this - encouraged him to see Dr. Goodwin soon. Currently on po doxy and improved. Discussed how if he were to need valve replacement the R stump would need to be evaluated and potentially resected because there can't be any infection prior to valve surgery. Currently preserving his ambulation is a priority. Would have discharged today but groggy, procedural sedation, cannot drive self home, no one else at home and he will arrange friend to help him tomorrow. Should go home tomorrow. (2) Anemia in chronic kidney disease: Plan: Hgb 8.8-->7.9 (historically 8-10) (3) ESRD on hemodialysis: Plan: Continue sodium biarb Continue Ramezlamer Consulted nephrology - tiw dialysis indicated but patient only wants to go 2x a week. Some volume overload on echo. -L forearm AVF infiltrated 08/02 and unable to complete dialysis -succesful HD Saturday after cath -electrolytes and volume status acceptable (4) GERD (gastroesophageal reflux disease): Plan: Continue pantoprazole (5) Hypertension: Plan: Continue amlodipine increased to bid - see above (6) Chronic constipation: Plan: Continue linaclotide (7) Psoriatic arthritis: Plan: Patent reports this is actually rheumatoid arthritis under Dr Richardson Continue chronic prednisone (8) Chronic prescription opiate use: Plan: Continue his usual morphine ER Plan R shoulder pain - ordered xrays planned as outpatient - calcific tendonitis and OA, no fracture/dislocation R foot/ankle stump ulcers present on admission, history of osteomyelitis - chronic osteo, he states he takes doxycycline whenever he has drainage or it opens up -Xray reviewed - no fracture or visible osteo -examined wound 08/03, consult wound care -continue doxycycline VTE prophylaxis - SQ heparin Admission and Anticipated Discharge Date Admission Date: August 01, 2023 Subjective seen x 2 post cath, initially very groggy post procedure, later on HD still a bit groggy but able to have conversation fistula working fine today no chest pain or dyspnea Physical Exam 2 Physical Exam: PHYSICAL EXAMINATION Last 24h vital signs reviewed, see documentation in flowsheet General: comfortable appearing, no distress, lying down getting HD HEENT: Normocephalic, atraumatic, pupils round and equal, sclerae anicteric, no conjunctival injection, moist mucus membranes Lungs: Normal respiratory effort. Heart: reg, syst M Abdomen: nondistended. Extremities: Warm, dry, well-perfused. No RLE extremity edema. status post left BKA wearing prosthesis, right lower extremity in splint/ brace - 08/03 exam: removed, ankle stump with two ulcers anteriorly mild whitish drainage from medial ulcer, no erythema not boggy left forearm AV fistula in use Neuro: Alert and oriented x situation and conversant but sleepy, face symmetric, moves 4 extremities well Psych: Normal affect and behavior Results & Data Results & Data Vital Signs (Past 12 Hours) Vital Signs Temp Pulse Pulse Pulse Pulse Resp BP 08/05/23 16:24 78 18 08/05/23 15:34 36.9 C 68 08/05/23 15:00 56 L 113/80 08/05/23 14:30 70 102/77 08/05/23 14:00 74 101/78 08/05/23 13:30 59 L 108/66 08/05/23 13:20 73 120/80 08/05/23 12:43 37.0 C 65 08/05/23 12:14 89 20 08/05/23 11:44 36.7 C 76 20 08/05/23 11:14 70 18 08/05/23 10:59 70 18 08/05/23 10:44 72 18 08/05/23 10:29 70 18 08/05/23 10:15 68 20 08/05/23 09:45 36.8 C 76 18 08/05/23 08:22 36.8 C 87 18 08/05/23 08:09 36.8 C 77 18 BP Pulse Ox O2 Del Method O2 Flow Rate 08/05/23 16:24 129/83 95 Room Air 08/05/23 15:34 116/81 08/05/23 15:00 08/05/23 14:30 08/05/23 14:00 08/05/23 13:30 08/05/23 13:20 08/05/23 12:43 08/05/23 12:14 141/93 H 96 Nasal Cannula 2 08/05/23 11:44 115/80 96 Nasal Cannula 2 08/05/23 11:14 121/83 95 Nasal Cannula 2 08/05/23 10:59 122/79 95 Nasal Cannula 2 08/05/23 10:44 115/86 96 Nasal Cannula 2 08/05/23 10:29 103/79 96 Nasal Cannula 2 08/05/23 10:15 127/88 93 Nasal Cannula 2 08/05/23 09:45 113/83 94 Nasal Cannula 3 08/05/23 08:22 147/94 H 95 Room Air 08/05/23 08:09 144/91 H 93 Room Air Laboratory Results 08/05/23 11:11 08/05/23 11:11 PG Care Time/CCT Total # of Minutes Spent Total Time Spent with Patient: Total time spent is greater than 50% in coordination of care (as documented) at patient's floor/unit and/or counseling patient: Coding Level of Care Code 70306 SUB INP/OBS CARE MIN Diagnoses Chest pain R07.9 Anemia in chronic kidney disease N18.9; D63.1 ESRD on hemodialysis N18.6; Z99.2 GERD (gastroesophageal reflux disease) K21.9 Hypertension I10 Chronic constipation K59.09 Psoriatic arthritis L40.50 Chronic prescription opiate use Z79.891
[2023-08-05] MEDS: HEPARIN SOD 5,000 UNIT/0.5 ML VIAL SQ SCH (22:13)
[2023-08-05] MEDS: POLYETHYLENE (MIRALAX) 17 GM PACK PO PRN (23:31)
[2023-08-06 06:35] LABS: Hematocrit (blood only) 27.2 % (42.0-52.0); Hemoglobin 8.4 g/dl (14.0-18.0); Mean Corpuscular Hemoglobin 31.5 pg (25.0-34.0); Mean Corpuscular Hgb Conc 30.9 g/dL (32.0-36.0); Mean Corpuscular Volume 101.9 fL (80.0-100.0); Mean Platelet Volume 11.2 fL (9.4-12.4); Nucleated RBC # (auto) 0.19 K/uL (0.00-0.12); Nucleated RBC % (auto) 1.7 %; Platelet Count 161 K/uL (130-400); RDW Coefficient of Variation 16.6 % (11.5-14.5); RDW Standard Deviation 61.6 fL (36.4-46.3); Red Blood Count 2.67 M/uL (4.70-6.10)
[2023-08-06 07:07] LABS: BUN Creatinine Ratio 5.6 (10-20); Calcium 8.3 mg/dl (8.6-10.3); Creatinine Clr Calc Pharmacy 9.4 ml/min; Est GFR (African American) 6.5 ml/min; Est GFR (Non-African American) 5.6 ml/min; Potassium 4.2 mmol/L (3.5-5.1)
--- NOTE | 2023-08-06 08:30 | Nephrology Progress Note ---
Date of Service August 06, 2023 Assessment & Plan (1) ESRD on dialysis: Plan: * Volume status and electrolyte balance are acceptable this morning. No acute indication for HD today * Outpatient Rx: TT 2 hours, 180 optiflux, 2K 2.5Ca, 250/400, EDW 82 kg * Advised patient to return to his outpatient HD schedule on at [facility] (2) Anemia in chronic kidney disease: Plan: * Hgb is trending up. BECKIE provided w/ HD 08/05/23 * 08/02 iron saturation 41% w/ ferritin 691. No acute indication for IV iron at this time (3) Hyperphosphatemia: Plan: * Maintained on Auryxia as outpatient. Unable to tolerate other binders in the past * Continue low phosphorus diet. (4) Coronary artery disease: Plan: * Admitted w/ angina and elevated troponin * 08/04 cardiac catheterization: LVEF 35-40%, mid LAD 60-70%, moderate , moderate MS. Medical management recommended (ASA, statin, Toprol XL) Admission and Anticipated Discharge Date Admission Date: August 01, 2023 Subjective Mr. Hernandez was evaluated in his hospital room this morning. His cardiac catheterization yesterday revealed moderate ASCVD and valvular heart disease. No intervention was needed. Mr. Hernandez was dialyzed yesterday following the catheterization for 1.5 L UF. He currently denies angina and is anxious to return home today Review of Systems Constitutional: no fever Eyes: no problem reported Ear, Nose, Mouth, Throat: no problem reported Respiratory: no cough and no dyspnea Cardiovascular: no chest pain Gastrointestinal: no abdominal pain, no nausea, no vomiting and no diarrhea/loose stools Physical Exam Constitutional: no acute distress Eyes: PERRL, conjunctivae normal, anicteric sclerae ENMT: external ear and nose normal, oropharynx normal Neck: trachea midline, no thyromegaly Respiratory: normal respiratory effort, lungs clear to auscultation Cardiovascular: RRR, no murmur, no edema Extremities: + AV fistula (L forearm AVG + bruit) Gastrointestinal (Abdomen): normal bowel sounds, soft, nontender, no hepatosplenomegaly Neurologic: Speech / Cognition: normal speech and normal cognition Results & Data Vital Signs (Past 12 Hours) Vital Signs Temp Pulse Pulse Resp BP Pulse Ox O2 Del Method 08/06/23 07:33 36.7 C 72 18 114/87 93 Room Air 08/06/23 02:45 36.8 C 64 18 118/90 96 Room Air 08/06/23 00:00 77 08/05/23 23:00 36.8 C 82 18 128/91 100 Room Air Laboratory Results Laboratory Results - last 24 hr 08/05/23 08/06/23 11:11 06:11 WBC 10.06 10.90 H RBC 2.56 L 2.67 L Hgb 7.9 L 8.4 L Hct 25.8 L 27.2 L MCV 100.8 H 101.9 H MCH 30.9 31.5 MCHC 30.6 L 30.9 L RDW Std Deviation 61.0 H 61.6 H RDW Coeff of Marcelino 16.4 H 16.6 H Plt Count 150 161 MPV 10.9 11.2 Absolute Nucleated RBC 0.08 0.19 H Nucleated RBC % (auto) 0.8 1.7 Sodium 141 140 Potassium 4.2 4.2 Chloride 101 103 Carbon Dioxide 29 26 Anion Gap 11 11 BUN 69 H 51 H Creatinine 12.25 H* D 9.13 H* D Est Cr Clr Drug Dosing 7.0 9.4 Est GFR ( Amer) 4.6 6.5 Est GFR (Non-Af Amer) 3.9 5.6 BUN/Creatinine Ratio 5.6 L 5.6 L Glucose 80 100 H Calcium 7.7 L 8.3 L PG Care Time/CCT Total # of Minutes Spent Total Time Spent with Patient: Total time spent is greater than 50% in coordination of care (as documented) at patient's floor/unit and/or counseling patient: Coding Level of Care Code 89128 SUB INP/OBS CARE 3/50MIN Diagnoses ESRD on dialysis N18.6; Z99.2 Anemia in chronic kidney disease N18.9; D63.1 Hyperphosphatemia E83.39 Coronary artery disease I25.10
[2023-08-06] MEDS: predniSONE 5 MG TAB PO ONE (14:14)
--- NOTE | 2023-08-06 15:01 | Ultrasound Report ---
BILATERAL LOWER EXTREMITY VENOUS DOPPLER CLINICAL HISTORY: sedentary lifestyle, chest pain, eval DVT COMPARISON STUDY: No previous studies for comparison. TECHNIQUE: Sonography of the deep venous system of the bilateral lower extremities was performed. Co mpression and augmentation were evaluated. FINDINGS: The bilateral common femoral, superficial femoral and popliteal veins were compressible. A ugmentation was normal. Flow was shown within the right calf vessels. IMPRESSION: No evidence of deep venous thrombus within the bilateral lower extremities. ACT 112: Negative or not required by law. Electronically signed by: Ajay Montiel M.D. 08/06/2023 2:59 PM
--- NOTE | 2023-08-06 15:09 | Nuclear Medicine Report ---
NM pul perfusion HISTORY: 58 years-old Male chest pain/dyspnea, ESRD; assess prob 4 PE acute chest pain or shortness of breath COMPARISON: Chest CT 09/25/2018 TECHNIQUE: Nuclear medicine perfusion study was obtained following the intravenous administration of 5.3 mCi technetium 99 MAA FINDINGS: No large segmental perfusion defects identified. IMPRESSION: Low probability for pulmonary embolus ACT 112: Negative or not required by law. The above report was generated using voice recognition software. It may contain grammatical, syntax o r spelling errors. Electronically signed by: Matt Steele M.D. 08/06/2023 3:07 PM
--- NOTE | 2023-08-06 19:26 | Hospitalist Progress Note ---
Date of Service August 06, 2023 Assessment & Plan (1) Chest pain: Plan: Admitted after having had 2+ days of continuous chest pain at home Peak troponin 333, falling to 150 most recently Treated as an NSTEMI with 48-hour course of IV heparin (stopped 08/02) Remains on aspirin 81mg daily, meto succ daily, lipitor 40mg daily (LDL 86 this admission) Echo - EF 35-40%, mild AR and mod-severe , mild MR and mod MS, elevated RVSP and mildly dilated IVC s/p heart cath yesterday by Dr Finn Tineo with results as noted below LAD lesion was not intervened on [place] not to be acute and not the cause of current symptoms Cardiology advised close outpatient f/u to monitor ongoing symptoms (either from CAD or his valvular disease) If his chest pain was not due to the CAD seen on cath - other etiology?? Performed VTE w/u today -- patient reluctant to have more IV contrast today (ie CTA chest) thus performed VQ scan --> low prob for PE LE venous dopplers neg for DVT If not pulmonary or cardiac -- musculoskeletal? But this wouldn't cause his troponin to rise Doubt GI / GERD He will need very close f/u post-discharge with [facility] [place] Cardiology (2) Type 2 SD (myocardial infarction): Plan: At minimum had myocardial demand ischemia at time of admission Can't rule out ACS but felt to not have such per cardiology Peak troponin 333 s/p cath with results as below (3) Coronary artery disease: Plan: s/p heart cath on 08/05/23 - Dr Tineo. Findings: LM -normal caliber, no significant disease LAD -medium caliber, calcified, 60 to 70% mid segment stenosis at takeoff of D2 distal vessel without significant disease and extends to apex. Circumflex -medium caliber vessel, calcified 40% ostial, 30% diffuse proximal to mid disease. Small OM 3 with 50% ostial stenosis. Left PLB without significant disease. RCA -dominant, large caliber, calcified, 20 to 30% distal. RPDA, RPL without significant disease. LVEDP -[address] Tineo the 60-70% LAD lesion unlikely causing symptoms. (4) Valvular heart disease: Plan: moderate moderate MS these will need to be followed closely over time by cardiology will need to see which cardiology group he would like to follow with (5) Cardiomyopathy: Plan: EF 35-40% on echo this admission with septal hypokinesis and valvular disease as well (mod , mod MS). s/p heart cath with results as below. cont metoprolol succ 50mg qam. would patient need low-dose Entresto?? defer that decision to cardiology/nephrology. HD twice weekly for volume control. (6) Anemia in chronic kidney disease: Plan: Hgb 8.8-->7.9 (historically 8-10) Fe studies acceptable; no IV venofer at this time Check B12/folate in am (7) ESRD on hemodialysis: Plan: Continue sodium bicarbonate supplementation BID Continue Sevelamer TID with meals Appreciate nephrology assistance s/p HD yesterday following his heart cath with 1.5 L of UF removed given his elevated end-diastolic pressure on cath - HD 3 days/week?? will d/w Dr Angel next scheduled HD treatment is in [place] on , 08/07 (8) GERD (gastroesophageal reflux disease): Plan: Continue pantoprazole (9) Hypertension: Plan: Continue amlodipine bid Continue metoprolol succ 50mg daily Continue flomax 0.4mg BID (10) Chronic constipation: Plan: Continue linaclotide (11) Psoriatic arthritis: Plan: [facility] Continue chronic prednisone 10mg/day Did not receive stress dose steroids this admission - his fatigue, weakness, etc could be from needing stress dose steroids Thus, give additional 25mg of prednisone today, 20mg tomorrow, and wean back to usual 10mg/day dose No evidence of any inflammatory arthritis today on exam (12) Chronic prescription opiate use: Plan: Continue his usual morphine ER 30mg BID (13) Macrocytic anemia: Plan: previous h/o B12 and folate deficiencies repeat levels in am and replete if needed (14) Chronic ulcer of right ankle: Plan: right ankle stump ulceration - chronic present on admission previous history of osteomyelitis of the foot leading to amputation Dr Goodwin had done previous surgery on his foot/ankle 06/08/22 -- report from that surgery --> POSTOPERATIVE DIAGNOSES: 1. Right foot osteomyelitis of the distal talus. 2. Tenosynovitis of the flexor hallucis longus tendon with degradation and tearing of the distal tendon. 3. A 3 cm diameter x 0.4 cm depth ulceration, right distal residual foot. 4. 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 5. Abscess, dorsal and medial right foot. 6. Osteomyelitis of the right calcaneus. PROCEDURE: 1. Right foot excision/exostectomy osteomyelitis of the talus. 2. Tenosynovectomy of the flexor hallucis longus tendon. 3. Partial resection flexor hallucis longus tendon. 4. Excision/exostectomy osteomyelitis of the calcaneus. 5. Debridement 3 cm diameter x 0.4 cm depth foot ulcer. 6. Evacuation abscess, dorsal and medial right foot. 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 (18) Peripheral arterial disease: (19) Below-knee amputation of left lower extremity: Plan VTE prophylaxis - SQ heparin 5000 BID observe overnight home tomorrow Admission and Anticipated Discharge Date Admission Date: August 01, 2023 Results & Data Results & Data Vital Signs (Past 12 Hours) Vital Signs Temp Pulse Pulse Resp BP Pulse Ox O2 Del Method 08/06/23 19:21 36.6 C 66 18 130/79 100 Room Air 08/06/23 15:10 36.8 C 72 18 123/92 94 Room Air 08/06/23 15:00 81 08/06/23 10:47 36.7 C 84 18 134/100 94 Room Air 08/06/23 08:00 77 08/06/23 07:33 36.7 C 72 18 114/87 93 Room Air Laboratory Results Laboratory Results - last 24 hr 08/06/23 06:11 WBC 10.90 H RBC 2.67 L Hgb 8.4 L Hct 27.2 L MCV 101.9 H MCH 31.5 MCHC 30.9 L RDW Std Deviation 61.6 H RDW Coeff of Marcelino 16.6 H Plt Count 161 MPV 11.2 Absolute Nucleated RBC 0.19 H Nucleated RBC % (auto) 1.7 Sodium 140 Potassium 4.2 Chloride 103 Carbon Dioxide 26 Anion Gap 11 BUN 51 H Creatinine 9.13 H* D Est Cr Clr Drug Dosing 9.4 Est GFR ( Amer) 6.5 Est GFR (Non-Af Amer) 5.6 BUN/Creatinine Ratio 5.6 L Glucose 100 H Calcium 8.3 L PG Care Time/CCT Total # of Minutes Spent Total Time Spent with Patient: Total time spent is greater than 50% in coordination of care (as documented) at patient's floor/unit and/or counseling patient: Coding Level of Care Code 93632 SUB INP/OBS CARE 3/50MIN Diagnoses Chest pain R07.9 Type 2 SD (myocardial infarction) I21.A1 Coronary artery disease I25.10 Valvular heart disease I38 Cardiomyopathy I42.9 Anemia in chronic kidney disease N18.9; D63.1 ESRD on hemodialysis N18.6; Z99.2 GERD (gastroesophageal reflux disease) K21.9 Hypertension I10 Chronic constipation K59.09 Psoriatic arthritis L40.50 Chronic prescription opiate use Z79.891 Macrocytic anemia D53.9 Chronic ulcer of right ankle L97.319 Acquired absence of right foot Z89.431 Acquired absence of right finger(s) Z89.021 History of nephrectomy, left Z90.5 Peripheral arterial disease I73.9 Below-knee amputation of left lower extremity S88.112A
[2023-08-06] MEDS: GLYCERIN ADULT 12 SUPP/BOX SUPP PR ONE (22:07)
[2023-08-07 06:35] LABS: Hematocrit (blood only) 26.8 % (42.0-52.0); Hemoglobin 8.1 g/dl (14.0-18.0); Mean Corpuscular Hemoglobin 30.6 pg (25.0-34.0); Mean Corpuscular Hgb Conc 30.2 g/dL (32.0-36.0); Mean Corpuscular Volume 101.1 fL (80.0-100.0); Mean Platelet Volume 11.5 fL (9.4-12.4); Nucleated RBC # (auto) 0.07 K/uL (0.00-0.12); Nucleated RBC % (auto) 0.6 %; Platelet Count 170 K/uL (130-400); RDW Coefficient of Variation 16.2 % (11.5-14.5); RDW Standard Deviation 59.1 fL (36.4-46.3); Red Blood Count 2.65 M/uL (4.70-6.10); White Blood Count 11.37 K/ul (4.8-10.8)
[2023-08-07 07:03] LABS: C Reactive Protein 1.72 mg/dl (0-0.5)
[2023-08-07 07:18] LABS: Thyroid Stimulating Hormone 1.426 uIu/ml (0.300-4.500)
[2023-08-07 07:20] LABS: Folate (Folic Acid),Ser orPlas 7.52 ng/ml (>5.38)
--- NOTE | 2023-08-07 08:36 | Nephrology Progress Note ---
Date of Service August 07, 2023 Assessment & Plan (1) ESRD on dialysis: Plan: * Volume status and electrolyte balance are acceptable this morning. No acute indication for HD today * Outpatient Rx: TT 2 hours, 180 optiflux, 2K 2.5Ca, 250/400, EDW 82 kg * Advised patient to return to his outpatient HD schedule on at [facility] * Discussed the benefits of 3x/week dialysis for reducing volume status and cardiac strain. Mr. Hernandez voiced understanding but stated that he wishes to only dialyze 2x/week for two hours. He feels that more dialysis will reduce his quality of life (2) Anemia in chronic kidney disease: Plan: * Hgb is trending up. BECKIE provided w/ HD 08/05/23 * 08/02 iron saturation 41% w/ ferritin 691. No acute indication for IV iron at this time (3) Hyperphosphatemia: Plan: * Maintained on Auryxia as outpatient. Unable to tolerate other binders in the past * Continue low phosphorus diet. (4) Coronary artery disease: Plan: * Admitted w/ angina and elevated troponin * 08/04 cardiac catheterization: LVEF 35-40%, mid LAD 60-70%, moderate , moderate MS. Medical management recommended (ASA, statin, Toprol XL) Admission and Anticipated Discharge Date Admission Date: August 01, 2023 Subjective Mr. Hernandez was evaluated in his hospital room this morning. He denied dyspnea, angina or uremic symptoms. He remains anxious to return home Review of Systems Constitutional: no fever Eyes: no problem reported Ear, Nose, Mouth, Throat: no problem reported Respiratory: no cough and no dyspnea Cardiovascular: no chest pain Gastrointestinal: no abdominal pain, no nausea, no vomiting and no diarrhea/loose stools Physical Exam 2 Constitutional: no acute distress Eyes: PERRL, conjunctivae normal, anicteric sclerae ENMT: external ear and nose normal, oropharynx normal Neck: trachea midline, no thyromegaly Respiratory: normal respiratory effort, lungs clear to auscultation Cardiovascular: RRR, no murmur, no edema Extremities: + AV fistula (L forearm AVG + bruit) Gastrointestinal (Abdomen): normal bowel sounds, soft, nontender, no hepatosplenomegaly Neurologic: Speech / Cognition: normal speech and normal cognition Results & Data Vital Signs (Past 12 Hours) Vital Signs Temp Pulse Pulse Resp BP Pulse Ox O2 Del Method 08/07/23 08:09 36.7 C 74 20 132/83 96 Room Air 08/07/23 03:21 36.7 C 93 H 16 136/107 H 98 Room Air 08/07/23 00:14 65 08/06/23 23:18 36.8 C 81 18 116/80 99 Room Air Laboratory Results Laboratory Results - last 24 hr 08/07/23 06:12 WBC 11.37 H RBC 2.65 L Hgb 8.1 L Hct 26.8 L MCV 101.1 H MCH 30.6 MCHC 30.2 L RDW Std Deviation 59.1 H RDW Coeff of Marcelino 16.2 H Plt Count 170 MPV 11.5 Absolute Nucleated RBC 0.07 Nucleated RBC % (auto) 0.6 ESR 10 Sodium 140 Potassium 4.4 Chloride 102 Carbon Dioxide 22 Anion Gap 16 H BUN 68 H Creatinine 10.22 H* D Est Cr Clr Drug Dosing 8.4 Est GFR ( Amer) 5.7 Est GFR (Non-Af Amer) 4.9 BUN/Creatinine Ratio 6.7 L Glucose 141 H Calcium 8.1 L C-Reactive Protein 1.72 H Vitamin B12 239 Folate 7.52 TSH 1.426 PG Care Time/CCT Total # of Minutes Spent Total Time Spent with Patient: Total time spent is greater than 50% in coordination of care (as documented) at patient's floor/unit and/or counseling patient: Coding Level of Care Code 82594 SUB INP/OBS CARE 3/50MIN Diagnoses ESRD on dialysis N18.6; Z99.2 Anemia in chronic kidney disease N18.9; D63.1 Hyperphosphatemia E83.39 Coronary artery disease I25.10
[2023-08-07] MEDS: predniSONE 20 MG TAB PO STA (09:09)
[2023-08-07] MEDS: FOLIC ACID 400 MCG TAB PO SCH (09:10)
[2023-08-07] MEDS: CYANOCOBALAMIN (B-12) 500 MCG TABLET PO SCH (09:10)
[2023-08-07 09:32] LABS: BUN Creatinine Ratio 6.7 (10-20); Calcium 8.1 mg/dl (8.6-10.3); Creatinine Clr Calc Pharmacy 8.4 ml/min; Est GFR (African American) 5.7 ml/min; Est GFR (Non-African American) 4.9 ml/min; Potassium 4.4 mmol/L (3.5-5.1)
--- NOTE | 2023-08-07 12:55 | Discharge Summary ---
Date of Service August 07, 2023 Admission HPI Per Admitting Provider Sesar Hernandez is a 58 year old male with ESRD on dialysis who presents to the ER with chest pain. He reports currently chest pain started on Saturday/Saturday with severity 10/10 after walking he sat down had sharp pain in chest, took deep breaths and relaxed and went away. Extreme pain lasted for 3 minutes and was just mild for a while after that. He noticed during the walk he was much more fatigued and short of breath than usual. He was doing well until Saturday he noticed it again but not as strong and not as sharp, just bothersome, unsure how long it lasted but was pain free in between episodes. Yesterday morning when he got up went for walk and after walk again he got pain again. This morning he didn't go for a walk, just went to dialysis and it started hurting a bit at dialysis (which he completed), when he go home after dialysis while getting garbage outside it started again, went to sit down and resolved, currently he is pain free. Associated trying to catch his breath and nausea (although not abnor mal for him). No diaphoresis. No radiation. He is on doxycycline chronically due to prior osteomyelitis in his left foot (subsequently amputated), Currently on doxycycline 100mg PO BID since last Sat as his right stump has a slight open area after knocking it going up steps and stumbling, no surrounding cellulitis. No fever or chills. Discharge Data Allergies Allergy/AdvReac Type Severity Reaction Status Date / Time finasteride Allergy Intermediate Hives Verified 07/26/23 09:00 hydrocodone Allergy Intermediate Rash Verified 07/26/23 09:00 Penicillins Allergy Intermediate RASH, Verified 07/26/23 09:00 HIVES, ITCHING losartan AdvReac Nausea Verified 07/26/23 09:00 Consultations 08/01/23 17:06 ED Decision to Admit Stat 08/01/23 18:27 Consult Cardiology Routine Consult Nephrology Routine Procedures Performed Operation Date: 08/05/23 08:00 Actual Procedures p Cineradiography w/Routine Exam - Finn Tineo MD s Cath, Left with Cors and Vent - Finn Tineo MD s Ultrasound Vascular Access - Finn Tineo MD Ordered Studies 08/05/23 08:10 CL Cath Imgs for PACS use only Routine 08/06/23 12:51 US venous doppler LE BI Routine Hospital Course (1) Chest pain: Admitted after having had 2+ days of continuous chest pain at home Peak troponin 333, falling to 150 most recently Treated as an NSTEMI with 48-hour course of IV heparin (stopped 08/02) Remains on aspirin 81mg daily, meto succ daily, lipitor 40mg daily (LDL 86 this admission) Echo - EF 35-40%, mild AR and mod-severe , mild MR and mod MS, elevated RVSP and mildly dilated IVC s/p heart cath yesterday by Dr Finn Tineo with results as noted below LAD lesion was not intervened on [place] not to be acute and not the cause of current symptoms Cardiology advised close outpatient f/u to monitor ongoing symptoms (either from CAD or his valvular disease) If his chest pain was not due to the CAD seen on cath - other etiology?? Performed VTE w/u today -- patient reluctant to have more IV contrast today (ie CTA chest) thus performed VQ scan --> low prob for PE LE venous dopplers neg for DVT If not pulmonary or cardiac -- musculoskeletal? But this wouldn't cause his troponin to rise Doubt GI / GERD He will need very close f/u post-discharge with [facility] (2) Type 2 AR (myocardial infarction): At minimum had myocardial demand ischemia at time of admission Can't rule out ACS but felt to not have such per cardiology Peak troponin 333 s/p cath with results as below (3) Coronary artery disease: s/p heart cath on 08/05/23 - Dr Tineo. Findings: LM -normal caliber, no significant disease LAD -medium caliber, calcified, 60 to 70% mid segment stenosis at takeoff of D2 distal vessel without significant disease and extends to apex. Circumflex -medium caliber vessel, calcified 40% ostial, 30% diffuse proximal to mid disease. Small OM 3 with 50% ostial stenosis. Left PLB without significant disease. RCA -dominant, large caliber, calcified, 20 to 30% distal. RPDA, RPL without significant disease. LVEDP -[address] Tineo the 60-70% LAD lesion unlikely causing symptoms. (4) Valvular heart disease: moderate moderate MS these will need to be followed closely over time by cardiology will need to see which cardiology group he would like to follow with (5) Cardiomyopathy: EF 35-40% on echo this admission with septal hypokinesis and valvular disease as well (mod , mod MS). s/p heart cath with results as below. cont metoprolol succ 50mg qam. would patient need low-dose Entresto?? defer that decision to cardiology/nephrology. HD twice weekly for volume control. (6) Anemia in chronic kidney disease: Hgb 8.8-->7.9 (historically 8-10) Fe studies acceptable; no IV venofer at this time Check B12/folate in am (7) ESRD on hemodialysis: Continue sodium bicarbonate supplementation BID Continue Sevelamer TID with meals Appreciate nephrology assistance s/p HD yesterday following his heart cath with 1.5 L of UF removed given his elevated end-diastolic pressure on cath - HD 3 days/week?? will d/w Dr Angel next scheduled HD treatment is in [place] on , 08/07 (8) GERD (gastroesophageal reflux disease): Continue pantoprazole (9) Hypertension: Continue amlodipine bid Continue metoprolol succ 50mg daily Continue flomax 0.4mg BID (10) Chronic constipation: Continue linaclotide (11) Psoriatic arthritis: Follows with Dr Dylan White Rheumatology Continue chronic prednisone 10mg/day Did not receive stress dose steroids this admission - his fatigue, weakness, etc could be from needing stress dose steroids Thus, give additional 25mg of prednisone today, 20mg tomorrow, and wean back to usual 10mg/day dose No evidence of any inflammatory arthritis today on exam (12) Chronic prescription opiate use: Continue his usual morphine ER 30mg BID (13) Macrocytic anemia: previous h/o B12 and folate deficiencies repeat levels in am and replete if needed (14) Chronic ulcer of right ankle: right ankle stump ulceration - chronic present on admission previous history of osteomyelitis of the foot leading to amputation Dr Goodwin had done previous surgery on his foot/ankle 06/08/22 -- report from that surgery --> POSTOPERATIVE DIAGNOSES: 1. Right foot osteomyelitis of the distal talus. 2. Tenosynovitis of the flexor hallucis longus tendon with degradation and tearing of the distal tendon. 3. A 3 cm diameter x 0.4 cm depth ulceration, right distal residual foot. 4. 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 5. Abscess, dorsal and medial right foot. 6. Osteomyelitis of the right calcaneus. PROCEDURE: 1. Right foot excision/exostectomy osteomyelitis of the talus. 2. Tenosynovectomy of the flexor hallucis longus tendon. 3. Partial resection flexor hallucis longus tendon. 4. Excision/exostectomy osteomyelitis of the calcaneus. 5. Debridement 3 cm diameter x 0.4 cm depth foot ulcer. 6. Evacuation abscess, dorsal and medial right foot. 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 chest pain - resolved; uncertain cause - possibly muscle in origin, possibly heart-related - close follow-up needed with [facility] 2. chronic wound of right ankle - follow-up with Dr Goodwin needed 3. end-stage renal disease on dialysis 2x/week 4. coronary artery disease as seen on heart catheterization 5. aortic stenosis 6. mitral stenosis 7. chronic prednisone use for arthritis - followed by [facility] 8. vitamin B12 deficiency; low-normal folic acid level 9. new diagnosis of "cardiomyopathy" (decrease in heart function - exact cause uncertain) - cardiology follow-up needed Activity: Per Instructions section Non-emergency contact: Primary Care Provider, Specialist and Geriatric Nurse Call non-emergency contact if: you have any medication questions, your symptoms worsen, you have a fever, your wound has increased redness, your wound has increased drainage and your wound pain has increased Follow-up/Referrals: Harshad Vences MD [Physician] - (Dr Vences OR Chaz Manley - [facility] AT THE [place] OFFICE - 2-4 weeks, f/u for CAD. ) Em Brannon DO [Primary Care Provider] - Neo Goodwin DO [Surgeon] - (first available - recheck of R ankle chronic ulcer, etc.) Diet: Dialysis Renal Fluids: 1500ml (6 cups) Addtl Attending Provider Instructions: Mr Hernandez, You were hospitalized for chest pain. Fortunately the pain resolved after you were admitted. You were treated with a series of medicines including IV heparin, metoprolol, etc for your heart. Echocardiogram of your heart showed that the heart function has decreased over the last year. We can quantify the pumping ability of the heart with a number called the "ejection fraction." Normal is 50% or higher; your number is 35-40%. A decrease in the ejection fraction means that you have cardiomyopathy (see handout). The echo also showed that you have 2 narrowed heart valves of moderate degree - the aortic valve and the mitral valve. It is uncertain what caused the drop off in the heart function. The [facility] Cardiologists added several new heart medicines due to the cardiomyopathy as well as the coronary artery disease found on the catheterization done by Dr Finn Tineo. In addition to echo and cardiac catheterization we also did dopplers of your legs to rule out blood clots (dopplers were negative) and a test for blood clots of the lungs (VQ scan was negative/normal/low suspicion for blood clots). After doing all of this testing the cause of your pain was not fully certain. It is possible some of the pain was due to muscle pain. We can't 100% exclude coronary disease as the cause of the pain. The catheterization showed you have a blockage of 60-70% in one of the coronary arteries. It will be very important for you to follow with cardiology for the valve problems as well as the coronary disease. Recommendations - 1. new medicines for your heart - * metoprolol succinate 50mg once daily * aspirin 81mg once daily - purchase [id number] * atorvastatin 40mg once daily (cholesterol medication - to stop progression of the narrowed coronary artery found on catheterization) 2. if you ever have chest pain, either alone or with other symptoms (shortness of breath, severe sweat, nausea, vomiting, Left arm pain, etc), you can take nitroglycerin under the tongue. This is for emergency purposes. Hopefully you will never have to use this medicine. If you have to take nitroglycerin under the tongue please seek medical attention right away. 3. we changed the following blood pressure medicines - * we INCREASED your amlodipine to 5mg TWICE DAILY * we STOPPED your lisinopril 4. we checked your folic acid levels and B12 level. Your folic acid level is at the lower limit of normal, and you are deficient in B12. Take as follows - * [id number] vitamin B12 1000mcg (1mg) once daily x 6 months * increase your folic acid to 1000mcg (1mg) once daily x 30 days - this is a prescription I called to your pharmacy for you (you had previously been taking a lower dose of folic acid) 5. please consider increasing your dialysis treatments to 3 times each week. With your heart problems it may become exceedingly difficulty to manage fluid with twice weekly dialysis sessions only. 6. wound care for your draining ulcer on the right ankle - * cleanse with saline; pat dry; cover with Aquacel Ag; cover with optifoam; change dressings every other day * take doxycycline 100mg twice daily until you see Dr Goodwin from orthopedics; I refilled the doxycycline for you 7. Tomorrow - 08/07/24 - take a total of 20mg of prednisone. Then, starting Saturday08/09/23, resume your usual dose of prednisone 10mg/day. Follow-up - see separate section Report for your usual dialysis treatment tomorrow in [place] Return to [facility] if - * you have chest pains * you have shortness of breath * you have to take nitroglycerin tablets * you have any concerns about your right ankle * you have any concerns about the right groin catheterization site (swelling, redness, increased pain, etc) * any other concerns It was our pleasure to care for you! -Dr Maya Addtl Inclusion Special Education Teacher Provider Instructions: Instructions for going home after Cardiac Catheterization Care for the Catheter Insertion Site Your catheterization was performed in the femoral artery in the groin (in the area at the top of your thigh) on the right side. When you go home, there will be a bandage (dressing) over the catheter insertion site (also called the wound site). * The morning after your procedure, you may take the dressing off. The easiest way to do this is when you are showering, get the tape and dressing wet and remove it. * After the bandage is removed, cover the area with a small adhesive bandage. It is normal for the catheter insertion site to be black and blue for a couple of days. The site may also be slightly swollen and pink, and there may be a small lump (about the size of a quarter) at the site. * Wash the catheter insertion site at least once daily with soap and water. Place soapy water on your hand or washcloth and gently wash the insertion site; do not rub. * Keep the area clean and dry when you are not showering. * Do not use creams, lotions or ointment on the wound site. * Wear loose clothes and loose underwear. * Do not take a bath, tub soak, go in a Jacuzzi, or swim in a pool or rodriguez for one week after the procedure. Activity Guidelines Plan to take it easy and rest over the next 2-3 days. For femoral cardiac cath * Do not strain during bowel movements for the next 3 to 4 days after the procedure to prevent bleeding from the catheter insertion site. * Avoid heavy lifting (more than 10 pounds) and pushing or pulling heavy objects for the first 5 to 7 days after the procedure. * Do not participate in strenuous activities unless your botany teacher states it is ok to do so. Take it easy until you see cardiology in the clinic. * You may climb stairs if needed, but walk up and down the stairs more slowly than usual. * Gradually increase your activities until you reach your normal activity level within one week after the procedure. Pending Studies at Discharge: No Stand-Alone Forms: My [facility], Smoking Cessation Medications and DC Order Prescriptions: New atorvastatin 40 mg Tablet 40 mg PO QAM Qty: 30 2RF metoprolol succinate 50 mg Tablet Extended Release 24 Hr 50 mg PO QAM Qty: 30 2RF aspirin 81 mg Tablet,Delayed Release (Dr/Ec) 81 mg PO QAM Qty: 90 3RF Rx Instructions: purchase [id number] nitroglycerin 0.4 mg tablet, sublingual 0.4 mg sublingual Q5M PRN (Reason: chest pain) Qty: 1 0RF Rx Instructions: max 3 doses in 15 minutes. cyanocobalamin (vitamin B-12) 1,000 mcg tablet 1,000 mcg PO DAILY Qty: 90 1RF Rx Instructions: purchase [id number]; take for 6 months. Continued (DME) Prosthetic supplies See Rx Instructions .Route .MEDSUPPLY Qty: 1 0RF Rx Instructions: Locking liner Spacer socks suspension sleeves tamsulosin 0.4 mg capsule 0.4 mg PO BID Qty: 180 3RF Veltassa 16.8 gram powder in packet 16.8 g PO DAILY Qty: 30 4RF (DME) Manual Wheelchair Device See Rx Instructions .Route Qty: 1 0RF Rx Instructions: As directed promethazine 25 mg tablet 25 mg PO TID PRN (Reason: nausea and vomiting) Qty: 20 0RF ipratropium bromide 21 mcg (0.03 %) spray,non-aerosol 2 spray intranasal BID Qty: 90 2RF Rx Instructions: administer into each nostril Linzess 145 mcg capsule 145 mcg PO DAILY Qty: 30 2RF lactulose 10 gram/15 mL solution 30 ml PO BID PRN (Reason: Constipation) Qty: 946 0RF zolpidem 10 mg tablet 10 mg PO HS Qty: 90 0RF Rx Instructions: TAKE 1 TABLET BY MOUTH EVERY DAY AT BEDTIME ondansetron 4 mg tablet,disintegrating 4 mg PO Q8H PRN (Reason: nausea and vomiting) Qty: 30 0RF morphine [MS Contin] 30 mg tablet extended release 30 mg PO Q12H Qty: 60 0RF (DME) RT silicone partial foot prostehsis See Rx Instructions .Route .MEDSUPPLY Qty: 1 0RF Rx Instructions: As directed. functional level K3 (DME) R partial foot prosthesis with arch support See Rx Instructions .Route .MEDSUPPLY Qty: 1 0RF Rx Instructions: As directed (DME) Locking Liners, Liner Liners, 1 ply spacer socks See Rx Instructions .Route .MEDSUPPLY Qty: 1 0RF Rx Instructions: As directed (DME) Repair L BKA prosthesis See Rx Instructions .Route .MEDSUPPLY Qty: 1 0RF Rx Instructions: As directed (DME) R Toe off carbon fiber AFO See Rx Instructions .Route .MEDSUPPLY Qty: 1 0RF Rx Instructions: As directed (DME) Protective boot, R foot See Rx Instructions .Route .MEDSUPPLY Qty: 1 0RF Rx Instructions: As directed (DME) R hand prosthesis See Rx Instructions .Route .MEDSUPPLY Qty: 1 0RF Rx Instructions: As directed acetaminophen [Tylenol Extra Strength] 500 mg Tablet 1,000 mg PO TID PRN (Reason: Pain) pantoprazole 40 mg tablet,delayed release (DR/EC) 40 mg PO HS clobetasol 0.05 % Cream 1 applic TOPICAL BID PRN (Reason: AFFECTED AREA NEEDED) sevelamer carbonate [Renvela] 800 mg tablet 2,400 mg PO TIDM sodium bicarbonate 650 mg tablet 1,300 mg PO BID calcium carbonate [Tums] 200 mg calcium (500 mg) Tablet,Chewable 200 mg PO BID PRN (Reason: Heartburn) sevelamer carbonate 800 mg tablet 800 mg PO .WITH SNACKS prednisone 5 mg tablet 10 mg PO DAILY doxycycline hyclate 100 mg capsule 100 mg PO BID Qty: 60 0RF Changed amlodipine 5 mg tablet 5 mg PO BID Qty: 60 2RF folic acid 1 mg tablet 1 mg PO DAILY Qty: 30 0RF Discontinued lisinopril 5 mg tablet 5 mg PO QAM Discharge Orders: Discharge Order (Routine); Ordered 08/07/23 Ordered By: Gualberto Bess/Other Patient Handouts: CAD, Cardiomyopathy Dc Admission Data Admit Date/Time: 08/01/23 17:12 Attending Provider: Gualberto Maya Admit Provider: Gualberto Barlow Primary Care Provider: Em Brannon Other Providers: Gualberto Barlow; Finn Pollack; Xander Barreto Other Interventions: Discharge Summary Assessment (RN) Last Done: 08/07/23 12:42 Coding Diagnoses Chest pain R07.9 Type 2 AR (myocardial infarction) I21.A1 Coronary artery disease I25.10 Valvular heart disease I38 Cardiomyopathy I42.9 Anemia in chronic kidney disease N18.9; D63.1 ESRD on hemodialysis N18.6; Z99.2 GERD (gastroesophageal reflux disease) K21.9 Hypertension I10 Chronic constipation K59.09 Psoriatic arthritis L40.50 Chronic prescription opiate use Z79.891 Macrocytic anemia D53.9 Chronic ulcer of right ankle L97.319 Acquired absence of right foot Z89.431 Acquired absence of right finger(s) Z89.021 History of nephrectomy, left Z90.5 Peripheral arterial disease I73.9 Below-knee amputation of left lower extremity S88.112
== END 2023-08-07 13:05 | disposition home or self-care (01) | DRG 280 ==
LOC: ED 13:44 → 2E 17:12 → SUATTDRO 17:12 → 2E 17:57